=== PATIENT | female | born 1945 | race Caucasian/White ===

== ENCOUNTER → 2020-02-25 06:35 | Outpatient (CLI) | payer MEDICARE, SELFPAY ==
[2020-02-25 07:02] LABS: Absolute Lymphocyte Count 1.52 X10^3/uL (0.83-4.51); Absolute Neutrophil Count 7.6 X10^3/uL (2.0-7.7); Basophil# 0.05 X10^3/uL; Basophil% 0.5 % (0-1); Eosinophil# 0.08 X10^3/uL; Eosinophils% 0.8 % (0-5); Hematocrit 37.6 % (37-47); Hemoglobin 12.4 g/dL (12.0-15.0); Lymphocyte # 1.52 X10^3/ul (4.0); Lymphocyte % 14.4 % (19-41); Mean Corpuscular Hgb 29.6 pg (27.0-32.0); Mean Corpuscular Volume 89.7 fL (81-99); Mean Platelet Vol. 9.6 fl (6.2-12.0); Monocyte# 1.25 X10^3/uL; Monocyte% 11.8 % (0-10); NRBC Flagged by Analyzer 0 % (0-5); Neutrophil # 7.61 X10^3/uL (2.7-7.7); Neutrophil % 71.9 % (47-70); Platelet Count 304 K/mm3 (150-450); RBC Distribution Width CV 13.1 % (11.6-14.6); RBC Distribution Width SD 42.8 fl (35.1-43.9); Red Blood Count 4.19 M/mm3 (4.2-5.4); White Blood Count 10.6 K/mm3 (4.4-11.0)
[2020-02-25 07:26] LABS: ALB/GLOB Ratio 0.9 RATIO (0.9-2.4); AST(SGOT) 30 U/L (15-37); Alanine Aminotransfer ALT/SGPT 30 U/L (13-56); Albumin, Serum 3.7 g/dL (3.2-5.0); Alkaline Phosphatase 62 U/L (45-117); Anion Gap 6 (5-15); BUN 12 mg/dL (7-18); BUN/Creat Ratio 15.9 RATIO (10-20); Calcium,Total 8.7 mg/dL (8.5-10.1); Chloride 100 mmol/L (98-107); Cholesterol 146 mg/dL (200); Creatinine, Serum 0.76 mg/dL (0.55-1.02); EST Glomerular Filtration Rate 80 mL/min (>60); Est Glom Filt Rate - Afr Amer 96 mL/min (>60); Globulin 3.9 g/dL (2.2-4.2); Glucose 92 mg/dL (74-106); High Density Lipoprotein 73 mg/dL; Potassium 4.3 mmol/L (3.5-5.1); Protein, Total 7.6 g/dL (6.4-8.2); Sodium Level 133 mmol/L (136-145); T4 Free Direct 0.91 ng/dL (0.76-1.46); Thyroid Stim Hormone (TSH) 6.16 uIU/mL (0.358-3.74); Triglycerides 101 mg/dL; Very Low Density Lipoprotein 20 mg/dL (5-40)
== END ==
PROVIDERS: PCP Family Medicine; Referring Provider Family Medicine; Visit Provider Family Medicine
DX: E87.1 Hypo-osmolality and hyponatremia (principal); I25.810 Atherosclerosis of coronary artery bypass graft(s) without angina pectoris; I10 Essential (primary) hypertension; E78.00 Pure hypercholesterolemia, unspecified
CPT/HCPCS: 36415; 80053; 80061; 84439; 84443; 85025

== ENCOUNTER 2020-05-30 15:02 | Observation (INO) | payer MEDICARE, SELFPAY ==
[2020-05-30 15:05] VITALS: BP 142/72; PULSE 78; RESP 18; TEMP 35.6; O2SAT 100; BMI 19.1
--- NOTE | 2020-05-30 15:21 | CT_ITS ---
STUDY: CT ABDOMEN AND PELVIS WITH CONTRAST REASON FOR EXAM: Female, 75 years old. N/V/D, ABD PAIN, CABG, OTILIA, APPY, SOFIA, PESSARY RADIATION DOSAGE (If Supplied By Facility): CTDIvol = ( 5.75 ) mGy, DLP = ( 255.72 ) mGycm TECHNIQUE: Transaxial images were obtained from the dome of the diaphragm to the symphysis pubis with oral contrast. Oral and amp; IV Gastrografin and amp; 100mL Isovue-300 was administered. Sagittal and coronal images were reconstructed. Individualized dose optimization techniques were used for this CT. COMPARISON: None. FINDINGS: The visualized lung bases are unremarkable. The visualized portions of the heart are within normal limits. Normal liver. There are surgical clips in the gallbladder fossa consistent with a prior cholecystectomy. Normal spleen. Normal pancreas. Normal bilateral adrenal glands. No acute abnormalities of the kidneys. Multiple bilateral simple renal cysts measuring as much as 5.2 cm. No stones. No hydronephrosis. Stomach is distended with contrast. Normal appearance of the small bowel. No small bowel obstruction. No dilated loops. Normal appearance of the right colon. However contrast has not progressed beyond the hepatic flexure. Transverse colon and descending colon and rectosigmoid are therefore suboptimally evaluated. There is probable prominent bowel wall thickening involving the ascending colon and rectosigmoid consistent with nonspecific colitis. Normal abdominal aorta. Normal inferior vena cava. Normal retroperitoneum. Normal urinary bladder. There is absence of the uterus consistent with a prior hysterectomy. Pessary is seen in the vagina. Normal abdominal wall. Normal osseous structures. CT/Abdomen/Pelvis WITH Contrast IMPRESSION: Findings most consistent with severe nonspecific colitis of the descending colon and rectosigmoid. Consider colonoscopy. Electronically Signed: Jose Danielson MD at 17:27 EST , Service support ,
--- NOTE | 2020-05-30 15:23 | ED.VISSUMM ---
- ER Visit Summary Date of Service: 05/30/20 Chief Complaint: [Vomiting and diarrhea as well as abdominal pain] History of Present Illness: The patient is a 75 F [presents to the emergency department with symptoms that started yesterday. Patient states that she had frequent watery stools yesterday that were bloody and she also vomited about 10 times. She described diffuse abdominal discomfort that was crampy. This morning patient states that she was having some watery stools again and was incontinent of stool. She is not had any further vomiting today. She denies any fever. She denies cough. She denies any sick contacts or exposures to newly with COVID-19. Patient denies recent antibiotic usage. Patient was seen in urgent care earlier today and had lab work ordered as well as a Covid test that was sent out. Patient was then called and told that she had an elevated white blood cell count and abnormal electrolytes and to be evaluated in the emergency department. Currently she rates her pain is a 2 out of 10 and diffuse. No history of inflammatory bowel disease. Patient does have history of hypertension as well as high cholesterol. She has had a cardiac stent placed in the past and she had a bilateral mastectomy.] Physical Examination: [HEENT-PERRLA, EOMI. Cranial nerves II through XII grossly intact. TMs clear. Mucous membranes moist. No adenopathy. Cardiovascular-regular rate and rhythm without murmur or ectopy Lungs-clear to auscultation, chest wall stable without crepitus or subcu emphysema Abdomen-normoactive bowel sounds, soft. Patient has some mild diffuse tenderness on exam. There is no rebound, rigidity, or cranial signs. Extremities-intact ?4, normal range of motion, normal pulses, atraumatic] Test Results: [CBC with differential showed a white count of 27.6, hemoglobin 12.5, hematocrit 37, placed 324. Chemistries showed a sodium of 126, potassium 4.5, chloride 93, CO2 28, glucose 119, BUN 31 and creatinine 1.53.] CT scan of the abdomen pelvis read by radiology as diffuse colitis of the left side of the colon. Emergency Department Course and Treatment: [IV line established on arrival. Patient was given normal saline. Patient started on Cipro and Flagyl IV.] Treatment Plan: [Admit for fluids and IV antibiotics] Disposition: [Admit] Impression: [Colitis Acute kidney injury] This note was generated with [employer] dictation software. It may contain incorrect words, spelling, and punctuation that were not noted in review of the chart prior to signing ED Disposition - Plan for ED Patient: Referrals: Adela Harley MD [Primary Care Provider] -
[2020-05-30] MEDS: 0.9% Normal Saline 1,000 ML 1000 ML IV (15:30)
[2020-05-30 15:52] LABS: Absolute Lymphocyte Count 1.32 X10^3/uL (0.83-4.51); Absolute Neutrophil Count 23.7 X10^3/uL (2.0-7.7); Basophil# 0.06 X10^3/uL; Basophil% 0.2 % (0-1); Eosinophil# 0.01 X10^3/uL; Hematocrit 37.1 % (37-47); Hemoglobin 12.5 g/dL (12.0-15.0); Lymphocyte # 1.32 X10^3/ul (4.0); Lymphocyte % 4.8 % (19-41); Mean Corp Hgb Conc 33.7 g/dL (32-36); Mean Corpuscular Hgb 28.9 pg (27.0-32.0); Mean Corpuscular Volume 85.7 fL (81-99); Mean Platelet Vol. 9.8 fl (6.2-12.0); Monocyte# 2.27 X10^3/uL; Monocyte% 8.2 % (0-10); NRBC Flagged by Analyzer 0 % (0-5); Neutrophil # 23.65 X10^3/uL (2.7-7.7); Neutrophil % 85.7 % (47-70); POSITIVE DIFFERENTIAL YES; Platelet Count 324 K/mm3 (150-450); RBC Distribution Width CV 13.1 % (11.6-14.6); RBC Distribution Width SD 40.5 fl (35.1-43.9); Red Blood Count 4.33 M/mm3 (4.2-5.4); White Blood Count 27.6 K/mm3 (4.4-11.0)
[2020-05-30 16:03] LABS: AST(SGOT) 36 U/L (15-37); Alanine Aminotransfer ALT/SGPT 27 U/L (13-56); Alkaline Phosphatase 69 U/L (45-117); Anion Gap 5 (5-15); BUN 31 mg/dL (7-18); BUN/Creat Ratio 20.3 RATIO (10-20); Calcium,Total 9.2 mg/dL (8.5-10.1); Chloride 93 mmol/L (98-107); Creatinine, Serum 1.53 mg/dL (0.55-1.02); EST Glomerular Filtration Rate 35 mL/min (>60); Est Glom Filt Rate - Afr Amer 43 mL/min (>60); Estimated Creatinine Clearance 22.28 ml/min; Globulin 4.2 g/dL (2.2-4.2); Glucose 119 mg/dL (74-106); Potassium 4.5 mmol/L (3.5-5.1); Protein, Total 8.2 g/dL (6.4-8.2); Sodium Level 126 mmol/L (136-145)
[2020-05-30 16:19] LABS: Lactic Acid 1.6 mmol/L (0.4-1.9)
[2020-05-30 16:30] LABS: Differential Indicated SCAN CRITERIA MET
[2020-05-30 16:31] LABS: Platelet Estimate ADEQUATE (ADEQ)
[2020-05-30 17:04] LABS: Mucous, Urine 0 SEEN /hpf (<or=2+); Red Blood Cells-Urine 0 SEEN /hpf (0-5); White Blood Cells 0 SEEN /hpf (0-5)
[2020-05-30 17:09] VITALS: BP 144/89; PULSE 80; RESP 16; O2SAT 98
[2020-05-30 17:16] LABS: Color, Urine Yellow (Yellow); Glucose, Dipstick Normal (Normal); Ketone-Dipstick Negative (Negative); Leukocyte Esterase-Dipstick Negative /ul (Negative); Nitrite-Dipstick Negative (Negative); Occult Blood-Urine Negative /ul (Negative); Protein-Dipstick Negative (Negative); Urine Bilirubin Dipstick Negative (Negative); Urine Clarity Clear (Clear); Urine Urobilinogen Normal (Normal)
[2020-05-30 17:33] LABS: Bacteria 1+ /hpf (None Seen); Squamous Epithelial Cells - UA 0-5 SEEN /hpf (5-10)
[2020-05-30] MEDS: Ciprofloxacin 400 MG/200 ML BAG 200 MG IV (17:48)
[2020-05-30 18:01] VITALS: BP 147/87; PULSE 88; RESP 16; TEMP 36.2; O2SAT 98
[2020-05-30 18:12] VITALS: BMI 19.3
[2020-05-30 18:31] VITALS: BP 136/76; PULSE 80; RESP 16; TEMP 37; O2SAT 100
[2020-05-30] MEDS: metroNIDAZOLE 500 MG/100 ML BAG 100 MG IV (18:43)
[2020-05-30] MEDS: 0.9% Normal Saline 1,000 ML 100 ML IV (18:45)
--- NOTE | 2020-05-30 18:48 | HP.PCM_ITS ---
History of Present Illness Date of Admission: 05/30/20 Chief Complaint: Nausea, vomiting, diarrhea The patient is a 75 year old F with a PMH as below who presents to the hospital with 24 to 48 hours of nausea, vomiting, diarrhea. She lives alone and has not had any sick contacts. She denies any fevers, respiratory complaints. She does have chills. She is not hypoxic. Family was concerned that she could have Covid so she went through an outpatient test center and she is awaiting results however CT scan in the ER demonstrated a thickened ascending colon consistent with colitis. In the ER her white count is 27 and her creatinine is double her baseline at 1.53. She was given Flagyl and Cipro in the ER which can be continued. She has some abdominal pain mostly on the left side. She did try to take Pepto-Bismol and Imodium which does not seem to have helped. Past Medical History Allergies lactose Adverse Reaction (Verified 05/30/20 15:03) Upset Stomach Penicillins Adverse Reaction (Verified 05/30/20 15:03) Hives Home Medications: Ambulatory Orders Medication Instructions Recorded Amlodipine [Norvasc] 2.5 mg PO DAILY 05/30/20 Aspirin [Aspirin, Baby] 81 mg PO DAILY@0800 05/30/20 Cholecalciferol (Vitamin D3) 50 mcg PO DAILY 05/30/20 [Vitamin D3] Estradiol 0.5 mg PO DAILY 05/30/20 Estradiol 1 ea VAGINAL WE 05/30/20 L.acidoph,Paracasei, B.lactis 1 ea PO DAILY 05/30/20 [Probiotic] Levothyroxine [Synthroid] 25 mcg PO DAILY 05/30/20 Lisinopril [Zestril] 15 mg PO DAILY 05/30/20 Nitroglycerin [Nitrostat] 0.4 mg SL Q5M PRN 05/30/20 Rosuvastatin Calcium 20 mg PO QHS 05/30/20 Surgical History: cholecystectomy, coronary bypass surgery, hysterectomy Smoking Status: Never smoker Tobacco Use: Non-smoker Alcohol: None Drugs: None - *Family History Maternal History Items: Unknown Paternal History Items: Heart Disease Review of Systems Constitutional: Reports: Chills. Denies: Fever, Weight Change HEENT: Denies: Head Aches, Sinus Congestion, Sinus Drainage Cardiovascular: Denies: Chest Pain, Palpitations Respiratory: Denies: Cough, Shortness of breath at rest, Sputum production Gastrointestinal: Reports: Abdominal Pain, Diarrhea, Nausea, Vomiting Genitourinary: Denies: Dysuria Musculoskeletal: Denies: Joint Pain, Joint Tenderness Skin: Denies: Rash, Wounds Neurological: Denies: Numbness, Tingling, Focal weakness Psychiatric: Denies: Anxiety, Depression Hematologic/ Lymphatic: Denies: Easy Bruising, Easy Bleeding VTE Information - Inpt Only VTE Present on Admission: No - Physical Exam Vitals/I&O's: Vital Signs Temp Pulse Resp BP Pulse Ox 98.6 F 80 16 136/76 H 100 05/30/20 18:31 05/30/20 18:31 05/30/20 18:31 05/30/20 18:31 05/30/20 18:31 Oxygen Delivery Method Room Air Weight: 95 lb 11.2 oz Body Mass Index (BMI) 19.3 Intake and Output for Last 24 Hours 05/28/20 05/29/20 05/30/20 23:59 23:59 23:59 Intake Total 1000 / 1000 Balance 1000 / 1000 General: Alert, Oriented x3, Cooperative, No apparent distress HEENT: Atraumatic, PERRLA, EOMI, Normocephalic Oral: Dry Mucosa Neck: Supple, No JVD Lungs: Clear to auscultation, Normal air movement, No rhonchi, No wheeze, No rales Cardiovascular: Regular rate, Regular Rhythm, Normal S1, Normal S2, No murmurs Abdomen: Soft, Non-Distended, No Hepato-splenomegaly, Tender - Mildly to the left lower quadrant Extremities: No edema, Capillary Refill Less than 3 Seconds Skin: No rashes, No breakdown Neurological: Neuro grossly intact, Sensory exam intact to light touch and pain Psych/Mental Status: Normal Affect, Appropriate Laboratory Results 05/30/20 15:30: WBC 27.6 H, RBC 4.33, Hgb 12.5, Hct 37.1, MCV 85.7, MCH 28.9, MCHC 33.7, RDW Std Deviation 40.5, RDW Coeff of Ni[place] 13.1, Plt Count 324, MPV 9.8, Immature Gran % (Auto) 1.100 H, Neut % (Auto) 85.7 H, Lymph % (Auto) 4.8 L, [place] % (Auto) 8.2, Eos % (Auto) 0.0, Baso % (Auto) 0.2, Absolute Neuts (auto) 23.7 H, Absolute Lymphs (auto) 1.32, Nucleated RBC % 0, Differential Comment COMMENT, Diff Path Review May foll, Platelet Estimate ADEQUATE 05/30/20 15:30: Sodium 126 L, Potassium 4.5, Chloride 93 L, Carbon Dioxide 28.0, Anion Gap 5, BUN 31 H, Creatinine 1.53 H, Estim Creat Clear Calc 22.28, Est GFR (MDRD) Af Amer 43 L, Est GFR (MDRD) Non-Af 35 L, BUN/Creatinine Ratio 20.3 H, Glucose 119 H, Calcium 9.2, Total Bilirubin 1.00, AST 36, ALT 27, Alkaline Phosphatase 69, Total Protein 8.2, Albumin 4.0, Globulin 4.2, Albumin/Globulin Ratio 1.0 05/30/20 15:30: Lactic Acid 1.6 05/30/20 17:00: Urine Color Yellow, Urine Clarity Clear, Urine pH 6.0, Ur Specific [place] 1.010, Urine Protein Negative, Urine Glucose (UA) Normal, Urine Ketones Negative, Urine Occult Blood Negative, Urine Nitrite Negative, Urine Bilirubin Negative, Urine Urobilinogen Normal, Ur Leukocyte Esterase Negative, Urine RBC 0 SEEN, Urine WBC 0 SEEN, Ur Squamous Epith Cells 0-5 SEEN, Urine Bacteria 1+, Urine Mucus 0 SEEN Current Medications Acetaminophen (Acetaminophen 325 Mg Tablet) 650 mg PO Q6H PRN PRN PRN Reason: Pain Score 1-10/Temp > 100.7 F Amlodipine Besylate (Amlodipine 2.5 Mg Tablet) 2.5 mg PO DAILY [facility] Aspirin (Aspirin 81 Mg Tab.Chew) 81 mg PO DAILY@0800 [facility] Heparin Sodium (Porcine) (Heparin Injection (Vial) 5,000 Unit/Ml Vial) 5,000 unit SC Q8 [facility] Sodium Chloride () 1,000 mls @ 100 mls/hr IV .Q10H [facility] Last Admin: 05/30/20 18:45 Dose: 100 mls/hr Documented by: Ciprofloxacin (Cipro) 400 mg in 200 mls @ 200 mls/hr IV Q24 [facility] Metronidazole (Flagyl) 500 mg in 100 mls @ 100 mls/hr IV Q8 [facility] Levothyroxine Sodium (Levothyroxine 25 Mcg Tablet) 25 mcg PO DAILY [facility] Lisinopril (Lisinopril 10 Mg Tablet) 15 mg PO DAILY [facility] Melatonin (Melatonin 3 Mg Tablet) 3 mg PO QHS PRN PRN PRN Reason: INSOMNIA Non-Formulary Medication (Cholecalciferol (Vitamin D3) [Vitamin D3]) 50 mcg PO DAILY [facility] Non-Formulary Medication (Rosuvastatin Calcium) 20 mg PO QHS [facility] Ondansetron HCl (Ondansetron 4 Mg/2 Ml Vial) 4 mg IV Q8H PRN PRN PRN Reason: NAUSEA/VOMITING Sodium Chloride (0.9% Saline Lock 10 Ml Syringe) 10 - 40 ml IV UD PRN PRN Reason: SALINE FLUSH Assessment/Plan 1. Acute colitis -Likely infectious based on the white count, and the acute onset presentation -C. difficile and enteric panels are pending -Continue with Cipro and Flagyl -Continue with IV fluids -N.p.o. for now 2. CAD status post CABG and stent/HTN/HLD -Blood pressure is currently stable -Continue with Norvasc, aspirin, lisinopril, Crestor 3. Hypothyroidism -Stable -Continue Synthroid DVT: Heparin Inpatient E&M: 12259 Init Hosp L2
[2020-05-30] MEDS: Heparin Injection (Vial) 5,000 UNIT/ML VIAL 5000 UNIT SC (21:12)
[2020-05-30] MEDS: Atorvastatin Calcium 40 MG Tablet PO (21:12)
[2020-05-30] MEDS: amLODIPine 2.5 MG Tablet PO (21:25)
[2020-05-30 21:29] VITALS: BP 134/64; PULSE 77; RESP 18; TEMP 36.9; O2SAT 98
[2020-05-31 02:24] VITALS: BP 146/56; PULSE 80; RESP 18; TEMP 37.2; O2SAT 98
[2020-05-31] MEDS: metroNIDAZOLE 500 MG/100 ML BAG 100 MG IV ×3 (05:41→21:47)
[2020-05-31] MEDS: Levothyroxine 25 MCG TABLET PO (05:41)
[2020-05-31] MEDS: Heparin Injection (Vial) 5,000 UNIT/ML VIAL 5000 UNIT SC ×3 (05:41→21:50)
[2020-05-31] MEDS: 0.9% Normal Saline 1,000 ML 100 ML IV ×2 (05:41→19:12)
--- NOTE | 2020-05-31 06:57 | PCM.PN.HOSP ---
Reason for Visit: Follow-up on acute colitis Subjective: Patient was seen and examined. She has had 4 bowel movements today. Complains of mild abdominal discomfort. Denies any fever or chills. Bowel movements have less blood than previous. Objective: Physical exam: General: Alert, Oriented x3, Cooperative, No apparent distress HEENT: Atraumatic, PERRLA, EOMI, Normocephalic Oral: Dry Mucosa Neck: Supple, No JVD Lungs: Clear to auscultation, Normal air movement, No rhonchi, No wheeze, No rales Cardiovascular: Regular rate, Regular Rhythm, Normal S1, Normal S2, No murmurs Abdomen: Soft, Non-Distended, No Hepato-splenomegaly, Tender - Mildly to the left lower quadrant Extremities: No edema, Capillary Refill Less than 3 Seconds Skin: No rashes, No breakdown Neurological: Neuro grossly intact, Sensory exam intact to light touch and pain Psych/Mental Status: Normal Affect, Appropriate Vitals/I&O's: Vital Signs Temp Pulse Resp BP Pulse Ox 98.9 F 80 18 146/56 H 98 05/31/20 02:24 05/31/20 02:24 05/31/20 02:24 05/31/20 02:24 05/31/20 02:24 Oxygen Delivery Method Room Air Weight: 43.409 kg Body Mass Index (BMI) 19.3 Intake and Output for Last 24 Hours 05/29/20 05/30/20 05/31/20 23:59 23:59 23:59 Intake Total 1300 / 1300 1100 / 1100 Output Total 200 / 200 Balance 1300 / 1300 900 / 900 Microbiology Past 72 Hours 05/31/20 02:15 Stool C. difficile DNA Amplification - Final Laboratory Results 05/30/20 15:30: WBC 27.6 H, RBC 4.33, Hgb 12.5, Hct 37.1, MCV 85.7, MCH 28.9, MCHC 33.7, RDW Std Deviation 40.5, RDW Coeff of Niya 13.1, Plt Count 324, MPV 9.8, Immature Gran % (Auto) 1.100 H, Neut % (Auto) 85.7 H, Lymph % (Auto) 4.8 L, [place] % (Auto) 8.2, Eos % (Auto) 0.0, Baso % (Auto) 0.2, Absolute Neuts (auto) 23.7 H, Absolute Lymphs (auto) 1.32, Nucleated RBC % 0, Differential Comment COMMENT, Diff Path Review May foll, Platelet Estimate ADEQUATE 05/30/20 15:30: Sodium 126 L, Potassium 4.5, Chloride 93 L, Carbon Dioxide 28.0, Anion Gap 5, BUN 31 H, Creatinine 1.53 H, Estim Creat Clear Calc 22.28, Est GFR (MDRD) Af Amer 43 L, Est GFR (MDRD) Non-Af 35 L, BUN/Creatinine Ratio 20.3 H, Glucose 119 H, Calcium 9.2, Total Bilirubin 1.00, AST 36, ALT 27, Alkaline Phosphatase 69, Total Protein 8.2, Albumin 4.0, Globulin 4.2, Albumin/Globulin Ratio 1.0 05/30/20 15:30: Lactic Acid 1.6 05/30/20 17:00: Urine Color Yellow, Urine Clarity Clear, Urine pH 6.0, Ur Specific [place] 1.010, Urine Protein Negative, Urine Glucose (UA) Normal, Urine Ketones Negative, Urine Occult Blood Negative, Urine Nitrite Negative, Urine Bilirubin Negative, Urine Urobilinogen Normal, Ur Leukocyte Esterase Negative, Urine RBC 0 SEEN, Urine WBC 0 SEEN, Ur Squamous Epith Cells 0-5 SEEN, Urine Bacteria 1+, Urine Mucus 0 SEEN 05/31/20 06:10: WBC Pending, RBC Pending, Hgb Pending, Hct Pending, MCV Pending, MCH Pending, MCHC Pending, RDW Std Deviation Pending, RDW Coeff of Niya Pending, Plt Count Pending, Neut % (Auto) Pending, Absolute Neuts (auto) Pending 05/31/20 06:10: Sodium Pending, Potassium Pending, Chloride Pending, Carbon Dioxide Pending, Anion Gap Pending, BUN Pending, Creatinine Pending, Est GFR (MDRD) Af Amer Pending, Est GFR (MDRD) Non-Af Pending, BUN/Creatinine Ratio Pending, Glucose Pending, Calcium Pending Current Medications Acetaminophen (Acetaminophen 325 Mg Tablet) 650 mg PO Q6H PRN PRN PRN Reason: Pain Score 1-10/Temp > 100.7 F Amlodipine Besylate (Amlodipine 2.5 Mg Tablet) 2.5 mg PO DAILY@2200 [facility] Aspirin (Aspirin 81 Mg Tab.Chew) 81 mg PO DAILY@0800 [facility] Atorvastatin Calcium (Atorvastatin Calcium 40 Mg Tablet) 40 mg PO QHS [facility] Last Admin: 05/30/20 21:12 Dose: 40 mg Documented by: Cholecalciferol (Cholecalciferol (Vit D3) 1,000 Unit (25mcg)) 2,000 unit PO DAILY [facility] Heparin Sodium (Porcine) (Heparin Injection (Vial) 5,000 Unit/Ml Vial) 5,000 unit SC Q8 [facility] Last Admin: 05/31/20 05:41 Dose: 5,000 unit Documented by: Sodium Chloride () 1,000 mls @ 100 mls/hr IV .Q10H [facility] Last Infusion: 05/31/20 06:41 Dose: 100 mls/hr Documented by: Ciprofloxacin (Cipro) 400 mg in 200 mls @ 200 mls/hr IV Q24 [facility] Metronidazole (Flagyl) 500 mg in 100 mls @ 100 mls/hr IV Q8 [facility] Last Infusion: 05/31/20 06:41 Dose: Infused Documented by: Levothyroxine Sodium (Levothyroxine 25 Mcg Tablet) 25 mcg PO DAILY@0600 [facility] Last Admin: 05/31/20 05:41 Dose: 25 mcg Documented by: Lisinopril (Lisinopril 10 Mg Tablet) 15 mg PO DAILY [facility] Melatonin (Melatonin 3 Mg Tablet) 3 mg PO QHS PRN PRN PRN Reason: INSOMNIA Ondansetron HCl (Ondansetron 4 Mg/2 Ml Vial) 4 mg IV Q8H PRN PRN PRN Reason: NAUSEA/VOMITING Sodium Chloride (0.9% Saline Lock 10 Ml Syringe) 10 - 40 ml IV UD PRN PRN Reason: SALINE FLUSH Medical Necessity - Tobacco Use Smoking Status: Never smoker Tobacco Use: Non-smoker Assessment/Plan 1. Acute colitis, unclear etiology Enteric panel and C. difficile negative Patient clinically improving We will resume patient on diet, continue with IV Cipro and Flagyl, IV fluids 2. CAD status post CABG and stent, continue on aspirin, statin, lisinopril 3. Hypertension, controlled, continue on Norvasc and lisinopril 4. Hypothyroidism, stable, continue on home Synthroid 5. DVT prophylaxis with heparin subcu Inpatient E&M: [id number] [facility] Hosp L2
[2020-05-31 07:30] LABS: Anion Gap 8 (5-15); BUN 20 mg/dL (7-18); BUN/Creat Ratio 25.9 RATIO (10-20); Calcium,Total 8.6 mg/dL (8.5-10.1); Chloride 107 mmol/L (98-107); Creatinine, Serum 0.77 mg/dL (0.55-1.02); EST Glomerular Filtration Rate 78 mL/min (>60); Est Glom Filt Rate - Afr Amer 94 mL/min (>60); Estimated Creatinine Clearance 34.34 ml/min; Glucose 70 mg/dL (74-106); Potassium 4.5 mmol/L (3.5-5.1); Sodium Level 136 mmol/L (136-145)
[2020-05-31 08:41] LABS: Absolute Lymphocyte Count 1.42 X10^3/uL (0.83-4.51); Absolute Neutrophil Count 17.6 X10^3/uL (2.0-7.7); Basophil# 0.06 X10^3/uL; Basophil% 0.3 % (0-1); Hematocrit 34.9 % (37-47); Hemoglobin 11.1 g/dL (12.0-15.0); Lymphocyte # 1.42 X10^3/ul (4.0); Lymphocyte % 6.8 % (19-41); Mean Corp Hgb Conc 31.8 g/dL (32-36); Mean Corpuscular Hgb 28.2 pg (27.0-32.0); Mean Corpuscular Volume 88.6 fL (81-99); Mean Platelet Vol. 10.3 fl (6.2-12.0); Monocyte# 1.71 X10^3/uL; Monocyte% 8.2 % (0-10); NRBC Flagged by Analyzer 0 % (0-5); Neutrophil # 17.56 X10^3/uL (2.7-7.7); POSITIVE DIFFERENTIAL YES; Platelet Count 305 K/mm3 (150-450); RBC Distribution Width CV 13.2 % (11.6-14.6); Red Blood Count 3.94 M/mm3 (4.2-5.4); White Blood Count 20.9 K/mm3 (4.4-11.0)
[2020-05-31 08:44] VITALS: BP 129/64; PULSE 77; RESP 16; TEMP 37; O2SAT 97
[2020-05-31] MEDS: Lisinopril 10 MG Tablet 15 MG PO (08:48)
[2020-05-31] MEDS: Ciprofloxacin 400 MG/200 ML BAG 200 MG IV (09:00)
[2020-05-31 09:05] LABS: Differential Indicated SCAN CRITERIA MET
[2020-05-31 09:30] LABS: Hypochromasia RARE; Platelet Estimate ADEQUATE (ADEQ)
[2020-05-31] MEDS: Aspirin 81 MG TAB.CHEW PO (10:47)
--- NOTE | 2020-05-31 11:40 | CASEMGMT ---
RN LISA Face to Face with patient for initial transition planning/care coordination assessment. RN CM introduced self and role at [facility]. Patient lying in bed, alert and oriented. Patient willing to participate in assessment and is able to answer all questions appropriately. Care providers, pharmacy, and demographics verified. Patient wishes to discharge home, denies need for home health at this time. Patient states she has no further needs or concerns at this time. CM to follow for discharge planning needs that may arise. PCP: [facility] Specialists: none Preferred Pharmacy: [facility] Insurance: [employer] [facility] Prescription Benefit:yes Living Will/HPOA: yes, Camelia Jeffries daughter LNOK: daughter, sister Living Arrangements: Patient lives alone in a 1 story home with no steps to enter the home. Patient states she is independent at home. Transportation: self/daughter DME/HHC: Patient states she has grab bars at home. Denies previous HHC. Disposition Plan: Patient to discharge home with family support and follow-up plans in place. Rita VILLA, RN, CM
[2020-05-31 13:48] VITALS: BP 132/59; PULSE 69; RESP 18; TEMP 36.9; O2SAT 98
[2020-05-31 19:50] VITALS: BP 128/66; PULSE 70; RESP 16; TEMP 37.3; O2SAT 97
[2020-05-31] MEDS: Acetaminophen 325 MG Tablet 650 MG PO (20:30)
[2020-05-31 21:00] VITALS: PULSE 70
[2020-05-31] MEDS: amLODIPine 2.5 MG Tablet PO (21:50)
[2020-05-31] MEDS: Atorvastatin Calcium 40 MG Tablet PO (21:50)
[2020-05-31] MEDS: MELATONIN 3 MG TABLET PO (21:54)
[2020-06-01 03:35] VITALS: BP 137/64; PULSE 67; RESP 16; TEMP 36.9; O2SAT 94
[2020-06-01] MEDS: Levothyroxine 25 MCG TABLET PO (06:09)
[2020-06-01] MEDS: metroNIDAZOLE 500 MG/100 ML BAG 100 MG IV (06:09)
[2020-06-01] MEDS: Heparin Injection (Vial) 5,000 UNIT/ML VIAL 5000 UNIT SC (06:10)
[2020-06-01 08:04] VITALS: BP 122/60; PULSE 67; RESP 16; TEMP 36.7; O2SAT 95
[2020-06-01] MEDS: Aspirin 81 MG TAB.CHEW PO (08:06)
[2020-06-01] MEDS: Lisinopril 10 MG Tablet 15 MG PO (08:06)
[2020-06-01] MEDS: Menthol/Lanolin/Calamine/Znox 113 GM Tube 1 APPLIC TOPICAL (08:07)
[2020-06-01] MEDS: 0.9% Normal Saline 1,000 ML 100 ML IV (08:08)
[2020-06-01] MEDS: Ciprofloxacin 400 MG/200 ML BAG 200 MG IV (10:27)
--- NOTE | 2020-06-01 10:44 | DCINST_ITS ---
- Discharge Diagnoses Reason(s) for Visit for Discharge Instructions: Acute on chronic diarrhea You will use the following diet at home:: Regular Your food should be the consistency of: Regular Your liquids should be the consistency of: Regular/Thin Discharge Activity: Return to Normal Activity Additional Instructions: Continue to keep yourself hydrated. Maintain strict hand hygiene. Continue on your probiotics. Follow-up with your primary care doctor within a week. Complete your antibiotics. You would need to be referred to a scraper operator for further evaluation of your chronic diarrhea Allergies/Adverse Reactions: Allergies lactose Adverse Reaction (Verified 05/30/20 15:03) Upset Stomach Penicillins Adverse Reaction (Verified 05/30/20 15:03) Hives Medications to take at Discharge Amlodipine [Norvasc] 2.5 mg PO DAILY 05/30/20 Aspirin [Aspirin, Baby] 81 mg PO DAILY@0800 05/30/20 Cholecalciferol (Vitamin D3) [Vitamin D3] 50 mcg PO DAILY 05/30/20 Estradiol 0.5 mg PO DAILY 05/30/20 Estradiol 1 ea VAGINAL WE 05/30/20 L.acidoph,Paracasei, B.lactis [Probiotic] 1 ea PO DAILY 05/30/20 Levothyroxine [Synthroid] 25 mcg PO DAILY 05/30/20 Lisinopril [Zestril] 15 mg PO DAILY 05/30/20 Nitroglycerin [Nitrostat] 0.4 mg SL Q5M PRN 05/30/20 Rosuvastatin Calcium 20 mg PO QHS 05/30/20 Acetaminophen [Tylenol Tablet] 650 mg PO Q6H PRN PRN tablet 06/01/20 Ciprofloxacin [Cipro] 500 mg PO BID 5 Days #10 tab 06/01/20 Metronidazole [Flagyl] 500 mg PO TID 5 Days #15 tab 06/01/20 The following prescriptions were given: Ciprofloxacin [Cipro] 500 mg PO BID 5 Days #10 tab Transmission Status: Pending to [facility] Metronidazole [Flagyl] 500 mg PO TID 5 Days #15 tab Transmission Status: Pending to [facility] Primary Care Physician: Adela Harley MD [Primary Care Provider] - Please follow up with your Primary Care Physician in: within 1-2 weeks Test Results: Test results from this visit will be discussed in further detail at your follow- up appointment, if applicable. Proposed Discharge Date: 06/01/20
--- NOTE | 2020-06-01 11:12 | PCM.DC.SUM ---
Discharge Date and Diagnosis Date of Admission: 05/30/20 Date of Discharge: 06/01/20 - Primary Discharge Diagnosis Acute Problems: Acute gastroenteritis, present on admission Acute colitis Hypokalemia Acute kidney injury, prerenal secondary to dehydration from gastroenteritis - Secondary Discharge Diagnosis Chronic Problems: Chronic Problems Hypertension (Chronic) Hospital Course and Treatment Imaging Results: Clinical Impression(s) from Imaging Studies Abdomen/Pelvis CT 05/30/20 15:21 IMPRESSION: Findings most consistent with severe nonspecific colitis of the descending colon and rectosigmoid. Consider colonoscopy. Electronically Signed: Jose Danielson MD at 17:27 EST , Service support , Operations: None Procedures: None Summary of Care Provided: The patient is a 75 year old F with past medical history of CAD status post CABG and stent, hypertension, hypothyroidism who comes in with complaints of abdominal pain, nausea, vomiting, diarrhea. Patient denied any sick contact. Denied any fever. She admitted to chills. Patient admits to chronic diarrhea but this is worse.CT of the abdomen and pelvis showed thickening ascending colon consistent with colitis. She was managed on the [facility] floor, kept n.p.o. initially, managed on IV fluids, IV antibiotics?Cipro and Flagyl. Her acute kidney injury improved. She was allowed to eat. Did not have any worsening symptoms. Her stool for enteric panel and cdiff were negative. Patient had 3 bowel movements on the day of discharge. She was given Imodium. She was given antibiotics to complete a 1 week course. She will follow-up with her primary care doctor for referral to see a program services assistant for further work-up of chronic diarrhea Subjective: On the day of discharge, patient was seen and examined. Denied any new complaints. Objective: Physical exam: General: Alert, Oriented x3, Cooperative, No apparent distress HEENT: Atraumatic, PERRLA, EOMI, Normocephalic Oral: Dry Mucosa Neck: Supple, No JVD Lungs: Clear to auscultation, Normal air movement, No rhonchi, No wheeze, No rales Cardiovascular: Regular rate, Regular Rhythm, Normal S1, Normal S2, No murmurs Abdomen: Soft, Non-Distended, No Hepato-splenomegaly, Tender - Mildly to the left lower quadrant Extremities: No edema, Capillary Refill Less than 3 Seconds Skin: No rashes, No breakdown Neurological: Neuro grossly intact, Sensory exam intact to light touch and pain Psych/Mental Status: Normal Affect, Appropriate - Physical Exam Vitals/I&O's: Vital Signs Temp Pulse Resp BP Pulse Ox 98.0 F 67 16 122/60 H 95 06/01/20 08:04 06/01/20 08:04 06/01/20 08:04 06/01/20 08:04 06/01/20 08:04 Oxygen Delivery Method Room Air Weight: 43.409 kg Body Mass Index (BMI) 19.3 Intake and Output for Last 24 Hours 05/30/20 05/31/20 06/01/20 23:59 23:59 23:59 Intake Total 1300 / 1300 2980.00 / 2980.00 1695 / 1695 Output Total 200 / 200 Balance 1300 / 1300 2780.00 / 2780.00 1695 / 1695 Microbiology Past 72 Hours 05/31/20 02:15 Stool Enteric Bacteriology - Final 05/31/20 02:15 Stool C. difficile DNA Amplification - Final Current Medications Acetaminophen (Acetaminophen 325 Mg Tablet) 650 mg PO Q6H PRN PRN PRN Reason: Pain Score 1-10/Temp > 100.7 F Last Admin: 05/31/20 20:30 Dose: 650 mg Documented by: Amlodipine Besylate (Amlodipine 2.5 Mg Tablet) 2.5 mg PO DAILY@2200 [facility] Last Admin: 05/31/20 21:50 Dose: 2.5 mg Documented by: Aspirin (Aspirin 81 Mg Tab.Chew) 81 mg PO DAILY@0800 [facility] Last Admin: 06/01/20 08:06 Dose: 81 mg Documented by: Atorvastatin Calcium (Atorvastatin Calcium 40 Mg Tablet) 40 mg PO QHS [facility] Last Admin: 05/31/20 21:50 Dose: 40 mg Documented by: Calamine/Phenol (Menthol/Lanolin/Calamine/Znox 113 Gm Tube) 1 applic TOPICAL BID [facility]; Protocol Last Admin: 06/01/20 08:07 Dose: 1 applicatio Documented by: Cholecalciferol (Cholecalciferol (Vit D3) 1,000 Unit (25mcg)) 2,000 unit PO DAILY [facility] Last Admin: 06/01/20 08:06 Dose: 2,000 unit Documented by: Heparin Sodium (Porcine) (Heparin Injection (Vial) 5,000 Unit/Ml Vial) 5,000 unit SC Q8 [facility] Last Admin: 06/01/20 06:10 Dose: 5,000 unit Documented by: Ciprofloxacin (Cipro) 400 mg in 200 mls @ 200 mls/hr IV Q24 [facility] Last Admin: 06/01/20 10:27 Dose: 200 mls/hr Documented by: Metronidazole (Flagyl) 500 mg in 100 mls @ 100 mls/hr IV Q8 [facility] Last Infusion: 06/01/20 07:44 Dose: Infused Documented by: Levothyroxine Sodium (Levothyroxine 25 Mcg Tablet) 25 mcg PO DAILY@0600 [facility] Last Admin: 06/01/20 06:09 Dose: 25 mcg Documented by: Lisinopril (Lisinopril 10 Mg Tablet) 15 mg PO DAILY [facility] Last Admin: 06/01/20 08:06 Dose: 15 mg Documented by: Melatonin (Melatonin 3 Mg Tablet) 3 mg PO QHS PRN PRN PRN Reason: INSOMNIA Last Admin: 05/31/20 21:54 Dose: 3 mg Documented by: Ondansetron HCl (Ondansetron 4 Mg/2 Ml Vial) 4 mg IV Q8H PRN PRN PRN Reason: NAUSEA/VOMITING Sodium Chloride (0.9% Saline Lock 10 Ml Syringe) 10 - 40 ml IV UD PRN PRN Reason: SALINE FLUSH Discharge Diet: No Restrictions Discharge Activity: Return to Normal Activity Home Medications: Medications to take at Discharge Amlodipine [Norvasc] 2.5 mg PO DAILY 05/30/20 Aspirin [Aspirin, Baby] 81 mg PO DAILY@0800 05/30/20 Cholecalciferol (Vitamin D3) [Vitamin D3] 50 mcg PO DAILY 05/30/20 Estradiol 0.5 mg PO DAILY 05/30/20 Estradiol 1 ea VAGINAL WE 05/30/20 L.acidoph,Paracasei, B.lactis [Probiotic] 1 ea PO DAILY 05/30/20 Levothyroxine [Synthroid] 25 mcg PO DAILY 05/30/20 Lisinopril [Zestril] 15 mg PO DAILY 05/30/20 Nitroglycerin [Nitrostat] 0.4 mg SL Q5M PRN 05/30/20 Rosuvastatin Calcium 20 mg PO QHS 05/30/20 Acetaminophen [Tylenol Tablet] 650 mg PO Q6H PRN PRN tab 06/01/20 Ciprofloxacin [Cipro] 500 mg PO BID 5 Days #10 tab 06/01/20 Metronidazole [Flagyl] 500 mg PO TID 5 Days #15 tab 06/01/20 Following Prescriptions Were Given to Patient: Ciprofloxacin [Cipro] 500 mg PO BID 5 Days #10 tab Transmission Status: Received by CHRISTINA H[address] Metronidazole [Flagyl] 500 mg PO TID 5 Days #15 tab Transmission Status: Received by CHRISTINA H[address]LE[address] Primary Care Physician: Adela Harley MD [Primary Care Provider] - Please follow up with your Primary Care Physician in: within 1-2 weeks Disposition: Home Minutes spent on discharge:: 40 Patient Condition:: Stable Medical Necessity - Tobacco Use Smoking Status: Never smoker Tobacco Use: Non-smoker Meaningful Use Info Meaningful Use Diagnoses (Choose all that apply): None applicable Inpatient E&M: 66182 [facility]
[2020-06-01] MEDS: Loperamide 2 MG Capsule 4 MG PO (11:19)
[2020-06-02 12:56] LABS: Pathologist Review Reviewed
[2020-06-02 13:02] LABS: Pathologist Review Reviewed
== END 2020-06-01 12:20 | disposition home or self-care (01) | DRG 392 ==
LOC: ED 15:42 → MS3 17:45
PROVIDERS: Admitting Provider Family Medicine; Emergency Provider Emergency Medicine; PCP Family Medicine; Visit Provider Internal Medicine
DX: K52.9 Noninfective gastroenteritis and colitis, unspecified (principal); N17.9 Acute kidney failure, unspecified; E86.0 Dehydration; I10 Essential (primary) hypertension; E78.5 Hyperlipidemia, unspecified; E03.9 Hypothyroidism, unspecified; E87.6 Hypokalemia; I25.10 Atherosclerotic heart disease of native coronary artery without angina pectoris; Z79.890 Hormone replacement therapy; Z90.13 Acquired absence of bilateral breasts and nipples; Z90.710 Acquired absence of both cervix and uterus; Z95.1 Presence of aortocoronary bypass graft; Z79.899 Other long term (current) drug therapy; Z79.82 Long term (current) use of aspirin
CPT/HCPCS: 36415; 74177; 80048; 80053; 81001; 83605; 85025; 87493; 87506; 96361; 96365; 96366; 96367; 96372; 99218; 99282; J7030; J7050; Q9967; A4216; G0378; J0744

== ENCOUNTER → 2020-06-25 11:37 | Outpatient (CLI) | payer MEDICARE, SELFPAY ==
[2020-05-30 18:12] VITALS: BMI 19.3
[2020-06-25 14:11] LABS: CRP 7.14 mg/L (0.0-3.0); T4 Total, Thyroxin 9.1 ug/dL (4.8-13.9); Thyroid Stim Hormone (TSH) 2.83 uIU/mL (0.358-3.74)
[2020-06-26 20:07] LABS: Endomysial Antibody IgA Negative (Negative)
[2020-06-26 21:44] LABS: Immunoglobulin A 226 mg/dL (64-422); t-Transglutaminase IgA <2 U/mL (0-3)
== END ==
PROVIDERS: PCP Family Medicine; Referring Provider Internal Medicine Gastroenterology; Visit Provider Internal Medicine Gastroenterology
DX: R19.7 Diarrhea, unspecified (principal)
CPT/HCPCS: 36415; 82784; 83516; 84436; 84443; 86140; 86255

== ENCOUNTER → 2020-08-18 07:42 | Outpatient (CLI) | payer MEDICARE, SELFPAY ==
[2020-07-17 14:40] VITALS: BMI 18.9
[2020-08-18 08:53] LABS: Absolute Lymphocyte Count 1.62 X10^3/uL (0.83-4.51); Absolute Neutrophil Count 6.9 X10^3/uL (2.0-7.7); Basophil# 0.08 X10^3/uL; Basophil% 0.8 % (0-1); Eosinophil# 0.13 X10^3/uL; Eosinophils% 1.3 % (0-5); Hemoglobin 11.8 g/dL (12.0-15.0); Lymphocyte # 1.62 X10^3/ul (4.0); Lymphocyte % 16.5 % (19-41); Mean Corp Hgb Conc 31.9 g/dL (32-36); Mean Corpuscular Hgb 28.5 pg (27.0-32.0); Mean Corpuscular Volume 89.4 fL (81-99); Monocyte# 1.12 X10^3/uL; Monocyte% 11.4 % (0-10); NRBC Flagged by Analyzer 0 % (0-5); Neutrophil # 6.86 X10^3/uL (2.7-7.7); Neutrophil % 69.7 % (47-70); Platelet Count 318 K/mm3 (150-450); RBC Distribution Width CV 13.1 % (11.6-14.6); RBC Distribution Width SD 42.9 fl (35.1-43.9); Red Blood Count 4.14 M/mm3 (4.2-5.4); White Blood Count 9.8 K/mm3 (4.4-11.0)
[2020-08-18 09:32] LABS: AST(SGOT) 37 U/L (15-37); Alanine Aminotransfer ALT/SGPT 37 U/L (13-56); Alkaline Phosphatase 54 U/L (45-117); Anion Gap 6 (5-15); BUN 12 mg/dL (7-18); Calcium,Total 9.1 mg/dL (8.5-10.1); Chloride 102 mmol/L (98-107); Cholesterol 146 mg/dL (200); Creatinine, Serum 0.75 mg/dL (0.55-1.02); EST Glomerular Filtration Rate 80 mL/min (>60); Est Glom Filt Rate - Afr Amer 97 mL/min (>60); Free T3 2.3 pg/mL (2.18-3.98); Globulin 3.9 g/dL (2.2-4.2); Glucose 85 mg/dL (74-106); High Density Lipoprotein 65 mg/dL; Potassium 3.9 mmol/L (3.5-5.1); Protein, Total 7.9 g/dL (6.4-8.2); Sodium Level 136 mmol/L (136-145); T4 Free Direct 0.95 ng/dL (0.76-1.46); Thyroid Stim Hormone (TSH) 5.02 uIU/mL (0.358-3.74); Triglycerides 125 mg/dL; Very Low Density Lipoprotein 25 mg/dL (5-40)
== END ==
PROVIDERS: PCP Family Medicine; Referring Provider Family Medicine; Visit Provider Family Medicine
DX: I25.10 Atherosclerotic heart disease of native coronary artery without angina pectoris (principal); E03.9 Hypothyroidism, unspecified
CPT/HCPCS: 36415; 80053; 80061; 84439; 84443; 84481; 85025

== ENCOUNTER → 2020-10-29 09:13 | Outpatient (CLI) | payer MEDICARE, SELFPAY ==
[2020-07-17 14:40] VITALS: BMI 18.9
[2020-10-29 10:28] LABS: Absolute Lymphocyte Count 1.16 X10^3/uL (0.83-4.51); Basophil# 0.05 X10^3/uL; Basophil% 0.7 % (0-1); Eosinophil# 0.04 X10^3/uL; Eosinophils% 0.6 % (0-5); Hematocrit 37.2 % (37-47); Hemoglobin 11.9 g/dL (12.0-15.0); Lymphocyte # 1.16 X10^3/ul (0.83-4.51); Lymphocyte % 16.5 % (19-41); Mean Corpuscular Hgb 28.4 pg (27.0-32.0); Mean Corpuscular Volume 88.8 fL (81-99); Monocyte% 11.3 % (0-10); NRBC Flagged by Analyzer 0 % (0-5); Neutrophil # 4.97 X10^3/uL (2.7-7.7); Neutrophil % 70.5 % (47-70); Platelet Count 282 K/mm3 (150-450); RBC Distribution Width CV 12.9 % (11.6-14.6); RBC Distribution Width SD 41.7 fl (35.1-43.9); Red Blood Count 4.19 M/mm3 (4.2-5.4); White Blood Count 7.1 K/mm3 (4.4-11.0)
[2020-10-29 11:05] LABS: Vitamin B12 431 pg/mL (211-911)
[2020-10-29 11:15] LABS: Ferritin 99 ng/mL (8-252); Free T3 2.4 pg/mL (2.18-3.98); Iron 57 ug/dL (50-170); Iron Binding Capacity,Total 344 ug/dL (250-450); PERCENT IRON SATURATION 16.6 % (15.0-55.0); T4 Free Direct 0.96 ng/dL (0.76-1.46); Thyroid Stim Hormone (TSH) 2.63 uIU/mL (0.358-3.74)
== END ==
PROVIDERS: PCP Family Medicine; Referring Provider Family Medicine; Visit Provider Family Medicine
DX: E03.9 Hypothyroidism, unspecified (principal); D64.9 Anemia, unspecified
CPT/HCPCS: 36415; 82607; 82728; 82746; 83540; 83550; 84439; 84443; 84481; 85025

== ENCOUNTER → 2021-01-09 06:52 | Outpatient (CLI) | payer MEDICARE, SELFPAY ==
[2020-12-24 12:19] VITALS: BMI 19.1
--- NOTE | 2021-01-09 06:54 | ECHOD_ITS ---
Version 2 Reason For Study: s/p CABG Procedure This was a 2D Doppler, Color Flow transthoracic echocardiogram. Exam performed in department. Left Ventricle Normal LV size. Left ventricular systolic function is normal. The estimated ejection fraction is 55 %. No regional wall motion abnormalities noted. Right Ventricle Normal RV size. Normal systolic function. Atria Normal left atrium. Normal right atrium. Mitral Valve Normal mitral valve. Tricuspid Valve Normal tricuspid valve. Mild (1+) tricuspid valve insufficiency. Pulmonary artery systolic pressure is 28 mmHg. Aortic Valve Trisinus/trileaflet aortic valve. Mild (1+) aortic valve insufficiency. Pulmonic Valve Normal pulmonic valve. Great Vessels Normal aortic root. The pulmonary artery is normal size. Normal inferior vena cava. Pericardium/Pleural No pericardial effusion. MMode/2D Measurements & Calculations LVIDd: 3.6 cm IVSd: 0.84 cm Ao root diam: 2.8 cm LVIDs: 2.4 cm LVPWd: 0.83 cm RVDd: 2.6 cm FS: 33.7 % LAV(MOD-bp): 21.0 ml LA A4 area: 7.9 cm2 LA dimension(2D): 2.9 cm LAV(MOD-bp) Indexed: 15.4 ml/m2 LAV(MOD-sp2): 32.3 ml LAV(MOD-sp4): 12.8 ml RA A4 area: 8.7 cm2 Doppler Measurements & Calculations MV E max josep: 89.5 cm/sec Lat Peak E' Josep: 9.7 cm/sec Med Peak E' Josep: 5.7 cm/sec MV A max josep: 82.3 cm/sec E/E' lat: 9.2 E/E' med: 15.8 MV E/A: 1.1 Ao V2 max: 148.0 cm/sec LV V1 max: 89.5 cm/sec PA V2 max: 72.5 cm/sec Ao max P.8 mmHg LV V1 max P.2 mmHg Ao V2 mean: 104.5 cm/sec Ao mean P.7 mmHg Ao V2 VTI: 38.8 cm TR max josep: 246.5 cm/sec TR max P.3 mmHg ECHO/Echo Complete Interpretation Summary Normal LV size. Left ventricular systolic function is normal. The estimated ejection fraction is 55 %. Mild (1+) tricuspid valve insufficiency. Pulmonary artery systolic pressure is 28 mmHg. The global longitudinal strain is normal. The global longitudinal strain = -17. 8 % (normal). Ordering Physician: Josesito Valenzuela Referring Physician: Adela Harley Performed By: Mila Overton, EDGARD, RVT
--- NOTE | 2021-01-09 17:50 | STRESSREP_ITS ---
Stress Test Report Exercise myocardial perfusion stress test. 75-year-old with a history of coronary artery disease status post left internal mammary artery to the left anterior descending artery. Stress protocol: Resting EKG demonstrates sinus bradycardia with a rate of 56 bpm normal intervals are noted resting blood pressure is 128/68 mmHg. The patient exe rcised according to the regular Buzz protocol for total duration of 6 minutes. Patient completed stage II of the Buzz protocol. The maximum heart rate attained was 125 bpm which was 85% of maximum predicted heart rate the maximum workload was 7 metabolic equivalents. At rest there were no ST or T wave changes noted to suggest ischemia and at peak exercise upsloping ST changes were noted with did not meet the criteria for ischemia. There was mild chest pressure noted as well as shortness of breath. The peak blood pressure was 160/90 mmHg. Myocardial perfusion protocol. 10.0 mCi of technetium 99m sestamibi was injected at rest. The patient exercised according to regular Buzz protocol. At peak exercise 31.5 mCi of technetium 99m sestamibi was injected stress images were obtained stress and rest images were reconstructed and compared in the short axis vertical long and horizontal long axis. Gated images were also obtained. Perfusion SPECT analysis: Review of the stress images demonstrate a normal cardiac silhouette size. There was reduction of perfusion noted in the mid anterior wall with normal perfusion noted in the septum lateral wall and inferior wall. The resting images demonstrate improved perfusion in the anterior wall suggesting mid anterior ischemia. No previous infarct is noted. Gated SPECT analysis: The gated ejection fraction is noted to be 77%. Conclusion: Exercise myocardial perfusion stress test with mid anterior ischemia noted. Mild chest pressure noted with exercise suggestive of ischemia. Preserved ejection fraction.
== END ==
PROVIDERS: PCP Family Medicine; Referring Provider Internal Medicine Cardiovascular Disease; Visit Provider Internal Medicine Cardiovascular Disease
DX: I25.10 Atherosclerotic heart disease of native coronary artery without angina pectoris (principal); Z95.1 Presence of aortocoronary bypass graft
CPT/HCPCS: 78452; 93017; 93306; A9500; A4216

== ENCOUNTER 2021-01-26 08:45 | Day surgery (SDC) | payer MEDICARE, SELFPAY ==
[2020-12-24 12:19] VITALS: BMI 19.1
--- NOTE | 2021-01-15 08:35 | RAD_ITS ---
INDICATION: CAD EXAMINATION/TECHNIQUE: X-RAY - XR Chest 2 Views COMPARISON: None. FINDINGS: The lungs are clear. The cardiomediastinal silhouette is unremarkable. Vascular clips in mediastinum. No pleural effusion or pneumothorax. No acute osseous abnormalities. RAD/Chest PA and Lateral IMPRESSION: No acute radiographic abnormalities. Electronically Signed: Dax Zamora MD at 22:53 EDT Tel , Service support ,
[2021-01-15 10:04] LABS: Absolute Lymphocyte Count 1.41 X10^3/uL (0.83-4.51); Absolute Neutrophil Count 6.6 X10^3/uL (2.0-7.7); Basophil# 0.05 X10^3/uL; Basophil% 0.6 % (0-1); Eosinophil# 0.03 X10^3/uL; Eosinophils% 0.3 % (0-5); Hematocrit 37.7 % (37-47); Hemoglobin 12.2 g/dL (12.0-15.0); Lymphocyte # 1.41 X10^3/ul (0.83-4.51); Lymphocyte % 15.6 % (19-41); Mean Corp Hgb Conc 32.4 g/dL (32-36); Mean Corpuscular Hgb 28.4 pg (27.0-32.0); Mean Corpuscular Volume 87.9 fL (81-99); Mean Platelet Vol. 9.7 fl (6.2-12.0); Monocyte# 0.91 X10^3/uL; Monocyte% 10.1 % (0-10); NRBC Flagged by Analyzer 0 % (0-5); Neutrophil # 6.61 X10^3/uL (2.7-7.7); Platelet Count 291 K/mm3 (150-450); RBC Distribution Width CV 13.3 % (11.6-14.6); RBC Distribution Width SD 43.1 fl (35.1-43.9); Red Blood Count 4.29 M/mm3 (4.2-5.4); White Blood Count 9.1 K/mm3 (4.4-11.0)
[2021-01-15 10:49] LABS: Anion Gap 9 (5-15); BUN 10 mg/dL (7-18); BUN/Creat Ratio 13.5 RATIO (10-20); Calcium,Total 9.3 mg/dL (8.5-10.1); Chloride 100 mmol/L (98-107); Creatinine, Serum 0.74 mg/dL (0.55-1.02); EST Glomerular Filtration Rate 82 mL/min (>60); Est Glom Filt Rate - Afr Amer 99 mL/min (>60); Glucose 87 mg/dL (74-106); Potassium 4.2 mmol/L (3.5-5.1); Sodium Level 135 mmol/L (136-145)
[2021-01-23 08:56] VITALS: BMI 19.3
--- NOTE | 2021-01-26 10:39 | CL.D_ITS ---
Patient Name: BEN ARROYO Study Date: 01/26/2021 Performing: Josesito Valenzuela MD Ht: 59.05 inches 150 cm : 1945 Wt: 97 lbs 44 kg Age: 75 Gender: female BSA: 1.36 PROCEDURE(S) PERFORMED [id number]/COR/LV/CABG CLINICAL PROFILE AND INDICATIONS Indications: Suspected CAD Heart Failure: None Stress/Imaging Date: 01/09/21ress Test with SPECT MPI: Positive Intermediate Risk CAD Presentations: Stable angina. CONCLUSIONS Significant coronary artery disease involving a calcified dominant right coronary artery, moderate di sease in the circumflex artery and a patent AUGUSTINE to the LAD. RECOMMENDATIONS Will recommend FFR to the left circumflex artery. If it is unremarkable would then will suggest rota blation to the calcified right coronary artery. To be performed in a different facility. DESCRIPTION OF PROCEDURE The patient arrived to the procedure lab. The risks and benefits of the procedure as well as a full d escription of our services here and current unavailability of surgical backup were fully explained to the patient and/or their significant other prior to the catheterization. The Timeout was completed, verifying the correct patient and procedure. The patient's procedural site was prepped and draped in the usual fashion. Local anesthetic was given subcutaneously to right groin region with Lidocaine 2%- NNAGAMIKE. Using a modified Seldinger technique, arterial access was obtained via the right femoral artery, a 5Fr sheath was inserted.-NNAGAMIKE Left Coronary Artery selective angiography was perform ed in multiple views using a 5 Fr. JL4 catheter. Right Coronary Artery selective angiography was then performed in multiple views using a 5 Fr. 3DRC (Jose) catheter. Left Ventriculography was perfor med in BRANDT projection using a 5 Fr. Pigtail catheter. LV to AO pullback pressures were then recorded. CORONARY ANGIOGRAPHY DOMINANCE: Right Dominant LEFT HEART ASSESSMENT Left Ventricular Ejection Fraction: by LV Gram 60 % Normal LV wall motion Normal Left Ventricular systolic function LEFT MAIN: Mild calcification LEFT ANTERIOR DESCENDING ARTERY: PROX LAD: Previously placed stent is occluded CIRCUMFLEX ARTERY: OM 1: Proximal - 60% hazy stenosis % Stenosis RIGHT CORONARY ARTERY: Large dominant vessel significantly calcified with a long 80% stenosis in the proximal to mid region and a 70% stenosis in the distal vessel. GRAFTS: AUGUSTINE graft to the Mid LAD is patent COMPLICATIONS PROCEDURE MEDICATIONS Versed 1 mg IV Versed 1 mg IV Oxygen: 2 L/min via nasal cannula Heparin 3000 unit(s) IV 01/26/2021 10:32:16 SUMMARY OF HEMODYNAMIC DATA Time AIR REST ECG 09:16:13 AO 172/63 (105) SA 09:57:16 AO 174/74 (115) 10:06:04 LV 138/0, 9 10:15:18 LV 136/0, 10 10:15:25 LV 134/3, 12 10:16:07 LVp 135/1, 12 10:16:16 AOp 139/60 (92) 10:16:21 10:32:04 AIR REST AO 186/81 (124) 10:32:27 Signed By Josesito Valenzuela MD On 01/26/2021 10:38:57 AM Josesito Valenzuela MD
--- NOTE | 2021-01-26 12:14 | CL.I_ITS ---
Patient Name: BEN ARROYO Study Date: 01/26/2021 Performing: Dexter Mckenna MD Ht: 59.05 inches 150 cm : 1945 Wt: 97 lbs 44 kg Age: 75 Gender: female BSA: 1.36 PROCEDURE(S) PERFORMED [id number], CORONARY OR GRAFT, INITIAL VESSEL CLINICAL PROFILE AND CO-MORBIDITIES Indications: Suspected CAD Heart Failure: None Stress/Imaging Date: 01/09/21 Stress Test with SPECT MPI: Positive Intermediate Risk CAD Presentations: Stable angina. CONCLUSIONS FFR in the OM is 0.89 which is consistent with stenosis that can be treated medically RECOMMENDATIONS PCI of RCA with rotablation DESCRIPTION OF PROCEDURE The patient arrived to the procedure lab. The risks and benefits of the procedure as well as a full d escription of our services here and current unavailability of surgical backup were fully explained to the patient and/or their significant other prior to the catheterization. The Timeout was completed, verifying the correct patient and procedure. The patient's procedural site was prepped and draped in the usual fashion. Local anesthetic was given subcutaneously to right groin region with Lidocaine 2%- NNAGAMIKE Using a modified Seldinger technique,arterial access was obtained via the right femoral ar justin, a 5Fr sheath was inserted.-CAMILA Left Coronary Artery selective angiography was performed in multiple views using a 5 Fr. JL4 catheter. Right Coronary Artery selective angiography was then pe rformed in multiple views using a 5 Fr. 3DRC (Jose) catheter. Left Ventriculography was performed in BRANDT projection using a 5 Fr. Pigtail catheter. LV to AO pullback pressures were then recorded.The images were reviewed and options discussed. A decision was then made to proceed with an Intervention, IVUS or other adjunct procedure. Arterial sheath was exchanged for a 6 Fr Sheath. JL 4.0 Guide catheter was inserted and engaged i nto the LCA. The FFR/iFR wire was inserted. Adenosine was then given per protocol. Pressures and FFR/ iFR were then recorded. FFR Ratio Baseline: 1.0 FFR Ratio post Adenosine: 0.89 The FFR/iFR wire was t hen removed. The arterial sheath was pulled and a Perclose closure device was deployed for hemostas is INTERVENTION INFORMATION LESION SITE: 1st OM (Proximal) Lesion Complexity: Non-High/Non-C, chronic total occlusion: No, chronic total occlusion: No, lesion a t bifurcation: Yes, thrombus present: No, lesion length: 6 mm, culprit lesion: No Pre Stenosis: 60 % Pre intervention ALEX flow: 3 PROCEDURE: FFR Post Stenosis: 60 % Post intervention ALEX flow: 3 Lesion Devices: IGT Devices ( Formerly [employer]) Coronary FFR Wire Medtronic 6 Fr JL4.0 100cm Guide Catheter COMPLICATIONS No Complications PROCEDURE MEDICATIONS Versed 1 mg IV Versed 1 mg IV Oxygen: 2 L/min via nasal cannula Adenosine drip for FFR 18.1 ml IV @ 01/26/2021 10:40:57 Heparin 3000 unit(s) IV 01/26/2021 10:32:16 SUMMARY OF HEMODYNAMIC DATA Time AIR REST ECG 09:16:13 AO 172/63 (105) SA 09:57:16 AO 174/74 (115) 10:06:04 LV 138/0, 9 10:15:18 LV 136/0, 10 10:15:25 LV 134/3, 12 10:16:07 LVp 135/1, 12 10:16:16 AOp 139/60 (92) 10:16:21 RM AIR REST 10:32:04 AIR REST AO 186/81 (124) 10:32:27 Signed By Dexter Mckenna MD On 01/26/2021 12:14:18 Dexter Mckenna MD
== END 2021-01-26 14:20 | disposition home or self-care (01) ==
LOC: CLSP 08:46
PROVIDERS: PCP Family Medicine; Referring Provider Internal Medicine Cardiovascular Disease; Visit Provider Internal Medicine Cardiovascular Disease
DX: I25.118 Atherosclerotic heart disease of native coronary artery with other forms of angina pectoris (principal); I10 Essential (primary) hypertension; E78.5 Hyperlipidemia, unspecified; E03.9 Hypothyroidism, unspecified; M19.90 Unspecified osteoarthritis, unspecified site; K58.9 Irritable bowel syndrome, unspecified; K21.9 Gastro-esophageal reflux disease without esophagitis; F41.9 Anxiety disorder, unspecified; Z79.82 Long term (current) use of aspirin; Z79.890 Hormone replacement therapy; Z79.899 Other long term (current) drug therapy; Z85.3 Personal history of malignant neoplasm of breast; Z95.5 Presence of coronary angioplasty implant and graft; Z95.1 Presence of aortocoronary bypass graft; Z90.13 Acquired absence of bilateral breasts and nipples
CPT/HCPCS: 36415; 80048; 85025; 93459; 93571; 99152; 99153; J0153; J7040; C1760; C1769; C1887; Q9967

== ENCOUNTER 2021-02-01 12:07 | Emergency (ER) | payer MEDICARE, SELFPAY ==
[2021-01-23 08:56] VITALS: BMI 19.3
[2021-02-01] VITALS (8 sets, daily range): BP systolic 124–167; BP diastolic 66–98; PULSE 53–86; RESP 12–18; TEMP 36.7; O2SAT 95–100; BMI 20.9
--- NOTE | 2021-02-01 12:27 | EKG12_ITS ---
Test Reason : CP REPEAT Blood Pressure : / mmHG Vent. Rate : 064 BPM Atrial Rate : 064 BPM P-R Int : 140 ms QRS Dur : 064 ms QT Int : 410 ms P-R-T Axes : 052 006 072 degrees QTc Int : 422 ms Normal sinus rhythm Anteroseptal VT, age undetermined, cannot be excluded Confirmed by ESTELLA VERA, KEYSHAWN ([id number]), associate entertainment editor REILLY HIGGINS ([id number]) on 02/05/2021 1:23:36 PM Referred By: MAUREEN Confirmed By:KEYSHAWN SORIA MD
--- NOTE | 2021-02-01 12:27 | RAD_ITS ---
EXAM: XR CHEST, 1 VIEW : 1945 CLINICAL INDICATION: chest pain TECHNIQUE: Frontal view of the chest. This report was created using [id number] report generation technology. COMPARISON: 2020 FINDINGS: LUNGS AND PLEURAL SPACES: Unremarkable. No consolidation or edema. No pneumothorax. No effusion. HEART: Unremarkable. Cardiac silhouette not enlarged. MEDIASTINUM: Central airways and mediastinal contour are unremarkable. BONES/JOINTS: Unremarkable. SOFT TISSUES: Unremarkable. RAD/Chest 1 View (Portable) IMPRESSION: No radiographic evidence of acute cardiopulmonary disease. at 1338 Reported and signed by: Wesly Freitas MD Electronically Signed: Wesly Freitas MD at 13:37 EDT Tel , Service support ,
[2021-02-01] MEDS: Ondansetron 4 MG/2 ML Vial IV (12:31)
[2021-02-01] MEDS: Morphine 4 MG/ML Syringe 2 MG IV (12:31)
--- NOTE | 2021-02-01 12:57 | EKG12_ITS ---
Test Reason : CP Blood Pressure : / mmHG Vent. Rate : 079 BPM Atrial Rate : 079 BPM P-R Int : 138 ms QRS Dur : 066 ms QT Int : 372 ms P-R-T Axes : 052 -09 076 degrees QTc Int : 426 ms Normal sinus rhythm Anteroseptal MA, age undetermined, cannot be excluded Confirmed by ESTELLA VERA, KEYSHAWN ([id number]), communications editor REILLY HIGGINS ([id number]) on 02/05/2021 1:24:11 PM Referred By: XENA Confirmed By:KEYSHAWN SORIA MD
[2021-02-01] MEDS: Nitroglycerin SL (ED/IMG/CATH) 0.4 MG TABLET SL (13:01)
[2021-02-01 13:04] LABS: Absolute Lymphocyte Count 2.26 X10^3/uL (0.83-4.51); Absolute Neutrophil Count 6.1 X10^3/uL (2.0-7.7); Basophil# 0.07 X10^3/uL; Basophil% 0.7 % (0-1); Eosinophil# 0.04 X10^3/uL; Eosinophils% 0.4 % (0-5); Hematocrit 35.2 % (37-47); Hemoglobin 11.4 g/dL (12.0-15.0); Lymphocyte # 2.26 X10^3/ul (0.83-4.51); Lymphocyte % 23.4 % (19-41); Mean Corp Hgb Conc 32.4 g/dL (32-36); Mean Corpuscular Hgb 28.6 pg (27.0-32.0); Mean Corpuscular Volume 88.2 fL (81-99); Mean Platelet Vol. 9.9 fl (6.2-12.0); Monocyte# 1.14 X10^3/uL; Monocyte% 11.8 % (0-10); NRBC Flagged by Analyzer 0 % (0-5); Neutrophil % 63.3 % (47-70); Platelet Count 336 K/mm3 (150-450); RBC Distribution Width CV 13.1 % (11.6-14.6); RBC Distribution Width SD 42.5 fl (35.1-43.9); Red Blood Count 3.99 M/mm3 (4.2-5.4); White Blood Count 9.7 K/mm3 (4.4-11.0)
[2021-02-01 13:21] LABS: Anion Gap 6 (5-15); BUN 12 mg/dL (7-18); BUN/Creat Ratio 16.7 RATIO (10-20); Calcium,Total 8.9 mg/dL (8.5-10.1); Chloride 98 mmol/L (98-107); Creatinine, Serum 0.72 mg/dL (0.55-1.02); EST Glomerular Filtration Rate 84 mL/min (>60); Est Glom Filt Rate - Afr Amer 102 mL/min (>60); Glucose 90 mg/dL (74-106); Potassium 5.5 mmol/L (3.5-5.1); Sodium Level 126 mmol/L (136-145); Troponin-I HS 6.5 pg/mL (3.0-53.7)
[2021-02-01] MEDS: 0.9% Normal Saline 1,000 ML 150 ML IV (14:28)
--- NOTE | 2021-02-01 15:20 | EDS_ITS ---
HPI History of Present Illness Chief Complaint: Chest Pain Informant: patient Onset/Context/Timing Onset: Today Timing: Continuous Quality: Positive for Heaviness and Pressure Location: Substernal Current Severity: Mild Maximum Severity: Moderate Associated Symptoms: Positive for Dyspnea Narrative Narrative: Patient presents with chest pressure that started while sitting at rest. She states it moved up to her neck and felt like tightening around her neck. She feels short of breath. She took aspirin and 2 nitro at home. After squad arrived and she got in the ambulance she stated she started to feel better. She still reports shortness of breath on arrival here. Patient had a cardiac cath performed on that revealed 60% hazy stenosis of the proximal OM 1. She also has a long 80% stenosis in the proximal to mid region of the right coronary artery and a 70% stenosis in the distal vessel. Patient is scheduled to go to [facility] this coming week for FFR and possible rotablation. [facility] Medical History Anemia Anxiety Arthritis Atherosclerosis of coronary artery of [place] heart without angina pectoris Breast cancer Essential hypertension GERD (gastroesophageal reflux disease) Hiatal hernia History of hepatitis A Hyperlipidemia Hypothyroidism IBS (irritable bowel syndrome) Osteoarthritis Osteopenia Home Medications aspirin 81 mg PO DAILY@0800 05/30/20 [History Last Taken 01/26/21] cholecalciferol (vitamin D3) 50 mcg PO DAILY 05/30/20 [History Last Taken 05/30/20] estradiol 1 ea VAGINAL WE 05/30/20 [History Last Taken 05/28/20] levothyroxine 25 mcg PO DAILY 05/30/20 [History Last Taken 01/26/21] nitroglycerin 0.4 mg SUBLINGUAL Q5M PRN 05/30/20 [History Last Taken Unknown] rosuvastatin 20 mg PO QHS 05/30/20 [History Last Taken 05/29/20] cranberry 400 mg capsule 800 mg PO DAILY cap 12/22/20 [History Last Taken Unknown] estradiol 0.5 mg tablet 0.5 mg PO QHS tab 12/22/20 [History Last Taken Unknown] flaxseed oil 1,000 mg capsule 1,000 mg PO BID 12/22/20 [History Last Taken Unknown] Bacillus coagulans 10 billion cell capsule,delayed release 10 cell PO DAILY cap 12/24/20 [History Last Taken Unknown] amlodipine 2.5 mg tablet 2.5 mg PO QHS 01/14/21 [History Last Taken Unknown] lisinopril 10 mg tablet 15 mg PO DAILY #90 tab 01/14/21 [Rx Last Taken 01/26/21] Allergy/AdvReac Type Severity Reaction Status Date / Time lactose AdvReac Upset Verified 02/01/21 12:14 Stomach Penicillins AdvReac Hives Verified 02/01/21 12:14 Family History Sister Breast cancer Grandmother Breast cancer Father CVA (cerebral vascular accident) Myocardial infarction Mother Parkinson's disease Brother Seizures Surgical History H/O coronary artery bypass surgery (06/16/99) History of bilateral breast implants History of bilateral mastectomy History of bunionectomy History of cataract surgery History of cholecystectomy History of coronary artery stent placement History of hammer toe correction History of hysterectomy History of left heart catheterization (01/26/21) History of right knee surgery History of shoulder surgery Social History Smoking Status: Never smoker alcohol intake: never substance use type: does not use ROS ROS ED Constitutional Constitutional ED: Denies chills or fever(s) Eyes Eyes: Denies change in vision ENT ENT ED: Reports other Details: Throat tightness ; Denies sore throat Cardiovascular Cardiovascular: Reports chest pain Respiratory/Chest Respiratory/Chest: Reports dyspnea; Denies cough Gastrointestinal Gastrointestinal: Denies abdominal pain, diarrhea, nausea or vomiting Genitourinary Genitourinary ED: Denies dysuria Musculoskeletal Musculoskeletal: Denies back pain Integumentary Denies rash Neurologic Neurologic: Denies headache(s) or weakness Psychiatric Psychiatric: Denies anxiety or depression Endocrine Endocrinology: Denies polydipsia or polyuria Allergic/Immunologic Allergic/Immunologic ED: Denies urticaria EXAM Physical Exam Const Vital Signs: 02/01/21 12:08 02/01/21 12:32 02/01/21 13:01 Temperature 98.1 F Temperature Source Oral Pulse Rate 86 67 Respiratory Rate 18 Respiratory Effort Normal Non-Labored Blood Pressure 166/92 H 167/67 H Blood Pressure Mean 116 Pulse Ox 95 Oxygen Delivery Method Room Air Room Air Oxygen Flow Rate (L/min) 02/01/21 13:40 02/01/21 15:00 02/01/21 16:37 Temperature Temperature Source Pulse Rate 53 L 65 61 Respiratory Rate 12 17 12 Respiratory Effort Blood Pressure 124/98 H 162/66 H 156/72 H Blood Pressure Mean 106 98 100 Pulse Ox 100 100 98 Oxygen Delivery Method Nasal Cannula Nasal Cannula Room Air Oxygen Flow Rate (L/min) 2 2 02/01/21 17:28 02/01/21 18:49 02/01/21 19:29 Temperature Temperature Source Pulse Rate 60 62 69 Respiratory Rate 12 16 Respiratory Effort Blood Pressure 162/72 H 160/70 H 164/80 H Blood Pressure Mean 102 100 108 Pulse Ox 98 Oxygen Delivery Method Room Air Oxygen Flow Rate (L/min) Positive well nourished and well developed General Appearance ED: well developed HEENT Reports normocephalic and head/scalp atraumatic Eyes PERRL and EOMs intact bilaterally Neck supple Chest Wall inspection of chest normal and palpation of chest normal Resp normal respiratory effort and clear to auscultation bilaterally Cardio regular rate and regular rhythm GI normal to inspection, nondistended, normoactive bowel sounds and soft to palpation Palpation: soft Extremity normal to inspection Neuro oriented x3 and no sensory deficits noted Sensorium / Orientation: alert Motor Exam: strength 5/5 throughout Psych mental status grossly normal Skin no rashes or lesions noted Heart Score History: Moderately Suspicious ECG: Normal Age: >/= 65 years Risk Factors: >/= 3 Risk Factors or History of CAD Troponin: </= Normal Limit Score: 5 MDM MDM MDM Narrative Medical decision making narrative: Patient had been given aspirin and nitro prior to arrival. She was given a small dose of morphine here. EKG and labs along with chest x-ray are ordered. Lab Data Attestation: I reviewed the patient's lab results. Labs: Laboratory Results - last 24 hr 02/01/21 02/01/21 02/01/21 12:10 12:10 18:48 WBC 9.7 RBC 3.99 L Hgb 11.4 L Hct 35.2 L MCV 88.2 MCH 28.6 MCHC 32.4 RDW Std Deviation 42.5 RDW Coeff of Ni[place] 13.1 Plt Count 336 MPV 9.9 Immature Gran % (Auto) 0.400 Neut % (Auto) 63.3 Lymph % (Auto) 23.4 [place] % (Auto) 11.8 H Eos % (Auto) 0.4 Baso % (Auto) 0.7 Absolute Neuts (auto) 6.1 Absolute Lymphs (auto) 2.26 Nucleated RBC % 0 Sodium 126 L Potassium 5.5 H Chloride 98 Carbon Dioxide 22.0 Anion Gap 6 BUN 12 Creatinine 0.72 Estim Creat Clear Calc 37.10 Est GFR (MDRD) Af Amer 102 Est GFR (MDRD) Non-Af 84 BUN/Creatinine Ratio 16.7 Glucose 90 Calcium 8.9 Troponin I High Sens 6.5 12.3 Radiography Chest X-Ray - ED: 1 View, Read by ED Physician and Chronic Changes Diagnostic Testing: Radiology Impression Chest X-Ray 02/01/21 12:27 IMPRESSION: No radiographic evidence of acute cardiopulmonary disease. at 1338 Reported and signed by: Wesly Freitas MD Electronically Signed: Wesly Freitas MD at 13:37 EDT Tel , Service support , EKG Initial EKG: Attestation: I personally reviewed and interpreted this EKG as follows: Interpretation: Sinus Rhythm (Sinus at 79 with no acute ischemia.) Follow-up EKG: Attestation: I personally reviewed and interpreted this EKG as follows: Interpretation: Sinus Rhythm (Sinus at 64 with no acute ischemia.) Treatment and Re-Evaluation Comments:: Patient reported increased epigastric pain after receiving 2 mg of morphine. Dose of nitro was given and repeat EKG was obtained. This was unremarkable. Labs at this time are normal with no elevation in troponin. Chest x-ray reveals chronic changes only. I did speak Dr. Hassan who did agree with transfer to [facility] as she is scheduled to have procedure this week for her heart. We called [facility] but they have no beds available. Patient was discussed with transfer center at [facility] and accepted to their facility. Addendum: At 17:37 I was advised by nursing staff that the patient was going to sign out AMA. Was back to the patient's room. At this time she is advising that she does not want to wait in this emergency room or any strange hospital. She wants to sleep at home. I advised her that if she is at home and has a coronary event she becomes unresponsive no one will find her until the next morning. If she is here we can treat her. She voices understanding and agreement. She is willing to sign out AGAINST MEDICAL ADVICE. I made very clear to her that she has very significant cardiac disease and is now having chest pain. I did recommend transfer for definitive care. She understands that by leaving she could have cardiac arrest and . Daughter is present in the room for the discussion. Addendum: When nursing staff took AMA paperwork in for the patient to sign, she now states that she does not want to of a heart attack and refuses to sign the AMA form. She now states that she does want to be transferred to [facility] for further treatment. Staff did call back to [facility] to have her placed back on the list for a bed. Discharge Plan Triage Chief Complaint: Chest Pain ED Provider: Rina Krueger Dx/Rx/DC Orders Clinical Impression: Chest pain Instructions: Unstable Angina Prescriptions: No Action cranberry 400 mg capsule 800 mg PO DAILY RF: 0 estradiol 0.5 mg tablet 0.5 mg PO QHS RF: 0 flaxseed oil 1,000 mg capsule 1,000 mg PO BID RF: 0 Probiotic (B. coagulans) 10 billion cell capsule,delayed release(DR/EC) 10 cell PO DAILY RF: 0 levothyroxine 25 MCG tablet 25 mcg PO DAILY RF: 0 nitroglycerin 0.4 MG tablet, sublingual 0.4 mg sublingual Q5M PRN (Reason: chest pain) RF: 0 aspirin 81 MG tablet,chewable 81 mg PO DAILY@0800 RF: 0 estradiol 42.5 GM cream 1 ea VAGINAL WE RF: 0 rosuvastatin 20 MG tablet 20 mg PO QHS RF: 0 cholecalciferol (vitamin D3) 50 MCG capsule 50 mcg PO DAILY RF: 0 amlodipine 2.5 mg tablet 2.5 mg PO QHS RF: 0 lisinopril 10 mg tablet 15 mg PO DAILY Qty: 90 RF: 3 Primary Care Provider: Adela Harley Referrals: Adela Harley MD [Primary Care Provider] - Disposition Disposition: Acute Care Hospital Discharge Location: [facility] Discharge Date/Time: 02/01/21 19:30
[2021-02-01 19:16] LABS: Troponin-I HS 12.3 pg/mL (3.0-53.7)
== END 2021-02-01 19:30 | disposition short-term general hospital (02) ==
PROVIDERS: Emergency Provider Emergency Medicine; PCP Family Medicine
DX: R07.9 Chest pain, unspecified (principal); R06.00 Dyspnea, unspecified; I25.10 Atherosclerotic heart disease of native coronary artery without angina pectoris; I10 Essential (primary) hypertension; E03.9 Hypothyroidism, unspecified; E78.5 Hyperlipidemia, unspecified; K58.9 Irritable bowel syndrome, unspecified; M19.90 Unspecified osteoarthritis, unspecified site; M85.80 Other specified disorders of bone density and structure, unspecified site; K21.9 Gastro-esophageal reflux disease without esophagitis; F41.9 Anxiety disorder, unspecified; Z79.82 Long term (current) use of aspirin; Z79.890 Hormone replacement therapy; Z79.899 Other long term (current) drug therapy; Z85.3 Personal history of malignant neoplasm of breast; Z90.13 Acquired absence of bilateral breasts and nipples; Z95.5 Presence of coronary angioplasty implant and graft
CPT/HCPCS: 36415; 71045; 80048; 84484; 85025; 93005; 96361; 96374; 96375; 99285; J7030; A4216; J2405

== ENCOUNTER → 2021-03-05 09:23 | Outpatient (CLI) | payer MEDICARE, SELFPAY ==
--- NOTE | 2021-03-05 09:31 | PCM.CR.ITP ---
Diagnosis - General Information Admitting Diagnosis: PCI w/coronary stenting Secondary Diagnosis: I25.10, Z95.1, I10, E78.5, C50.917 Personal Learning Style:: Audio/Visual Barriers to Learning: Vision Impairment Stage of change r/t lifestyle modifications:: Action Gave educational material for:: Treating Heart Disease, Emotions & Heart Disease, Stress Management & Relaxation, Sleep Disorders & Heart Disease, How The Heart Works, What it means to have Heart Disease, How Coronary Artery Disease is Diagnosed, Heart Procedures, What Heart Medications Do, Risk Factors & Modifications, Living an Active Life, Nutrition - Education/Goals Individual Counseling: Initial Assessment: Abnormal Cholesterol Levels, High Blood Pressure Cardiac Rehabilitation Goals: 1. Maintain the individual as the primary focus of care. 2. To improve the patient's quality of life. 3. Identification of cardiac risk factors and provide cardiac risk factor management. 4. Enhance the psychosocial status of the patient. 5. Reconditioning enough to allow the patient to resume customary activities. 6. Control symptoms of cardiac disease Personal Goals: Initial Assessment: Improve energy level, Participate in home exercise program, Get back to work, or to resume activities faster, Improve muscle strength and endurance, Improve diet and eating habits (eat healthier), Control risk factors (learn risk factor modification) Scale for measuring improvement of personal goals: Enter appropriate number in Comments. 2 = Unchanged. 3 = Slightly Better. 4 = Moderate Improvement. 5 = Met my Goal - Diagnosis & Disease Process Outcomes/Goals: Pt IDs own risk factors & lifestyle modifications by Session 10, Verbalizes symptoms of angina & response by session 3., Pt independently manages Plan/Interventions: Assist Pt to ID & engage in lifestyle modification to reduce CVD risk, Instruct on individual risk factors, Review symptoms of angina & emergency actions, Review secondary diagnosis & identify educational needs. - Safety Referral to Physical Therapy: No Referral to [facility] Case Management: No Fall Risk Assessed:: Yes Assistive Devices:: None Exercise - Initial Assessment - Visit Date of Eval: 03/05/21 Session #:: 0 - Pre-cardiac rehab evaluation - Physician Prescribed Exercise Modalities: Treadmill, Rower, Airdyne, NuStep Frequency: 3x/week for 12 weeks [36 sessions] Intensity: 60-80% of age predicted maximum heart rate reserve Current METSs:: 3.0 Target Heart Rate:: 95-122 Resting Blood Pressure: 118/68 EKG Type: Sinus bradycardia - Outcomes & Goals Goals:: Verbalizes understanding of THR, RPE & goal METS by session 6, Documents in home exercise log/reports 30 min aerobic 5 day/wk by DC, Demonstrates accurate pulse taking by DC - Intervention & Plan Exercise Program Goals: Instruct on personal THR & RPE, Instruct on MET level & personal MET goal, Show patient to take own pulse /validate performance until accurate, Instruct on home exercise - Physical Activity Home Exercise Physical Activity - Home Exercise: Safe Exercise, Warm-up, Self-monitoring, Cool-Down, Home Exercise > 30 min Daily, Sitting Time <3 hours/daily - Outcomes & Goals Outcomes/Goals: Demonstrates correct Warm-up/exercise Cool-Down (S3) if = 2.5 METs, Verbalizes symptoms of exercise intolerance by Session 3 (S3), Demonstrate safe equipment use (S3) & follows exercise prescrition (6) - Intervention & Plan Plan/Intervention: Instruct warm-up & cool-down if exercising at > 2 METs, Instruct on symptoms of exercise intolerance & actions to take, Instruct & monitor on saf, Assess intial functional capacity & safety risk Nutrition - Initial Assessment - Program Goals Nutrition Program Goals: LDL <100 optimal. 100 - 129 Near optimal. 130 - 159 Borderline High. 160 - 189 High. Total Cholesterol <200 desirable. 200 - 239 Borderline High. >/= 240 High. HDL < 40 Low >/=60 High. Triglycerides <150 desirable. <199 optimal. VlDL 5 - 40. HgbA1C <7%. BMI <25 Patient has diagnosis of Hyperlipidemia (ICD E78)?: Yes - Visit Date of Assessment:: 03/05/21 Session #:: 0 - Cholesterol/Lipids Triglycerides (mg/dL): 125 - 08/18/2020 Total Cholesterol (mg/dL): 146 LDL Cholesterol (mg/dL): 56 HDL Cholesterol (mg/dL): 65 Determine presence & major risk factors that modify LDL goal: Hypertension or hypertensive medication, Family history of premature CHD in Male < 55 years: female <65 yearsFa, Age men > 45 years; women >/= 55 years Outcomes/Goals: Pt IDs own risk factors & lifestyle modifications by Session 10, Verbalizes symptoms of angina & response by session 3., Pt independently manages Intervention/Plan: Instruct on personal lipid levels & lipid goals/NCEP guidelines, Instruct on cholesterol Referral to dietitian:: Yes - Medical Nutrition Therapy - Diabetes (Other Core Measures) Diabetes Type: Not Applicable - Weight Mgt (Other Care) Not Applicable: No Height: 5 ft Weight:: 95 lb - Suspected risk for malnutrition BMI: 18.5 Diagnosis Overweight/Obesity BMI> 30% ICD-10 E66: No Diagnosis High BMI/Morbid Obesity BMI> 35% ICD-10 Z68: No Outcomes/Goals: Pt sets, maintains & shows weight loss goal & trend during rehab Intervention/Plan: Instruct on ideal BMI & set weight loss goal w/patient - Healthy Eating Habits Will attend diet classes:: Yes Outcomes/Goals:: Consume diet rich in vegs,fruits,whole grain/high fiber,fish,lean meat, Limit sat/trans fats,cholesterol & added salts & sugars Intervention/Plan:: Assess current eating habits - Education Gave educational materials for:: Healthy eating Nutrition - 30-Day Assessment Nutrition - 60-Day Assessment Nutrition - 90-Day Assessment Nutrition - Final Assessment Medical - Initial Assessment - Visit Date of Eval: 03/05/21 Session #:: 0 - Pre-cardiac rehab evaluation - Medication Compliance Preventative Medication(s):: Aspirin, Ticagrelor/P2Y12 inhibitor, Statin/lipid H/O mental health issues: depression, anxiety, or addiction?: No Doesn?t believe in the benefits of treatment?: No Believes medications are unnecessary or harmful?: No Has a concern about medication side effects?: No Expresses concern over the cost of medications?: No Outcomes/Goals: Verbalizes medications,desired effect & common side effects @ DC, Pt self-reports following medication regimen, Keeps card in wallet w/medications listed by DC Interventions/plans: Instruct on medication effects & side effects, Review medication list w/patient every two weeks, Instruct importance of taking meds as ordered & assist problem solving - Tobacco Use Tobacco Use: Non-smoker - Hypertension Hypertension Diagnosis:: Hypertension ICD-10 I10 Resting Blood Pressure:: 118/68 [place] [employer] Hypertension Guidelines: [place] [employer] Hypertension Guidelines. Normal BP Less than 120/80. Elevated BP 120/80. Hypertension Stage 1: BP 130-139/80-89. Hypertesnion Stage 2: BP 140 or higher/90 or higher. Hypertension Crisis: BP higher than 180/120 Outcomes/Goals: Able to verbalize/achieve optimal blood pressure <130/80, Incorporates diet changes & exercise for blood pressure control by DC Interventions/plan: Instruct on optimal blood pressure, hypertension & medications, Instruct on effects of sodium, alcohol, stress, exercise &hypertension - Tobacco Cessation Referral Smoking Cessation Referral:: No Individual Education/Counseling:: No Education Schedule Given:: Yes Medical- 30-Day Assessment Medical- 60-Day Assessment Medical- 90-Day Assessment Medical - Final Assessment Psychosocial - Initial Assess - VIsit Date of Eval: 03/05/21 Session #:: 0 - Pre-cardiac rehab evaluation Not Applicable: Yes History of previous Mental disease:: No - Psychosocial Test Tool Used:: [employer] [place] QOL Cardiac, PHQ-9 Questionnaire phq-9 Severity: Severity. 1-4 Minimal Depression. 5-9 Mild Depression. 10-14 Moderate Depression. 15-19 Moderately Sever Depression. 20-27 Severe Depression. Rule: - Referral to Behavioral Health PS - Interventions: Yes Attend Stress Management Classes, No Referral to Behavioral Health if PHQ-9 score >9:, No [facility], No Referral to Physician if PHQ-9 if score is 5-9: - Outcomes/Goals: See list Psychosocial Outcomes/Goals:: ID's personal stressors & 2 strategies to manage stress by discharge - Intervention/Plan: See List Interventions/Plan:: Assess stressors,coping strategies & signs of derpression on admission, Instruct/assist pt to develop coping & personal stress Mgt strategies, Instruct patient to recognize signs & symptoms of depression, Instruct patient to recog Psychosocial - 30-Day Assess Psychosocial - 60-Day Assess Psychosocial - 90-Day Assess Psychosocial - Final Assessmen Patient Health Questionnaire Initial Assessment 1. Little interest or pleasure in doing things: Not at all 2. Feeling down, depressed, or hopeless: Several days 3. Trouble falling or staying asleep, or sleeping too much: Several days 4. Feeling tired or having little energy: Several days 5. Poor appetite or overeating: Several days 6. Feeling bad about yourself -- or that you are a failure or have let yourself or your family down: Not at all 7. Trouble concentrating on things, such as reading the newspaper or watching television: Not at all 8. Moving or speaking so slowly that other people could have noticed. Or the opposite - being so fidgety or restless that you have been moving around a lot more than usual: Several days Total Score: 5 RAJANI-Q SV Test - Statements CAD is a disease of the arteries in the heart: False Examples of risk factors for heart disease: True Angina is chest pain or discomfort: True The benefits of resistance training include: True Eating more meat and dairy products: False Anti-platelet medications such as aspirin are important: True The only effective way to manage stress: False An exercise warm-up slowly increases heart rate: True Prepared, processed foods usually have high sodium: True Depression is common after a heart attack: True The statin medications lower cholesterol: True To control blood pressure, lower the amount of sodium: True If someone gets chest discomfort during walking: False Transfats are partially hydrogenated vegetable oils: True Sleep apnea that is not treated increases the risk: I Don't Know To control cholesterol, one should become a vegetarian: False Someone knows if he/she is exercising at the right level: True Diabetes cannot be prevented with exercise & health eating: False Stress is a large risk for heart attack: True A diet that can help lower blood pressure is rich in: True - Total Score Total Correct Responses: 19 Self-Efficacy Initial Assessment We would like to know how confident you are in doing certain activities. Please select your confidence level for:: Select your confidence level for the following using the scale 1-10 where 1 is not at all confident and 10 is totally confident. Your score is the average of all 6 responses. Fatigue: How confident are you that you can keep the fatigue caused by your disease from interfering with the things you want to do? Select Number: 5 Physical Discomfort or Pain: How confident are you that you can keep the physical discomfort or pain of your disease from interfering with the things you want to do? Select Number: 5 Emotional Distress: How confident are you that you can keep the emotional distress caused by your disease from interfering with the things you want to do? Select Number: 5 Other Symptoms or Health Problems: How confident are you that you can keep other symptoms or health problems from interfering with the things you want to do? Select Number: 5 Different Tasks and Activities: How confident are you that you can do the different tasks and activities needed to manage your health condition so as to reduce your need to see a doctor? Select Number: 6 Medication: How confident are you that you can do things other than just taking medication to reduce how much your illness affects your everyday life? Select Number: 6 Total Score:: 5 Nutrition Survey - Nutrition Survey Initial Have you lost >10 lbs over the past 2 months without trying?: No Are you following a special diet at home for diabetes, low fat, or low salt?: No Are you interested in meeting with a dietitian for help understanding your diet?: Yes Do you eat less than 3 meals a day?: No Do you eat fatty meats (daigle, sausage, ribs, etc), fried foods, desserts, large amounts of salad dressings, margarine, butter, or cheese most days?: No Do you have food allergies? [Enter types in comment field]: Yes Do you eat in restaurants more than 3 times a week?: No Do you season food with salt, seasoning salt, or garlic salt?: No Do you used canned, boxed, frozen meals, or soups, seasoning packets?: No Total Score:: 2
--- NOTE | 2021-03-05 09:32 | PCM.CR.HP2 ---
CR - History & Physical - General Arrival date:: 03/05/21 Arrival time:: 09:30 Date of Referral:: 02/04/21 Date of CR Evaluation:: 03/05/21 Referring Physician: Dr.. Josesito Valenzuela [facility] Primary Diagnosis: PCI w/coronary stenting - History of Present Cardiac Event Onset Date: Enter Onset Date of cardiac illnesses in Comment field below Coronary Artery Bypass Graft:: Yes - 1998 PTCA or coronary stenting:: Yes - ; wo stetns in addition to rotoblation procedure at [facility] Type of Symptoms:: Previous history of coronary artery disease, unstable angina.Since her previous minimally invasive CABG procedure she has alwasy been alert to the possibility of having future issues. This occurance noticed an increase in fatigue and beginnning symptoms of unstable angina during walking her dog after walking about 2 miles. Interventions with present event:: Stress test, and heart cath, was sent to [facility] for rotoblation procedure. Were there any complications?: None; - Sleep Disorder Evaluation Hx of Sleep Apnea: No Do you snore loudly (louder than talking or can be heard through closed doors)?: No Do you often feel tired/ fatigued/ sleepy during daytime?: No Has anyone observed you stop breathing during sleep?: No History of Hypertension (for STOP score): Yes STOP Results: Negative - Medications Home Medications: Ambulatory Orders Medication Instructions Recorded aspirin 81 mg PO DAILY@0800 05/30/20 cholecalciferol (vitamin D3) 50 mcg PO DAILY 05/30/20 estradiol 1 ea VAGINAL WE 05/30/20 levothyroxine 25 mcg PO DAILY 05/30/20 rosuvastatin 20 mg PO QHS 05/30/20 cranberry 400 mg capsule 800 mg PO DAILY cap 12/22/20 estradiol 0.5 mg tablet 0.5 mg PO QHS tab 12/22/20 flaxseed oil 1,000 mg capsule 1,000 mg PO BID 12/22/20 Bacillus coagulans 10 billion cell 10 cell PO DAILY cap 12/24/20 capsule,delayed release lisinopril 10 mg tablet 15 mg PO DAILY #1 tab 02/05/21 nitroglycerin 0.4 mg sublingual 0.4 mg SUBLINGUAL Q5M PRN #25 tab 02/12/21 tablet ticagrelor 90 mg tablet 90 mg PO BID #60 tab 02/12/21 - Allergies Allergies/Adverse Reactions: Allergies lactose Adverse Reaction (Verified 02/12/21 09:59) Upset Stomach metoprolol Adverse Reaction (Verified 02/12/21 09:59) dizziness Penicillins Adverse Reaction (Verified 02/12/21 09:59) Hives Advanced Directives - Advanced Directives Power of Academic Vice President: Yes Living Will: Yes Advance Directives Information Provided: No Advance Directives on File: No DNR Order?:: No - MOLST See MOLST form: No Past Medical History - Covid-19 Screening Fever: No Unexplained muscle aches: No Current respiratory symptoms: No Upper respiratory infections symptoms: No Gastro-intestinal symptoms: Yes - History of GERD Agn-Wsfr-Rmglec symptoms: No Has tested positive for COVID-19 in last 30 days: No Date of testin09/02/20 - Had Moderna vaccine fully vaccinated. Had contact w/person w/symptoms or Covid-19 (+) last 14 days: No 65 years or older:: Yes Lives in Assisted Living facility:: No Has a chronic lung disease or moderate to severe asthma:: No Has a serious heart condition:: Yes Immunocompromised:: Yes Severely obese (Body Mass Index of 40 or higher):: No Diabetic:: No Has chronic kidney disease undergoing dialysis:: No Has liver disease:: No - Past Medical Illness Medical History: Past Medical History (Last Reviewed 02/12/21 @ 10:43 by Aicha Mims MODEL AND PATTERN SUPERVISOR, MODEL AND PATTERN SUPERVISOR-C) Anemia D64.9 Anxiety F41.9 Arthritis M19.90 Atherosclerosis of coronary artery of [place] without angina pectoris I25.10 Breast cancer C50.919 Essential hypertension I10 GERD (gastroesophageal reflux disease) K21.9 Hiatal hernia K44.9 History of hepatitis A Z86.19 Hyperlipidemia E78.5 Hypothyroidism E03.9 IBS (irritable bowel syndrome) K58.9 Osteoarthritis M19.90 Osteopenia M85.80 Unstable angina I20.0 - Past Surgical History Surgical History: Past Surgical History (Last Reviewed 02/12/21 @ 10:43 by Aicha Mims MODEL AND PATTERN SUPERVISOR, MODEL AND PATTERN SUPERVISOR-C) H/O coronary artery bypass surgery Onset Date: 06/16/99 Z95.1 CABG x 1 AUGUSTINE-LAD 06/16/99 History of bilateral breast implants Z98.82 History of bilateral mastectomy Z90.13 History of bunionectomy Z98.890 History of cataract surgery Z98.49 History of cholecystectomy Z90.49 History of coronary artery stent placement Onset Date: 02/03/21 Z95.5 [id number] 1998; IYI-Okzkcawqc-acgrqv and mid RCA w/ CARLENE-distal, mid and proximal RCA; FFR LEFT CIRCUMFLEX: Moderate OM disease with FFR = 0.89 02/03/2021 History of hammer toe correction Z98.890, Z87.39 History of hysterectomy Z90.710 History of left heart catheterization Onset Date: 01/26/21 Z98.890 05/13/99, 06/29/99, 2009, 01/26/21 History of right knee surgery Z98.890 History of shoulder surgery Z98.890 Surgical History: cholecystectomy, coronary bypass surgery, hysterectomy - Family History Summary Family History: Family History (Last Reviewed 02/12/21 @ 10:43 by Aicha Mims MODEL AND PATTERN SUPERVISOR, MODEL AND PATTERN SUPERVISOR-C) Sister Breast cancer Grandmother Breast cancer Father CVA (cerebral vascular accident) Myocardial infarction Mother Parkinson's disease Brother Seizures Social History - Smoking History Smoking Status: Never smoker - Alcohol Use Alcohol Usage: No - Substance Abuse Hx Substance Use: No - Occupation Occupation (List type of work in comments):: Retired - Hobbies, Recreation, Social Activities Hobbies: Sewing - belong to a sewing group, , Other - [employer]ondoism, social in [facility], Recreational Activities: I am able to engage in most, but not all activities Social Environment - Status Marital Status: - Current Living Arrangements Living Environment:: Alone - Children How many children do you have?: 2 - daughters Do any of your children live nearby?: Yes - [place] / [place] - Safety Do you feel safe in your surroundings?: Yes - Assistance Do you need any assistance at home?: no Review of Systems - Review of Systems Hints: Right click = Denies ([place]ash). Left click = Reports ([place]) Review of Present Symptoms: Reports: Shortness of Breath with Exertion, Fatigue - Still lacking the energy and stamina, don't have the chest symptoms but a little disappointed things haven't improved since having the stents., Appetite - Normal - still picking at things, diet is limited due to the GERD, IBS history., Appetite - Special Diet - littele fiber, fresh fruits etc to due to the IBS, Sleep - Normal - insomnia, takes something before bedtime (Tylenol M or melatonin) but also havea hard time in shutting down after lay down in bed.. Denies: Shortness of Breath at Rest, Angina - noticed a big difference as soon as the procedure was done. Didn't have that previous gripping chest pain, Dizziness/Lightheadedness, Heart Arrhythmia/Irregularities - Pain Is Patient Pain Free?: Yes Pain Location: none Pain Level: 0/10 Risk Factor Assessment - Chief Complaint Chief Complaint: Patient is a very pleasant 75-yr female who presents to cardiac rehab today under the referral of Dr. Valenzuela of [facility]. The patient has a history of coronary artery disease, status post coronary artery bypass surgery in 1998. SHe previously has done cardiac rehab before following her CABG at [place], [place]. - Vital Signs Temperature: 97.3 F Respiratory Rate: 16 Pulse Ox: 98 - room air Blood Pressure: 118/68 - Pulse Pulse Rate: 61 Pulse Rhythm: Regular - Hypertension Blood Pressure Sitting - Left Arm: 118/68 - Blood Cholesterol/Lipids Total Cholesterol (mg/dL) Goal = less than 200 mg/dL: 146 HDL Cholesterol (mg/dL) Goal = less than 40 mg/dL: 65 LDL Cholesterol (mg/dL) Goal = less than 70 mg/dL: 56 Triglycerides (mg/dL) Goal = less than 150 mg/dL: 125 - Obesity Height: 5 ft Weight:: 95 lb - suspected risk of malnutrition Weight in Pounds: 95.0 lbs Weight Source: Standing Scale Body Mass Index (BMI): 18.5 - Risk Stratification Risk Guidelines: Lowest Risk: Risk Factor for Smoking, Risk Factor for Dyslipidemia, Risk Factor for Diabetes, Risk Factor for Obesity, Risk Factor for Hypertension, Risk Factor for Depression - Family History Family History: Family History (Last Reviewed 02/12/21 @ 10:43 by Aicha Mims NP, MODEL AND PATTERN SUPERVISOR-C) Sister Breast cancer Grandmother Breast cancer Father CVA (cerebral vascular accident) Myocardial infarction Mother Parkinson's disease Brother Seizures Motivation - Motivation to Participate On a scale of 1 to 10, how prepared are you to commit to attending program?: 8 - my mind is 10 but my body may not meet my expectations. What do you see as barriers to successfully being able to complete the program?: lack of the energy and loss of stamina, a little disppointed now What do you see as the benefits of succesfully completing the program? In other words, what do you hope to get out of participating in the program?: not to be a burden, get my energy back, walking up to 30 minutes min. Are there issues you are dealing with that will interfere with completing the program?: none Do you have a spouse or signficant other, family or friends who will help support you to complete the program?: Yes, two daughters and a sister
[2021-03-05 10:23] VITALS: BP 118/68; PULSE 61; RESP 16; TEMP 36.3; O2SAT 98; BMI 18.5
[2021-03-05 11:09] VITALS: BP 118/68; BMI 18.5
== END ==
PROVIDERS: PCP Family Medicine; Referring Provider Internal Medicine Cardiovascular Disease; Visit Provider Internal Medicine Cardiovascular Disease
DX: K21.9 Gastro-esophageal reflux disease without esophagitis (principal); E78.5 Hyperlipidemia, unspecified; I10 Essential (primary) hypertension; Z68.1 Body mass index [BMI] 19.9 or less, adult

== ENCOUNTER → 2021-03-17 08:03 | Outpatient (CLI) | payer MEDICARE, SELFPAY ==
[2021-03-05 11:09] VITALS: BMI 18.5
[2021-03-17 10:05] LABS: Absolute Lymphocyte Count 0.98 X10^3/uL (0.83-4.51); Absolute Neutrophil Count 6.3 X10^3/uL (2.0-7.7); Basophil# 0.07 X10^3/uL; Basophil% 0.8 % (0-1); Eosinophil# 0.02 X10^3/uL; Eosinophils% 0.2 % (0-5); Hematocrit 37.1 % (37-47); Hemoglobin 12.1 g/dL (12.0-15.0); Lymphocyte # 0.98 X10^3/ul (0.83-4.51); Lymphocyte % 11.5 % (19-41); Mean Corp Hgb Conc 32.6 g/dL (32-36); Mean Corpuscular Hgb 28.8 pg (27.0-32.0); Mean Corpuscular Volume 88.3 fL (81-99); Mean Platelet Vol. 9.8 fl (6.2-12.0); Monocyte# 1.05 X10^3/uL; Monocyte% 12.4 % (0-10); NRBC Flagged by Analyzer 0 % (0-5); Neutrophil # 6.34 X10^3/uL (2.7-7.7); Neutrophil % 74.7 % (47-70); Platelet Count 308 K/mm3 (150-450); RBC Distribution Width SD 42.2 fl (35.1-43.9); White Blood Count 8.5 K/mm3 (4.4-11.0)
[2021-03-17 10:29] LABS: Anion Gap 7 (5-15); BUN 13 mg/dL (7-18); BUN/Creat Ratio 17.2 RATIO (10-20); Calcium,Total 9.1 mg/dL (8.5-10.1); Chloride 96 mmol/L (98-107); Cholesterol 127 mg/dL (200); Creatinine, Serum 0.76 mg/dL (0.55-1.02); EST Glomerular Filtration Rate 79 mL/min (>60); Est Glom Filt Rate - Afr Amer 96 mL/min (>60); Glucose 90 mg/dL (74-106); High Density Lipoprotein 67 mg/dL; Potassium 4.2 mmol/L (3.5-5.1); Sodium Level 130 mmol/L (136-145); Triglycerides 126 mg/dL; Very Low Density Lipoprotein 25 mg/dL (5-40)
== END ==
PROVIDERS: PCP Family Medicine; Referring Provider Family Medicine; Visit Provider Family Medicine
DX: I25.10 Atherosclerotic heart disease of native coronary artery without angina pectoris (principal); D64.9 Anemia, unspecified; E87.1 Hypo-osmolality and hyponatremia
CPT/HCPCS: 36415; 80048; 80061; 85025

== ENCOUNTER 2021-03-30 09:30 | Outpatient (RCR) | payer MEDICARE, SELFPAY ==
[2021-03-05 11:09] VITALS: BMI 18.5
== END 2021-04-02 23:59 ==
LOC: CR 09:30
PROVIDERS: PCP Family Medicine; Referring Provider Internal Medicine Cardiovascular Disease; Visit Provider Internal Medicine Cardiovascular Disease
DX: I25.10 Atherosclerotic heart disease of native coronary artery without angina pectoris (principal); I10 Essential (primary) hypertension; E78.5 Hyperlipidemia, unspecified; C50.919 Malignant neoplasm of unspecified site of unspecified female breast; Z95.1 Presence of aortocoronary bypass graft; Z95.5 Presence of coronary angioplasty implant and graft
CPT/HCPCS: 93798

== ENCOUNTER 2021-04-20 09:30 | Outpatient (RCR) | payer MEDICARE, SELFPAY ==
[2021-03-05 11:09] VITALS: BMI 18.5
== END 2021-05-03 23:59 ==
LOC: CR 09:30
PROVIDERS: PCP Family Medicine; Referring Provider Internal Medicine Cardiovascular Disease; Visit Provider Internal Medicine Cardiovascular Disease
DX: I25.10 Atherosclerotic heart disease of native coronary artery without angina pectoris (principal); I10 Essential (primary) hypertension; E78.5 Hyperlipidemia, unspecified; C50.919 Malignant neoplasm of unspecified site of unspecified female breast; Z95.1 Presence of aortocoronary bypass graft; Z95.5 Presence of coronary angioplasty implant and graft
CPT/HCPCS: 93798

== ENCOUNTER 2021-08-19 07:00 | Outpatient (CLI) | payer MEDICARE, SELFPAY ==
[2021-03-05 11:09] VITALS: BMI 18.5
[2021-08-19 07:28] LABS: Absolute Lymphocyte Count 1.02 X10^3/uL (0.83-4.51); Basophil# 0.06 X10^3/uL; Basophil% 0.8 % (0-1); Eosinophil# 0.13 X10^3/uL; Eosinophils% 1.8 % (0-5); Hematocrit 37.6 % (37-47); Hemoglobin 12.7 g/dL (12.0-15.0); Lymphocyte # 1.02 X10^3/ul (0.83-4.51); Lymphocyte % 14.1 % (19-41); Mean Corp Hgb Conc 33.8 g/dL (32-36); Mean Corpuscular Hgb 28.8 pg (27.0-32.0); Mean Corpuscular Volume 85.3 fL (81-99); Mean Platelet Vol. 9.2 fl (6.2-12.0); Monocyte# 0.99 X10^3/uL; Monocyte% 13.7 % (0-10); NRBC Flagged by Analyzer 0 % (0-5); Neutrophil % 69.2 % (47-70); Platelet Count 272 K/mm3 (150-450); RBC Distribution Width CV 13.2 % (11.6-14.6); RBC Distribution Width SD 41.1 fl (35.1-43.9); Red Blood Count 4.41 M/mm3 (4.2-5.4); White Blood Count 7.2 K/mm3 (4.4-11.0)
[2021-08-19 08:05] LABS: AST(SGOT) 27 U/L (15-37); Alanine Aminotransfer ALT/SGPT 25 U/L (13-56); Albumin, Serum 3.9 g/dL (3.2-5.0); Alkaline Phosphatase 59 U/L (45-117); Anion Gap 8 (5-15); BUN 14 mg/dL (7-18); Calcium,Total 8.9 mg/dL (8.5-10.1); Chloride 95 mmol/L (98-107); Cholesterol 139 mg/dL (200); Creatinine, Serum 0.74 mg/dL (0.55-1.02); EST Glomerular Filtration Rate 82 mL/min (>60); Est Glom Filt Rate - Afr Amer 99 mL/min (>60); Globulin 3.9 g/dL (2.2-4.2); Glucose 90 mg/dL (74-106); High Density Lipoprotein 74 mg/dL; Potassium 4.2 mmol/L (3.5-5.1); Protein, Total 7.8 g/dL (6.4-8.2); Sodium Level 129 mmol/L (136-145); Thyroid Stim Hormone (TSH) 4.59 uIU/mL (0.358-3.74); Triglycerides 88 mg/dL; Very Low Density Lipoprotein 18 mg/dL (5-40)
== END 2021-08-19 23:59 | disposition home or self-care (01) ==
LOC: LAB 07:03
PROVIDERS: PCP Family Medicine; Referring Provider Family Medicine; Visit Provider Family Medicine
DX: I25.10 Atherosclerotic heart disease of native coronary artery without angina pectoris (principal); E03.9 Hypothyroidism, unspecified; D64.9 Anemia, unspecified; E87.1 Hypo-osmolality and hyponatremia
CPT/HCPCS: 36415; 80053; 80061; 84443; 85025

== ENCOUNTER 2021-09-11 06:32 | Emergency (ER) | payer MEDICARE, SELFPAY ==
[2021-03-05 11:09] VITALS: BMI 18.5
[2021-09-11 06:33] VITALS: BP 172/70; PULSE 72; RESP 18; TEMP 36.1; O2SAT 98; BMI 18.9
--- NOTE | 2021-09-11 06:53 | RAD_ITS ---
STUDY: X-RAY - RIGHT HAND REASON FOR EXAM: Injury of the right hand from cat bite. TECHNIQUE: 3 view(s) of the hand. COMPARISON: None. FINDINGS: Normal radiocarpal articulation. Normal distal radioulnar joint. Normal visualized carpal bones. Normal carpal articulations Normal carpometacarpal articulation of the thumb. Normal second through fifth carpometacarpal joints. Normal metacarpi. Normal metacarpophalangeal joint of the thumb. Normal interphalangeal joint of the thumb. Normal proximal and distal phalanges of the thumb. There is joint space narrowing of the second and third metacarpophalangeal joints. There is a subchondral cyst of the head of the fifth proximal phalanx at the fifth proximal interphalangeal joint. Normal phalanges of the second through fifth fingers. There is soft tissue swelling at the dorsal aspect of the hand. RAD/Hand Min 3 Views IMPRESSION: Soft tissue swelling. 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 Subchondral cyst in the head of the fifth proximal phalanx. Electronically Signed: Jakob Cano MD at 7:44 EST ,
--- NOTE | 2021-09-11 07:14 | EDS_ITS ---
HPI History of Present Illness Chief Complaint: Wound Informant: patient Narrative Narrative: Luxvi-ebdf-hfxqbefk female presents for wound check to the right hand. She was bit by her cat yesterday morning. She takes aspirin and Plavix for history of coronary disease with stenting. Tetanus was more than 5 years ago. She went to urgent care yesterday was evaluated, she states she was treated with 2 doses of doxycycline and 3 doses of Flagyl. She took her last dose of doxy yesterday and her last dose of Flagyl this morning. She has an allergy to penicillin. her cats immunizations are up-to-date. She states throughout the day there has been bleeding through the bandage. There is redness to her wrist. She denies fevers. [facility] Medical History Anemia Anxiety Arthritis Atherosclerosis of coronary artery of [place] without angina pectoris Breast cancer Essential hypertension GERD (gastroesophageal reflux disease) Hiatal hernia History of hepatitis A Hyperlipidemia Hypothyroidism IBS (irritable bowel syndrome) Osteoarthritis Osteopenia Unstable angina Home Medications aspirin 81 mg PO DAILY@0800 05/30/20 [History Last Taken 01/26/21] cholecalciferol (vitamin D3) 50 mcg PO DAILY 05/30/20 [History Last Taken 05/30/20] estradiol 1 ea VAGINAL WE 05/30/20 [History Last Taken 05/28/20] levothyroxine 25 mcg PO DAILY 05/30/20 [History Last Taken 01/26/21] rosuvastatin 20 mg PO QHS 05/30/20 [History Last Taken 05/29/20] cranberry 400 mg capsule 800 mg PO DAILY cap 12/22/20 [History Last Taken Unknown] estradiol 0.5 mg tablet 0.5 mg PO QHS tab 12/22/20 [History Last Taken Unknown] flaxseed oil 1,000 mg capsule 1,000 mg PO BID 12/22/20 [History Last Taken Unk nown] Bacillus coagulans 10 billion cell capsule,delayed release 10 cell PO DAILY cap 12/24/20 [History Last Taken Unknown] nitroglycerin 0.4 mg sublingual tablet 0.4 mg SUBLINGUAL Q5M PRN #25 tab [Rx Last Taken Unknown] clopidogrel 75 mg tablet 75 mg PO DAILY tab 06/19/21 [History Last Taken Unknown] lisinopril 10 mg tablet 15 mg PO DAILY #135 tab 06/19/21 [Rx Last Taken Unknown] doxycycline monohydrate 100 mg PO BID #14 cap 09/11/21 [Rx Last Taken Unknown] Allergy/AdvReac Type Severity Reaction Status Date / Time lactose AdvReac Upset Verified 09/11/21 06:33 Stomach metoprolol AdvReac dizziness Verified 09/11/21 06:33 Penicillins AdvReac Hives Verified 09/11/21 06:33 Family History Sister Breast cancer Grandmother Breast cancer Father CVA (cerebral vascular accident) Myocardial infarction Mother Parkinson's disease Brother Seizures Surgical History H/O coronary artery bypass surgery (06/16/99) History of bilateral breast implants History of bilateral mastectomy History of bunionectomy History of cataract surgery History of cholecystectomy History of coronary artery stent placement (02/03/21) History of hammer toe correction History of hysterectomy History of left heart catheterization (01/26/21) History of right knee surgery History of shoulder surgery Social History Smoking Status: Never smoker alcohol intake: never substance use type: does not use ROS ROS ED Constitutional Constitutional ED: Denies chills, fever(s) or sweats Eyes Eyes: Denies change in vision ENT ENT ED: Denies dysphagia or sore throat Cardiovascular Cardiovascular: Denies chest pain, leg edema, palpitations or racing heartbeat Respiratory/Chest Respiratory/Chest: Denies cough, dyspnea or dyspnea on exertion Gastrointestinal Gastrointestinal: Denies abdominal pain, diarrhea, nausea or vomiting Genitourinary Genitourinary ED: Denies dysuria, hematuria or urinary frequency Musculoskeletal Musculoskeletal: Denies back pain, extremity pain or neck pain Integumentary Reports rash and other Details: Right hand puncture wound with bleeding ; Denies wounds Neurologic Neurologic: Denies headache(s), paresthesias or weakness EXAM Physical Exam Const Vital Signs: 09/11/21 06:33 Temperature 97.0 F L Temperature Source Temporal Pulse Rate 72 Respiratory Rate 18 Blood Pressure 172/70 H Blood Pressure Mean 104 Pulse Ox 98 Oxygen Delivery Method Room Air Positive well nourished and well developed General Appearance ED: well developed and NAD HEENT Reports moist mucous membranes normocephalic and atraumatic Eyes PERRL, EOMs intact bilaterally and conjunctivae normal General Eye ED: Yes normal appearance of both eyes Neck no lymphadenopathy and supple General: Negative for tenderness Chest Wall Chest: Negative for tenderness Resp normal respiratory effort and normal air movement Effort and Inspection: symmetric chest movement; Negative for respiratory distress Cardio regular rate, regular rhythm and no murmurs Peripheral Pulses: pulses 2+ throughout GI normal to inspection, nondistended, normoactive bowel sounds and non-tender Palpation: Negative for guarding or rebound tenderness present Back/Spine no CVA tenderness and no thoracic nor lumbar tenderness Extremity normal to inspection General Extremety ED: Negative for edema or tenderness General Extremity: Negative for edema Neuro oriented x3 and no sensory deficits noted Sensorium / Orientation: awake and alert Skin Skin Narrative: Right upper extremity: Dorsal hand notes superficial puncture lacerations at the base of the third metacarpal, mild small ooze of bright red blood from the wound. No exudates. There is erythema to the dorsal distal third of the forearm. No induration. No streaking up the arm. MDM MDM MDM Narrative Medical decision making narrative: X-ray right hand 3 views reviewed by myself shows no radiopaque foreign bodies mild soft tissue swelling from the dressing region. No soft tissue gas. Patient continued on her doxycycline for additional 6 days with only 1 day treatment yesterday. The erythema was outlined. Pressure dressing was placed by nursing. Discussed not removing it for 24 hours. Discussed tetanus recommendation with the patient however she states she has significant arm aching from this, therefore she declines this. She understands the risk for tetanus infection. Discussed with patient not trying to glue or seal the wound which will put her at high risk for infections. Return precautions discussed. All questions were answered. Radiography Diagnostic Testing: Clinical Impression(s) from Imaging Studies Hand X-Ray 09/11/21 06:53 IMPRESSION: Soft tissue swelling. 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 Subchondral cyst in the head of the fifth proximal phalanx. Electronically Signed: Jakob Cano MD at 7:44 EST Reading Location ID and State: [facility] / [place] Tel , Service support , Discharge Plan Triage Chief Complaint: Wound ED Provider: Johny Guzman Dx/Rx/DC Orders Clinical Impression: Cat bite of right hand, Cellulitis of hand, right, Puncture wound Instructions: Animal Bites and Scratches, ED Cat Bite Prescriptions: New doxycycline monohydrate 100 MG capsule 100 mg PO BID Qty: 14 RF: 0 No Action cranberry 400 mg capsule 800 mg PO DAILY RF: 0 estradiol 0.5 mg tablet 0.5 mg PO QHS RF: 0 flaxseed oil 1,000 mg capsule 1,000 mg PO BID RF: 0 Probiotic (B. coagulans) 10 billion cell capsule,delayed release(DR/EC) 10 cell PO DAILY RF: 0 clopidogrel [Plavix] 75 mg tablet 75 mg PO DAILY RF: 0 lisinopril 10 mg tablet 15 mg PO DAILY Qty: 135 RF: 3 nitroglycerin 0.4 mg tablet, sublingual 0.4 mg sublingual Q5M PRN (Reason: chest pain) Qty: 25 RF: 1 levothyroxine 25 MCG tablet 25 mcg PO DAILY RF: 0 aspirin 81 MG tablet,chewable 81 mg PO DAILY@0800 RF: 0 estradiol 42.5 GM cream 1 ea VAGINAL WE RF: 0 rosuvastatin 20 MG tablet 20 mg PO QHS RF: 0 cholecalciferol (vitamin D3) 50 MCG capsule 50 mcg PO DAILY RF: 0 Primary Care Provider: Adela Harley Referrals: Adela Harley MD [Primary Care Provider] - 3-5 Days Activity Restrictions/Additional Instructions: X-ray negative. He declined the tetanus vaccination. Keep pressure dressing on for 24 hours then daily dressing changes. Take antibiotic as prescribed. Follow-up with your doctor. Return if any worsening symptoms. Disposition Disposition: Home, Self Care Discharge Date/Time: 09/11/21 08:09
[2021-09-11] MEDS: Doxycycline 100 MG CAPSULE PO (07:49)
== END 2021-09-11 08:09 | disposition home or self-care (01) ==
PROVIDERS: Emergency Provider Emergency Medicine; PCP Family Medicine; Visit Provider Emergency Medicine
DX: S61.431A Puncture wound without foreign body of right hand, initial encounter (principal); L03.113 Cellulitis of right upper limb; W55.01XA Bitten by cat, initial encounter; I25.10 Atherosclerotic heart disease of native coronary artery without angina pectoris; I10 Essential (primary) hypertension; E78.5 Hyperlipidemia, unspecified; E03.9 Hypothyroidism, unspecified; K58.9 Irritable bowel syndrome, unspecified; K21.9 Gastro-esophageal reflux disease without esophagitis; Z79.82 Long term (current) use of aspirin; Z79.02 Long term (current) use of antithrombotics/antiplatelets; Z79.890 Hormone replacement therapy; Z79.899 Other long term (current) drug therapy; Z85.3 Personal history of malignant neoplasm of breast; Z95.5 Presence of coronary angioplasty implant and graft
CPT/HCPCS: 73130; 99281; 99283

== ENCOUNTER → 2022-01-29 | Outpatient (CLI) | payer MEDICARE, SELFPAY ==
[2021-03-05 11:09] VITALS: BMI 18.5
--- NOTE | 2022-01-29 07:13 | MRI_ITS ---
STUDY: MRI LEFT KNEE REASON FOR EXAM: Left knee pain, left knee injury 6 weeks ago. TECHNIQUE: Standardized fat and water weighted pulse sequences were obtained in all 3 orthogonal planes. COMPARISON: Radiographs 01/06/2022. FINDINGS: There is a horizontal tear of the inferior articular surface of the posterior horn of the medial meniscus (proton-density sagittal images 11-16; proton-density coronal images 13, 14). There is mild arthrosis of the medial femorotibial compartment with mild partial-thickness chondral loss of the medial femoral condyle (T2 sagittal image 7). Normal medial femoral condyle and tibial plateau. Normal medial collateral ligamentous complex (MCL). Normal distal semimembranosus, gracilis and semitendinosus tendons. Normal lateral meniscus. There is arthrosis of the lateral femorotibial compartment with chondral thinning of the posterior aspect of the lateral tibial plateau (T2 sagittal image 16). Normal lateral femoral condyle and tibial plateau. Normal proximal tibiofibular articulation. Normal lateral collateral (fibular) ligament. Normal popliteus tendon. Normal biceps femoris tendon. Normal anterior cruciate ligament (ACL). Normal posterior cruciate ligament (PCL). Normal congruent patellofemoral articulation. Normal hyaline cartilage of the patellofemoral compartment. Normal medial and lateral patellar retinaculum. Normal visualized quadriceps tendon. Normal patellar tendon. Normal Hoffa''s fat pad. There is a minimal volume of fluid in the knee joint. There is a popliteal cyst measuring approximately 6.7 cm in length (T2 sagittal images 3-9). The otherwise visualized osseous structures are unremarkable. MRI/Lower Ext Joint Only (Routine) IMPRESSION: Medial meniscal tear. Arthrosis of the lateral femorotibial compartment and mild arthrosis of the medial femorotibial compartment. Popliteal cyst. Electronically Signed: Jakob Cano MD at 9:03 EDT ,
== END | disposition home or self-care (01) ==
PROVIDERS: PCP Family Medicine
DX: M23.92 Unspecified internal derangement of left knee (principal)
CPT/HCPCS: 73721

== ENCOUNTER → 2022-02-18 | Outpatient (CLI) | payer MEDICARE, SELFPAY ==
[2021-03-05 11:09] VITALS: BMI 18.5
[2022-02-18 07:26] LABS: Absolute Lymphocyte Count 1.08 X10^3/uL (0.83-4.51); Absolute Neutrophil Count 6.4 X10^3/uL (2.0-7.7); Basophil# 0.04 X10^3/uL; Basophil% 0.5 % (0-1); Eosinophil# 0.03 X10^3/uL; Eosinophils% 0.4 % (0-5); Hematocrit 36.1 % (37-47); Hemoglobin 12.3 g/dL (12.0-15.0); Lymphocyte # 1.08 X10^3/ul (0.83-4.51); Lymphocyte % 12.7 % (19-41); Mean Corp Hgb Conc 34.1 g/dL (32-36); Mean Corpuscular Hgb 29.7 pg (27.0-32.0); Mean Corpuscular Volume 87.2 fL (81-99); Mean Platelet Vol. 8.8 fl (6.2-12.0); Monocyte# 0.97 X10^3/uL; Monocyte% 11.4 % (0-10); NRBC Flagged by Analyzer 0 % (0-5); Neutrophil # 6.35 X10^3/uL (2.7-7.7); Neutrophil % 74.6 % (47-70); Platelet Count 257 K/mm3 (150-450); RBC Distribution Width CV 13.6 % (11.6-14.6); RBC Distribution Width SD 43.3 fl (35.1-43.9); Red Blood Count 4.14 M/mm3 (4.2-5.4); White Blood Count 8.5 K/mm3 (4.4-11.0)
[2022-02-18 08:05] LABS: AST(SGOT) 27 U/L (15-37); Alanine Aminotransfer ALT/SGPT 25 U/L (13-56); Albumin, Serum 3.7 g/dL (3.2-5.0); Alkaline Phosphatase 49 U/L (45-117); Anion Gap 5 (5-15); BUN 12 mg/dL (7-18); BUN/Creat Ratio 16.6 RATIO (10-20); Chloride 95 mmol/L (98-107); Cholesterol 157 mg/dL (200); Creatinine, Serum 0.72 mg/dL (0.55-1.02); EST Glomerular Filtration Rate 83 mL/min (>60); Est Glom Filt Rate - Afr Amer 101 mL/min (>60); Globulin 3.8 g/dL (2.2-4.2); Glucose 92 mg/dL (74-106); High Density Lipoprotein 80 mg/dL; Potassium 4.3 mmol/L (3.5-5.1); Protein, Total 7.5 g/dL (6.4-8.2); Sodium Level 129 mmol/L (136-145); Triglycerides 76 mg/dL
[2022-02-18 08:06] LABS: Thyroid Stim Hormone (TSH) 5.48 uIU/mL (0.358-3.74); Very Low Density Lipoprotein 15 mg/dL (5-40)
== END | disposition home or self-care (01) ==
LOC: LAB 07:04
PROVIDERS: PCP Family Medicine; Visit Provider Family Medicine
DX: I25.10 Atherosclerotic heart disease of native coronary artery without angina pectoris (principal); E87.1 Hypo-osmolality and hyponatremia; D64.9 Anemia, unspecified; E03.9 Hypothyroidism, unspecified
CPT/HCPCS: 36415; 80053; 80061; 84443; 85025

== ENCOUNTER → 2022-05-19 | Outpatient (CLI) | payer MEDICARE, SELFPAY ==
[2021-03-05 11:09] VITALS: BMI 18.5
[2022-05-19 07:53] LABS: AST(SGOT) 26 U/L (15-37); Alanine Aminotransfer ALT/SGPT 19 U/L (13-56); Alkaline Phosphatase 64 U/L (45-117); Bilirubin, Direct 0.26 mg/dL (0.00-0.30); Cholesterol 180 mg/dL (200); Globulin 4.1 g/dL (2.2-4.2); High Density Lipoprotein 92 mg/dL; Protein, Total 8.1 g/dL (6.4-8.2); T4 Free Direct 1.27 ng/dL (0.76-1.46); Thyroid Stim Hormone (TSH) 3.15 uIU/mL (0.358-3.74); Triglycerides 91 mg/dL; Very Low Density Lipoprotein 18 mg/dL (5-40)
== END | disposition home or self-care (01) ==
LOC: LAB 06:51
PROVIDERS: PCP Family Medicine; Referring Provider Nurse Practitioner Gerontology; Visit Provider Nurse Practitioner Gerontology
DX: E03.9 Hypothyroidism, unspecified (principal)
CPT/HCPCS: 36415; 80061; 80076; 84439; 84443

== ENCOUNTER → 2022-08-02 | Outpatient (CLI) | payer BC, SELFPAY ==
[2021-03-05 11:09] VITALS: BMI 18.5
[2022-08-02 07:41] LABS: Absolute Lymphocyte Count 1.22 X10^3/uL (0.83-4.51); Absolute Neutrophil Count 5.8 X10^3/uL (2.0-7.7); Basophil# 0.05 X10^3/uL; Basophil% 0.6 % (0-1); Eosinophil# 0.05 X10^3/uL; Eosinophils% 0.6 % (0-5); Hematocrit 38.7 % (37-47); Hemoglobin 12.5 g/dL (12.0-15.0); Lymphocyte # 1.22 X10^3/ul (0.83-4.51); Lymphocyte % 14.7 % (19-41); Mean Corp Hgb Conc 32.3 g/dL (32-36); Mean Corpuscular Hgb 28.2 pg (27.0-32.0); Mean Corpuscular Volume 87.4 fL (81-99); Mean Platelet Vol. 9.7 fl (6.2-12.0); Monocyte# 1.17 X10^3/uL; Monocyte% 14.1 % (0-10); NRBC Flagged by Analyzer 0 % (0-5); Neutrophil # 5.78 X10^3/uL (2.7-7.7); Neutrophil % 69.5 % (47-70); Platelet Count 291 K/mm3 (150-450); RBC Distribution Width CV 12.7 % (11.6-14.6); RBC Distribution Width SD 40.7 fl (35.1-43.9); Red Blood Count 4.43 M/mm3 (4.2-5.4); White Blood Count 8.3 K/mm3 (4.4-11.0)
[2022-08-02 08:15] LABS: Thyroid Stim Hormone (TSH) 2.55 uIU/mL (0.358-3.74)
== END | disposition home or self-care (01) ==
PROVIDERS: PCP Family Medicine; Referring Provider Family Medicine; Visit Provider Family Medicine
DX: I25.10 Atherosclerotic heart disease of native coronary artery without angina pectoris (principal); E03.9 Hypothyroidism, unspecified; D64.9 Anemia, unspecified
CPT/HCPCS: 36415; 84443; 85025

== ENCOUNTER → 2022-08-24 | Outpatient (CLI) | payer MEDICARE, SELFPAY ==
[2021-03-05 11:09] VITALS: BMI 18.5
--- NOTE | 2022-08-24 11:00 | BD_ITS ---
STUDY: DUAL ENERGY X-RAY ABSORPTIOMETRY / DXA REASON FOR EXAM: Female, 77 years old. M85.89 TECHNIQUE: Bone Mineral Density (BMD) measurements of lumbar spine and bilateral hips were obtained. COMPARISON: None. FINDINGS: Lumbar Spine (L1-L4): g/cm2 (0.785) / T-score (-2.4) / Z-score (0.0) Findings are suggestive of osteopenia with a high fracture risk. Left Femur Total: g/cm2 (0.649) / T-score (-2.4) / Z-score (-0.6) Left Femoral Neck: g/cm2 (0.602) / T-score (-2.2) / Z-score (-0.1) Right Femur Total: g/cm2 (0.610) / T-score (-2.7) / Z-score (-0.9) Right Femoral Neck: g/cm2 (0.542) / T-score (-2.8) / Z-score (-0.7) BD/Dexa Bone Density Study IMPRESSION: The patient is considered osteoporotic as outlined below according to World Nato Organization (WHO) criteria with a high fracture risk. Reference Information: The T-score is the number of standard deviations above or below the standard which is normal for young adults at their peak bone mineral density. The World Health Organization (WHO) interprets the T-scores as follows: Above -1 Normal bone density Between -1 and -2.5 Osteopenia Equal to / or below -2.5 Osteoporosis As a practical clinical guideline, osteopenia may be graded as follows: Mild -1 through -1.5 Moderate -1.6 through -2.0 Severe -2.1 through -2.4 The Z-score is the number of standard deviations above or below age-matched controls. A Z-score of less than -1.5 would be considered abnormal. References: 1. NIH Osteoporosis and Related Bone Diseases www osteo.org 2. International Society for Clinical Densitometry www iscd.org 3. National Osteoporosis Foundation www nof.org Electronically Signed: Monroe Nicole MD at 11:30 EST ,
== END | disposition home or self-care (01) ==
PROVIDERS: PCP Family Medicine; Referring Provider Family Medicine; Visit Provider Family Medicine
DX: M85.89 Other specified disorders of bone density and structure, multiple sites (principal)
CPT/HCPCS: 77080

== ENCOUNTER → 2022-11-17 | Outpatient (CLI) | payer MEDICARE, SELFPAY ==
[2021-03-05 11:09] VITALS: BMI 18.5
[2022-11-17 07:55] LABS: AST(SGOT) 27 U/L (15-37); Alanine Aminotransfer ALT/SGPT 22 U/L (13-56); Albumin, Serum 3.9 g/dL (3.2-5.0); Alkaline Phosphatase 62 U/L (45-117); Bilirubin, Direct 0.16 mg/dL (0.00-0.30); Cholesterol 174 mg/dL (200); Globulin 4.2 g/dL (2.2-4.2); High Density Lipoprotein 77 mg/dL; Protein, Total 8.1 g/dL (6.4-8.2); Triglycerides 120 mg/dL; Very Low Density Lipoprotein 24 mg/dL (5-40)
== END | disposition home or self-care (01) ==
LOC: LAB 06:47
PROVIDERS: PCP Family Medicine; Visit Provider Nurse Practitioner Gerontology
DX: E78.00 Pure hypercholesterolemia, unspecified (principal)
CPT/HCPCS: 36415; 80061; 80076

== ENCOUNTER 2023-01-23 18:01 | Emergency (ER) | payer MEDICARE, SELFPAY ==
[2021-03-05 11:09] VITALS: BMI 18.5
[2023-01-23 18:03] VITALS: BP 210/90; PULSE 82; RESP 18; TEMP 36; O2SAT 100; BMI 19.5
[2023-01-23 18:12] VITALS: BP 177/93; PULSE 76; RESP 16; O2SAT 100
--- NOTE | 2023-01-23 18:15 | EKG12_ITS ---
Test Reason : WEAKNESS Blood Pressure : / mmHG Vent. Rate : 072 BPM Atrial Rate : 072 BPM P-R Int : 154 ms QRS Dur : 066 ms QT Int : 384 ms P-R-T Axes : 063 -18 074 degrees QTc Int : 420 ms Normal sinus rhythm Septal infarct , age undetermined Abnormal ECG Confirmed by ARI VERA, KWADWO ([id number]), marketing editor REILLY HIGGINS ([id number]) on 01/26/2023 9:06:36 AM Referred By: YOUNG Confirmed By:KWADWO CHAPMAN MD
--- NOTE | 2023-01-23 18:17 | EX.ED.DYSGE1 ---
HPI <NENA Flores - Last Filed: 01/23/23 20:25> History of Present Illness Chief Complaint: Hypertension Narrative Narrative: Patient presenting today for elevated blood pressure that started this evening. She reports that for the past few days that she has felt weak and it was worse today. She was on her way to [place] but had to turn around and go home due to feeling this way. When she got home she took her blood pressure and reports that it was low. She then took it later in the day and reports that it was very high, prompting her to come in. She does have a history of hypertension and takes lisinopril. She reports that her blood pressure is generally in the 120s systolic. PMH includes hypertension, history of CABG, and stent placement. She denies any fever, chills, abdominal pain, vomiting, urinary symptoms, cough, shortness of breath, and chest pain. She reports intermittent nausea over the past few days. PFSH <NENA Flores - Last Filed: 01/23/23 20:25> [facility] Medical History Anemia Anxiety Arthritis Atherosclerosis of coronary artery of [place] heart without angina pectoris Breast cancer Essential hypertension GERD (gastroesophageal reflux disease) Hiatal hernia History of hepatitis A Hyperlipidemia Hypothyroidism IBS (irritable bowel syndrome) Osteoarthritis Osteopenia Unstable angina Home Medications aspirin 81 mg chewable tablet 81 mg PO DAILY@0800 heart 05/30/20 [History Last Taken 01/26/21] cholecalciferol (vitamin D3) 50 mcg (2,000 unit) capsule 50 mcg PO DAILY supplement 05/30/20 [History Last Taken 05/30/20] estradiol 0.01% (0.1 mg/gram) vaginal cream 1 ea vaginal WE supplement 05/30/20 [History Last Taken 05/28/20] cranberry 400 mg capsule 800 mg PO DAILY 12/22/20 [History Last Taken Unknown] estradiol 0.5 mg tablet 0.5 mg PO QHS 12/22/20 [History Last Taken Unknown] flaxseed oil 1,000 mg capsule 1,000 mg PO BID 12/22/20 [History Last Taken Unknown] lisinopril 10 mg tablet See Rx Instructions .Route .COMPLEX #135 tabs 08/02/22 [Rx Last Taken Unknown] nitroglycerin 0.4 mg sublingual tablet 0.4 mg sublingual Q5M PRN chest pain #25 tabs 08/02/22 [Rx Last Taken Unknown] simvastatin 10 mg tablet 10 mg PO DAILY #90 tabs 08/02/22 [Rx Last Taken Unknown] alendronate 70 mg tablet 70 mg PO QWEEK 10/04/22 [History Last Taken Unknown] clopidogrel 75 mg tablet (Plavix) 75 mg PO .3xweek 10/04/22 [History Last Taken Unknown] levothyroxine 25 mcg tablet 50 mcg PO DAILY thyroid 10/04/22 [History Last Taken Unknown] Allergy/AdvReac Type Severity Reaction Status Date / Time lactose AdvReac Upset Verified 01/23/23 18:03 Stomach metoprolol AdvReac dizziness Verified 01/23/23 18:03 Penicillins AdvReac Hives Verified 01/23/23 18:03 Family History Sister Breast cancer Grandmother Breast cancer Father CVA (cerebral vascular accident) Myocardial infarction Mother Parkinson's disease Brother Seizures CVA (cerebral vascular accident) Surgical History H/O coronary artery bypass surgery (06/16/99) History of bilateral breast implants History of bilateral mastectomy History of bunionectomy History of cataract surgery History of cholecystectomy History of coronary artery stent placement (02/03/21) History of hammer toe correction History of hysterectomy History of left heart catheterization (01/26/21) History of right knee surgery History of shoulder surgery Social History Smoking Status: Never smoker alcohol intake: never substance use type: does not use what type of physical activity do you participate in: walking frequency: 5-6 times per week ROS <NENA Flores - Last Filed: 01/23/23 20:25> ROS ED Constitutional Constitutional ED: Denies chills or fever(s) Eyes Eyes: Denies blurry vision or change in vision Cardiovascular Cardiovascular: Denies chest pain or palpitations Respiratory/Chest Respiratory/Chest: Denies cough or dyspnea Gastrointestinal Gastrointestinal: Denies abdominal pain, nausea or vomiting Genitourinary Genitourinary ED: Denies dysuria, hematuria or urinary urgency Musculoskeletal Musculoskeletal: Denies arthralgias or myalgias Integumentary Denies rash Neurologic Neurologic: Reports weakness; Denies dizziness or headache(s) EXAM <NENA Flores - Last Filed: 01/23/23 20:25> Physical Exam Const Vital Signs: 01/23/23 18:03 01/23/23 18:12 01/23/23 18:14 Temperature 96.8 F L Temperature Source Temporal Pulse Rate 82 76 Respiratory Rate 18 16 Respiratory Pattern Normal Blood Pressure 210/90 H 177/93 H Blood Pressure Mean 130 121 Pulse Ox 100 100 Oxygen Delivery Method Room Air Room Air 01/23/23 19:01 01/23/23 19:11 Temperature Temperature Source Pulse Rate 65 63 Respiratory Rate 14 Respiratory Pattern Blood Pressure 163/70 H 163/70 H Blood Pressure Mean 101 101 Pulse Ox 100 Oxygen Delivery Method Room Air Positive well nourished, well developed and no apparent distress General Appearance ED: well developed HEENT Reports normocephalic and head/scalp atraumatic Mouth ED: Yes moist mucous membranes normal Eyes PERRL and EOMs intact bilaterally Neck full ROM and supple Chest Wall inspection of chest normal Resp normal respiratory effort and clear to auscultation bilaterally Cardio regular rate and regular rhythm GI soft to palpation, non-tender, non-distended and no masses Back/Spine normal ROM and normal to inspection Extremity normal to inspection and full ROM Neuro oriented x3, CN's II-XII intact bilaterally, moves all extremities, no focal motor deficits and no sensory deficits noted Sensorium / Orientation: awake and alert Psych mental status grossly normal and thought process normal Skin no rashes or lesions noted and no wounds <Dr. Scot Lyle MD - Last Filed: 01/23/23 19:15> Physical Exam Const Vital Signs: 01/23/23 18:03 01/23/23 18:12 01/23/23 18:14 Temperature 96.8 F L Temperature Source Temporal Pulse Rate 82 76 Respiratory Rate 18 16 Respiratory Pattern Normal Blood Pressure 210/90 H 177/93 H Blood Pressure Mean 130 121 Pulse Ox 100 100 Oxygen Delivery Method Room Air Room Air 01/23/23 19:01 01/23/23 19:11 Temperature Temperature Source Pulse Rate 65 63 Respiratory Rate 14 Respiratory Pattern Blood Pressure 163/70 H 163/70 H Blood Pressure Mean 101 101 Pulse Ox 100 Oxygen Delivery Method Room Air [facility] <NENA Flores - Last Filed: 01/23/23 20:25> [facility] Narrative Medical decision making narrative: Patient presenting today due to elevated blood pressure as she has had since this evening. She reports that earlier today her blood pressure was low and felt that it kept fluctuating from low to high. She is also been feeling weak over the past few days. She has not had any urinary symptoms to indicate a UTI, no cough to indicate pneumonia. Lungs are clear and examination is WNL. Labs will be obtained to rule out leukocytosis, anemia, electrolyte abnormality, PATTIE. EKG will be obtained to rule out arrhythmia and STEMI.?Patient's blood pressure was 210/90, it has gone down to 163/70. Patient is hyponatremic here at 125. She reports that she has a history of this and her PCP has encouraged her to eat more salt but she does not like eating food with salt so she eats very little of it. She will be given 1 L of IV fluids and will be reevaluated. On reexamination she reports that she feels well and would like to go home. I did speak with her PCP, Dr. Harley who states that she will see her on Tuesday for repeat blood work. She will be discharged home in stable condition and is comfortable with plan. She has been given return instructions. I have personally performed a face to face assessment of the patient and have reviewed the ALFREDO Note. I performed a substantive portion of the visit including all aspects of the following. My rapp findings include: History is 77-year-old female complaint is not feeling well today. Elevated and low blood pressure. Denies vomiting or diarrhea. Denies fever or chills. Denies dysuria. No chest pain, shortness of breath or abdominal pain. States she just does not feel well. Exam is [well-appearing 77-year-old female. Vital signs are stable. Initial blood pressure 210/90 that is improving without medication. Pulse ox 100% on room air no signs hypoxia. She is in no distress. HEENT exam unremarkable. Moist mucous members. Neck nontender no JVD. No lymphadenopathy. Lungs clear to auscultation bilaterally. Heart regular rhythm rate about 80 no murmur. Chest were nontender. Abdomen soft nontender. No peritoneal signs. Moving all 4 extremities. Nontender no edema. Neurologically she is awake alert with no focal motor deficits.] Medical Decision Making [77-year-old female not feeling well. Currently vital signs are stable. Clinically looks well. Benign exam. Screening labs and EKG will be obtained.] Other additions or changes: [None] Lab Data Labs: Laboratory Results - last 24 hr 01/23/23 18:20 WBC 9.2 RBC 4.17 L Hgb 12.2 Hct 35.7 L MCV 85.6 MCH 29.3 MCHC 34.2 RDW Std Deviation 39.5 RDW Coeff of Niya 12.6 Plt Count 285 MPV 9.2 Immature Gran % (Auto) 0.400 Neut % (Auto) 65.6 Lymph % (Auto) 18.1 L [place] % (Auto) 14.5 H Eos % (Auto) 1.0 Baso % (Auto) 0.4 Absolute Neuts (auto) 6.0 Absolute Lymphs (auto) 1.67 Nucleated RBC % 0 Sodium 125 L Potassium 3.9 Chloride 91 L Carbon Dioxide 26.0 Anion Gap 8 BUN 13 Creatinine 0.69 Estim Creat Clear Calc 33.69 Est GFR (MDRD) Af Amer 106 Est GFR (MDRD) Non-Af 88 BUN/Creatinine Ratio 18.8 Glucose 107 H Calcium 9.0 EKG Initial EKG: Comments: 72 bpm, normal sinus rhythm, no ST elevation, reviewed and interpreted by attending ED physician <Dr. Scot Lyle MD - Last Filed: 01/23/23 19:15> [facility] MDM Narrative Medical decision making narrative: Patient presenting today due to elevated blood pressure as she has had since this evening. She reports that earlier today her blood pressure was low and felt that it kept fluctuating from low to high. She is also been feeling weak over the past few days. She has not had any urinary symptoms to indicate a UTI, no cough to indicate pneumonia. Lungs are clear and examination is WNL. Labs will be obtained to rule out leukocytosis, anemia, electrolyte abnormality, PATTIE. EKG will be obtained to rule out arrhythmia and STEMI.?Patient's blood pressure was 210/90, it has gone down to 177/93. I have personally performed a face to face assessment of the patient and have reviewed the ALFREDO Note. I performed a substantive portion of the visit including all aspects of the following. My rapp findings include: History is 77-year-old female complaint is not feeling well today. Elevated and low blood pressure. Denies vomiting or diarrhea. Denies fever or chills. Denies dysuria. No chest pain, shortness of breath or abdominal pain. States she just does not feel well. Exam is [well-appearing 77-year-old female. Vital signs are stable. Initial blood pressure 210/90 that is improving without medication. Pulse ox 100% on room air no signs hypoxia. She is in no distress. HEENT exam unremarkable. Moist mucous members. Neck nontender no JVD. No lymphadenopathy. Lungs clear to auscultation bilaterally. Heart regular rhythm rate about 80 no murmur. Chest were nontender. Abdomen soft nontender. No peritoneal signs. Moving all 4 extremities. Nontender no edema. Neurologically she is awake alert with no focal motor deficits.] Medical Decision Making [77-year-old female not feeling well. Currently vital signs are stable. Clinically looks well. Benign exam. Screening labs and EKG will be obtained.] Other additions or changes: [None] Lab Data Attestation: I reviewed the patient's lab results. Lab results narrative: CBC shows a white count of 9. H&H 12.2 and 35. Platelets 285. Electrolytes show a sodium 125. Gap of 8. Normal BUN and creatinine. Glucose of 107. Labs: Laboratory Results - last 24 hr 01/23/23 18:20 WBC 9.2 RBC 4.17 L Hgb 12.2 Hct 35.7 L MCV 85.6 MCH 29.3 MCHC 34.2 RDW Std Deviation 39.5 RDW Coeff of Niya 12.6 Plt Count 285 MPV 9.2 Immature Gran % (Auto) 0.400 Neut % (Auto) 65.6 Lymph % (Auto) 18.1 L [place] % (Auto) 14.5 H Eos % (Auto) 1.0 Baso % (Auto) 0.4 Absolute Neuts (auto) 6.0 Absolute Lymphs (auto) 1.67 Nucleated RBC % 0 Sodium 125 L Potassium 3.9 Chloride 91 L Carbon Dioxide 26.0 Anion Gap 8 BUN 13 Creatinine 0.69 Estim Creat Clear Calc 33.69 Est GFR (MDRD) Af Amer 106 Est GFR (MDRD) Non-Af 88 BUN/Creatinine Ratio 18.8 Glucose 107 H Calcium 9.0 Discharge Plan Triage Chief Complaint: Hypertension ED Midlevel Provider: Katelin Chin ED Provider: Scot Lyle Dx/Rx/DC Orders Clinical Impression: Acute hyponatremia, Hypertension Instructions: ED Hyponatremia Prescriptions: No Action cranberry 400 mg capsule 800 mg PO DAILY Rx Instructions: administer with a meal estradiol 0.5 mg tablet 0.5 mg PO QHS Patient Comments: take 1 tablet by mouth once daily flaxseed oil 1,000 mg capsule 1,000 mg PO BID Rx Instructions: administer with meals alendronate 70 mg tablet 70 mg PO QWEEK clopidogrel [Plavix] 75 mg tablet 75 mg PO .3xweek aspirin 81 MG tablet,chewable 81 mg PO DAILY@0800 estradiol 42.5 GM cream 1 ea VAGINAL WE Patient Comments: INSERT 0.1 APPLICATIONS VAGINALLY ONCE A WEEK cholecalciferol (vitamin D3) 50 MCG capsule 50 mcg PO DAILY levothyroxine 25 mcg tablet 50 mcg PO DAILY lisinopril 10 mg tablet See Rx Instructions .ROUTE .COMPLEX Qty: 135 3RF Dose Instruction: take 1 AND 1/2 tablets by mouth once daily Rx Instructions: take 1 AND 1/2 tablets by mouth once daily simvastatin 10 mg tablet 10 mg PO DAILY Qty: 90 3RF nitroglycerin 0.4 mg tablet, sublingual 0.4 mg sublingual Q5M PRN (Reason: chest pain) Qty: 25 1RF Primary Care Provider: Adela Harley Referrals: Adela Harley MD [Primary Care Provider] - 3-5 Days (Follow-up with your doctor to have your sodium level rechecked because if it is going lower and not improving you may need to be admitted to the hospital.) Activity Restrictions/Additional Instructions: Please follow-up with your PCP for repeat blood work. Return for any worsening of your symptoms. Disposition Disposition: Home, Self Care
[2023-01-23 18:25] LABS: Absolute Lymphocyte Count 1.67 X10^3/uL (0.83-4.51); Basophil# 0.04 X10^3/uL; Basophil% 0.4 % (0-1); Eosinophil# 0.09 X10^3/uL; Hematocrit 35.7 % (37-47); Hemoglobin 12.2 g/dL (12.0-15.0); Lymphocyte # 1.67 X10^3/ul (0.83-4.51); Lymphocyte % 18.1 % (19-41); Mean Corp Hgb Conc 34.2 g/dL (32-36); Mean Corpuscular Hgb 29.3 pg (27.0-32.0); Mean Corpuscular Volume 85.6 fL (81-99); Mean Platelet Vol. 9.2 fl (6.2-12.0); Monocyte# 1.34 X10^3/uL; Monocyte% 14.5 % (0-10); NRBC Flagged by Analyzer 0 % (0-5); Neutrophil # 6.04 X10^3/uL (2.7-7.7); Neutrophil % 65.6 % (47-70); Platelet Count 285 K/mm3 (150-450); RBC Distribution Width CV 12.6 % (11.6-14.6); RBC Distribution Width SD 39.5 fl (35.1-43.9); Red Blood Count 4.17 M/mm3 (4.2-5.4); White Blood Count 9.2 K/mm3 (4.4-11.0)
[2023-01-23 18:39] LABS: Anion Gap 8 (5-15); BUN 13 mg/dL (7-18); BUN/Creat Ratio 18.8 RATIO (10-20); Chloride 91 mmol/L (98-107); Creatinine, Serum 0.69 mg/dL (0.55-1.02); EST Glomerular Filtration Rate 88 mL/min (>60); Est Glom Filt Rate - Afr Amer 106 mL/min (>60); Estimated Creatinine Clearance 33.69 ml/min; Glucose 107 mg/dL (74-106); Potassium 3.9 mmol/L (3.5-5.1); Sodium Level 125 mmol/L (136-145)
[2023-01-23] MEDS: 0.9% Normal Saline 1,000 ML 999 ML IV (18:58)
[2023-01-23 19:01] VITALS: BP 163/70; PULSE 65
[2023-01-23 19:11] VITALS: BP 163/70; PULSE 63; RESP 14; O2SAT 100
== END 2023-01-23 20:34 | disposition home or self-care (01) ==
PROVIDERS: Physician Assistant; Emergency Provider Emergency Medicine; PCP Family Medicine; Visit Provider Emergency Medicine
DX: E87.1 Hypo-osmolality and hyponatremia (principal); I10 Essential (primary) hypertension; I25.10 Atherosclerotic heart disease of native coronary artery without angina pectoris; E03.9 Hypothyroidism, unspecified; Z79.82 Long term (current) use of aspirin; Z79.02 Long term (current) use of antithrombotics/antiplatelets; Z79.890 Hormone replacement therapy; Z79.899 Other long term (current) drug therapy; Z95.1 Presence of aortocoronary bypass graft; Z95.5 Presence of coronary angioplasty implant and graft
CPT/HCPCS: 80048; 85025; 93005; 96360; 99282; J7030; A4216

== ENCOUNTER → 2023-01-25 | Outpatient (CLI) | payer MEDICARE, SELFPAY ==
[2021-03-05 11:09] VITALS: BMI 18.5
[2023-01-25 19:09] LABS: Anion Gap 7 (5-15); BUN 13 mg/dL (7-18); Calcium,Total 8.7 mg/dL (8.5-10.1); Chloride 101 mmol/L (98-107); Creatinine, Serum 0.76 mg/dL (0.55-1.02); EST Glomerular Filtration Rate 78 mL/min (>60); Est Glom Filt Rate - Afr Amer 95 mL/min (>60); Glucose 128 mg/dL (74-106); Sodium Level 133 mmol/L (136-145)
== END | disposition home or self-care (01) ==
LOC: BFHLAB 15:20
PROVIDERS: PCP Family Medicine; Referring Provider Family Medicine; Visit Provider Family Medicine
DX: E87.1 Hypo-osmolality and hyponatremia (principal)
CPT/HCPCS: 36415; 80048

== ENCOUNTER → 2023-02-21 | Outpatient (CLI) | payer MEDICARE, SELFPAY ==
[2021-03-05 11:09] VITALS: BMI 18.5
[2023-02-21 07:58] LABS: Anion Gap 2 (5-15); BUN 14 mg/dL (7-18); Chloride 102 mmol/L (98-107); Creatinine, Serum 0.78 mg/dL (0.55-1.02); EST Glomerular Filtration Rate 77 mL/min (>60); Est Glom Filt Rate - Afr Amer 93 mL/min (>60); Glucose 89 mg/dL (74-106); Sodium Level 133 mmol/L (136-145); Thyroid Stim Hormone (TSH) 2.79 uIU/mL (0.358-3.74)
[2023-02-21 09:00] LABS: Vitamin D,25 Hydroxy 60.2 ng/mL
== END | disposition home or self-care (01) ==
LOC: LAB 06:44
PROVIDERS: PCP Family Medicine; Referring Provider Family Medicine; Visit Provider Family Medicine
DX: M81.0 Age-related osteoporosis without current pathological fracture (principal); E87.1 Hypo-osmolality and hyponatremia; E03.9 Hypothyroidism, unspecified; E55.9 Vitamin D deficiency, unspecified
CPT/HCPCS: 36415; 80048; 82306; 84443

== ENCOUNTER → 2023-08-22 | Outpatient (CLI) | payer MEDICARE, SELFPAY ==
[2021-03-05 11:09] VITALS: BMI 18.5
--- OUTSIDE RECORDS SUMMARY | 2023-08-22 06:47 | XMS RPT_ITS | CCD ---
Author Name Unknown Address [address] [place] [address] Organization [facility] Care Team Providers Care Asbestos Removal Supervisor Name Role Phone Diana Thomason Unavailable [phone] Thmoason, Diana Unavailable Unavailable Thomason, Diana Unavailable Unavailable Thomason, Diana Unavailable Unavailable Thomason, Diana Unavailable Unavailable Thomason, Diana Unavailable Unavailable Thomason, Diana Unavailable Unavailable Diana Thomason Primary Care Provider Unavaila ble Diana Thomason Primary Care Provider Diana Thomason Primary Care Provider [phone] Diana Thomason MD Primary Care Provider Adela Harley MD Primary Care Provider Allergies Allergy Classification Reported Allergen(s) Allergy Type Date of Onset Reaction(s) Facility Penicillins (antibiotic) (1 source) Penicillins Drug Allergy 6 [facility] (2 sources) Penicillins Propensity to adverse reactions to drug 6 [facility] (20 sources) casein (cow milk) allergenic extract Drug Allergy Abdominal Discomfort [facility] (20 sources) Penicillins Propensity to adverse reactions to drug [facility] (20 sources) *Seasonal Propensity to adverse reactions to substance Runny Nose [facility] (2 sources) Lactose Drug Allergy 1 Diarrhea [facility] (2 sources) Penicillins Drug Intolerance [address] [facility] Work Phone: Medications Current Medications Medication Drug Class(es) Dates Sig (Normalized) Sig (Original) amLODIPine 2.5 mg oral tablet (20 sources) Dihydropyridine Calcium Channel Stacy Start: 06-15-2019 End: 03-03-2020 take 1 tablet by mouth once daily amLODIPine 2.5 MG tablet Indications: Essential hypertension Take 1 tablet by mouth daily. 90 tablet 1 03/03/2020 Active Completed/Discontinued Medications Medication Drug Class(es) Dates Sig (Normalized) Sig (Original) aspirin 81 mg delayed release oral tablet (20 sources) Nonsteroidal Anti-inflammatory Drug aspirin, enteric coated (ASPIRIN, ENTERIC COATED) 81 mg EC tablet Take 81 mg by mouth. 0 Active Problems Active Problems Problem Classification Problem Date Documented Date Episodic/Chronic Abdominal hernia (1 source) Hiatal hernia; Translations: [Hiatal hernia] Episodic Abdominal pain (20 sources) Right upper quadrant pain; Translations: [Epigastric pain] Onset: 01-24-2019 Resolved: 03-13-2019 03-22-2017 Episodic Cardiac dysrhythmias (20 sources) Drug-induced bradycardia; Translations: [Bradycardia, drug induced] Onset: 06-21-2017 06-21-2017 Chronic Complication of device; implant or graft (20 sources) Arteriosclerosis of coronary artery bypass graft; Translations: [Atherosclerosis of coronary artery bypass graft without angina pectoris] 03-22-2017 Chronic Coronary atherosclerosis and other heart disease (20 sources) Coronary arteriosclerosis; Translations: [Coronary atherosclerosis] Onset: 10-20-2016 Resolved: 03-29-2017 10-20-2016 Chronic Disorders of lipid metabolism (20 sources) Hyperlipidemia; Translations: [Pure hypercholesterolemia] Onset: 10-20-2016 Resolved: 03-29-2017 10-20-2016 Chronic Esophageal disorders (1 source) Gastro-esophageal reflux disease without esophagitis; Translations: [Gastroesophageal reflux disease without esophagitis] Chronic Essential hypertension (20 sources) Hypertensive disorder; Translations: [Essential hypertension] Onset: 10-20-2016 10-20-2016 Chronic Fluid and electrolyte disorders (2 sources) Hyponatremia; Translations: [Hyponatremia] Episodic Menopausal disorders (20 sources) Atrophic vaginitis; Translations: [Postmenopausal atrophic vaginitis] 03-22-2017 Chronic Nonspecific chest pain (1 source) Chest pain; Translations: [Chest pain, unspecified type] Episodic Osteoarthritis (20 sources) Osteoarthritis; Translations: [Unspecified osteoarthritis, unspecified site] 03-22-2017 Chronic Other bone disease and musculoskeletal deformities (20 sources) Disorder of bone; Translations: [Disorder of bone, unspecified] 03-22-2017 Episodic Other circulatory disease (20 sources) Raynaud's disease; Translations: [Raynaud's syndrome without gangrene] Onset: 10-20-2016 10-20-2016 Chronic Other liver diseases (20 sources) Inflammatory disease of liver; Translations: [Hepatitis] 03-22-2017 Chronic Other non-traumatic joint disorders (20 sources) Joint pain; Translations: [Pain in unspecified joint] 03-22-2017 Episodic Other nutritional; endocrine; and metabolic disorders (20 sources) Body mass index less than 20; Translations: [Body mass index (BMI) 19 or less, adult] 03-22-2017 Episodic Other upper respiratory infections (1 source) Upper respiratory infection; Translations: [Acute upper respiratory infection, unspecified] Episodic Prolapse of female genital organs (20 sources) Cystocele; Translations: [Female bladder prolapse] 03-22-2017 Chronic Residual codes; unclassified (20 sources) Postmenopausal state; Translations: [Post-menopausal] 03-22-2017 Episodic Spondylosis; intervertebral disc disorders; other back problems (20 sources) Sciatica; Translations: [Sciatica, right side] 03-22-2017 Episodic Thyroid disorders (20 sources) Hypothyroidism; Translations: [Acquired hypothyroidism] 03-22-2017 Chronic Unclassified (3 sources) Drug therapy finding; Translations: [Hormone replacement therapy (postmenopausal)] 03-22-2017 Past or Other Problems Problem Classification Problem Date Documented Da te Episodic/Chronic Complication of device; implant or graft (14 sources) Coronary stent occluded; Translations: [Coronary stent occlusion, sequela] Onset: 01-08-2019 01-08-2019 Episodic Coronary atherosclerosis and other heart disease (14 sources) History of coronary artery bypass grafting; Translations: [S/P CABG x 1] Onset: 01-08-2019 01-08-2019 Episodic Residual codes; unclassified (14 sources) Family history of ischemic heart disease and other diseases of the circulatory system; Translations: [Family history of coronary artery disease] Onset: 01-08-2019 Resolved: 03-13-2019 01-08-2019 Episodic Unclassified (16 sources) Patient encounter status; Translations: [Pre-operative cardiovascular examination] Onset: 01-08-2019 Resolved: 03-13-2019 01-08-2019 Results Test Name Value Interpretation Reference Range Facil ity Vital Signs Date Time Vital Sign Value Performing Clinician Facility 09-21-2022 10:40-0400 Body temperature 101.41 [degF] Holly Sony NEUROLOGY HOSPITALIST[facility] [employer] [employer] Work Phone: [facility] 09-21-2022 10:40-0400 Body weight 43.91 kg Hollyelida Schroederk NEUROLOGY HOSPITALIST[employer] Work Phone: [facility] 09-21-2022 10:40-0400 Diastolic blood pressure 72 mm[Hg] Holly Sony NEUROLOGY HOSPITALIST[employer] Work Phone: [facility] 09-21-2022 10:40-0400 Heart rate 81 /min Holly Sony NEUROLOGY HOSPITALIST[employer] Work Phone: [facility] 09-21-2022 10:40-0400 Respiratory rate 18 /min Holly Sony NEUROLOGY HOSPITALIST[employer] Work Phone: [facility] 09-21-2022 10:40-0400 SaO2% (BldA) [Mass fraction] 98 % Holly Schroederk NEUROLOGY HOSPITALIST[employer] Work Phone: [facility] 09-21-2022 10:40-0400 Systolic blood pressure 128 mm[Hg] Holly Sony NEUROLOGY HOSPITALIST[employer] Work Phone: [facility] 03-03-2020 09:23-0400 BMI (Body Mass Index) 18.79 kg/m2 [facility] 03-03-2020 09:23-0400 Body weight 43.27 kg [facility] 03-03-2020 09:23-0400 BP Diastolic 74 mm[Hg] [facility] 03-03-2020 09:23-0400 BP Systolic 136 mm[Hg] [facility] 03-03-2020 09:23-0400 Height 151.8 cm [facility] 03-03-2020 09:23-0400 Pulse (Heart Rate) 59 /min [facility] 03-03-2020 09:23-0400 Pulse Oximetry 100 % [facility] 09-03-2019 09:28-0500 BMI (Body Mass Index) 19.06 kg/m2 [facility] 09-03-2019 [id number] Body weight 43.[address] [facility] 09-03-2019 09:28-0500 BP Diastolic 71 mm[Hg] [facility] 09-03-2019 09:28-0500 BP Systolic 128 mm[Hg] [facility] 09-03-2019 [id number] Height 151.[address] [facility] 09-03-2019 [id number] Pulse (Heart Rate) 62 /min [facility] 03-13-2019 09:15-0400 BMI (Body Mass Index) 18.5 kg/m2 [facility] 03-13-2019 09:15-0400 Body weight 43.[address] [facility] 03-13-2019 09:15-0400 BP Diastolic 70 mm[Hg] [facility] 03-13-2019 09:15-0400 BP Systolic 119 mm[Hg] [facility] 03-13-2019 09:15-0400 Pulse (Heart Rate) 54 /min [facility] 03-13-2019 09:15-0400 Respiratory Rate 16 /min [facility] 02-06-2019 11:21-0400 BP Diastolic 63 mm[Hg] [facility] 02-06-2019 11:21-0400 BP Systolic 127 mm[Hg] [facility] 02-06-2019 11:21-0400 Pulse (Heart Rate) 77 /min [facility] 02-06-2019 11:21-0400 Pulse Oximetry 94 % [facility] 02-06-2019 11:21-0400 Respiratory Rate 16 /min [facility] 02-06-2019 10:37-0400 Body Temperature 97.2 [degF] [facility] 02-06-2019 07:33-0400 BMI (Body Mass Index) 17.86 kg/m2 [facility] 02-06-2019 07:33-0400 Body weight 42.19 kg [facility] 02-06-2019 07:33-0400 Height 153.7 cm Dagoberto Gilbert [facility] 01-30-2019 09:36-0400 BMI (Body Mass Index) 17.66 kg/m2 [facility] 01-30-2019 09:36-0400 Body Temperature 97.81 [degF] [facility] 01-30-2019 09:36-0400 Body weight 43.09 kg Bucky [facility] 01-30-2019 09:36-0400 BP Diastolic 65 mm[Hg] [facility] 01-30-2019 09:36-0400 BP Systolic 137 mm[Hg] [facility] 01-30-2019 09:36-0400 Height 156.2 cm [facility] 01-30-2019 09:36-0400 Pulse (Heart Rate) 61 /min [facility] Encounters Encounter Date Encounter Type Care Provider Facility Start: 09-22-2022 Telephone encounter Blaine kaur APRN.[facility] Work Phone: [facility] Care Procedures Date Procedure Procedure Detail Performing Clinician Start: 08-27-2019 Lipid 1996 panel - Serum or Plasma Taylor Thomason Start: 03-06-2019 Lipid 1996 panel - Serum or Plasma Taylor Katelin Start: 12-22-2018 Esophagogastroduodenoscopy transoral diagnostic Diana Thomason Work Phone: Start: 10-26-2018 Electrocardiogram Historical Provider Start: 09-21-2018 Bone density scan Diana Thomason Work Phone: Start: 09-04-2018 Lipid 1996 panel - Serum or Plasma Taylor sa Katelin Start: 03-07-2018 End: 03-07-2018 Blood count complete auto&auto difrntl wbc Diana Thomason Work Phone: Start: 03-07-2018 End: 03-07-2018 Comprehensive metabolic 2000 panel - Serum or Plasma Diana Thomason Work Phone: Start: 03-07-2018 End: 03-07-2018 Lipid panel Diana Thomason Work Phone: Start: 03-20-2015 Colonoscopy Diana Thomason Plan of Treatment Date Care Activity Detail Author Start: 02-03-2026 LIPID SCREEN LIPID SCREEN [facility] Start: 03-20-2025 Colonoscopy COLONOSCOPY [facility] Start: 08-27-2024 Fasting lipid profile LIPID SCREENIN Tena [facility] Start: 03-06-2024 Fasting lipid profile LIPID SCREENIN [facility]ena [facility] Start: 02-05-2024 DIABETES SCREEN DIABETES SCREEN [facility] Start: 09-05-2023 Fasting lipid profile LIPID SCREENIN [facility] Start: 09-21-2022 End: 10-05-2022 SARS-CoV-2 (COVID-19) RNA [Presence] in Respiratory specimen by CANDIS with probe detection [facility] Work Phone: Immunizations Immunization Date Immunization Notes Care Provider Jazmin freeman 03-30-2017 pneumococcal [facility]ac charide [facility], [facility] pneumococcal conjuga te vaccine, [address] [facility] 03-04-2016 pneumococcal conjuga te vaccine, 13 valent [facility] 04-04-2013 zoster vaccine, live [place] Thomason [facility] 04-04-2013 zoster vaccine, unsp ecified formulation Diana Thomason [facility] Payers Date Payer Category Payer Unknown [employer] [facility] S AND BLUE SHIELD [employer] HMO [id number] 2022-Present [phone] [address] [place] [address] O [id number] 2017 Medicare MEDICARE ANTHEM HMO OR PPO MEDICARE ANTHEM HMO OR PPO xxxxxxxxxxxx 2017-Present xxxxxxxxxxxx [id number] 2017 Medicare MEDICARE ANTHEM HMO OR PPO MEDICARE ANTHEM HMO OR PPO xxxxxxxxxx 2017-Present xxxxxxxxxx [id number] 2015 Medicare [id number] [facility] [id number] Social History Date Type Detail Facility Start: 10-26-2016 End: 09-21-2022 Tobacco smoking status NHIS Never smoker [facility] Start: 1945 Sex Assigned At Not on file [facility] Start: 02-07-2019 End: 03-13-2019 Alcohol intake No [facility] Start: 10-26-2016 End: 09-03-2019 Alcohol intake Current non-drinker of alcohol (finding) [facility] Start: 03-03-2020 End: 09-21-2022 Tobacco use and exposure Never used [employer] Exposure to SARS-CoV -2 (event) Not sure [facility] Clinical Notes 02-02-2021 to 09-22-2022 Telephone Encounter - Antoinette Leiva LPN - 09/22/2022 8:16 AM EDTTelephone Encounter - Diana Villanueva - 09/22/2022 8:00 AM EDTPatient Salud Cardoza APRN.[facility] - 09/21/2022 10:52 AM EDT Note Date & Type Note Facility 09-22-2022 Miscellaneous Notes Patient returned call and went over results, notes from express care provider with understanding. Patient plans to call PCP to notify that she is COVID positive. Left message for patient to return call. Diana Villanueva You tested positive for COVID-19. Follow the CDC guidelines for isolation: 1. Everyone, regardless of vaccination status, should stay home for 5 days. 2. If you have no symptoms or your symptoms are resolving after 5 days, you can leave your house. 3. Continue to wear a mask around others for 5 additional days. If you have a fever, continue to stay home until your fever resolves, even if it is longer than 5 days. Please monitor your symptoms, and for any worrisome symptoms, call your primary care provider or schedule a visit with [facility]. A test is not recommended to return to work/school when meeting the above criteria. Blaine Leon APRN.[facility] documented in this encounter [facility] 09-21-2022 Instructions Holly Cardoza APRN.CNP - 09/21/2022 10:57 AM EDT covid and influenza test ordered You will be notified in 12-24 hours, results available on [employer] Home isolation until results are back Rest, increase water intake Motrin or Tylenol as needed for fever or pain. Salt water gargles, chloraseptic spray or lozenges as needed for sore throat. Warm beverages, honey. Nasal saline spray as needed Cool mist humidifier at night Tylenol (generic acetaminophen) 500 mg-2 tabs every 8 hrs. as needed for fever and aches Ibuprofen 600 mg (3-200mg tablets) every 6 hours -Mucinex (generic is fine) Guaifenesin 1200 mg twice daily to help with cough and to thin out mucus Flonase or Nasonex 2 sprays in each nostril once a day Tessalon Perles 1-2 every 8 hours, do not combine this with robitussin or delsym * Seek medical care immediately, call 911, go to ER if you have chest pain, difficulty breathing, shortness of breath, inability to swallow. documented in this encounter [facility] 09-21-2022 History of Presen t illness Narrative Subjective The history is provided by the patient. No [employer] was used. HPI Smita Goff is a 77 year old female who presents today for CC of cough, congestion and sore that, headache and body aches. She is feeling tired. This is day 5. She has not done a rapid - home test She has used tylenol cold and flu with out relief. She denies any known exposure to covid or other viral illnesses. BP 128/72 Pulse 81 Temp (!) 38.6 C (101.4 F) (Tympanic) Resp 18 Wt 43.9 kg (96 lb 12.8 oz) SpO2 98% BMI 19.55 kg/m Social History Tobacco Use Smoking status: Never Smokeless tobacco: Never PAST MEDICAL HISTORY Diagnosis Date Anemia Anxiety state Arthritis Breast cancer (HCC) CAD (coronary artery disease) GERD (gastroesophageal reflux disease) History of hepatitis A HTN (hypertension) Hypothyroidism IBS (irritable bowel syndrome) Mixed hyperlipidemia Osteopenia I have confirmed and edited as necessary, the [facility] Review of Systems Constitutional: Positive for malaise/fatigue. Negative for chills and fever. HENT: Positive for congestion, sinus pain and sore throat. Negative for ear pain. Respiratory: Positive for cough. Negative for sputum production, shortness of breath and wheezing. Cardiovascular: Negative for chest pain. Gastrointestinal: Negative for abdominal pain, diarrhea, nausea and vomiting. Musculoskeletal: Positive for myalgias. Neurological: Positive for headaches. Objective Physical Exam Vitals and nursing note reviewed. HENT: Head: Normocephalic and atraumatic. Right Ear: Tympanic membrane, ear canal and external ear normal. Left Ear: Tympanic membrane, ear canal and external ear normal. Nose: Mucosal edema, congestion and rhinorrhea present. Right Sinus: No maxillary sinus tenderness or frontal sinus tenderness. Left Sinus: No maxillary sinus tenderness or frontal sinus tenderness. Mouth/Throat: Pharynx: Uvula midline. No oropharyngeal exudate or posterior oropharyngeal erythema. Cardiovascular: Rate and Rhythm: Normal rate and regular rhythm. Heart sounds: Normal heart sounds. Pulmonary: Effort: Pulmonary effort is normal. Breath sounds: Normal breath sounds. Lymphadenopathy: Head: Right side of head: No submental, submandibular or tonsillar adenopathy. Left side of head: No submental, submandibular or tonsillar adenopathy. Cervical: No cervical adenopathy. Skin: General: Skin is warm and dry. Neurological: Mental Status: She is alert. Psychiatric: Mood and Affect: Affect normal. ASSESSMENT/PLAN: 1. URI with cough and congestion - ICD9: 465.9, ICD10: J06.9 - Discussed viral etiology and rationale for treatment. - Symptomatic treatment with prn analgesia - Supportive care with fluids and rest - Advise that if she desires covid antiviral, would need to have rapid test today, and start treatment today, if tests and positive to call back would start on molnupiravir due to drug interactions. Home isolation Testing ordered Comfort measures discussed - see patient instructions. When to seek higher level of care Notified in 12-24 hours with results, available on 2018 CORONAVIRUS Diagnosis and treatment plan were discussed and questions were answered to the patient's satisfaction. Pt acknowledged understanding of concepts and follow up plan. Specific signs and symptoms that would indicate the need for higher level of care were discussed in detail warranting prompt ER evaluation. Holly Cardoza APRN.[facility] documented in this encounter [facility] 09-10-2021 Note HNO ID: [id number] Author: Zackary Ross MD Service: ? Author Type: Physician Type: Progress Notes Filed: 09/10/2021 10:23 AM Note Text: Patient presents with: Animal Bite: cat bite R hand x this AM HPI: Bitten by her 16yo cat trying to brush her this morning. She has cuts and bleeding on her right hand. She has washed the hand with soap and water and alcohol. The wounds continue to seep blood through her bandages. She is on aspirin and plavix. The cat is indoor only it's entire life with regular vet appointments and shots. MEDICATIONS: clopidogrel (PLAVIX) 75 mg tablet TAKE 4 TABLETS BY MOUTH A SINGLE DOSE FOR A LOADING DOSE ON 10... (REFER TO PRESCRIPTION NOTES). lisinopril (PRINIVIL) 10 mg tablet Take 10 mg by mouth once daily. Take 1.5 tablets daily Estradiol (ESTRACE) 0.5 mg tablet Take 0.5 mg by mouth once daily. biotin 100 mg/gram powd Take by mouth. cholecalciferol, vitamin D3, (CHOLECALCIFEROL, VITD3,, BULK,) 100,000 unit/gram powd Take 50 mcg by mouth. aspirin, enteric coated (ASPIRIN, ENTERIC COATED) 81 mg EC tablet Take 81 mg by mouth. Flaxseed Oil oil 1,000 mg twice daily. levothyroxine (SYNTHROID) 25 mcg tablet Take 25 mcg by mouth once daily. nitroglycerin sublingual (NITROQUICK) 0.4 mg SL tablet Dissolve 0.4 mg under the tongue every 5 minutes as needed. rosuvastatin (CRESTOR) 20 mg tablet Take 20 mg by mouth once daily. ALLERGIES: ALLERGIES Allergen Reactions - Lactose Diarrhea - Penicillins Hives VITALS: BP 132/90 Pulse 68 Temp 36 ?C (96.8 ?F) Resp 18 Wt 44 kg (97 lb) SpO2 100% BMI 19.59 kg/m? PE: Pleasant, in no acute distress. Hand: Right. Saturated large bandages removed. 4mm linear and 5mm V-shaped lacerations on the mid dorsal right hand. Slowly oozing blood. Full ROM without pain. ASSESSMENT/PLAN: 1. Cat bite of hand, right, initial encounter - ICD9: 882.0, E906.3, ICD10: S61.451A, W55.01XA Wound appears to be a pinch and tear of the skin without deep puncture. Wound dressed with bacitracin on an adhesive bandage and mild compression achieved by COBAN wrap. Antibiotic prophylaxis: Has hives with aspirin. - DOXYCYCLINE MONOHYDRATE 100 MG CAPSULE - METRONIDAZOLE 500 MG TABLET Low tetanus risk. She does not like the side effects of site pain from the vaccine and declines. Follow up with signs of infection such as increasing redness, pain, swelling, purulent drainage, or fever/malaise. Zackary Ross MD [facility] 07-11-2021 Note HNO ID: [id number] Author: Sania Beck APRN.[facility] Service: ? Author Type: Nurse Practitioner Type: Progress Notes Filed: 07/11/2021 1:34 PM Note Text: CC: Patient presents with: Sore Throat: FATIGUE HPI: Smita Goff is a 76 year old female who presents to the office with complaint of respiratory symptoms, head congestion, cough, nonproductive, sore throat and sinus symptoms for the past day. Symptoms are worsening Associated symptoms includes nasal congestion and fatigue body aches. Denies , nausea, vomiting and diarrhea. Treatments tried include nothing so far. with no relief of symptoms. Sick contacts: unknown. History of asthma, frequent episodes of bronchitis, chronic bronchitis, bronchiectasis or COPD: No Smoker: No Seasonal/environmental allergies: No The ROS is otherwise negative. The patient's pmh, medications, allergies, and past visits are reviewed. PHYSICAL EXAM: BP 112/70 Pulse 61 Temp 36.2 ?C (97.2 ?F) (Tympanic) Resp 16 Wt 44.6 kg (98 lb 6.4 oz) SpO2 98% BMI 19.87 kg/m? General appearance: alert, cooperative, pleasant, in no acute distress Head: Normocephalic Eyes: EOM's intact, conjunctiva pink and moist, no icterus, sclera white, non-injected Oropharynx:moist without lesions, No erythema, exudates or tonsillar hypertrophy. Heart: Negative. RRR without obvious murmur, gallop, or rubs. No ectopy. Lungs: clear to auscultation, without rales or wheeze, good air exchange PAST MEDICAL HISTORY Diagnosis Date - Anemia - Anxiety state - Arthritis - Breast cancer (HCC) - CAD (coronary artery disease) - GERD (gastroesophageal reflux disease) - History of hepatitis A - HTN (hypertension) - Hypothyroidism - IBS (irritable bowel syndrome) - Mixed hyperlipidemia - Osteopenia PAST SURGICAL HISTORY Procedure Laterality Date - BUNIONECTOMY, LAPIDUS-TYPE - HEART CATHETERIZATION with stent - HEART SURGERY HX cabg - MASTECTOMY HX Bilateral with implants - ORTHOPEDIC SURGERY HX shoulder, knee and toes - TOTAL ABDOM HYSTERECTOMY ALLERGIES Lactose and Penicillins MEDICATIONS lisinopril (PRINIVIL) 10 mg tablet Take 10 mg by mouth once daily. Take 1.5 tablets daily Estradiol (ESTRACE) 0.5 mg tablet Take 0.5 mg by mouth once daily. biotin 100 mg/gram powd Take by mouth. cholecalciferol, vitamin D3, (CHOLECALCIFEROL, VITD3,, BULK,) 100,000 unit/gram powd Take 50 mcg by mouth. aspirin, enteric coated (ASPIRIN, ENTERIC COATED) 81 mg EC tablet Take 81 mg by mouth. Flaxseed Oil oil 1,000 mg twice daily. levothyroxine (SYNTHROID) 25 mcg tablet Take 25 mcg by mouth once daily. nitroglycerin sublingual (NITROQUICK) 0.4 mg SL tablet Dissolve 0.4 mg under the tongue every 5 minutes as needed. rosuvastatin (CRESTOR) 20 mg tablet Take 20 mg by mouth once daily. clopidogrel (PLAVIX) 75 mg tablet TAKE 4 TABLETS BY MOUTH A SINGLE DOSE FOR A LOADING DOSE ON 10... (REFER TO PRESCRIPTION NOTES). ticagrelor (BRILINTA) 90 mg tablet Take 1 tablet by mouth twice daily. metoprolol succinate ER (TOPROL XL) 25 mg 24 hr tablet Take 0.5 tablets by mouth once daily. FAMILY HISTORY Family history unknown: Yes Social History Tobacco Use - Smoking status: Never Smoker - Smokeless tobacco: Never Used Substance Use Topics - Alcohol use: Not on file - Drug use: Not on file ASSESSMENT/PLAN: 1. Suspected COVID-19 virus infection - ICD9: V01.79, ICD10: Z20.822 - COVID WITH FLUA+B, ROUTINE Potential red flag symptoms discussed with the patient. Reviewed appropriate action plan to take if red flag symptoms occur. Patient agreeable to treatment plan. Sania Beck APRN.[facility] 02-04-2021 Note HNO ID: [id number] Author: Florin Meyer MD Service: Cardiovascular Medicine Author Type: Resident Type: Progress Notes Filed: 02/04/2021 9:24 AM Note Text: Attestation signed by Yessica Greene MD at 02/06/2021 1:38 PM Attending Note I evaluated the patient and personally participated in the rapp components. I agree with the resident's findings and plan as documented and have discussed the case and management of the patient's care with the resident. Seen and reviewed by me on 02/04/21 Signature: Yessica Greene MD Date: 02/06/2021 Time: 1:37 PM [facility] PROGRESS NOTE Service Date: 02/04/2021 Service Time: 6:58 AM HISTORY OF PRESENT ILLNESS: Ms. Goff is a 75 year old female with a history of coronary artery disease status post one-vessel bypass surgery approximately 22 years ago, breast cancer status post remote double mastectomy, hypertension, hyperlipidemia, hypothyroidism and irritable bowel syndrome who presented to the hospital with complaints of chest pain. ? Patient reports that after her one-vessel bypass surgery 22 years ago, she had symptoms of stable angina only if she overexerted herself. However, in the last 1 to 2 years, she has started noticing worsening symptoms of exertional chest pain and dyspnea. She moved to a new house in [place] approximately a year ago as she was no longer able to take care of her prior yard due to recurrent episodes of exertional chest pressure. Since moving to [place], patient has recently established care with Dr. Valenzuela and underwent cardiac stress test for further evaluation in early January which was reportedly abnormal. As a result, she recently had cardiac catheterization performed on January 26 revealing 60% stenosis in the proximal OM1 with 80% stenosis in the mid RCA and 70% distal RCA stenosis. She was scheduled to have further evaluation with an FFR and rotablation at [facility] this upcoming . ? However, patient reports that yesterday while laying on the couch, she developed severe substernal chest pressure starting in her lower chest and radiating upwards into her neck, jaw and back. She did experience associated nausea, diaphoresis and shortness of breath. She went back to [place] where she was given aspirin, morphine and 4 sublingual nitroglycerin with resolution of her symptoms. She was subsequently transferred to [facility] for further evaluation. ? Patient otherwise denies any complaints of orthopnea, paroxysmal nocturnal dyspnea, lower extremity edema, presyncope, syncope, or palpitations. Interval History: No acute events overnight. Telemetry: Currently in sinus rhythm. Had episodes of bradycardia. Inpatient Medications: Current Facility-Administered Medications Medication Dose Route Frequency - rosuvastatin 20 mg tab(s) (CRESTOR) 20 mg ORAL DAILY - docusate sodium 100 mg cap(s) (COLACE) 100 mg ORAL BID - aspirin, enteric coated 81 mg tab(s) 81 mg ORAL DAILY - levothyroxine 25 mcg tab(s) (SYNTHROID) 25 mcg ORAL DAILY - Estradiol 0.5 mg tab(s) (ESTRACE) 0.5 mg ORAL DAILY - heparin 5,000 Units injection 5,000 Units SUBCUTANEOUS q 12 H - NaCl 0.9% iv flush bag 20 mL INTRAVENOUS PRN - sodium chloride 0.9 % (flush) 3-5 mL (BD POSIFLUSH) 3-5 mL INTRAVENOUS q 12 H - ondansetron 4 mg tab(s) (ZOFRAN) 4 mg ORAL q 6 H PRN Or - ondansetron (PF) 4 mg injection (ZOFRAN) 4 mg INTRAVENOUS q 6 H PRN - acetaminophen 650 mg tab(s) (TYLENOL) 650 mg ORAL q 6 H PRN - metoprolol succinate ER 12.5 mg tab(s) (TOPROL XL) 12.5 mg ORAL DAILY - melatonin 3 mg tab(s) 3 mg ORAL AT BEDTIME - ticagrelor 90 mg tab(s) (BRILINTA) 90 mg ORAL BID Facility-Administered Medications Ordered in Other Encounters Medication Dose Route Frequency - ticagrelor 90 mg tab(s) (BRILINTA) 90 mg ORAL BID Home Medications: Estradiol (ESTRACE) 0.5 mg tablet, Take 0.5 mg by mouth once daily. biotin 100 mg/gram powd, Take by mouth. cholecalciferol, vitamin D3, (CHOLECALCIFEROL, VITD3,, BULK,) 100,000 unit/gram powd, Take 50 mcg by mouth. amLODIPine (NORVASC) 2.5 mg tablet, Take 2.5 mg by mouth. aspirin, enteric coated (ASPIRIN, ENTERIC COATED) 81 mg EC tablet, Take 81 mg by mouth. docusate sodium (COLACE) 100 mg capsule, Take 100 mg by mouth. Flaxseed Oil oil, 1,000 mg twice daily. levothyroxine (SYNTHROID) 25 mcg tablet, Take 25 mcg by mouth once daily. nitroglycerin sublingual (NITROQUICK) 0.4 mg SL tablet, Dissolve 0.4 mg under the tongue every 5 minutes as needed. rosuvastatin (CRESTOR) 20 mg tablet, Take 20 mg by mouth once daily. Physical Exam: 02/04/21 0300 02/04/21 0400 02/04/21 0500 02/04/21 0600 BP: 126/63 129/56 129/64 129/61 Pulse: (!) 57 (!) 59 (!) 55 (!) 54 Resp: Temp: 36.8 ?C (98.2 ?F) TempSrc: (more content not included)... [facility] 02-03-2021 Note HNO ID: [id number] Author: Yessica Greene MD Service: Interventional Cardiology Author Type: Physician Type: Procedures Filed: 02/03/2021 10:50 AM Note Text: LEFT HEART CATHETERIZATION And PTCA PROCEDURE NOTE Surgery/Procedure Date: 02/03/2021 Referring Physician: Clinical History: This is a 75 year old female with exertional angina for complex PTCA and shockwave of the RCA Consent: Informed consent was obtained after the risks, benefits, and alternatives to and of this procedure were discussed in detail with the patient. Procedure in Detail: The patient was brought to the cardiac catheterization laboratory, prepped and draped in the usual sterile fashion. Anxiolysis was achieved with intravenous and intravenous benadryl. Local anesthesia was achieved over the wrist with 1% lidocaine. A pre-flushed 6-Mauritian sheath was inserted into the Right radial artery via the Seldinger technique without complications. Retrograde percutaneous diagnostic coronary angiography and left ventriculography were performed using a Ruben left 4 catheter, a 3-D RC catheter, and an angled pigtail catheter. There were no complications of the procedure. Findings: Outside Cardiac Angiography review : LEFT MAIN: Normal LEFT CIRCUMFLEX: Moderate OM disease with FFR = 0.89 LEFT ANTERIOR DESCENDING: Diffuse disease With patent AUGUSTINE RIGHT CORONARY ARTERY: Heavy calcified Proximal and mid lesion Patent AUGUSTINE to LAD PTCA note : RCA Shockwave . 80 pulses delivered to the distal and mid segment of the RCA Successful PTCA with CARLENE to the distal , mid and proximal RCA Good result obtained At this point, the procedure was terminated. All diagnostic wires and catheters were removed. Recommendations: 1. Daily aspirin indefinitely 2. Daily brilinta for at least the next 12 months, but preferably for the intermodal customer service since multiple drug eluting stents were deployed today. 3. Statin use 4. Secondary cardiac prevention measures. SIGNATURE: Yessica Greene MD PATIENT NAME: Smita Goff DATE: February 03, 2021 TIME: 10:35 AM [facility] 02-02-2021 Note HNO ID: [id number] Author: Candido Sauceda MD Service: Hospital Medicine Author Type: Physician Type: Progress Notes Filed: 02/02/2021 2:39 PM Note Text: DEPARTMENT OF HOSPITAL MEDICINE PROGRESS NOTE SERVICE DATE: 02/02/2021 SERVICE TIME: 2:36 PM Hospital Medicine/Primary Attending: Candido sauceda MD NIGHT AND WEEKEND COVERAGE: DYER COVERAGE: After 7pm, please call cross cover pager #[phone] Subjective INTERVAL HPI: Pt was admitted with chest pain last night. Currently she is chest pain free. Cardiology has evaluated patient and plan is for [facility] today. MEDICATIONS: Reviewed Objective PHYSICAL EXAM: BP 143/67 Pulse 70 Temp (Src) 98.2 (Oral) Resp 15 Ht 4' 11 (1.50m) Wt 95 lb (43.1kg) SpO2 98% BMI 19.18 kg/(m2). O2 Therapy: Room Air Physical Exam Performed GENERAL: Alert, no distress, cooperative SKIN: Skin color, texture, turgor normal. No rashes or lesions. CARDIAC: Normal S1 and S2; no rubs, murmurs, or gallops NEURO: Gait normal. Reflexes normal and symmetric. Sensation grossly intact, Cranial nerves II-XII intact Lines, Drains, and Airways Line Peripheral 02/01/21 Admission to Hospital Short Right Forearm 22 Gauge 1 day DATA: Diagnostic tests reviewed for today's visit: Most recent labs and imaging results. Assessment/Plan #Unbstable angina- she has known history of CAD s/p single vessel CABG, now admitted with worsening chest pain. Cariology has been consulted, appreciate recs. Plan is for [facility] today. She has not tolerated BB before due to low blood pressure. Her BP is stable now. She agrees to starting low dose BB. Continue Statin /ASA Medication and Non-Pharmacologic VTE Prophylaxis/Anticoagulants Anticoagulant AND Antiplatelet Medications (From admission, onward) Start Dose Route Frequency Last Action Ordered Stop 02/01/212129 aspirin, enteric coated 81 mg tab(s) 81 mg ORAL DAILY Given, 02/02 90602/01/212125 -- 02/01/212129 heparin 5,000 Units injection (Medical Risk Categories) 5,000 Units SUBCUTANEOUS EVERY 12 HOURS Given, 08/02 0902/01/212125 -- 02/01/212129 activity - mobilize patient (nh,oh) VTE Prophylaxis: VTE prophylaxis appropriate Disposition: Home Plan of care discussed with: Patient SIGNATURE: Candido sauceda MD PATIENT NAME: Smita Goff DATE: February 02, 2021 TIME: 2:36 PM etx [id number] [facility] documented as of this encounter (statuses as of 09/21/2022) [facility]08-02-2021 History of Past illness Narrative* Problem Noted Date Resolved Date Unstable angina 02/02/2021 02/04/2021 Chest pain 02/01/2021 02/04/2021 documented as of this encounter (statuses as of 09/22/2022) [facility]08-02-2021 NoteHNO ID: [id number] Author: Marnie Basurto RN Service: Care Management Author Type: Registered Nurse Type: Care Mgt Progress Note Filed: 02/02/2021 9:27 AM Note Text: CARE MANAGEMENT PROGRESS NOTE SERVICE DATE: 02/02/2021 SERVICE TIME: 9:26 AM LOS: 0 days This patient has been screened for Care Management Transitional Planning Services. At this time, it does not appear this patient will require transition planning services. Should this change, and the patient require transition planning services during this admission, please call [phone]. 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 [address] Status Reason Specialty Diagnoses / Procedures Referre d By Contact Referred To Contact Closed Diagnoses Post-menopausal Procedures BONE DENSITY AXIAL (HIP, PELVIS, SPINE) Diana Thomason MD [address] [facility] [address] [place] [id number] Status Reason Specialty Diagnoses / Procedures Referred By Contact Referred To Contact Open General Surgery Diagnoses Epigastric pain Gastroesophageal reflux disease without esophagitis Diana Thomason MD [address] [place] [id number] Mario Calabrese, [address] [facility] [place] [address] [place] [address] Status Reason Specialty Diagnoses / Procedures Re ferred By Contact Referred To Contact New Request Diagnoses Pre-operative cardiovascular examination Procedures ECG Denis Bass, DO [address] [facility] [address] [place] [id number] History of Present Illness * Diana Thomason MD - 09/12/2018 9:30 AM EDT Chief Complaint Patient presents with Results Menopause Thyroid Problem Hypercholesterol Atherosclerosis HPI: Regarding Hypertension: Smita is a 73 y.o. female who comes in today to follow up on HTN. Her HTN is chronic and controlled. Since her last visit, she reports that she has been checking her blood pressures. Her blood pressures have typically been normal. She has not noted any side effects. Shortness of Breath: No Chest Pain: No Palpitations: No Edema: No Other CV risk factors include: age > 55 (female), hypertension and known CAD Her hypertension severity is moderate due to the above factors, comorbities and degree of intervention necessary. Regarding Hypothyroidism: She presents to review her labs for her hypothyroidism. These reveal that her medication dose does not need to be adjusted at this time. Her TSH is in the normal range and her Free T4 is also normal. Lab Results Component Value Date TSH 5.535 (H) 09/04/2018 She denies any symptoms associated with hyperthyroidism. No tachycardia, diarrhea, heat intolerance, tremor, etc. She denies any symptoms associated with hypothyroidism: constipation, dry skin, hair loss. She states she has been taking her medication as prescribed on an empty stomach in the morning without missing doses. Regarding Hyperlipidemia: Smita comes in today to follow up on chronic hyperlipidemia. This condition has been under good control. Pt reports that she has been compliant with her medications. Pt denies side effects from medication including myalgias, weakness or joint pain. Alleviating factors include: simvastatin Exacerbating factors include:none Other significant medical conditions include: see problem list Lab Results Component Value Date CHOLESTEROL 167 09/04/2018 TRIG 83 09/04/2018 HDL 68 (H) 09/04/2018 LDLCALC 82 09/04/2018 Lab Results Component Value Date ALT 19 09/04/2018 AST 30 09/04/2018 GGT 9 06/19/1999 ALKPHOS 51 09/04/2018 BILITOTAL 0.6 09/04/2018 BILIDIRECT 0.1 09/04/2018 Her hyperlipidemia severity is moderate due to the above factors. [place]: on estradiol pill and cream, working well for her, she has a pessary for which she has to use the cream. ROS: Nurse Note: Review of Systems Constitutional: Negative for fatigue, fever and unexpected weight change. HENT: Negative for congestion and ear pain. Eyes: Negative for pain and visual disturbance. Respiratory: Negative for cough and shortness of breath. Cardiovascular: Negative for chest pain and palpitations. Gastrointestinal: Negative for abdominal pain, constipation, diarrhea and nausea. Genitourinary: Negative for difficulty urinating and dysuria. Musculoskeletal: Negative for arthralgias and myalgias. Skin: Negative for rash and wound. Neurological: Negative for dizziness and headaches. All other systems reviewed and are negative. Nursing Assessment: Physical Exam Past medical/family/social history: reviewed and updated, see documented in patient's chart. Physical Exam: Blood pressure 135/72, pulse 52, weight 44.8 kg (98 lb 12.8 oz). Body mass index is 19.14 kg/m . Physical Exam Constitutional: She is oriented to person, place, and time. Very thin HENT: Head: Normocephalic and atraumatic. Eyes: Pupils are equal, round, and reactive to light. Neck: Normal range of motion. Neck supple. Cardiovascular: Normal rate, regular rhythm and normal heart sounds. Pulmonary/Chest: Effort normal and breath sounds normal. Abdominal: Soft. Neurological: She is alert and oriented to person, place, and time. Skin: Skin is warm and dry. Psychiatric: Mood and affect normal. Assessment/Plan: 1. Essential hypertension Chronic stable, continue same therapy - lisinopril 10 MG Tab tablet; Take 1.5 tablets by mouth daily. Dispense: 90 tablet; Refill: 1 - COMPREHENSIVE METABOLIC PANEL; Future - CBC, EDIF, PLATELET; Future - LIPID PANEL W CALCULATED LDL; Future 2. Atherosclerosis of coronary artery bypass graft of [place] heart without angina pectoris Chronic stable, continue same therapy - lisinopril 10 MG Tab tablet; Take 1.5 tablets by mouth daily. Dispense: 90 tablet; Refill: 1 - nitroGLYCERIN 0.4 MG tablet SL; Place 1 tablet under tongue every 5 minutes as needed for Chest pain. max = 3 doses. If CP persists after 1st dose, call 911 Dispense: 25 tablet; Refill: 0 - simvastatin 40 MG Tab; Take 1 tablet by mouth daily. Dispense: 90 tablet; Refill: 1 - COMPREHENSIVE METABOLIC PANEL; Future - CBC, EDIF, PLATELET; Future - LIPID PANEL W CALCULATED LDL; Future 3. Acquired hypothyroidism Chronic stable, continue same therapy - levothyroxine 25 MCG Tab tablet; Take 1 tablet by mouth daily. Dispense: 90 tablet; Refill: 1 - TSH; Future - T4 FREE; Future 4. Pure hypercholesterolemia Chronic stable, continue same therapy - simvastatin 40 MG Tab; Take 1 tablet by mouth daily. Dispense: 90 tablet; Refill: 1 - COMPREHENSIVE METABOLIC PANEL; Future - LIPID PANEL W CALCULATED LDL; Future 5. Postmenopausal atrophic vaginitis Chronic stable, continue same therapy - estradiol 0.1 MG/GM cream; Insert 0.1 applications vaginally once a week. Dispense: 1 Tube; Refill: 0 - estradiol 0.5 MG Tab; Take 1 tablet by mouth daily. Dispense: 90 tablet; Refill: 1 6. Post-menopausal update - BONE DENSITY AXIAL (HIP, PELVIS, SPINE); Future Orders and follow up as documented in patient record; Patient was advised to call with any questions or concerns. If symptoms worsen patient was advised to follow up in our office or the Emergency Dept. Benefits, Risks, Contraindications, and Complications of recommended treatments were explained the patient understands and agrees to proceed with plan. Diana Thomason MD 09/12/2018 * Taylor Villanueva LPN - 09/12/2018 9:30 AM EDT Nurse Note: Review of Systems Constitutional: Negative for fatigue, fever and unexpected weight change. HENT: Negative for congestion and ear pain. Eyes: Negative for pain and visual disturbance. Respiratory: Negative for cough and shortness of breath. Cardiovascular: Negative for chest pain and palpitations. Gastrointestinal: Negative for abdominal pain, constipation, diarrhea and nausea. Genitourinary: Negative for difficulty urinating and dysuria. Musculoskeletal: Negative for arthralgias and myalgias. Skin: Negative for rash and wound. Neurological: Negative for dizziness and headaches. All other systems reviewed and are negative. Nursing Assessment: Physical Exam documented in this encounter* Leah Rodgers APRN-[facility] - 10/26/2018 9:00 AM EDT Chief Complaint Patient presents with Abdominal Pain Started last tuesday feels like she has flu HPI: Flu symptoms with abdominal pain: started two weeks ago on Tuesday, suddenly started hurting in herchest, stomach, arms, legs and neck, since then has felt pretty weak, also had fevers and chills, denies cough and congestion, still feels worn down and naseated, after she eats she gets RUQ pain that is crampy in nature, this pain comes and goes throughout the day, has no appetite, has lost two pounds since her last visit one month ago, does have epigastric pain, chest pressure, frequently burping, indigestion, has been taking some tums for symptom relief and it does help, did have an ultrasound of the RUQ and HIDA scan in 2016 which came back normal. She chronically uses Ibuprofen for arthritis, 400mg 2-3 times a day for years. Regarding Hypertension: Smita is a 73 y.o. female who comes in today to follow up on HTN. Her HTN is chronic and uncontrolled. Since her last visit, she reports that she has been checking her blood pressures. Her blood pressures have typically been abnormal at home (160s/70s-80s) which she has been worried about. She has noted some side effects. Shortness of Breath: Yes Chest Pain: Yes Palpitations: No Edema: No Other CV risk factors include: age > 55 (female) and hypertension, s/p CABG Her hypertension severity is moderate due to the above factors, comorbities and degree of intervention necessary. ROS: Constitutional: Positive for fatigue and fever. Negative for unexpected weight change. HENT: Negative for congestion and ear pain. Eyes: Negative for pain and visual disturbance. Respiratory: Negative for cough and shortness of breath. Cardiovascular: Negative for chest pain and palpitations. Gastrointestinal: Positive for abdominal pain and constipation. Negative for diarrhea and nausea. Genitourinary: Negative for difficulty urinating and dysuria. Musculoskeletal: Positive for arthralgias, myalgias and neck pain. Skin: Negative for rash and wound. Neurological: Negative for dizziness and headaches. All other systems reviewed and are negative. Past medical/family/social history: reviewed and updated, see documented in patient's chart. Physical Exam: Blood pressure 136/74, pulse 60, temperature 98.1 F (36.7 C), height 1.53 m (5' 0.24 ), weight 43.5kg (96 lb). Body mass index is 18.6 kg/m . Physical Exam Constitutional: She is oriented to person, place, and time and well-developed, well-nourished, and in no distress. HENT: Head: Normocephalic and atraumatic. Eyes: Pupils are equal, round, and reactive to light. Conjunctivae and EOM are normal. Neck: Normal range of motion. Neck supple. Cardiovascular: Normal rate, regular rhythm and normal heart sounds. No murmur heard. Pulmonary/Chest: Effort normal and breath sounds normal. Abdominal: Bowel sounds are hypoactive. There is tenderness in the epigastric area. Neurological: She is alert and oriented to person, place, and time. Skin: Skin is warm and dry. Psychiatric: Mood and affect normal. Assessment/Plan: 1. Chest pain, unspecified type EKG shows previous ID, no acute episode. - MS ELECTROCARDIOGRAM, COMPLETE 2. Epigastric pain Suspect gastritis, start omeprazole trial for one month, instructed to avoid NSAIDs, coffee, chocolate, and other stomach irritants, will consider GI referral if still symptomatic at follow up. - omeprazole [address] capsule; Take 1 capsule by mouth daily. Dispense: 30 capsule; Refill: 1 3. Essential hypertension Start low dose amlodipine. - amLODIPine 2.5 MG Tab tablet; Take 1 tablet by mouth daily. Dispense: 30 tablet; Refill: 1 40 minutes was spent face to face with patient. Greater than 50% was spent counseling on care management as documented. Patient questions were answered to her satisfaction. Orders and follow up as documented in patient record; We reviewed diet, exercise and weight control; We reviewed medications and possible side effects. All questions were answered; Patient was advised to call with any questions or concerns. If symptoms worsen patient was advised to follow up in our office or the Emergency Dept. Benefits, Risks, Contraindications, and Complications of recommended treatments were explained the patient understands and agrees to proceed with plan. ZACHARY Merrill 10/26/2018 * Philippe Valadez - 10/26/2018 9:00 AM EDT Nurse Note: Review of Systems Constitutional: Positive for fatigue and fever. Negative for unexpected weight change. HENT: Negative for congestion and ear pain. Eyes: Negative for pain and visual disturbance. Respiratory: Negative for cough and shortness of breath. Cardiovascular: Negative for chest pain and palpitations. Gastrointestinal: Positive for abdominal pain and constipation. Negative for diarrhea and nausea. Genitourinary: Negative for difficulty urinating and dysuria. Musculoskeletal: Positive for arthralgias, myalgias and neck pain. Skin: Negative for rash and wound. Neurological: Negative for dizziness and headaches. All other systems reviewed and are negative. Nursing Assessment: Physical Exam documented in this encounter* Diana Thomason MD - 11/23/2018 8:15 AM EDT Chief Complaint Patient presents with GI Problem gastritis HPI: GERD: being on medicine has helped a lot with her symptoms, she has modified her diet, stopped NSAIDS, no tea, she cut caffeine and high acid foods, bland diet. She is still refluxing and getting symptoms in the back of her throat. HTN: chronic and stable, doing better with addition of amlodipine, no more chest pain and feeling better. ROS: Nurse Note: Review of Systems Constitutional: Positive for fatigue. Negative for fever and unexpected weight change. HENT: Negative for congestion and ear pain. Eyes: Negative for pain and visual disturbance. Respiratory: Negative for cough and shortness of breath. Cardiovascular: Negative for chest pain and palpitations. Gastrointestinal: Positive for abdominal pain and constipation. Negative for diarrhea and nausea. Genitourinary: Negative for difficulty urinating and dysuria. Musculoskeletal: Positive for myalgias. Negative for arthralgias. Skin: Negative for rash and wound. Neurological: Positive for headaches. Negative for dizziness. All other systems reviewed and are negative. Nursing Assessment: Physical Exam Past medical/family/social history: reviewed and updated, see documented in patient's chart. Physical Exam: Blood pressure 120/67, pulse 64, height 1.537 m (5' 0.5 ), weight 43.5 kg (96 lb). Body mass index is 18.44 kg/m . Physical Exam Constitutional: She is oriented to person, place, and time. Very thin HENT: Head: Normocephalic and atraumatic. Eyes: Pupils are equal, round, and reactive to light. Neck: Normal range of motion. Neck supple. Cardiovascular: Normal rate, regular rhythm and normal heart sounds. Pulmonary/Chest: Effort normal and breath sounds normal. Abdominal: Soft. Neurological: She is alert and oriented to person, place, and time. Skin: Skin is warm and dry. Psychiatric: Mood and affect normal. Assessment/Plan: 1. Epigastric pain Refer for further evaluation - AMB REFERRAL TO GENERAL SURGERY 2. Right upper quadrant pain As above - omeprazole (PRILOSEC) [address] capsule; Take 1 capsule by mouth 2 times daily. Dispense: 60 capsule; Refill: 1 - sucralfate 1 g Tab; Take 1 tablet by mouth every 6 hours. Dispense: 60 tablet; Refill: 3 3. Gastroesophageal reflux disease without esophagitis As above - AMB REFERRAL TO GENERAL SURGERY 4. Essential hypertension Chronic stable, continue same therapy - amLODIPine 2.5 MG Tab tablet; Take 1 tablet by mouth daily. Dispense: 90 tablet; Refill: 1 5. Postmenopausal atrophic vaginitis Chronic stable, continue same therapy - estradiol 0.1 MG/GM cream; Insert 0.1 applications vaginally once a week. Dispense: 1 Tube; Refill: 3 Orders and follow up as documented in patient record; Patient was advised to call with any questions or concerns. If symptoms worsen patient was advised to follow up in our office or the Emergency Dept. Benefits, Risks, Contraindications, and Complications of recommended treatments were explained the patient understands and agrees to proceed with plan. Diana Thomason MD 11/23/2018 * Philippe Valadez - 11/23/2018 8:15 AM EDT Nurse Note: Review of Systems Constitutional: Positive for fatigue. Negative for fever and unexpected weight change. HENT: Negative for congestion and ear pain. Eyes: Negative for pain and visual disturbance. Respiratory: Negative for cough and shortness of breath. Cardiovascular: Negative for chest pain and palpitations. Gastrointestinal: Positive for abdominal pain and constipation. Negative for diarrhea and nausea. Genitourinary: Negative for difficulty urinating and dysuria. Musculoskeletal: Positive for myalgias. Negative for arthralgias. Skin: Negative for rash and wound. Neurological: Positive for headaches. Negative for dizziness. All other systems reviewed and are negative. Nursing Assessment: Physical Exam documented in this encounter* Denis Bass DO - 01/08/2019 9:30 AM EDT Chief Complaint Preop cardiovascular exam Pertinent cardiac diagnoses Status post AUGUSTINE LAD 1998, moderate RCA disease 2009 Negative SPECT Cardiolite 2017 History of Raynaud's disease Hypertension Family history CAD HPI Smita Goff is a 73 y.o. female seen by [facility] cardiology today for preop cardiovascular exam. In 1998 she underwent left internal mammary grafting to the left anterior descending after coronarystent restenosis. Her last angiographic assessment was in 2009 that demonstrated a patent bypass graft conduit with moderate disease in the right coronary artery. Fractional flow reserve assessment at that time was unrevealing. Last stress test 2017 Stress ECG Conclusion: Normal exercise stress ECG with no ECG changes consistent with ischemia. HR Response to stress: normal BP response to stress: hypertensive The patient experienced chest pain. The test was terminated due to fatigue. An adequate level of stress was achieved. 19 sec recovery ecg normal Exercise Protocol: notes Total Exercise Time The patient exercised for a total of 04:00 min using the Standard Buzz exercise protocol, achieving stage 2 and a max METs of 5.8. Resting ECG NSR, pt rated CP at 8/10 at peak exercise. CP decreased to 3/[address] Galdamez updated regarding CP. Baseline ECG: Normal sinus rhythm. baseline artifact Stress ECG : ST response to stress; unchanged from baseline ECG. Hemodynamics REST STRESS RECOVERY SBP 150 mmHg 211 mmHg 168 mmHg DBP 98 mmHg 103 mmHg 90 mmHg HR 73 bpm 131 bpm 61 bpm %MPHR 86 % Imaging Protocol: This was a gated SPECT myocardial perfusion imaging study. A one day stress-rest imaging protocol was followed using Tc-99m tetrofosmin ([employer]) injected intravenously. For the rest portion of the study, 21.7 mCi of the radiopharmaceutical was administered at 10/26/2016 09:50:21. Rest imaging was performed at 10:50:00. For the stress portion of the study, 7.5 mCi was administered at 10/26/2016 08:26:25. Stress imaging was performed at 09:30:00. Perfusion Interpretation: There was a small, fixed defect in the mid anterior, apical anterior segment(s). The extent of this perfusion defect was moderate. Wall Motion Interpretation: The patient's calculated post stress LVEF was 69%. Gated imaging under post-stress conditions demonstrated mild hypokinesis of the basal inferior, mid inferior, apical septal segment(s). Nuclear Doctor Interpreted Study and Electronically signed at 10/26/2016 14:24:47 by: Silvia Galdamez M.D. Active physically, walks 1 1/2 miles a day with her dog, does yard work etc. Occasionally note somechest discomfort such as carrying objects and climbing stairs. She has nitroglycerin but hasn't taken. Metoprolol discontinued due to low blood pressure although recently placed on amlodipine for labile pressures. No signs or symptoms of congestive heart failure. Patient Active Problem List Diagnosis Atherosclerosis of coronary artery bypass graft without angina pectoris Body mass index (BMI) 19 or less, adult Disorder of bone, unspecified Essential hypertension Female bladder prolapse Hormone replacement therapy (postmenopausal) Hypothyroidism, unspecified Pain in unspecified joint Postmenopausal atrophic vaginitis Pure hypercholesterolemia Raynaud's disease Right upper quadrant pain Sciatica, right side Unspecified osteoarthritis, unspecified site Hepatitis Bradycardia, drug induced Pre-operative cardiovascular examination Chronic stable angina Family history of coronary artery disease S/P CABG x 1 Coronary stent occlusion Past Medical History: Diagnosis Date Atherosclerosis of coronary artery bypass graft without angina pectoris Body mass index (BMI) 19 or less, adult Disorder of bone, unspecified Essential (primary) hypertension Female bladder prolapse H/O bone density study 04/21/2015 Osteopenia H/O colonoscopy 03/20/2015 Dr. Goodson- Normal Hormone replacement therapy (postmenopausal) Hyperlipidemia NEC/NOS Hypothyroidism, unspecified Pain in unspecified joint Postmenopausal atrophic vaginitis Pure hypercholesterolemia Raynaud's syndrome Right upper quadrant pain Sciatica, right side Unspecified osteoarthritis, unspecified site Past Surgical History: Procedure Laterality Date EGD DIAGNOSTIC N/A 12/22/2018 Laterality: N/A; Surgeon: Dagoberto Gilbert DO; Location: [facility] ENDOSCOPY BUNIONECTOMY 08/2008 [facility] toe HEART SURGERY 1998 Bypass anterior descending SHOULDER SURGERY Left 1994 MASTECTOMY 1989 Double Mastectomy. 1 1/2 lb tumor (L) breast. Took both due to family hx KNEE SURGERY Right 1985 HYSTERECTOMY 1983 Partial REMOVAL CATARACT (PEM) TONSILLECTOMY As child (Not in a hospital admission) Scheduled medications Continuous Infusions PRN Medications Allergies Allergen Reactions Penicillins Hives Sensitivity Milk Protein Abdominal Discomfort Seasonal [*Seasonal] Runny Nose Social History Socioeconomic History Marital status: Spouse name: Not on file Number of children: Not on file Years of education: Not on file Highest education level: Not on file Occupational History Not on file Social Needs Financial resource strain: Not on file Food insecurity: Worry: Not on file Inability: Not on file Transportation needs: Medical: Not on file Non-medical: Not on file Tobacco Use Smoking status: Never Smoker Smokeless tobacco: Never Used Substance and Sexual Activity Alcohol use: No Drug use: No Sexual activity: Yes Lifestyle Physical activity: Days per week: Not on file Minutes per session: Not on file Stress: Not on file Relationships Social connections: Talks on phone: Not on file Gets together: Not on file Attends restorationist service: Not on file Active member of club or organization: Not on file Attends meetings of clubs or organizations: Not on file Relationship status: Not on file Intimate partner violence: Fear of current or ex partner: Not on file Emotionally abused: Not on file Physically abused: Not on file Forced sexual activity: Not on file Other Topics Concern Not on file Social History Narrative Not on file Review of System 10 systems reviewed, pertinent positives listed above Blood pressure 142/68, pulse 59, resp. rate 16, height 1.537 m (5' 0.5 ), weight 44.7 kg (98 lb 9.6oz), SpO2 99 %. Body mass index is 18.94 kg/m . Physical Exam General appearance - alert, well developed, well nourished,73 y.o.female with appropriate affect HEENT PERRLA, EOMI, no xanthelasma or icterus Neck - , No JVD or bruits. Carotid upstrokes brisk. No adenopathy or thyromegaly. Lungs - clear to auscultation, no wheezes, rales or rhonchi Heart - regular rate and regular rhythm, normal S1 and S2 , no significant murmurs, click rub or lift , Abdomen - soft, nontender, no organomegaly Extremities -no edema, clubbing or cyanosis. Neurologic cranial nerves II through XII intact Skin - normal coloration and turgor, no laxity Psych- appropriate mood, Musculoskeletal - no joint deformity, tendon xanthoma Lab Results: Lab Results Component Value Date SODIUM 129 (L) 06/19/1999 SODIUM 131 (L) 06/17/1999 SODIUM 133 06/16/1999 POTASSIUM 4.4 06/19/1999 POTASSIUM 3.9 06/18/1999 POTASSIUM 4.1 06/17/1999 MAGNESIUM 1.9 06/17/1999 MAGNESIUM 2.5 06/16/1999 MAGNESIUM 1.3 (L) 06/16/1999 CALCIUM 7.4 (L) 06/17/1999 CALCIUM 7.7 (L) 06/16/1999 CALCIUM 7.2 (L) 06/16/1999 CHLORIDE 96 06/19/1999 CHLORIDE 101 06/17/1999 CHLORIDE 105 06/16/1999 TP 7.0 09/04/2018 BUN 14 06/19/1999 BUN 11 06/18/1999 BUN 9 06/17/1999 CREATSERUM 0.70 06/19/1999 CREATSERUM 0.80 06/18/1999 CREATSERUM 0.70 06/17/1999 ALBUMIN 4.1 09/04/2018 BILITOTAL 0.6 09/04/2018 BILITOTAL 1.0 06/19/1999 BILITOTAL 0.9 06/08/1999 AST 30 09/04/2018 AST 24 06/19/1999 AST 29 06/17/1999 ALKPHOS 51 09/04/2018 ALKPHOS 43 06/19/1999 ALKPHOS 53 06/08/1999 CO2 23 06/19/1999 CO2 24 06/17/1999 CO2 25.4 06/16/1999 ALT 19 09/04/2018 ALT 12 06/19/1999 ALT 18 06/08/1999 GLUCOSE 78 06/19/1999 GLUCOSE 103 06/17/1999 GLUCOSE 122 (H) 06/16/1999 TROP 0.10 05/11/1999 Lab Results Component Value Date CHOLESTEROL 167 09/04/2018 CHOLESTEROL 169 06/08/1999 TRIG 83 09/04/2018 TRIG 202 06/08/1999 HDL 68 (H) 09/04/2018 HDL 57 06/08/1999 LDLCALC 82 09/04/2018 LDLCALC 72 06/08/1999 BLDL 17 09/04/2018 TCHHDLMANENT 2.46 09/04/2018 Lab Results Component Value Date PT 15.3 (H) 06/16/1999 PT 12.2 06/08/1999 INR 1.2 06/16/1999 INR 0.9 06/08/1999 PTT >180 (HH) 06/16/1999 PTT 27 06/08/1999 WBC 13.3 (H) 06/19/1999 WBC 11.5 (H) 06/17/1999 RBC 3.18 (L) 06/19/1999 RBC 3.75 (L) 06/17/1999 HGB 9.4 (L) 06/19/1999 HGB 11.3 (L) 06/17/1999 HCT 28.0 (L) 06/19/1999 HCT 33.3 (L) 06/17/1999 MCV 88.1 06/19/1999 MCV 88.9 06/17/1999 MEANCELHGCON 33.7 06/19/1999 MEANCELHGCON 33.8 06/17/1999 RBCDISTRIBU 12.7 06/19/1999 RBCDISTRIBU 13.1 06/17/1999 PLATELET 288 06/19/1999 PLATELET 210 06/17/1999 MPV 7.9 06/19/1999 MPV 8.0 06/17/1999 EOSINOPHILS 0.6 06/19/1999 EOSINOPHILS 0.2 06/16/1999 BASOPHILS 0.1 06/19/1999 BASOPHILS 0.2 06/16/1999 TSH 5.535 (H) 09/04/2018 TSH 2.940 05/11/1999 Assessment & Plan Chronic stable angina, no contraindications to surgery such as acute coronary syndrome, congestive heart failure, aortic stenosis or significant arrhythmias. Baseline ECG demonstrates sinus rhythm possible left atrial enlargement and otherwise unremarkable. Although ideally on beta stacy she seems to be doing well on this medical regimen and no changes recommended Denis Bass DO 01/08/2019 9:53 AM documented in this encounter* Jael Barker RN - 01/30/2019 9:30 AM EDT PAT- ADDITIONAL QUESTIONS VISION (glasses, contacts, or other impairments) Wears glasses HEARING AIDS OR ANY TROUBLE HEARING no DIFFICULTY SWALLOWING no DENTAL APPLIANCES OR PROBLEMS (dentures, partials, loose teeth, missing teeth, broken teeth, caps or crowns) no BETA STACY USE no STEROIDS IN THE PAST 2 YEARS no HISTORY OF BLOOD TRANSFUSION/REACTION no CULTURAL OR RELIGOUS BELIEFS THAT WILL AFFECT CARE no MEDICAL CLEARANCE, CARDIOLOGY CLEARANCE Has seen Dr Bass CONCERNS FOR PERSONAL SAFETY no ADVANCE DIRECTIVES Living Will and Health Care POA HISTORY OF BLOOD CLOTS no IF PATIENT HAS NOT BEEN DIAGNOSED WITH SLEEP APNEA PLEASE COMPLETE STOP-BANG STOP Do you SNORE loudly (louder than talking or loud enough to be heard through closed doors)? no Has anyone OBSERVED you stop breathing during your sleep? no Do you often feel TIRED, fatigued, or sleepy during daytime? no Do you have or are you being treated for high blood PRESSURE? yes BMI more than 35kg/m2? no AGE over 50 years old? yes NECK circumference > 16 inches (40 cm)? no GENDER: Male? no TOTAL SCORE 2 PT ACCEPTED REFERRAL Low risk High risk of EZ: Yes 5-8 Intermediate risk of EZ: Yes 3-4 Low risk of EZ: Yes 0-2 * See DEPARTMENT OF SURGERY AND ANESTHESIA REFERRAL FOR SLEEP STUDY AND/OR PULMONARY CONSULT paper form signed by patient in chart. Verified procedure and surgery date with patient. Reviewed pt history and medications with patient.Pt was given instructions for upcoming surgery and give opportunity to ask questions. Pt verbalizedunderstanding of instructions. Testing done per PAT guidelines. documented in this encounter* Diana García - 03/13/2019 9:30 AM EDT Nurse Note: Review of Systems Constitutional: Negative for appetite change, chills and fever. HENT: Negative for congestion, ear pain and sinus pain. Eyes: Negative for pain, redness and itching. Respiratory: Negative for cough, shortness of breath and wheezing. Cardiovascular: Negative for chest pain, palpitations and leg swelling. Gastrointestinal: Positive for abdominal pain, constipation and nausea. Negative for abdominal distention, diarrhea and vomiting. Endocrine: Negative for polyphagia and polyuria. Genitourinary: Negative for difficulty urinating, dysuria and frequency. Musculoskeletal: Positive for arthralgias. Negative for back pain and myalgias. Skin: Negative for rash and wound. Allergic/Immunologic: Negative. Neurological: Positive for headaches. Negative for dizziness and light-headedness. Psychiatric/Behavioral: Negative for sleep disturbance. The patient is not nervous/anxious. All other systems reviewed and are negative. Nursing Assessment: Physical Exam * Diana García - 03/13/2019 9:30 AM EDT Pt here today for 6 mo f/u and lab review. She c/o having abdominal pain; worsens after eating. Hadher gallbladder removed in Feb and states she feels some better but still having pain. * Diana Thomason MD - 03/13/2019 9:30 AM EDT Chief Complaint Patient presents with Lab Review Hypertension Hypothyroidism Hyperlipidemia Abdominal Pain HPI: Regarding Hypertension: Smita is a 74 y.o. female who comes in today to follow up on HTN. Her HTN is chronic and controlled. Since her last visit, she reports that she has been checking her blood pressures. Her blood pressures have typically been normal. She has not noted any side effects. Shortness of Breath: No Chest Pain: No Palpitations: No Edema: No Other CV risk factors include: age > 55 (female), hypertension and known CAD Her hypertension severity is moderate due to the above factors, comorbities and degree of intervention necessary. Regarding Hypothyroidism: She presents to review her labs for her hypothyroidism. These reveal that her medication dose does not need to be adjusted at this time. Her TSH is in the normal range and her Free T4 is also normal. Lab Results Component Value Date TSH 5.153 03/06/2019 She denies any symptoms associated with hyperthyroidism. No tachycardia, diarrhea, heat intolerance, tremor, etc. She denies any symptoms associated with hypothyroidism: constipation, dry skin, hair loss. She states she has been taking her medication as prescribed on an empty stomach in the morning without missing doses. Regarding Hyperlipidemia: Smita comes in today to follow up on chronic hyperlipidemia. This condition has been under good control. Pt reports that she has been compliant with her medications. Pt denies side effects from medication including myalgias, weakness or joint pain. Alleviating factors include: simvastatin Exacerbating factors include:none Other significant medical conditions include: see problem list Lab Results Component Value Date CHOLESTEROL 163 03/06/2019 TRIG 75 03/06/2019 HDL 66 (H) 03/06/2019 LDLCALC 82 03/06/2019 Lab Results Component Value Date ALT 15 03/06/2019 AST 23 03/06/2019 GGT 9 06/19/1999 ALKPHOS 57 03/06/2019 BILITOTAL 0.6 03/06/2019 BILIDIRECT 0.1 09/04/2018 Her hyperlipidemia severity is moderate due to the above factors. [place]: on estradiol pill and cream, working well for her, she has a pessary for which she has to use the cream. Hyponatremia: sodium level 129, chronic and ongoing, drinks a lot of water, Hiatal hernia: continues to have bloating and GI discomfort, can't tolerate PPIs due to sores in her mouth. ROS: Pt here today for 6 mo f/u and lab review. She c/o having abdominal pain; worsens after eating. Hadher gallbladder removed in Feb and states she feels some better but still having pain. Nurse Note: Review of Systems Constitutional: Negative for appetite change, chills and fever. HENT: Negative for congestion, ear pain and sinus pain. Eyes: Negative for pain, redness and itching. Respiratory: Negative for cough, shortness of breath and wheezing. Cardiovascular: Negative for chest pain, palpitations and leg swelling. Gastrointestinal: Positive for abdominal pain, constipation and nausea. Negative for abdominal distention, diarrhea and vomiting. Endocrine: Negative for polyphagia and polyuria. Genitourinary: Negative for difficulty urinating, dysuria and frequency. Musculoskeletal: Positive for arthralgias. Negative for back pain and myalgias. Skin: Negative for rash and wound. Allergic/Immunologic: Negative. Neurological: Positive for headaches. Negative for dizziness and light-headedness. Psychiatric/Behavioral: Negative for sleep disturbance. The patient is not nervous/anxious. All other systems reviewed and are negative. Nursing Assessment: Physical Exam Past medical/family/social history: reviewed and updated, see documented in patient's chart. Physical Exam: Blood pressure 119/70, pulse 54, resp. rate 16, weight 43.7 kg (96 lb 4.8 oz). Body mass index is 18.5 kg/m . Physical Exam Constitutional: She is oriented to person, place, and time. Very thin HENT: Head: Normocephalic and atraumatic. Eyes: Pupils are equal, round, and reactive to light. Neck: Normal range of motion. Neck supple. Cardiovascular: Normal rate, regular rhythm and normal heart sounds. Pulmonary/Chest: Effort normal and breath sounds normal. Abdominal: Soft. Neurological: She is alert and oriented to person, place, and time. Skin: Skin is warm and dry. Psychiatric: Mood and affect normal. Assessment/Plan: 1. Essential hypertension Chronic stable, continue same therapy - lisinopril 10 MG Tab tablet; Take 1.5 tablets by mouth daily. Dispense: 90 tablet; Refill: 0 2. Atherosclerosis of coronary artery bypass graft of [place] heart without angina pectoris Change med to rosuvastatin - rosuvastatin 20 MG Tab tablet; Take 1 tablet by mouth daily. Dispense: 90 tablet; Refill: 1 3. Acquired hypothyroidism Chronic stable, continue same therapy - levothyroxine 25 MCG Tab tablet; Take 1 tablet by mouth daily. Dispense: 90 tablet; Refill: 1 4. Pure hypercholesterolemia Change med - LIPID PANEL W CALCULATED LDL; Future - rosuvastatin 20 MG Tab tablet; Take 1 tablet by mouth daily. Dispense: 90 tablet; Refill: 1 - COMPREHENSIVE METABOLIC PANEL; Future 5. Hormone replacement therapy (postmenopausal) Chronic stable, continue same therapy 6. Hyponatremia Reduce water intake, liberalize salt intake - COMPREHENSIVE METABOLIC PANEL; Future 7. Postmenopausal atrophic vaginitis Chronic stable, continue same therapy - estradiol 0.1 MG/GM cream; Insert 0.1 applications vaginally once a week. Dispense: 1 Tube; Refill: 3 8. Hiatal hernia Start Zantac - ranitidine (ZANTAC) 150 MG Tab tablet; Take 1 tablet by mouth 2 times daily. Dispense: 60 tablet;Refill: 1 Orders and follow up as documented in patient record; Patient was advised to call with any questions or concerns. If symptoms worsen patient was advised to follow up in our office or the Emergency Dept. Benefits, Risks, Contraindications, and Complications of recommended treatments were explained the patient understands and agrees to proceed with plan. Diana Thomason MD 03/13/2019 documented in this encounter* Diana Thomason MD - 09/03/2019 9:30 AM EST Chief Complaint Patient presents with Results Hypertension Thyroid Problem Hyperlipidemia Menopause HPI: Regarding Hypertension: Smita is a 74 y.o. female who comes in today to follow up on HTN. Her HTN is chronic and controlled. Since her last visit, she reports that she has been checking her blood pressures. Her blood pressures have typically been normal. She has not noted any side effects. Shortness of Breath: No Chest Pain: No Palpitations: No Edema: No Other CV risk factors include: age > 55 (female), hypertension and known CAD Her hypertension severity is moderate due to the above factors, comorbities and degree of intervention necessary. Regarding Hypothyroidism: She presents to review her labs for her hypothyroidism. These reveal that her medication dose does not need to be adjusted at this time. Her TSH is in the normal range and her Free T4 is also normal. Lab Results Component Value Date TSH 5.153 03/06/2019 She denies any symptoms associated with hyperthyroidism. No tachycardia, diarrhea, heat intolerance, tremor, etc. She denies any symptoms associated with hypothyroidism: constipation, dry skin, hair loss. She states she has been taking her medication as prescribed on an empty stomach in the morning without missing doses. Regarding Hyperlipidemia: Smita comes in today to follow up on chronic hyperlipidemia. This condition has been under good control. Pt reports that she has been compliant with her medications. Pt denies side effects from medication including myalgias, weakness or joint pain. Alleviating factors include: rosuvastatin Exacerbating factors include:none Other significant medical conditions include: see problem list Lab Results Component Value Date CHOLESTEROL 133 08/27/2019 TRIG 74 08/27/2019 HDL 59 08/27/2019 LDLCALC 59 08/27/2019 Lab Results Component Value Date ALT 17 08/27/2019 AST 28 08/27/2019 GGT 9 06/19/1999 ALKPHOS 46 08/27/2019 BILITOTAL 0.5 08/27/2019 BILIDIRECT 0.1 09/04/2018 Her hyperlipidemia severity is moderate due to the above factors. [place]: on estradiol pill and cream, working well for her, she has a pessary for which she has to use the cream. Hyponatremia: sodium level 132, chronic and ongoing, drinks a lot of water, Hiatal hernia: continues to have bloating and GI discomfort, can't tolerate PPIs due to sores in her mouth. She is taking probiotic and that is helping her. ROS: Nurse Note: Review of Systems Constitutional: Negative for fatigue and fever. HENT: Negative for congestion, ear pain and sore throat. Eyes: Negative for pain and redness. Respiratory: Negative for cough and shortness of breath. Cardiovascular: Negative for chest pain and palpitations. Gastrointestinal: Negative for abdominal pain, constipation, diarrhea and nausea. Genitourinary: Negative for difficulty urinating and dysuria. Musculoskeletal: Negative for arthralgias and myalgias. Skin: Negative for rash and wound. Neurological: Negative for dizziness and headaches. All other systems reviewed and are negative. Past medical/family/social history: reviewed and updated, see documented in patient's chart. Physical Exam: Blood pressure 128/71, pulse 62, height 1.518 m (4' 11.75 ), weight 43.9 kg (96 lb 12.8 oz). Body mass index is 19.06 kg/m . Physical Exam Constitutional: She is oriented to person, place, and time. Very thin HENT: Head: Normocephalic and atraumatic. Eyes: Pupils are equal, round, and reactive to light. Neck: Normal range of motion. Neck supple. Cardiovascular: Normal rate, regular rhythm and normal heart sounds. Pulmonary/Chest: Effort normal and breath sounds normal. Abdominal: Soft. Neurological: She is alert and oriented to person, place, and time. Skin: Skin is warm and dry. Psychiatric: Mood and affect normal. Assessment/Plan: 1. Atherosclerosis of coronary artery bypass graft of [place] heart without angina pectoris Chronic stable, continue same therapy - rosuvastatin 20 MG tablet; Take 1 tablet by mouth daily. Dispense: 90 tablet; Refill: 1 - COMPREHENSIVE METABOLIC PANEL; Future - LIPID PANEL W CALCULATED LDL; Future - CBC, EDIF, PLATELET; Future 2. Pure hypercholesterolemia Chronic stable, continue same therapy - rosuvastatin 20 MG tablet; Take 1 tablet by mouth daily. Dispense: 90 tablet; Refill: 1 - COMPREHENSIVE METABOLIC PANEL; Future - LIPID PANEL W CALCULATED LDL; Future 3. Acquired hypothyroidism Chronic stable, continue same therapy - levothyroxine 25 MCG tablet; Take 1 tablet by mouth daily. Dispense: 90 tablet; Refill: 1 - TSH; Future - T4 FREE; Future 4. Postmenopausal atrophic vaginitis Chronic stable, continue same therapy - estradiol 0.5 MG tablet; Take 1 tablet by mouth daily. Dispense: 90 tablet; Refill: 1 5. Essential hypertension Chronic stable, continue same therapy - amLODIPine 2.5 MG tablet; Take 1 tablet by mouth daily. Dispense: 90 tablet; Refill: 1 - lisinopril 10 MG tablet; Take 1.5 tablets by mouth daily. Dispense: 135 tablet; Refill: 1 - COMPREHENSIVE METABOLIC PANEL; Future - LIPID PANEL W CALCULATED LDL; Future - CBC, EDIF, PLATELET; Future 6. Hyponatremia Chronic stable, continue same therapy - COMPREHENSIVE METABOLIC PANEL; Future Orders and follow up as documented in patient record; Patient was advised to call with any questions or concerns. If symptoms worsen patient was advised to follow up in our office or the Emergency Dept. Benefits, Risks, Contraindications, and Complications of recommended treatments were explained the patient understands and agrees to proceed with plan. Diana Thomason MD 09/03/2019 * Neris Hollins - 09/03/2019 9:30 AM EST Nurse Note: Review of Systems Constitutional: Negative for fatigue and fever. HENT: Negative for congestion, ear pain and sore throat. Eyes: Negative for pain and redness. Respiratory: Negative for cough and shortness of breath. Cardiovascular: Negative for chest pain and palpitations. Gastrointestinal: Negative for abdominal pain, constipation, diarrhea and nausea. Genitourinary: Negative for difficulty urinating and dysuria. Musculoskeletal: Negative for arthralgias and myalgias. Skin: Negative for rash and wound. Neurological: Negative for dizziness and headaches. All other systems reviewed and are negative. documented in this encounter* Diana Thomason MD - 03/03/2020 9:30 AM EDT Chief Complaint Patient presents with Results Hypertension Hyperlipidemia Coronary Atherosclerosis Thyroid Problem HPI: Regarding Hypertension: Smita is a 74 y.o. female who comes in today to follow up on HTN. Her HTN is chronic and controlled. Since her last visit, she reports that she has been checking her blood pressures. Her blood pressures have typically been normal. She has not noted any side effects. Shortness of Breath: No Chest Pain: No Palpitations: No Edema: No Other CV risk factors include: age > 55 (female), hypertension and known CAD Her hypertension severity is moderate due to the above factors, comorbities and degree of intervention necessary. Regarding Hypothyroidism: She presents to review her labs for her hypothyroidism. These reveal that her medication dose does not need to be adjusted at this time. Her TSH is in the normal range and her Free T4 is also normal. See labs: 02/25/2020 She denies any symptoms associated with hyperthyroidism. No tachycardia, diarrhea, heat intolerance, tremor, etc. She denies any symptoms associated with hypothyroidism: constipation, dry skin, hair loss. She states she has been taking her medication as prescribed on an empty stomach in the morning without missing doses. Regarding Hyperlipidemia: Smita comes in today to follow up on chronic hyperlipidemia. This condition has been under good control. Pt reports that she has been compliant with her medications. Pt denies side effects from medication including myalgias, weakness or joint pain. Alleviating factors include: rosuvastatin Exacerbating factors include:none Other significant medical conditions include: see problem list See labs: 02/25/2020 Her hyperlipidemia severity is moderate due to the above factors. [place]: on estradiol pill and cream, working well for her, she has a pessary for which she has to use the cream. Hyponatremia: sodium level 133, chronic and ongoing, drinks a lot of water, Hiatal hernia: continues to have bloating and GI discomfort, can't tolerate PPIs due to sores in her mouth. She is taking probiotic and that is helping her. ROS: Nurse Note: Review of Systems Constitutional: Negative for fatigue and fever. HENT: Negative for congestion, ear pain and sore throat. Eyes: Negative for pain and redness. Respiratory: Negative for cough and shortness of breath. Cardiovascular: Negative for chest pain and palpitations. Gastrointestinal: Negative for abdominal pain, constipation, diarrhea, nausea and vomiting. Genitourinary: Negative for difficulty urinating and dysuria. Musculoskeletal: Negative for arthralgias and myalgias. Skin: Negative for rash and wound. Neurological: Negative for dizziness and headaches. All other systems reviewed and are negative. Past medical/family/social history: reviewed and updated, see documented in patient's chart. Physical Exam: BP 136/74 Pulse 59 Ht 1.518 m (4' 11.75 ) Wt 43.3 kg (95 lb 6.4 oz) BMI 18.79 kg/m Smoking Status Never Smoker Body mass index is 18.79 kg/m . Physical Exam Constitutional: She is oriented to person, place, and time. Very thin HENT: Head: Normocephalic and atraumatic. Eyes: Pupils are equal, round, and reactive to light. Neck: Normal range of motion. Neck supple. Cardiovascular: Normal rate, regular rhythm and normal heart sounds. Pulmonary/Chest: Effort normal and breath sounds normal. Abdominal: Soft. Neurological: She is alert and oriented to person, place, and time. Skin: Skin is warm and dry. Psychiatric: Mood and affect normal. Assessment/Plan: 1. Essential hypertension Chronic stable, continue same therapy - amLODIPine 2.5 MG tablet; Take 1 tablet by mouth daily. Dispense: 90 tablet; Refill: 1 - lisinopril 10 MG tablet; Take 1.5 tablets by mouth daily. Dispense: 135 tablet; Refill: 1 2. Atherosclerosis of coronary artery bypass graft of [place] heart without angina pectoris Chronic stable, continue same therapy - nitroGLYCERIN 0.4 MG tablet SL; Place 1 tablet under tongue every 5 minutes as needed for Chest pain. max = 3 doses. If CP persists after 1st dose, call 911 Dispense: 25 tablet; Refill: 0 - rosuvastatin 20 MG tablet; Take 1 tablet by mouth daily. Dispense: 90 tablet; Refill: 1 3. Postmenopausal atrophic vaginitis Has not tolerated weaning off of medication in the past, continue same - estradiol 0.1 MG/GM cream; Insert 0.1 applications vaginally once a week. Dispense: 1 Tube; Refill: 3 - estradiol 0.5 MG tablet; Take 1 tablet by mouth daily. Dispense: 90 tablet; Refill: 1 4. Acquired hypothyroidism Mildly abnormal TSH, will recheck, reviewed appropriate dosing to optimize absorption - levothyroxine 25 MCG tablet; Take 1 tablet by mouth daily. Dispense: 90 tablet; Refill: 1 - T4 FREE - TSH 5. Pure hypercholesterolemia Chronic stable, continue same therapy - rosuvastatin 20 MG tablet; Take 1 tablet by mouth daily. Dispense: 90 tablet; Refill: 1 - HEPATIC FUNCTION PANEL - LIPID PANEL W CALCULATED LDL Orders and follow up as documented in patient record; Patient was advised to call with any questions or concerns. If symptoms worsen patient was advised to follow up in our office or the Emergency Dept. Benefits, Risks, Contraindications, and Complications of recommended treatments were explained the patient understands and agrees to proceed with plan. Diana Thomason MD 03/03/2020 * Eliseo Lucia - 03/03/2020 9:30 AM EDT Nurse Note: Review of Systems Constitutional: Negative for fatigue and fever. HENT: Negative for congestion, ear pain and sore throat. Eyes: Negative for pain and redness. Respiratory: Negative for cough and shortness of breath. Cardiovascular: Negative for chest pain and palpitations. Gastrointestinal: Negative for abdominal pain, constipation, diarrhea, nausea and vomiting. Genitourinary: Negative for difficulty urinating and dysuria. Musculoskeletal: Negative for arthralgias and myalgias. Skin: Negative for rash and wound. Neurological: Negative for dizziness and headaches. All other systems reviewed and are negative. documented in this encounter* Jael Barker RN - 01/30/2019 9:30 AM EDT PAT- ADDITIONAL QUESTIONS VISION (glasses, contacts, or other impairments) Wears glasses HEARING AIDS OR ANY TROUBLE HEARING no DIFFICULTY SWALLOWING no DENTAL APPLIANCES OR PROBLEMS (dentures, partials, loose teeth, missing teeth, broken teeth, caps or crowns) no BETA STACY USE no STEROIDS IN THE PAST 2 YEARS no HISTORY OF BLOOD TRANSFUSION/REACTION no CULTURAL OR RELIGOUS BELIEFS THAT WILL AFFECT CARE no MEDICAL CLEARANCE, CARDIOLOGY CLEARANCE Has seen Dr Bass CONCERNS FOR PERSONAL SAFETY no ADVANCE DIRECTIVES Living Will and Health Care POA HISTORY OF BLOOD CLOTS no IF PATIENT HAS NOT BEEN DIAGNOSED WITH SLEEP APNEA PLEASE COMPLETE STOP-BANG STOP Do you SNORE loudly (louder than talking or loud enough to be heard through closed doors)? no Has anyone OBSERVED you stop breathing during your sleep? no Do you often feel TIRED, fatigued, or sleepy during daytime? no Do you have or are you being treated for high blood PRESSURE? yes BMI more than 35kg/m2? no AGE over 50 years old? yes NECK circumference > 16 inches (40 cm)? no GENDER: Male? no TOTAL SCORE 2 PT ACCEPTED REFERRAL Low risk High risk of EZ: Yes 5-8 Intermediate risk of EZ: Yes 3-4 Low risk of EZ: Yes 0-2 * See DEPARTMENT OF SURGERY AND ANESTHESIA REFERRAL FOR SLEEP STUDY AND/OR PULMONARY CONSULT paper form signed by patient in chart. Verified procedure and surgery date with patient. Reviewed pt history and medications with patient.Pt was given instructions for upcoming surgery and give opportunity to ask questions. Pt verbalizedunderstanding of instructions. Testing done per PAT guidelines. documented in this encounter Assessments Diagnosis Essential hypertension- Primary Unspecified essential hypertension Atherosclerosis of coronary artery bypass graft of [place] heart without angina pectoris Acquired hypothyroidism Unspecified hypothyroidism Pure hypercholesterolemia Postmenopausal atrophic vaginitis Post-menopausal Asymptomatic postmenopausal status (age-related) (natural) Diagnosis Post-menopausal Asymptomatic postmenopausal status (age-related) (natural) Diagnosis Chest pain, unspecified type- Primary Epigastric pain Abdominal pain, epigastric Essential hypertension Unspecified essential hypertension Diagnosis Right upper quadrant pain- Primary Abdominal pain, right upper quadrant Diagnosis Epigastric pain- Primary Abdominal pain, epigastric Right upper quadrant pain Abdominal pain, right upper quadrant Gastroesophageal reflux disease without esophagitis Esophageal reflux Essential hypertension Unspecified essential hypertension Postmenopausal atrophic vaginitis Diagnosis Pre-operative cardiovascular examination- Primary Chronic stable angina Essential hypertension Unspecified essential hypertension Family history of coronary artery disease Family history of ischemic heart disease S/P CABG x 1 Postsurgical aortocoronary bypass status Coronary stent occlusion, sequela Diagnosis Preop testing- Primary Preoperative examination, unspecified Abdominal pain, right upper quadrant Essential hypertension Unspecified essential hypertension Diagnosis Essential hypertension- Primary Unspecified essential hypertension Atherosclerosis of coronary artery bypass graft of [place] heart without angina pectoris Acquired hypothyroidism Unspecified hypothyroidism Pure hypercholesterolemia Hormone replacement therapy (postmenopausal) Need for prophylactic hormone replacement therapy (postmenopausal) Hyponatremia Hyposmolality and/or hyponatremia Postmenopausal atrophic vaginitis Hiatal hernia Diaphragmatic hernia without mention of obstruction or gangrene Diagnosis Atherosclerosis of coronary artery bypass graft of [place] heart without angina pectoris Pure hypercholesterolemia Acquired hypothyroidism Unspecified hypothyroidism Postmenopausal atrophic vaginitis Essential hypertension Unspecified essential hypertension Hyponatremia Hyposmolality and/or hyponatremia Diagnosis Essential hypertension Unspecified essential hypertension Atherosclerosis of coronary artery bypass graft of [place] heart without angina pectoris Postmenopausal atrophic vaginitis Acquired hypothyroidism Unspecified hypothyroidism Pure hypercholesterolemia Diagnosis Abdominal pain, right upper quadrant Right upper quadrant abdominal pain Abdominal pain, right upper quadrant Diagnosis Essential hypertension- Primary Unspecified essential hypertension Diagnosis Postmenopausal atrophic vaginitis Instructions * Patient Instructions* Leah Rodgers, JASON-ORE MINER BLASTING - 10/26/2018 9:00 AM EDT Please start your new medicines and follow up in one month. Get plenty of rest, increase fluids, and avoid stomach irritants such as coffee, alcohol, acidic foods, chocolate, and NSAIDs such as Ibuprofen for at least a month. Understanding Gastritis Gastritis is a painful inflammation of the stomach lining. It has a number of causes. Gastritis andits symptoms can be relieved with treatment. Work with your healthcare provider to find ways to treat your symptoms. The Stomach To digest the food you eat, your stomach makes strong acids and enzymes. A healthy stomach has built-in defenses that protect its lining from damage by these acids and enzymes. When you have gastritis Acids may damage the stomach lining when the built-in defenses of the stomach don t function as they should. The stomach lining can then become inflamed. When this happens, it is called gastritis. Causes of gastritis Gastritis has many causes. They may include: Aspirin and anti-inflammatory medicines Tobacco use Alcohol use Helicobacter pylori (H. pylori) bacteria Trauma from injuries, stuart, or major surgery Critical illness or autoimmune disorders Common symptoms With gastritis, you may notice one or more of the following: A burning feeling in your upper belly Pain that happens after eating certain foods Gas or a bloated feeling in your stomach Frequent belching Nausea with or without vomiting Loss of appetite Feeling full quickly Fatigue Date Last Reviewed: 01/02/201619997883-2590 [employer]. [address] [place] [address]. All rights reserved. This information is not intended as a substitute for professional medical care. Always follow yourhealthcare professional's instructions. documented in this encounter* Patient Instructions* Rina Leon RN - 01/30/2019 9:30 AM EDT Thank you for choosing [facility]. Your surgery date is TuesdayFebruary 06 Please call [phone] For your convenience, please call (between 9AM and 2PM) one business day (Tuesday through Tuesday, excluding holidays) before your surgery to verify your arrival time. *Example: if your surgery is on Tuesday, please call on Tuesday. If a holiday falls on Tuesday and your surgery is , please call on Tuesday to verify your arrival time. If you do not call you will receive a call with your arrival time after 2pm. *Surgery times have a tendency to change due to emergencies or cancellations. You will be notified if your arrival time changes. At [facility]'s Surgery Department, we strive to make your surgery experience as accommodating and relaxed as possible. Occasionally, however, the surgery scheduled prior to yours may take longer than anticipated. As a result, your procedure may be delayed. We will do your best to keep you informed of delays. Feel free to ask your nurse or aide for updates. Patient Surgery Information If you have any questions concerning your surgery/procedure, please call the P.A.T. Coordinator, Tuesday through Tuesday, 8:00 am to 4:30 pm at [phone]. For surgical questions during evenings or weekends, please call [phone] and ask the ways operator to page the Nursing Furniture Duster. Discontinue any blood thinners such as Aspirin, Plavix, Coumadin, Eliquis as instructed by your physician. Stop any NSAIDs (Ibuprofen, Motrin, Aleve, Advil, etc.), fish oil, and other supplements 7 days before your surgery or as instructed by your physician. Tylenol or acetaminophen is ok to take within this time frame. Please refer to your medication list and follow any special instructions noted for those medicines. Check your blood sugar the morning of surgery (if you normally check your blood sugar). THINGS TO BRING WITH YOU THE MORNING OF SURGERY, if Applicable Crutches CPAP. Please bring machine, tubing and mask. Rescue Inhaler Careful attention to the following instructions will help ensure your comfort and reduce the possibility of complications. Instructions in preparation for the day of your surgery/procedure: 1. Do not eat or drink anything after midnight (this includes gum, mints, lozenges, and sips of water) before your surgery/procedure. Doing so may cause nausea or vomiting during the procedure, whichmay cause serious or fatal complications. 2. You may brush your teeth before coming to the hospital. Try not to swallow any water when brushing your teeth. 3. Bathe or shower the evening before or the day of your surgery/procedure UNLESS otherwise instructed by your physician. 4. Avoid using make-up (cosmetics), aerosol sprays, perfumes, skin creams or lotions. Any make-up, nail norwegian and lipstick will need to be removed before surgery. Hospital staff needs to see your natural coloring to assess and monitor any changes. Do not shave body hair 48-hours prior to your procedure. Men may shave facial hair as usual. 5. Wear clothing that is comfortable and easy to put on after surgery. 6. Bring a responsible adult with you. YOU ARE NOT PERMITTED TO DRIVE HOME FOLLOWING YOUR SURGERY/PROCEDURE. 7. Leave all valuables and large amounts of money at home. Do not wear any jewelry including fingerrings, navel rings, earrings, toe rings, tongue rings or any type of body piercing jewelry. For your safety, you must remove all jewelry items prior to your procedure. 8. Dentures, hearing aids, contact lenses and glasses cannot be worn during your procedure. If you use any of these items, please bring their cases with you for proper storage. [facility] will not be responsible for lost articles. 9. You will consult with anesthesia personnel the day of surgery. Anesthesia personnel will ask youimportant questions and explain the type of anesthesia you will be receiving, how it is administered, and the risks. You will have an opportunity to have all of your questions answered. 10. Two visitors may stay with you before and after surgery. For patient confidentiality and comfort, please limit your visitors to two (2) adults. We welcome and encourage parents of pediatric patients to remain here throughout the procedure. No small children will be permitted in the pre-operative or recovery area. 11. If you develop a cold, persistent cough, sore throat, fever or any other illness within two days of surgery, please notify your physician or tell the nurse as soon as you arrive at the hospital. If you experience any other health changes between your most recent visit to your surgeon and the day of the surgery, notify your physician. If you suspect you are , please notify your physician. Anesthesia and medications may be harmful to the developing fetus. 12. No alcohol 48-hours or illicit [id number] prior to your surgery. 13. Do not smoke after midnight the night before your procedure. If you are a smoker, our Surgery Department requests you quit or cut down at least 24 to 48 hours prior to your surgery/procedure. Youwill not be permitted to smoke at the hospital. You need to be aware that if you have risk factors for Obstructive Sleep Apnea, or have a sleep apnea diagnosis, and do not use your CPAP, you can be held as long as 4 hours after your procedure to ensure that your respiratory function is back to baseline. 14. Any legal documents should not be signed until 24 hours after sedation. 15. You will receive discharge instructions before leaving the hospital and copies of the information will be placed in a folder for you to take home. It is important for you, and anyone assisting with your care, to understand these instructions. 16. We will call you after your procedure to see how you are doing. Please call your doctor with any questions or concerns. DIRECTIONS: Park in the front main lot facing [address]. Enter through the front entrance and sign [facility]. Thank you for allowing us the privilege to care for you! Preventing Surgical Site Infections One risk of having surgery is an infection at the surgical site. The surgical site is any cut the surgeon makes in the skin to do the operation. Surgical site infections can range from minor to severe or even fatal. This sheet tells you more about surgical site infections, what hospitals are doing to prevent them, and how they are treated if they do occur. It also tells you what you can do to prevent these infections. What causes surgical site infections? Germs are everywhere. They re on your skin, in the air, and on things you touch. Many germs are good. Some are harmful. Surgical site infections occur when harmful germs enter your body through the incision in your skin. Some infections are caused by germs that are in the air or on objects. But most are caused by germs found on and in your own body. Who is at risk for surgical site infections? Anyone can have a surgical site infection. Your risk is greater if you: Are an older adult Have a weak immune system or other health conditions or illnesses such as diabetes Take certain medicines such as steroids Are a smoker Have certain types of operations, such as abdominal surgery Have poor nutrition Are very overweight If the operation lasts longer than 2 hours What are the symptoms of a surgical site infection? The infection usually starts with increased skin redness, pain, and swelling around the incision. Later you may notice a cloudy or greenish-yellow discharge from the incision and it may develop a foul odor. The incision may separate or open up. You are also likely to have a fever and may feel very ill. Symptoms can appear any time from hours to weeks after surgery. Implants such as an artificial kneeor hip can become infected at any time after the operation. How are surgical site infections treated? Surgical site infections are treated with antibiotics. The type of medicine you get will depend on the germ thought to be causing the infection. Most serious wound infections need local wound care, and in some cases, further surgery. An infected skin wound may be reopened and cleaned. Sometimes, deep wounds need to be packed with gauze that is changed often until the wound starts to heal from the inside out. Your healthcare provider will figure out the best care needed to treat your surgical site infection. If an infection occurs where an implant is placed, the implant may be removed. If you have an infection deeper in your body, you may need another operation to treat it. What hospitals do to prevent surgical site infections Many hospitals take these steps to help prevent surgical site infections: Handwashing. Before the operation, your surgeon and all operating room staff scrub their hands and arms with an antiseptic soap. Clean skin. The site where your incision is made is carefully cleaned with an antiseptic solution. Sterile clothing and drapes. Members of your surgical team wear medical uniforms (scrub suits), long-sleeved surgical gowns, masks, caps, shoe covers, and sterile gloves. Your body is fully covered with a large sterile sheet (sterile drape) except for the spot where the incision is made. Clean air. Operating rooms have special air filters and positive pressure airflow to prevent unfiltered air from entering the room. Careful use of antibiotics. Antibiotics are given no more than 60 minutes before the incision is made and stopped within 24 hours after surgery. This helps kill germs but avoids problems that can occur when antibiotics are taken longer. Controlled blood sugar levels. Your blood sugar level may rise because of the stress of the surgery. Your blood sugar level is watched closely to make sure it stays within a normal range. High blood sugar delays wound healing and increases the chances for infection. Controlled body temperature. A revta-ntci-lcjjqt temperature during or after surgery prevents oxygen from reaching the wound and makes it harder for your body to fight infection. Hospitals may warm IV fluids, increase the temperature in the operating room, and provide warm-air blankets. Proper hair removal. Any hair that must be removed is clipped right before the incision, not shavedwith a razor. This prevents tiny nicks and cuts through which germs can enter. Wound care. After surgery, a closed wound is covered with a sterile dressing for a day or two. Openwounds are packed with sterile gauze and covered with a sterile dressing. What you can do to prevent surgical site infections Ask questions. Learn what your hospital is doing to prevent infection. If your doctor tells you to, shower or bathe with plain soap the night before and the day of your operation. Follow the instructions you are given. You may be asked to use a special cleanser that youdon t rinse off. If you smoke, stop for the longest duration possible before and after the operation. Ask your doctor about ways to quit. Take antibiotics only when your healthcare provider tells you to. Using antibiotics when they re not needed can create germs that are harder to kill. Also, finish all your antibiotics, even if you feel better. Be sure healthcare workers clean their hands with plain soap and water or with an alcohol-based hand lining cleaner before and after caring for you. Don t be afraid to remind them. After surgery, eat healthy foods. Care for your incision as directed by your doctor or nurse. When to seek medical care Call your healthcare provider if you have any of the following: Increased soreness, pain, or tenderness at the surgical site A red streak, increased redness, or puffiness near the incision Yellowish, cloudy, or bad-smelling discharge from the incision Stitches that dissolve before the wound heals Fever of 100.4 F (38 C) or higher, or as directed by your healthcare provider A tired feeling that doesn t go away [id number] [employer]. [address] [place] [address]. All rights reserved. This information is not intended as a substitute for professional medical care. Always follow yourhealthcare professional's instructions. Please record date and time of your medications on this sheet and bring this with you on the day ofsurgery. Yellow - take the day of surgery [place] - hold according to the doctor's instructions or pre-admission testing instructions Current Outpatient Medications Medication Instructions amLODIPine 2.5 MG Tab tablet Take 1 tablet by mouth daily at night CONTINUE LAST DOSE: DATE TIME aspirin 81 MG Tab take 81 mg by mouth daily. You stated that you were instructed to stop this med 01/30/19 Cholecalciferol (VITAMIN D3 PO) Take 50 mcg by mouth. STOP 7 DAYS BEFORE YOUR SURGERY LAST DOSE: DATE TIME CRANBERRY CONCENTRATE PO Take 2 capsules by mouth daily. STOP 7 DAYS BEFORE YOUR SURGERY LAST DOSE: DATE TIME estradiol 0.1 MG/GM cream Insert 0.1 applications vaginally once a week. CONTINUE LAST DOSE: DATE TIME estradiol 0.5 MG Tab Take 1 tablet by mouth daily. CONTINUE but DO NOT take the morning of surgery LAST DOSE: DATE TIME Flaxseed Oil Oil 1,000 mg 2 times daily. STOP 7 DAYS BEFORE YOUR SURGERY LAST DOSE: DATE TIME levothyroxine 25 MCG Tab tablet Take 1 tablet by mouth daily. CONTINUE AND TAKE THE MORNING OF SURGERY WITH SIP OF WATER LAST DOSE: DATE TIME LISINOPRIL 10 MG Tab tablet TAKE 1 AND 1/2 TABLETS BY MOUTH DAILY CONTINUE but DO NOT take the morning of surgery LAST DOSE: DATE TIME nitroGLYCERIN 0.[address] 1 tablet under tongue every 5 minutes as needed for Chest pain. max = 3 doses. If CP persists after 1st dose, call 911 CONTINUE LAST DOSE: DATE TIME simvastatin 40 MG Tab Take 1 tablet by mouth daily at night CONTINUE LAST DOSE: DATE TIME Ibuprofen (ADVIL PO) take by mouth. STOP 7 DAYS BEFORE YOUR SURGERY LAST DOSE: DATE TIME documented in this encounter* Patient Instructions* Rina Leon RN - 01/30/2019 9:30 AM EDT Thank you for choosing [facility]. Your surgery date is TuesdayFebruary 06 Please call [phone] For your convenience, please call (between 9AM and 2PM) one business day (Tuesday through Tuesday, excluding holidays) before your surgery to verify your arrival time. *Example: if your surgery is on Tuesday, please call on Tuesday. If a holiday falls on Tuesday and your surgery is , please call on Tuesday to verify your arrival time. If you do not call you will receive a call with your arrival time after 2pm. *Surgery times have a tendency to change due to emergencies or cancellations. You will be notified if your arrival time changes. At [facility]'s Surgery Department, we strive to make your surgery experience as accommodating and relaxed as possible. Occasionally, however, the surgery scheduled prior to yours may take longer than anticipated. As a result, your procedure may be delayed. We will do your best to keep you informed of delays. Feel free to ask your nurse or aide for updates. Patient Surgery Information If you have any questions concerning your surgery/procedure, please call the P.A.T. Coordinator, Tuesday through Tuesday, 8:00 am to 4:30 pm at [phone]. For surgical questions during evenings or weekends, please call [phone] and ask the ways operator to page the Nursing Furniture [employer]uster. Discontinue any blood thinners such as Aspirin, Plavix, Coumadin, Eliquis as instructed by your physician. Stop any NSAIDs (Ibuprofen, Motrin, Aleve, Advil, etc.), fish oil, and other supplements 7 days before your surgery or as instructed by your physician. Tylenol or acetaminophen is ok to take within this time frame. Please refer to your medication list and follow any special instructions noted for those medicines. Check your blood sugar the morning of surgery (if you normally check your blood sugar). THINGS TO BRING WITH YOU THE MORNING OF SURGERY, if Applicable Crutches CPAP. Please bring machine, tubing and mask. Rescue Inhaler Careful attention to the following instructions will help ensure your comfort and reduce the possibility of complications. Instructions in preparation for the day of your surgery/procedure: 1. Do not eat or drink anything after midnight (this includes gum, mints, lozenges, and sips of water) before your surgery/procedure. Doing so may cause nausea or vomiting during the procedure, whichmay cause serious or fatal complications. 2. You may brush your teeth before coming to the hospital. Try not to swallow any water when brushing your teeth. 3. Bathe or shower the evening before or the day of your surgery/procedure UNLESS otherwise instructed by your physician. 4. Avoid using make-up (cosmetics), aerosol sprays, perfumes, skin creams or lotions. Any make-up, nail norwegian and lipstick will need to be removed before surgery. Hospital staff needs to see your natural coloring to assess and monitor any changes. Do not shave body hair 48-hours prior to your procedure. Men may shave facial hair as usual. 5. Wear clothing that is comfortable and easy to put on after surgery. 6. Bring a responsible adult with you. YOU ARE NOT PERMITTED TO DRIVE HOME FOLLOWING YOUR SURGERY/PROCEDURE. 7. Leave all valuables and large amounts of money at home. Do not wear any jewelry including fingerrings, navel rings, earrings, toe rings, tongue rings or any type of body piercing jewelry. For your safety, you must remove all jewelry items prior to your procedure. 8. Dentures, hearing aids, contact lenses and glasses cannot be worn during your procedure. If you use any of these items, please bring their cases with you for proper storage. [facility] will not be responsible for lost articles. 9. You will consult with anesthesia personnel the day of surgery. Anesthesia personnel will ask youimportant questions and explain the type of anesthesia you will be receiving, how it is administered, and the risks. You will have an opportunity to have all of your questions answered. 10. Two visitors may stay with you before and after surgery. For patient confidentiality and comfort, please limit your visitors to two (2) adults. We welcome and encourage parents of pediatric patients to remain here throughout the procedure. No small children will be permitted in the pre-operative or recovery area. 11. If you develop a cold, persistent cough, sore throat, fever or any other illness within two days of surgery, please notify your physician or tell the nurse as soon as you arrive at the hospital. If you experience any other health changes between your most recent visit to your surgeon and the day of the surgery, notify your physician. If you suspect you are , please notify your physician. Anesthesia and medications may be harmful to the developing fetus. 12. No alcohol 48-hours or illicit [id number] prior to your surgery. 13. Do not smoke after midnight the night before your procedure. If you are a smoker, our Surgery Department requests you quit or cut down at least 24 to 48 hours prior to your surgery/procedure. Youwill not be permitted to smoke at the hospital. You need to be aware that if you have risk factors for Obstructive Sleep Apnea, or have a sleep apnea diagnosis, and do not use your CPAP, you can be held as long as 4 hours after your procedure to ensure that your respiratory function is back to baseline. 14. Any legal documents should not be signed until 24 hours after sedation. 15. You will receive discharge instructions before leaving the hospital and copies of the information will be placed in a folder for you to take home. It is important for you, and anyone assisting with your care, to understand these instructions. 16. We will call you after your procedure to see how you are doing. Please call your doctor with any questions or concerns. DIRECTIONS: Park in the [facility] facing [address]. Enter through the front entrance and sign [facility] at [facility] Thank you for allowing us the privilege to care for you! Preventing Surgical Site Infections One risk of having surgery is an infection at the surgical site. The surgical site is any cut the surgeon makes in the skin to do the operation. Surgical site infections can range from minor to severe or even fatal. This sheet tells you more about surgical site infections, what hospitals are doing to prevent them, and how they are treated if they do occur. It also tells you what you can do to prevent these infections. What causes surgical site infections? Germs are everywhere. They re on your skin, in the air, and on things you touch. Many germs are good. Some are harmful. Surgical site infections occur when harmful germs enter your body through the incision in your skin. Some infections are caused by germs that are in the air or on objects. But most are caused by germs found on and in your own body. Who is at risk for surgical site infections? Anyone can have a surgical site infection. Your risk is greater if you: Are an older adult Have a weak immune system or other health conditions or illnesses such as diabetes Take certain medicines such as steroids Are a smoker Have certain types of operations, such as abdominal surgery Have poor nutrition Are very overweight If the operation lasts longer than 2 hours What are the symptoms of a surgical site infection? The infection usually starts with increased skin redness, pain, and swelling around the incision. Later you may notice a cloudy or greenish-yellow discharge from the incision and it may develop a foul odor. The incision may separate or open up. You are also likely to have a fever and may feel very ill. Symptoms can appear any time from hours to weeks after surgery. Implants such as an artificial kneeor hip can become infected at any time after the operation. How are surgical site infections treated? Surgical site infections are treated with antibiotics. The type of medicine you get will depend on the germ thought to be causing the infection. Most serious wound infections need local wound care, and in some cases, further surgery. An infected skin wound may be reopened and cleaned. Sometimes, deep wounds need to be packed with gauze that is changed often until the wound starts to heal from the inside out. Your healthcare provider will figure out the best care needed to treat your surgical site infection. If an infection occurs where an implant is placed, the implant may be removed. If you have an infection deeper in your body, you may need another operation to treat it. What hospitals do to prevent surgical site infections Many hospitals take these steps to help prevent surgical site infections: Handwashing. Before the operation, your surgeon and all operating room staff scrub their hands and arms with an antiseptic soap. Clean skin. The site where your incision is made is carefully cleaned with an antiseptic solution. Sterile clothing and drapes. Members of your surgical team wear medical uniforms (scrub suits), long-sleeved surgical gowns, masks, caps, shoe covers, and sterile gloves. Your body is fully covered with a large sterile sheet (sterile drape) except for the spot where the incision is made. Clean air. Operating rooms have special air filters and positive pressure airflow to prevent unfiltered air from entering the room. Careful use of antibiotics. Antibiotics are given no more than 60 minutes before the incision is made and stopped within 24 hours after surgery. This helps kill germs but avoids problems that can occur when antibiotics are taken longer. Controlled blood sugar levels. Your blood sugar level may rise because of the stress of the surgery. Your blood sugar level is watched closely to make sure it stays within a normal range. High blood sugar delays wound healing and increases the chances for infection. Controlled body temperature. A ptlmp-yiaf-rbxdbt temperature during or after surgery prevents oxygen from reaching the wound and makes it harder for your body to fight infection. Hospitals may warm IV fluids, increase the temperature in the operating room, and provide warm-air blankets. Proper hair removal. Any hair that must be removed is clipped right before the incision, not shavedwith a razor. This prevents tiny nicks and cuts through which germs can enter. Wound care. After surgery, a closed wound is covered with a sterile dressing for a day or two. Openwounds are packed with sterile gauze and covered with a sterile dressing. What you can do to prevent surgical site infections Ask questions. Learn what your hospital is doing to prevent infection. If your doctor tells you to, shower or bathe with plain soap the night before and the day of your operation. Follow the instructions you are given. You may be asked to use a special cleanser that youdon t rinse off. If you smoke, stop for the longest duration possible before and after the operation. Ask your doctor about ways to quit. Take antibiotics only when your healthcare provider tells you to. Using antibiotics when they re not needed can create germs that are harder to kill. Also, finish all your antibiotics, even if you feel better. Be sure healthcare workers clean their hands with plain soap and water or with an alcohol-based hand lining cleaner before and after caring for you. Don t be afraid to remind them. After surgery, eat healthy foods. Care for your incision as directed by your doctor or nurse. When to seek medical care Call your healthcare provider if you have any of the following: Increased soreness, pain, or tenderness at the surgical site A red streak, increased redness, or puffiness near the incision Yellowish, cloudy, or bad-smelling discharge from the incision Stitches that dissolve before the wound heals Fever of 100.4 F (38 C) or higher, or as directed by your healthcare provider A tired feeling that doesn t go away [id number] [employer]. [address] [place] [address]. All rights reserved. This information is not intended as a substitute for professional medical care. Always follow yourhealthcare professional's instructions. Please record date and time of your medications on this sheet and bring this with you on the day ofsurgery. Yellow - take the day of surgery [place] - hold according to the doctor's instructions or pre-admission testing instructions Current Outpatient Medications Medication Instructions amLODIPine 2.5 MG Tab tablet Take 1 tablet by mouth daily at night CONTINUE LAST DOSE: DATE TIME aspirin 81 MG Tab take 81 mg by mouth daily. You stated that you were instructed to stop this med 01/30/19 Cholecalciferol (VITAMIN D3 PO) Take 50 mcg by mouth. STOP 7 DAYS BEFORE YOUR SURGERY LAST DOSE: DATE TIME CRANBERRY CONCENTRATE PO Take 2 capsules by mouth daily. STOP 7 DAYS BEFORE YOUR SURGERY LAST DOSE: DATE TIME estradiol 0.1 MG/GM cream Insert 0.1 applications vaginally once a week. CONTINUE LAST DOSE: DATE TIME estradiol 0.5 MG Tab Take 1 tablet by mouth daily. CONTINUE but DO NOT take the morning of surgery LAST DOSE: DATE TIME Flaxseed Oil Oil 1,000 mg 2 times daily. STOP 7 DAYS BEFORE YOUR SURGERY LAST DOSE: DATE TIME levothyroxine 25 MCG Tab tablet Take 1 tablet by mouth daily. CONTINUE AND TAKE THE MORNING OF SURGERY WITH SIP OF WATER LAST DOSE: DATE TIME LISINOPRIL 10 MG Tab tablet TAKE 1 AND 1/2 TABLETS BY MOUTH DAILY CONTINUE but DO NOT take the morning of surgery LAST DOSE: DATE TIME nitroGLYCERIN 0.[address] 1 tablet under tongue every 5 minutes as needed for Chest pain. max = 3 doses. If CP persists after 1st dose, call 911 CONTINUE LAST DOSE: DATE TIME simvastatin 40 MG Tab Take 1 tablet by mouth daily at night CONTINUE LAST DOSE: DATE TIME Ibuprofen (ADVIL PO) take by mouth. STOP 7 DAYS BEFORE YOUR SURGERY LAST DOSE: DATE TIME documented in this encounter Discharge Instructions * Instructions* Dagoberto Gilbert, DO - 02/06/2019 Discharge Instructions for Laparoscopic Cholecystectomy You have had a procedure known as a laparoscopic cholecystectomy. A laparoscopic cholecystectomy ozzy procedure to remove your gallbladder. People who have this procedure usually recover more quicklyand have less pain than with open gallbladder surgery (called open cholecystectomy). Many surgeons recommend a low-fat diet, avoiding fried food in particular, for the first month after surgery. You can live a full and healthy life without your gallbladder. This includes eating the foods and doing the things you enjoyed before your gallbladder problems started. Home care Recommendations for home care include the following: Ask someone to drive you to your appointments for the next [address] until you are no longer taking pain medicine and are able to step on the brake pedal without hesitation. Wash the skin around your incision daily with mild soap and water. It is ok to shower 2 days after surgery. Please remove the outer dressing after 2 days as well Eat your regular diet. It is aparicio to stay away from rich, greasy, or spicy food for a few days. Remember, it takes at least 1 week for you to get most of your strength and energy back. Make an office visit to talk to your healthcare provider if the following symptoms don t go away within a week after your surgery: Fatigue Pain around the incision Diarrhea or constipation Loss of appetite When to call your healthcare provider Call your healthcare provider immediately if you have any of the following: Yellowing of your eyes or skin (jaundice) Chills Fever of 100.4 F (38.0 C) or higher, or as directed by your healthcare provider Redness, swelling, increasing pain, pus, or a foul smell at the incision site Dark or rust-colored urine Stool that is shaheen-colored or light in color instead of brown Increasing belly pain Rectal bleeding Leg swelling or shortness of breath Date Last Reviewed: 01/02/201619997743-2798 [employer]. [address] [place] [address]. All rights reserved. This information is not intended as a substitute for professional medical care. Always follow yourhealthcare professional's instructions. documented in this encounter Health Concerns Infection Onset Date Last Indicated Resolved Time COVID-19 Rule-Out 09/21/2022 09/21/2022 Infection Onset Date Last Indicated Resolved Time COVID-19 Rule-Out 09/21/2022 09/21/2022 09/22/2022 12:09 AM EDT COVID-19 Confirmed 09/21/2022 09/21/2022 Additional Source Comments INFORMATION SOURCE (unrecogn ized section and content) DATE CREATED AUTHOR AUTHOR'S ORGANIZ ATION 03/03/2020 [facility] DATE CREATED AUTHOR AUTHOR'S ORGANIZ ATION 04/23/2021 [facility] DATE CREATED AUTHOR AUTHOR'S ORGANIZ ATION 09/21/2021 [facility] Reason for Visit (unrecogniz ed section and content) Reason Comments Results Menopause Thyroid Problem Hypercholesterol Atherosclerosis Status Reason Specialty Diagnoses / Procedures Referre d By Contact Referred To Contact Closed Diagnoses Post-menopausal Procedures BONE DENSITY AXIAL (HIP, PELVIS, SPINE) Diana Thomason MD [address] [place] [id number] Reason Comments Abdominal Pain Started last tuesday feels like she has flu Reason Comments Medication Problem Reason Comments GI Problem gastritis Status Reason Specialty Diagnoses / Procedures Re ferred By Contact Referred To Contact Diagnoses Gastroesophageal reflux disease, esophagitis presence not specified Right upper quadrant pain Gastroesophageal reflux disease, esophagitis presence not specified [K21.9] Right upper quadrant pain [R10.11] Procedures MS ESOPHAGOGASTRODUODENOSCOPY TRANSORAL DIAGNOSTIC EGD DIAGNOSTIC Reason Comments New Patient Pre-op Exam Status Reason Specialty Diagnoses / Procedures Referred By Contact Referred To Contact Closed Cardiovascular Medicine Diagnoses Preop cardiovascular exam Dagoberto Gilbert, [address] [place] [address] Denis Bass, [address] [place] [address] Reason Comments Preoperative Assessment 02/06/19 Reason Comments Lab Review Hypertension Hypothyroidism Hyperlipidemia Abdominal Pain Reason Comments Diarrhea diarrhea Reason Comments Results Hypertension Thyroid Problem Hyperlipidemia Menopause Reason Comments Results Hypertension Hyperlipidemia Coronary Atherosclerosis Thyroid Problem Status Reason Specialty Diagnoses / Procedures Referre d By Contact Referred To Contact Diagnoses Abdominal pain, right upper quadrant [R10.11] Dagoberto Gilbert, [address] [place] [address] Reason Comments Error Reason Comments Sore Throat ST, bodyaches, FERNANDO, d amanda, cough and weakness x 5 days Reason Comments Results Care Teams (unrecognized sec tion and content) Asbestos Removal Supervisor Relationship Specialty Start Date End Date Adela Harley MD [address] [facility] [address] [place], [place] [phone] PCP - General Family Medicine 02/02/21 Asbestos Removal Supervisor Relationship Specialty Start Date End Date Adela Harley MD [address] [place], [place] [id number] PCP - General Family Medicine 02/02/21 Source Comments (unrecognize d section and content) In the event this informatio n is protected by the Federal Confidentiality of Alcohol and Drug Abuse Patient Records regulations: The Federal rules restrict any use of the information to criminally investigate or prosecute any alcohol or drug abuse patient.[facility] the event this information is protected by the Federal Confidentiality of Alcohol and Drug Abuse Patient Records regulations: The Federal rules restrict any use of the information to criminally investigate or prosecute any alcohol or drug abuse patient.[facility] FOR RECORDS PERTAINING TO PATIENTS WHO ARE OR HAVE BEEN ENROLLED IN A CHEMICAL DEPENDENCY/SUBSTANCEABUSE PROGRAM, SOME INFORMATION MAY BE OMITTED. This clinical summary was aggregated from multiple sources. Caution should be exercised in using it in the provision of clinical care. This summary normalizes information from multiple sources, and as a consequence, information in this document may materially change the coding, format and clinical context of patient data. In addition, data may be omitted in some cases. CLINICAL DECISIONS SHOULD BE BASED ON THE PRIMARY CLINICAL RECORDS. [facility]. provides no warranty or guarantee of the accuracy or completeness of information in this document.
[2023-08-22 07:24] LABS: Absolute Lymphocyte Count 1.44 X10^3/uL (0.83-4.51); Absolute Neutrophil Count 7.1 X10^3/uL (2.0-7.7); Basophil# 0.05 X10^3/uL; Basophil% 0.5 % (0-1); Eosinophil# 0.05 X10^3/uL; Eosinophils% 0.5 % (0-5); Hematocrit 38.1 % (37-47); Hemoglobin 12.5 g/dL (12.0-15.0); Lymphocyte # 1.44 X10^3/ul (0.83-4.51); Lymphocyte % 14.9 % (19-41); Mean Corp Hgb Conc 32.8 g/dL (32-36); Mean Corpuscular Hgb 28.9 pg (27.0-32.0); Mean Corpuscular Volume 88.2 fL (81-99); Mean Platelet Vol. 9.7 fl (6.2-12.0); Monocyte# 1.03 X10^3/uL; Monocyte% 10.7 % (0-10); NRBC Flagged by Analyzer 0 % (0-5); Neutrophil # 7.06 X10^3/uL (2.7-7.7); Neutrophil % 73.1 % (47-70); Platelet Count 323 K/mm3 (150-450); RBC Distribution Width CV 13.4 % (11.6-14.6); RBC Distribution Width SD 43.8 fl (35.1-43.9); Red Blood Count 4.32 M/mm3 (4.2-5.4); White Blood Count 9.7 K/mm3 (4.4-11.0)
[2023-08-22 08:07] LABS: ALB/GLOB Ratio 0.9 RATIO (0.9-2.4); AST(SGOT) 21 U/L (15-37); Alanine Aminotransfer ALT/SGPT 16 U/L (13-56); Albumin, Serum 3.8 g/dL (3.2-5.0); Alkaline Phosphatase 62 U/L (45-117); Anion Gap 5 (5-15); BUN 13 mg/dL (7-18); BUN/Creat Ratio 17.4 RATIO (10-20); Bilirubin, Direct 0.19 mg/dL (0.00-0.30); Calcium,Total 9.4 mg/dL (8.5-10.1); Chloride 101 mmol/L (98-107); Cholesterol 173 mg/dL (200); Creatinine, Serum 0.75 mg/dL (0.55-1.02); EST Glomerular Filtration Rate 80 mL/min (>60); Est Glom Filt Rate - Afr Amer 97 mL/min (>60); Globulin 4.1 g/dL (2.2-4.2); Glucose 93 mg/dL (74-106); High Density Lipoprotein 77 mg/dL; Potassium 4.2 mmol/L (3.5-5.1); Protein, Total 7.9 g/dL (6.4-8.2); Sodium Level 133 mmol/L (136-145); Thyroid Stim Hormone (TSH) 2.41 uIU/mL (0.358-3.74); Triglycerides 144 mg/dL; Very Low Density Lipoprotein 29 mg/dL (5-40)
[2023-08-22 08:21] LABS: Vitamin D,25 Hydroxy 58.4 ng/mL
== END | disposition home or self-care (01) ==
LOC: LAB 06:40
PROVIDERS: Nurse Practitioner Gerontology; PCP Family Medicine; Referring Provider Family Medicine; Visit Provider Family Medicine
DX: M81.0 Age-related osteoporosis without current pathological fracture (principal); E87.1 Hypo-osmolality and hyponatremia; D64.9 Anemia, unspecified; E03.9 Hypothyroidism, unspecified; I25.10 Atherosclerotic heart disease of native coronary artery without angina pectoris
CPT/HCPCS: 36415; 80053; 80061; 82248; 82306; 84443; 85025

== ENCOUNTER 2023-09-07 08:09 | Emergency (ER) | payer MEDICARE, SELFPAY ==
[2021-03-05 11:09] VITALS: BMI 18.5
[2023-09-07 08:10] VITALS: BP 204/123; PULSE 74; RESP 16; TEMP 36.4; O2SAT 100; BMI 18.8
--- NOTE | 2023-09-07 08:21 | CT_ITS ---
HISTORY: facial trauma TECHNIQUE: Helically acquired images of the facial bones were obtained without contrast. A radiation dose optimization technique was used for this scan. 294 images. COMPARISON: None. FINDINGS: OSSEOUS STRUCTURES: No acute fracture or dislocation identified. SOFT TISSUES: Soft tissue swelling over the mandible. PARANASAL SINUSES: Small osteoma in the ethmoid air cells. No significant air fluid levels. VISUALIZED MASTOID AIR CELLS: Clear. ORBITAL CONTENTS: Bilateral lens resections. Both globes, extraocular muscles and retrobulbar fat appear unremarkable. CT/Sinus/Facial Bone IMPRESSION: No acute fracture identified. Electronically Signed: Kathia Ray MD at 9:31 EST ,
--- NOTE | 2023-09-07 08:21 | CT_ITS ---
HISTORY: neck trauma. TECHNIQUE: Helically acquired images were obtained of the cervical spine without contrast. 2D reformatted images were reviewed. A radiation dose optimization technique was used for this scan. 391 images. COMPARISON: None. FINDINGS: VERTEBRAE: Vertebral body heights maintained. Posterior elements intact. ALIGNMENT: No significant anterior or posterior subluxation. Preservation of the cervical lordosis. INTERVERTEBRAL DISCS: Degenerative endplate changes with intervertebral disc space narrowing and posterior disc bulge osteophyte complexes of C5-6, C6-7, and C7-T1. Uncovertebral and facet arthropathy also noted. No critical central canal stenosis. SOFT TISSUES: No prevertebral soft tissue swelling. CT/Spine Cervical without Contras IMPRESSION: No evidence for acute fracture or dislocation in the cervical spine. Multilevel degenerative change. Electronically Signed: Kathia Ray MD at 9:05 EST ,
--- NOTE | 2023-09-07 08:21 | CT_ITS ---
HISTORY: head trauma. TECHNIQUE: Multiple axial images were obtained of the head without intravenous contrast. A radiation dose optimization technique was used for this scan. 244 images. COMPARISON: None. FINDINGS: BRAIN PARENCHYMA: Multiple foci and zones of low attenuation in the bilateral cerebral white matter compatible with chronic small vessel ischemic gliosis. No acute intra-axial hemorrhage identified. CSF SPACES: Generalized volume loss. No midline shift or other significant mass effect. No acute extra-axial hemorrhage seen. OTHER: Intact calvarium. No significant air fluid levels in the paranasal sinuses or mastoid air cells. Bilateral lens resections. CT/Brain/Head without Contrast IMPRESSION: No acute intracranial process identified. Chronic involutional and white matter changes. Electronically Signed: Kathia Ray MD at 9:03 EST ,
--- NOTE | 2023-09-07 08:23 | ED.VIS.FALL ---
HPI HPI - Fall History of Present Illness Chief Complaint: Fall Narrative Narrative: 78-year-old female presenting after mechanical fall today. Patient was out walking her dog and the dog pulled her and she tripped falling over on her right forearm, left knee. She states she hit her face on the ground. No LOC. Patient on aspirin but no other anticoagulation. Patient has mild headache and facial pain. She states she has a superficial skin tear on the right forearm which she is already cleaned and dressed. She complains of left patellar pain and bruising. She has a superficial abrasion overlying this. She has been ambulatory since then. Patient states she is concerned for a broken nose and for a brain bleed . Patient feels well her dentition are intact. She complains of right-sided facial swelling over her right upper lip. Patient also has pain over her right supraorbital ridge and right cheekbone. She notes that there is bruising in each place. [facility] Medical History Anemia Anxiety Arthritis Atherosclerosis of coronary artery of [place] heart without angina pectoris Breast cancer Essential hypertension GERD (gastroesophageal reflux disease) Hiatal hernia History of hepatitis A Hyperlipidemia Hypothyroidism IBS (irritable bowel syndrome) Osteoarthritis Osteopenia Unstable angina Home Medications aspirin 81 mg chewable tablet 81 mg PO DAILY@0800 heart 05/30/20 [History Last Taken 01/26/21] estradiol 0.01% (0.1 mg/gram) vaginal cream 1 ea vaginal WE supplement 05/30/20 [History Last Taken 05/28/20] cranberry 400 mg capsule 800 mg PO DAILY 12/22/20 [History Last Taken Unknown] estradiol 0.5 mg tablet 0.5 mg PO QHS 12/22/20 [History Last Taken Unknown] flaxseed oil 1,000 mg capsule 1,000 mg PO BID 12/22/20 [History Last Taken Unknown] nitroglycerin 0.4 mg sublingual tablet 0.4 mg sublingual Q5M PRN chest pain #25 tabs 08/02/22 [Rx Last Taken Unknown] levothyroxine 25 mcg tablet 50 mcg PO DAILY thyroid 10/04/22 [History Last Taken Unknown] simvastatin 10 mg tablet 10 mg PO DAILY #90 tabs 02/23/23 [Rx Last Taken Unknown] lisinopril 10 mg tablet See Rx Instructions .Route .COMPLEX #135 tabs 09/14/23 [Rx Last Taken Unknown] cholecalciferol (vitamin D3) 50 mcg (2,000 unit) capsule 50 mcg PO BID supplement 04/07/23 [History Last Taken Unknown] Allergy/AdvReac Type Severity Reaction Status Date / Time lactose AdvReac Upset Verified 09/07/23 08:12 Stomach metoprolol AdvReac dizziness Verified 09/07/23 08:12 Penicillins AdvReac Hives Verified 09/07/23 08:12 Family History Sister Breast cancer Grandmother Breast cancer Father CVA (cerebral vascular accident) Myocardial infarction Mother Parkinson's disease Brother Seizures CVA (cerebral vascular accident) Surgical History H/O coronary artery bypass surgery (06/16/99) History of bilateral breast implants History of bilateral mastectomy History of bunionectomy History of cataract surgery History of cholecystectomy History of coronary artery stent placement (02/03/21) History of hammer toe correction History of hysterectomy History of left heart catheterization (01/26/21) History of right knee surgery History of shoulder surgery Social History Smoking Status: Never smoker alcohol intake: never substance use type: does not use what type of physical activity do you participate in: walking frequency: 5-6 times per week ROS ROS ED Constitutional Constitutional ED: Denies chills or fever(s) Eyes Eyes: Denies change in vision or diplopia ENT ENT ED: Denies rhinorrhea or sore throat Cardiovascular Cardiovascular: Denies chest pain or palpitations Respiratory/Chest Respiratory/Chest: Denies cough or dyspnea Gastrointestinal Gastrointestinal: Denies abdominal pain, nausea or vomiting Genitourinary Genitourinary ED: Denies dysuria or hematuria Musculoskeletal Musculoskeletal: Reports other Details: Left knee pain, right forearm pain ; Denies arthralgias Integumentary Reports other Details: Bruising and swelling over the right supraorbital ridge, right cheekbone, right upper lip. Superficial skin tear right forearm. Contusion left knee. Neurologic Neurologic: Reports headache(s) Psychiatric Psychiatric: Denies anxiety or depression EXAM Physical Exam Const Vital Signs: 09/07/23 08:10 09/07/23 09:27 09/07/23 10:16 Temperature 97.5 F L 97.9 F Temperature Source Temporal Pulse Rate 74 72 Respiratory Rate 16 16 Respiratory Effort Normal Blood Pressure 204/123 H 188/82 H Blood Pressure Mean 150 117 Pulse Ox 100 99 Oxygen Delivery Method Room Air Positive well nourished General Appearance ED: NAD HEENT Reports normocephalic and TM's clear HEENT Narrative: Bruising and swelling of the right supraorbital ridge in the right zygoma. No obvious deformities. Nasal bone midline without deformity or bruising. No nasal septal hematoma. No epistaxis. Extraocular motion intact without entrapment. Dentition appear to be intact. There is a large swelling to the right upper lip with some internal superficial lacerations. No active bleeding. Tympanic Membrane ED: Yes TM's clear Eyes PERRL and EOMs intact bilaterally Neck full ROM Neck Narrative: No midline spinal tenderness, deformity, step-off. Chest Wall inspection of chest normal Resp normal respiratory effort and clear to auscultation bilaterally Cardio regular rate and regular rhythm Neuro oriented x3, CN's II-XII intact bilaterally, moves all extremities, no focal motor deficits and no sensory deficits noted Motor Exam: strength 5/5 throughout Psych mental status grossly normal Skin Skin Narrative: Right forearm: 3 cm skin tear over right forearm dorsally. No active bleeding. Left knee: Superficial contusion over left patella. MDM MDM MDM Narrative Medical decision making narrative: Patient presenting with facial trauma and injury to the right forearm and left knee. Her right forearm is minimally tender. She does not believe she broke a bone. She has a superficial skin tear which has been cleaned and dressed already. I did take this down and this will need to be redressed and cleaned. Neither I nor the patient that she needs an x-ray of the right forearm. tetanus will be updated today as she is states that she has not had it in over 10 years. She has pain over the left patella but full range of motion. Will obtain x-ray imaging of this. CT brain, cervical spine, facial bones will be obtained as the patient had a fall falling on her right face and has a lot of external signs of injury. No focal neurologic deficits or lateralizing signs or symptoms. She is alert and awake. A large amount of facial swelling to the right supraorbital ridge, right zygoma, right upper lip. Airways intact. Dentition appear to be intact. Superficial internal lip lacerations. Impression: 1. Mechanical fall 2. Blunt facial trauma 3. 3 cm right forearm laceration/skin tear 4. Left knee contusion Radiography Diagnostic Testing: Clinical Impression(s) from Imaging Studies Brain CT 09/07/23 08:21 IMPRESSION: No acute intracranial process identified. Chronic involutional and white matter changes. Electronically Signed: Kathia Ray MD at 9:03 EST , Cervical Spine CT 09/07/23 08:21 IMPRESSION: No evidence for acute fracture or dislocation in the cervical spine. Multilevel degenerative change. Electronically Signed: Kathia Ray MD at 9:05 EST , Facial/Sinus 09/07/23 08:21 IMPRESSION: No acute fracture identified. Electronically Signed: Kathia Ray MD at 9:31 EST , Knee X-Ray 09/07/23 08:50 IMPRESSION: No acute fracture or dislocation identified in the left knee. Electronically Signed: Kathia Ray MD at 9:06 EST , Discharge Plan Triage Chief Complaint: Fall ED Provider: Nick Swenson Dx/Rx/DC Orders Instructions: ED Contusion, Lower Extremity, ED Facial Contusion, ED Mechanical Fall, ED Head Injury (Adult), ED Skin Tear (Skin Avulsion) Prescriptions: No Action cranberry 400 mg capsule 800 mg PO DAILY Rx Instructions: administer with a meal estradiol 0.5 mg tablet 0.5 mg PO QHS Patient Comments: take 1 tablet by mouth once daily flaxseed oil 1,000 mg capsule 1,000 mg PO BID Rx Instructions: administer with meals aspirin 81 MG tablet,chewable 81 mg PO DAILY@0800 estradiol 42.5 GM cream 1 ea VAGINAL WE Patient Comments: INSERT 0.1 APPLICATIONS VAGINALLY ONCE A WEEK levothyroxine 25 mcg tablet 50 mcg PO DAILY cholecalciferol (vitamin D3) 50 mcg (2,000 unit) capsule 50 mcg PO BID nitroglycerin 0.4 mg tablet, sublingual 0.4 mg sublingual Q5M PRN (Reason: chest pain) Qty: 25 1RF simvastatin 10 mg tablet 10 mg PO DAILY Qty: 90 3RF lisinopril 10 mg tablet See Rx Instructions .ROUTE .COMPLEX Qty: 135 3RF Dose Instruction: take 1 AND 1/2 tablets by mouth once daily Rx Instructions: take 1 AND 1/2 tablets by mouth once daily Primary Care Provider: Adela Harley Referrals: Adela Harley MD [Primary Care Provider] - Disposition Disposition: Home, Self Care Discharge Date/Time: 09/07/23 10:23
--- NOTE | 2023-09-07 08:50 | RAD_ITS ---
HISTORY: pain. TECHNIQUE: XR Knee Complete 4 Views or More. COMPARISON: 01/06/2022. FINDINGS: BONES : No acute fracture identified. Small degenerative osteophytes noted. JOINTS: No dislocation. Joint spaces maintained. RAD/Knee 4 or More Views IMPRESSION: No acute fracture or dislocation identified in the left knee. Electronically Signed: Kathia Ray MD at 9:06 EST ,
[2023-09-07] MEDS: Diphth,Pertuss(Acell),Tet Vac 0.5 ML Vial IM (08:59)
[2023-09-07] MEDS: Acetaminophen 500 MG Tablet 1000 MG PO (09:01)
[2023-09-07 10:16] VITALS: BP 188/82; PULSE 72; RESP 16; TEMP 36.6; O2SAT 99
== END 2023-09-07 10:23 | disposition home or self-care (01) ==
PROVIDERS: Emergency Provider Student in an Organized Health Care Education/Training Program; PCP Family Medicine; Visit Provider Student in an Organized Health Care Education/Training Program
DX: S00.83XA Contusion of other part of head, initial encounter (principal); S00.531A Contusion of lip, initial encounter; S51.811A Laceration without foreign body of right forearm, initial encounter; S80.02XA Contusion of left knee, initial encounter; W18.09XA Striking against other object with subsequent fall, initial encounter; Y93.K1 Activity, walking an animal; S09.93XA Unspecified injury of face, initial encounter; I25.10 Atherosclerotic heart disease of native coronary artery without angina pectoris; I10 Essential (primary) hypertension; E78.5 Hyperlipidemia, unspecified; E03.9 Hypothyroidism, unspecified; Z23 Encounter for immunization; Z79.82 Long term (current) use of aspirin; Z79.890 Hormone replacement therapy; Z79.899 Other long term (current) drug therapy; Z95.1 Presence of aortocoronary bypass graft; Z95.5 Presence of coronary angioplasty implant and graft
CPT/HCPCS: 70450; 70486; 72125; 73564; 90715; 99282

== ENCOUNTER → 2024-02-27 | Outpatient (CLI) | payer MEDICARE, SELFPAY ==
[2021-03-05 11:09] VITALS: BMI 18.5
[2024-02-27 07:11] LABS: Absolute Lymphocyte Count 1.35 X10^3/uL (0.83-4.51); Absolute Neutrophil Count 6.6 X10^3/uL (2.0-7.7); Basophil# 0.06 X10^3/uL; Basophil% 0.6 % (0-1); Eosinophil# 0.09 X10^3/uL; Hematocrit 35.4 % (37-47); Hemoglobin 11.5 g/dL (12.0-15.0); Lymphocyte # 1.35 X10^3/ul (0.83-4.51); Lymphocyte % 14.5 % (19-41); Mean Corp Hgb Conc 32.5 g/dL (32-36); Mean Corpuscular Hgb 28.3 pg (27.0-32.0); Mean Platelet Vol. 9.6 fl (6.2-12.0); Monocyte# 1.16 X10^3/uL; Monocyte% 12.5 % (0-10); NRBC Flagged by Analyzer 0 % (0-5); Neutrophil # 6.59 X10^3/uL (2.7-7.7); Neutrophil % 71.1 % (47-70); Platelet Count 306 K/mm3 (150-450); RBC Distribution Width CV 13.1 % (11.6-14.6); RBC Distribution Width SD 41.2 fl (35.1-43.9); Red Blood Count 4.07 M/mm3 (4.2-5.4); White Blood Count 9.3 K/mm3 (4.4-11.0)
[2024-02-27 08:12] LABS: ALB/GLOB Ratio 0.9 RATIO (0.9-2.4); AST(SGOT) 23 U/L (15-37); Alanine Aminotransfer ALT/SGPT 18 U/L (13-56); Albumin, Serum 3.6 g/dL (3.2-5.0); Alkaline Phosphatase 56 U/L (45-117); Anion Gap 6 (5-15); BUN 12 mg/dL (7-18); BUN/Creat Ratio 17.9 RATIO (10-20); Bilirubin, Direct 0.24 mg/dL (0.00-0.30); Calcium,Total 8.6 mg/dL (8.5-10.1); Chloride 99 mmol/L (98-107); Cholesterol 156 mg/dL (200); Creatinine, Serum 0.67 mg/dL (0.55-1.02); EST Glomerular Filtration Rate 91 mL/min (>60); Est Glom Filt Rate - Afr Amer 110 mL/min (>60); Globulin 3.9 g/dL (2.2-4.2); Glucose 91 mg/dL (74-106); High Density Lipoprotein 69 mg/dL; Protein, Total 7.5 g/dL (6.4-8.2); Sodium Level 133 mmol/L (136-145); Triglycerides 120 mg/dL; Very Low Density Lipoprotein 24 mg/dL (5-40)
== END | disposition home or self-care (01) ==
LOC: LAB 06:33
PROVIDERS: PCP Family Medicine; Referring Provider Nurse Practitioner Gerontology; Visit Provider Nurse Practitioner Gerontology
DX: M81.0 Age-related osteoporosis without current pathological fracture (principal); E87.1 Hypo-osmolality and hyponatremia; D64.9 Anemia, unspecified; E03.9 Hypothyroidism, unspecified; I25.10 Atherosclerotic heart disease of native coronary artery without angina pectoris
CPT/HCPCS: 36415; 80053; 80061; 82248; 84443; 85025

== ENCOUNTER → 2024-08-27 | Outpatient (CLI) | payer MEDICARE, SELFPAY ==
[2021-03-05 11:09] VITALS: BMI 18.5
[2024-08-27 06:48] LABS: Absolute Lymphocyte Count 1.53 X10^3/uL (0.83-4.51); Absolute Neutrophil Count 6.9 X10^3/uL (2.0-7.7); Basophil# 0.05 X10^3/uL; Basophil% 0.5 % (0-1); Eosinophil# 0.08 X10^3/uL; Eosinophils% 0.8 % (0-5); Hematocrit 36.7 % (37-47); Hemoglobin 11.9 g/dL (12.0-15.0); Lymphocyte # 1.53 X10^3/ul (0.83-4.51); Lymphocyte % 15.7 % (19-41); Mean Corp Hgb Conc 32.4 g/dL (32-36); Mean Corpuscular Hgb 28.7 pg (27.0-32.0); Mean Corpuscular Volume 88.4 fL (81-99); Mean Platelet Vol. 9.5 fl (6.2-12.0); Monocyte% 12.3 % (0-10); NRBC Flagged by Analyzer 0 % (0-5); Neutrophil # 6.85 X10^3/uL (2.7-7.7); Neutrophil % 70.3 % (47-70); Platelet Count 331 K/mm3 (150-450); RBC Distribution Width CV 13.2 % (11.6-14.6); RBC Distribution Width SD 42.9 fl (35.1-43.9); Red Blood Count 4.15 M/mm3 (4.2-5.4); White Blood Count 9.8 K/mm3 (4.4-11.0)
[2024-08-27 07:34] LABS: ALB/GLOB Ratio 0.8 RATIO (0.9-2.4); AST(SGOT) 24 U/L (15-37); Alanine Aminotransfer ALT/SGPT 15 U/L (13-56); Albumin, Serum 3.6 g/dL (3.2-5.0); Alkaline Phosphatase 54 U/L (45-117); Anion Gap 9 (5-15); BUN 12 mg/dL (7-18); BUN/Creat Ratio 17.3 RATIO (10-20); Bilirubin, Direct 0.19 mg/dL (0.00-0.30); Calcium,Total 9.2 mg/dL (8.5-10.1); Chloride 99 mmol/L (98-107); Cholesterol 156 mg/dL (200); EST Glomerular Filtration Rate 87 mL/min (>60); Est Glom Filt Rate - Afr Amer 105 mL/min (>60); Globulin 4.4 g/dL (2.2-4.2); Glucose 89 mg/dL (74-106); High Density Lipoprotein 75 mg/dL; Potassium 3.9 mmol/L (3.5-5.1); Sodium Level 133 mmol/L (136-145); Triglycerides 127 mg/dL; Very Low Density Lipoprotein 25 mg/dL (5-40)
== END | disposition home or self-care (01) ==
PROVIDERS: Nurse Practitioner Gerontology; PCP Family Medicine; Referring Provider Family Medicine; Visit Provider Family Medicine
DX: M81.0 Age-related osteoporosis without current pathological fracture (principal); E87.1 Hypo-osmolality and hyponatremia; D64.9 Anemia, unspecified; E03.9 Hypothyroidism, unspecified; I25.10 Atherosclerotic heart disease of native coronary artery without angina pectoris
CPT/HCPCS: 80053; 80061; 82248; 84443; 85025

== ENCOUNTER 2024-12-11 18:33 | Observation (INO) | payer MEDICARE, SELFPAY ==
[2021-03-05 11:09] VITALS: BMI 18.5
[2024-12-11] VITALS (7 sets, daily range): BP systolic 140–198; BP diastolic 73–97; PULSE 60–78; RESP 11–18; TEMP 36.8; O2SAT 98–100; BMI 19.1
--- NOTE | 2024-12-11 18:36 | EKG12_ITS ---
Test Reason : Blood Pressure : */* mmHG Vent. Rate : 71 BPM Atrial Rate : 71 BPM P-R Int : 142 ms QRS Dur : 66 ms QT Int : 380 ms P-R-T Axes : 55 -25 66 degrees QTcB Int : 412 ms Sinus rhythm with Premature supraventricular complexes Minimal voltage criteria for LVH, may be normal variant ( R in aVL ) Septal infarct , age undetermined Abnormal ECG Confirmed by Khanh Hernandez ([id number]), telegraph editor REILLY HIGGINS ([id number]) on 12/13/2024 6:07:11 AM Referred By: Confirmed By: Khanh Hernandez
--- NOTE | 2024-12-11 19:09 | ED.VIS.CHEST ---
HPI History of Present Illness Chief Complaint: Chest Pain Informant: patient Onset/Context/Timing Onset: Today Activity at onset: gradual Timing: Continuous Quality: Positive for Pressure Location: Substernal Worsened By: Nothing Relieved By: NTG and NSAIDS (Aspirin) Associated Symptoms: Positive for Nausea, Diaphoresis, Fever, Lightheadedness and Palpitations; Negative for Vomiting, Dyspnea, Cough or Acid Reflux Narrative Narrative: Patient presents with chest pain that began today. Patient states it came on gradually. Patient states it has been constant. Patient describes it as a pressure. Patient states it is over the substernal area. Patient states she took aspirin and nitroglycerin which helped somewhat. Patient admits to some nausea but denies any vomiting. Patient admits to some diaphoresis and some shortness of breath. Patient admits to a subjective fever but denies any chills. Patient denies any cough. Patient admits to some lightheadedness and palpitations. Patient states she checked her blood pressure at home and it was over 200/100. Patient denies any vomiting. CVD Risk Factors: Positive for Hypertension, Hypercholesterolemia and Family History 1' </=55; Negative for Diabetes or Smoking PE Risk Factors: Positive for Cancer; Negative for Recent Travel/Surgery, Recent Immobilization, Prior DVT or PE or OCP + Smoking + >/=35 PFSH PFSH Medical History Unstable angina Breast cancer Osteopenia Hiatal hernia Osteoarthritis IBS (irritable bowel syndrome) History of hepatitis A Anemia Atherosclerosis of coronary artery of [place] heart without angina pectoris Essential hypertension GERD (gastroesophageal reflux disease) Anxiety Arthritis Hyperlipidemia Hypothyroidism Home Medications ?Medication ?Instructions ?Recorded ?Last Taken ?Type aspirin 81 mg chewable tablet 81 mg PO DAILY@0800 heart 05/30/20 01/26/21 History estradiol 0.01% (0.1 mg/gram) 1 ea vaginal WE supplement 05/30/20 05/28/20 History vaginal cream estradiol 0.5 mg tablet 0.5 mg PO QHS 12/22/20 Unknown History nitroglycerin 0.4 mg sublingual 0.4 mg sublingual Q5M PRN chest 08/02/22 Unknown Rx tablet pain #25 tabs flaxseed oil 1,000 mg capsule 1,000 mg PO DAILY 11/01/23 Unknown History simvastatin 10 mg tablet 10 mg PO DAILY #90 tabs 02/03/24 Unknown Rx lisinopril 10 mg tablet See Rx Instructions .Route 03/12/24 Unknown Rx .COMPLEX #135 tabs cholecalciferol (vitamin D3) 50 50 mcg PO QDAY supplement 05/08/24 Unknown History mcg (2,000 unit) capsule cranberry fruit 400 mg capsule 400 mg PO DAILY 05/08/24 Unknown History levothyroxine 50 mcg tablet 50 mcg PO DAILY 12/11/24 Unknown History Allergy/AdvReac Type Severity Reaction Status Date / Time lactose AdvReac Upset Verified 12/11/24 18:34 Stomach metoprolol AdvReac dizziness Verified 12/11/24 18:34 Penicillins AdvReac Hives Verified 12/11/24 18:34 Family History (Reviewed 05/08/24 @ 09:05 by Aicha Mims [employer]CH[employer] ADMINISTRATOR, [employer]CHANGE ADMINISTRATOR-C) Sister Breast cancer Grandmother Breast cancer Father CVA (cerebral vascular accident) Myocardial infarction Mother Parkinson's disease Brother Seizures CVA (cerebral vascular accident) Surgical History History of coronary artery stent placement (02/03/21) H/O coronary artery bypass surgery (06/16/99) History of left heart catheterization (01/26/21) History of bilateral breast implants History of shoulder surgery History of hammer toe correction History of bunionectomy History of cholecystectomy History of cataract surgery History of bilateral mastectomy History of right knee surgery History of hysterectomy Social History Smoking Status: Never smoker alcohol intake: never substance use type: does not use what type of physical activity do you participate in: walking frequency: 5-6 times per week ROS ROS ED Constitutional Constitutional ED: Reports fever(s) and subjective; Denies chills Eyes Eyes: Denies blurry vision or change in vision ENT ENT ED: Denies rhinorrhea or sore throat Cardiovascular Cardiovascular: Reports chest pain and palpitations Respiratory/Chest Respiratory/Chest: Reports dyspnea; Denies cough Gastrointestinal Gastrointestinal: Reports nausea; Denies vomiting Genitourinary Genitourinary ED: Denies dysuria or hematuria Musculoskeletal Musculoskeletal: Reports back pain; Denies neck pain Integumentary Denies abscess or rash Neurologic Neurologic: Denies headache(s) or weakness Allergic/Immunologic Allergic/Immunologic ED: Denies mouth swelling or urticaria EXAM Physical Exam Const Vital Signs: 12/11/24 18:34 12/11/24 19:28 12/11/24 19:29 Temperature 98.3 F Temperature Source Oral Pulse Rate 70 Respiratory Rate 18 Respiratory Effort Normal Non-Labored Blood Pressure 198/90 H Blood Pressure Mean 126 Pulse Ox 100 Oxygen Delivery Method Room Air Room Air 12/11/24 19:31 12/11/24 20:00 12/11/24 20:53 Temperature Temperature Source Pulse Rate 65 72 67 Respiratory Rate 12 11 L Respiratory Effort Blood Pressure 168/76 H 174/82 H 181/74 H Blood Pressure Mean 106 112 109 Pulse Ox 100 100 100 Oxygen Delivery Method Room Air Room Air 12/11/24 21:08 12/11/24 21:50 12/11/24 22:05 Temperature Temperature Source Pulse Rate 60 78 61 Respiratory Rate 16 18 Respiratory Effort Blood Pressure 187/74 H 140/97 H 144/73 H Blood Pressure Mean 111 96 Pulse Ox 99 98 Oxygen Delivery Method Room Air Room Air 12/12/24 00:00 12/12/24 01:00 12/12/24 01:06 Temperature 98.5 F Temperature Source Pulse Rate 61 60 59 L Respiratory Rate 15 15 15 Respiratory Effort Blood Pressure 160/75 H 156/73 H 156/73 H Blood Pressure Mean 103 100 100 Pulse Ox 99 99 99 Oxygen Delivery Method Room Air Room Air Positive well nourished and well developed General Appearance ED: well developed and NAD HEENT Reports moist mucous membranes normocephalic and atraumatic Neck supple and no JVD Resp normal respiratory effort and clear to auscultation bilaterally Cardio regular rate and regular rhythm GI soft to palpation, non-tender and non-distended Extremity normal to inspection General Extremety ED: Negative for edema or tenderness General Extremity: Negative for edema Neuro oriented x3, CN's II-XII intact bilaterally, no sensory deficits noted and gait normal Sensorium / Orientation: awake and alert Motor Exam: strength 5/5 throughout Psych mental status grossly normal Heart Score History: Slightly/Non-Suspicious ECG: Normal Age: >/= 65 years Risk Factors: >/= 3 Risk Factors or History of CAD Troponin: >1 - <3 Normal Limit Score: 5 MDM MDM MDM Narrative Medical decision making narrative: Differential diagnosis includes cardiac dysrhythmia, cardiac ischemia, pneumonia, bronchitis, electrolyte abnormality, hypertensive urgency, gastroesophageal reflux disease, musculoskeletal pain, and anxiety. EKG will be obtained to assess for cardiac dysrhythmia and cardiac ischemia. Chest x-ray will be obtained to assess for pneumonia and bronchitis. CBC will be obtained to assess for leukocytosis and anemia. Basic metabolic profile will be obtained to assess for electrolyte abnormality and renal function. High-sensitivity troponin will be obtained to assess for cardiac ischemia. 2-hour repeat high-sensitivity troponin will be obtained to assess for ongoing cardiac ischemia. History & Record Review Additional record(s) reviewed:: Prior labs Lab Data Attestation: I reviewed the patient's lab results. Lab results narrative: CBC was reviewed. There is a mild anemia with a hemoglobin of 11.8 and hematocrit 35.0. This is consistent with previous results. Basic metabolic profile was reviewed. Sodium is slightly low at 128 and chloride was slightly low at 92. These are unchanged from previous results. Initial high-sensitivity troponin was reviewed and was slightly elevated at 18. 2-hour repeat high-sensitivity troponin was reviewed and was 23. 4-hour repeat high-sensitivity troponin was slightly increased at 25. Labs: Laboratory Results - last 24 hr 12/11/24 12/11/24 12/11/24 19:00 20:58 22:46 WBC 10.0 RBC 4.12 L Hgb 11.8 L Hct 35.0 L MCV 85.0 MCH 28.6 MCHC 33.7 RDW Std Deviation 39.3 RDW Coeff of [place] 12.7 Plt Count 282 MPV 10.2 Immature Gran % (Auto) 0.500 Neut % (Auto) 72.9 H Lymph % (Auto) 15.3 L [place] % (Auto) 10.2 H Eos % (Auto) 0.5 Baso % (Auto) 0.6 Absolute Neuts (auto) 7.3 Absolute Lymphs (auto) 1.53 Nucleated RBC % 0 Sodium 128 L Potassium 4.1 Chloride 92 L Carbon Dioxide 24.6 Anion Gap 12 BUN 18 Creatinine 0.74 Estim Creat Clear Calc 41.28 L Est GFR (MDRD) Non-Af 84 BUN/Creatinine Ratio 24.0 H Glucose 154 H Calcium 9.5 Troponin T High Sens 18 H Troponin T Hi Sens 2 Hr 23 H Troponin T Hi Sens 4Hr 25 H Radiography Chest X-Ray - ED: 1 View, Read by ED Physician, Read by Radiologist and No Acute Disease Diagnostic Testing: Clinical Impression(s) from Imaging Studies Chest X-Ray 12/11/24 19:15 IMPRESSION: No acute cardiopulmonary abnormalities. Reading Location: [place] [address] Portable 1 view chest x-ray was obtained. On my independent interpretation, lung sun are clear. There is normal cardiac silhouette. Bony thorax is normal. There is no acute process noted. Radiologist also interpreted the x-ray and agrees. EKG Initial EKG: Attestation: I personally reviewed and interpreted this EKG as follows: Interpretation: Sinus Rhythm (71) and No Acute Injury Pattern Comments: EKG was obtained. On my independent interpretation, it showed a normal sinus rhythm with a rate of 71. WI interval, QRS interval, and QTc intervals were all normal. There is left axis deviation at -25. There is left ventricular hypertrophy noted. There are no acute ST or T wave changes. Prior EKG tracings: available for review Prior: Unchanged (01/23/2023) Management Discussion w/another healthcare provider: Hospitalist Treatment and Re-Evaluation :: Patient was given aspirin and sublingual nitroglycerin. Patient's blood pressure improved to 140/97. Patient has a HEART score of 5. Because of the increasing troponins, I recommended admission to the hospital. Patient has not had cardiac catheterization or stress test done for several years. Patient is agreeable with this. Case was discussed with the hospitalist. She will admit the patient to her service. Patient understood and was agreeable with the plan. All questions were answered. Discharge Plan Dx/Rx/DC Orders Clinical Impression: Chest pain, Essential hypertension, H/O coronary artery bypass surgery Disposition Disposition: Acute Care [facility]
--- NOTE | 2024-12-11 19:15 | RAD_ITS ---
PROCEDURE: CHEST 1 VIEW (PORTABLE) 12/11/2024 REASON FOR EXAM: CHEST PAIN TECHNIQUE: Frontal view of the chest. COMPARISON: 02/01/2021. FINDINGS: The heart is normal in size. The mediastinum is normal in contour. Surgical clips overlie the heart. The lungs are clear. No acute osseous abnormalities. Right upper quadrant surgical clips. RAD/Chest 1 View (Portable) IMPRESSION: No acute cardiopulmonary abnormalities. Reading Location: [place] [id number]
[2024-12-11 19:43] LABS: Absolute Lymphocyte Count 1.53 X10^3/uL (0.83-4.51); Absolute Neutrophil Count 7.3 X10^3/uL (2.0-7.7); Basophil# 0.06 X10^3/uL; Basophil% 0.6 % (0-1); Eosinophil# 0.05 X10^3/uL; Eosinophils% 0.5 % (0-5); Hemoglobin 11.8 g/dL (12.0-15.0); Lymphocyte # 1.53 X10^3/ul (0.83-4.51); Lymphocyte % 15.3 % (19-41); Mean Corp Hgb Conc 33.7 g/dL (32-36); Mean Corpuscular Hgb 28.6 pg (27.0-32.0); Mean Platelet Vol. 10.2 fl (6.2-12.0); Monocyte# 1.02 X10^3/uL; Monocyte% 10.2 % (0-10); NRBC Flagged by Analyzer 0 % (0-5); Neutrophil # 7.26 X10^3/uL (2.7-7.7); Neutrophil % 72.9 % (47-70); Platelet Count 282 K/mm3 (150-450); RBC Distribution Width CV 12.7 % (11.6-14.6); RBC Distribution Width SD 39.3 fl (35.1-43.9); Red Blood Count 4.12 M/mm3 (4.2-5.4)
[2024-12-11 19:58] LABS: Anion Gap 12 (5-15); BUN 18 mg/dL (4-19); Calcium,Total 9.5 mg/dL (7.6-11.0); Carbon Dioxide 24.6 mmol/L (21.0-32.0); Chloride 92 mmol/L (98-108); Creatinine, Serum 0.74 mg/dL (0.70-1.20); EST Glomerular Filtration Rate 84 (>60); Estimated Creatinine Clearance 41.28 ml/min (50-250); Glucose 154 mg/dL (70-99); Potassium 4.1 mmol/L (3.3-5.1); Sodium Level 128 mmol/L (133-145); Troponin T High Sensitivity 18 ng/L (<=14)
[2024-12-11] MEDS: Nitroglycerin SL (ED/IMG/CATH) 0.4 MG TABLET SL (21:08)
[2024-12-11 21:51] LABS: Troponin T High Sens 2 HR 23 ng/L (<=14)
[2024-12-11 23:21] LABS: Troponin T High Sens 4 HR 25 ng/L (<=14)
[2024-12-12] VITALS (20 sets, daily range): BP systolic 103–192; BP diastolic 57–84; PULSE 56–71; RESP 11–19; TEMP 36.3–36.9; O2SAT 95–100; BMI 18.4
--- NOTE | 2024-12-12 01:29 | PCM.HP.STD ---
HPI - General General Date of Admission: 12/12/24 Date of Service: 12/12/24 Chief Complaint: Chest pain HPI Narrative BEN ARROYO, is a 79 F who presented to the emergency department [facility] on 12/11/2024 with chief complaint of chest pain. Patient has a strong history of coronary disease with previous bypass and stents. Current heart score is 7. She states she has been getting intermittent chest pain most notably with exertion. She has had increased fatigue and weakness over the last 4 months or so with gradually progressive anginal type symptoms. She states over the last day she has felt fairly poorly and symptoms are consistent but more severe than her previous experience anginal equivalents. As noted, chest pain is predominantly exertional and does seem to micheal some with rest but does not sound like it is completely resolved. She also has associated shortness of breath, nausea, and diaphoresis. She states the pain is pressure-like and substernal. She did get relief with nitroglycerin at home and in the emergency department. Vital signs on presentation showed a temperature of 98.3, heart rate 70, respiratory rate 18, blood pressure was 198/90 and pulse ox was 100% on room air. CBC was overtly unremarkable. Chemistry panel showed hyponatremia at 128. She does have chronic hyponatremia and this is within the realm of her baseline. Your creatinine within normal limits. Glucose was 154 nonfasting. Initial troponin was 18 with a delta of 23 and a 4-hour troponin of 25. EKG is not suggestive of acute ischemia. Chest x-ray is unremarkable. Patient story is strongly suggestive of unstable angina. At the time of my evaluation she was still having some mild substernal chest discomfort so we will place her on a nitro drip and a heparin drip and consult cardiology for anticipated cardiac catheterization. [facility] Medical History Unstable angina Breast cancer Osteopenia Hiatal hernia Osteoarthritis IBS (irritable bowel syndrome) History of hepatitis A Anemia Atherosclerosis of coronary artery of [place] heart without angina pectoris Essential hypertension GERD (gastroesophageal reflux disease) Anxiety Arthritis Hyperlipidemia Hypothyroidism Home Medications ?Medication ?Instructions ?Recorded ?Last Taken ?Type aspirin 81 mg chewable tablet 81 mg PO DAILY@0800 heart 05/30/20 01/26/21 History estradiol 0.01% (0.1 mg/gram) 1 ea vaginal WE supplement 05/30/20 05/28/20 History vaginal cream estradiol 0.5 mg tablet 0.5 mg PO QHS 12/22/20 Unknown History nitroglycerin 0.4 mg sublingual 0.4 mg sublingual Q5M PRN chest 08/02/22 Unknown Rx tablet pain #25 tabs flaxseed oil 1,000 mg capsule 1,000 mg PO DAILY 11/01/23 Unknown History simvastatin 10 mg tablet 10 mg PO DAILY #90 tabs 02/03/24 Unknown Rx lisinopril 10 mg tablet See Rx Instructions .Route 03/12/24 Unknown Rx .COMPLEX #135 tabs cholecalciferol (vitamin D3) 50 50 mcg PO QDAY supplement 05/08/24 Unknown History mcg (2,000 unit) capsule cranberry fruit 400 mg capsule 400 mg PO DAILY 05/08/24 Unknown History levothyroxine 50 mcg tablet 50 mcg PO DAILY 12/11/24 Unknown History Allergy/AdvReac Type Severity Reaction Status Date / Time lactose AdvReac Upset Verified 12/11/24 18:34 Stomach metoprolol AdvReac dizziness Verified 12/11/24 18:34 Penicillins AdvReac Hives Verified 12/11/24 18:34 Family History Sister Breast cancer Grandmother Breast cancer Father CVA (cerebral vascular accident) Myocardial infarction Mother Parkinson's disease Brother Seizures CVA (cerebral vascular accident) Surgical History History of coronary artery stent placement (02/03/21) H/O coronary artery bypass surgery (06/16/99) History of left heart catheterization (01/26/21) History of bilateral breast implants History of shoulder surgery History of hammer toe correction History of bunionectomy History of cholecystectomy History of cataract surgery History of bilateral mastectomy History of right knee surgery History of hysterectomy Social History Smoking Status: Never smoker alcohol intake: never substance use type: does not use what type of physical activity do you participate in: walking frequency: 5-6 times per week ROS Constitutional Constitutional: Reports fatigue, malaise and weakness; Denies anorexia, change in weight, chills, fever(s), night sweats or other Eyes Eyes: Denies blurry vision, change in eye color, change in vision, discharge from eye(s), double vision, erythema, eye pain, loss of vision or other ENT HEENT: Denies abnormal hearing, dysphagia, ear pain, epistaxis, headache(s), hearing loss, nasal congestion, nasal discharge, post nasal drip, sinus pressure, sore throat or other Cardiovascular Cardiovascular: Reports chest pain and other Details: Presyncope and diaphoresis ; Denies claudication, dyspnea on exertion, edema, lightheadedness, orthopnea, palpitations, paroxysmal nocturnal dyspnea, rapid heart rate or syncope Respiratory/Chest Respiratory/Chest: Reports dyspnea; Denies cough, excessive phlegm production, hemoptysis, productive cough, shortness of breath at rest, shortness of breath with exertion, wheezing or other Gastrointestinal Gastrointestinal: Reports nausea; Denies abdominal pain, coffee ground emesis, constipation, diarrhea, dyspepsia, hematemesis, hematochezia, loose stools, melena, vomiting or other Genitourinary Genitourinary: Denies burning urination, difficulty urinating, dysuria, hematuria, nocturia, urinary frequency, urinary hesitancy, urinary incontinence, urinary urgency or other Musculoskeletal Musculoskeletal: Denies arthralgias, back pain, joint pain, joint stiffness, joint swelling, myalgias, neck pain or other Neurologic Neurologic: Denies abnormal gait, abnormal speech, confusion, disequilibrium, dizziness, focal weakness, headache(s), numbness, paresthesias, seizure-like activity, seizures, syncope, tingling, tremor(s) or other Psychiatric Psychiatric: Denies anxiety, depression, homicidal ideation, suicidal ideation or other Endocrine Endocrinology: Denies change in body appearance, cold intolerance, excessive sweating, heat intolerance, polydipsia, polyuria or other Hematologic/Lymphatic Hematologic/Lymphatic: Denies anemia, easy bleeding, easy bruising, lymphadenopathy or other Allergic/Immunologic Allergic/Immunologic: Denies rhinitis, hives, eczemia, asthma or other Vital Signs Vital Signs Vital Signs: 12/11/24 18:34 12/11/24 19:28 12/11/24 19:29 Temperature 98.3 F Temperature Source Oral Pulse Rate 70 Respiratory Rate 18 Respiratory Effort Normal Non-Labored Blood Pressure 198/90 H Blood Pressure Mean 126 Pulse Ox 100 Oxygen Delivery Method Room Air Room Air 12/11/24 19:31 12/11/24 20:00 12/11/24 20:53 Temperature Temperature Source Pulse Rate 65 72 67 Respiratory Rate 12 11 L Respiratory Effort Blood Pressure 168/76 H 174/82 H 181/74 H Blood Pressure Mean 106 112 109 Pulse Ox 100 100 100 Oxygen Delivery Method Room Air Room Air 12/11/24 21:08 12/11/24 21:50 12/11/24 22:05 Temperature Temperature Source Pulse Rate 60 78 61 Respiratory Rate 16 18 Respiratory Effort Blood Pressure 187/74 H 140/97 H 144/73 H Blood Pressure Mean 111 96 Pulse Ox 99 98 Oxygen Delivery Method Room Air Room Air 12/12/24 00:00 12/12/24 01:00 12/12/24 01:06 Temperature 98.5 F Temperature Source Pulse Rate 61 60 59 L Respiratory Rate 15 15 15 Respiratory Effort Blood Pressure 160/75 H 156/73 H 156/73 H Blood Pressure Mean 103 100 100 Pulse Ox 99 99 99 Oxygen Delivery Method Room Air Room Air Weight Weight: 44.4 kg Body Mass Index (BMI) 19.1 Physical Exam Const alert, oriented x3, no apparent distress and well nourished; Negative for average body habitus or healthy appearing Constitutional Narrative: Thin, elderly, white female, sitting up in bed, currently appears comfortable, does not look toxic, seems mildly anxious General Appearance: cooperative HEENT normocephalic, head/scalp atraumatic, hearing grossly normal bilaterally and moist oral mucous membranes HEENT Narrative: Mallampati 2, no thrush Eyes conjunctivae normal Neck supple and no carotid bruits Neck Narrative: Trachea midline Resp normal respiratory effort, no retractions, no use of accessory muscles and clear to auscultation bilaterally Auscultation: Negative for rales, rhonchi or wheezes Cardio regular rate, regular rhythm, S1 normal heart sound, S2 normal heart sound, no murmurs, no rub and no clicks; Negative for no gallops Cardio Narrative: Patient with an S3 gallop GI normal to inspection, nondistended, normoactive bowel sounds, soft to palpation and non-tender GI Narrative: Scaphoid abdomen Extremity no clubbing, cyanosis or edema Extremity Narrative: Right pedal pulse at dorsalis pedis is 2+, left 1+, radial bilaterally 2+ Neuro oriented x3 and moves all extremities Speech: speech normal Psych affect normal Mood & Affect: anxious Results Lab / Micro Data 12/12/24 02:55 12/11/24 19:00 Labs: Laboratory Results - last 24 hr 12/11/24 19:00: WBC 10.0, RBC 4.12 L, Hgb 11.8 L, Hct 35.0 L, MCV 85.0, MCH 28.6, MCHC 33.7, RDW Std Deviation 39.3, RDW Coeff of Niya 12.7, Plt Count 282, MPV 10.2, Immature Gran % (Auto) 0.500, Neut % (Auto) 72.9 H, Lymph % (Auto) 15.3 L, [place] % (Auto) 10.2 H, Eos % (Auto) 0.5, Baso % (Auto) 0.6, Absolute Neuts (auto) 7.3, Absolute Lymphs (auto) 1.53, Nucleated RBC % 0, Sodium 128 L, Potassium 4.1, Chloride 92 L, Carbon Dioxide 24.6, Anion Gap 12, BUN 18, Creatinine 0.74, Estim Creat Clear Calc 41.28 L, Est GFR (MDRD) Non-Af 84, BUN/Creatinine Ratio 24.0 H, Glucose 154 H, Calcium 9.5, Troponin T High Sens 18 H 12/11/24 20:58: Troponin T Hi Sens 2 Hr 23 H 12/11/24 22:46: Troponin T Hi Sens 4Hr 25 H Imaging Radiology Impression Chest X-Ray 12/11/24 19:15 IMPRESSION: No acute cardiopulmonary abnormalities. Reading Location: [place] [id number] Assessment & Plan Assessment/Plan (1) Chest pain: (2) Elevated troponin: (3) Uncontrolled hypertension: PLAN: Plan Unstable angina - Patient with escalating anginal equivalent type symptoms including substernal chest pain with nausea, diaphoresis, and exertional dyspnea - Heart score 7 with patient having previous bypass in 1998 and stent placement with the last being 4 years ago -CABG x 1 AUGUSTINE-LAD 06/16/99 -[id number] 1998; [id number] and mid RCA w/ CARLENE-distal, mid and proximal RCA; FFR LEFT CIRCUMFLEX: Moderate OM disease with FFR = 0.89 02/03/2021 -Preserved ejection fraction of 55% on her most recent echocardiogram from January 2021 - Cycle cardiac enzymes - Nitro drip as patient was still having symptoms at rest the emergency department - Heparin drip -Monitor on telemetry - Continue aspirin - Continue home lisinopril - Continue home statin - Check lipid panel - Consult cardiology--> will call Dr. Hernandez in a.m. to discuss as patient likely needs to go to the [facility] after midnight for anticipated cardiac catheterization Elevated troponin - Suspect related to the above - Cardiology consult pending Uncontrolled hypertension - Blood pressure was markedly elevated on presentation however I suspect this may be related to stiff myocardium related to anginal symptoms - Nitro drip and home medications - As needed hydralazine for systolic pressure greater than 160 Hyperlipidemia - continue on statin - Check lipid panel History of breast cancer - Remote Hypothyroidism - Continue home levothyroxine Suspected malnutrition - Dietitian consult Anxiety - Patient takes no medication at baseline however she does appear anxious on admission DVT prophylaxis - Patient on heparin drip CODE STATUS -DNR CCA okay for short-term intubation after discussion with regards to CODE STATUS and what CPR entails in conjunction with survival rate and functional outcomes Charges/Coding Visit Charges Inpatient E&M: 12905 Init Hosp L2
--- OUTSIDE RECORDS SUMMARY | 2024-12-12 01:44 | XMS RPT_ITS | CCD ---
Author Organization [facility] Care Team Providers Care [employer] Animal Caretaker Name Role Phone Diana Thomason Unavailable [phone] Thomason, Diana Unavailable Unavailable Thomason, Diana Unavailable Unavailable Thomason, Diana Unavailable Unavailable Thomason, Diana Unavailable Unavailable Thomason, Diana Unavailable Unavailable Thomason, Diana Unavailable Unavailable Thomason, Diana M Primary Care Provider Unavaila ble Diana Thomason Primary Care Provider Diana Thomason Primary Care Provider Diana Thomason MD Primary Care Provider Dr. Adela Harley Primary Care Provider Dr. Adela Harley Referring Provider NENA Jenkins Attending Provider Dr. Chuy Espinal Attending Provider [phone] Josesito Valenzuela Attending Provider Dr. Adela Harley Primary Care Provider [phone] Dr. Adela Harley Referring Provider Dr. Chuy Espinal Attending Provider Dr. Josesito Valenzuela Attending Provider Adela Harley MD Primary Care Provider Dr. Adela Harley Primary Care Provider Dr. Adela Harley Referring Provider Prasanna SANTO, LOW Holcomb Attending Provider NENA Escobar Attending Provider Dr. Josesito Valenzuela Attending Provider NENA Kenny Attending Provider Dr. Adela Harley Primary Care Provider [phone] Dr. Adela Harley Referring Provider [phone] Adela Harley MD Primary Care Provider YESSICA GREENE Attending Unavailable ADELA HARLEY Primary Care Unavailable Adela Harley Primary Care Unavailable Aicha Mena NP Referring Unavailable Prasanna SANTO, Aicha Attending Unavailable Adela Harley Primary Care Unavailable Adela Harley Referring Unavailable Adela Harley Attending Unavailable Aicha Mena NP Consulting Unavailable Adela Harley Referring Unavailable Adela Harley Primary Care Unavailable Prasanna SANTO, Aicha Attending Unavailable Adela Harley Referring Unavailable Adela Harley Primary Care Unavailable Prasanna SANTO, Aihca Attending Unavailable Allergies Allergy Classification Reported Allergen(s) Allergy Type Date of Onset Reaction(s) Facility Penicillins (antibiotic) (1 source) Penicillins Drug Allergy 6 [facility] (13 sources) Penicillins; Translations: [PENICILLINS] Propensity to adverse reactions to drug 6 [facility] (20 sources) casein (cow milk) allergenic extract Drug Allergy Abdominal Discomfort [facility] (20 sources) Penicillins Propensity to adverse reactions to drug [facility] (20 sources) *Seasonal Propensity to adverse reactions to substance Runny Nose [facility] (14 sources) Lactose; Translations: [LACTOSE] Drug Allergy 1 Diarrhea [facility] (10 sources) Metoprolol Drug Allergy 2 dizziness [facility] (3 sources) Penicillins Drug Intolerance [address] [facility] Work Phone: (1 source) Lactose Drug Allergy 4 [facility] (1 source) Metoprolol Drug Allergy 4 [facility] (1 source) Penicillins Drug allergy (disorder) 4 [facility] Medications Current Medications Medication Drug Class(es) Dates Sig (Normalized) Sig (Original) aspirin 81 mg chewable tablet (20 sources) Nonsteroidal Anti-inflammatory Drug Start: 05-30-2020 take 81 mg by mouth once daily Aspirin Active 81 MG PO DAILY@0800 May 30, 2020 12:00am aspirin, enteric coated (ASPIRIN, ENTERIC COATED) 81 mg EC tablet Take 81 mg by mouth. Active take 1 tablet by mouth once nickolas y aspirin 81 MG Tab take 81 mg by mouth daily. 0 Active Comment on above: Take 81 mg by mouth. Biotin (1 source) BIOTIN PO Take b y mouth 2 times daily. 0 Active biotin 100 mg/gram powd (3 sources) biotin 100 mg/gr am powd Take by mouth. Active biotin 100 mg/gr am powd Take by mouth. 0 Active Comment on above: Take by mouth. 30 ml bupivacaine hydrochloride 2.5 mg/ml / EPINEPHrine 0.005 mg/ml injection (1 source) alpha-Adrenergic Agonist, beta-Adrenergic Agonist, Catecholamine, Amide Local Anesthetic Start: 02-06-2019 bupivacaine-epinephri ne (MARCAINE;SENSORCAINE W/EPI) 0.25% -[id number] injection calcium chloride 0.0014 meq/ml / potassium chloride 0.004 meq/ml / sodium chloride 0.103 meq/ml / sodium lactate 0.028 meq/ml injectable solution (2 sources) Start: 02-06-2019 lactated ringers IV solution Start: 12-22-2018 lactated ringe rs IV solution cholecalciferol 0.05 mg oral capsule (20 sources) Vitamin D Start: 04-07-2023 take 50 ug by mouth twice daily Cholecalciferol (Vitamin D3) Active 50 MCG PO TWICE A DAY April 07, 2023 8:52am Start: 05-30-2020 End: 04-07-2023 take 50 ug by mouth once daily Cholecalciferol (Vitamin D3) Discontinued 50 MCG PO DAILY May 30, 2020 12:00am April 07, 2023 8:53am take 1 tablet by chen th once daily cholecalciferol, vitamin D3, 400 unit Tab Take 400 Units by mouth daily. 0 Active Cholecalciferol (VITAMIN D3 PO) Take 50 mcg by mouth. 0 Active Cholecalciferol (VITAMIN D3 PO) take by mouth. 0 Active cholecalciferol, vitamin D3, (CHOLECALCIFEROL, VITD3,, BULK,) 100,000 unit/gram powd (3 sources) cholecalciferol, vitamin D3, (CHOLECALCIFEROL, VITD3,, BULK,) 100,000 unit/gram powd Take 50 mcg by mouth. Active cholecalciferol, vitamin D3, (CHOLECALCIFEROL, VITD3,, BULK,) 100,000 unit/gram powd Take 50 mcg by mouth. 0 Active Comment on above: Take 50 mcg by mouth . CRANBERRY CONCENTRATE PO (20 sources) take 2 capsules by mouth once daily CRANBERRY CONCENTRATE PO Take 2 capsules by mouth daily. 0 Active take 4 capsules by mouth once da enoch CRANBERRY CONCENTRATE PO take 4 capsules by mouth daily. 0 Active cranberry preparation 400 mg oral capsule (14 sources) Non-Standardized Food Allergenic Extract, Non-Standardized Plant Allergenic Extract Start: 12-22-2020 take 2 capsules by mouth once daily Cranberry 400 mg cap Take 800 mg by mouth once daily. 12/22/2020 Active Start: 12-22-2020 take 800 mg by mouth once nickolas y Cranberry Active 800 MG PO DAILY December 21, 2020 11:00pm administer with a meal Start: 12-22-2020 take 800 mg by mouth once nickolas y Cranberry Active 800 MG PO DAILY December 22, 2020 12:00am administer with a meal take 1 capsule by mo uth once daily cranberry 400 mg cap Indications: 4 capsules daily Take by mouth daily Reasons4 capsules daily. 0 Active take 1 capsule by mo uth once daily cranberry 400 mg cap Indications: 4 capsules daily Take by mouth daily Reasons4 capsules daily. 0 Active take 1 capsule by mo uth once daily cranberry 400 mg cap Indications: 4 capsules daily Take by mouth daily Reasons4 capsules daily. Active estradiol 0.5 mg oral tablet (20 sources) Estrogen Start: 12-22-2020 take 0.5 mg by mouth at bedtime Estradiol Active 0.5 MG PO AT BEDTIME December 21, 2020 11:00pm Start: 05-30-2020 Estradiol Acti ve 1 EACH VAGINAL WE May 30, 2020 12:00am Start: 05-30-2020 End: 12-22-2020 take 0.5 mg by mouth once daily Estradiol Discontinued 0.5 MG PO DAILY May 30, 2020 12:00am December 22, 2020 2:45pm Start: 09-12-2018 End: 03-03-2020 estradiol 0.1 MG/GM cream Indications: Postmenopausal atrophic vaginitis Insert 0.1 applications vaginally once a week. 1 Tube 3 11/23/2018 Active Start: 01-13-2018 End: 09-12-2018 ESTRADIOL 0.1 MG/GM cream Indications: Postmenopausal atrophic vaginitis insert 1/2 gram vaginally at bedtime if needed 42.5 g 2 01/13/2018 09/12/2018 Discontinued Start: 03-17-2016 End: 03-03-2020 take 1 tablet by mouth once daily estradiol (ESTRACE) 0.5 MG tablet Take 0.5 mg by mouth daily . 0 03/17/2016 Active estradiol (ESTRA CE) 0.01 % (0.1 mg/gram) vaginal cream Insert 2 g into the vagina daily. 0 Active Comment on above: Take 0.5 mg by mouth once daily. Flaxseed Oil (1 source) Non-Standardized Food Allergenic Extract, Non-Standardized Plant Allergenic Extract flaxseed oil Oil by Miscellaneous route. Active Flaxseed Oil Oil (20 sources) Flaxseed Oil Oil 1,000 mg 2 times daily. 0 Active Flaxseed Oil Oil flaxseed oil Oil (2 sources) flaxseed oil Oil by Miscellaneous route. 0 Active Flaxseed Oil oil (3 sources) Flaxseed Oil oil 1,000 mg twice daily. Active Flaxseed Oil oil 1,000 mg twice daily. 0 Active Comment on above: 1,000 mg twice daily . ibuprofen 200 mg oral tablet (20 sources) Nonsteroidal Anti-inflammatory Drug take 1 tablet by mouth every six hours as needed ibuprofen (ADVIL,MOTRIN) 200 MG tablet Take 200 mg by mouth every 6 (six) hours as needed for pain. 0 Active End: 05-04-2019 Ibuprofen (ADVIL PO) take by mouth. 0 05/04/2019 Discontinued Ibuprofen (ADVIL PO) take by mouth. 0 Active linseed oil 1000 mg oral capsule (10 sources) Start: 12-22-2020 take 1000 mg by mouth twice daily at mealtime Flaxseed Oil Active 1000 MG PO TWICE A DAY December 21, 2020 11:00pm administer with meals nitroglycerin 0.4 mg sublingual tablet (20 sources) Nitrate Vasodilator Start: 04-20-2016 End: 08-02-2022 nitroglycerin sublingual (NITROQUICK) 0.4 mg SL tablet Dissolve 0.4 mg under the tongue every 5 minutes as needed. 04/20/2016 Active Start: 04-20-2016 nitroGLYCERIN (NITROSTAT) 0.[address] 1 tablet under the tongue if needed every 5 minutes for rochelle... (REFER TO PRESCRIPTION NOTES). 0 04/20/2016 Active Comment on above: Dissolve 0.4 mg unde r the tongue every 5 minutes as needed. pantoprazole 40 mg delayed release oral tablet (14 sources) Proton Pump Inhibitor Start: 9 End: 9 take 1 tablet by mouth once daily PANTOPRAZOLE [address] tablet DR take 1 tablet by mouth once daily 30 tablet 1 01/09/2019 Active Probiotic Product (PROBIOTIC DAILY PO) (1 source) Probiotic Produc t (PROBIOTIC DAILY PO) Take by mouth 2 times daily. 0 Active raNITIdine 150 mg oral tablet (2 sources) Histamine-2 Receptor Antagonist Start: 9 take 1 tablet by mouth twice daily ranitidine (ZANTAC) 150 MG Tab tablet Indications: Hiatal hernia Take 1 tablet by mouth 2 times daily. 60 tablet 1 03/13/2019 Active simvastatin 10 mg oral tablet (20 sources) HMG-CoA Reductase Inhibitor Start: 4 take 1 tablet by mouth once simvastatin (ZOCOR) 10 mg tablet Take 1 tablet by mouth every afternoon. 04/27/2024 Active Start: 02-19-2022 End: 02-23-2023 take 10 mg by mouth once daily Simvastatin Discontinue d 10 MG PO DAILY August 02, 2022 2:26pm February 23, 2023 4:56pm Start: 03-17-2016 End: 03-13-2019 take 1 tablet by mouth once daily simvastatin (ZOCOR) 40 MG tablet Take 40 mg by mouth daily . 0 03/17/2016 Active sodium chloride 0.154 meq/ml irrigation solution (1 source) Start: 02-06-2019 sodium chlorid e 0.9 % irrigation sucralfate 1000 mg oral tablet (17 sources) Aluminum Complex Start: 10-27-2018 End: 03-13-2019 take 1 tablet by mouth every six hours sucralfate 1 g Tab Indications: Right upper quadrant pain Take 1 tablet by mouth every 6 hours. 60 tablet 3 11/23/2018 Active levothyroxine sodium 0.025 mg oral tablet (20 sources) l-Thyroxine Start: 10-04-2022 take 50 ug by mouth once daily Levothyroxine Active 50 MCG PO DAILY October 04, 2022 8:56am Start: 04-12-2020 take 2 tablets by mo uth once daily levothyroxine (SYNTHROID) 25 mcg tablet Take 50 mcg by mouth once daily. 04/12/2020 Active Start: 04-12-2020 End: 10-04-2022 take 25 ug by mouth once daily Levothyroxine Discontin ued 25 MCG PO DAILY May 30, 2020 12:00am October 04, 2022 8:56am Start: 04-27-2016 End: 03-03-2020 take 1 tablet by mouth once daily levothyroxine (SYNTHROID, LEVOTHROID) 25 MCG tablet Take 25 mcg by mouth once daily . 0 04/27/2016 Active Comment on above: Take 25 mcg by mouth once daily. Completed/Discontinued Medications Medication Drug Class(es) Dates Sig (Normalized) Sig (Original) acetaminophen 325 mg oral tablet (10 sources) Start: 06-01-2020 End: 12-22-2020 take 650 mg by mouth every six hours as needed Acetaminophen Discontinued 650 MG PO EVERY 6 HOURS NEEDED June 01, 2020 12:00am December 22, 2020 2:47pm alendronic acid 70 mg oral tablet (5 sources) Bisphosphonate Start: 10-04-2022 End: 04-07-2023 take 70 mg by mouth every week Alendronate Discontinued 70 MG PO EVERY WEEK October 03, 2022 11:00pm April 07, 2023 8:52am amLODIPine 2.5 mg oral tablet (20 sources) Dihydropyridine Calcium Channel Ajit Start: 01-14-2021 End: 02-04-2021 take 2.5 mg by mouth at bedtime Amlodipine Discontinued 2.5 MG PO AT BEDTIME January 13, 2021 11:00pm February 04, 2021 3:58pm Start: 12-24-2020 End: 01-14-2021 take 5 mg by mouth once daily Amlodipine Discontinued 5 MG PO DAILY 90 December 24, 2020 12:45pm January 14, 2021 12:49pm Start: 05-30-2020 End: 12-24-2020 take 2.5 mg by mouth once daily Amlodipine Discontinue d 2.5 MG PO DAILY May 30, 2020 12:00am December 24, 2020 12:46pm Start: 06-15-2019 End: 03-03-2020 take 1 tablet by mouth once daily amLODIPine 2.5 MG tablet Indications: Essential hypertension Take 1 tablet by mouth daily. 90 tablet 1 03/03/2020 Active Start: 10-26-2018 End: 11-23-2018 take 1 tablet by mouth once daily amLODIPine 2.5 MG Tab tablet Indications: Essential hypertension Take 1 tablet by mouth daily. 90 tablet 1 11/23/2018 Active Bacillus Coagulans (Probiotic (B. Coagulans)) 10 billion cell capsule,delayed release(DR/EC) (10 sources) Start: 12-24-2020 End: 01-23-2023 take 10 capsules by mouth once daily Bacillus Coagulans (Probiotic (B. Coagulans)) 10 billion cell capsule,delayed release(DR/EC) Discontinued 10 CELL PO DAILY December 23, 2020 11:00pm January 23, 2023 5:19pm Start: 12-24-2020 End: 01-23-2023 take 10 capsules by mouth once daily Bacillus Coagulans (Probiotic (B. Coagulans)) 10 billion cell capsule,delayed release(DR/EC) Discontinued 10 CELL PO DAILY December 24, 2020 12:00am January 23, 2023 6:19pm Start: 12-24-2020 take 10 capsules by mouth once daily Bacillus Coagulans (Probiotic (B. Coagulans)) 10 billion cell capsule,delayed release(DR/EC) Active 10 CELL PO DAILY December 23, 2020 11:00pm Start: 12-24-2020 take 10 capsules by mouth once daily Bacillus Coagulans (Probiotic (B. Coagulans)) 10 billion cell capsule,delayed release(DR/EC) Active 10 CELL PO DAILY December 24, 2020 12:00am benzonatate 100 mg oral capsule (3 sources) Non-narcotic Antitussive Start: 09-21-2022 End: 06-25-2024 take 2 capsules by mouth every eight hours as needed benzonatate (TESSALON PERLE) 100 mg capsule Take 2 capsules by mouth three times daily as needed. 30 capsule 09/21/2022 06/25/2024 Discontinued (Course of therapy completed) Comment on above: Take 2 capsules by m out three times daily as needed. ciprofloxacin 500 mg oral tablet (10 sources) Quinolone Antimicrobial Start: 06-01-2020 End: 06-06-2020 take 500 mg by mouth twice daily Ciprofloxacin Hcl Discontinued 500 MG PO TWICE A DAY 10 June 01, 2020 12:00am June 06, 2020 12:03am clopidogrel 75 mg oral tablet (20 sources) [id number] Platelet Inhibitor Start: 04-21-2021 End: 06-25-2024 clopidogrel (PLAVIX) 75 mg tablet TAKE 4 TABLETS BY MOUTH A SINGLE DOSE FOR A LOADING DOSE ON 10... (REFER TO PRESCRIPTION NOTES). 04/21/2021 06/25/2024 Discontinued (Course of therapy completed) Start: 04-20-2021 End: 04-07-2023 take 1 tablet by mouth once daily Clopidogrel (Plavix) 75 mg tablet Discontinued 75 MG PO DAILY August 02, 2022 2:26pm October 04, 2022 9:43am Comment on above: TAKE 4 TABLETS BY [facility] A SINGLE DOSE FOR A LOADING DOSE ON 10... (REFER TO PRESCRIPTION NOTES). diphenhydrAMINE hydrochloride 25 mg oral capsule (10 sources) Histamine-1 Receptor Antagonist Start: End: take 25 mg by mouth at bedtime Diphenhydramine Hcl Discontinued 25 MG PO AT BEDTIME May 30, 2020 12:00am June 01, 2020 10:40am docusate sodium 100 mg oral capsule (17 sources) Start: End: take 100 mg by mouth three times daily Docusate Sodium Discontinued 100 MG PO THREE TIMES A DAY December 21, 2020 11:00pm December 24, 2020 12:07pm take 1 capsule by mouth twice da enoch docusate sodium (COLACE) 100 MG capsule Take 100 mg by mouth 2 (two) times a day. 0 Active take 1 capsule by mo ut three times daily as needed docusate (STOOL SOFTENER) 100 MG Cap capsule Take 100 mg by mouth 3 times daily as needed. 0 Active doxycycline monohydrate 100 mg oral capsule (10 sources) Tetracycline-class Drug Start: 09-11-2021 End: 01-06-2022 take 100 mg by mouth twice daily Doxycycline Monohydrate Discontinued 100 MG PO TWICE A DAY September 11, 2021 12:00am January 06, 2022 10:14am ferrous sulfate 325 mg oral tablet (10 sources) Start: 12-22-2020 End: 12-24-2020 take 325 mg by mouth once daily Ferrous Sulfate Discontinued 325 MG PO DAILY December 21, 2020 11:00pm December 24, 2020 12:06pm L.Acidoph, Paracasei,B. Lactis (10 sources) Start: 05-30-2020 End: 12-22-2020 L.Acidoph, Paracasei,B. Lactis Discontinued 1 EACH PO DAILY May 30, 2020 12:00am December 22, 2020 2:46pm Start: 05-30-2020 End: 12-22-2020 L.Acidoph, Paracasei,B. Lact is Discontinued 1 EACH PO DAILY May 30, 2020 1:00am December 22, 2020 3:46pm lisinopril 10 mg oral tablet (20 sources) Angiotensin Converting Enzyme Inhibitor Start: 06-19-2021 End: 03-17-2023 Lisinopril Discontinued 0 .ROUTE .COMPLEX 135 August 02, 2022 2:26pm March 17, 2023 2:26pm take 1 AND 1/2 tablets by mouth once daily Start: 06-19-2021 End: 06-19-2021 take 15 mg by mouth once daily Lisinopril Discontinued 10 MG PO DAILY June 19, 2021 12:59pm June 19, 2021 1:09pm 15 mg daily Start: 03-30-2021 End: 06-19-2021 take 10 mg by mouth once daily Lisinopril Discontinued 10 MG PO DAILY March 30, 2021 9:57am June 19, 2021 1:00pm Start: 01-14-2021 End: 03-30-2021 take 15 mg by mouth once daily Lisinopril Discontinued 15 MG PO DAILY February 04, 2021 11:00pm March 30, 2021 9:58am Start: 12-24-2020 End: 01-14-2021 take 10 mg by mouth once daily Lisinopril Discontinued 10 MG PO DAILY December 24, 2020 12:44pm January 14, 2021 12:50pm Start: 05-30-2020 End: 12-24-2020 take 15 mg by mouth once daily Lisinopril Discontinued 15 MG PO DAILY May 30, 2020 12:00am December 24, 2020 12:46pm Start: 09-03-2019 End: 03-03-2020 take 1.5 tablets by mouth once daily lisinopril 10 MG tablet Indications: Essential hypertension Take 1.5 tablets by mouth daily. 135 tablet 1 03/03/2020 Active Start: 05-15-2019 End: 09-03-2019 LISINOPRIL 10 MG Tab tablet TAKE 1 AND 1/2 TABLETS BY MOUTH DAILY 135 tablet 1 05/15/2019 09/03/2019 Discontinued (Reorder) Start: 03-13-2019 take 1.5 tablets by mouth once daily lisinopril 10 MG Tab tablet Indications: Essential hypertension Take 1.5 tablets by mouth daily. 90 tablet 0 03/13/2019 Active Start: 09-12-2018 End: 01-12-2019 take 1.5 tablets by mouth once daily lisinopril 10 MG Tab tablet Indications: Atherosclerosis of coronary artery bypass graft of [place] heart without angina pectoris , Essential hypertension Take 1.5 tablets by mouth daily. 90 tablet 1 09/12/2018 01/12/2019 Discontinued (Reorder) Start: 03-14-2018 End: 09-05-2018 take 1.5 tablets by mouth once daily lisinopril 10 MG Tab tablet Indications: Atherosclerosis of coronary artery bypass graft of [place] heart without angina pectoris , Essential hypertension Take 1.5 tablets by mouth daily. 135 tablet 1 03/14/2018 09/05/2018 Discontinued Start: 05-03-2016 End: 03-13-2019 LISINOPRIL 10 MG Tab tablet Indications: Essential hypertension TAKE 1 AND 1/2 TABLETS BY MOUTH DAILY 90 tablet 0 01/12/2019 03/13/2019 Discontinued (Reorder) Comment on above: Take 10 mg by mouth once daily. Take 1.5 tablets daily metoprolol tartrate 25 mg oral tablet (13 sources) beta-Adrenergic Ajit Start: 02-04-2021 End: 02-05-2021 take 25 mg by mouth twice daily Metoprolol Tartrate Discontinued 25 MG PO TWICE A DAY February 03, 2021 11:00pm February 05, 2021 12:58pm Start: 02-16-2016 take 1 tablet by chen th once daily metoprolol tartrate (LOPRESSOR) 25 MG tablet Take 25 mg by mouth daily . 0 02/16/2016 Active metroNIDAZOLE 500 mg oral tablet (10 sources) Nitroimidazole Antimicrobial Start: 06-01-2020 End: 06-06-2020 take 500 mg by mouth three times daily Metronidazole Discontinued 500 MG PO THREE TIMES A DAY 15 11June 01, 2020 12:00am June 06, 2020 12:03am omeprazole 20 mg delayed release oral capsule (19 sources) Proton Pump Inhibitor Start: 11-23-2018 End: 03-13-2019 take 1 capsule by mouth twice daily omeprazole (PRILOSEC) [address] capsule Indications: Right upper quadrant pain Take 1 capsule by mouth 2 times daily. 60 capsule 1 11/23/2018 03/13/2019 Discontinued Start: 10-27-2018 End: 11-23-2018 take 1 capsule by mouth once daily omeprazole (PRILOSEC) [address] capsule Indications: Right upper quadrant pain Take 1 capsule by mouth daily. 30 capsule 1 10/27/2018 11/23/2018 Discontinued Start: 10-26-2018 End: 10-27-2018 take 1 capsule by mouth once daily omeprazole [address] capsule Indications: Epigastric pain Take 1 capsule by mouth daily. 30 capsule 1 10/26/2018 10/27/2018 Discontinued rosuvastatin calcium 20 mg oral tablet (19 sources) HMG-CoA Reductase Inhibitor Start: 05-09-2020 End: 06-25-2024 take 1 tablet by mouth once daily rosuvastatin (CRESTOR) 20 mg tablet Take 20 mg by mouth once daily. 05/09/2020 06/25/2024 Discontinued (Course of therapy completed) Start: 03-13-2019 End: 03-03-2020 take 1 tablet by mouth once daily rosuvastatin 20 MG tablet Indications: Atherosclerosis of coronary artery bypass graft of [place] heart without angina pectoris , Pure hypercholesterolemia Take 1 tablet by mouth daily. 90 tablet 1 03/03/2020 Active Comment on above: Take 20 mg by mouth once daily. ticagrelor 90 mg oral tablet (20 sources) Start: 02-04-2021 End: 04-20-2021 take 1 tablet by mouth twice daily Ticagrelor (Brilinta) 90 mg tablet Discontinued 90 MG PO TWICE A DAY 60 March 30, 2021 10:16am April 20, 2021 3:44pm Problems Active Problems Problem Classification Problem Date Documented Date Episodic/Chronic Abdominal hernia (1 source) Hiatal hernia; Translations: [Hiatal hernia] Episodic Abdominal pain (20 sources) Right upper quadrant pain; Translations: [Epigastric pain] Onset: 01-24-2019 Resolved: 03-13-2019 03-22-2017 Episodic Cancer of breast (10 sources) Malignant tumor of breast ; Translations: [Malignant neoplasm of unspecified site of unspecified female breast] 12-23-2020 Chronic Cardiac dysrhythmias (20 sources) Drug-induced bradycardia; Translations: [Bradycardia, drug induced] Onset: 06-21-2017 06-21-2017 Chronic Complication of device; implant or graft (20 sources) Arteriosclerosis of coronary artery bypass graft; Translations: [Atherosclerosis of coronary artery bypass graft without angina pectoris] 03-22-2017 Chronic Coronary atherosclerosis and other heart disease (20 sources) History of coronary artery bypass grafting; Translations: [Presence of aortocoronary bypass graft] Onset: 06-16-1999 01-08-2019 Episodic Disorders of lipid metabolism (20 sources) Hyperlipidemia; Translations: [Pure hypercholesterolemia] Onset: 10-20-2016 Resolved: 03-29-2017 10-20-2016 Chronic Esophageal disorders (1 source) Gastro-esophageal reflux disease without esophagitis; Translations: [Gastroesophageal reflux disease without esophagitis] Chronic Essential hypertension (20 sources) Hypertensive disorder; Translations: [Essential hypertension] Onset: 10-20-2016 10-20-2016 Chronic Fluid and electrolyte disorders (7 sources) Hyponatremia; Translations: [Acute hyponatremia] 01-23-2023 Episodic Joint disorders and dislocations; trauma-related (2 sources) Unspecified internal derangement of left knee; Translations: [Unspecified internal derangement of knee] Chronic Menopausal disorders (20 sources) Atrophic vaginitis; Translations: [Postmenopausal atrophic vaginitis] 03-22-2017 Chronic Noninfectious gastroenteritis (10 sources) Acute gastroenteritis; Translations: [Noninfective gastroenteritis and colitis, unspecified] 12-22-2020 Episodic Open wounds of extremities (10 sources) Cat bite - wound; Translations: [Open bite of right hand, initial encounter] 09-19-2021 Episodic Osteoarthritis (20 sources) Osteoarthritis; Translations: [Osteoarthritis of left knee joint] 03-22-2017 Chronic Osteoporosis (1 source) Age-related osteoporosis without current pathological fracture; Translations: [Age-related osteoporosis without current pathological fracture] Onset: 09-05-2024 Chronic Other bone disease and musculoskeletal deformities (20 sources) Disorder of bone; Translations: [Disorder of bone, unspecified] 03-22-2017 Episodic Other circulatory disease (20 sources) Raynaud's disease; Translations: [Raynaud's syndrome without gangrene] Onset: 10-20-2016 10-20-2016 Chronic Other injuries and conditions due to external causes (10 sources) Puncture wound - injury; Translations: [Other injury of unspecified body region, initial encounter] 09-19-2021 Episodic Other liver diseases (20 sources) Inflammatory disease of liver; Translations: [Hepatitis] 03-22-2017 Chronic Other non-traumatic joint disorders (20 sources) Joint pain; Translations: [Pain in unspecified joint] 03-22-2017 Episodic Other non-traumatic joint disorders (4 sources) Pain in left knee; Translations: [Pain in joint, lower leg] Episodic Other non-traumatic joint disorders (5 sources) Ankle pain; Translations: [Pain in left ankle and joints of left foot] 10-20-2022 Episodic Other non-traumatic joint disorders (2 sources) Pain in left ankle and joints of left foot; Translations: [Pain in joint, ankle and foot] 10-20-2022 Episodic Other nutritional; endocrine; and metabolic disorders (20 sources) Body mass index less than 20; Translations: [Body mass index (BMI) 19 or less, adult] 03-22-2017 Episodic Other screening for suspected conditions (not mental disorders or infectious disease) (10 sources) Thallium stress test abnormal; Translations: [Abnormal result of other cardiovascular function study] 01-26-2021 Episodic Other upper respiratory infections (1 source) Upper respiratory infection; Translations: [Acute upper respiratory infection, unspecified] Episodic Prolapse of female genital organs (20 sources) Cystocele; Translations: [Female bladder prolapse] 03-22-2017 Chronic Residual codes; unclassified (20 sources) Postmenopausal state; Translations: [Post-menopausal] 03-22-2017 Episodic Skin and subcutaneous tissue infections (10 sources) Cellulitis of hand; Translations: [Cellulitis of right upper limb] 09-19-2021 Episodic Spondylosis; intervertebral disc disorders; other back problems (20 sources) Sciatica; Translations: [Sciatica, right side] 03-22-2017 Episodic Sprains and strains (7 sources) Sprain of ankle; Translations: [Sprain of unspecified ligament of left ankle, initial encounter] 10-21-2022 Episodic Thyroid disorders (20 sources) Hypothyroidism; Translations: [Acquired hypothyroidism] 03-22-2017 Chronic Unclassified (3 sources) Drug therapy finding; Translations: [Hormone replacement therapy (postmenopausal)] 03-22-2017 Varicose veins of lower extremity (8 sources) Varicose veins of lower limb co-occurrent with edema; Translations: [Varicose veins of left lower extremity with other complications] 11-11-2022 Episodic Past or Other Problems Problem Classification Problem Date Documented Da te Episodic/Chronic Complication of device; implant or graft (14 sources) Coronary stent occluded; Translations: [Coronary stent occlusion, sequela] Onset: 01-08-2019 01-08-2019 Episodic Coronary atherosclerosis and other heart disease (20 sources) Coronary arteriosclerosis; Translations: [Coronary atherosclerosis] Onset: 10-20-2016 Resolved: 02-04-2021 10-20-2016 Chronic Nonspecific chest pain (12 sources) Chest pain; Translations: [Chest pain, unspecified] Onset: 02-01-2021 Resolved: 02-04-2021 02-04-2021 Episodic Residual codes; unclassified (14 sources) Family history of ischemic heart disease and other diseases of the circulatory system; Translations: [Family history of coronary artery disease] Onset: 01-08-2019 Resolved: 03-13-2019 01-08-2019 Episodic Residual codes; unclassified (10 sources) History of cardiac catheterization; Translations: [Other specified postprocedural states] Onset: 01-26-2021 01-26-2021 Episodic Unclassified (16 sources) Patient encounter status; Translations: [Pre-operative cardiovascular examination] Onset: 01-08-2019 Resolved: 03-13-2019 01-08-2019 Results Test Name Value Interpretation Reference Range Facility Bilirubin, Directon 08-27-19 25 Bilirubin.direct [Mass/Vol] 0.19 mg/dL Normal 0.00-0.30 [facility] Comment on above: Order Comment: LIBBY JOVEL ORDERED LIVER, LIPID MIEDEL ORDERED TSH,CMP,CBCD Performed By: #### L 500.4050, L500.4100, L100.0100, L501.9520, L501.4700 #### [facility] [address] [place], [address] CBC W/Diff, Automatedon 08-05 Absolute Lymph 1.53 X10 3/uL Normal 0.83-4.51 [facility] Comment on above: Order Comment: LIBBY JOVEL ORDERED LIVER, LIPID MIEDEL ORDERED TSH,CMP,CBCD Performed By: #### L 500.4050, L500.4100, L100.0100, L501.9520, L501.4700 #### [facility] [address] [facility] [place], [address] Absolute Neut 6.9 X10 3/uL Normal 2.0-7.7 [facility] Comment on above: Order Comment: LIBBY JOVEL ORDERED LIVER, LIPID MIEDEL ORDERED TSH,CMP,CBCD Performed By: #### L 500.4050, L500.4100, L100.0100, L501.9520, L501.4700 #### [facility] [address] [facility], [address] Basophils/100 WBC (Bld) 0.5 % Normal 0-1 [facility] Comment on above: Order Comment: LIBBY JOVEL ORDERED LIVER, LIPID MIEDEL ORDERED TSH,CMP,CBCD Performed By: #### L 500.4050, L500.4100, L100.0100, L501.9520, L501.4700 #### [facility] [address] [place], [address] Eosinophils/100 WBC (Bld) 0.8 % Normal 0-5 [facility] Comment on above: Order Comment: LIBBY JOVEL ORDERED LIVER, LIPID MIEDEL ORDERED TSH,CMP,CBCD Performed By: #### L 500.4050, L500.4100, L100.0100, L501.9520, L501.4700 #### [facility] [address] [place], [address] Erythrocyte distribution width (RBC) [Ratio] 13.2 % Normal 11.6-14.6 [facility] Comment on above: Order Comment: LIBBY TS ORDERED LIVER, LIPID MIEDEL ORDERED TSH,CMP,CBCD Performed By: #### L 500.4050, L500.4100, L100.0100, L501.9520, L501.4700 #### [facility] [address] [place], [address] Hematocrit (Bld) [Volume fraction] 36.7 % Low 37-47 [facility] Comment on above: Order Comment: LIBBY TS ORDERED LIVER, LIPID MIEDEL ORDERED TSH,CMP,CBCD Performed By: #### L 500.4050, L500.4100, L100.0100, L501.9520, L501.4700 #### [facility] [address] [facility] [place], [address] Hemoglobin (Bld) [Mass/Vol] 11.9 g/dL Low 12.0-15.0 [facility] Comment on above: Order Comment: LIBBY TS ORDERED LIVER, LIPID MIEDEL ORDERED TSH,CMP,CBCD Performed By: #### L 500.4050, L500.4100, L100.0100, L501.9520, L501.4700 #### [facility] [address] [facility] [place], [address] IG% 0.400 Normal 0.0-0.9 [facility] Comment on above: Order Comment: LIBBY TS ORDERED LIVER, LIPID MIEDEL ORDERED TSH,CMP,CBCD Result Comment: IG% - Immature Granulocytes (promyelocytes, myelocytes and metamyelocytes) > 1% indicates that a LEFT SHIFT is Present. Performed By: #### L 500.4050, L500.4100, L100.0100, L501.9520, L501.4700 #### [facility] [address] [place], [address] Lymphocytes/100 WBC (Bld) 15.7 % Low 19-41 [facility] Comment on above: Order Comment: LIBBY JOVEL ORDERED LIVER, LIPID MIEDEL ORDERED TSH,CMP,CBCD Performed By: #### L 500.4050, L500.4100, L100.0100, L501.9520, L501.4700 #### [facility] [address] [place], [address] MCH (RBC) [Entitic mass] 28.7 pg Normal 27.0-32.0 [facility] Comment on above: Order Comment: LIBBY JOVEL ORDERED LIVER, LIPID MIEDEL ORDERED TSH,CMP,CBCD Performed By: #### L 500.4050, L500.4100, L100.0100, L501.9520, L501.4700 #### [facility] [address] [place], [address] MCHC (RBC) [Mass/Vol] 32.4 g/dL Normal 32-36 [facility] Comment on above: Order Comment: LIBBY JOVEL ORDERED LIVER, LIPID MIEDEL ORDERED TSH,CMP,CBCD Performed By: #### L 500.4050, L500.4100, L100.0100, L501.9520, L501.4700 #### [facility] [address] [place], [address] MCV (RBC) [Entitic vol] 88.4 fL Normal 81-99 [facility] Comment on above: Order Comment: LIBBY TS ORDERED LIVER, LIPID MIEDEL ORDERED TSH,CMP,CBCD Performed By: #### L 500.4050, L500.4100, L100.0100, L501.9520, L501.4700 #### [facility] [address] [place], [address] Monocytes/100 WBC (Bld) 12.3 % High 0-10 [facility] Comment on above: Order Comment: LIBBY JOVEL ORDERED LIVER, LIPID MIEDEL ORDERED TSH,CMP,CBCD Performed By: #### L 500.4050, L500.4100, L100.0100, L501.9520, L501.4700 #### [facility] [address] [place], [address] Neutrophils/100 WBC (Bld) 70.3 % High 47-70 [facility] Comment on above: Order Comment: LIBBY JOVEL ORDERED LIVER, LIPID MIEDEL ORDERED TSH,CMP,CBCD Performed By: #### L 500.4050, L500.4100, L100.0100, L501.9520, L501.4700 #### [facility] [address] [place], [address] Nucleated RBC (Bld) [#/Vol] 0 10*3/uL Normal 0-5 [facility] Comment on above: Order Comment: LIBBY JOVEL ORDERED LIVER, LIPID MIEDEL ORDERED TSH,CMP,CBCD Performed By: #### L 500.4050, L500.4100, L100.0100, L501.9520, L501.4700 #### [facility] [address] [place], [address] Platelet mean volume (Bld) [Entitic vol] 9.5 fL Normal 6.2-12.0 [facility] Comment on above: Order Comment: LIBBY JOVEL ORDERED LIVER, LIPID MIEDEL ORDERED TSH,CMP,CBCD Performed By: #### L 500.4050, L500.4100, L100.0100, L501.9520, L501.4700 #### [facility] [address] [place], [address] Platelets (Bld) [#/Vol] 331 10*3/uL Normal 150-450 [facility] Comment on above: Order Comment: LIBBY JOVEL ORDERED LIVER, LIPID MIEDEL ORDERED TSH,CMP,CBCD Performed By: #### L 500.4050, L500.4100, L100.0100, L501.9520, L501.4700 #### [facility] [address] [place], [address] RBC (Bld) [#/Vol] 4.15 10*6/uL Low 4.2-5.4 [facility] Comment on above: Order Comment: LIBBY JOVEL ORDERED LIVER, LIPID MIEDEL ORDERED TSH,CMP,CBCD Performed By: #### L 500.4050, L500.4100, L100.0100, L501.9520, L501.4700 #### [facility] [address] [place], [address] RDW SD 42.9 fl Normal 35.1-43.9 [facility] Comment on above: Order Comment: LIBBY JOVEL ORDERED LIVER, LIPID MIEDEL ORDERED TSH,CMP,CBCD Performed By: #### L 500.4050, L500.4100, L100.0100, L501.9520, L501.4700 #### [facility] [address] [place], [address] WBC (Bld) [#/Vol] 9.8 10*3/uL Normal 4.4-11.0 [facility] Comment on above: Order Comment: LIBBY MED ORDERED LIVER, LIPID MIEDEL ORDERED TSH,CMP,CBCD Performed By: #### L 500.4050, L500.4100, L100.0100, L501.9520, L501.4700 #### [facility] [address] [place], [address] Comprehensive Metabolic Prof ilon 08-27-2024 Albumin [Mass/Vol] 3.6 g/dL Normal 3.2-5.0 [facility] Comment on above: Order Comment: LIBBY JOVEL ORDERED LIVER, LIPID MIEDEL ORDERED TSH,CMP,CBCD Performed By: #### L 500.4050, L500.4100, L100.0100, L501.9520, L501.4700 #### [facility] [address] [place], [address] Albumin/Globulin [Mass ratio] 0.8 {ratio} Low 0.9-2.4 [facility] Comment on above: Order Comment: LIBBY JOVEL ORDERED LIVER, LIPID MIEDEL ORDERED TSH,CMP,CBCD Performed By: #### L 500.4050, L500.4100, L100.0100, L501.9520, L501.4700 #### [facility] [address] [place], [address] ALK P 54 U/L Normal 45-117 [facility] Comment on above: Order Comment: LIBBY JOVEL ORDERED LIVER, LIPID MIEDEL ORDERED TSH,CMP,CBCD Performed By: #### L 500.4050, L500.4100, L100.0100, L501.9520, L501.4700 #### [facility] [address] [place], [address] ALT [Catalytic activity/Vol] 15 U/L Normal 13-56 [facility] Comment on above: Order Comment: LIBBY JOVEL ORDERED LIVER, LIPID MIEDEL ORDERED TSH,CMP,CBCD Performed By: #### L 500.4050, L500.4100, L100.0100, L501.9520, L501.4700 #### [facility] [address] [place], [address] AST [Catalytic activity/Vol] 24 U/L Normal 15-37 [facility] Comment on above: Order Comment: LIBBY JOVEL ORDERED LIVER, LIPID MIEDEL ORDERED TSH,CMP,CBCD Performed By: #### L 500.4050, L500.4100, L100.0100, L501.9520, L501.4700 #### [facility] [address] [place], [address] Bilirubin [Mass/Vol] 0.80 mg/dL Normal 0.20-1.00 [facility] Comment on above: Order Comment: LIBBY JOVEL ORDERED LIVER, LIPID MIEDEL ORDERED TSH,CMP,CBCD Result Comment: For patients on eltrombopag therapy, use of Dimension [place] TBIL is not recommended. Performed By: #### L 500.4050, L500.4100, L100.0100, L501.9520, L501.4700 #### [facility] [address] [place], [address] BUN/CRE 17.3 RATIO Normal 10-20 [facility] Comment on above: Order Comment: LIBBY JOVEL ORDERED LIVER, LIPID MIEDEL ORDERED TSH,CMP,CBCD Performed By: #### L 500.4050, L500.4100, L100.0100, L501.9520, L501.4700 #### [facility] [address] [place], [address] CA,Total 9.2 mg/dL Normal 8.5-10.1 [facility] Comment on above: Order Comment: LIBBY JOVEL ORDERED LIVER, LIPID MIEDEL ORDERED TSH,CMP,CBCD Performed By: #### L 500.4050, L500.4100, L100.0100, L501.9520, L501.4700 #### [facility] [address] [place], [address] Chloride [Moles/Vol] 99 mmol/L Normal 98-107 [facility] Comment on above: Order Comment: LIBBY JOVEL ORDERED LIVER, LIPID MIEDEL ORDERED TSH,CMP,CBCD Performed By: #### L 500.4050, L500.4100, L100.0100, L501.9520, L501.4700 #### [facility] [address] [place], [address] CO2 [Moles/Vol] 26.0 mmol/L Normal 21.0-32.0 [facility] Comment on above: Order Comment: LIBBY JOVEL ORDERED LIVER, LIPID MIEDEL ORDERED TSH,CMP,CBCD Performed By: #### L 500.4050, L500.4100, L100.0100, L501.9520, L501.4700 #### [facility] [address] [place], [address] Creatinine [Mass/Vol] 0.70 mg/dL Normal 0.55-1.02 [facility] Comment on above: Order Comment: LIBBY JOVEL ORDERED LIVER, LIPID MIEDEL ORDERED TSH,CMP,CBCD Result Comment: The validity of the calculated GFR GFRAA in patients over 70 years has not been determined. Clinical correlation is essential. Performed By: #### L 500.4050, L500.4100, L100.0100, L501.9520, L501.4700 #### [facility] [address] [place], [address] EST GFR - AA 105 mL/min Normal >60 [facility] Comment on above: Order Comment: LIBBY JOVEL ORDERED LIVER, LIPID MIEDEL ORDERED TSH,CMP,CBCD Result Comment: Afri can [place] GFR Calc Performed By: #### L 500.4050, L500.4100, L100.0100, L501.9520, L501.4700 #### [facility] [address] [place], [address] GAP 9 Normal 5-15 [facility] Comment on above: Order Comment: LIBBY JOVEL ORDERED LIVER, LIPID MIEDEL ORDERED TSH,CMP,CBCD Performed By: #### L 500.4050, L500.4100, L100.0100, L501.9520, L501.4700 #### [facility] [address] [place], [address] GFR/1.73 sq M.predicted among non-blacks MDRD (S/P/Bld) [Vol rate/Area] 87 mL/min/{1.73_m2} Normal >60 [facility] Comment on above: Order Comment: LIBBY JOVEL ORDERED LIVER, LIPID MIEDEL ORDERED TSH,CMP,CBCD Result Comment: Non- GFR Calc Performed By: #### L 500.4050, L500.4100, L100.0100, L501.9520, L501.4700 #### [facility] [address] [place], [address] Globulin (S) [Mass/Vol] 4.4 g/dL High 2.2-4.2 [facility] Comment on above: Order Comment: LIBBY MED ORDERED LIVER, LIPID MIEDEL ORDERED TSH,CMP,CBCD Performed By: #### L 500.4050, L500.4100, L100.0100, L501.9520, L501.4700 #### [facility] [address] [place], [address] Glucose [Mass/Vol] 89 mg/dL Normal 74-106 [facility] Comment on above: Order Comment: LIBBY JOVEL ORDERED LIVER, LIPID MIEDEL ORDERED TSH,CMP,CBCD Performed By: #### L 500.4050, L500.4100, L100.0100, L501.9520, L501.4700 #### [facility] [address] [place], [address] Potassium [Moles/Vol] 3.9 mmol/L Normal 3.5-5.1 [facility] Comment on above: Order Comment: LIBBY MED ORDERED LIVER, LIPID MIEDEL ORDERED TSH,CMP,CBCD Performed By: #### L 500.4050, L500.4100, L100.0100, L501.9520, L501.4700 #### [facility] [address] [place], [address] Sodium [Moles/Vol] 133 mmol/L Low 136-145 [facility] Comment on above: Order Comment: LIBBY MED ORDERED LIVER, LIPID MIEDEL ORDERED TSH,CMP,CBCD Performed By: #### L 500.4050, L500.4100, L100.0100, L501.9520, L501.4700 #### [facility] [address] [place], [address] T PROT 8.0 g/dL Normal 6.4-8.2 [facility] Comment on above: Order Comment: LIBBY JOVEL ORDERED LIVER, LIPID MIEDEL ORDERED TSH,CMP,CBCD Performed By: #### L 500.4050, L500.4100, L100.0100, L501.9520, L501.4700 #### [facility] [address] [place], [address] Urea nitrogen [Mass/Vol] 12 mg/dL Normal 7-18 [facility] Comment on above: Order Comment: LIBBY JOVEL ORDERED LIVER, LIPID MIEDEL ORDERED TSH,CMP,CBCD Performed By: #### L 500.4050, L500.4100, L100.0100, L501.9520, L501.4700 #### [facility] [address] [place], [address] Lipid Profileon 08-27-2024 Cholesterol [Mass/Vol] 156 mg/dL Normal 200 [facility] Comment on above: Order Comment: LIBBY JOVEL ORDERED LIVER, LIPID MIEDEL ORDERED TSH,CMP,CBCD Result Comment: <200 mg/dL Desirable 200-240 mg/dL Borderline >240 mg/dL High Risk Performed By: #### L 500.4050, L500.4100, L100.0100, L501.9520, L501.4700 #### [facility] [address] [place], [address] Cholesterol in HDL [Mass/Vol] 75 mg/dL Normal [facility] Comment on above: Order Comment: LIBBY JOVEL ORDERED LIVER, LIPID MIEDEL ORDERED TSH,CMP,CBCD Result Comment: The drugs N-Acetylcysteine and Metamizole may falsely depress this assay. Reference Range HDL <40 mg/dL Low HDL Cholesterol HDL >or= 60 mg/dL High HDL Cholesterol Performed By: #### L 500.4050, L500.4100, L100.0100, L501.9520, L501.4700 #### [facility] [address] [place], [address] Cholesterol in LDL [Mass/Vol] 56 mg/dL Normal 0-130 [facility] Comment on above: Order Comment: LIBBY JOVEL ORDERED LIVER, LIPID MIEDEL ORDERED TSH,CMP,CBCD Performed By: #### L 500.4050, L500.4100, L100.0100, L501.9520, L501.4700 #### [facility] [address] [place], [address] Cholesterol in VLDL [Mass/Vol] 25 mg/dL Normal 5-40 [facility] Comment on above: Order Comment: LIBBY JOVEL ORDERED LIVER, LIPID MIEDEL ORDERED TSH,CMP,CBCD Performed By: #### L 500.4050, L500.4100, L100.0100, L501.9520, L501.4700 #### [facility] [address] [facility] [place], [address] Triglyceride [Mass/Vol] 127 mg/dL Normal [facility] Comment on above: Order Comment: LIBBY JOVEL ORDERED LIVER, LIPID MIEDEL ORDERED TSH,CMP,CBCD Result Comment: The drugs N-Acetylcysteine and Metamizole may falsely depress this assay. Serum Triglycerides Reference Interval Normal <150 mg/dL Borderline high 150 - 199 mg/dL High 200 - 499 mg/dL Very High > or = 500 mg/dL Performed By: #### L 500.4050, L500.4100, L100.0100, L501.9520, L501.4700 #### [facility] [address] [place], [address] Thyroid Stim Hormone (TSH)on 08-27-2024 TSH 3.550 uIU/mL Normal 0.358-3.740 [facility] Comment on above: Order Comment: LIBBY JOVEL ORDERED LIVER, LIPID MIEDEL ORDERED TSH,CMP,CBCD Performed By: #### L 500.4050, L500.4100, L100.0100, L501.9520, L501.4700 #### [facility] [place], [address] OV 06-25-2024 CNOV Office Visit (CAWSTR ) BEN ARROYO ([id number]) 1945 F T Date Time Provider Department 06/25/24 2:20 PM YESSICA GREENE CAWS During your visit today, we recorded the following information about you: Pulse Blood pressure Weight 62/minute 170/84 43.8 kg Yessica Greene MD 06/25/2024 3:16 PM Signed Yessica Greene MD Interventional Cardiology [address] [place] [phone] Chief Complaint No chief complaint on file. HISTORY OF PRESENT ILLNESS: Ms. Arroyo is a 79 year old female seen in my office for assessment management of her cardiac condition prior history of severe coronary artery disease with history of bypass surgery many years ago consisted of a AUGUSTINE to the LAD in 1998 in 2020 she had recurrent symptoms cardiac catheterization showed patent AUGUSTINE to the LAD with severe disease in the RCA and moderate disease in the circumflex she underwent complex angioplasty with 2 drug-eluting stent in the distal mid and proximal right coronary artery with excellent result her circumflex shows moderate disease with negative FFR treated medically Comes in for follow-up doing well from the cardiac point of view denies any chest pain she is short of breath with extremely strenuous activities but she carry on her usual activity with no limitations basis Cardiac Risk Factors age (male over 45, female over 55), hyperlipidemia, hypertension, family history of CAD PAST MEDICAL HISTORY Diagnosis Date Anemia Anxiety state Arthritis Breast cancer (HCC) CAD (coronary artery disease) GERD (gastroesophageal reflux disease) History of hepatitis A HTN (hypertension) Hypothyroidism IBS (irritable bowel syndrome) Mixed hyperlipidemia Osteopenia PAST SURGICAL HISTORY Procedure Laterality Date BUNIONECTOMY, LAPIDUS-TYPE HEART CATHETERIZATION with stent HEART SURGERY HX cabg MASTECTOMY HX Bilateral with implants ORTHOPEDIC SURGERY HX shoulder, knee and toes TOTAL ABDOM HYSTERECTOMY FAMILY HISTORY Family history unknown: Yes Social History Tobacco Use Smoking status: Never Smokeless tobacco: Never ALLERGIES Allergen Reactions Lactose Diarrhea Penicillins Hives Medications: Current Outpatient Medications Medication Sig Dispense Refill Cranberry 400 mg cap Take 800 mg by mouth once daily. simvastatin (ZOCOR) 10 mg tablet Take 1 tablet by mouth every afternoon. lisinopril (ZESTRIL) 10 mg tablet Take 15 mg by mouth once daily. Take 1.5 tablets daily Estradiol (ESTRACE) 0.5 mg tablet Take 0.5 mg by mouth once daily. cholecalciferol, vitamin D3, (CHOLECALCIFEROL, VITD3,, BULK,) 100,000 unit/gram powd Take 50 mcg by mouth. aspirin, enteric coated (ASPIRIN, ENTERIC COATED) 81 mg EC tablet Take 81 mg by mouth. Flaxseed Oil oil 1,000 mg twice daily. levothyroxine (SYNTHROID) 25 mcg tablet Take 50 mcg by mouth once daily. nitroglycerin sublingual (NITROQUICK) 0.4 mg SL tablet Dissolve 0.4 mg under the tongue every 5 minutes as needed. biotin 100 mg/gram powd Take by mouth. (Patient not taking: Reported on 06/25/2024) No current facility-administered medications for this visit. Review of Systems Constitutional: Negative for chills, diaphoresis, fever, malaise/fatigue and weight loss. HENT: Negative for congestion, ear discharge, ear pain, hearing loss, nosebleeds, sinus pain, sore throat and tinnitus. Eyes: Negative for blurred vision, double vision, photophobia, pain, discharge and redness. Respiratory: Positive for shortness of breath. Negative for cough, hemoptysis, sputum production, wheezing and stridor. Cardiovascular: Negative for chest pain, palpitations, orthopnea, claudication, leg swelling and PND. Gastrointestinal: Negative for abdominal pain, blood in stool, constipation, diarrhea, heartburn, melena, nausea and vomiting. Genitourinary: Negative for dysuria, flank pain, frequency, hematuria and urgency. Musculoskeletal: Negative for back pain, falls, joint pain, myalgias and neck pain. Skin: Negative for itching and rash. Neurological: Negative for dizziness, tingling, tremors, sensory change, speech change, focal weakness, seizures, loss of consciousness, weakness and headaches. Endo/Heme/Allergies: Negative for environmental allergies and polydipsia. Does not bruise/bleed easily. Psychiatric/Behaviora l: Negative for depression, hallucinations, memory loss, substance abuse and suicidal ideas. The patient is not nervous/anxious and does not have insomnia. Physical Examination: Vitals:BP 170/84 Pulse 62 Wt 96 lb 9.6 oz (43.8kg) SpO2 99% BP w/Orthostatic Vitals Date and Time Orthostatic BP Orthostatic Pulse BP Pulse BP Position BP Site BP Cuff Size 06/25/24 1415 -- -- 170/84 62 -- -- -- Last 2 Encounter Wt Readings: Date: Wt: 06/25/2024 43.8 kg (96 lb 9.6 oz) 09/21/2022 43.9 (more content not included)... Normal [facility] Cardiology Visit Reporton Cardiology Visit Report [facility] [address] [place] [address] OFFICE VISIT Date of Service: 05/08/24 MR#: [id number] Acct: [id number] Name: BEN ARROYO Olaf Rep #: [id number] : 1945 Provider: LOW reyes Age/Sex: 79/F Location[place] [facility] [place] Status: Signed HPI HPI History of Present Illness Details: Pleasant 79-year-old lady who presents to the office today for an out-patient cardiovascular follow up. She has a history of coronary artery disease status post bypass surgery with a minimally invasive AUGUSTINE to the LAD in 1998. She has also had previous stent placement to the left anterior descending artery. She also has a history of hypertension, anemia, hyperlipidemia, breast carcinoma status post bilateral mastectomy. She had undergone a cardiac catheterization which demonstrated a large dominant calcified long right coronary artery lesion with 80% stenosis in the proximal to mid region and 70% stenosis in the distal vessel. She was referred for and underwent shockwave lithotripsy to the right coronary artery and had a drug-eluting stent placed. FFR of the circumflex artery was 0.89 and was left untouched. She has done well since then. From a cardiac standpoint, the patient is doing well. She denies any palpitations, chest pain, pressure or heaviness. She does acknowledge occasional SOB with carrying heavy objects, climbing hills etc. This is nothing new or worsening. She denies Orthopnea, and PND. She does not have bleeding issues; no blood in urine, stool or nosebleeds. She does acknowledge occasional fatigue-she attributes this to decreased sleep due to her cat. She denies any decrease in energy level, myalgias, or claudication. She does not have edema, or sudden weight gain. She denies dizziness, lightheadedness, syncopal or near syncopal episodes, and headaches. Intake Vital Signs 11/01/23 11:33 05/08/24 08:51 Height 5 ft 5 ft Weight: 95 lb BMI 18.5 BP 131/77 H Blood Pressure Location Lt brachial Position Sitting Respiration 16 Pulse 62 Pulse Source NIBP Intake Visit Reasons: 6 M FU Caseworker Protective Services Required: No Accompanied by: Self Is patient in pain?: No Allergies lactose Adverse Reaction (Verified 05/08/24 09:08) Upset Stomach metoprolol Adverse Reaction (Verified 05/08/24 09:08) dizziness Penicillins Adverse Reaction (Verified 05/08/24 09:08) Hives Medications ???Medication ???Instructions ???Recorded ???Confirmed ???Type aspirin 81 mg chewable tablet 81 mg PO DAILY@0800 heart 05/30/20 05/08/24 History estradiol 0.01% (0.1 mg/gram) 1 ea vaginal WE supplement 05/30/20 05/08/24 History vaginal cream estradiol 0.5 mg tablet 0.5 mg PO QHS 12/22/20 05/08/24 History nitroglycerin 0.4 mg sublingual 0.4 mg sublingual Q5M PRN chest 08/02/22 05/08/24 Rx tablet pain #25 tabs levothyroxine 25 mcg tablet 50 mcg PO DAILY thyroid 10/04/22 05/08/24 History flaxseed oil 1,000 mg capsule 1,000 mg PO DAILY 11/01/23 05/08/24 History simvastatin 10 mg tablet 10 mg PO DAILY #90 tabs 02/03/24 05/08/24 Rx lisinopril 10 mg tablet See Rx Instructions .Route 03/12/24 05/08/24 Rx .COMPLEX #135 tabs cholecalciferol (vitamin D3) 50 50 mcg PO QDAY supplement 05/08/24 05/08/24 History mcg (2,000 unit) capsule cranberry 400 mg capsule 400 mg PO DAILY 05/08/24 05/08/24 History Have you fallen in the past year?: Yes (September 06, dog pulled during walk; no major injury) [facility] Medical History Unstable angina Breast cancer Osteopenia Hiatal hernia Osteoarthritis IBS (irritable bowel syndrome) History of hepatitis A Anemia Atherosclerosis of coronary artery of [place] heart without angina pectoris Essential hypertension GERD (gastroesophageal reflux disease) Anxiety Arthritis Hyperlipidemia Hypothyroidism Surgical History History of coronary artery stent placement (02/03/21) H/O coronary artery bypass surgery (06/16/99) History of left heart catheterization (01/26/21) History of bilateral breast implants History of shoulder surgery History of hammer toe correction History of bunionectomy History of cholecystectomy History of cataract surgery History of bilateral mastectomy History of right knee surgery History of hysterectomy Family History Sister Breast cancer Grandmother Breast cancer Father CVA (cerebral vascular accident) Myocardial infarction Mother Parkinson's disease Brother Seizures CVA (cerebral vascular accident) Social History Smoking Status: Never smoker alcohol intake: never substance use type: does not use what type of (more content not included)... Normal [facility] Bilirubin, Directon 02-27-20 Bilirubin.direct [Mass/Vol] 0.24 mg/dL Normal 0.00-0.30 [facility] Comment on above: Order Comment: LIBBY JOVEL ORDERED LIVER, LIPID MIEDEL ORDERED TSH,CMP,CBCD Performed By: #### L 500.4050, L500.4100, L100.0100, L501.9520, L501.4700 #### [facility] [address] [place], [address] CBC W/Diff, Automatedon 08-2 -2023 Absolute Lymph 1.35 X10 3/uL Normal 0.83-4.51 [facility] Comment on above: Order Comment: LIVER LIPID-MENA OTHER TESTS-MIEDEL PER [employer]-LIVER COULDN'T BE ORDERED-TESTS OVERLAP-ORDERED DBIL Performed By: #### L 501.9520, L500.4050, L501.4700, L500.4100, L100.0100 #### [facility] [address] [place], [address] Absolute Neut 6.6 X10 3/uL Normal 2.0-7.7 [facility] Comment on above: Order Comment: LIVER LIPID-MENA OTHER TESTS-[facility]EDEL [facility]IVER COULDN'T BE ORDERED-TESTS OVERLAP-ORDERED DBIL Performed By: #### L 501.9520, L500.4050, L501.4700, L500.4100, L100.0100 #### [facility] [address] [place], [address] Basophils/100 WBC (Bld) 0.6 % Normal 0-1 [facility] Comment on above: Order Comment: LIVER LIPID-MENA OTHER TESTS-MIEDEL PER [employer]-LIVER COULDN'T BE ORDERED-TESTS OVERLAP-ORDERED DBIL Performed By: #### L 501.9520, L500.4050, L501.4700, L500.4100, L100.0100 #### [facility] [address] [place], [address] Eosinophils/100 WBC (Bld) 1.0 % Normal 0-5 [facility] Comment on above: Order Comment: LIVER LIPID-MENA OTHER TESTS-MIEDEL PER [employer]-LIVER COULDN'T BE ORDERED-TESTS OVERLAP-ORDERED DBIL Performed By: #### L 501.9520, L500.4050, L501.4700, L500.4100, L100.0100 #### [facility] [address] [place], [address] Erythrocyte distribution width (RBC) [Ratio] 13.1 % Normal 11.6-14.6 [facility] Comment on above: Order Comment: LIVER LIPID-MENA OTHER TESTS-MIEDEL [facility]-LIVER COULDN'T BE ORDERED-TESTS OVERLAP-ORDERED DBIL Performed By: #### L 501.9520, L500.4050, L501.4700, L500.4100, L100.0100 #### [facility] [address] [place], [address] Hematocrit (Bld) [Volume fraction] 35.4 % Low 37-47 [facility] Comment on above: Order Comment: LIVER LIPID-MENA OTHER TESTS-MIEDEL [facility] COULD[facility]'T BE ORDERED-TESTS OVERLAP-ORDERED DBIL Performed By: #### L 501.9520, L500.4050, L501.4700, L500.4100, L100.0100 #### [facility] [address] [place], [address] Hemoglobin (Bld) [Mass/Vol] 11.5 g/dL Low 12.0-15.0 [facility] Comment on above: Order Comment: LIVER LIPID-MENA OTHER TESTS-MIEDEL [facility]-TESTS OVERLAP-ORDERED DBIL Performed By: #### L 501.9520, L500.4050, L501.4700, L500.4100, L100.0100 #### [facility] [address] [place], [address] IG% 0.300 Normal 0.0-0.9 [facility] Comment on above: Order Comment: LIVER LIPID-MENA OTHER TESTS-MIEDEL PER [facility]-LIVER COULDN'T BE ORDERED-TESTS OVERLAP-ORDERED DBIL Result Comment: IG% - Immature Granulocytes (promyelocytes, myelocytes and metamyelocytes) > 1% indicates that a LEFT SHIFT is Present. Performed By: #### L 501.9520, L500.4050, L501.4700, L500.4100, L100.0100 #### [facility] [address] [place], [address] Lymphocytes/100 WBC (Bld) 14.5 % Low 19-41 [facility] Comment on above: Order Comment: LIVER LIPID-MENA OTHER TESTS-MIEDEL PER [facility]-LIVER COULDN'T BE ORDERED-TESTS OVERLAP-ORDERED DBIL Performed By: #### L 501.9520, L500.4050, L501.4700, L500.4100, L100.0100 #### [facility] [address] [place], [address] MCH (RBC) [Entitic mass] 28.3 pg Normal 27.0-32.0 [facility] Comment on above: Order Comment: LIVER LIPID-MENA OTHER TESTS-MIEDEL PER [facility]-LIVER COULDN'T BE ORDERED-TESTS OVERLAP-ORDERED DBIL Performed By: #### L 501.9520, L500.4050, L501.4700, L500.4100, L100.0100 #### [facility] [address] [place], [address] MCHC (RBC) [Mass/Vol] 32.5 g/dL Normal 32-36 [facility] Comment on above: Order Comment: LIVER LIPID-MENA OTHER TESTS-MIEDEL PER [facility]-LIVER COULDN'T BE ORDERED-TESTS OVERLAP-ORDERED DBIL Performed By: #### L 501.9520, L500.4050, L501.4700, L500.4100, L100.0100 #### [facility] [address] [place], [address] MCV (RBC) [Entitic vol] 87.0 fL Normal 81-99 [facility] Comment on above: Order Comment: LIVER LIPID-MENA OTHER TESTS-MIEDEL PER [facility]-LIVER COULDN'T BE ORDERED-TESTS OVERLAP-ORDERED DBIL Performed By: #### L 501.9520, L500.4050, L501.4700, L500.4100, L100.0100 #### [facility] [address] [place], [address] Monocytes/100 WBC (Bld) 12.5 % High 0-10 [facility] Comment on above: Order Comment: LIVER LIPID-MENA OTHER TESTS-MIEDEL PER [employer]-LIVER COULDN'T BE ORDERED-TESTS OVERLAP-ORDERED DBIL Performed By: #### L 501.9520, L500.4050, L501.4700, L500.4100, L100.0100 #### [facility] [address] [place], [address] Neutrophils/100 WBC (Bld) 71.1 % High 47-70 [facility] Comment on above: Order Comment: LIVER LIPID-MENA OTHER TESTS-MIEDEL PER [employer]-LIVER COULDN'T BE ORDERED-TESTS OVERLAP-ORDERED DBIL Performed By: #### L 501.9520, L500.4050, L501.4700, L500.4100, L100.0100 #### [facility] [address] [place], [address] Nucleated RBC (Bld) [#/Vol] 0 10*3/uL Normal 0-5 [facility] Comment on above: Order Comment: LIVER LIPID-MENA OTHER TESTS-MIEDEL PER [employer]-LIVER COULDN'T BE ORDERED-TESTS OVERLAP-ORDERED DBIL Performed By: #### L 501.9520, L500.4050, L501.4700, L500.4100, L100.0100 #### [facility] [address] [place], [address] Platelet mean volume (Bld) [Entitic vol] 9.6 fL Normal 6.2-12.0 [facility] Comment on above: Order Comment: LIVER LIPID-MENA OTHER TESTS-MIEDEL PER [facility]-LIVER COULDN'T BE ORDERED-TESTS OVERLAP-ORDERED DBIL Performed By: #### L 501.9520, L500.4050, L501.4700, L500.4100, L100.0100 #### [facility] [address] [place], [address] Platelets (Bld) [#/Vol] 306 10*3/uL Normal 150-450 [facility] Comment on above: Order Comment: LIVER LIPID-MENA OTHER TESTS-MIEDEL PER [facility]-LIVER COULDN'T BE ORDERED-TESTS OVERLAP-ORDERED DBIL Performed By: #### L 501.9520, L500.4050, L501.4700, L500.4100, L100.0100 #### [facility] [address] [place], [address] RBC (Bld) [#/Vol] 4.07 10*6/uL Low 4.2-5.4 [facility] Comment on above: Order Comment: LIVER LIPID-MENA OTHER TESTS-MIEDEL [facility]-LIVER COULDN'T BE ORDERED-TESTS OVERLAP-ORDERED DBIL Performed By: #### L 501.9520, L500.4050, L501.4700, L500.4100, L100.0100 #### [facility] [address] [place], [address] RDW SD 41.2 fl Normal 35.1-43.9 [facility] Comment on above: Order Comment: LIVER LIPID-MENA OTHER TESTS-MIEDEL PER [facility]-LIVER COULDN'T BE ORDERED-TESTS OVERLAP-ORDERED DBIL Performed By: #### L 501.9520, L500.4050, L501.4700, L500.4100, L100.0100 #### [facility] [address] [place], [address] WBC (Bld) [#/Vol] 9.3 10*3/uL Normal 4.4-11.0 [facility] Comment on above: Order Comment: LIVER LIPID-MENA OTHER TESTS-MIEDEL PER [facility]-LIVER COULDN'T BE ORDERED-TESTS OVERLAP-ORDERED DBIL Performed By: #### L 501.9520, L500.4050, L501.4700, L500.4100, L100.0100 #### [facility] [address] [place], [address] Comprehensive Metabolic Prof ilon 02-27-2024 Albumin [Mass/Vol] 3.6 g/dL Normal 3.2-5.0 [facility] Comment on above: Order Comment: LIVER LIPID-MENA OTHER TESTS-MIEDEL PER [facility]-LIVER COULDN'T BE ORDERED-TESTS OVERLAP-ORDERED DBIL Performed By: #### L 501.9520, L500.4050, L501.4700, L500.4100, L100.0100 #### [facility] [address] [place], [address] Albumin/Globulin [Mass ratio] 0.9 {ratio} Normal 0.9-2.4 [facility] Comment on above: Order Comment: LIVER LIPID-MENA OTHER TESTS-MIEDEL PER [facility]-LIVER COULDN'T BE ORDERED-TESTS OVERLAP-ORDERED DBIL Performed By: #### L 501.9520, L500.4050, L501.4700, L500.4100, L100.0100 #### [facility] [address] [place], [address] ALK P 56 U/L Normal 45-117 [facility] Comment on above: Order Comment: LIVER LIPID-MENA OTHER TESTS-MIEDEL PER [facility]-LIVER COULDN'T BE ORDERED-TESTS OVERLAP-ORDERED DBIL Performed By: #### L 501.9520, L500.4050, L501.4700, L500.4100, L100.0100 #### [facility] [address] [place], [address] ALT [Catalytic activity/Vol] 18 U/L Normal 13-56 [facility] Comment on above: Order Comment: LIVER LIPID-MENA OTHER TESTS-MIEDEL PER [facility]-LIVER COULDN'T BE ORDERED-TESTS OVERLAP-ORDERED DBIL Performed By: #### L 501.9520, L500.4050, L501.4700, L500.4100, L100.0100 #### [facility] [address] [place], [address] AST [Catalytic activity/Vol] 23 U/L Normal 15-37 [facility] Comment on above: Order Comment: LIVER LIPID-MENA OTHER TESTS-MIEDEL PER [facility]-LIVER COULDN'T BE ORDERED-TESTS OVERLAP-ORDERED DBIL Performed By: #### L 501.9520, L500.4050, L501.4700, L500.4100, L100.0100 #### [facility] [address] [place], [address] Bilirubin [Mass/Vol] 0.90 mg/dL Normal 0.20-1.00 [facility] Comment on above: Order Comment: LIVER LIPID-MENA OTHER TESTS-MIEDEL PER [facility]-LIVER COULDN'T BE ORDERED-TESTS OVERLAP-ORDERED DBIL Result Comment: For patients on eltrombopag therapy, use of Dimension [place] TBIL is not recommended. Performed By: #### L 501.9520, L500.4050, L501.4700, L500.4100, L100.0100 #### [facility] [address] [place], [address] BUN/CRE 17.9 RATIO Normal 10-20 [facility] Comment on above: Order Comment: LIVER LIPID-MENA OTHER TESTS-MIEDEL PER [facility]-LIVER COULDN'T BE ORDERED-TESTS OVERLAP-ORDERED DBIL Performed By: #### L 501.9520, L500.4050, L501.4700, L500.4100, L100.0100 #### [facility] [address] [place], [address] CA,Total 8.6 mg/dL Normal 8.5-10.1 [facility] Comment on above: Order Comment: LIVER LIPID-MEAN OTHER TESTS-MIEDEL PER [facility]-LIVER COULDN'T BE ORDERED-TESTS OVERLAP-ORDERED DBIL Performed By: #### L 501.9520, L500.4050, L501.4700, L500.4100, L100.0100 #### [facility] [address] [place], [address] Chloride [Moles/Vol] 99 mmol/L Normal 98-107 [facility] Comment on above: Order Comment: LIVER LIPID-MENA OTHER TESTS-MIEDEL PER [employer]-LIVER COULDN'T BE ORDERED-TESTS OVERLAP-ORDERED DBIL Performed By: #### L 501.9520, L500.4050, L501.4700, L500.4100, L100.0100 #### [facility] [address] [place], [address] CO2 [Moles/Vol] 28.0 mmol/L Normal 21.0-32.0 [facility] Comment on above: Order Comment: LIVER LIPID-MENA OTHER TESTS-MIEDEL PER [employer]-LIVER COULDN'T BE ORDERED-TESTS OVERLAP-ORDERED DBIL Performed By: #### L 501.9520, L500.4050, L501.4700, L500.4100, L100.0100 #### [facility] [address] [place], [address] Creatinine [Mass/Vol] 0.67 mg/dL Normal 0.55-1.02 [facility] Comment on above: Order Comment: LIVER LIPID-MENA OTHER TESTS-MIEDEL PER [employer]-LIVER COULDN'T BE ORDERED-TESTS OVERLAP-ORDERED DBIL Result Comment: The validity of the calculated GFR GFRAA in patients over 70 years has not been determined. Clinical correlation is essential. Performed By: #### L 501.9520, L500.4050, L501.4700, L500.4100, L100.0100 #### [facility] [address] [place], [address] EST GFR - AA 110 mL/min Normal >60 [facility] Comment on above: Order Comment: LIVER LIPID-MENA OTHER TESTS-MIEDEL PER [facility]-LIVER COULDN'T BE ORDERED-TESTS OVERLAP-ORDERED DBIL Result Comment: Afri can [place] GFR Calc Performed By: #### L 501.9520, L500.4050, L501.4700, L500.4100, L100.0100 #### [facility] [address] [place], [address] GAP 6 Normal 5-15 [facility] Comment on above: Order Comment: LIVER LIPID-MENA OTHER TESTS-MIEDEL PER [facility]-LIVER COULDN'T BE ORDERED-TESTS OVERLAP-ORDERED DBIL Performed By: #### L 501.9520, L500.4050, L501.4700, L500.4100, L100.0100 #### [facility] [address] [place], [address] GFR/1.73 sq M.predicted among non-blacks MDRD (S/P/Bld) [Vol rate/Area] 91 mL/min/{1.73_m2} Normal >60 [facility] Comment on above: Order Comment: LIVER LIPID-MENA OTHER TESTS-MIEDEL PER [employer]-LIVER COULDN'T BE ORDERED-TESTS OVERLAP-ORDERED DBIL Result Comment: Non- GFR Calc Performed By: #### L 501.9520, L500.4050, L501.4700, L500.4100, L100.0100 #### [facility] [address] [place], [address] Globulin (S) [Mass/Vol] 3.9 g/dL Normal 2.2-4.2 [facility] Comment on above: Order Comment: LIVER LIPID-MENA OTHER TESTS-MIEDEL PER [employer]-LIVER COULDN'T BE ORDERED-TESTS OVERLAP-ORDERED DBIL Performed By: #### L 501.9520, L500.4050, L501.4700, L500.4100, L100.0100 #### [facility] [address] [place], [address] Glucose [Mass/Vol] 91 mg/dL Normal 74-106 [facility] Comment on above: Order Comment: LIVER LIPID-MENA OTHER TESTS-MIEDEL PER [employer]-LIVER COULDN'T BE ORDERED-TESTS OVERLAP-ORDERED DBIL Performed By: #### L 501.9520, L500.4050, L501.4700, L500.4100, L100.0100 #### [facility] [address] [place], [address] Potassium [Moles/Vol] 4.0 mmol/L Normal 3.5-5.1 [facility] Comment on above: Order Comment: LIVER LIPID-MENA OTHER TESTS-MIEDEL PER [employer]-LIVER COULDN'T BE ORDERED-TESTS OVERLAP-ORDERED DBIL Performed By: #### L 501.9520, L500.4050, L501.4700, L500.4100, L100.0100 #### [facility] [address] [place], [address] Sodium [Moles/Vol] 133 mmol/L Low 136-145 [facility] Comment on above: Order Comment: LIVER LIPID-MENA OTHER TESTS-MIEDEL PER [employer]-LIVER COULDN'T BE ORDERED-TESTS OVERLAP-ORDERED DBIL Performed By: #### L 501.9520, L500.4050, L501.4700, L500.4100, L100.0100 #### [facility] [address] [place], [address] T PROT 7.5 g/dL Normal 6.4-8.2 [facility] Comment on above: Order Comment: LIVER LIPID-MENA OTHER TESTS-MIEDEL PER [employer]-LIVER COULDN'T BE ORDERED-TESTS OVERLAP-ORDERED DBIL Performed By: #### L 501.9520, L500.4050, L501.4700, L500.4100, L100.0100 #### [facility] [address] [place], [address] Urea nitrogen [Mass/Vol] 12 mg/dL Normal 7-18 [facility] Comment on above: Order Comment: LIVER LIPID-MENA OTHER TESTS-MIEDEL PER [facility]-LIVER COULDN'T BE ORDERED-TESTS OVERLAP-ORDERED DBIL Performed By: #### L 501.9520, L500.4050, L501.4700, L500.4100, L100.0100 #### [facility] [address] [place], [address] Lipid Profileon 02-27-2024 Cholesterol [Mass/Vol] 156 mg/dL Normal 200 [facility] Comment on above: Order Comment: LIVER LIPID-MENA OTHER TESTS-MIEDEL PER [facility]-LIVER COULDN'T BE ORDERED-TESTS OVERLAP-ORDERED DBIL Result Comment: <200 mg/dL Desirable 200-240 mg/dL Borderline >240 mg/dL High Risk Performed By: #### L 501.9520, L500.4050, L501.4700, L500.4100, L100.0100 #### [facility] [address] [place], [address] Cholesterol in HDL [Mass/Vol] 69 mg/dL Normal [facility] Comment on above: Order Comment: LIVER LIPID-MENA OTHER TESTS-MIEDEL PER [facility]-LIVER COULDN'T BE ORDERED-TESTS OVERLAP-ORDERED DBIL Result Comment: The drugs N-Acetylcysteine and Metamizole may falsely depress this assay. Reference Range HDL <40 mg/dL Low HDL Cholesterol HDL >or= 60 mg/dL High HDL Cholesterol Performed By: #### L 501.9520, L500.4050, L501.4700, L500.4100, L100.0100 #### [facility] [address] [place], [address] Cholesterol in LDL [Mass/Vol] 63 mg/dL Normal 0-130 [facility] Comment on above: Order Comment: LIVER LIPID-MENA OTHER TESTS-MIEDEL PER MEDITECH-LIVER COULDN'T BE ORDERED-TESTS OVERLAP-ORDERED DBIL Performed By: #### L 501.9520, L500.4050, L501.4700, L500.4100, L100.0100 #### [facility] [address] [place], [address] Cholesterol in VLDL [Mass/Vol] 24 mg/dL Normal 5-40 [facility] Comment on above: Order Comment: LIVER LIPID-MENA OTHER TESTS-MIEDEL PER RunMyProcessTECH-LIVER COULDN'T BE ORDERED-TESTS OVERLAP-ORDERED DBIL Performed By: #### L [id number], L500.4050, L501.4700, L500.4100, L100.0100 #### [facility] [address] [place], [address] Triglyceride [Mass/Vol] 120 mg/dL Normal [facility] Comment on above: Order Comment: LIVER LIPID-MENA OTHER TESTS-MIEDEL PER ClinicalBox-LIVER COULDN'T BE ORDERED-TESTS OVERLAP-ORDERED DBIL Result Comment: The drugs N-Acetylcysteine and Metamizole may falsely depress this assay. Serum Triglycerides Reference Interval Normal <150 mg/dL Borderline high 150 - 199 mg/dL High 200 - 499 mg/dL Very High > or = 500 mg/dL Performed By: #### L [id number], L500.4050, L501.4700, L500.4100, L100.0100 #### [facility] [address] [place], [address] Thyroid Stim Hormone (TSH)on 02-27-2024 TSH 2.210 uIU/mL Normal 0.358-3.740 [facility] Comment on above: Order Comment: LIBBY JOVEL ORDERED LIVER, LIPID MIEDEL ORDERED TSH,CMP,CBCD Performed By: #### L 500.4050, L500.4100, L100.0100, L501.9520, L501.4700 #### [facility] [address] [place], [address] Cardiology Visit Reporton Cardiology Visit Report [facility] [address] [place] [address] OFFICE VISIT Date of Service: 11/01/23 MR#: [id number] Acct: [id number] Name: BEN ARROYO Rep #: [id number] : 1945 Provider: LOW reyes Age/Sex: 78/F Location: [facility] Status: Signed HPI HPI History of Present Illness Details: Pleasant 78-year-old lady who presents to the office today for an out-patient cardiovascular follow up. She has a history of coronary artery disease status post bypass surgery with a minimally invasive AUGUSTINE to the LAD in 1998. She has also had previous stent placement to the left anterior descending artery. She also has a history of hypertension, anemia, hyperlipidemia, breast carcinoma status post bilateral mastectomy. She had undergone a cardiac catheterization which demonstrated a large dominant calcified long right coronary artery lesion with 80% stenosis in the proximal to mid region and 70% stenosis in the distal vessel. She was referred for and underwent shockwave lithotripsy to the right coronary artery and had a drug-eluting stent placed. FFR of the circumflex artery was 0.89 and was left untouched. She has done well since then. From a cardiac standpoint, the patient is doing well. She denies any palpitations, chest pain, pressure or heaviness. She denies SOB, Orthopnea, and PND. She does not have bleeding issues; no blood in urine, stool or nosebleeds. She does acknowledge a decrease in energy level. She states she does not sleep well at night. She denies myalgias, or claudication. She does not have edema, or sudden weight gain. She denies dizziness, lightheadedness, syncopal or near syncopal episodes, and headaches. Intake Vital Signs 10/04/22 09:52 04/07/23 09:50 09/07/23 08:10 11/01/23 11:29 11/01/23 11:33 Height 5 ft 4 ft 11 in 5 ft 5 ft 5 ft Weight: 96 lb BMI 18.7 BP 121/69 H Blood Pressure Location Lt brachial Position Sitting Respiration 18 Pulse 55 L Pulse Source Monitor Pulse Oximetry (%) 100 Intake Visit Reasons: 1 Y FU (MOVED FROM [facility]) Caseworker Protective Services Required: No Is patient in pain?: No Allergies lactose Adverse Reaction (Verified 11/01/23 11:33) Upset Stomach metoprolol Adverse Reaction (Verified 11/01/23 11:33) dizziness Penicillins Adverse Reaction (Verified 11/01/23 11:33) Hives Medications aspirin 81 mg chewable tablet 81 mg PO DAILY@0800 heart 05/30/20 [History Confirmed 11/01/23] estradiol 0.01% (0.1 mg/gram) vaginal cream 1 ea vaginal WE supplement 05/30/20 [History Confirmed 11/01/23] cranberry 400 mg capsule 800 mg PO DAILY 12/22/20 [History Confirmed 11/01/23] estradiol 0.5 mg tablet 0.5 mg PO QHS 12/22/20 [History Confirmed 11/01/23] nitroglycerin 0.4 mg sublingual tablet 0.4 mg sublingual Q5M PRN chest pain #25 tabs 08/02/22 [Rx Confirmed 11/01/23] levothyroxine 25 mcg tablet 50 mcg PO DAILY thyroid 10/04/22 [History Confirmed 11/01/23] simvastatin 10 mg tablet 10 mg PO DAILY #90 tabs 02/23/23 [Rx Confirmed 11/01/23] lisinopril 10 mg tablet See Rx Instructions .Route .COMPLEX #135 tabs 03/17/23 [Rx Confirmed 11/01/23] cholecalciferol (vitamin D3) 50 mcg (2,000 unit) capsule 50 mcg PO BID supplement 04/07/23 [History Confirmed 11/01/23] flaxseed oil 1,000 mg capsule 1,000 mg PO DAILY 11/01/23 [History Confirmed 11/01/23] [facility] Medical History Anemia Anxiety Arthritis Atherosclerosis of coronary artery of [place] heart without angina pectoris Breast cancer Essential hypertension GERD (gastroesophageal reflux disease) Hiatal hernia History of hepatitis A Hyperlipidemia Hypothyroidism IBS (irritable bowel syndrome) Osteoarthritis Osteopenia Unstable angina Surgical History H/O coronary artery bypass surgery (06/16/99) History of bilateral breast implants History of bilateral mastectomy History of bunionectomy History of cataract surgery History of cholecystectomy History of coronary artery stent placement (02/03/21) History of hammer toe correction History of hysterectomy History of left heart catheterization (01/26/21) History of right knee surgery History of shoulder surgery Family History (Reviewed 11/01/23 @ 11:33 by Aicha Mena TAPE FOLDING MACHINE OPERATOR, TAPE FOLDING MACHINE OPERATOR-C) Sister Breast cancer Grandmother Breast cancer Father CVA (cerebral vascular accident) Myocardial infarction Mother Parkinson's disease Brother Seizures CVA (cerebral vascular accident) Social History (Reviewed 11/01/23 @ 11:33 by Aicha Mena TAPE FOLDING MACHINE OPERATOR, TAPE FOLDING MACHINE OPERATOR-C) Smoking Status: Never smoker alcohol intake: never substance use type: does not use what type of physical activity do you participate in: walking frequency: 5-6 times per week ROS Const Const: Positive for f (more content not included)... Normal [facility] Absolute lymphocyte countOrd ered By: Aicha Mena on 08-22-2023 Lymphocytes Auto (Unsp spec) [#/Vol] 1.44 10*3/uL 0.83-4.51 [facility] Automated lymphocyte count a s percentage of total leukocytesOrdered By: Aicha Mena on 08-22-2023 Lymphocytes/100 WBC Auto (Unsp spec) 14.9 % 19-41 [facility] Basophil percentageOrdered B y: Aicha Mena on 08-22-2023 Basophils/100 WBC (Bld) 0.5 % 0-1 [facility] Eosinophils/100 WBC (Bld) 0.5 % 0-5 [facility] Hemoglobin (Bld) [Mass/Vol] 12.5 g/dL 12.0-15.0 [facility] Monocytes/100 WBC (Bld) 10.7 % 0-10 [facility] Neutrophils (Bld) [#/Vol] 7.1 10*3/uL 2.0-7.7 [facility] Neutrophils/100 WBC (Bld) 73.1 % 47-70 [facility] WBC (Bld) [#/Vol] 9.7 10*3/uL 4.4-11.0 [facility] Bilirubin [Mass/Vol] 0.80 mg/dL 0.20-1.00 [facility] Comment on above: For patients on eltr ombopag therapy, use of Dimension [place] TBIL is not recommended. Chloride [Moles/Vol] 101 mmol/L 98-107 [facility] Cholesterol [Mass/Vol] 173 mg/dL <200 [facility] Comment on above: <200 mg/dL Desirable 200-240 mg/dL Borderline >240 mg/dL High Risk Glucose [Mass/Vol] 93 mg/dL 74-106 [facility] Potassium [Moles/Vol] 4.2 mmol/L 3.5-5.1 [facility] Protein [Mass/Vol] 7.9 g/dL 6.4-8.2 [facility] Sodium [Moles/Vol] 133 mmol/L 136-145 [facility] Triglyceride [Mass/Vol] 144 mg/dL <199 [facility] Comment on above: The drugs N-Acetylcy steine and Metamizole may falsely depress this assay.Serum Triglycerides Reference Interval Normal <150 mg/dL Borderline high 150 - 199 mg/dL High 200 - 499 mg/dL Very High > or = 500 mg/dL Determination of erythrocyte mean corpuscular volume (MCV)Ordered By: Aicha Mena on 08-22-2023 MCV (RBC) [Entitic vol] 88.2 fL 81-99 [facility] Direct bilirubinOrdered By: Aicha Mena on 08-22-2023 Bilirubin.direct [Mass/Vol] 0.19 mg/dL 0.00-0.30 [facility] Erythrocyte distribution wid th ratioOrdered By: Aicha Mena on 08-22-2023 Erythrocyte distribution width (RBC) [Ratio] 13.4 % 11.6-14.6 [facility] Erythrocyte distribution wid th standard deviationOrdered By: Aicha Mena on 08-22-2023 Erythrocyte distribution width (RBC) [Entitic vol] 43.8 fL 35.1-43.9 [facility] Hematocrit Auto (Bld) [Volum e fraction]Ordered By: Aicha Mena on 08-22-2023 Hematocrit (Bld) [Volume fraction] 38.1 % 37-47 [facility] Immature granulocytes/100 WB C Auto (Bld)Ordered By: Aicha Mena on 08-22-2023 Immature granulocytes/100 WBC (Bld) 0.300 % 0.0-0.9 [facility] Comment on above: IG% - Immature Granu locytes (promyelocytes, myelocytes and metamyelocytes) > 1% indicates that a LEFT SHIFT is Present. Laboratory - Chemistry and C hemistry - challengeOrdered By: Aicha Mena on 08-22-2023 Albumin/Globulin [Mass ratio] 0.9 {ratio} 0.9-2.4 [facility] ALP [Catalytic activity/Vol] 62 U/L 45-117 [facility] ALT [Catalytic activity/Vol] 16 U/L 13-56 [facility] Cholesterol in HDL [Mass/Vol] 77 mg/dL >40 [facility] Comment on above: The drugs N-Acetylcy steine and Metamizole may falsely depress this assay. Reference Range HDL <40 mg/dL Low HDL Cholesterol HDL >or= 60 mg/dL High HDL Cholesterol Cholesterol in LDL [Mass/Vol] 67 mg/dL 0-130 [facility] CO2 [Moles/Vol] 27.0 mmol/L 21.0-32.0 [facility] Globulin (S) [Mass/Vol] 4.1 g/dL 2.2-4.2 [facility] Urea nitrogen/Creatinine [Mass ratio] 17.4 mg/mg 10-20 [facility] Laboratory - Hematology and Cell countsOrdered By: Aicha Mena on 08-22-2023 MCH (RBC) [Entitic mass] 28.9 pg 27.0-32.0 [facility] MCHC (RBC) [Mass/Vol] 32.8 g/dL 32-36 [facility] Nucleated RBC/100 WBC (Bld) [Ratio] 0 % 0-5 [facility] Platelet mean volume (Bld) [Entitic vol] 9.7 fL 6.2-12.0 [facility] Platelets (Bld) [#/Vol] 323 10*3/uL 150-450 [facility] No Panel InformationOrdered By: Aicha Mena on 08-22-2023 Vitamin D 25-Hydroxy 58.4 ng/mL [facility] Comment on above: Vitamin D 25(OH) Sta tus Range Deficiency <20 ng/mL (50nmol/L) Insufficiency 20 - 30 ng/mL (50 - 75 nmol/L) Sufficiency 30 - 100 ng/mL (75 - 250 nmol/L) Toxicity >100 ng/mL (>250 nmol/L) Estimated GFR (MDRD) Amer 97 mL/min >60 [facility] Comment on above: GFR Calc Estimated GFR (MDRD) Non-Af Amer 80 mL/min >60 [facility] Comment on above: Non- GFR Calc VLDL Cholesterol 29 mg/dL 5-40 [facility] RBC Auto (Bld) [#/Vol]Ordere d By: Aicha Mena on 08-22-2023 RBC (Bld) [#/Vol] 4.32 10*6/uL 4.2-5.4 [facility] Serum or plasma calcium lorie urement (mass/volume)Ordered By: Aicha Mena on 08-22-2023 Calcium [Mass/Vol] 9.4 mg/dL 8.5-10.1 [facility] Serum or plasma creatinine m easurement (mass/volume)Ordered By: Aicha Mena on 08-22-2023 Creatinine [Mass/Vol] 0.75 mg/dL 0.55-1.02 [facility] Comment on above: The validity of the calculated GFR & GFRAA in patients over 70 years has not been determined. Clinical correlation is essential. Serum or plasma thyroid stim ulating hormone (TSH) measurement (units/volume)Ordered By: Aicha Mena on 08-22-2023 TSH Qn 2.41 uIU/mL 0.358-3.74 [facility] Serum or plasma urea nitroge n measurement (mass/volume)Ordered By: Aicha Mena on 08-22-2023 Urea nitrogen [Mass/Vol] 13 mg/dL 7-18 [facility] Thin prep Papanicolaou smear with manual screeningOrdered By: Aicha Mena on 08-22-2023 Thin prep Papanicolaou smear with manual screening 3.8 g/dL 3.2-5.0 [facility] Thin prep Papanicolaou smear with manual screening 21 U/L 15-37 [facility] Thin prep Papanicolaou smear with manual screening 5 5-15 [facility] Basophil percentageOrdered B y: Adela Harley on 02-21-2023 Chloride [Moles/Vol] 102 mmol/L 98-107 [facility] Glucose [Mass/Vol] 89 mg/dL 74-106 [facility] Potassium [Moles/Vol] 4.0 mmol/L 3.5-5.1 [facility] Sodium [Moles/Vol] 133 mmol/L 136-145 [facility] Laboratory - Chemistry and C hemistry - challengeOrdered By: Adela Harley on 02-21-2023 CO2 [Moles/Vol] 29.0 mmol/L 21.0-32.0 [facility] Urea nitrogen/Creatinine [Mass ratio] 18.0 mg/mg 10-20 [facility] No Panel InformationOrdered By: Adela Harley on 02-21-2023 Estimated GFR (MDRD) Amer 93 mL/min >60 [facility] Comment on above: GFR Calc Estimated GFR (MDRD) Non-Af Amer 77 mL/min >60 [facility] Comment on above: Non- GFR Calc Thyroid Stimulating Hormone (TSH) 2.79 uIU/mL 0.358-3.74 [facility] Vitamin D 25-Hydroxy 60.2 ng/mL [facility] Comment on above: Vitamin D 25(OH) Sta tus Range Deficiency <20 ng/mL (50nmol/L) Insufficiency 20 - 30 ng/mL (50 - 75 nmol/L) Sufficiency 30 - 100 ng/mL (75 - 250 nmol/L) Toxicity >100 ng/mL (>250 nmol/L) Serum or plasma calcium lorie urement (mass/volume)Ordered By: Adela Harley on 02-21-2023 Calcium [Mass/Vol] 9.0 mg/dL 8.5-10.1 [facility] Serum or plasma creatinine m easurement (mass/volume)Ordered By: Adela Harley on 02-21-2023 Creatinine [Mass/Vol] 0.78 mg/dL 0.55-1.02 [facility] Comment on above: The validity of the calculated GFR & GFRAA in patients over 70 years has not been determined. Clinical correlation is essential. Serum or plasma urea nitroge n measurement (mass/volume)Ordered By: Adela Harley on 02-21-2023 Urea nitrogen [Mass/Vol] 14 mg/dL 7-18 [facility] Thin prep Papanicolaou smear with manual screeningOrdered By: Adela Harley on 02-21-2023 Thin prep Papanicolaou smear with manual screening 2 5-15 [facility] Basophil percentageOrdered B y: Adela Harley on 01-25-2023 Chloride [Moles/Vol] 101 mmol/L 98-107 [facility] Glucose [Mass/Vol] 128 mg/dL 74-106 [facility] Comment on above: Fasting Glucose resu lt greater than or equal to 126 mg/dL suggests DIABETES MELLITUS per A.D.A. criteria. Potassium [Moles/Vol] 4.0 mmol/L 3.5-5.1 [facility] Sodium [Moles/Vol] 133 mmol/L 136-145 [facility] Laboratory - Chemistry and C hemistry - challengeOrdered By: Adela Harley on 01-25-2023 CO2 [Moles/Vol] 25.0 mmol/L 21.0-32.0 [facility] Urea nitrogen/Creatinine [Mass ratio] 17.0 mg/mg 10-20 [facility] No Panel InformationOrdered By: Adela Harley on 01-25-2023 Estimated GFR (MDRD) Amer 95 mL/min >60 [facility] Comment on above: GFR Calc Estimated GFR (MDRD) Non-Af Amer 78 mL/min >60 [facility] Comment on above: Non- GFR Calc Serum or plasma calcium lorie urement (mass/volume)Ordered By: Adela Harley on 01-25-2023 Calcium [Mass/Vol] 8.7 mg/dL 8.5-10.1 [facility] Serum or plasma creatinine m easurement (mass/volume)Ordered By: Adela Harley on 01-25-2023 Creatinine [Mass/Vol] 0.76 mg/dL 0.55-1.02 [facility] Comment on above: The validity of the calculated GFR & GFRAA in patients over 70 years has not been determined. Clinical correlation is essential. Serum or plasma urea nitroge n measurement (mass/volume)Ordered By: Adela Harley on 01-25-2023 Urea nitrogen [Mass/Vol] 13 mg/dL 7-18 [facility] Thin prep Papanicolaou smear with manual screeningOrdered By: Adela Harley on 01-25-2023 Thin prep Papanicolaou smear with manual screening 7 5-15 [facility] Absolute lymphocyte countOrd ered By: Katelin Chin on 01-23-2023 Lymphocytes Auto (Unsp spec) [#/Vol] 1.67 10*3/uL 0.83-4.51 [facility] Basophil percentageOrdered B y: Katelin Chin on 01-23-2023 Basophils/100 WBC (Bld) 0.4 % 0-1 [facility] Chloride [Moles/Vol] 91 mmol/L 98-107 [facility] Eosinophils/100 WBC (Bld) 1.0 % 0-5 [facility] Glucose [Mass/Vol] 107 mg/dL 74-106 [facility] Comment on above: Fasting Glucose resu lt from 100 to 125 mg/dL suggests IMPAIRED HOMEOSTASIS per A.D.A. criteria. Neutrophils (Bld) [#/Vol] 6.0 10*3/uL 2.0-7.7 [facility] Neutrophils/100 WBC (Bld) 65.6 % 47-70 [facility] Potassium [Moles/Vol] 3.9 mmol/L 3.5-5.1 [facility] Sodium [Moles/Vol] 125 mmol/L 136-145 [facility] WBC (Bld) [#/Vol] 9.2 10*3/uL 4.4-11.0 [facility] Blood erythrocytes count (nu mber/volume)Ordered By: Katelin Chin on 01-23-2023 RBC (Bld) [#/Vol] 4.17 10*6/uL 4.2-5.4 [facility] Blood hemoglobin measurement (mass/volume)Ordered By: Katelin Chin on 01-23-2023 Hemoglobin (Bld) [Mass/Vol] 12.2 g/dL 12.0-15.0 [facility] Blood lymphocytes/100 leukoc ytesOrdered By: Katelin Chin on 01-23-2023 Lymphocytes/100 WBC (Bld) 18.1 % 19-41 [facility] Blood monocytes/100 leukocyt esOrdered By: Katelin Chin on 01-23-2023 Monocytes/100 WBC (Bld) 14.5 % 0-10 [facility] Blood platelet mean volumeOr dered By: Katelin Chin on 01-23-2023 Platelet mean volume (Bld) [Entitic vol] 9.2 fL 6.2-12.0 [facility] Determination of erythrocyte mean corpuscular volume (MCV)Ordered By: Katelin Chin on 01-23-2023 MCV (RBC) [Entitic vol] 85.6 fL 81-99 [facility] Hematocrit Auto (Bld) [Volum e fraction]Ordered By: Katelin Chin on 01-23-2023 Hematocrit (Bld) [Volume fraction] 35.7 % 37-47 [facility] Laboratory - Chemistry and C hemistry - challengeOrdered By: Katelin Chin on 01-23-2023 CO2 [Moles/Vol] 26.0 mmol/L 21.0-32.0 [facility] Urea nitrogen/Creatinine [Mass ratio] 18.8 mg/mg 10-20 [facility] - Hematology and Cell countsOrdered By: Katelin Chin on 01-23-2023 Erythrocyte distribution width (RBC) [Entitic vol] 39.5 fL 35.1-43.9 [facility] Erythrocyte distribution width (RBC) [Ratio] 12.6 % 11.6-14.6 [facility] Immature granulocytes/100 WBC (Bld) 0.400 % 0.0-0.9 [facility] Comment on above: IG% - Immature Granu locytes (promyelocytes, myelocytes and metamyelocytes) > 1% indicates that a LEFT SHIFT is Present. MCH (RBC) [Entitic mass] 29.3 pg 27.0-32.0 [facility] Nucleated RBC/100 WBC (Bld) [Ratio] 0 % 0-5 [facility] MCHC Auto (RBC) [Mass/Vol]Or dered By: Katelin Chin on 01-23-2023 MCHC (RBC) [Mass/Vol] 34.2 g/dL 32-36 [facility] No Panel InformationOrdered By: Katelin Chin on 01-23-2023 Estimated Creatinine Clearance Calc 33.69 ml/min [facility] Estimated GFR (MDRD) Amer 106 mL/min >60 [facility] Comment on above: GFR Calc Estimated GFR (MDRD) Non-Af Amer 88 mL/min >60 [facility] Comment on above: Non- GFR Calc Platelets bldOrdered By: [place] aubrey Giuseppe on 01-23-2023 Platelets (Bld) [#/Vol] 285 10*3/uL 150-450 [facility] Serum or plasma calcium lorie urement (mass/volume)Ordered By: Katelin Chin on 01-23-2023 Calcium [Mass/Vol] 9.0 mg/dL 8.5-10.1 [facility] Serum or plasma creatinine m easurement (mass/volume)Ordered By: Katelin Chin on 01-23-2023 Creatinine [Mass/Vol] 0.69 mg/dL 0.55-1.02 [facility] Comment on above: The validity of the calculated GFR & GFRAA in patients over 70 years has not been determined. Clinical correlation is essential. Serum or plasma urea nitroge n measurement (mass/volume)Ordered By: Katelin Chin on 01-23-2023 Urea nitrogen [Mass/Vol] 13 mg/dL 7-18 [facility] Thin prep Papanicolaou smear with manual screeningOrdered By: Katelin Chin on 01-23-2023 Thin prep Papanicolaou smear with manual screening 8 5-15 [facility] Basophil percentageOrdered B y: Aicha Mena on 11-17-2022 Bilirubin [Mass/Vol] 0.70 mg/dL 0.20-1.00 [facility] Comment on above: For patients on eltr ombopag therapy, use of Dimension [place] TBIL is not recommended. Cholesterol [Mass/Vol] 174 mg/dL <200 [facility] Comment on above: <200 mg/dL Desirable 200-240 mg/dL Borderline >240 mg/dL High Risk Protein [Mass/Vol] 8.1 g/dL 6.4-8.2 [facility] Triglyceride [Mass/Vol] 120 mg/dL <199 [facility] Comment on above: The drugs N-Acetylcy steine and Metamizole may falsely depress this assay.Serum Triglycerides Reference Interval Normal <150 mg/dL Borderline high 150 - 199 mg/dL High 200 - 499 mg/dL Very High > or = 500 mg/dL Direct bilirubinOrdered By: Aicha Mena on 11-17-2022 Bilirubin.direct [Mass/Vol] 0.16 mg/dL 0.00-0.30 [facility] Laboratory - Chemistry and C hemistry - challengeOrdered By: Aciha Mena on 11-17-2022 ALP [Catalytic activity/Vol] 62 U/L 45-117 [facility] ALT [Catalytic activity/Vol] 22 U/L 13-56 [facility] Globulin (S) [Mass/Vol] 4.2 g/dL 2.2-4.2 [facility] Serum or plasma albumin lorie urement (mass/volume)Ordered By: Aicha Mena on 11-17-2022 Albumin [Mass/Vol] 3.9 g/dL 3.2-5.0 [facility] Serum or plasma cholesterol in HDL measurement (mass/volume)Ordered By: Aicha Mena on 11-17-2022 Cholesterol in HDL [Mass/Vol] 77 mg/dL >40 [facility] Comment on above: The drugs N-Acetylcy steine and Metamizole may falsely depress this assay. Reference Range HDL <40 mg/dL Low HDL Cholesterol HDL >or= 60 mg/dL High HDL Cholesterol Serum or plasma cholesterol in VLDL measurement (mass/volume)Ordered By: Aicha Mena on 11-17-2022 Cholesterol in VLDL [Mass/Vol] 24 mg/dL 5-40 [facility] Serum or plasma low density lipoprotein (LDL) cholesterol measurement (mass/volume)Ordered By: Aicha Mena on 11-17-2022 Cholesterol in LDL [Mass/Vol] 73 mg/dL 0-130 [facility] Thin prep Papanicolaou smear with manual screeningOrdered By: Aicha Mena on 11-17-2022 Thin prep Papanicolaou smear with manual screening 27 U/L 15-37 [facility] Absolute lymphocyte countOrd ered By: Dr. Harley on 08-02-2022 Lymphocytes Auto (Unsp spec) [#/Vol] 1.22 10*3/uL 0.83-4.51 [facility] Basophil percentageOrdered B y: Dr. Harley on 08-02-2022 Basophils/100 WBC (Bld) 0.6 % 0-1 [facility] Eosinophils/100 WBC (Bld) 0.6 % 0-5 [facility] Neutrophils (Bld) [#/Vol] 5.8 10*3/uL 2.0-7.7 [facility] Neutrophils/100 WBC (Bld) 69.5 % 47-70 [facility] WBC (Bld) [#/Vol] 8.3 10*3/uL 4.4-11.0 [facility] Blood erythrocytes count (nu mber/volume)Ordered By: Dr. Harley on 08-02-2022 RBC (Bld) [#/Vol] 4.43 10*6/uL 4.2-5.4 [facility] Blood hemoglobin measurement (mass/volume)Ordered By: Dr. Harley on 08-02-2022 Hemoglobin (Bld) [Mass/Vol] 12.5 g/dL 12.0-15.0 [facility] Blood lymphocytes/100 leukoc ytesOrdered By: Dr. Harley on 08-02-2022 Lymphocytes/100 WBC (Bld) 14.7 % 19-41 [facility] Blood monocytes/100 leukocyt esOrdered By: Dr. Harley on 08-02-2022 Monocytes/100 WBC (Bld) 14.1 % 0-10 [facility] Blood platelet mean volumeOr dered By: Dr. Harley on 08-02-2022 Platelet mean volume (Bld) [Entitic vol] 9.7 fL 6.2-12.0 [facility] Determination of erythrocyte mean corpuscular volume (MCV)Ordered By: Dr. Harley on 08-02-2022 MCV (RBC) [Entitic vol] 87.4 fL 81-99 [facility] Hematocrit Auto (Bld) [Volum e fraction]Ordered By: Dr. Harley on 08-02-2022 Hematocrit (Bld) [Volume fraction] 38.7 % 37-47 [facility] Laboratory - Hematology and Cell countsOrdered By: Dr. Harley on 08-02-2022 Erythrocyte distribution width (RBC) [Entitic vol] 40.7 fL 35.1-43.9 [facility] Erythrocyte distribution width (RBC) [Ratio] 12.7 % 11.6-14.6 [facility] Immature granulocytes/100 WBC (Bld) 0.500 % 0.0-0.9 [facility] Comment on above: IG% - Immature Granu locytes (promyelocytes, myelocytes and metamyelocytes) > 1% indicates that a LEFT SHIFT is Present. MCH (RBC) [Entitic mass] 28.2 pg 27.0-32.0 [facility] Nucleated RBC/100 WBC (Bld) [Ratio] 0 % 0-5 [facility] MCHC Auto (RBC) [Mass/Vol]Or dered By: Dr. Harley on 08-02-2022 MCHC (RBC) [Mass/Vol] 32.3 g/dL 32-36 [facility] No Panel InformationOrdered By: Dr. Harley on 08-02-2022 Thyroid Stimulating Hormone (TSH) 2.55 uIU/mL 0.358-3.74 [facility] Platelets bldOrdered By: Dr. Harley on 08-02-2022 Platelets (Bld) [#/Vol] 291 10*3/uL 150-450 [facility] Basophil percentageOrdered B y: Aicha Mena on 05-19-2022 Bilirubin [Mass/Vol] 1.00 mg/dL 0.20-1.00 [facility] Comment on above: For patients on eltr ombopag therapy, use of Dimension [place] TBIL is not recommended. Cholesterol [Mass/Vol] 180 mg/dL <200 [facility] Comment on above: <200 mg/dL Desirable 200-240 mg/dL Borderline >240 mg/dL High Risk Protein [Mass/Vol] 8.1 g/dL 6.4-8.2 [facility] Triglyceride [Mass/Vol] 91 mg/dL <199 [facility] Comment on above: The drugs N-Acetylcy steine and Metamizole may falsely depress this assay.Serum Triglycerides Reference Interval Normal <150 mg/dL Borderline high 150 - 199 mg/dL High 200 - 499 mg/dL Very High > or = 500 mg/dL Direct bilirubinOrdered By: Aicha Mena on 05-19-2022 Bilirubin.direct [Mass/Vol] 0.26 mg/dL 0.00-0.30 [facility] Laboratory - Chemistry and C hemistry - challengeOrdered By: Aicha Mena on 05-19-2022 ALP [Catalytic activity/Vol] 64 U/L 45-117 [facility] ALT [Catalytic activity/Vol] 19 U/L 13-56 [facility] Free T4 [Mass/Vol] 1.27 ng/dL 0.76-1.46 [facility] Globulin (S) [Mass/Vol] 4.1 g/dL 2.2-4.2 [facility] No Panel InformationOrdered By: Aicha Mena on 05-19-2022 Thyroid Stimulating Hormone (TSH) 3.15 uIU/mL 0.358-3.74 [facility] Serum or plasma albumin lorie urement (mass/volume)Ordered By: Aicha Mena on 05-19-2022 Albumin [Mass/Vol] 4.0 g/dL 3.2-5.0 [facility] Serum or plasma cholesterol in HDL measurement (mass/volume)Ordered By: Aicha Mena on 05-19-2022 Cholesterol in HDL [Mass/Vol] 92 mg/dL >40 [facility] Comment on above: The drugs N-Acetylcy steine and Metamizole may falsely depress this assay. Reference Range HDL <40 mg/dL Low HDL Cholesterol HDL >or= 60 mg/dL High HDL Cholesterol Serum or plasma cholesterol in VLDL measurement (mass/volume)Ordered By: Aicha Mena on 05-19-2022 Cholesterol in VLDL [Mass/Vol] 18 mg/dL 5-40 [facility] Serum or plasma low density lipoprotein (LDL) cholesterol measurement (mass/volume)Ordered By: Aicha Mena on 05-19-2022 Cholesterol in LDL [Mass/Vol] 70 mg/dL 0-130 [facility] Thin prep Papanicolaou smear with manual screeningOrdered By: Aicha Mena on 05-19-2022 Thin prep Papanicolaou smear with manual screening 26 U/L 15-37 [facility] Absolute lymphocyte counton 02-18-2022 Lymphocytes Auto (Unsp spec) [#/Vol] 1.08 10*3/uL 0.83-4.51 [facility] Work Phone: Basophil percentageon 2021 Basophils/100 WBC (Bld) 0.5 % 0-1 [facility] Work Phone: Bilirubin [Mass/Vol] 0.90 mg/dL 0.20-1.00 [facility] Work Phone: Comment on above: For patients on eltr ombopag therapy, use of Dimension [place] TBIL is not recommended. Chloride [Moles/Vol] 95 mmol/L 98-107 [facility] Work Phone: Cholesterol [Mass/Vol] 157 mg/dL <200 [facility] Work Phone: Comment on above: <200 mg/dL Desirable 200-240 mg/dL Borderline >240 mg/dL High Risk Eosinophils/100 WBC (Bld) 0.4 % 0-5 [facility] Work Phone: Glucose [Mass/Vol] 92 mg/dL 74-106 [facility] Work Phone: [phone] Neutrophils (Bld) [#/Vol] 6.4 10*3/uL 2.0-7.7 [facility] Work Phone: Neutrophils/100 WBC (Bld) 74.6 % 47-70 [facility] Work Phone: Potassium [Moles/Vol] 4.3 mmol/L 3.5-5.1 [facility] Work Phone: [phone] Protein [Mass/Vol] 7.5 g/dL 6.4-8.2 [facility] Work Phone: Sodium [Moles/Vol] 129 mmol/L 136-145 [facility] Work Phone: [phone] Triglyceride [Mass/Vol] 76 mg/dL <199 [facility] Work Phone: Comment on above: The drugs N-Acetylcy steine and Metamizole may falsely depress this assay.Serum Triglycerides Reference Interval Normal <150 mg/dL Borderline high 150 - 199 mg/dL High 200 - 499 mg/dL Very High > or = 500 mg/dL WBC (Bld) [#/Vol] 8.5 10*3/uL 4.4-11.0 [facility] Work Phone: [phone] Blood erythrocytes count (nu mber/volume)on 02-18-2022 RBC (Bld) [#/Vol] 4.14 10*6/uL 4.2-5.4 [facility] Work Phone: Blood hemoglobin measurement (mass/volume)on 02-18-2022 Hemoglobin (Bld) [Mass/Vol] 12.3 g/dL 12.0-15.0 [facility] Work Phone: Blood lymphocytes/100 leukoc yteson 02-18-2022 Lymphocytes/100 WBC (Bld) 12.7 % 19-41 [facility] Work Phone: Blood monocytes/100 leukocyt eson 02-18-2022 Monocytes/100 WBC (Bld) 11.4 % 0-10 [facility] Work Phone: Blood platelet mean volumeon 02-18-2022 Platelet mean volume (Bld) [Entitic vol] 8.8 fL 6.2-12.0 [facility] Work Phone: Determination of erythrocyte mean corpuscular volume (MCV)on 02-18-2022 MCV (RBC) [Entitic vol] 87.2 fL 81-99 [facility] Work Phone: Hematocrit Auto (Bld) [Volum e fraction]on 02-18-2022 Hematocrit (Bld) [Volume fraction] 36.1 % 37-47 [facility] Work Phone: Laboratory - Chemistry and C hemistry - challengeon 02-18-2022 ALP [Catalytic activity/Vol] 49 U/L 45-117 [facility] Work Phone: ALT [Catalytic activity/Vol] 25 U/L 13-56 [facility] Work Phone: CO2 [Moles/Vol] 29.0 mmol/L 21.0-32.0 [facility] Work Phone: Globulin (S) [Mass/Vol] 3.8 g/dL 2.2-4.2 [facility] Work Phone: Urea nitrogen/Creatinine [Mass ratio] 16.6 mg/mg 10-20 [facility] Work Phone: Laboratory - Hematology and Cell countson 02-18-2022 Erythrocyte distribution width (RBC) [Entitic vol] 43.3 fL 35.1-43.9 [facility] Work Phone: Erythrocyte distribution width (RBC) [Ratio] 13.6 % 11.6-14.6 [facility] Work Phone: Immature granulocytes/100 WBC (Bld) 0.400 % 0.0-0.9 [facility] Work Phone: Comment on above: IG% - Immature Granu locytes (promyelocytes, myelocytes and metamyelocytes) > 1% indicates that a LEFT SHIFT is Present. MCH (RBC) [Entitic mass] 29.7 pg 27.0-32.0 [facility] Work Phone: Nucleated RBC/100 WBC (Bld) [Ratio] 0 % 0-5 [facility] Work Phone: MCHC Auto (RBC) [Mass/Vol]on 02-18-2022 MCHC (RBC) [Mass/Vol] 34.1 g/dL 32-36 [facility] Work Phone: No Panel Informationon 02-18 Estimated GFR (MDRD) Amer 101 mL/min >60 [facility] Work Phone: Comment on above: GFR Calc Estimated GFR (MDRD) Non-Af Amer 83 mL/min >60 [facility] Work Phone: Comment on above: Non- GFR Calc Thyroid Stimulating Hormone (TSH) 5.48 uIU/mL 0.358-3.74 [facility] Work Phone: Platelets bldon 02-18-2022 Platelets (Bld) [#/Vol] 257 10*3/uL 150-450 [facility] Work Phone: Serum or plasma albumin lorie urement (mass/volume)on 02-18-2022 Albumin [Mass/Vol] 3.7 g/dL 3.2-5.0 [facility] Work Phone: Serum or plasma albumin/glob ulin mass ratioon 02-18-2022 Albumin/Globulin [Mass ratio] 1.0 {ratio} 0.9-2.4 [facility] Work Phone: Serum or plasma calcium lorie urement (mass/volume)on 02-18-2022 Calcium [Mass/Vol] 9.0 mg/dL 8.5-10.1 [facility] Work Phone: Serum or plasma cholesterol in HDL measurement (mass/volume)on 02-18-2022 Cholesterol in HDL [Mass/Vol] 80 mg/dL >40 [facility] Work Phone: Comment on above: The drugs N-Acetylcy steine and Metamizole may falsely depress this assay. Reference Range HDL <40 mg/dL Low HDL Cholesterol HDL >or= 60 mg/dL High HDL Cholesterol Serum or plasma cholesterol in VLDL measurement (mass/volume)on 02-18-2022 Cholesterol in VLDL [Mass/Vol] 15 mg/dL 5-40 [facility] Work Phone: Serum or plasma creatinine m easurement (mass/volume)on 02-18-2022 Creatinine [Mass/Vol] 0.72 mg/dL 0.55-1.02 [facility] Work Phone: Comment on above: The validity of the calculated GFR & GFRAA in patients over 70 years has not been determined. Clinical correlation is essential. Serum or plasma low density lipoprotein (LDL) cholesterol measurement (mass/volume)on 02-18-2022 Cholesterol in LDL [Mass/Vol] 62 mg/dL 0-130 [facility] Work Phone: Serum or plasma urea nitroge n measurement (mass/volume)on 02-18-2022 Urea nitrogen [Mass/Vol] 12 mg/dL 7-18 [facility] Work Phone: Thin prep Papanicolaou smear with manual screeningon 02-18-2022 Thin prep Papanicolaou smear with manual screening 27 U/L 15-37 [facility] Work Phone: Thin prep Papanicolaou smear with manual screening 5 5-15 [facility] Work Phone: Cirilo 04-22-2021 CNPN Telephone (AKGABEB) BEN ARROYO ([id number]) 1945 F Date Time Provider Department 04/22/21 [facility] During your visit today, we recorded the following information about you: Allergies As of Date: 04/22/2021 Noted Allergy Reaction LACTOSE 02/01/2021 6 - Diarrhea PENICILLINS 05/30/2020 4 - Hives Date Reviewed: 02/03/2021 Reviewed by: Asia Shipley RN - Fully Assessed Reason for Visit: Cardiac Rehab [3553] Cmt: Referral Letter sent Prescriptions as of 04/22/2021 - ticagrelor (BRILINTA) 90 mg tablet Take 1 tablet by mouth twice daily. - metoprolol succinate ER (TOPROL XL) 25 mg 24 hr tablet Take 0.5 tablets by mouth once daily. - Estradiol (ESTRACE) 0.5 mg tablet Take 0.5 mg by mouth once daily. - biotin 100 mg/gram powd Take by mouth. - cholecalciferol, vitamin D3, (CHOLECALCIFEROL, VITD3,, BULK,) 100,000 unit/gram powd Take 50 mcg by mouth. - aspirin, enteric coated (ASPIRIN, ENTERIC COATED) 81 mg EC tablet Take 81 mg by mouth. - Flaxseed Oil oil 1,000 mg twice daily. - levothyroxine (SYNTHROID) 25 mcg tablet Take 25 mcg by mouth once daily. - nitroglycerin sublingual (NITROQUICK) 0.4 mg SL tablet Dissolve 0.4 mg under the tongue every 5 minutes as needed. - rosuvastatin (CRESTOR) 20 mg tablet Take 20 mg by mouth once daily. Problem List As Of Date 04/22/2021 Noted Resolved Chest pain [R07.9] 02/01/2021 02/04/2021 Unstable angina (HCC) [I20.0] 02/02/2021 02/04/2021 Encounter Status:Closed by [facility] on 04/22/21 [facility] Basic metabolic 2000 panelon 02-04-2021 Anion gap [Moles/Vol] 12 mmol/L Normal 9-18 [facility] Comment on above: Order Comment: Speci men Type: BLOOD SPECIMEN Performed By: #### 2 4321-2 #### [facility] CLIA [id number] [address] [place] [address] Calcium [Mass/Vol] 9.2 mg/dL Normal 8.5-10.2 [facility] Comment on above: Order Comment: Speci men Type: BLOOD SPECIMEN Performed By: #### 2 4321-2 #### [facility] CLIA [id number] [address] [place] [address] Chloride [Moles/Vol] 98 mmol/L Normal 97-105 [facility] Comment on above: Order Comment: Speci men Type: BLOOD SPECIMEN Performed By: #### 2 4321-2 #### [facility] CLIA [id number] [address] [place] [address] CO2 [Moles/Vol] 22 mmol/L Normal 22-30 [facility] Comment on above: Order Comment: Speci men Type: BLOOD SPECIMEN Performed By: #### 2 4321-2 #### [facility] CLIA [id number] [address] [place] [address] Creatinine [Mass/Vol] 0.71 mg/dL Normal 0.58-0.96 [facility] Comment on above: Order Comment: Speci men Type: BLOOD SPECIMEN Performed By: #### 2 4321-2 #### [facility] CLIA [id number] [address] [place] [address] GFR/1.73 sq M.predicted MDRD (S/P/Bld) [Vol rate/Area] mL/min/{1.73_m2} [facility] Comment on above: Order Comment: Speci men Type: BLOOD SPECIMEN Result Comment: >60 eGFR (Estimated GFR) Units of measure: mL/min/1.73 meters squared eGFR is derived from the reexpressed MDRD Study equation using the following parameters: serum creatinine, age, gender and race. The creatinine assay has been calibrated to be traceable to IDMS. An eGFR <60 mL/min/1.73m2 for >3 months is consistent with chronic kidney disease. Refer to KDOQI guidelines for clinical interpretation. In patients with unstable renal function, e.g. those with acute kidney injury, the eGFR may not accurately reflect actual GFR. Performed By: #### 2 4321-2 #### [facility] CLIA [id number] [address] [place] [address] Glucose [Mass/Vol] 86 mg/dL Normal 74-99 [facility] Comment on above: Order Comment: Speci men Type: BLOOD SPECIMEN Result Comment: The [place] [employer] (ADA) provides guidance for cutoff values for fasting glucose and random glucose. The ADA defines fasting as no caloric intake for at least 8 hours. Fasting plasma glucose results between 100 to 125 mg/dL indicate increased risk for diabetes (prediabetes). Fasting plasma glucose results greater than or equal to 126 mg/dL meet the criteria for diagnosis of diabetes. In the absence of unequivocal hyperglycemia, results should be confirmed by repeat testing. In a patient with classic symptoms of hyperglycemia or hyperglycemic crisis, random plasma glucose results greater than or equal to 200 mg/dL meet the criteria for diagnosis of diabetes. Reference: Standards of Medical Care in Diabetes 2016, [place] [employer]. Diabetes Care. 2016.39(Suppl 1). Performed By: #### 2 4321-2 #### [facility] CLIA [id number] [address] [place] [address] Potassium [Moles/Vol] 4.1 mmol/L Normal 3.7-5.1 [facility] Comment on above: Order Comment: Speci men Type: BLOOD SPECIMEN Performed By: #### 2 4321-2 #### [facility] CLIA [id number] [address] [place] [address] Sodium [Moles/Vol] 132 mmol/L Low 136-144 [facility] Comment on above: Order Comment: Speci men Type: BLOOD SPECIMEN Performed By: #### 2 4321-2 #### [facility] CLIA [id number] [address] [place] [address] Urea nitrogen [Mass/Vol] 15 mg/dL Normal 7-21 [facility] Comment on above: Order Comment: Speci men Type: BLOOD SPECIMEN Performed By: #### 2 4321-2 #### [facility] CLIA [id number] [address] [place] [id number] CASE MANAGEMon 02-04-2021 [facility]NAG[facility] HNO ID: [id number] Author: Milena Fowler RN Service: ? Author Type: Registered Nurse Type: Care Mgt Progress Note Filed: 02/04/2021 11:38 AM Note Text: CARE MANAGEMENT PROGRESS NOTE SERVICE DATE: 02/04/2021 SERVICE TIME: 11:38 AM LOS: 2 days This patient has been screened for Care Management Transitional Planning Services. At this time, it does not appear this patient will require transition planning services. Should this change, and the patient require transition planning services during this admission, please call [phone]. Milena Fowler RN February 04, 2021 11:38 AM SIGNATURE: Milena Fowler RN PATIENT NAME: Ben Arroyo DATE: February 04, 2021 TIME: 11:38 AM PAGER/CONTACT #: [phone] Normal [facility] CBC panel Auto (Bld)on 02-04 Erythrocyte distribution width (RBC) [Ratio] 13.1 % Normal 11.5-15.0 [facility] Comment on above: Order Comment: Speci men Type: BLOOD SPECIMEN Performed By: #### 5 8410-2 #### [facility] CLIA [id number] [address] [place] [id number] Hematocrit (Bld) [Volume fraction] 34.1 % Low 36.0-46.0 [facility] Comment on above: Order Comment: Speci men Type: BLOOD SPECIMEN Performed By: #### 5 8410-2 #### [facility] CLIA [id number] [address] [place] [id number] Hemoglobin (Bld) [Mass/Vol] 11.6 g/dL Normal 11.5-15.5 [facility] Comment on above: Order Comment: Speci men Type: BLOOD SPECIMEN Performed By: #### 5 8410-2 #### [facility] CLIA [id number] [address] [place] [address] MCH (RBC) [Entitic mass] 29.3 pg Normal 26.0-34.0 [facility] Comment on above: Order Comment: Speci men Type: BLOOD SPECIMEN Performed By: #### 5 8410-2 #### [facility] CLIA [id number] [address] [place] [address] MCHC (RBC) [Mass/Vol] 34.0 g/dL Normal 30.5-36.0 [facility] Comment on above: Order Comment: Speci men Type: BLOOD SPECIMEN Performed By: #### 5 8410-2 #### [facility] CLIA [id number] [address] [place] [address] MCV (RBC) [Entitic vol] 86.1 fL Normal 80.0-100.0 [facility] Comment on above: Order Comment: Speci men Type: BLOOD SPECIMEN Performed By: #### 5 8410-2 #### [facility] CLIA [id number] [address] [place] [address] Nucleated RBC (Bld) [#/Vol] 10*3/uL Normal <0.01 [facility] Comment on above: Order Comment: Speci men Type: BLOOD SPECIMEN Performed By: #### 5 8410-2 #### [facility] CLIA [id number] [address] [place] [address] Platelet mean volume (Bld) [Entitic vol] 9.4 fL Normal 9.0-12.7 [facility] Comment on above: Order Comment: Speci men Type: BLOOD SPECIMEN Performed By: #### 5 8410-2 #### [facility] CLIA [id number] [address] [place] [address] Platelets (Bld) [#/Vol] 282 10*3/uL Normal 150-400 [facility] Comment on above: Order Comment: Speci men Type: BLOOD SPECIMEN Performed By: #### 5 8410-2 #### [facility] CLIA [id number] [address] [place] [address] RBC (Bld) [#/Vol] 3.96 10*6/uL Normal 3.90-5.20 [facility] Comment on above: Order Comment: Speci men Type: BLOOD SPECIMEN Performed By: #### 5 8410-2 #### [facility] CLIA [id number] [address] [place] [address] WBC (Bld) [#/Vol] 11.58 10*3/uL High 3.70-11.00 [facility] Comment on above: Order Comment: Speci men Type: BLOOD SPECIMEN Performed By: #### 5 8410-2 #### [facility] CLIA [id number] [address] [place] [address] CNDSon 02-04-2021 [facility] HNO ID: [id number] Author: Florin Meyer MD Service: Cardiovascular Medicine Author Type: Resident Type: Discharge Summary Filed: 02/04/2021 11:46 AM Note Text: Attestation signed by Yessica Greene MD at 02/06/2021 1:37 PM Attending Note I evaluated the patient and personally participated in the rapp components. I agree with the resident's findings and plan as documented and have discussed the case and management of the patient's care with the resident. Seen and reviewed by me on 02/04/21 Signature: Yessica Greene MD Date: 02/06/2021 Time: 1:37 PM [facility] DISCHARGE SUMMARY Patient: Ben Arroyo : 1945 Date of Admission: 02/01/2021 Date of Discharge: 02/04/2021 Attending at Discharge: Dr. Greene [facility] Disposition to: Home Condition at Discharge: Stable Principal Diagnosis: Coronary Artery Disease Secondary Diagnoses: Problem List Noted Noted By Resolved Resolved By Unstable angina (HCC) 02/02/2021 Candido Sauceda MD 02/04/2021 Florin Meyer MD Chest pain 02/01/2021 Marta Phillips DO 02/04/2021 Maribeth Guardado MD Medications: Please see Medication Reconciliation Form from date of discharge. Stopped Medications: Medications Discontinued During This Encounter Medication Reason - amLODIPine (NORVASC) 2.5 mg tablet - cholecalciferol (VITAMIN D3) 400 unit tab - Cranberry 400 mg cap - ibuprofen (MOTRIN) 200 mg tablet - levothyroxine (SYNTHROID) 25 mcg tablet - metoprolol tartrate, short acting, (LOPRESSOR) 25 mg tablet - PW-7-ECB-DHA-Fish Oil-Flax-E [phone] qf-uc-bv-unit cap - simvastatin (ZOCOR) 40 mg tablet - estradiol (ESTRACE) 0.01 % (0.1 mg/gram) vaginal cream - amLODIPine 2.5 mg tab(s) (NORVASC) - heparin 1,000 Units in D5W 250 mL Auto DC with change in level of care. - heparin 3,000 Units in NaCl 0.9% 500 mL irrigation Auto DC with change in level of care. - NaCl 0.9% iv infusion - aspirin 81 mg chewable tab(s) Duplicate Entry - sodium chloride 0.9 % (flush) 2-10 mL (BD POSIFLUSH) - perflutren lipid microspheres 1.1 mg/mL 1.3 mL injection (DEFINITY) - amLODIPine (NORVASC) 2.5 mg tablet - docusate sodium (COLACE) 100 mg capsule Brief HPI: Ms. Arroyo is a 75-year-old female with a history of coronary artery disease status post one-vessel bypass surgery approximately 22 years ago who presented with chest pain. Hospital Course: You have a history of coronary artery disease and had a one-vessel bypass surgery approximately 22 years ago. You also underwent a cardiac stress test which was reportedly not normal. ?As a result, you then had a cardiac catheterization (imaging procedure of your heart) performed on January 26 that revealed 60% blockage in one artery and 80% blockage in another. Following this, you developed severe chest pressure with associated nausea, diaphoresis and shortness of breath. You went back to [facility]?where you were given aspirin, morphine and nitroglycerin with resolution of your symptoms. ?You subsequently transferred to [facility] for further evaluation. ? During hospitalization, you underwent a left heart catheterization (imaging procedure of your heart). You had a successful PTCA (procedure that opens up blocked arteries) with CARLENE (a stent) into your arteries with good result obtained. Following this procedure you were stabilized and your symptoms improved drastically. You were deemed appropriate for discharge the next day. You are discharged with the following medications: Metoprolol, asprin, Brillanta, and Crestor. You are to follow-up with your Broadcast Program Director, Dr. Greene in 2 weeks. Consults: None Procedures: Left heart catheterization and PTCA procedure Tests Pending at time of Discharge: None Discharge Instructions: Diet: Low-salt and low-cholesterol Activity restrictions: Cannot return back to work until 3 weeks from now. No heavy lifting of no more than 10 to 15 pounds. Follow-up: With primary care provider, Adela Harley MD, within 1 to 2 weeks. Follow-up with your head concierge, Dr. Georgette Greene in 2 weeks. Medications on Discharge: Current Discharge Medication List START taking these medications ticagrelor (BRILINTA) 90 mg Take 90 mg by mouth twice daily. Qty: 60 tablet Refills: 0 metoprolol succinate ER (TOPROL XL) 12.5 mg Take 12.5 mg by mouth once daily. Qty: 15 tablet Refills: 0 CONTINUE these medications which have NOT CHANGED Estradiol (ESTRACE) 0.5 mg Take 0.5 mg by mouth once daily. biotin 100 mg/gram powd Take by mouth. Cholecalciferol (VitD3) (Bulk) 50 mcg Take 50 mcg by mouth. aspirin, enteric coated (ASPIRIN, ENTERIC COATED) 81 mg Take 81 mg by mouth. Flaxseed Oil 1,000 mg 1, (more content not included)... [facility] PT EDon 02-04-2021 PT ED HNO ID: [id number] Author: Maggie Mckeon RD Service: Nutrition Therapy Author Type: Registered Dietitian Type: Patient Education Filed: 02/04/2021 12:30 PM Note Text: NUTRITION THERAPY PATIENT EDUCATION SERVICE DATE: 02/04/2021 SERVICE TIME: 1210 TOPIC: Diet: Heart Healthy LEARNING ASSESSMENT Individuals Assessed: Patient Preferred Learning Method: : Individual Instruction, Verbal Instruction and Written Instruction Barriers to Learning: : None Evident LEARNING RESPONSE Instruction Provided to: Patient Patient / Family Response: Verbalizes Understanding Method of Instruction: Teach Back Pt able to successfully stated what a heart healthy diet is (has been following for 22 years). Individual instruction Written instruction - handouts Verbal instruction Material(s) Provided to Patient: NCM: Cardiac TLC Nutrition Therapy Follow-Up Plan: Contact information given. Referral (Recommendation): Nutrition - Outpatient Pt able to stated what a heart healthy diet is, mentions she's been following for 22 years (since previous stent and CABG); praised her for her efforts. Pt frustrated with GI challenges given IBS, lactose intolerant + cardiac restrictions, gave her OP RD card to support her weight gain desires and possible expand food preferences as able/tolerated. MNT Billing: Initial Assess/15 min 1 unit SIGNATURE: Maggie Mckeon RD PATIENT NAME: Ben Arroyo DATE: February 04, 2021 TIME: 12:26 PM PAGER: [phone] [facility] ALLIED HEALTHon 02-03-2021 ALLIED HEALTH HNO ID: [id number] Author: Marleny Bray, Vice President Sales And Marketing Service: Cardiac Rehab Author Type: Vice President Sales And Marketing Type: Allied Health Filed: 02/03/2021 12:11 PM Note Text: CARDIAC REHABILITATION PATIENT EDUCATION PROGRESS NOTE Name: Ben Arroyo Date of Service: 02/03/2021 Time of Service: 1133 ASSESSMENT: Risk Factors Identified: Hyperlipidemia Hypertension RECOMMENDATIONS: Patient interested in Phase II Outpatient Cardiac Rehab: No DIAGNOSIS: Percutaneous Cardiac Intervention: CARLENE PCI Teaching Points: -Personal Modifiable Risk Factor Identification -Activity/Physical Exercise Recommendations -Outpatient Cardiac Rehabilitation READINESS TO LEARN: Cognitive Ability: Alert and Oriented Motivation to Learn: Interested Family Support: Unable to assess - Family not present Instruction Provided To: Patient and friend/other Patient Learns Best By: Written Instruction - Hand-outs and Verbal Instruction Factors Affecting Learning: None Physical Limitations Affecting Learning: None LEARNING RESPONSE: Method Of Instruction: Written instruction - handouts Verbal instruction Patient/Family Response: Verbalizes understanding of: Cardiac Rehab Follow-up Plan: No further educational needs identified at this time. Instructional Aids Used: Cardiac Rehabilitation Brochure Signature: Marleny Bray Vice President Sales And Marketing Pager: [phone] Date: February 03, 2021 Time: 12:09 PM Normal [facility] LIPID PANEL BASICon 02-04-20 21 Cholesterol [Mass/Vol] 119 mg/dL Normal <200 [facility] Comment on above: Order Comment: Speci men Type: BLOOD SPECIMEN Result Comment: <200 mg/dL, Desirable 200-239 mg/dL, Borderline high >239 mg/dL, High Performed By: #### L IPB ####[facility] [id number] [place] [address] Cholesterol in HDL [Mass/Vol] 67 mg/dL Normal >39 [facility] Comment on above: [facility]: [facility]: B[facility]OD [facility]CIMEN Result Comment: 40-5 9 mg/dL, Acceptable >59 mg/dL, High: Negative risk factor for coronary heart disease <40 mg/dL, Low: Positive risk factor for coronary heart disease Performed By: #### L IPB ####[facility] [id number] [place] [address] Cholesterol in LDL [Mass/Vol] 35 mg/dL Normal <100 [facility] Comment on above: Order Comment: [facility] Type: BLOOD SPECIMEN Result Comment: <100 mg/dL, Optimal 100-129 mg/dL, Near optimal/above optimal 130-159 mg/dL, Borderline high 160-189 mg/dL, High >189 mg/dL, Very high Secondary prevention optimal LDL Cholesterol levels are recommended to be < 70 mg/dL Performed By: #### L IPB ####[facility] [id number] [place] [address] Cholesterol in LDL/Cholesterol in HDL [Mass ratio] 0.52 {ratio} Normal <2.54 [facility] Comment on above: Order Comment: Speci men Type: BLOOD SPECIMEN Result Comment: Refe kathie: 1. National Cholesterol Education Program ATP III Guideline At-A-Glance Quick Desk Reference: National Heart, Lung, and Blood [place]. National Institutes of Health. 2001: NIH Publication No. 01-3305. 2. An International Atherosclerosis Society position paper: global recommendations for the management of dyslipidemia: executive summary, Atherosclerosis. 2014: 232(2):410-413. Performed By: #### L IPB ####[facility] [id number] [place] [address] Cholesterol in VLDL [Mass/Vol] 17 mg/dL Normal <30 [facility] Comment on above: Order Comment: Speci men Type: BLOOD SPECIMEN Performed By: #### L IPB ####[facility] [id number] [place] [address] Cholesterol non HDL [Mass/Vol] 52 mg/dL Normal <130 [facility] Comment on above: Order Comment: Speci men Type: BLOOD SPECIMEN Result Comment: <130 mg/dL, Optimal 130-159 mg/dL, Near optimal/above optimal 160-189 mg/dL, Borderline high 190-219 mg/dL, High >219 mg/dL, Very high Secondary prevention optimal non HDL Cholesterol levels are recommended to be <100 mg/dL Performed By: #### L IPB ####[facility] [id number] [place] [address] Cholesterol.total/Chol esterol in HDL [Mass ratio] 1.78 {ratio} Normal <5.10 [facility] Comment on above: Order Comment: Speci men Type: BLOOD SPECIMEN Performed By: #### L IPB ####[facility] [id number] [place] [address] FASTING TIME 10 hours Normal [facility] Comment on above: Order Comment: Speci men Type: BLOOD SPECIMEN Performed By: #### L IPB ####[facility] [id number] [place] [address] Triglyceride [Mass/Vol] 85 mg/dL Normal <150 [facility] Comment on above: Order Comment: Speci men Type: BLOOD SPECIMEN Result Comment: <150 mg/dL, Normal 150-199 mg/dL, Borderline high 200-499 mg/dL, High >499 mg/dL, Very high Performed By: #### L IPB ####[facility]IA [id number] [place] [address] 2019 CORONAVIRUSon 1 SARS-CoV-2 (COVID-19) RNA CANDIS+probe Ql (Unsp spec) COVID 19 SOURCE TAPE FOLDING MACHINE OPERATOR: UPPER RESPIRATORY TRACT SWAB COVID 19 RESULT TAPE FOLDING MACHINE OPERATOR: Negative for COVID19 (SARS CoV2) by RT-PCR or equivalent method. This test was developed and its performance characteristics determined by [facility] [place]. This test has been authorized by FDA under an Emergency Use Authorization (EUA). This test has been validated in accordance with the FDA's Guidance Document Policy for Diagnostics Testing in Laboratories Certified to Perform High Complexity Testing under CLIA prior to Emergency use Authorization for Coronavirus Disease 2019 during the Public Health Emergency issued on September 01, 2019. Test performed by [facility], [facility] [place], [address] [address]. Normal [facility] Comment on above: Performed By: #### C OVID ####[facility] LABCLIA [id number] [place] [address] Basic metabolic 2000 panelon 02-02-2021 Anion gap [Moles/Vol] 9 mmol/L Normal 9-18 [facility] Comment on above: Order Comment: Speci men Type: BLOOD SPECIMEN Performed By: #### 2 4321-2 #### [facility] CLIA [id number] [address] [place] [address] Calcium [Mass/Vol] 9.2 mg/dL Normal 8.5-10.2 [facility] Comment on above: Order Comment: Speci men Type: BLOOD SPECIMEN Performed By: #### 2 4321-2 #### [facility] CLIA [id number] [address] [place] [address] Chloride [Moles/Vol] 101 mmol/L Normal 97-105 [facility] Comment on above: Order Comment: Speci men Type: BLOOD SPECIMEN Performed By: #### 2 4321-2 #### [facility] CLIA [id number] [address] [place] [address] CO2 [Moles/Vol] 24 mmol/L Normal 22-30 [facility] Comment on above: Order Comment: Speci men Type: BLOOD SPECIMEN Performed By: #### 2 4321-2 #### [facility] CLIA [id number] [address] [place] [address] Creatinine [Mass/Vol] 0.70 mg/dL Normal 0.58-0.96 [facility] Comment on above: Order Comment: Speci men Type: BLOOD SPECIMEN Performed By: #### 2 4321-2 #### [facility] CLIA [id number] [address] [place] [address] GFR/1.73 sq M.predicted MDRD (S/P/Bld) [Vol rate/Area] mL/min/{1.73_m2} Normal [facility] Comment on above: Order Comment: Speci men Type: BLOOD SPECIMEN Result Comment: >60 eGFR (Estimated GFR) Units of measure: mL/min/1.73 meters squared eGFR is derived from the reexpressed MDRD Study equation using the following parameters: serum creatinine, age, gender and race. The creatinine assay has been calibrated to be traceable to IDMS. An eGFR <60 mL/min/1.73m2 for >3 months is consistent with chronic kidney disease. Refer to KDOQI guidelines for clinical interpretation. In patients with unstable renal function, e.g. those with acute kidney injury, the eGFR may not accurately reflect actual GFR. Performed By: #### 2 4321-2 #### [facility] CLIA [id number] [address] [place] [address] Glucose [Mass/Vol] 94 mg/dL Normal 74-99 [facility] Comment on above: Order Comment: Speci men Type: BLOOD SPECIMEN Result Comment: The [place] Diabetes Association (ADA) provides guidance for cutoff values for fasting glucose and random glucose. The ADA defines fasting as no caloric intake for at least 8 hours. Fasting plasma glucose results between 100 to 125 mg/dL indicate increased risk for diabetes (prediabetes). Fasting plasma glucose results greater than or equal to 126 mg/dL meet the criteria for diagnosis of diabetes. In the absence of unequivocal hyperglycemia, results should be confirmed by repeat testing. In a patient with classic symptoms of hyperglycemia or hyperglycemic crisis, random plasma glucose results greater than or equal to 200 mg/dL meet the criteria for diagnosis of diabetes. Reference: Standards of Medical Care in Diabetes 2016, [place] [employer] Association. Diabetes Care. 2016.39(Suppl 1). Performed By: #### 2 4321-2 #### [facility] CLIA [id number] [address] [place] [address] Potassium [Moles/Vol] 4.5 mmol/L Normal 3.7-5.1 [facility] Comment on above: Order Comment: Speci men Type: BLOOD SPECIMEN Performed By: #### 2 4321-2 #### [facility] CLIA [id number] [address] [place] [address] Sodium [Moles/Vol] 134 mmol/L Low 136-144 [facility] Comment on above: Order Comment: Speci men Type: BLOOD SPECIMEN Performed By: #### 2 4321-2 #### [facility] CLIA [id number] [address] [place] [address] Urea nitrogen [Mass/Vol] 9 mg/dL Normal 7-21 [facility] Comment on above: Order Comment: Speci men Type: BLOOD SPECIMEN Performed By: #### 2 4321-2 #### [facility] CLIA [id number] [address] [place] [address] CBC panel Auto (Bld)on 02-02 Erythrocyte distribution width (RBC) [Ratio] 13.1 % Normal 11.5-15.0 [facility] Comment on above: Order Comment: Speci men Type: BLOOD SPECIMEN Performed By: #### 5 8410-2 #### [facility] CLIA [id number] [address] [place] [address] Hematocrit (Bld) [Volume fraction] 35.0 % Low 36.0-46.0 [facility] Comment on above: Order Comment: Speci men Type: BLOOD SPECIMEN Performed By: #### 5 8410-2 #### [facility] CLIA [id number] [address] [place] [address] Hemoglobin (Bld) [Mass/Vol] 11.8 g/dL Normal 11.5-15.5 [facility] Comment on above: Order Comment: Speci men Type: BLOOD SPECIMEN Performed By: #### 5 8410-2 #### [facility] CLIA [id number] [address] [place] [address] MCH (RBC) [Entitic mass] 29.4 pg Normal 26.0-34.0 [facility] Comment on above: Order Comment: Speci men Type: BLOOD SPECIMEN Performed By: #### 5 8410-2 #### [facility] CLIA [id number] [address] [place] [address] MCHC (RBC) [Mass/Vol] 33.7 g/dL Normal 30.5-36.0 [facility] Comment on above: Order Comment: Speci men Type: BLOOD SPECIMEN Performed By: #### 5 8410-2 #### [facility] CLIA [id number] [address] [place] [address] MCV (RBC) [Entitic vol] 87.1 fL Normal 80.0-100.0 [facility] Comment on above: Order Comment: Speci men Type: BLOOD SPECIMEN Performed By: #### 5 8410-2 #### [facility] CLIA [id number] [address] [place] [address] Nucleated RBC (Bld) [#/Vol] 10*3/uL Normal <0.01 [facility] Comment on above: Order Comment: Speci men Type: BLOOD SPECIMEN Performed By: #### 5 8410-2 #### [facility] CLIA [id number] [address] [place] [address] Platelet mean volume (Bld) [Entitic vol] 9.5 fL Normal 9.0-12.7 [facility] Comment on above: Order Comment: Speci men Type: BLOOD SPECIMEN Performed By: #### 5 8410-2 #### [facility] CLIA [id number] [address] [place] [address] Platelets (Bld) [#/Vol] 267 10*3/uL Normal 150-400 [facility] Comment on above: Order Comment: Speci men Type: BLOOD SPECIMEN Performed By: #### 5 8410-2 #### [facility] CLIA [id number] [address] [place] [address] RBC (Bld) [#/Vol] 4.02 10*6/uL Normal 3.90-5.20 [facility] Comment on above: Order Comment: Speci men Type: BLOOD SPECIMEN Performed By: #### 5 8410-2 #### [facility] CLIA [id number] [address] [place] [address] WBC (Bld) [#/Vol] 7.79 10*3/uL Normal 3.70-11.00 [facility] Comment on above: Order Comment: Speci men Type: BLOOD SPECIMEN Performed By: #### 5 8410-2 #### [facility] CLIA [id number] [address] [place] [address] CONSULTon 02-02-2021 CONSULT HNO ID: [id number] Author: Jase Somers MD Service: Cardiovascular Medicine Author Type: Physician Type: Consults Filed: 02/02/2021 12:11 PM Note Text: CONSULT: CARDIOLOGY SERVICE SERVICE DATE: 02/02/2021 CONSULTING PHYSICIAN: Jase Somers PCP: Adela Harley MD ATTENDING: Candido Sauceda MD REASON FOR CONSULT: Chest pain Subjective CHIEF COMPLAINT: Chest pain [R07.9] HISTORY OF PRESENT ILLNESS: Ms. Arroyo is a 75 year old female with a history of coronary artery disease status post one-vessel bypass surgery approximately 22 years ago, breast cancer status post remote double mastectomy, hypertension, hyperlipidemia, hypothyroidism and irritable bowel syndrome who presented to the hospital with complaints of chest pain. Patient reports that after her one-vessel bypass surgery 22 years ago, she had symptoms of stable angina only if she overexerted herself. However, in the last 1 to 2 years, she has started noticing worsening symptoms of exertional chest pain and dyspnea. She moved to a new house in [place] approximately a year ago as she was no longer able to take care of her prior yard due to recurrent episodes of exertional chest pressure. Since moving to [place], patient has recently established care with Dr. [...] evaluation with an FFR and rotablation at [facility] this upcoming . However, patient reports that yesterday while laying on the couch, she developed severe substernal chest pressure starting in her lower chest and radiating upwards into her neck, jaw and back. She did experience associated nausea, diaphoresis and shortness of breath. She went back to [place] where she was given aspirin, morphine and 4 sublingual nitroglycerin with resolution of her symptoms. She was subsequently transferred to [facility] for further evaluation. Patient otherwise denies any complaints of orthopnea, paroxysmal nocturnal dyspnea, lower extremity edema, presyncope, syncope, or palpitations. PAST MEDICAL HISTORY Diagnosis Date - Anemia [...] knee and toes - TOTAL ABDOM HYSTERECTOMY Social history: Patient denies any history of tobacco, alcohol or illicit substance use. Family history: Patient's father with 5 vessel bypass surgery at the age of 83. Patient's daughter with PCI at the age of 46 Prior to Admission Medications Prescriptions Last Dose Informant Patient Reported? Taking? Estradiol (ESTRACE) 0.5 mg tablet Yes Yes Sig: Take 0.5 mg by mouth once daily. Flaxseed Oil oil Yes Yes Si,000 mg twice daily. amLODIPine (NORVASC) 2.5 mg tablet Yes Yes Sig: Take 2.5 mg by mouth. aspirin, enteric coated (ASPIRIN, ENTERIC COATED) 81 mg EC tablet Yes Yes Sig: Take 81 mg by mouth. biotin 100 mg/gram powd Yes Yes Sig: Take by mouth. cholecalciferol, vitamin D3, (CHOLECALCIFEROL, VITD3,, BULK,) 100,000 unit/gram powd Yes Yes Sig: Take 50 mcg by mouth. docusate sodium (COLACE) 100 mg capsule Yes Yes Sig: Take 100 mg by mouth. levothyroxine (SYNTHROID) 25 mcg tablet Yes Yes Sig: Take 25 mcg by mouth once daily. nitroglycerin sublingual (NITROQUICK) 0.4 mg SL tablet Yes Yes Sig: Dissolve 0.4 mg under the tongue every 5 minutes as needed. rosuvastatin (CRESTOR) 20 mg tablet Yes Yes Sig: Take 20 mg by mouth once daily. Facility-Administered Medications: None Current Facility-Administered Medications Medication Dose Route Frequency [...] - metoprolol succinate ER 12.5 mg tab(s) (TOPR (more content not included)... Normal [facility] HIGH SENSITIVITY TROPONIN To n 02-02-2021 HIGH SENSITIVITY KAMALA 12 ng/L High <12 [facility] Comment on above: Order Comment: Speci men Type: BLOOD SPECIMEN Result Comment: When assessing risk for acute coronary syndromes: In patients undergoing blood draw greater than or equal to 2 hours from symptom onset, with history of very low to moderate risk and non-ischemic ECG, an initial hs-Troponin T less than 12 ng/L AND a 1 hour delta hs-Troponin T less than 3 ng/L should be considered very low risk for 30 day MACE. Performed By: #### H STNT #### [facility] CLIA [id number] [address] [place] [address] HIGH SENSITIVITY KAMALA 9 ng/L Normal <12 [facility] Comment on above: Order Comment: Speci men Type: BLOOD SPECIMEN Result Comment: When assessing risk for acute coronary syndromes: In patients undergoing blood draw greater than or equal to 2 hours from symptom onset, with history of very low to moderate risk and non-ischemic ECG, an initial hs-Troponin T less than 12 ng/L AND a 1 hour delta hs-Troponin T less than 3 ng/L should be considered very low risk for 30 day MACE. Performed By: #### H STNT #### [facility] CLIA [id number] [address] [place] [address] HIGH SENSITIVITY KAMALA 10 ng/L Normal <12 [facility] Comment on above: Order Comment: Speci men Type: BLOOD SPECIMEN Result Comment: When assessing risk for acute coronary syndromes: In patients undergoing blood draw greater than or equal to 2 hours from symptom onset, with history of very low to moderate risk and non-ischemic ECG, an initial hs-Troponin T less than 12 ng/L AND a 1 hour delta hs-Troponin T less than 3 ng/L should be considered very low risk for 30 day MACE. Performed By: #### H STNT #### [facility] CLIA [id number] [address] [place] [address] HISTORY PHYSICALon HISTORY PHYSICAL HNO ID: [id number] Author: Marta Phillips DO Service: Hospital Medicine Author Type: Physician Type: HANDP Filed: 02/01/2021 9:20 PM Note Text: DEPARTMENT OF HOSPITAL MEDICINE HISTORY AND PHYSICAL EXAM SERVICE DATE: 02/01/2021 SERVICE TIME: 9:16 PM Primary Care Physician: No primary care provider on file. NIGHT AND WEEKEND COVERAGE: From 7am - 7pm, please call Sound After 7pm, please call cross cover pager #[phone] Subjective CHIEF COMPLAINT: Chest pain HPI: This is a 75 year old female who presents with chest pain. History is limited as she was not sent with any paperwork from [place] from the emergency room visit. She was only sent with vital signs and lab work. She recently had a heart catheterization that apparently showed OM1 at 60% occlusion and RCA at 80%. She was apparently scheduled for an FFR and rotablation at [facility]. She presented at [facility] with complaints of chest pain. She relates that her chest pain was in the midsternal area rating up into her neck and jaw down both of her arms. [place] attempted to transfer her to [facility] but there were no beds available. She currently is not having any chest pain or shortness of breath that is new at this time. She tells me she does have some chronic shortness of breath that has gotten worse since her stress test. PAST MEDICAL HISTORY Diagnosis Date - Anemia [...] knee and toes - TOTAL ABDOM HYSTERECTOMY FAMILY HISTORY Family history unknown: Yes Social History Tobacco Use - Smoking status: Never Smoker - Smokeless tobacco: Never Used Substance Use Topics - Alcohol use: Not on file - Drug use: Not on file HOME MEDICATIONS: Prior to Admission Medications Prescriptions Last Dose Informant Patient Reported? Taking? Cranberry 400 mg cap Yes No Sig: Take 400 mg by mouth once daily. Flaxseed Oil oil Yes Yes Si,000 mg twice daily. LI-1-RFQ-DHA-Fish Oil-Flax-E [phone] nl-kk-ch-unit cap Yes No Si,000 mg. amLODIPine (NORVASC) 2.5 mg tablet Yes Yes Sig: Take 2.5 mg by mouth. amLODIPine (NORVASC) 2.5 mg tablet Yes No Sig: Take 2.5 mg by mouth once daily. aspirin, enteric coated (ASPIRIN, ENTERIC COATED) 81 mg EC tablet Yes Yes Sig: Take 81 mg by mouth. biotin 100 mg/gram powd Yes Yes Sig: Take by mouth. cholecalciferol (VITAMIN D3) 400 unit tab Yes No Sig: Take 400 Units by mouth. cholecalciferol, vitamin D3, (CHOLECALCIFEROL, VITD3,, BULK,) 100,000 unit/gram powd Yes Yes Sig: Take 50 mcg by mouth. docusate sodium (COLACE) 100 mg capsule Yes Yes Sig: Take 100 mg by mouth. estradiol (ESTRACE) 0.01 % (0.1 mg/gram) vaginal cream Yes Yes Sig: Use 0.1 application vaginally. ibuprofen (MOTRIN) 200 mg tablet Yes No Sig: Take 200 mg by mouth every 6 hours as needed. levothyroxine (SYNTHROID) 25 mcg tablet Yes No Sig: Take 25 mcg by mouth. levothyroxine (SYNTHROID) 25 mcg tablet Yes Yes Sig: Take 25 mcg by mouth once daily. metoprolol tartrate, short acting, (LOPRESSOR) 25 mg tablet Yes No Sig: Take 25 mg by mouth. nitroglycerin sublingual (NITROQUICK) 0.4 mg SL tablet Yes Yes Sig: Dissolve 0.4 mg under the tongue every 5 minutes as needed. rosuvastatin (CRESTOR) 20 mg tablet Yes Yes Sig: Take 20 mg by mouth once daily. simvastatin (ZOCOR) 40 mg tablet Yes No Sig: Take 40 mg by mouth. Facility-Administered Medications: None ALLERGIES Allergen Reactions - Lactose Diarrhea - Penicillins Hives REVIEW OF SYSTEM: All ROS are negative except those noted in HPI Objective PHYSICAL EXAM: BP 160/82 Pulse 66 Temp (Src) 98.2 (Oral) Resp 20 SpO2 99% O2 Therapy: Room Air GENERAL: Alert, no distress, cooperative, NAD SKIN: Warm, dry intact, no open lesions, no rashes HEAD/SINUSES: Normocephalic, atraumatic, oral mucosa moist EYES: PERRLA, EOMI NECK: No jugulovenous distention, Supple, no adenopathy LUNGS: Lungs clear to auscultation, no wheezes, ronchi, or rales CARDIAC: RRR, Normal S1 and S2; no rubs, murmurs, or gallops ABDOMEN: Abdomen soft, non-tender, BS normal, No masses or organomegaly EXTREMITIES: Extremities normal, no deformities, edema, clubbing or skin discoloration. NEURO: Sensation grossly intact, Cranial nerves II-XII intact, moves all 4 extremities, speech was clear and coherent - no chronic romano DATA: Diagnostic tests reviewed for today's visit: Most recent labs and imaging results. CBC: No results for input(s): WBC, RB (more content not included)... Normal [facility] CMP FASTINGon 08-27-2019 A:G RATIO 1.4 RATIO Normal 1.3-2.2 [facility] Comment on above: Performed By: #### L IP2, CMPF #### Testing performed at [address] [address] Albumin [Mass/Vol] 4.1 G/dl Normal 3.5-5.0 [facility] Comment on above: Performed By: #### L IP2, CMPF #### Testing performed at [address] [address] ALP [Catalytic activity/Vol] 46 U/L Normal 38-126 [facility] Comment on above: Performed By: #### L IP2, CMPF #### Testing performed at [address] [address] ALT [Catalytic activity/Vol] 17 U/L Normal 14-54 [facility] Comment on above: Performed By: #### L IP2, CMPF #### Testing performed at [address] [address] AST [Catalytic activity/Vol] 28 U/L Normal 15-41 [facility] Comment on above: Performed By: #### L IP2, CMPF #### Testing performed at [address] [address] Bilirubin [Mass/Vol] 0.5 mg/dL Normal 0.2-1.2 [facility] Comment on above: Performed By: #### L IP2, CMPF #### Testing performed at [address] [address] Creatinine [Mass/Vol] 0.67 mg/dL Normal 0.52-1.04 [facility] Comment on above: Performed By: #### L IP2, CMPF #### Testing performed at [address] [address] EST. GFR, >60 Normal [facility] Comment on above: Performed By: #### L IP2, CMPF #### Testing performed at [address] [address] EST. GFR,Non >60 Normal [facility] Comment on above: Performed By: #### L IP2, CMPF #### Testing performed at [address] [address] GFR/1.73 sq M predicted among non-blacks MDRD (S/P/Bld) [Vol rate/Area] Average GFR for 70+ years old = 75. Normal [facility] Comment on above: Result Comment: [employer] [place] Kidney disease, GFR = <60. Kidney failure, GFR = <15. The GFR estimate is not adjusted for extreme body surface area or acute process, nor has it been validated for women or ethnic groups other than and . Performed By: #### L IP2, CMPF #### Testing performed at [address] [address] Protein [Mass/Vol] 7.1 g/dL Normal 6.3-8.2 [facility] Comment on above: Performed By: #### L IP2, CMPF #### Testing performed at [address] [address] Urea nitrogen [Mass/Vol] 14 mg/dL Normal 7-20 [facility] Comment on above: Performed By: #### L IP2, CMPF #### Testing performed at [address] [address] Calcium [Mass/Vol] 9.1 mg/dL Normal 8.4-10.2 [facility] Comment on above: Performed By: #### L IP2, CMPF #### Testing performed at [address] [address] Chloride [Moles/Vol] 97 mmol/L Low 98-107 [facility] Comment on above: Performed By: #### L IP2, CMPF #### Testing performed at [address] [address] CO2 [Moles/Vol] 27 mmol/L Normal 22-[address] [facility] Comment on above: Performed By: #### L IP2, CMPF #### Testing performed at [address] [address] Glucose [Mass/Vol] 86 mg/dL Normal 70-100 [facility] Comment on above: Result Comment: NORMAL <100 mg/dL PREDIABETES 101-126 mg/dL DIABETES 126 mg/dL or higher Performed By: #### L IP2, CMPF #### Testing performed at [address] [address] Potassium [Moles/Vol] 4.3 mmol/L Normal 3.5-5.1 [facility] Comment on above: Performed By: #### L IP2, CMPF #### Testing performed at [address] [address] Sodium [Moles/Vol] 132 mmol/L Low 136-145 [facility] Comment on above: Performed By: #### L IP2, CMPF #### Testing performed at [address] [address] LIPID PROFILEon 08-27-2019 Cholesterol [Mass/Vol] 133 mg/dL Normal 100-199 [facility] Comment on above: Performed By: #### L IP2, CMPF #### Testing performed at [address] [address] Cholesterol in HDL [Mass/Vol] 59 mg/dL Normal 40-60 [facility] Comment on above: Performed By: #### L IP2, CMPF #### Testing performed at [address] [address] Cholesterol in LDL [Mass/Vol] 59 mg/dL Normal 0-100 [facility] Comment on above: Performed By: #### L IP2, CMPF #### Testing performed at [address] [address] Cholesterol in VLDL [Mass/Vol] 15 mg/dL Normal 5.0-25.0 [facility] Comment on above: Performed By: #### L IP2, CMPF #### Testing performed at [address] [address] Cholesterol.total/Chol esterol in HDL [Mass ratio] 2.25 {ratio} Normal [facility] Comment on above: Result Comment: RISK TOTAL/HDL RATIO MEN WOMEN 1/2 AVERAGE 3.43 3.27 AVERAGE 4.97 4.44 2X AVERAGE 9.55 7.05 3X AVERAGE 23.99 11.04 Performed By: #### L IP2, CMPF #### Testing performed at [address] [address] Triglyceride [Mass/Vol] 74 mg/dL Normal <150 [facility] Comment on above: Performed By: #### L IP2, CMPF #### Testing performed at [address] [address] CBCon 03-06-2019 ABSOLUTE BAS 0.0 10*3/uL Normal 0.0-0.2 [facility] Comment on above: Performed By: #### T SH2, T42, LIP2, ACBC, CMPF #### Testing performed at [address] [address] ABSOLUTE EOS 0.10 10*3/uL Normal 0.0-0.7 [facility] Comment on above: Performed By: #### T SH2, T42, LIP2, ACBC, CMPF #### Testing performed at [address] [address] ABSOLUTE NEUTROPHIL COUNT 6.4 10*3/uL Normal 1.4-6.5 [facility] Comment on above: Performed By: #### T SH2, T42, LIP2, ACBC, CMPF #### Testing performed at [address] [address] Basophils/100 WBC (Bld) 0.5 % Normal 0.0-2.0 [facility] Comment on above: Performed By: #### T SH2, T42, LIP2, ACBC, CMPF #### Testing performed at [address] [address] DTYPE AUTO DIFF Normal [facility] Comment on above: Performed By: #### T SH2, T42, LIP2, ACBC, CMPF #### Testing performed at [address] [address] Eosinophils/100 WBC (Bld) 0.8 % Normal 0.0-11.0 [facility] Comment on above: Performed By: #### T SH2, T42, LIP2, ACBC, CMPF #### Testing performed at [address] [address] Lymphocytes (Bld) [#/Vol] 1.20 10*3/uL Normal 1.2-3.4 [facility] Comment on above: Performed By: #### T SH2, T42, LIP2, ACBC, CMPF #### Testing performed at [address] [address] Lymphocytes/100 WBC (Bld) 14.0 % Low 20.0-55.0 [facility] Comment on above: Performed By: #### T SH2, T42, LIP2, ACBC, CMPF #### Testing performed at [address] [address] Monocytes (Bld) [#/Vol] 1.0 10*3/uL High 0.0-0.7 [facility] Comment on above: Performed By: #### T SH2, T42, LIP2, ACBC, CMPF #### Testing performed at [address] [address] Monocytes/100 WBC (Bld) 11.4 % High 0.0-10.0 [facility] Comment on above: Performed By: #### T SH2, T42, LIP2, ACBC, CMPF #### Testing performed at [address] [address] Neutrophils/100 WBC (Bld) 73.3 % Normal 37.0-75.0 [facility] Comment on above: Performed By: #### T SH2, T42, LIP2, ACBC, CMPF #### Testing performed at [address] [address] Erythrocyte distribution width (RBC) [Ratio] 14.1 % Normal 11.5-14.5 [facility] Comment on above: Performed By: #### T SH2, T42, LIP2, ACBC, CMPF #### Testing performed at [address] [address] Hematocrit (Bld) [Volume fraction] 35.4 % Low 36.0-48.0 [facility] Comment on above: Performed By: #### T SH2, T42, LIP2, ACBC, CMPF #### Testing performed at [address] [address] Hemoglobin (Bld) [Mass/Vol] 11.9 g/dL Low 12.0-16.0 [facility] Comment on above: Performed By: #### T SH2, T42, LIP2, ACBC, CMPF #### Testing performed at [address] [address] MCH (RBC) [Entitic mass] 29.0 pg Normal 26.0-35.0 [facility] Comment on above: Performed By: #### T SH2, T42, LIP2, ACBC, CMPF #### Testing performed at [address] [address] MCHC (RBC) [Mass/Vol] 33.7 g/dL Normal 27.0-37.0 [facility] Comment on above: Performed By: #### T SH2, T42, LIP2, ACBC, CMPF #### Testing performed at [address] [address] MCV (RBC) [Entitic vol] 86.1 fL Normal 80.0-100.0 [facility] Comment on above: Performed By: #### T SH2, T42, LIP2, ACBC, CMPF #### Testing performed at [address] [address] Platelet mean volume (Bld) [Entitic vol] 7.8 fL Normal 7.4-11.0 [facility] Comment on above: Performed By: #### T SH2, T42, LIP2, ACBC, CMPF #### Testing performed at [address] [address] Platelets (Bld) [#/Vol] 291 10*3/uL Normal 130.0-400.0 [facility] Comment on above: Performed By: #### T SH2, T42, LIP2, ACBC, CMPF #### Testing performed at [address] [address] RBC (Bld) [#/Vol] 4.12 10*6/uL Normal 4.0-5.4 [facility] Comment on above: Performed By: #### T SH2, T42, LIP2, ACBC, CMPF #### Testing performed at [address] [address] WBC (Bld) [#/Vol] 8.7 10*3/uL Normal 3.6-11.0 [facility] Comment on above: Performed By: #### T SH2, T42, LIP2, ACBC, CMPF #### Testing performed at [address] [address] CMP FASTINGon 03-06-2019 A:G RATIO 1.2 RATIO Low 1.3-2.2 [facility] Comment on above: Performed By: #### T SH2, T42, LIP2, ACBC, CMPF #### Testing performed at [address] [address] Albumin [Mass/Vol] 4.4 G/dl Normal 3.5-5.0 [facility] Comment on above: Performed By: #### T SH2, T42, LIP2, ACBC, CMPF #### Testing performed at [address] [address] ALP [Catalytic activity/Vol] 57 U/L Normal 38-126 [facility] Comment on above: Performed By: #### T SH2, T42, LIP2, ACBC, CMPF #### Testing performed at [address] [address] ALT [Catalytic activity/Vol] 15 U/L Normal 14-54 [facility] Comment on above: Performed By: #### T SH2, T42, LIP2, ACBC, CMPF #### Testing performed at [address] [address] AST [Catalytic activity/Vol] 23 U/L Normal 15-41 [facility] Comment on above: Performed By: #### T SH2, T42, LIP2, ACBC, CMPF #### Testing performed at [address] [address] Bilirubin [Mass/Vol] 0.6 mg/dL Normal 0.2-1.2 [facility] Comment on above: Performed By: #### T SH2, T42, LIP2, ACBC, CMPF #### Testing performed at [place] [address] Creatinine [Mass/Vol] 0.63 mg/dL Normal 0.52-1.04 [facility] Comment on above: Performed By: #### T SH2, T42, LIP2, ACBC, CMPF #### [place] [address] EST. GFR, >60 Normal [facility] Comment on above: Performed By: #### T SH2, T42, LIP2, ACBC, CMPF #### [place] [address] EST. GFR,Non >60 Normal [facility] Comment on above: Performed By: #### T SH2, T42, LIP2, ACBC, CMPF #### [place] [address] GFR/1.73 sq M predicted among non-blacks MDRD (S/P/Bld) [Vol rate/Area] Average GFR for 70+ years old = 75. Normal [facility] Comment on above: Result Comment: [employer] [place] Kidney disease, GFR = <60. Kidney failure, GFR = <15. The GFR estimate is not adjusted for extreme body surface area or acute process, nor has it been validated for women or ethnic groups other than and . Performed By: #### T SH2, T42, LIP2, ACBC, CMPF #### Testing performed at [address] [address] Protein [Mass/Vol] 8.1 g/dL Normal 6.3-8.2 [facility] Comment on above: Performed By: #### T SH2, T42, LIP2, ACBC, CMPF #### Testing performed at [address] [place] [address] Urea nitrogen [Mass/Vol] 16 mg/dL Normal 7-20 [facility] Comment on above: Performed By: #### T SH2, T42, LIP2, ACBC, CMPF #### Testing performed at [address] [address] Calcium [Mass/Vol] 9.7 mg/dL Normal 8.4-10.2 [facility] Comment on above: Performed By: #### T SH2, T42, LIP2, ACBC, CMPF #### Testing performed at [address] [address] Chloride [Moles/Vol] 94 mmol/L Low 98-107 [facility] Comment on above: Performed By: #### T SH2, T42, LIP2, ACBC, CMPF #### Testing performed at [address] [address] CO2 [Moles/Vol] 22 mmol/L Normal 22-[address] [facility] Comment on above: Performed By: #### T SH2, T42, LIP2, ACBC, CMPF #### Testing performed at [address] [address] Glucose [Mass/Vol] 85 mg/dL Normal 70-100 [facility] Comment on above: Result Comment: NORMAL <100 mg/dL PREDIABETES 101-126 mg/dL DIABETES 126 mg/dL or higher Performed By: #### T SH2, T42, LIP2, ACBC, CMPF #### Testing performed at [address] [address] Potassium [Moles/Vol] 4.4 mmol/L Normal 3.5-5.1 [facility] Comment on above: Performed By: #### T SH2, T42, LIP2, ACBC, CMPF #### Testing performed at [address] [address] Sodium [Moles/Vol] 129 mmol/L Low 136-145 [facility] Comment on above: Performed By: #### T SH2, T42, LIP2, ACBC, CMPF #### Testing performed at [address] [address] FREE T4on 09-03-2019 Free T4 [Mass/Vol] 0.73 ng/dL Normal 0.61-1.12 [facility] Comment on above: Performed By: #### T SH2, T42, LIP2, ACBC, CMPF #### Testing performed at [address] [address] LIPID PROFILEon 03-06-2019 Cholesterol [Mass/Vol] 163 mg/dL Normal 100-199 [facility] Comment on above: Performed By: #### T SH2, T42, LIP2, ACBC, CMPF #### Testing performed at [address] [address] Cholesterol in HDL [Mass/Vol] 66 mg/dL High 40-60 [facility] Comment on above: Performed By: #### T SH2, T42, LIP2, ACBC, CMPF #### Testing performed at [address] [address] Cholesterol in LDL [Mass/Vol] 82 mg/dL Normal 0-100 [facility] Comment on above: Performed By: #### T SH2, T42, LIP2, ACBC, CMPF #### Testing performed at [address] [address] Cholesterol in VLDL [Mass/Vol] 15 mg/dL Normal 5.0-25.0 [facility] Comment on above: Performed By: #### T SH2, T42, LIP2, ACBC, CMPF #### Testing performed at [address] [address] Cholesterol.total/Chol esterol in HDL [Mass ratio] 2.47 {ratio} Normal [facility] Comment on above: Result Comment: RISK TOTAL/HDL RATIO MEN WOMEN 1/2 AVERAGE 3.43 3.27 AVERAGE 4.97 4.44 2X AVERAGE 9.55 7.05 3X AVERAGE 23.99 11.04 Performed By: #### T SH2, T42, LIP2, ACBC, CMPF #### Testing performed at [address] [address] Triglyceride [Mass/Vol] 75 mg/dL Normal <150 [facility] Comment on above: Performed By: #### T SH2, T42, LIP2, ACBC, CMPF #### Testing performed at [address] [address] TSHon 03-06-2019 TSH Qn 5.153 uIU/ML Normal 0.45-5.33 [facility] Comment on above: Performed By: #### T SH2, T42, LIP2, ACBC, CMPF #### Testing performed at [address] [address] UPPER ENDOSCOPYon 12-22-2018 [facility] Patient Name: Ben Arroyo Procedure Date: 12/22/2018 9:23 AM Date of : 1945 Admit Type: Outpatient Age: 73 Room: Procedure Room #1 Gender: Female Note Status: Finalized Attending MD: Dagoberto Gilbert DO Instrument Name: [id number] Procedure: Upper GI endoscopy Indications: Heartburn Providers: Dagoberto Gilbert DO Referring MD: Diana Thomason MD Complications: No immediate complications. Procedure: After obtaining informed consent, the endoscope was passed under direct vision. Throughout the procedure, the patient's blood pressure, pulse, and oxygen saturations were monitored continuously. CO2 was used. The Endoscope was introduced through the mouth, and advanced to the second part of duodenum. The upper GI endoscopy was accomplished without difficulty. The patient tolerated the procedure well. Findings: Localized minimal inflammation characterized by erosions and erythema was found on the greater curvature of the stomach. A small hiatal hernia was present. Impression: - Gastritis. - Small hiatal hernia. - No specimens collected. Recommendation: - I do not see any obvious reflux esophagitis, or ulcerations of the stomach. Very small HH although doubtful to cause her RUQ pain and food intolerance. She has a cardiac history and symptoms reproducible with a HIDA scan. Will discuss with cardiology - obtain cardiac clearance and if the patient is agreeable proceed with a lap cholecystectomy Procedure Code(s): --- Professional --- 75601, Esophagogastroduodeno scopy, flexible, transoral; diagnostic, including collection of specimen(s) by brushing or washing, when performed (separate procedure) Diagnosis Code(s): --- Professional --- K29.70, Gastritis, unspecified, without bleeding K44.9, Diaphragmatic hernia without obstruction or gangrene R12, Heartburn CPT copyright 2018 [employer]. All rights reserved. The codes documented in this report are preliminary and upon small engine trainer review may be revised to meet current compliance requirements. Dagoberto Gilbert DO Dagoberto Schuler [place] 12/22/2018 9:53:44 AM This report has been signed electronically. Number of Addenda: 0 Note Initiated On: 12/22/2018 9:23 AM [employer] BONE DENSITY AXIAL (HIP, PEL VIS, SPINE)on 09-21-2018 IMPRESSION: Findings compatible with severe osteopenia with moderate to high increased fracture risk. [employer] EXAM: BONE DENSITY AXIAL (HIP, PELVIS, SPINE) CLINICAL DATA: postmenopausal COMPARISON: 04/21/2015. FINDINGS: Bone density study was performed. T score values for lumbar spine and both femoral necks were obtained. Value for the lumbar spine is -2.1, that for the left femoral neck is -2.0. Findings are compatible with severe osteopenia with moderate to high increased fracture risk. No evidence of osteoporosis. [employer] User, Interfaces - 09/21/2018 11:17 AM EDT EXAM: BONE DENSITY AXIAL (HIP, PELVIS, SPINE) CLINICAL DATA: postmenopausal COMPARISON: 04/21/2015. FINDINGS: Bone density study was performed. T score values for lumbar spine and both femoral necks were obtained. Value for the lumbar spine is -2.1, that for the left femoral neck is -2.0. Findings are compatible with severe osteopenia with moderate to high increased fracture risk. No evidence of osteoporosis. IMPRESSION IMPRESSION: Findings compatible with severe osteopenia with moderate to high increased fracture risk. [facility] CBC and Differentialon 03-07 Basophils Auto #/vol (Bld) 0.0 10*3/uL Invalid Interpretation Code [facility] Basophils/100 WBC Auto (Bld) 0.5 % Invalid Interpretation Code [facility] Eosinophils Auto #/vol (Bld) 0.1 10*3/uL Invalid Interpretation Code [facility] Eosinophils/100 WBC Auto (Bld) 1.0 % Invalid Interpretation Code [facility] Erythrocyte distribution width Auto Ratio (RBC) 13.1 % Invalid Interpretation Code 10 - 14.4 % [facility] Hematocrit Auto Volume Fraction (Bld) 36.3 % Invalid Interpretation Code 34.4 - 44.8 % [facility] Hemoglobin mass conc (Bld) 12.4 g/dL Invalid Interpretation Code 11.6 - 15.4 g/dL [facility] Interpretation and review of laboratory results Abnormal Invalid Interpretation Code [facility] Lymphocytes Auto #/vol (Bld) 1.6 10*3/uL Invalid Interpretation Code [facility] Lymphocytes/100 WBC Auto (Bld) 16.2 % Invalid Interpretation Code [facility] MCH Auto Entitic mass (RBC) 29.5 pg Invalid Interpretation Code 27.9 - 33.9 pg [facility] MCHC Auto mass conc (RBC) 34.1 g/dL Invalid Interpretation Code 33.1 - 35.1 g/dL [facility] MCV Auto Entitic volume (RBC) 86.6 fL Invalid Interpretation Code [facility] Monocytes Auto #/vol (Bld) 1.3 10*3/uL High [facility] Monocytes/100 WBC Auto (Bld) 13.3 % Invalid Interpretation Code [facility] Neutrophils Auto #/vol (Bld) 6.7 10*3/uL Invalid Interpretation Code [facility] Platelet mean volume Auto Entitic volume (Bld) 8.9 fL Invalid Interpretation Code [facility] Platelets Auto #/vol (Bld) 298 10*3/uL Invalid Interpretation Code [facility] RBC Auto #/vol (Bld) 4.19 10*6/uL Invalid Interpretation Code [facility] Segmented Neut 69.0 % Invalid Interpretation Code [facility] WBC Auto #/vol (Bld) 9.7 10*3/uL Invalid Interpretation Code [facility] CBC with Diffon 03-07-2018 Basophils Auto #/vol (Bld) 0.0 K/mcL Normal 0-0.[address] [facility] Comment on above: Performed By: #### C BCDIF, CMET, LIPID ####Unless otherwise noted, all testing performed by [address], [place] [id number]: [id number] Director: Delano Chacon M.D. Basophils/100 WBC Auto (Bld) 0.5 % Normal [facility] Comment on above: Performed By: #### C BCDIF, CMET, LIPID ####Unless otherwise noted, all testing performed by [address] [id number]: [id number] Director: Delano Chacon M.D. Eosinophils Auto #/vol (Bld) 0.1 K/mcL Normal 0-0.[address] [facility] Comment on above: Performed By: #### C BCDIF, CMET, LIPID ####Unless otherwise noted, all testing performed by [place] [id number]: [id number] Director: Delano Chacon M.D. Eosinophils/100 WBC Auto (Bld) 1.0 % Normal [facility] Comment on above: Performed By: #### C BCDIF, CMET, LIPID ####Unless otherwise noted, all testing performed by [place] [id number]: [id number] Director: Delano Chacon M.D. Erythrocyte distribution width Auto Ratio (RBC) 13.1 % Normal 10.0-14.[address] [facility] Comment on above: Performed By: #### C BCDIF, CMET, LIPID ####Unless otherwise noted, all testing performed by [address]CLIA: [id number] Director: Delano Chacon M.D. Hematocrit Auto Volume Fraction (Bld) 36.3 % Normal 34.4-44.[address] [facility] Comment on above: Performed By: #### C BCDIF, CMET, LIPID ####Unless otherwise noted, all testing performed by [address] [phone]: [id number] Director: Delano Chacon M.D. Hemoglobin mass conc (Bld) 12.4 g/dL Normal 11.6-15.[address] [facility] Comment on above: Performed By: #### C BCDIF, CMET, LIPID ####Unless otherwise noted, all testing performed by [address] [phone]: [id number] Director: Delano Chacon M.D. Lymphocytes Auto #/vol (Bld) 1.6 K/mcL Normal 1.0-3.[address] [facility] Comment on above: Performed By: #### C BCDIF, CMET, LIPID ####Unless otherwise noted, all testing performed by [address] [phone]: [id number] Director: Delano Chacon M.D. Lymphocytes/100 WBC Auto (Bld) 16.2 % Normal [facility] Comment on above: Performed By: #### C BCDIF, CMET, LIPID ####Unless otherwise noted, all testing performed by [address] [phone]: [id number] Director: Delano Chacon M.D. MCH Auto Entitic mass (RBC) 29.5 pg Normal 27.9-33.[address] [facility] Comment on above: Performed By: #### C BCDIF, CMET, LIPID ####Unless otherwise noted, all testing performed by [address], [place] [phone]: [id number] Director: Delano Chacon M.D. MCHC Auto mass conc (RBC) 34.1 g/dL Normal 33.1-35.[address] [facility] Comment on above: Performed By: #### C BCDIF, CMET, LIPID ####Unless otherwise noted, all testing performed by [address] [phone]: [id number] Director: Delano Chacon M.D. MCV Auto Entitic volume (RBC) 86.6 fL Normal 82.6-98.[address] [facility] Comment on above: Performed By: #### C BCDIF, CMET, LIPID ####Unless otherwise noted, all testing performed by [place] [phone]: [id number] Director: Delano Chacon M.D. Monocytes Auto #/vol (Bld) 1.3 K/mcL High 0.1-0.[address] [facility] Comment on above: Performed By: #### C BCDIF, CMET, LIPID ####Unless otherwise noted, all testing performed by [address] [phone]: [id number] Director: Delano Chacon M.D. Monocytes/100 WBC Auto (Bld) 13.3 % Normal [facility] Comment on above: Performed By: #### C BCDIF, CMET, LIPID ####Unless otherwise noted, all testing performed by [address] [phone]: [id number] Director: Delano Chacon M.D. Neutrophils Auto #/vol (Bld) 6.7 K/mcL Normal 1.2-6.[address] [facility] Comment on above: Performed By: #### C BCDIF, CMET, LIPID ####Unless otherwise noted, all testing performed by [address] [phone]: [id number] Director: Delano Chacon M.D. Platelet mean volume Auto Entitic volume (Bld) 8.9 fL Normal 7.0-10.[address] [facility] Comment on above: Performed By: #### C BCDIF, CMET, LIPID ####Unless otherwise noted, all testing performed by [address] [phone]: [id number] Director: Delano Chacon M.D. Platelets Auto #/vol (Bld) 298 K/mcL Normal 162-[address] [facility] Comment on above: Performed By: #### C BCDIF, CMET, LIPID ####Unless otherwise noted, all testing performed by [address] [phone]: [id number] Director: Delano Chacon M.D. RBC Auto #/vol (Bld) 4.19 M/mcL Normal 3.7-5.0 [facility] Comment on above: Performed By: #### C BCDIF, CMET, LIPID ####Unless otherwise noted, all testing performed by [address] [phone]: [id number] Director: Delano Chacon M.D. Segmented Neut % 69.0 % Normal [facility] Comment on above: Performed By: #### C BCDIF, CMET, LIPID ####Unless otherwise noted, all testing performed by [address] [phone]: [id number] Director: Delano Chacon M.D. WBC Auto #/vol (Bld) 9.7 K/mcL Normal 3.4-10.6 [facility] Comment on above: Performed By: #### C BCDIF, CMET, LIPID ####Unless otherwise noted, all testing performed by [address] [phone]: [id number] Director: Delano Chacon M.D. [facility] 03-07-2018 Albumin mass conc 3.9 g/dL Invalid Interpretation Code 3.2 - 5.2 g/dL [facility] ALP enzyme act/vol 62 U/L Invalid Interpretation Code 40 - 150 U/L [facility] ALT enzyme act/vol 30 U/L Invalid Interpretation Code 14 - 65 U/L [facility] Comment on above: This test result windy ht be falsely depressed or falsely elevated on samples drawn from patients taking Sulfasalazine and Sulfapyridine. Venipuncture should occur prior to taking either of these drugs. AST enzyme act/vol 38 U/L Invalid Interpretation Code 0 - 45 U/L [facility] Comment on above: This test result windy ht be falsely depressed or falsely elevated on samples drawn from patients taking Sulfasalazine and Sulfapyridine. Venipuncture should occur prior to taking either of these drugs. Bilirubin mass conc 0.6 mg/dL Invalid Interpretation Code 0.3 - 1.2 mg/dL [facility] Calcium mass conc 8.9 mg/dL Invalid Interpretation Code 8.4 - 10.2 mg/dL [facility] Chloride molar conc 93 mmol/L Low 98 - 108 mmol/L [facility] CO2 molar conc 21 mmol/L Invalid Interpretation Code 21 - 32 mmol/L [facility] Creatinine mass conc 0.78 mg/dL Invalid Interpretation Code 0.6 - 1.2 mg/dL [facility] GFR/1.73 sq M predicted among blacks MDRD vol rate/area (S/P/Bld) mL/min/{1.73_m2} Invalid Interpretation Code ml/min/1.73s q.m [facility] Comment on above: GFR Calc GFR/1.73 sq M predicted among non-blacks MDRD vol rate/area (S/P/Bld) mL/min/{1.73_m2} Invalid Interpretation Code ml/min/1.73s q.m [facility] Comment on above: Non- GFR Calc eGFR is an estimated Glomerular Filtration Rate based on the value of the patient's serum creatinine. In outpatients, eGFR should be used as a helpful tool in screening for CKD. In inpatients or patients with acute renal failure, eGFR represents the GFR at the moment of the draw and should be used with caution. Glucose mass conc 84 mg/dL Invalid Interpretation Code 70 - 99 mg/dL [facility] Comment on above: This test result windy ht be falsely depressed or falsely elevated on samples drawn from patients taking Sulfasalazine and Sulfapyridine. Venipuncture should occur prior to taking either of these drugs. Potassium molar conc 4.9 mmol/L Invalid Interpretation Code 3.5 - 5.1 mmol/L [facility] Protein mass conc 7.9 g/dL Invalid Interpretation Code 6 - 8 g/dL [facility] Sodium molar conc 126 mmol/L Low 135 - 145 mmol/L [facility] Urea nitrogen mass conc 17 mg/dL Invalid Interpretation Code 8 - 25 mg/dL [facility] Albumin mass conc 3.9 g/dL Normal 3.2-5.2 [facility] Comment on above: Performed By: #### C BCDIF, CMET, LIPID ####Unless otherwise noted, all testing performed by [facility] [place], [place] [phone]: [id number] Director: Delano Chacon M.D. ALP enzyme act/vol 62 U/L Normal 40-150 [facility] Comment on above: Performed By: #### C BCDIF, CMET, LIPID ####Unless otherwise noted, all testing performed by [address] [phone]: [id number] Director: Delano Chacon M.D. ALT enzyme act/vol 30 U/L Normal 14-65 [facility] Comment on above: Result Comment: This test result might be falsely depressed or falsely elevated onsamples drawn from patients taking Sulfasalazine and Sulfapyridine.Venipuncture should occur prior to taking either of these drugs. Performed By: #### C BCDIF, CMET, LIPID ####Unless otherwise noted, all testing performed by [address] [phone]: [id number] Director: Delano Chacon M.D. AST enzyme act/vol 38 U/L Normal 0-45 [facility] Comment on above: Result Comment: This test result might be falsely depressed or falsely elevated onsamples drawn from patients taking Sulfasalazine and Sulfapyridine.Venipuncture should occur prior to taking either of these drugs. Performed By: #### C BCDIF, CMET, LIPID ####Unless otherwise noted, all testing performed by [address] [phone]: [id number] Director: Delano Chacon M.D. Bilirubin mass conc 0.6 mg/dL Normal 0.3-1.2 [facility] Comment on above: Performed By: #### C BCDIF, CMET, LIPID ####Unless otherwise noted, all testing performed by [address] [phone]: [id number] Director: Delano Chacon M.D. Calcium mass conc 8.9 mg/dL Normal 8.4-10.2 [facility] Comment on above: Performed By: #### C BCDIF, CMET, LIPID ####Unless otherwise noted, all testing performed by [address] [phone]: [id number] Director: Delano Chacon M.D. Chloride molar conc 93 mmol/L Low 98-108 [facility] Comment on above: Performed By: #### C BCDIF, CMET, LIPID ####Unless otherwise noted, all testing performed by [address] [phone]: [id number] Director: Delano Chacon M.D. CO2 molar conc 21 mmol/L Normal 21-[address] [facility] Comment on above: Performed By: #### C BCDIF, CMET, LIPID ####Unless otherwise noted, all testing performed by [address] [phone]: [id number] Director: Delano Chacon M.D. Creatinine mass conc 0.78 mg/dL Normal 0.60-1.20 [facility] Comment on above: Performed By: #### C BCDIF, CMET, LIPID ####Unless otherwise noted, all testing performed by [address] [phone]: [id number] Director: Delano Chacon M.D. GFR/1.73 sq M predicted among blacks MDRD vol rate/area (S/P/Bld) mL/min/{1.73_m2} Normal [facility] Comment on above: Result Comment: Afri can Slovak GFR Calc Performed By: #### C BCDIF, CMET, LIPID ####Unless otherwise noted, all testing performed by [address] [phone]: [id number] Director: Delano Chacon M.D. GFR/1.73 sq M predicted among non-blacks MDRD vol rate/area (S/P/Bld) mL/min/{1.73_m2} Normal [facility] Comment on above: Result Comment: Non- GFR CalceGFR is an estimated Glomerular Filtration Rate based on the valueof the patient's serum creatinine. In outpatients, eGFR should be usedas a helpful tool in screening for CKD. In inpatients or patients withacute renal failure, eGFR represents the GFR at the moment of the drawand should be used with caution. Performed By: #### C BCDIF, CMET, LIPID ####Unless otherwise noted, all testing performed by [address] [phone]: [id number] Director: Delano Chacon M.D. Glucose mass conc 84 mg/dL Normal 70-99 [facility] Comment on above: Result Comment: This test result might be falsely depressed or falsely elevated onsamples drawn from patients taking Sulfasalazine and Sulfapyridine.Venipuncture should occur prior to taking either of these drugs. Performed By: #### C BCDIF, CMET, LIPID ####Unless otherwise noted, all testing performed by [address] [phone]: [id number] Director: Delano Chacon M.D. Potassium molar conc 4.9 mmol/L Normal 3.5-5.1 [facility] Comment on above: Performed By: #### C BCDIF, CMET, LIPID ####Unless otherwise noted, all testing performed by [address] [phone]: [id number] Director: Delano Chacon M.D. Protein mass conc 7.9 g/dL Normal 6.0-8.0 [facility] Comment on above: Performed By: #### C BCDIF, CMET, LIPID ####Unless otherwise noted, all testing performed by [address] [phone]: [id number] Director: Delaon Chacon M.D. Sodium molar conc 126 mmol/L Low 135-145 [facility] Comment on above: Performed By: #### C BCDIF, CMET, LIPID ####Unless otherwise noted, all testing performed by [address] [phone]: [id number] Director: Delano Chacon M.D. Urea nitrogen mass conc 17 mg/dL Normal 8-[address] [facility] Comment on above: Performed By: #### C BCDIF, CMET, LIPID ####Unless otherwise noted, all testing performed by [address] [phone]: [id number] Director: Delano Chacon M.D. Lipid Panelon 03-07-2018 Cholesterol in HDL mass conc 73 mg/dL High 40 - 59 mg/dL [facility] Cholesterol in LDL mass conc 65 mg/dL Invalid Interpretation Code 10 - 150 mg/dL [facility] Cholesterol in VLDL mass conc 19 mg/dL Invalid Interpretation Code 5 - 40 mg/dL [facility] Cholesterol mass conc 157 mg/dL Invalid Interpretation Code 100 - 199 mg/dL [facility] Cholesterol.total/Chol esterol in HDL mass ratio 2.2 {ratio} Low [facility] Comment on above: Female Coronary Hear t Disease Risk Factor (CHDRF): Average risk= 4.4 1/2 Average risk= 3.3 2 times Average risk= 7.1 Triglyceride mass conc 95 mg/dL Invalid Interpretation Code 25 - 120 mg/dL [facility] Cholesterol in HDL mass conc 73 mg/dL High 40-[address] [facility] Comment on above: Performed By: #### C BCDIF, CMET, LIPID ####Unless otherwise noted, all testing performed by [address] [phone]: [id number] Director: Delano Chacon M.D. Cholesterol in LDL mass conc 65 mg/dL Normal 10-[address] [facility] Comment on above: Performed By: #### C BCDIF, CMET, LIPID ####Unless otherwise noted, all testing performed by [address] [phone]: [id number] Director: Delano Chacon M.D. Cholesterol in VLDL mass conc 19 mg/dL Normal 5-[address] [facility] Comment on above: Performed By: #### C BCDIF, CMET, LIPID ####Unless otherwise noted, all testing performed by [address] [phone]: [id number] Director: Delano Cahcon M.D. Cholesterol mass conc 157 mg/dL Normal 100-199 [facility] Comment on above: Performed By: #### C BCDIF, CMET, LIPID ####Unless otherwise noted, all testing performed by [address], [place] [phone]: [id number] Director: Delano Chacon M.D. Cholesterol.total/Chol esterol in HDL mass ratio 2.2 {ratio} Low 3.2-5.[address] [facility] Comment on above: Result Comment: Fema le Coronary Heart Disease Risk Factor (CHDRF):Average risk= 4.41/2 Average risk= 3.32 times Average risk= 7.1 Performed By: #### C BCDIF, CMET, LIPID ####Unless otherwise noted, all testing performed by [address] [phone]: [id number] Director: Delano Chacon M.D. Triglyceride mass conc 95 mg/dL Normal 25-120 [facility] Comment on above: Performed By: #### C BCDIF, CMET, LIPID ####Unless otherwise noted, all testing performed by [address] [phone]: [id number] Director: Delano Chacon M.D. Otheron 03-07-2018 Interpretation and review of laboratory results Abnormal Invalid Interpretation Code [facility] ALT (SGPT)on 09-13-2017 ALT enzyme act/vol 27 U/L Normal 14-65 [facility] Comment on above: Result Comment: This test result might be falsely depressed or falsely elevated onsamples drawn from patients taking Sulfasalazine and Sulfapyridine.Venipuncture should occur prior to taking either of these drugs. Performed By: #### A LT, AST, FT4, TSH, LIPID ####Unless otherwise noted, all testing performed by [address] [phone]: [id number] Director: Delano Chacon M.D. AST (SGOT)on 09-13-2017 AST enzyme act/vol 28 U/L Normal 0-45 [facility] Comment on above: Result Comment: This test result might be falsely depressed or falsely elevated onsamples drawn from patients taking Sulfasalazine and Sulfapyridine.Venipuncture should occur prior to taking either of these drugs. Performed By: #### A LT, AST, FT4, TSH, LIPID ####Unless otherwise noted, all testing performed by [address] [phone]: [id number] Director: Delano Chacon M.D. Lipid Panelon 09-13-2017 Cholesterol in HDL mass conc 73 mg/dL High 40-[address] [facility] Comment on above: Performed By: #### A LT, AST, FT4, TSH, LIPID ####Unless otherwise noted, all testing performed by [address] [phone]: [id number] Director: Delano Chacon M.D. Cholesterol in LDL mass conc 58 mg/dL Normal 10-[address] [facility] Comment on above: Performed By: #### A LT, AST, FT4, TSH, LIPID ####Unless otherwise noted, all testing performed by [address] [phone]: [id number] Director: Delano Chacon M.D. Cholesterol in VLDL mass conc 13 mg/dL Normal 5-[address] [facility] Comment on above: Performed By: #### A LT, AST, FT4, TSH, LIPID ####Unless otherwise noted, all testing performed by [address] [phone]: [id number] Director: Delano Chacon M.D. Cholesterol mass conc 144 mg/dL Normal 100-199 [facility] Comment on above: Performed By: #### A LT, AST, FT4, TSH, LIPID ####Unless otherwise noted, all testing performed by [address] [phone]: [id number] Director: Delano Chacon M.D. Cholesterol.total/Chol esterol in HDL mass ratio 2.0 {ratio} Low 3.2-5.[address] [facility] Comment on above: Result Comment: Danae le Coronary Heart Disease Risk Factor (CHDRF):Average risk= 4.41/2 Average risk= 3.32 times Average risk= 7.1 Performed By: #### A LT, AST, FT4, TSH, LIPID ####Unless otherwise noted, all testing performed by [address] [phone]: [id number] Director: Delano Chacon M.D. Triglyceride mass conc 64 mg/dL Normal 25-120 [facility] Comment on above: Performed By: #### A LT, AST, FT4, TSH, LIPID ####Unless otherwise noted, all testing performed by [address] [phone]: [id number] Director: Delano Chacon M.D. T4, Freeon 09-13-2017 T4 free mass conc 1.0 ng/dL Normal 0.7-1.7 [facility] Comment on above: Result Comment: Samp les from patients routinely receiving high dose biotin therapy(100-300 mg/day) may show falsely decreased results. Please correlateclinically. Performed By: #### A LT, AST, FT4, TSH, LIPID ####Unless otherwise noted, all testing performed by [address] [phone]: [id number] Director: Delano Chacon M.D. TSHon 09-13-2017 Thyrotropin Qn 5.67 uIU/mL High 0.320-5.000 [facility] Comment on above: Result Comment: Samp les from patients routinely receiving high dose biotin therapy(100-300 mg/day) may show falsely decreased results. Please correlateclinically. Performed By: #### A LT, AST, FT4, TSH, LIPID ####Unless otherwise noted, all testing performed by [address] [phone]: [id number] Director: Delano Chacon M.D. CBC with Diffon 03-21-2017 Basophils Auto #/vol (Bld) 0.0 K/mcL Normal 0-0.[address] [facility] Comment on above: Performed By: #### C BCDIF, CMET, LIPID ####Unless otherwise noted, all testing performed by [address] [phone]: [id number] Director: Delano Chacon M.D. Basophils/100 WBC Auto (Bld) 0.6 % Normal [facility] Comment on above: Performed By: #### C BCDIF, CMET, LIPID ####Unless otherwise noted, all testing performed by [address] [phone]: [id number] Director: Delano Chacon M.D. Eosinophils Auto #/vol (Bld) 0.0 K/mcL Normal 0-0.[address] [facility] Comment on above: Performed By: #### C BCDIF, CMET, LIPID ####Unless otherwise noted, all testing performed by [address] [phone]: [id number] Director: Delano Chacon M.D. Eosinophils/100 WBC Auto (Bld) 0.6 % Normal [facility] Comment on above: Performed By: #### C BCDIF, CMET, LIPID ####Unless otherwise noted, all testing performed by [address] [phone]: [id number] Director: Delano Chacon M.D. Erythrocyte distribution width Auto Ratio (RBC) 13.6 % Normal 10.0-14.[address] [facility] Comment on above: Performed By: #### C BCDIF, CMET, LIPID ####Unless otherwise noted, all testing performed by [address] [phone]: [id number] Director: Delano Chacon M.D. Hematocrit Auto Volume Fraction (Bld) 37.4 % Normal 34.4-44.[address] [facility] Comment on above: Performed By: #### C BCDIF, CMET, LIPID ####Unless otherwise noted, all testing performed by [address] [phone]: [id number] Director: Delano Chacon M.D. Hemoglobin mass conc (Bld) 12.5 g/dL Normal 11.6-15.[address] [facility] Comment on above: Performed By: #### C BCDIF, CMET, LIPID ####Unless otherwise noted, all testing performed by [address], [place] [phone]: [id number] Director: Delano Chacon M.D. Lymphocytes Auto #/vol (Bld) 1.3 K/mcL Normal 1.0-3.[address] [facility] Comment on above: Performed By: #### C BCDIF, CMET, LIPID ####Unless otherwise noted, all testing performed by [address] [phone]: [id number] Director: Delano Chacon M.D. Lymphocytes/100 WBC Auto (Bld) 16.5 % Normal [facility] Comment on above: Performed By: #### C BCDIF, CMET, LIPID ####Unless otherwise noted, all testing performed by [address] [phone]: [id number] Director: Delano Chacon M.D. MCH Auto Entitic mass (RBC) 29.7 pg Normal 27.9-33.[address] [facility] Comment on above: Performed By: #### C BCDIF, CMET, LIPID ####Unless otherwise noted, all testing performed by [address] [phone]: [id number] Director: Delano Chacon M.D. MCHC Auto mass conc (RBC) 33.3 g/dL Normal 33.1-35.[address] [facility] Comment on above: Performed By: #### C BCDIF, CMET, LIPID ####Unless otherwise noted, all testing performed by [address] [phone]: [id number] Director: Delano Chacon M.D. MCV Auto Entitic volume (RBC) 89.0 fL Normal 82.6-98.[address] [facility] Comment on above: Performed By: #### C BCDIF, CMET, LIPID ####Unless otherwise noted, all testing performed by [place] [phone]: [id number] Director: Delano Chacon M.D. Monocytes Auto #/vol (Bld) 0.9 K/mcL High 0.1-0.[address] [facility] Comment on above: Performed By: #### C BCDIF, CMET, LIPID ####Unless otherwise noted, all testing performed by [address]8509CLIA: [id number] Director: Delano Chacon M.D. Monocytes/100 WBC Auto (Bld) 11.7 % Normal [facility] Comment on above: Performed By: #### C BCDIF, CMET, LIPID ####Unless otherwise noted, all testing performed by [address]8509CLIA: [id number] Director: Delano Chacon M.D. Neutrophils Auto #/vol (Bld) 5.7 K/mcL Normal 1.2-6.[address] [facility] Comment on above: Performed By: #### C BCDIF, CMET, LIPID ####Unless otherwise noted, all testing performed by [address]8509CLIA: [id number] Director: Delano Chacon M.D. Platelet mean volume Auto Entitic volume (Bld) 8.9 fL Normal 7.0-10.[address] [facility] Comment on above: Performed By: #### C BCDIF, CMET, LIPID ####Unless otherwise noted, all testing performed by [address] [phone]: [id number] Director: Delano Chacon M.D. Platelets Auto #/vol (Bld) 234 K/mcL Normal 162-[address] [facility] Comment on above: Performed By: #### C BCDIF, CMET, LIPID ####Unless otherwise noted, all testing performed by [address] [phone]: [id number] Director: Delano Chacon M.D. RBC Auto #/vol (Bld) 4.20 M/mcL Normal 3.7-5.0 [facility] Comment on above: Performed By: #### C BCDIF, CMET, LIPID ####Unless otherwise noted, all testing performed by [address] [id number]: [id number] Director: Delano Chacon M.D. Segmented Neut % 70.6 % Normal [facility] Comment on above: Performed By: #### C BCDIF, CMET, LIPID ####Unless otherwise noted, all testing performed by [address] [id number]: [id number] Director: Delano Chacon M.D. WBC Auto #/vol (Bld) 8.1 K/mcL Normal 3.4-10.6 [facility] Comment on above: Performed By: #### C BCDIF, CMET, LIPID ####Unless otherwise noted, all testing performed by [address] [id number]: [id number] Director: Delano Chacon M.D. [facility] Metabolic Pane [facility] 03-21-2017 Albumin mass conc 3.6 g/dL Normal 3.2-5.2 [facility] Comment on above: Performed By: #### C BCDIF, CMET, LIPID ####Unless otherwise noted, all testing performed by [address] [id number]: [id number] Director: Delano Chacon M.D. ALP enzyme act/vol 63 U/L Normal 40-150 [facility] Comment on above: Performed By: #### C BCDIF, CMET, LIPID ####Unless otherwise noted, all testing performed by [address] [phone]: [id number] Director: Delano Chacon M.D. ALT enzyme act/vol 30 U/L Normal 14-65 [facility] Comment on above: Result Comment: This test result might be falsely depressed or falsely elevated onsamples drawn from patients taking Sulfasalazine and Sulfapyridine.Venipuncture should occur prior to taking either of these drugs. Performed By: #### C BCDIF, CMET, LIPID ####Unless otherwise noted, all testing performed by [address] [phone]: [id number] Director: Delano Chacon M.D. AST enzyme act/vol 32 U/L Normal 0-45 [facility] Comment on above: Result Comment: This test result might be falsely depressed or falsely elevated onsamples drawn from patients taking Sulfasalazine and Sulfapyridine.Venipuncture should occur prior to taking either of these drugs. Performed By: #### C BCDIF, CMET, LIPID ####Unless otherwise noted, all testing performed by [address] [phone]: [id number] Director: Delano Chacon M.D. Bilirubin mass conc 0.6 mg/dL Normal 0.3-1.2 [facility] Comment on above: Performed By: #### C BCDIF, CMET, LIPID ####Unless otherwise noted, all testing performed by [address] [phone]: [id number] Director: Delano Chacon M.D. Calcium mass conc 8.6 mg/dL Normal 8.4-10.2 [facility] Comment on above: Performed By: #### C BCDIF, CMET, LIPID ####Unless otherwise noted, all testing performed by [address] [id number]: [id number] Director: Delano Chacon M.D. Chloride molar conc 95 mmol/L Low 98-108 [facility] Comment on above: Performed By: #### C BCDIF, CMET, LIPID ####Unless otherwise noted, all testing performed by [address] [phone]: [id number] Director: Delano Chacon M.D. CO2 molar conc 25 mmol/L Normal 21-[address] [facility] Comment on above: Performed By: #### C BCDIF, CMET, LIPID ####Unless otherwise noted, all testing performed by [address], [place] [phone]: [id number] Director: Delano Chacon M.D. Creatinine mass conc 0.86 mg/dL Normal 0.60-1.20 [facility] Comment on above: Performed By: #### C BCDIF, CMET, LIPID ####Unless otherwise noted, all testing performed by [address], [place] [phone]: [id number] Director: Delano Chacon M.D. GFR/1.73 sq M predicted among blacks MDRD vol rate/area (S/P/Bld) mL/min/{1.73_m2} Normal [facility] Comment on above: Result Comment: Afri can Slovak GFR Calc Performed By: #### C BCDIF, CMET, LIPID ####Unless otherwise noted, all testing performed by [address], [place] [phone]: [id number] Director: Delano Chacon M.D. GFR/1.73 sq M predicted among non-blacks MDRD vol rate/area (S/P/Bld) mL/min/{1.73_m2} Normal [facility] Comment on above: Result Comment: Non- GFR CalceGFR is an estimated Glomerular Filtration Rate based on the valueof the patient's serum creatinine. In outpatients, eGFR should be usedas a helpful tool in screening for CKD. In inpatients or patients withacute renal failure, eGFR represents the GFR at the moment of the drawand should be used with caution. Performed By: #### C BCDIF, CMET, LIPID ####Unless otherwise noted, all testing performed by [address], [place] [phone]: [id number] Director: Delano Chacon M.D. Glucose mass conc 85 mg/dL Normal 70-99 [facility] Comment on above: Result Comment: This test result might be falsely depressed or falsely elevated onsamples drawn from patients taking Sulfasalazine and Sulfapyridine.Venipuncture should occur prior to taking either of these drugs. Performed By: #### C BCDIF, CMET, LIPID ####Unless otherwise noted, all testing performed by [address] [id number]: [id number] Director: Delano Chacon M.D. Potassium molar conc 4.4 mmol/L Normal 3.5-5.1 [facility] Comment on above: Performed By: #### C BCDIF, CMET, LIPID ####Unless otherwise noted, all testing performed by [address] [phone]: [id number] Director: Delano Chacon M.D. Protein mass conc 7.4 g/dL Normal 6.0-8.0 [facility] Comment on above: Performed By: #### C BCDIF, CMET, LIPID ####Unless otherwise noted, all testing performed by [address] [phone]: [id number] Director: Delano Chacon M.D. Sodium molar conc 130 mmol/L Low 135-145 [facility] Comment on above: Performed By: #### C BCDIF, CMET, LIPID ####Unless otherwise noted, all testing performed by [address] [phone]: [id number] Director: Delano Chacon M.D. Urea nitrogen mass conc 16 mg/dL Normal 8-[address] [facility] Comment on above: Performed By: #### C BCDIF, CMET, LIPID ####Unless otherwise noted, all testing performed by [place] [phone]: [id number] Director: Delano Chacon M.D. Lipid Panelon 03-21-2017 Cholesterol in HDL mass conc 72 mg/dL High 40-[address] [facility] Comment on above: Performed By: #### C BCDIF, CMET, LIPID ####Unless otherwise noted, all testing performed by [address]8509CLIA: [id number] Director: Delano Chacon M.D. Cholesterol in LDL mass conc 43 mg/dL Normal 10-[address] [facility] Comment on above: Performed By: #### C BCDIF, CMET, LIPID ####Unless otherwise noted, all testing performed by [place] [id number]: [id number] Director: Delano Chacon M.D. Cholesterol in VLDL mass conc 17 mg/dL Normal 5-[address] [facility] Comment on above: Performed By: #### C BCDIF, CMET, LIPID ####Unless otherwise noted, all testing performed by [place] [id number]: [id number] Director: Delano Chacon M.D. Cholesterol mass conc 131 mg/dL Normal 100-199 [facility] Comment on above: Performed By: #### C BCDIF, CMET, LIPID ####Unless otherwise noted, all testing performed by [address] [phone]: [id number] Director: Delano Chacon M.D. Cholesterol.total/Chol esterol in HDL mass ratio 1.8 {ratio} Low 3.2-5.[address] [facility] Comment on above: Result Comment: Fema le Coronary Heart Disease Risk Factor (CHDRF):Average risk= 4.41/2 Average risk= 3.32 times Average risk= 7.1 Performed By: #### C BCDIF, CMET, LIPID ####Unless otherwise noted, all testing performed by [address] [phone]: [id number] Director: Delano Chacon M.D. Triglyceride mass conc 84 mg/dL Normal 25-120 [facility] Comment on above: Performed By: #### C BCDIF, CMET, LIPID ####Unless otherwise noted, all testing performed by [address] [phone]: [id number] Director: Delano Chacon M.D. Vital Signs Date Time Vital Sign Value Performing Clinician Facility 06-25-2024 14:15-0500 Body mass index (BMI) [Ratio] 19.51 kg/m2 Yessica Greene MD Work Phone: [facility] 06-25-2024 14:15-0500 Body weight 43.82 kg Yessica Greene MD Work Phone: [facility] 06-25-2024 14:15-0500 Diastolic blood pressure 84 mm[Hg] Yessica Greene MD Work Phone: [facility] 06-25-2024 14:15-0500 Heart rate 62 /min Yessica Greene MD Work Phone: [facility] 06-25-2024 14:15-0500 SaO2% (BldA) [Mass fraction] 99 % Yessica Greene MD Work Phone: [facility] 06-25-2024 14:15-0500 Systolic blood pressure 170 mm[Hg] Yessica Greene MD Work Phone: [facility] 09-07-2023 10:16-0500 Body temperature 97.9 [degF] [facility] 09-07-2023 10:16-0500 Diastolic blood pressure 82 mm[Hg] [facility] 09-07-2023 10:16-0500 Heart rate 72 /min [facility] 09-07-2023 10:16-0500 Respiratory rate 16 /min [facility] 09-07-2023 10:16-0500 SaO2% (BldA) [Mass fraction] 99 % [facility] 09-07-2023 10:16-0500 Systolic blood pressure 188 mm[Hg] [facility] 09-07-2023 08:10-0500 Body height 152.4 cm [facility] 09-07-2023 08:10-0500 Body mass index (BMI) [Ratio] 18.8 kg/m2 [facility] 09-07-2023 08:10-0500 Body weight 43.74 kg [facility] 01-23-2023 19:11-0400 Diastolic blood pressure 70 mm[Hg] Dr. Adela Harley Work Phone: [facility] 01-23-2023 19:11-0400 Heart rate 63 /min Dr. Adela Harley Work Phone: [facility] 01-23-2023 19:11-0400 Respiratory rate 14 /min Dr. Adela Harley Work Phone: [facility] 01-23-2023 19:11-0400 SaO2% (BldA) [Mass fraction] 100 % Dr. Adela Harley Work Phone: [facility] 01-23-2023 19:11-0400 Systolic blood pressure 163 mm[Hg] Dr. Adela Harley Work Phone: [facility] 01-23-2023 18:03-0400 Body height 149.[address] Adela Harley Work Phone: [facility] 01-23-2023 18:03-0400 Body mass index (BMI) [Ratio] 19.5 kg/m2 Dr. Adela Harley Work Phone: [facility] 01-23-2023 18:03-0400 Body temperature 96.8 [degF] Dr. Adela Harley Work Phone: [facility] 01-23-2023 18:03-0400 Body weight 43.[address] Adela Harley Work Phone: [facility] 11-17-2022 11:10-0400 Body weight 44.[address] Adela Harley Work Phone: [facility] 11-17-2022 11:10-0400 Diastolic blood pressure 69 mm[Hg] Dr. Adela Harley Work Phone: [facility] 11-17-2022 11:10-0400 Heart rate 58 /min Dr. Adela Harley Work Phone: [facility] 11-17-2022 11:10-0400 Respiratory rate 16 /min Dr. Adela Harley Work Phone: [facility] 11-17-2022 11:10-0400 SaO2% (BldA) [Mass fraction] 100 % Dr. Adela Harley Work Phone: [facility] 11-17-2022 11:10-0400 Systolic blood pressure 152 mm[Hg] Dr. Adela Harley Work Phone: [facility] 10-04-2022 09:52-0400 Body mass index (BMI) [Ratio] 18.5 kg/m2 Dr. Adela Harley Work Phone: [facility] 10-04-2022 09:52-0400 Body weight 43.[address] Adela Harley Work Phone: [facility] 10-04-2022 09:52-0400 Diastolic blood pressure 74 mm[Hg] Dr. Adela Harley Work Phone: [facility] 10-04-2022 09:52-0400 Heart rate 59 /min Dr. Adela Harley Work Phone: [facility] 10-04-2022 09:52-0400 Respiratory rate 18 /min Dr. Adela Harley Work Phone: [facility] 10-04-2022 09:52-0400 SaO2% (BldA) [Mass fraction] 99 % Dr. Adela Harley Work Phone: [facility] 10-04-2022 09:52-0400 Systolic blood pressure 125 mm[Hg] Dr. Adela Harley Work Phone: [facility] 09-21-2022 10:40-0400 Body temperature 101.41 [degF] Holly Sony [employer] Work Phone: [facility] 09-21-2022 10:40-0400 Body weight 43.91 kg Holly Sony [employer] Work Phone: [facility] 09-21-2022 10:40-0400 Diastolic blood pressure 72 mm[Hg] Holly Sony [employer] Work Phone: [facility] 09-21-2022 10:40-0400 Heart rate 81 /min Holly Sony [employer] Work Phone: [facility] 09-21-2022 10:40-0400 Respiratory rate 18 /min Holly Sony [employer] Work Phone: [facility] 09-21-2022 10:40-0400 SaO2% (BldA) [Mass fraction] 98 % Holly Schroederk [employer]LOAD [employer] Work Phone: [facility] 09-21-2022 10:40-0400 Systolic blood pressure 128 mm[Hg] Holly Cardoza APRN.[employer] Work Phone: [facility] 02-03-2022 11:00-0400 Body height 152.[address] Adela Harley Work Phone: [facility] Work Phone: 02-03-2022 11:00-0400 Body mass index (BMI) [Ratio] 18.3 kg/m2 Dr. Adela Harley Work Phone: [facility] Work Phone: 02-03-2022 11:00-0400 Body weight 42.[address] Adela Harley Work Phone: [facility] Work Phone: 02-03-2022 11:00-0400 Diastolic blood pressure 71 mm[Hg] Dr. Adela Harley Work Phone: [facility] Work Phone: 02-03-2022 11:00-0400 Heart rate 68 /min Dr. Adela Harley Work Phone: [facility] Work Phone: 02-03-2022 11:00-0400 Respiratory rate 16 /min Dr. Adela Harley Work Phone: [facility] Work Phone: 02-03-2022 11:00-0400 SaO2% (BldA) [Mass fraction] 100 % Dr. Adela Harley Work Phone: [facility] Work Phone: 02-03-2022 11:00-0400 Systolic blood pressure 129 mm[Hg] Dr. Adela Harley Work Phone: [facility] Work Phone: 01-06-2022 11:11-0400 Body mass index (BMI) [Ratio] 18.8 kg/m2 Dr. Adela Harley Work Phone: [facility] Work Phone: 01-06-2022 11:11-0400 Body weight 43.[address] Adela Harley Work Phone: [facility] Work Phone: 03-03-2020 09:23-0400 BMI (Body Mass Index) 18.79 kg/m2 [facility] 03-03-2020 09:23-0400 Body weight 43.27 kg [facility] 03-03-2020 09:23-0400 BP Diastolic 74 mm[Hg] [facility] 03-03-2020 09:23-0400 BP Systolic 136 mm[Hg] [facility] 03-03-2020 09:23-0400 Height 151.8 cm [facility] 03-03-2020 09:23-0400 Pulse (Heart Rate) 59 /min [facility] 03-03-2020 09:23-0400 Pulse Oximetry 100 % [facility] 09-03-2019 09:28-0500 BMI (Body Mass Index) 19.06 kg/m2 [facility] 09-03-2019 09:28-0500 Body weight 43.[address] [facility] 09-03-2019 09:28-0500 BP Diastolic 71 mm[Hg] [facility] 09-03-2019 09:28-0500 BP Systolic 128 mm[Hg] [facility] 09-03-2019 09:28-0500 Height 151.[address] [facility] 09-03-2019 09:28-0500 Pulse (Heart Rate) 62 /min [facility] 03-13-2019 09:15-0400 BMI (Body Mass Index) 18.5 kg/m2 [facility] 03-13-2019 09:15-0400 Body weight 43.68 kg [facility] 03-13-2019 09:15-0400 BP Diastolic 70 mm[Hg] [facility] 03-13-2019 09:15-0400 BP Systolic 119 mm[Hg] [facility] 03-13-2019 09:15-0400 Pulse (Heart Rate) 54 /min [facility] 03-13-2019 09:15-0400 Respiratory Rate 16 /min [facility] 02-06-2019 11:21-0400 BP Diastolic 63 mm[Hg] [facility] 02-06-2019 11:21-0400 BP Systolic 127 mm[Hg] [facility] 02-06-2019 11:21-0400 Pulse (Heart Rate) 77 /min [facility] 02-06-2019 11:21-0400 Pulse Oximetry 94 % [facility] 02-06-2019 11:21-0400 Respiratory Rate 16 /min [facility] 02-06-2019 10:37-0400 Body Temperature 97.2 [degF] [facility] 02-06-2019 07:33-0400 BMI (Body Mass Index) 17.86 kg/m2 [facility] 02-06-2019 07:33-0400 Body weight 42.19 kg [facility] 02-06-2019 07:33-0400 Height 153.7 cm [facility] 01-30-2019 09:36-0400 BMI (Body Mass Index) 17.66 kg/m2 [facility] [employer] [facility] 01-30-2019 09:36-0400 Body Temperature 97.81 [degF] [facility] [employer] [facility] 01-30-2019 09:36-0400 Body weight 43.09 kg [facility] [employer] [facility] 01-30-2019 09:36-0400 BP Diastolic 65 mm[Hg] [facility] [employer] [facility] 01-30-2019 09:36-0400 BP Systolic 137 mm[Hg] [facility] [employer] 01-30-2019 09:36-0400 Height 156.2 cm [facility] [employer] 01-30-2019 09:36-0400 Pulse (Heart Rate) 61 /min [facility] [employer] [facility] Comment on above: regular 01-30-2019 09:36-0400 Pulse Oximetry 100 % [facility] [employer] 01-30-2019 09:36-0400 Respiratory Rate 16 /min [facility] [employer] Comment on above: unlabored and clear 01-08-2019 09:26-0400 BMI (Body Mass Index) 18.94 kg/m2 [facility] [employer] 01-08-2019 09:26-0400 [facility]-08-2019 09:26-0400 BP Diastolic 68 mm[Hg] [facility] 01-08-2019 09:26-0400 BP Systolic 142 mm[Hg] [facility] 01-08-2019 09:26-0400 Height 153.7 cm [facility] 01-08-2019 09:26-0400 Pulse (Heart Rate) 59 /min [facility] 01-08-2019 09:26-0400 Pulse Oximetry 99 % [facility] 01-08-2019 09:26-0400 Respiratory Rate 16 /min [facility] 12-22-2018 10:22-0400 BP Diastolic 83 mm[Hg] [facility] [employer] 12-22-2018 10:22-0400 BP Systolic 150 mm[Hg] [facility] [employer] 12-22-2018 10:22-0400 Pulse (Heart Rate) 60 /min [facility] [employer] 12-22-2018 10:22-0400 Pulse Oximetry 99 % [facility] [employer] 12-22-2018 10:22-0400 Respiratory Rate 16 /min [facility] [employer] 12-22-2018 10:12-0400 Body Temperature 98.49 [degF] [facility] [employer] 12-22-2018 08:45-0400 BMI (Body Mass Index) 18.14 kg/m2 [facility] 12-22-2018 08:45-0400 Height 154.9 cm [facility] 12-22-2018 08:45-0400 Weight 43.55 kg [facility] 11-23-2018 08:07-0400 BMI (Body Mass Index) 18.44 kg/m2 [facility] 11-23-2018 08:07-0400 BP Diastolic 67 mm[Hg] [facility] 11-23-2018 08:07-0400 BP Systolic 120 mm[Hg] [facility] 11-23-2018 08:07-0400 Height 153.[address] [facility] 11-23-2018 08:07-0400 Pulse (Heart Rate) 64 /min [facility] 11-23-2018 08:07-0400 Weight 43.[address] [facility] 10-26-2018 09:33-0400 BP Diastolic 74 mm[Hg] [facility] 10-26-2018 09:33-0400 BP Systolic 136 mm[Hg] [facility] 10-26-2018 09:02-0400 BMI (Body Mass Index) 18.6 kg/m2 [facility] 10-26-2018 09:02-0400 Body Temperature 98.1 [degF] Leah [facility] 10-26-2018 09:02-0400 Height 153 cm [facility] 10-26-2018 09:02-0400 Pulse (Heart Rate) 60 /min [facility] 10-26-2018 09:02-0400 Weight 43.55 kg Leah [facility] 09-12-2018 09:43-0400 BMI (Body Mass Index) 19.14 kg/m2 [facility] 09-12-2018 09:43-0400 BP Diastolic 72 mm[Hg] [facility] 09-12-2018 09:43-0400 BP Systolic 135 mm[Hg] [facility] 09-12-2018 09:43-0400 Pulse (Heart Rate) 52 /min [facility] 09-12-2018 09:43-0400 Weight 44.[address] [facility] Encounters Encounter Date Encounter Type Care Provider Facility Start: 08-27-2024 End: 08-27-2024 ambulatory Adela Harley Facility:[facility] Start: 06-25-2024 End: 06-25-2024 ambulatory YESSICA GREENE Facility:[facility] Start: 06-25-2024 End: 06-25-2024 Patient encounter procedure Yessica Greene MD Work Phone: Cardiology Comment on above: Primary hypertension (Primary Dx); Postsurgical percutaneous transluminal coronary angioplasty (PTCA) status; Hx of CABG Start: 05-08-2024 End: 05-08-20[facility] Start: 02-27-2024 End: 02-27-2024 ambulatory [facility] Facility:[facility] Start: 11-01-2023 End: 11-01-2023 [facility] Start: 09-07-2023 End: 09-07-2023 Emergency department patient visit [facility] Work Phone: Start: 08-22-2023 End: 08-22-2023 ambulatory [facility] Work Phone: Start: 08-22-2023 End: 08-22-2023 Patient encounter procedure [facility] Work Phone: Start: 02-21-2023 End: 02-21-[address] Adela Harley Work Phone: [facility] Work Phone: Start: 02-21-2023 End: 02-21-[address] Adela Harley Work Phone: [facility] Work Phone: Start: 01-25-2023 End: 01-25-[address] Adela Harley Work Phone: [facility] Work Phone: Start: 01-25-2023 End: 01-25-[address] Adela Harley Work Phone: [facility], Mirian Prado [facility] Start: 01-23-2023 End: 01-23-2023 Emergency department patient visit Dr. Adela Harley Work Phone: [facility] Work Phone: Start: 11-17-2022 End: 11-17-[address] Adela Harley Work Phone: [facility] Work Phone: Start: 11-17-2022 End: 11-17-[address] [facility] Start: 10-20-2022 End: 10-20-[address] Adela Harley Work Phone: [facility] Work Phone: Start: 10-04-2022 End: 10-04-[address] Adela Harley Work Phone: [facility] Work Phone: Start: 09-22-2022 Telephone encounter Blaine kaur [employer] Work Phone: [facility] Comment on above: Results Start: 09-21-2022 End: 09-21-2022 Patient encounter procedure Holly Cardoza [employer] Work Phone: [facility] Comment on above: URI with cough and c ongestion (Primary Dx) Start: 08-24-2022 End: 08-24-2022 ambulatory [facility] Work Phone: Start: 08-24-2022 End: 08-24-2022 Patient encounter procedure [facility] Start: 08-02-2022 End: 08-02-2022 ambulatory [facility] Work Phone: Start: 08-02-2022 End: 08-02-2022 Patient encounter procedure [facility] Start: 05-19-2022 End: 05-19-[address] Adela Harley Work Phone: [facility] Work Phone: Start: 05-19-2022 End: 05-19-[address] Adela Harley Work Phone: [facility] Start: 02-18-2022 End: 02-18-[address] Adela Harley Work Phone: [facility] Work Phone: Start: 02-18-2022 End: 02-18-[address] Adela Harley Work Phone: [facility] Start: 02-03-2022 End: 02-03-[address] Adela Harley Work Phone: [facility] Start: 02-01-2022 End: 02-01-[address] Adela Harley Work Phone: [facility] Start: 01-29-2022 End: 01-29-[address] Adela Harley Work Phone: [facility] Start: 01-20-2022 End: 01-20-[address] Adela Harley Work Phone: [facility] Start: 01-06-2022 End: 01-06-[address] Adela Harley Work Phone: [facility] Start: 01-19-2021 Release of Information Provide r Not In System [facility] Historical Mapping Start: 01-19-2021 ROSA Legacy Provider Not I n System [facility] Historical Mapping Start: 08-21-2020 End: 08-21-2020 Orders Only Judi Norwood Work Phone: [facility] Start: 03-03-2020 End: 03-03-2020 Office outpatient visit 25 minutes Diana Thomason Work Phone: [facility] Comment on above: Essential hypertensi on; Atherosclerosis of coronary artery bypass graft of [place] heart without angina pectoris; Postmenopausal atrophic vaginitis; Acquired hypothyroidism; Pure hypercholesterolemia Start: 09-03-2019 End: 09-03-2019 Office outpatient visit 25 minutes Daina Thomason Work Phone: [facility] Comment on above: Atherosclerosis of c oronary artery bypass graft of [place] heart without angina pectoris (Primary Dx); Pure hypercholesterolemia; Acquired hypothyroidism; Postmenopausal atrophic vaginitis; Essential hypertension; Hyponatremia Start: 03-15-2019 End: 03-15-2019 Telephone encounter Jolene Bearden [facility] Comment on above: Diarrhea (diarrhea) Start: 03-13-2019 End: 03-13-2019 Office outpatient visit 25 minutes Diana Thomason Work Phone: [facility] Comment on above: Essential hypertensi on (Primary Dx); Atherosclerosis of coronary artery bypass graft of [place] heart without angina pectoris; Acquired hypothyroidism; Pure hypercholesterolemia; Hormone replacement therapy (postmenopausal); Hyponatremia; Postmenopausal atrophic vaginitis; Hiatal hernia Start: 03-06-2019 End: 03-06-2019 Telephone encounter Diana Thomason Work Phone: [facility] Comment on above: Error Postmenopausal atrop hic vaginitis Start: 02-06-2019 End: 02-06-2019 Subsequent hospital visit by physician Dagoberto Gilbert Work Phone: [facility] Periop Comment on above: Abdominal pain, righ t upper quadrant Start: 01-30-2019 End: 01-30-2019 Admission to establishment Dagoberto Gilbert Work Phone: [facility] Pre Admission Comment on above: Preop testing (Prima ry Dx); Abdominal pain, right upper quadrant; Essential hypertension Start: 01-12-2019 End: 01-12-2019 Refill Diana Thomason Work Phone: [facility] Comment on above: Essential hypertensi on (Primary Dx) Start: 01-11-2019 End: 01-11-2019 Refill Diana Thomason Work Phone: [facility] Start: 01-08-2019 End: 01-08-2019 Refill Dagoberto Gilbert Work Phone: [facility] General Surgery Start: 01-08-2019 End: 01-08-2019 Office consultation new/estab patient 30 min Denis Bass Work Phone: [facility] Cardiology Comment on above: Pre-operative cardio vascular examination (Primary Dx); Chronic stable angina; Essential hypertension; Family history of coronary artery disease; S/P CABG x 1; Coronary stent occlusion, sequela Start: 01-05-2019 End: 01-05-2019 Patient encounter procedure Other Other [facility] Start: 12-22-2018 Notes/Results Only Dagoberto lopez Work Phone: NOTES/RESULTS Start: 12-22-2018 End: 12-22-2018 Patient encounter procedure Dagoberto Gilbert Work Phone: [facility] Endoscopy Clinic Comment on above: Gastroesophageal ref lux disease, esophagitis presence not specified Start: 11-23-2018 End: 11-23-2018 Office outpatient visit 25 minutes Diana Thomason Work Phone: [facility] Comment on above: Epigastric pain (Gila zakia Dx); Right upper quadrant pain; Gastroesophageal reflux disease without esophagitis; Essential hypertension; Postmenopausal atrophic vaginitis Start: 10-30-2018 End: 10-30-2018 Patient encounter procedure Historical Provider [facility] Start: 10-27-2018 End: 10-27-2018 Telephone encounter Philippe Valadez [facility] Comment on above: Medication Problem Start: 10-26-2018 End: 10-26-2018 Office outpatient visit 40 minutes Leah Rodgers Work Phone: [facility] Comment on above: Chest pain, unspecif ied type (Primary Dx); Epigastric pain; Essential hypertension Start: 09-21-2018 End: 09-21-2018 Patient encounter procedure Diana Thomason Work Phone: [facility] Bone Density Comment on above: Arrived Start: 09-12-2018 End: 09-12-2018 Office outpatient visit 25 minutes Diana Thomason Work Phone: [facility] Comment on above: Essential hypertensi on (Primary Dx); Atherosclerosis of coronary artery bypass graft of [place] heart without angina pectoris; Acquired hypothyroidism; Pure hypercholesterolemia; Postmenopausal atrophic vaginitis; Post-menopausal Start: 09-05-2018 End: 09-05-2018 Refill Diana Thomason Work Phone: [facility] Start: 03-07-2018 Patient encounter Diana Medrano ility:[place] Start: 03-07-2018 End: 03-07-2018 Patient encounter Diana Thomason Work Phone: [facility] Start: 09-13-2017 Patient encounter Diana Medrano ility:[place] Start: 03-21-2017 Patient encounter Diana Medrano ility:[place] Procedures Date Procedure Procedure Detail Performing Clinician Start: 06-25-2024 History of coronary artery bypass grafting Hx of CABG Yessica Greene MD Work Phone: Start: 09-07-2023 Radiologic examination of knee Start: 09-07-2023 CT cervical spine without contrast Start: 09-07-2023 CT of face Start: 09-07-2023 CT of head without contrast Start: 10-20-[address] Adela Harley Work Phone: Start: 08-24-2022 Dual energy X-ray absorptiometry Start: 01-29-2022 MRI of joint of lower extremity Dr. Jatin Harley Work Phone: Start: 01-06-2022 Radiologic examination of knee Dr. No Harley Work Phone: Start: 02-03-2021 History of placement of stent for coronary artery disease History of coronary artery stent placement Dr. Adela Harley Work Phone: Start: 08-27-2019 Lipid 1996 panel - Serum or Plasma Taylor Thomason Start: 03-06-2019 Lipid 1996 panel - Serum or Plasma Taylor Thomason Start: 12-22-2018 Esophagogastroduodenoscopy transoral diagnostic Diana Thomason Work Phone: Start: 10-26-2018 Electrocardiogram Historical Provider Start: 09-21-2018 Bone density scan Diana Thomason Work Phone: Start: 09-04-2018 Lipid 1996 panel - Serum or Plasma Taylor Thomason Start: 03-07-2018 End: 03-07-2018 Blood count complete auto&auto difrntl wbc Diana Thomason Work Phone: Start: 03-07-2018 End: 03-07-2018 Comprehensive metabolic 2000 panel - Serum or Plasma Diana Thomason Work Phone: Start: 03-07-2018 End: 03-07-2018 Lipid panel Diana Thomason Work Phone: Start: 03-20-2015 Colonoscopy Diana Thomason Start: 06-16-1999 History of coronary artery bypass grafting H/O coronary artery bypass surgery Dr. Adela Harley Work Phone: Plan of Treatment Date Care Activity Detail Author Start: 09-06-2033 Urine microalbumin profile DTaP,Tdap,Td Vaccine (2 - Td or Tdap) [facility] Start: 02-03-2026 LIPID SCREEN LIPID SCREEN [facility] Start: 03-20-2025 Colonoscopy COLONOSCOPY [facility] Start: 01-07-2025 End: 01-07-2025 Patient encounter procedure 01/07/2025 10:20 AM EDT Office Visit Cardiology [address] [place] [address] Yessica Greene MD [address] [facility], [address] [place] [address] 6 MONTH FOLLOW UP Cardiology Comment on above: 6 MONTH FOLLOW UP Start: 08-27-2024 Fasting lipid profile LIPID SCREENING [facility] Start: 03-06-2024 Fasting lipid profile LIPID SCREENING [facility] Start: 02-05-2024 DIABETES SCREEN DIABETES SCREEN [facility] Start: 02-05-2024 Diabetes Screening Diabetes Screening [facility] Start: 09-05-2023 Fasting lipid profile LIPID SCREENING [facility] Start: 07-04-2023 Advance Directive Discussion Advance Directive Discussion [facility] Start: 09-21-2022 End: 10-05-2022 SARS-CoV-2 (COVID-19) RNA [Presence] in Respiratory specimen by CANDIS with probe detection [facility] Work Phone: Comment on above: Expected: 09/21/2022, Expires: Start: 07-04-2022 ADVANCE DIRECTIVE DISCUSSION ADVANCE DIRECTIVE DISCUSSION [facility] Start: 07-04-2022 DEPRESSION ASSESSMENT DEPRESSION ASSESSMENT [facility] Start: 03-04-2021 Influenza vaccination Sequential Influenza Vaccine (#1) [facility] Start: 08-26-2020 End: 08-26-2020 Office Visit 08/26/2020 Office Visit Family Medicine Diana Thomason MD [address] [place] [id number] [phone] [facility] Start: 03-06-2020 TSH Qn TSH [facility] Start: 03-04-2020 Influenza vaccination INFLUENZA VACCINE (#1) [facility] Start: 03-04-2020 Influenza vaccination given Sequential Influenza Vaccine (#1) [facility] Start: 03-03-2020 End: 03-03-2020 Office Visit 03/03/2020 Office Visit Family Medicine Diana Thomason MD [address] [place] [address] [phone] [facility] Start: 02-10-2020 End: 04-10-2020 Comprehensive metabolic 2000 panel COMPREHENSIVE METABOLIC PANEL Lab Routine Atherosclerosis of coronary artery bypass graft of [place] heart without angina pectoris Pure hypercholesterolemia Essential hypertension Hyponatremia Expected: 02/10/2020, Expires: 04/10/2020 [employer] Comment on above: Expected: 02/10/2020, Expires: 0 Start: 01-31-2020 End: 03-31-2020 Complete blood count with white cell differential, automated CBC, EDIF, PLATELET Lab Routine Atherosclerosis of coronary artery bypass graft of [place] heart without angina pectoris Essential hypertension Expected: 01/31/2020 (Approximate), Expires: 03/31/2020 [employer] Comment on above: Expected: 01/31/2020 (Approximate), Expi res: 03/31/2020 Start: 01-31-2020 End: 05-30-2020 LIPID PANEL W CALCULATED LDL LIPID PANEL W CALCULATED LDL Lab Routine Atherosclerosis of coronary artery bypass graft of [place] heart without angina pectoris Pure hypercholesterolemia Essential hypertension Expected: 01/31/2020, Expires: 05/30/2020 [employer] Comment on above: Expected: 01/31/2020, Expires: 0 Start: 01-08-2020 End: 01-08-2020 Office Visit 01/08/2020 Office Visit Cardiovascular Medicine Denis Bass DO [address] [place] [address] [facility] Start: 09-22-2019 Screening for osteoporosis DEXA SCAN DISCUSSION [facility] Start: 09-05-2019 Thyrotropin Qn TSH [facility] Start: 09-03-2019 End: 09-02-2020 Free T4 [Mass/Vol] T4 FREE Lab Routine Acquired hypothyroidism Expected: 09/03/2019, Expires: 09/02/2020 [employer] Comment on above: Expected: 09/03/2019, Expires: 1 Start: 09-03-2019 End: 09-02-2020 TSH Qn TSH Lab Routine Acquired hypothyroidism Expected: 09/03/2019, Expires: 09/02/2020 [facility] Comment on above: Expected: 09/03/2019, Expires: 1 Start: 09-03-2019 End: 09-03-2019 Office Visit 09/03/2019 Office Visit Family Medicine Diana Thomason MD [address] [place] [address] [facility] Start: 08-20-2019 End: 10-19-2019 Comprehensive metabolic 2000 panel COMPREHENSIVE METABOLIC PANEL Lab Routine Pure hypercholesterolemia Hyponatremia Expected: 08/20/2019, Expires: 10/19/2019 [facility] Comment on above: Expected: 08/20/2019, Expires: 0 Start: 08-10-2019 End: 12-08-2019 LIPID PANEL W CALCULATED LDL LIPID PANEL W CALCULATED LDL Lab Routine Pure hypercholesterolemia Expected: 08/10/2019, Expires: 12/08/2019 [facility] Comment on above: Expected: 08/10/2019, Expires: 0 Start: 03-13-2019 End: 03-13-2019 Office Visit [facility] Start: 03-11-2019 End: 06-09-2019 LIPID PANEL W CALCULATED LDL LIPID PANEL W CALCULATED LDL Lab Routine Pure hypercholesterolemia Atherosclerosis of coronary artery bypass graft of [place] heart without angina pectoris Essential hypertension Expected: 03/11/2019, Expires: 06/09/2019 [facility] Comment on above: Expected: 03/11/2019, Expires: 9 Start: 03-04-2019 Influenza vaccination [facility] Start: 02-24-2019 End: 04-10-2019 CBC, EDIF, PLATELET CBC, EDIF, PLATELET Lab Routine Atherosclerosis of coronary artery bypass graft of [place] heart without angina pectoris Essential hypertension Expected: 02/24/2019 (Approximate), Expires: 04/10/2019 [employer] [facility] Comment on above: Expected: 02/24/2019 (Approximate), Expi res: 04/10/2019 Start: 02-24-2019 End: 04-20-2019 Comprehensive metabolic 2000 panel COMPREHENSIVE METABOLIC PANEL Lab Routine Pure hypercholesterolemia Atherosclerosis of coronary artery bypass graft of [place] heart without angina pectoris Essential hypertension Expected: 02/24/2019, Expires: 04/20/2019 [facility] Comment on above: Expected: 02/24/2019, Expires: 9 Start: 02-19-2019 End: 02-19-2019 Office Visit 02/19/2019 Office Visit General Surgery Dagoberto Gilbert, [address] [place] [address] [phone] [facility] Start: 02-06-2019 End: 02-06-2019 Procedure Pass [facility] Per[facility] Comment on above: Abdominal pain, right upper quadrant CHOLECYSTECTOMY LAPA ROSCOPIC1st asst Start: 01-30-2019 End: 02-27-2019 Basic metabolic 2000 panel BASIC METABOLIC PANEL Lab Routine Preop testing Expected: 01/30/2019, Expires: 02/27/2019 [facility] Comment on above: Expected: 01/30/2019, Expires: 9 Start: 01-08-2019 End: 01-08-2019 Office Visit 01/08/2019 Office Visit Cardiovascular Medicine Denis Bass DO [address] [place] [address] [facility] Cardiology Start: 11-23-2018 End: 11-23-2018 Office Visit 11/23/2018 Office Visit Family Medicine Diana Thomason MD [address] [place] [address] [phone] [facility] Start: 10-31-2018 End: 10-31-2018 Office Visit 10/31/2018 Office Visit Family Medicine Diana Thomason MD [address] [place] [address] [phone] [facility] Start: 09-12-2018 End: 09-13-2019 Bone density scan BONE DENSITY AXIAL (HIP, PELVIS, SPINE) Imaging Routine Post-menopausal Expected: 09/12/2018, Expires: 09/13/2019 [facility] Comment on above: Expected: 09/12/2018, Expires: 0 Start: 09-12-2018 End: 09-13-2019 T4 free mass conc T4 FREE Lab Routine Acquired hypothyroidism Expected: 09/12/2018, Expires: 09/13/2019 [facility] Comment on above: Expected: 09/12/2018, Expires: 0 Start: 09-12-2018 End: 09-12-2019 Thyrotropin Qn TSH Lab Routine Acquired hypothyroidism Expected: 09/12/2018, Expires: 09/12/2019 [employer] Comment on above: Expected: 09/12/2018, Expires: 0 Start: 09-12-2018 End: 09-12-2018 Office Visit 09/12/2018 Office Visit Family Medicine Diana Thomason MD [address] [place] [address] [phone] Leah Rodgers APRN-CNP [address] [facility] [place] [address] [phone] [facility] Medicine Start: 03-04-2018 Influenza vaccination [facility] Start: 04-21-2016 Screening for osteoporosis DEXA SCAN DISCUSSION [facility] Start: 03-20-2016 Colonoscopy COLON CANCER SCREENING DISCUSSION [facility] Start: 03-20-2016 Protein mass conc COLON CANCER SCREENING DISCUSSION [facility] Start: 05-30-2013 Shingrix Vaccine (2 of 3) Shingrix Vaccine (2 of 3) [facility] Start: 05-30-2013 Zoster vaccine hzv live for subcutaneous use ZOSTER (SHINGLES) VACCINE (2 of 3) [facility] Start: 2012 BONE DENSITY BONE DENSITY [facility] Start: 2012 Fall risk assessment Falls Risk Assessment [facility] Start: 2012 Pneumococcal vaccination PNEUMOCOCCAL VACCINE AGE 65+ (1 of 2 - PCV13) [facility] Start: 2012 PNEUMOCOCCAL: 65+ (1 - PCV) PNEUMOCOCCAL: 65+ (1 - PCV) [facility] Start: 1997 Administration of herpes zoster vaccine Zoster Vaccines (1 of 2) [facility] Start: 1997 Screening for malignant neoplasm of colon [facility] Start: 1997 SHINGRIX VACCINE (1 of 2) SHINGRIX VACCINE (1 of 2) [facility] Start: 1997 ZOSTER VACCINES (1 of 2) ZOSTER VACCINES (1 of 2) [facility] Start: 1992 COLOGUARD (FIT-DNA) COLOGUARD (FIT-DNA) [facility] Start: 1992 Colonoscopy COLONOSCOPY [facility] Start: 1992 COLORECTAL CANCER SCREENING COLORECTAL CANCER SCREENING [facility] Start: [address] COLONOGRAPHY [facility] Start: 1992 FECAL OCCULT BLOOD FECAL OCCULT BLOOD [facility] Start: 1992 SIGMOIDOSCOPY SIGMOIDOSCOPY [facility] Start: 1987 Protein mass conc MAMMOGRAM SCREENING DISCUSSION [facility] Start: 1987 Screening for malignant neoplasm of breast Mammogram [facility] Start: 1968 Screening for malignant neoplasm of cervix PAP SMEAR DISCUSSION [facility] Start: 1966 Third diphtheria, tetanus and acellular pertussis (DTaP) vaccination TDAP (ADULT) [facility] Start: 1966 Urine microalbumin profile DTAP,TDAP,TD (1 - Tdap) [facility] Start: 1965 Annual PCP Team Chronic Disease Visit Annual PCP Team Chronic Disease Visit [facility] Start: 1965 Anxiety Screening Anxiety Screening [facility] Start: 1965 BP Controlled (<130/80) BP Controlled (<130/80) [facility] Start: 1965 Depression Screening Depression Screening [facility] Start: 1965 Hepatitis C antibody, confirmatory test Hepatitis C Screening [facility] Start: 1965 Hepatitis C screening Hepatitis C Screening [facility] Start: 1965 HEPATITIS C SCREENING HEPATITIS C SCREENING [facility] Start: 1965 Tetanus vaccination TETANUS [facility] Start: 1963 COVID-19 Vaccine (1 of 2) COVID-19 Vaccine (1 of 2) [facility] Start: 1959 Adolescent depression screening assessment Depression Screening (PHQ9) [facility] Start: 1959 COVID-19 Vaccine (1) COVID-19 Vaccine (1) [facility] Start: 1959 Depression screening using PHQ-9 (Patient Health Questionnaire 9) score Depression Screening (PHQ9) [facility] Start: 1953 Pneumococcal Vaccine: Age 65+ (1 of 2 - PPSV23) Pneumococcal Vaccine: Age 65+ (1 of 2 - PPSV23) [facility] Start: 1950 History and physical examination, annual for health maintenance Wellness Visit [facility] Start: 1947 Fall risk assessment Falls Risk Assessment [facility] Start: 1947 Hepatitis C antibody, confirmatory test HEPATITIS C VIRUS SCREENING [facility] Start: 1947 Screening mammography Mammogram [facility] Start: 1947 HEPATITIS C SCREENING HEPATITIS C SCREENING [facility] Start: 1947 Screening colonoscopy COLONOSCOPY [facility] Start: 1947 End: 1947 Screening for osteoporosis DEXA SCAN [facility] Start: 1947 End: 1947 Tetanus vaccination [facility] Ecg routine ecg w/le ast 12 lds w/i&r AL ELECTROCARDIOGRAM, COMPLETE AL - OFFICE PERFORMED Routine Chest pain, unspecified type Ordered: 10/26/2018 [facility] Comment on above: Ordered: 10/26/2018 Free T4 [Mass/Vol] T4 FREE Lab R outine Acquired hypothyroidism Ordered: 03/03/2020 [facility] Comment on above: Ordered: 03/03/2020 HEPATIC FUNCTION PANEL HEPATIC F UNCTION PANEL Lab Routine Pure hypercholesterolemia Ordered: 03/03/2020 [facility] Comment on above: Ordered: 03/03/2020 LIPID PANEL W CALCULATED LDL LIPID PANEL W CALCULATED LDL Lab Routine Pure hypercholesterolemia Ordered: 03/03/2020 [facility] Comment on above: Ordered: 03/03/2020 Patient Education [facility] Work Phone: Patient referral [facility] Work Phone: Standard ECG ECG ECG Routine Pre-operative cardiovascular examination Ordered: 01/08/2019 [facility] Comment on above: Ordered: 01/08/2019 SURGICAL PATHOLOGY REQUEST SURGICAL PATHOLOGY REQUEST Surg Path Routine Abdominal pain, right upper quadrant ONE TIME for 1 Occurrences starting 02/06/2019 [facility] Comment on above: ONE TIME for 1 Occurrences starting 12/2018 TSH Qn TSH Lab Routine Acquired hypothyroidism Ordered: 03/03/2020 [facility] Comment on above: Ordered: 03/03/2020 Immunizations Immunization Date Immunization Notes Care Provider Jazmin freeman 09-07-2023 tetanus toxoid, redu pete diphtheria toxoid, and acellular pertussis vaccine, adsorbed [facility] 03-30-2017 pneumococcal polysaccharide vaccine, [address] [facility] 03-17-2016 pneumococcal conjuga te vaccine, [address] [facility] 03-04-2016 pneumococcal conjuga te vaccine, [address] [facility] 04-04-2013 zoster vaccine, live [facility] 04-04-2013 zoster vaccine, unspecified formulation [facility] Payers Date Payer Category Payer Self-pay [id number] 2023 Medicare [employer] [place] [id number] 2023-Present [phone] [address] [place] [address] HMO [id number] 2023 Medicare [id number] 2022 Unknown ANTHEM BLUE CROS S AND BLUE SHIELD ANTHEM MEDIBLUE HMO [id number] 2022-Present [phone] [address] [place] [address] HMO [id number] 2017 Medicare MEDICARE ANTHEM HMO OR PPO MEDICARE ANTHEM HMO OR PPO xxxxxxxxxxxx 2017-Present xxxxxxxxxxxx [id number] 2017 Medicare MEDICARE ANTHEM HMO OR PPO MEDICARE ANTHEM HMO OR PPO xxxxxxxxxx 2017-Present xxxxxxxxxx [id number] 2015 Medicare [id number] Blue Cross Blue Shield [id number] Unknown [id number] Unknown [id number] Unknown [id number] Unknown [id number] Unknown [id number] Social History Date Type Detail Facility Start: 10-26-2016 End: 09-21-2022 Tobacco smoking status NHIS Never smoker [facility] Start: 1945 Sex Assigned At Not on file [facility] Start: 03-13-2019 End: 06-25-2024 Alcohol intake No [facility] Start: 10-26-2016 End: 09-03-2019 Alcohol intake Current non-drinker of alcohol (finding) [facility] Start: 03-03-2020 End: 09-21-2022 Tobacco use and exposure Never used [facility] Exposure to SARS-CoV -2 (event) Not sure [facility] Start: 02-03-2022 End: 09-07-2023 Tobacco smoking status NHIS Unknown if ever smoked [facility] Start: 05-30-2020 None [facility] Start: 05-30-2020 Non-smoker [facility] Start: 1945 Sex Assigned At Female [facility] Start: 06-25-2024 History of Social function [facility] National Score (1-100), lower number is lower risk 60 [facility] Mental Status Date Assessment Result Facility 01-23-2023 Cognitive function Level Of Cons ciousness Awake;Alert;Appropriate;Follow s Commands [facility] Work Phone: Clinical Notes 06-16-1999 to 06-25-2024 Yessica Greene MD - 06/25/2024 2:30 PM ESTTelephone Encounter - Antoinette Leiva LPN - 09/22/2022 8:16 AM EDTTelephone Encounter - Diana Villanueva - 09/22/2022 8:00 AM EDTPatient Instructions Note Date & Type Note Facility 06-25-2024 Note HNO ID: [id number] Author: YESSICA GREENE MD Service: ? Author Type: Physician Type: Progress Notes Filed: 06/25/2024 15:16 Note Text: Yessica Greene MD Interventional Cardiology [address] [place] [address] [phone] Chief Complaint No chief complaint on file. HISTORY OF PRESENT ILLNESS: Ms. Arroyo is a 79 year old female seen in my office for assessment management of her cardiac condition prior history of severe coronary artery disease with history of bypass surgery many years ago consisted of a AUGUSTINE to the LAD in 1998 in 2020 she had recurrent symptoms cardiac catheterization showed patent AUGUSTINE to the LAD with severe disease in the RCA and moderate disease in the circumflex she underwent complex angioplasty with 2 drug-eluting stent in the distal mid and proximal right coronary artery with excellent result her circumflex shows moderate disease with negative FFR treated medically Comes in for follow-up doing well from the cardiac point of view denies any chest pain she is short of breath with extremely strenuous activities but she carry on her usual activity with no limitations basis Cardiac Risk Factors age (male over 45, female over 55), hyperlipidemia, hypertension, family history of CAD PAST MEDICAL HISTORY Diagnosis Date Anemia Anxiety state Arthritis Breast cancer (HCC) CAD (coronary artery disease) GERD (gastroesophageal reflux disease) History of hepatitis A HTN (hypertension) Hypothyroidism IBS (irritable bowel syndrome) Mixed hyperlipidemia Osteopenia PAST SURGICAL HISTORY Procedure Laterality Date BUNIONECTOMY, LAPIDUS-TYPE HEART CATHETERIZATION with stent HEART SURGERY HX cabg MASTECTOMY HX Bilateral with implants ORTHOPEDIC SURGERY HX shoulder, knee and toes TOTAL ABDOM HYSTERECTOMY FAMILY HISTORY Family history unknown: Yes Social History Tobacco Use Smoking status: Never Smokeless tobacco: Never ALLERGIES Allergen Reactions Lactose Diarrhea Penicillins Hives Medications: Current Outpatient Medications Medication Sig Dispense Refill Cranberry 400 mg cap Take 800 mg by mouth once daily. simvastatin (ZOCOR) 10 mg tablet Take 1 tablet by mouth every afternoon. lisinopril (ZESTRIL) 10 mg tablet Take 15 mg by mouth once daily. Take 1.5 tablets daily Estradiol (ESTRACE) 0.5 mg tablet Take 0.5 mg by mouth once daily. cholecalciferol, vitamin D3, (CHOLECALCIFEROL, VITD3,, BULK,) 100,000 unit/gram powd Take 50 mcg by mouth. aspirin, enteric coated (ASPIRIN, ENTERIC COATED) 81 mg EC tablet Take 81 mg by mouth. Flaxseed Oil oil 1,000 mg twice daily. levothyroxine (SYNTHROID) 25 mcg tablet Take 50 mcg by mouth once daily. nitroglycerin sublingual (NITROQUICK) 0.4 mg SL tablet Dissolve 0.4 mg under the tongue every 5 minutes as needed. biotin 100 mg/gram powd Take by mouth. (Patient not taking: Reported on 06/25/2024) No current facility-administered medications for this visit. Review of Systems Constitutional: Negative for chills, diaphoresis, fever, malaise/fatigue and weight loss. HENT: Negative for congestion, ear discharge, ear pain, hearing loss, nosebleeds, sinus pain, sore throat and tinnitus. Eyes: Negative for blurred vision, double vision, photophobia, pain, discharge and redness. Respiratory: Positive for shortness of breath. Negative for cough, hemoptysis, sputum production, wheezing and stridor. Cardiovascular: Negative for chest pain, palpitations, orthopnea, claudication, leg swelling and PND. Gastrointestinal: Negative for abdominal pain, blood in stool, constipation, diarrhea, heartburn, melena, nausea and vomiting. Genitourinary: Negative for dysuria, flank pain, frequency, hematuria and urgency. Musculoskeletal: Negative for back pain, falls, joint pain, myalgias and neck pain. Skin: Negative for itching and rash. Neurological: Negative for dizziness, tingling, tremors, sensory change, speech change, focal weakness, seizures, loss of consciousness, weakness and headaches. Endo/Heme/Allergies: Negative for environmental allergies and polydipsia. Does not bruise/bleed easily. Psychiatric/Behavioral: Negative for depression, hallucinations, memory loss, substance abuse and suicidal ideas. The patient is not nervous/anxious and does not have insomnia. Physical Examination: Vitals:BP 170/84 Pulse 62 Wt 96 lb 9.6 oz (43.8kg) SpO2 99% BP w/Orthostatic Vitals Date and Time Orthostatic BP Orthostatic Pulse BP Pulse BP Position BP Site BP Cuff Size 06/25/24 1415 -- -- 170/84 62 -- -- -- Last 2 Encounter Wt Readings: Date: Wt: 06/25/2024 43.8 kg (96 lb 9.6 oz) 09/21/2022 43.9 kg (96 lb 12.8 oz) Physical Exam Constitutional: General: She is not in acute distress. Appearance: She is not diaphoretic. HENT: Head: Normocephalic and atraumatic. Right Ear: External ear normal. Left Ear: External ear normal. Nose: Nose normal. Chen (more content not included)... [facility] 06-25-2024 History of Presen t illness Narrative Images from the original note were not included. Yessica Greene MD Interventional Cardiology [address] [place] [address] [phone] Chief Complaint No chief complaint on file. HISTORY OF PRESENT ILLNESS: Ms. Arroyo is a 79 year old female seen in my office for assessment management of her cardiac condition prior history of severe coronary artery disease with history of bypass surgery many years ago consisted of a AUGUSTINE to the LAD in 1998 in 2020 she had recurrent symptoms cardiac catheterization showed patent AUGUSTINE to the LAD with severe disease in the RCA and moderate disease in the circumflex she underwent complex angioplasty with 2 drug-eluting stent in the distal mid and proximal right coronary artery with excellent result her circumflex shows moderate disease with negative FFR treated medically Comes in for follow-up doing well from the cardiac point of view denies any chest pain she is short of breath with extremely strenuous activities but she carry on her usual activity with no limitations basis Cardiac Risk Factors age (male over 45, female over 55), hyperlipidemia, hypertension, family history of CAD PAST MEDICAL HISTORY Diagnosis Date Anemia Anxiety state Arthritis Breast cancer (HCC) CAD (coronary artery disease) GERD (gastroesophageal reflux disease) History of hepatitis A HTN (hypertension) Hypothyroidism IBS (irritable bowel syndrome) Mixed hyperlipidemia Osteopenia PAST SURGICAL HISTORY Procedure Laterality Date BUNIONECTOMY, LAPIDUS-TYPE HEART CATHETERIZATION with stent HEART SURGERY HX cabg MASTECTOMY HX Bilateral with implants ORTHOPEDIC SURGERY HX shoulder, knee and toes TOTAL ABDOM HYSTERECTOMY FAMILY HISTORY Family history unknown: Yes Social History Tobacco Use Smoking status: Never Smokeless tobacco: Never ALLERGIES Allergen Reactions Lactose Diarrhea Penicillins Hives Medications: Current Outpatient Medications Medication Sig Dispense Refill Cranberry 400 mg cap Take 800 mg by mouth once daily. simvastatin (ZOCOR) 10 mg tablet Take 1 tablet by mouth every afternoon. lisinopril (ZESTRIL) 10 mg tablet Take 15 mg by mouth once daily. Take 1.5 tablets daily Estradiol (ESTRACE) 0.5 mg tablet Take 0.5 mg by mouth once daily. cholecalciferol, vitamin D3, (CHOLECALCIFEROL, VITD3,, BULK,) 100,000 unit/gram powd Take 50 mcg by mouth. aspirin, enteric coated (ASPIRIN, ENTERIC COATED) 81 mg EC tablet Take 81 mg by mouth. Flaxseed Oil oil 1,000 mg twice daily. levothyroxine (SYNTHROID) 25 mcg tablet Take 50 mcg by mouth once daily. nitroglycerin sublingual (NITROQUICK) 0.4 mg SL tablet Dissolve 0.4 mg under the tongue every 5 minutes as needed. biotin 100 mg/gram powd Take by mouth. (Patient not taking: Reported on 06/25/2024) No current facility-administered medications for this visit. Review of Systems Constitutional: Negative for chills, diaphoresis, fever, malaise/fatigue and weight loss. HENT: Negative for congestion, ear discharge, ear pain, hearing loss, nosebleeds, sinus pain, sore throat and tinnitus. Eyes: Negative for blurred vision, double vision, photophobia, pain, discharge and redness. Respiratory: Positive for shortness of breath. Negative for cough, hemoptysis, sputum production, wheezing and stridor. Cardiovascular: Negative for chest pain, palpitations, orthopnea, claudication, leg swelling and PND. Gastrointestinal: Negative for abdominal pain, blood in stool, constipation, diarrhea, heartburn, melena, nausea and vomiting. Genitourinary: Negative for dysuria, flank pain, frequency, hematuria and urgency. Musculoskeletal: Negative for back pain, falls, joint pain, myalgias and neck pain. Skin: Negative for itching and rash. Neurological: Negative for dizziness, tingling, tremors, sensory change, speech change, focal weakness, seizures, loss of consciousness, weakness and headaches. Endo/Heme/Allergies: Negative for environmental allergies and polydipsia. Does not bruise/bleed easily. Psychiatric/Behavioral: Negative for depression, hallucinations, memory loss, substance abuse and suicidal ideas. The patient is not nervous/anxious and does not have insomnia. Physical Examination: Vitals:BP 170/84 Pulse 62 Wt 96 lb 9.6 oz (43.8kg) SpO2 99% BP w/Orthostatic Vitals Date and Time Orthostatic BP Orthostatic Pulse BP Pulse BP Position BP Site BP Cuff Size 06/25/24 1415 -- -- 170/84 62 -- -- -- Last 2 Encounter Wt Readings: Date: Wt: 06/25/2024 43.8 kg (96 lb 9.6 oz) 09/21/2022 43.9 kg (96 lb 12.8 oz) Physical Exam Constitutional: General: She is not in acute distress. Appearance: She is not diaphoretic. HENT: Head: Normocephalic and atraumatic. Right Ear: External ear normal. Left Ear: External ear normal. Nose: Nose normal. Mouth/Throat: Pharynx: Oropharynx is clear. Eyes: General: Right eye: No discharge. Left eye: No discharge. Conjunctiva/sclera: Conjunctivae normal. Pupils: Pupils are equal, round, and reactive to light. Cardiovascular: Rate and Rhythm: Normal rate and regular rhythm. Heart sounds: Normal heart sounds, S1 normal and S2 normal. No murmur heard. No friction rub. No gallop. No S3 or S4 sounds. Pulmonary: Effort: Pulmonary effort is normal. No respiratory distress. Breath sounds: Normal breath sounds. No wheezing or rales. Chest: Chest wall: No tenderness. Abdominal: General: Abdomen is flat. Musculoskeletal: General: Normal range of motion. Cervical back: Normal range of motion and neck supple. Skin: General: Skin is warm and dry. Neurological: Mental Status: She is alert and oriented to person, place, and time. Psychiatric: Mood and Affect: Mood normal. Pertinent Labs: CBC: Hemoglobin (g/dL) Date Value 02/04/2021 11.6 05/30/2020 12.7 Hematocrit (%) Date Value 02/04/2021 34.1 05/30/2020 36.6 WBC (k/uL) Date Value 02/04/2021 11.58 05/30/2020 31.70 Platelet Count (k/uL) Date Value 02/04/2021 282 05/30/2020 348 BMP: Glucose (mg/dL) Date Value 02/04/2021 86 05/30/2020 113 Potassium (mmol/L) Date Value 02/04/2021 4.1 05/30/2020 5.0 Sodium (mmol/L) Date Value 02/04/2021 132 05/30/2020 124 Chloride (mmol/L) Date Value 02/04/2021 98 05/30/2020 89 CO2 (mmol/L) Date Value 02/04/2021 22 05/30/2020 25 Creatinine (mg/dL) Date Value 02/04/2021 0.71 05/30/2020 1.38 BUN (mg/dL) Date Value 02/04/2021 15 05/30/2020 31 Anion Gap (mmol/L) Date Value 02/04/2021 12 05/30/2020 10 Calcium (mg/dL) Date Value 05/30/2020 9.3 Calcium, Total (mg/dL) Date Value 02/04/2021 9.2 INR: Lipid Profile: Cholesterol, Total Date Value Ref Range Status 02/03/2021 119 <200 mg/dL Final Comment: <200 mg/dL, Desirable 200-239 mg/dL, Borderline high >239 mg/dL, High HDL Cholesterol Date Value Ref Range Status 02/03/2021 67 >39 mg/dL Final Comment: 40-59 mg/dL, Acceptable >59 mg/dL, High: Negative risk factor for coronary heart disease <40 mg/dL, Low: Positive risk factor for coronary heart disease LDL Cholesterol Date Value Ref Range Status 02/03/2021 35 <100 mg/dL Final Comment: <100 mg/dL, Optimal 100-129 mg/dL, Near optimal/above optimal 130-159 mg/dL, Borderline high 160-189 mg/dL, High >189 mg/dL, Very high Secondary prevention optimal LDL Cholesterol levels are recommended to be < 70 mg/dL Triglyceride Date Value Ref Range Status 02/03/2021 85 <150 mg/dL Final Comment: <150 mg/dL, Normal 150-199 mg/dL, Borderline high 200-499 mg/dL, High >499 mg/dL, Very high Hemoglobin A1C: No results found for: HGBA1C TSH: No results found for: TSHREFL Prior Cardiac Testing none Assessment and Plan: 79 years old female patient status post complex angioplasty of the right coronary artery with patent AUGUSTINE to the LAD ASSESSMENT/PLAN: 1. Primary hypertension - ICD9: 401.9, ICD10: I10 (primary diagnosis) - Controlled - Continue current medications - Recommend home blood pressure monitoring, to bring results to next visit - Encouraged sodium restriction, DASH or Mediterranean diet - Recommend regular aerobic exercise 2. Postsurgical percutaneous transluminal coronary angioplasty (PTCA) status - ICD9: V45.82, ICD10: Z98.61 Stable with no angina continue medical therapy 3. Hx of CABG - ICD9: V45.81, ICD10: Z95.1 Patient AUGUSTINE to the LAD Yessica Greene MD Follow up plannin months Electronically signed by Yessica Greene MD on June 25, 2024, 2:30 PM The above note was partially created using a dictation recognition software. A reasonable attempt has been made to correct any errors. documented in this encounter [facility] 09-22-2022 Miscellaneous Notes Patient returned call and [...] care provider or schedule a visit with [facility]. A test is not recommended to return to work/school when meeting the above criteria. Blaine Leon APRN.RENÉ documented in this encounter [facility] 09-21-2022 Instructions Holly Cardoza APRN.CNP - 09/21/2022 10:57 AM EDT covid and influenza test ordered You will be notified in 12-24 hours, results available on [employer] Home isolation until results are back Rest, [...] inability to swallow. documented in this encounter [facility] 09-21-2022 History of Presen t illness Narrative Subjective The history is provided by the patient. No forensic dna analyst was used. HPI Ben Arroyo is a 77 year old female who [...] have confirmed and edited as necessary, the [facility] Review of Systems Constitutional: Positive [...] in 12-24 hours with results, available on [email or web address] CORONAVIRUS Diagnosis and treatment plan were discussed and questions were answered to the patient's satisfaction. Pt acknowledged understanding of concepts and follow up plan. Specific signs and symptoms that would indicate the need for higher level of care were discussed in detail warranting prompt ER evaluation. Holly Cardoza APRN.RENÉ documented in this encounter [facility] 02-04-2021 Note HNO ID: [id number] Author: Florin Meyer MD Service: Cardiovascular Medicine [...] Greene MD Date: 02/06/2021 Time: 1:37 PM [facility] CVICU PROGRESS NOTE Service Date: 02/04/2021 Service Time: 6:58 AM HISTORY OF PRESENT ILLNESS: Ms. Arroyo is a 75 year old female with [...] She moved to a new house in [place] approximately a year ago as she was no longer able to take care of her prior yard due to recurrent episodes of exertional chest pressure. Since moving to [place], patient has recently established care with Dr. [...] evaluation with an FFR and rotablation at [facility] this upcoming . ? However, patient reports that yesterday while laying on the couch, she developed severe substernal chest pressure starting in her lower chest and radiating upwards into her neck, jaw and back. She did experience associated nausea, diaphoresis and shortness of breath. She went back to [place] where she was given aspirin, morphine and 4 sublingual nitroglycerin with resolution of her symptoms. She was subsequently transferred to [facility] for further evaluation. ? Patient otherwise denies [...] (!) 59 (!) 55 (!) 54 Resp: 11 20 11 12 Temp: 36.8 ?C (98.2 ?F) TempSrc: (more content not included)... [facility] 02-03-2021 Note HNO ID: [id number] Author: Yessica Greene MD Service: Interventional Cardiology [...] the wrist with 1% lidocaine. A pre-flushed 6-Hungarian sheath was inserted into the Right radial [...] next 12 months, but preferably for the marine oil terminal superintendent since multiple drug eluting stents were deployed today. 3. Statin use 4. Secondary cardiac prevention measures. SIGNATURE: Yessica Greene MD PATIENT NAME: Ben Arroyo DATE: February 03, 2021 TIME: 10:35 AM [facility] 02-02-2021 Note HNO ID: [id number] Author: Candido Sauceda MD Service: Hospital Medicine Author Type: Physician Type: Progress Notes Filed: 02/02/2021 2:39 PM Note Text: DEPARTMENT OF HOSPITAL MEDICINE PROGRESS NOTE SERVICE DATE: 02/02/2021 SERVICE TIME: 2:36 PM Hospital Medicine/Primary Attending: Candido sauceda MD NIGHT AND WEEKEND COVERAGE: [place] COVERAGE: After 7pm, please call cross cover pager #[phone] Subjective INTERVAL HPI: Pt was admitted with chest pain last night. Currently she is chest pain free. Cardiology has evaluated patient and plan is for [facility] today. MEDICATIONS: Reviewed Objective PHYSICAL EXAM: BP [...] been consulted, appreciate recs. Plan is for [facility] today. She has not tolerated BB before [...] 5,000 Units SUBCUTANEOUS EVERY 12 HOURS Given, 02/02 90602/01/212125 -- 02/01/212129 activity - mobilize patient (ga,il) VTE Prophylaxis: VTE prophylaxis appropriate Disposition: Home Plan of care discussed with: Patient SIGNATURE: Candido sauceda MD PATIENT NAME: Ben Arroyo DATE: February 02, 2021 TIME: 2:36 PM etx [id number] [facility] 02-02-2021 History of Past i llness Narrative Problem Noted Date Resolved Date Unstable angina 02/02/2021 02/04/2021 Chest pain 02/01/2021 02/04/2021 documented as of this encounter (statuses as of 09/21/2022) [facility] History of Past illness Narrative* Problem Noted Date Resolved Date Unstable angina 02/02/2021 02/04/2021 Chest pain 02/01/2021 02/04/2021 documented as of this encounter (statuses as of 09/22/2022) [facility] NoteHNO ID: [id number] Author: Marnie Basurto RN Service: Care Management [...] planning services during this admission, please call [phone]. Marnie Basurto RN February 02, 2021 9:27 AM SIGNATURE: Marnie Basurto RN PATIENT NAME: Ben Arroyo DATE: February 02, 2021 TIME: 9:26 AM PAGER/CONTACT #: [phone] note* Diagnosis Onset Date Resolution Status H/O coronary artery bypass surgery June 16, 1999 acute History of coronary artery stent placement February 03, 2021 acute Hyperlipidemia acute Essential hypertension [facility] Work Phone: [phone] 795-463512-14-1999 Evaluation note* Diagnosis Onset Date Resolution Status H/O coronary artery bypass surgery June 16, 1999 acute History of coronary artery stent placement February 03, 2021 acute Hyperlipidemia acute Essential hypertension chron ic Left ankle pain acute Left ankle sprain acute Varicose veins of left leg with edema acute [facility] Work Phone: evaluation note* Diagnosis Onset Date Resolution Status Left knee pain noneactive Osteoarthritis of left knee noneactive Osteoarthritis of left knee noneactive Internal derangement of left knee noneactive Left knee pain noneactive H/O coronary artery bypass surgery June 16, 1999 acute History of coronary artery stent placement February 03, 2021 acute Hyperlipidemia acute Essential hypertension chron [facility] Work Phone: evaluation noteNo assessment information available [facility] Work Phone: evaluation note* Diagnosis URI with cough and congestion- Primary [facility] Onset Date Resolution Status Varicose veins of left leg with edema acute [facility] Work Phone: Evaluation note* Diagnosis Primary hypertension- Primary Unspecified essential hypertension Postsurgical percutaneous transluminal coronary angioplasty (PTCA) status Postsurgical percutaneous transluminal coronary angioplasty status Hx of CABG Postsurgical aortocoronary bypass status documented in this encounter [facility] Discharge instructions Additional Instructions Please follow-up with your PCP for repeat blood work. Return for any worsening of your symptoms.[facility] Work Phone: Summary Purpose Family History No Family History Records Found Relationship Condition Age at Onset Recorded Date/T phillip sister Malignant neoplasm of breast Unknown grandmother Malignant neoplasm of breast Unknown father Cerebrovascular accident (CVA) Unknown Myocardial infarction Unknown mother Parkinson's disease Unknown brother Seizure Unknown Cerebrovascular accident (CVA) Unknown Advance Directives No Advanced Directives Records FoundDocuments on File Type Date Recorded Patient Software Database Architect Expl anation Advance Directives/Living Will 01/30/2019 10:24 AM Documents on File Type Date Recorded Patient Software Database Architect Expl anation Advance Directives/Living Will 01/30/2019 10:24 AM Advance Directive Response Recorded Date/ Time Advance Directives Yes January 26 9:11am Living Will Yes September 11, 2021 7:37am Power of Youth Services Specialist Yes September 11 7:37am Advance Directive Response Recorded Date/ Time Advance Directives Yes January 26 8:11am Living Will Yes September 11, 2021 6:37am Power of Youth Services Specialist Yes September 11 6:37am Advance Directive Response Recorded Date/ Time Name of Medical Power of Youth Services Specialist DAUGHTERS January 23, 2023 6:14pm Advance Directives Yes January 26 9:11am Living Will Yes January 23, 2023 6:14pm Power of Youth Services Specialist Yes January 23 6:14pm Advance Directive Response Recorded Date/ Time Advance Directives Yes January 26 8:11am Living Will Yes January 23, 2023 5:14pm Power of Youth Services Specialist Yes January 23 5:14pm Reason for Referral Status Reason Specialty Diagnoses / Procedures Referred By Contact Referred To Contact New Request Diagnoses Post-menopausal Procedures BONE DENSITY AXIAL (HIP, PELVIS, SPINE) Diana Thomason MD [address] [place] [address] Status Reason Specialty Diagnoses / Procedures Referre d By Contact Referred To Contact Closed Diagnoses Post-menopausal Procedures BONE DENSITY AXIAL (HIP, PELVIS, SPINE) Diana Thomason MD [address] [facility] [place] [phone] Status Reason Specialty Diagnoses / Procedures Referred By Contact Referred To Contact Open General Surgery Diagnoses Epigastric pain Gastroesophageal reflux disease without esophagitis Diana Thomason MD [address] [place] [phone] Mario Calabrese, DO [address] [facility] [place] [address] [place] [address] Status Reason Specialty Diagnoses / Procedures Re ferred By Contact Referred To Contact New Request Diagnoses Pre-operative cardiovascular examination Procedures ECG Denis Bass, DO [address] [facility] [place] [phone] History of Present Illness * Diana Thomason MD - 09/12/2018 9:30 AM EDT Chief Complaint Patient presents with Results Menopause Thyroid Problem Hypercholesterol Atherosclerosis HPI: Regarding Hypertension: Ben is a 73 y.o. female who comes [...] the morning without missing doses. Regarding Hyperlipidemia: Ben comes in today to follow up on [...] Atherosclerosis of coronary artery bypass graft of [place] heart without angina pectoris Chronic stable, continue [...] Exam documented in this encounter* Leah Rodgers APRN-WOOD DIE MAKER - 10/26/2018 9:00 AM EDT Chief Complaint [...] times a day for years. Regarding Hypertension: Ben is a 73 y.o. female who comes [...] F (36.7 C), height 1.53 m (5' 0.24), weight 43.5kg (96 lb). Body mass index [...] Chest pain, unspecified type EKG shows previous MN, no acute episode. - [place] ELECTROCARDIOGRAM, COMPLETE 2. Epigastric pain Suspect gastritis, [...] 120/67, pulse 64, height 1.537 m (5' 0.5), weight 43.5 kg (96 lb). Body mass [...] Raynaud's disease Hypertension Family history CAD HPI Ben Arroyo is a 73 y.o. female seen by [...] imaging protocol was followed using Tc-99m tetrofosmin (Spazzles) injected intravenously. For the rest portion of [...] and Electronically signed at 10/26/2016 14:24:47 by: Zakia Galdamez M.D. Active physically, walks 1 1/2 [...] Laterality: N/A; Surgeon: Dagoberto Gilbert DO; Location: [facility] ENDOSCOPY BUNIONECTOMY 08/2008 [place] HEART SURGERY 1998 Bypass anterior descending [...] file Gets together: Not on file Attends orthodox service: Not on file Active member of [...] resp. rate 16, height 1.537 m (5' 0.5), weight 44.7 kg (98 lb 9.6oz), SpO2 [...] and otherwise unremarkable. Although ideally on beta ajit she seems to be doing well on [...] broken teeth, caps or crowns) no BETA AJIT USE no STEROIDS IN THE PAST 2 [...] Hypothyroidism Hyperlipidemia Abdominal Pain HPI: Regarding Hypertension: Ben is a 74 y.o. female who comes [...] the morning without missing doses. Regarding Hyperlipidemia: Ben comes in today to follow up on [...] Atherosclerosis of coronary artery bypass graft of [place] heart without angina pectoris Change med to [...] Thyroid Problem Hyperlipidemia Menopause HPI: Regarding Hypertension: Ben is a 74 y.o. female who comes [...] the morning without missing doses. Regarding Hyperlipidemia: Ben comes in today to follow up on [...] 128/71, pulse 62, height 1.518 m (4' 11.75), weight 43.9 kg (96 lb 12.8 oz). [...] Atherosclerosis of coronary artery bypass graft of [place] heart without angina pectoris Chronic stable, continue [...] Coronary Atherosclerosis Thyroid Problem HPI: Regarding Hypertension: Ben is a 74 y.o. female who comes [...] the morning without missing doses. Regarding Hyperlipidemia: Ben comes in today to follow up on [...] 136/74 Pulse 59 Ht 1.518 m (4' 11.75) Wt 43.3 kg (95 lb 6.4 oz) [...] Atherosclerosis of coronary artery bypass graft of [place] heart without angina pectoris Chronic stable, continue [...] with plan. Diana Thomason MD 03/03/2020 * Lucia Gomes - 03/03/2020 9:30 AM EDT Nurse Note: [...] broken teeth, caps or crowns) no BETA AJIT USE no STEROIDS IN THE PAST 2 [...] Atherosclerosis of coronary artery bypass graft of [place] heart without angina pectoris Acquired hypothyroidism Unspecified [...] Atherosclerosis of coronary artery bypass graft of [place] heart without angina pectoris Acquired hypothyroidism Unspecified hypothyroidism Pure hypercholesterolemia Hormone replacement therapy (postmenopausal) Need for prophylactic hormone replacement therapy (postmenopausal) Hyponatremia Hyposmolality and/or hyponatremia Postmenopausal atrophic vaginitis Hiatal hernia Diaphragmatic hernia without mention of obstruction or gangrene Diagnosis Atherosclerosis of coronary artery bypass graft of [place] heart without angina pectoris Pure hypercholesterolemia Acquired hypothyroidism Unspecified hypothyroidism Postmenopausal atrophic vaginitis Essential hypertension Unspecified essential hypertension Hyponatremia Hyposmolality and/or hyponatremia Diagnosis Essential hypertension Unspecified essential hypertension Atherosclerosis of coronary artery bypass graft of [place] heart without angina pectoris Postmenopausal atrophic vaginitis Acquired hypothyroidism Unspecified hypothyroidism Pure hypercholesterolemia Diagnosis Abdominal pain, right upper quadrant Right upper quadrant abdominal pain Abdominal pain, right upper quadrant Diagnosis Essential hypertension- Primary Unspecified essential hypertension Diagnosis Postmenopausal atrophic vaginitis Instructions * Patient Instructions* Leah Rodgers, JASON-WOOD DIE MAKER - 10/26/2018 9:00 AM EDT Please start [...] Feeling full quickly Fatigue Date Last Reviewed: 01/02/201619999139-4121 [employer]. [address] [place] [address]. All rights reserved. This information is not intended as a substitute for professional medical care. Always follow yourhealthcare professional's instructions. documented in this encounter* Patient Instructions* Rina Leon RN - 01/30/2019 9:30 AM EDT Thank you for choosing [facility] Your surgery date is TuesdayFebruary 06 Please call [phone] For your convenience, please call (between 9AM [...] notified if your arrival time changes. At [facility]'s Surgery Department, we strive to make [...] Tuesday, 8:00 am to 4:30 pm at [phone]. For surgical questions during evenings or weekends, please call [phone] and ask the ribbon hanking machine operator to page the Nursing Lubricating Engineer. Discontinue any blood thinners such as Aspirin, [...] skin creams or lotions. Any make-up, nail australian and lipstick will need to be removed [...] their cases with you for proper storage. [facility] will not be responsible for lost [...] fetus. 12. No alcohol 48-hours or illicit [id number] prior to your surgery. 13. Do not [...] in the front main lot facing [address]. Enter through the front entrance and sign in at the Registration Desk at the [facility]. Thank you for allowing us the privilege [...] chances for infection. Controlled body temperature. A gvyue-yzjl-hyowba temperature during or after surgery prevents oxygen [...] and water or with an alcohol-based hand machinery cleaner before and after caring for you. [...] tired feeling that doesn t go away [id number] [employer]. [address] [place] [address]. All rights reserved. This information is not intended as a substitute for professional medical care. Always follow yourhealthcare professional's instructions. Please record date and time of your medications on this sheet and bring this with you on the day ofsurgery. Yellow - take the day of surgery [place] - hold according to the doctor's instructions [...] 9:30 AM EDT Thank you for choosing [facility] Your surgery date is TuesdayFebruary 06 Please call [phone] For your convenience, please call (between 9AM [...] notified if your arrival time changes. At [facility]'s Surgery Department, we strive to make [...] Tuesday, 8:00 am to 4:30 pm at [phone]. For surgical questions during evenings or weekends, please call [phone] and ask the ribbon hanking machine operator to page the Nursing Lubricating Engineer. Discontinue any blood thinners such as Aspirin, [...] skin creams or lotions. Any make-up, nail australian and lipstick will need to be removed [...] their cases with you for proper storage. [facility] will not be responsible for lost [...] fetus. 12. No alcohol 48-hours or illicit [id number] prior to your surgery. 13. Do not [...] questions or concerns. DIRECTIONS: Park in the [facility] facing [address]. Enter through the front entrance and sign in at the Registration Desk at the [facility]. Thank you for allowing us the privilege [...] chances for infection. Controlled body temperature. A slqsp-qoia-dcyswz temperature during or after surgery prevents oxygen [...] and water or with an alcohol-based hand machinery cleaner before and after caring for you. [...] tired feeling that doesn t go away [id number] [employer] [address] [place] [address]. All rights reserved. This information is not intended as a substitute for professional medical care. Always follow yourhealthcare professional's instructions. Please record date and time of your medications on this sheet and bring this with you on the day ofsurgery. Yellow - take the day of surgery [place] - hold according to the doctor's instructions [...] as a laparoscopic cholecystectomy. A laparoscopic cholecystectomy ozyz procedure to remove your gallbladder. People who [...] or shortness of breath Date Last Reviewed: 01/02/201619998876-3928 [employer] [address] [place] [address]. All rights reserved. This information is not intended as a substitute for professional medical care. Always follow yourhealthcare professional's instructions. documented in this encounter Chief Complaint and Reason for Visit Chief Complaint lt knee LEFT KNEE LT KNEE PAIN LEFT KNEE 6 m fu/ moved from 01-25 Reason for Visit Left knee pain Osteoarthritis of left knee Osteoarthritis of left knee Internal derangement of left knee Left knee pain H/O coronary artery bypass surgery History of coronary artery stent placement Hyperlipidemia Essential hypertension Chief Complaint LT KNEE PAIN LEFT KNEE 6 m fu/ moved from 01-25 INT LABS/ORDER SCANNED IN Reason for Visit H/O coronary artery bypass surgery History of coronary artery stent placement Hyperlipidemia Essential hypertension Chief Complaint INT LABS/ORDER SCANN ED IN Chief Complaint INT LABS/ORDER SCANN ED IN OESTOPENIA Chief Complaint 8 m fu LEFT ANKLE Xray room 3 E ORDER VARICOSE VIENS hypertension Reason for Visit H/O coronary artery bypass surgery History of coronary artery stent placement Hyperlipidemia Essential hypertension Left ankle pain Left ankle sprain Varicose veins of left leg with edema Chief Complaint E ORDER VARICOSE VIENS hypertension Reason for Visit Varicose veins of le ft leg with edema Chief Complaint FALL Health Concerns Infection Onset Date Last Indicated Resolved Time COVID-19 Rule-Out 09/21/2022 09/21/2022 Infection Onset Date Last Indicated Resolved Time COVID-19 Rule-Out 09/21/2022 09/21/2022 09/22/2022 12:09 AM EDT COVID-19 Confirmed 09/21/2022 09/21/2022 Additional Source Comments INFORMATION SOURCE (unrecogn ized section and content) DATE CREATED AUTHOR 2018 [facility] DATE CREATED AUTHOR AUTHOR'S ORGANIZ ATION 03/03/2020 [facility] DATE CREATED AUTHOR AUTHOR'S ORGANIZ ATION 04/23/2021 [facility] DATE CREATED AUTHOR AUTHOR'S ORGANIZ ATION 06/27/2024 [facility] DATE CREATED AUTHOR AUTHOR'S ORGANIZ ATION 09/08/2024 [facility] Reason for Visit (unrecogniz ed section and content) Reason Comments Medication Refill Reason Comments Results Menopause Thyroid Problem Hypercholesterol Atherosclerosis Status Reason Specialty Diagnoses / Procedures Referre d By Contact Referred To Contact Closed Diagnoses Post-menopausal Procedures BONE DENSITY AXIAL (HIP, PELVIS, SPINE) Diana Thomason MD [address] [place] [address] Reason Comments Abdominal Pain Started last tuesday feels like she has flu Reason Comments Medication Problem Reason Comments GI Problem gastritis Status Reason Specialty Diagnoses / Procedures Re ferred By Contact Referred To Contact Diagnoses Gastroesophageal reflux disease, esophagitis presence not specified Right upper quadrant pain Gastroesophageal reflux disease, esophagitis presence not specified [K21.9] Right upper quadrant pain [R10.11] Procedures AL ESOPHAGOGASTRODUODENOSCOPY TRANSORAL DIAGNOSTIC EGD DIAGNOSTIC Reason Comments New Patient Pre-op Exam Status Reason Specialty Diagnoses / Procedures Referred By Contact Referred To Contact Closed Cardiovascular Medicine Diagnoses Preop cardiovascular exam Dagoberto Gilbert DO [address] [place] [address] Denis Bass DO [address] [place] [address] Reason Comments Preoperative Assessment 02/06/19 Reason Comments Lab Review Hypertension Hypothyroidism Hyperlipidemia Abdominal Pain Reason Comments Diarrhea diarrhea Reason Comments Results Hypertension Thyroid Problem Hyperlipidemia Menopause Reason Comments Results Hypertension Hyperlipidemia Coronary Atherosclerosis Thyroid Problem Status Reason Specialty Diagnoses / Procedures Referre d By Contact Referred To Contact Diagnoses Abdominal pain, right upper quadrant [R10.11] Dagoberto Gilbert DO [address] [place] [address] Reason Comments Error Reason Comments Sore Throat ST, bodyaches, FERNANDO, d amanda, cough and weakness x 5 days Reason Comments Results Care Teams (unrecognized sec tion and content) 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 Adela Harley MD Primary Care Provider Active Team Status: Inactive Member Role Status Dates Dr. Adela Harley MD Primary Care Provider Active Aicha Mena TAPE FOLDING MACHINE OPERATOR, TAPE FOLDING MACHINE OPERATOR-C Attending Provider, Referring P sadaf Active Team Status: Inactive Member Role Status Dates Dr. 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 Adela Harley MD Primary Care Provider, Referrin g Provider Active Aicha Mena TAPE FOLDING MACHINE OPERATOR, TAPE FOLDING MACHINE OPERATOR-C Attending Provider Active Team Status: Inactive Member Role Status Dates Dr. Adela Harley MD Primary Care Provider, Referrin g Provider Active Benito BARRETT, [place] Attending Provider Active Team Status: Inactive Member Role Status Dates Dr. Adela Harley MD Primary Care Provider Active Dr. Josesito Valenzuela MD Attending Provider Active Team Status: Inactive Member Role Status Dates Dr. Adela Harley MD Primary Care Provider, Referrin g Provider Active NENA Saravia Attending Provider Active Team Status: Inactive Member Role Status Dates Dr. Adela Harley MD Primary Care Provider Active Aicha Mena TAPE FOLDING MACHINE OPERATOR, TAPE FOLDING MACHINE OPERATOR-C Attending Provider Active Team Status: Inactive Member Role Status Dates Dr. Adela Harley MD Primary Care Provider Active Dr. Scot Lyle MD Emergency Provider Active Team Status: Inactive Member Role Status Dates Dr. Adela Harley MD Primary Care Provider Active Dr. Scot Lyle MD Attending Provider, Emergency Pro vider Active Team Status: Inactive Member Role Status Dates Dr. Adela Harley MD Primary Care Provider Active Dr. Nick Swenson DO Emergency Provider Active [employer] Animal Caretaker Relationship Specialty Start Date End Date Adela Harley MD [address] [facility] [place] [address] PCP - General Family Medicine 02/02/21 Goals (unrecognized section and content) Goals may be documented in a n alternate sectionGoals may be documented in an alternate sectionGoals may be documented in an alternate sectionGoals may be documented in an alternate sectionGoals may be documented in an alternate sectionGoals may be documented in an alternate sectionGoals may be documented in an alternate sectionGoals may be documented in an alternate sectionGoals may be documented in an alternate sectionGoals may be documented in an alternate section Source Comments (unrecognize d section and content) In the event this informatio n is protected by the Federal Confidentiality of Alcohol and Drug Abuse Patient Records regulations: The Federal rules restrict any use of the information to criminally investigate or prosecute any alcohol or drug abuse patient.[facility] Center[facility] the event this information is protected by the Federal Confidentiality of Alcohol and Drug Abuse Patient Records regulations: The Federal rules restrict any use of the information to criminally investigate or prosecute any alcohol or drug abuse patient.[facility] Center[facility] the event this information is protected by the Federal Confidentiality of Alcohol and Drug Abuse Patient Records regulations: The Federal rules restrict any use of the information to criminally investigate or prosecute any alcohol or drug abuse patient.[facility] FOR RECORDS PERTAINING TO PATIENTS WHO ARE [...] BE BASED ON THE PRIMARY CLINICAL RECORDS. [facility] Stop Being Watched [facility]. provides no warranty or guarantee of the accuracy or completeness of information in this document.
--- NOTE | 2024-12-12 02:36 | EKG12_ITS ---
Test Reason : TIMED Blood Pressure : */* mmHG Vent. Rate : 60 BPM Atrial Rate : 60 BPM P-R Int : 150 ms QRS Dur : 70 ms QT Int : 414 ms P-R-T Axes : 56 -31 62 degrees QTcB Int : 414 ms Normal sinus rhythm Left axis deviation Minimal voltage criteria for LVH, may be normal variant ( R in aVL ) Septal infarct , age undetermined Abnormal ECG When compared with ECG of 11-Dec-2024 18:43, MANUAL COMPARISON REQUIRED DATA IS UNCONFIRMED Confirmed by Khanh Hernandez ([id number]), videotape editor LORRAINE WAYNE ([id number]) on 12/12/2024 10:42:06 AM Referred By: Confirmed By: Khanh Hernandez
[2024-12-12 03:12] LABS: Absolute Lymphocyte Count 1.62 X10^3/uL (0.83-4.51); Absolute Neutrophil Count 7.1 X10^3/uL (2.0-7.7); Basophil# 0.06 X10^3/uL; Basophil% 0.6 % (0-1); Eosinophil# 0.03 X10^3/uL; Eosinophils% 0.3 % (0-5); Hematocrit 38.5 % (37-47); Hemoglobin 13.2 g/dL (12.0-15.0); Lymphocyte # 1.62 X10^3/ul (0.83-4.51); Lymphocyte % 16.4 % (19-41); Mean Corp Hgb Conc 34.3 g/dL (32-36); Mean Corpuscular Hgb 28.6 pg (27.0-32.0); Mean Corpuscular Volume 83.3 fL (81-99); Mean Platelet Vol. 9.7 fl (6.2-12.0); Monocyte# 1.01 X10^3/uL; Monocyte% 10.2 % (0-10); NRBC Flagged by Analyzer 0 % (0-5); Platelet Count 302 K/mm3 (150-450); RBC Distribution Width CV 12.6 % (11.6-14.6); RBC Distribution Width SD 38.2 fl (35.1-43.9); Red Blood Count 4.62 M/mm3 (4.2-5.4); White Blood Count 9.9 K/mm3 (4.4-11.0)
[2024-12-12 03:34] LABS: International Normalized Ratio 0.9; Prothrombin Time (Protime)PT. 12.7 SECONDS (11.7-14.9)
[2024-12-12 03:35] LABS: Partial Thromboplast Time 33.7 Seconds (24.1-36.2)
[2024-12-12 03:42] LABS: ALB/GLOB Ratio 1.4 RATIO (0.9-2.4); AST(SGOT) 31 U/L (<=31); Alanine Aminotransfer ALT/SGPT 13 U/L (<=34); Albumin, Serum 4.6 g/dL (3.4-4.8); Alkaline Phosphatase 63 U/L (35-104); Anion Gap 13 (5-15); BUN 13 mg/dL (4-19); BUN/Creat Ratio 19.3 RATIO (10-20); Calcium,Total 9.8 mg/dL (7.6-11.0); Chloride 93 mmol/L (98-108); Creatinine, Serum 0.68 mg/dL (0.70-1.20); EST Glomerular Filtration Rate 90 (>60); Estimated Creatinine Clearance 39.14 ml/min (50-250); Globulin 3.4 g/dL (2.2-4.2); Glucose 99 mg/dL (70-99); Magnesium 1.9 mg/dL (1.5-2.2); Potassium 4.4 mmol/L (3.3-5.1); Sodium Level 130 mmol/L (133-145); Total Bilirubin 0.83 mg/dL (0.00-1.30)
[2024-12-12] MEDS: Nitroglycerin Infusion 250 ML 3 MG CONT INF (03:49)
[2024-12-12] MEDS: HEPARIN/D5w 25,000 UNITS 25,000 UNITS/250 ML IV.SOLN. 5.5 UNITS CONT INF (03:54)
[2024-12-12] MEDS: Acetaminophen 325 MG Tablet 650 MG PO ×2 (03:59→21:59)
[2024-12-12] MEDS: Levothyroxine 50 MCG Tablet PO (04:01)
[2024-12-12] MEDS: Heparin Injection (Vial) 5,000 UNIT/ML VIAL 3000 UNIT IV (04:01)
--- NOTE | 2024-12-12 05:49 | ECHOD_ITS ---
Reason For Study Reason For Study: CHF Procedure This was a 2D Doppler, Color Flow transthoracic echocardiogram. The study was technically difficult. Due to chest/sternum tenderness, bilateral breast implants, difficulty tolerating probe pressure. Exam performed portable in ICU/CCU. Left Ventricle Normal size and thickness. Posterior and inferior hypokinesis. Estimated LVEF 50%. Stage I diastolic dysfunction. Right Ventricle Normal right ventricle. Atria The left and right atria are normal. Aneurysmal atrial septum. Mitral Valve Trivial mitral valve insufficiency. Tricuspid Valve Normal tricuspid valve. Unable to estimate RV systolic pressure due to inadequate jet, pulmonary artery pressure probably normal. Aortic Valve The aortic valve is not well visualized in the short axis view. Moderately calcified aortic valve. Aortic valve sclerosis without stenosis. Mild to moderate aortic valve regurgitation. Pulmonic Valve The pulmonic valve is not well visualized. Great Vessels Normal sized aortic root. Pericardium/Pleural No pericardial effusion. MMode/2D Measurements & Calculations LVIDd: 3.4 cm IVSd: 0.84 cm Ao root diam: 2.8 cm LVIDs: 2.4 cm LVPWd: 0.89 cm RVDd: 2.6 cm FS: 28.0 % LAV(MOD-bp): 32.4 ml LVAd ap4: 20.5 cm2 SV(MOD-sp4): 34.9 ml LAV(MOD-bp) Indexed: 24.5 ml/m2 LVLd ap4: 6.1 cm SI(MOD-sp4): 26.3 ml/m2 LAV(MOD-sp2): 28.3 ml EDV(MOD-sp4): 56.0 ml LAV(MOD-sp4): 28.2 ml EDV(sp4-el): 57.9 ml LVAs ap4: 11.9 cm2 LVLs ap4: 5.6 cm ESV(MOD-sp4): 21.0 ml ESV(sp4-el): 21.5 ml EF(MOD-sp4): 62.4 % EF(sp4-el): 63.0 % SV(sp4-el): 36.5 ml LA A4 area: 11.7 cm2 LA dimension(2D): 3.2 cm RA A4 area: 9.9 cm2 TAPSE: 1.3 cm Time Measurements MV dec time: 0.27 sec Doppler Measurements & Calculations MV E max josep: 78.3 cm/sec Lat Peak E' Josep: 8.0 cm/sec Med Peak E' Josep: 4.5 cm/sec MV A max josep: 99.6 cm/sec E/E' lat: 9.8 E/E' med: 17.3 MV E/A: 0.79 MV V2 max: 108.7 cm/sec MV P1/2t max josep: 80.8 cm/sec Ao V2 max: 150.6 cm/sec MV max P.7 mmHg MV P1/2t: 68.6 msec Ao max P.1 mmHg MV V2 mean: 52.2 cm/sec Ao V2 mean: 95.1 cm/sec MV mean P.4 mmHg MV dec slope: 345.0 cm/sec2 Ao mean P.2 mmHg MV V2 VTI: 23.7 cm MVA(P1/2t): 3.2 cm2 Ao V2 VTI: 28.9 cm AV (velocity ratio): 0.69 AI max josep: 345.8 cm/sec LV V1 max: 82.6 cm/sec PA V2 max: 100.8 cm/sec AI max P.9 mmHg LV V1 max P.7 mmHg PA V2 mean: 70.1 cm/sec LV V1 mean P.9 mmHg AI dec slope: 196.8 cm/sec2 LV V1 mean: 66.9 cm/sec AI P1/2t: 514.7 msec LV V1 VTI: 19.9 cm ECHO/Echo Complete Interpretation Summary The study was technically difficult with suboptimal images. Posterior and inferior hypokinesis. Estimated LVEF 50%. Stage I diastolic dysfu nction. Aneurysmal atrial septum. Moderately calcified aortic valve. Aortic valve sclerosis without stenosis. Mil d to moderate aortic valve regurgitation. Ordering Physician: Mary Anne Tijerina Referring Physician: Adela Harley Performed By: Natalya Bonds, EDGARD, RVT
[2024-12-12] MEDS: Isosorbide Mononitrate 30 MG Tablet PO (08:17)
[2024-12-12] MEDS: Aspirin 81 MG TAB.CHEW PO (08:17)
[2024-12-12] MEDS: Cholecalciferol (VIT D3) 25 MCG TABLET (1,000 UNITS) 50 MCG PO (08:17)
[2024-12-12] MEDS: Lisinopril 5 MG Tablet 15 MG PO (08:18)
[2024-12-12 08:20] LABS: Cholesterol 169 mg/dL (<=200); High Density Lipoprotein 79 mg/dL; Low Density Lipoprotein Calc. 74 mg/dL; Triglycerides 81 mg/dL; Very Low Density Lipoprotein 16 mg/dL (5-40); cholesterol:hdl ratio screen 2.15
--- NOTE | 2024-12-12 08:46 | PCM.CONS.C ---
Assessment & Plan Assessment/Plan (1) Uncontrolled hypertension: PLAN: Patient's blood pressure is markedly elevated when she admitted to the emergency department at 198/90. It is come under better control with IV nitro she is only on lisinopril 10 mg daily in her home environment. Renal function is normal the patient is intolerant to beta-ajit therapy. She said it made her feel terrible. Would recommend avoiding diuretic therapy given her history of hyponatremia. Following the results of the stress test we will determine the best option for medical therapy for hypertension. (2) Chest pain: QUALIFIERS: Chest pain type: unspecified Qualified Code(s): R07.9 - Chest pain, unspecified PLAN: The chest symptoms sound potentially ischemic in nature. The patient has limited treatment options due to her previous interventions and risk of median sternotomy given her history of breast cancer. Would recommend we proceed with pharmacologic nuclear stress test. If the patient has significant ischemic burden then a left heart catheterization would be indicated. If there is a low level of ischemia I recommend a trial at medical therapy with long-acting nitrates and depending on her echo results potentially low-dose Coreg. If she has completely normal LV function or even LVH would trial amlodipine as an option. Would recommend continuing on lisinopril. (3) Atherosclerosis of coronary artery of [place] heart without angina pectoris: QUALIFIERS: Coronary Disease-Associated Artery/Lesion type: [place] artery Qualified Code(s): I25.10 - Atherosclerotic heart disease of [place] coronary artery without angina pectoris PLAN: Patient is status post 3 interventions in the past she had an initial stent to the LAD and then subsequently underwent AUGUSTINE graft to the LAD by minimally invasive thoracotomy. She subsequently underwent complex stenting of the right coronary artery with shockwave balloon therapy due to heavy calcification in 2020. She also had a moderate lesion in the OM branch of the circumflex which had a negative FFR and has been treated medically. Given her minimal enzyme changes troponin 18, 23, 25, would recommend that we proceed with pharmacologic nuclear stress test to define the amount of ischemic myocardium. Pending the outcome of that stress test further recommendations will be forthcoming. (4) Hyperlipidemia: QUALIFIERS: Hyperlipidemia type: pure hypercholesterolemia Qualified Code(s): E78.00 - Pure hypercholesterolemia, unspecified PLAN: Patient's lipids done on this admission total cholesterol was 169 triglycerides 81 LDL 74 HDL 79. The patient is currently on simvastatin 10 mg daily. Given her HDL of 79 the LDL of 74 appears to be acceptable in this 79-year-old. (5) Breast cancer: QUALIFIERS: Breast location: unspecified site of breast Estrogen receptor status: unspecified Patient sex: female Laterality: bilateral Qualified Code(s): C50.911 - Malignant neoplasm of unspecified site of right female breast; C50.912 - Malignant neoplasm of unspecified site of left female breast PLAN: Patient status post remote bilateral mastectomies and bilateral breast implants. It is unknown whether she received radiation therapy. PLAN: Plan 1. Recommend pharmacologic nuclear stress test. 2. Discontinue IV heparin and IV nitroglycerin. 3. Will start Imdur 30 mg daily this morning. 4. Further recommendations pending the results of the pharmacologic nuclear stress test. HPI Consult Data Date of Consult: 12/12/24 HPI Narrative Reason for Consultation: Chest pain with known coronary artery disease HPI Narrative: BEN ARROYO, is a 79 F who presents with several days of chest discomfort that have been progressive the symptoms occur with exertion and resolved with activity. She is also noted increasing fatigue and the symptoms appear to be worse than what she has had in the past with her anginal symptoms. The patient's ECG in the emergency department showed normal sinus rhythm at 71 bpm with PACs she had left axis deviation and a possible old septal DC with no acute ischemic changes. Troponins were essentially negative at 18, 23, and 25. The patient does have a long history of coronary artery disease in 1998 she underwent minimally invasive AUGUSTINE to the LAD due to bilateral breast implants status postmastectomy for breast cancer. It is unknown whether the patient had radiation therapy to her mediastinum. The patient subsequently in 2020 had a catheterization done which showed a patent AUGUSTINE to the LAD and significant disease in the heavily calcified dominant right coronary artery. There was moderate disease in the circumflex. Patient was transferred to [facility] where she went shockwave balloon therapy and overlapping stents to the dominant right coronary artery. An IFR of the circumflex was negative and it was treated medically. Echocardiogram prior to that intervention January 2021 showed an EF of 55% 1+ TR pulmonary artery systolic pressure was 28. Patient also carries a history of hypertension and her blood pressure was severely elevated in the emergency department at 198/90. She also has a history of chronic hyponatremia and sodium runs in the 128 range. She also has a history of hyperlipidemia. The patient was admitted placed on IV nitro and heparin. She has had no recurrence of her chest symptoms. Patient's blood pressures come under better control at 135/69. The patient is not allergic to contrast and her renal function is normal. [facility] Medical History Unstable angina Breast cancer Osteopenia Hiatal hernia Osteoarthritis IBS (irritable bowel syndrome) History of hepatitis A Anemia Atherosclerosis of coronary artery of [place] heart without angina pectoris Essential hypertension GERD (gastroesophageal reflux disease) Anxiety Arthritis Hyperlipidemia Hypothyroidism Home Medications ?Medication ?Instructions ?Recorded ?Last Taken ?Type aspirin 81 mg chewable tablet 81 mg PO DAILY@0800 heart 05/30/20 01/26/21 History estradiol 0.01% (0.1 mg/gram) 1 ea vaginal WE supplement 05/30/20 05/28/20 History vaginal cream estradiol 0.5 mg tablet 0.5 mg PO QHS 12/22/20 Unknown History nitroglycerin 0.4 mg sublingual 0.4 mg sublingual Q5M PRN chest 08/02/22 Unknown Rx tablet pain #25 tabs flaxseed oil 1,000 mg capsule 1,000 mg PO DAILY 11/01/23 Unknown History simvastatin 10 mg tablet 10 mg PO DAILY #90 tabs 02/03/24 Unknown Rx lisinopril 10 mg tablet See Rx Instructions .Route 03/12/24 Unknown Rx .COMPLEX #135 tabs cholecalciferol (vitamin D3) 50 50 mcg PO QDAY supplement 05/08/24 Unknown History mcg (2,000 unit) capsule cranberry fruit 400 mg capsule 400 mg PO DAILY 05/08/24 Unknown History levothyroxine 50 mcg tablet 50 mcg PO DAILY 12/11/24 Unknown History Allergy/AdvReac Type Severity Reaction Status Date / Time lactose AdvReac Upset Verified 12/11/24 18:34 Stomach metoprolol AdvReac dizziness Verified 12/11/24 18:34 Penicillins AdvReac Hives Verified 12/11/24 18:34 Family History Sister Breast cancer Grandmother Breast cancer Father CVA (cerebral vascular accident) Myocardial infarction Mother Parkinson's disease Brother Seizures CVA (cerebral vascular accident) Surgical History History of coronary artery stent placement (02/03/21) H/O coronary artery bypass surgery (06/16/99) History of left heart catheterization (01/26/21) History of bilateral breast implants History of shoulder surgery History of hammer toe correction History of bunionectomy History of cholecystectomy History of cataract surgery History of bilateral mastectomy History of right knee surgery History of hysterectomy Social History Smoking Status: Never smoker alcohol intake: never substance use type: does not use what type of physical activity do you participate in: walking frequency: 5-6 times per week ROS ROS Narrative Patient has a very flat affect. She is resting comfortably in recumbent position in bed in no apparent distress Constitutional Constitutional: Reports as per HPI Eyes Eyes: Reports systems reviewed and no addt'l complaints, except as documented ENT HEENT: Reports systems reviewed and no addt'l complaints, except as documented Cardiovascular Cardiovascular: Reports as per HPI Respiratory/Chest Respiratory/Chest: Reports as per HPI Gastrointestinal Gastrointestinal: Reports systems reviewed and no addt'l complaints, except as documented Genitourinary Genitourinary: Reports systems reviewed and no addt'l complaints, except as documented Musculoskeletal Musculoskeletal: Reports systems reviewed and no addt'l complaints, except as documented Integumentary Integumentary: Reports systems reviewed and no addt'l complaints, except as documented Neurologic Neurologic: Reports systems reviewed and no addt'l complaints, except as documented Psychiatric Psychiatric: Reports systems reviewed and no addt'l complaints, except as documented Endocrine Endocrinology: Reports systems reviewed and no addt'l complaints, except as documented Hematologic/Lymphatic Hematologic/Lymphatic: Reports systems reviewed and no addt'l complaints, except as documented Allergic/Immunologic Allergic/Immunologic: Reports as per HPI Physical Exam Const alert and oriented x3 HEENT normocephalic Eyes EOMs intact bilaterally Neck no JVD and no carotid bruits Chest Chest Narrative: Bilateral breast implants. Resp normal respiratory effort and clear to auscultation bilaterally Cardio Rate: regular rate Rhythm: regular rhythm Heart Sounds: S1 normal and S2 normal; Negative for click, gallop or murmur Peripheral Pulses: radial pulses present bilateral 2+ and posterior tibial pulses present bilateral 2+ GI normal to inspection, nondistended, normoactive bowel sounds Extremity no pedal edema Neuro Neuro Narrative: Alert and oriented x 3 Psych mental status grossly normal Risk Stratification Risk Stratification Applicable: Yes Age >/= 65: Yes >/= 3 CAD Risk Factors (HTN, HLD, DM, family hx of CAD, or current smoker): Yes Aspirin Use in the Past 7 Days: Yes Severe Angina (>/= episodes in 24 hours): No EKG ST Changes >/= 0.5mm: No Positive Cardiac Marker: Yes ALEX Risk Stratification Score: 4 ALEX % Risk: 20% Risk Charges/Coding Visit Charges Inpatient E&M: 66974 Init Hosp L3 Objective Data Vital Signs: Vital Signs Temp Pulse Resp BP Pulse Ox O2 Del Method 97.4 F L 64 14 135/69 H 99 Room Air 12/12/24 02:40 12/12/24 07:35 12/12/24 07:00 12/12/24 07:00 12/12/24 08:16 12/12/24 08:16 Oxygen Delivery Method Room Air Weight: 92 lb 13.034 oz Body Mass Index (BMI) 18.4 Intake & Output: Intake and Output for Last 24 Hours 12/10/24 12/11/24 12/12/24 23:59 23:59 23:59 Intake Total 38.74 / 38.74 Balance 38.74 / 38.74 Lab / Micro Data Attestation: I reviewed the patient's lab results. 12/12/24 02:55 12/12/24 02:55 Labs: Laboratory Results - last 24 hr 12/11/24 19:00: WBC 10.0, RBC 4.12 L, Hgb 11.8 L, Hct 35.0 L, MCV 85.0, MCH 28.6, MCHC 33.7, RDW Std Deviation 39.3, RDW Coeff of Niya 12.7, Plt Count 282, MPV 10.2, Immature Gran % (Auto) 0.500, Neut % (Auto) 72.9 H, Lymph % (Auto) 15.3 L, Band[place] % (Auto) 10.2 H, Eos % (Auto) 0.5, Baso % (Auto) 0.6, Absolute Neuts (auto) 7.3, Absolute Lymphs (auto) 1.53, Nucleated RBC % 0, Sodium 128 L, Potassium 4.1, Chloride 92 L, Carbon Dioxide 24.6, Anion Gap 12, BUN 18, Creatinine 0.74, Estim Creat Clear Calc 41.28 L, Est GFR (MDRD) Non-Af 84, BUN/Creatinine Ratio 24.0 H, Glucose 154 H, Calcium 9.5, Troponin T High Sens 18 H 12/11/24 20:58: Troponin T Hi Sens 2 Hr 23 H 12/11/24 22:46: Troponin T Hi Sens 4Hr 25 H 12/12/24 02:55: WBC 9.9, RBC 4.62, Hgb 13.2, Hct 38.5, MCV 83.3, MCH 28.6, MCHC 34.3, RDW Std Deviation 38.2, RDW Coeff of Niya 12.6, Plt Count 302, MPV 9.7, Immature Gran % (Auto) 0.500, Neut % (Auto) 72.0 H, Lymph % (Auto) 16.4 L, [place] % (Auto) 10.2 H, Eos % (Auto) 0.3, Baso % (Auto) 0.6, Absolute Neuts (auto) 7.1, Absolute Lymphs (auto) 1.62, Nucleated RBC % 0, PT 12.7, INR 0.9, APTT 33.7, Sodium 130 L, Potassium 4.4, Chloride 93 L, Carbon Dioxide 24.0, Anion Gap 13, BUN 13, Creatinine 0.68 L, Estim Creat Clear Calc 39.14 L, Est GFR (MDRD) Non-Af 90, BUN/Creatinine Ratio 19.3, Glucose 99, Calcium 9.8, Phosphorus 3.0, Magnesium 1.9, Total Bilirubin 0.83, AST 31, ALT 13, Alkaline Phosphatase 63, Total Protein 8.0, Albumin 4.6, Globulin 3.4, Albumin/Globulin Ratio 1.4, Triglycerides 81, Cholesterol 169, LDL Cholesterol, Calc 74, VLDL Cholesterol 16, HDL Cholesterol 79, Cholesterol/HDL Ratio 2.15, TSH 3.690 Rhythm Strip Rhythm Strip: Sinus Rhythm Rate: 68 Cardiology Labs/Tests 12/11/24 19:00: WBC 10.0, RBC 4.12 L, Hgb 11.8 L, Hct 35.0 L, MCV 85.0, MCH 28.6, MCHC 33.7, Plt Count 282, MPV 10.2, Immature Gran % (Auto) 0.500, Neut % (Auto) 72.9 H, Lymph % (Auto) 15.3 L, [place] % (Auto) 10.2 H, Eos % (Auto) 0.5, Baso % (Auto) 0.6, Absolute Neuts (auto) 7.3, Nucleated RBC % 0, Sodium 128 L, Potassium 4.1, Chloride 92 L, Carbon Dioxide 24.6, Anion Gap 12, BUN 18, Creatinine 0.74, Est GFR (MDRD) Non-Af 84, BUN/Creatinine Ratio 24.0 H, Glucose 154 H, Calcium 9.5 12/12/24 02:55: WBC 9.9, RBC 4.62, Hgb 13.2, Hct 38.5, MCV 83.3, MCH 28.6, MCHC 34.3, Plt Count 302, MPV 9.7, Immature Gran % (Auto) 0.500, Neut % (Auto) 72.0 H, Lymph % (Auto) 16.4 L, [place] % (Auto) 10.2 H, Eos % (Auto) 0.3, Baso % (Auto) 0.6, Absolute Neuts (auto) 7.1, Nucleated RBC % 0, PT 12.7, INR 0.9, APTT 33.7, Sodium 130 L, Potassium 4.4, Chloride 93 L, Carbon Dioxide 24.0, Anion Gap 13, BUN 13, Creatinine 0.68 L, Est GFR (MDRD) Non-Af 90, BUN/Creatinine Ratio 19.3, Glucose 99, Calcium 9.8, Phosphorus 3.0, Magnesium 1.9, Total Bilirubin 0.83, Triglycerides 81, Cholesterol 169, VLDL Cholesterol 16, HDL Cholesterol 79, Cholesterol/HDL Ratio 2.15 Rhythm: EKG: ECHO: Stress Test: Cardiac Cath: PCI: CT Surgery: Holter monitor: EPS: PPM: CXR: Chest CT Scan: Radiography Diagnostic Testing: Radiology Impression Chest X-Ray 12/11/24 19:15 IMPRESSION: No acute cardiopulmonary abnormalities. Reading Location: [place] [id number]
--- NOTE | 2024-12-12 09:45 | CASEMGMT ---
Tertiary Insurance review for hospitals In-network with [facility] insurance if transfer is recommended is as follows: [facility], [facility], [place], [facility], [facility], [facility], and . Thelma Harrison, Discharge Planning Asst.
--- NOTE | 2024-12-12 12:30 | STRESSREP ---
Stress Test Report Date: 12/12/2024 Procedure: Pharmacologic stress nuclear imaging study Indications: Chest pain Consent: Per the patient Procedure: The patient underwent pharmacologic (Regadenoson 0.4mg ) evaluation with a peak heart rate of 112 beats per minute (78%predicted maximal heart rate) and a peak blood pressure of 132/70 mmHg. The baseline ECG demonstrated sinus rhythm. The peak pharmacologic ECG did not show any ischemic changes however 10 minutes into recovery, patient had downsloping inferior ST depressions with chest pain. There were no cardiac dysrhythmias pretest, during pharmacologic infusion, or recovery. Patient had chest discomfort during pharmacologic infusion and in recovery. The patient was injected with 11.0 millicuries of technetium 99m Cardiolite and subsequently rest SPECT Cardiolite nuclear imaging was obtained in the horizontal long, vertical long, and short axis views. The patient underwent pharmacologic (Regadenoson) evaluation. The patient was injected with 34.7 millicuries of technetium 99m Cardiolite and subsequently stress SPECT Cardiolite nuclear imaging was obtained in the horizontal long, vertical long, and short axis views. A gated Cardiolite study at peak stress was obtained. The examination was stopped secondary to completion of protocol. Rest and stress SPECT Cardiolite nuclear imaging status post realignment, normalization, and attenuation correction demonstrate moderate size reversible perfusion defect of the anterior wall suggestive of moderate ischemia. There is end systolic thickening and brightening. The gated Cardiolite study demonstrates myocardial thickening and inward wall motion. The reported LVEF is 83%. Impression: 1. Pharmacologic (Regadenoson) evaluation 2. Peak pharmacologic ECG with no ischemic changes however patient had inferior ST depressions with chest pain 10 minutes into recovery, suggestive of ischemia. 3. There were no cardiac dysrhythmias pretest, during pharmacologic infusion, or recovery. 5. Moderate size reversible perfusion defect of the anterior wall suggestive of moderate ischemia. 6. The gated Cardiolite study reports an LVEF of 83%. This note was generated with [employer] software. It may contain incorrect words, spelling, and punctuation that were not noted in checking the note before signing.
--- NOTE | 2024-12-12 13:15 | CHAPLAIN ---
Type of Pastoral Visit _x__ Initial Visit ___ Follow-up Visit ___ On-call Visit ___ General Patient Visit ___ Spiritual Assessment ___ Family Conference ___ Bereavement ___ Rapid Response ___ Code Blue ___ Other (describe below) Pastoral Care Referral From _x__ Patient ___ Family ___ Nurse ___ Physician ___ Copy Operator ___ [place] ___ Other (describe below) Sacrament/Intervention _x__ Active listening ___ Anointing ___ Lutheran ___ Bereavement ___ Communion ___ Sophy exploration ___ ___ Life review _x__ Prayer ___ Reconciliation ___ Sacrament of Sick _x__ Supportive presence ___ Wedding ___ Other (describe below) Pastoral Comments patient had a difficult morning with a rapid response; pt is seen in ICU and is resting quietly with a daughter at bedside; pt admits that she probably should have come to the hospital earlier, but I just didn't want to be here; pt is expecting to go through more testing; pt acknowledges some anxiety and yet refers to her sophy in God as what is most helpful; pt agrees that a prayer would be very needed and welcomed; sat at bedside to give comforting words and presence
--- NOTE | 2024-12-12 14:08 | CASEMGMT ---
Met with patient to complete ROSARIO form. ROSARIO form and its content were verbally explained and patient's questions were answered to the best of my ability.? Patient voiced understanding and signed ROSARIO form.? Patient provided a copy of signed ROSARIO form and original placed in patient's chart.? Patient had no further questions. Thelma Harrison, Discharge Planning Asst
--- NOTE | 2024-12-12 18:20 | PCM.HOSP.N ---
Hospitalist Note Patient was seen and examined briefly today, she underwent a resting nuclear stress test today which was positive for reversible ischemia. She will undergo a cardiac catheterization tomorrow. I talked with cardiology today about her care. Patient had a vasovagal episode after she was given some nitroglycerin when she had chest pain shortly after her stress test today, patient was given a half a milligram of atropine IV and IV fluid and recovered from the event.
[2024-12-12] MEDS: Atorvastatin Calcium 10 MG Tablet 5 MG PO (21:48)
[2024-12-12] MEDS: Estradiol 0.5 MG Tablet PO (21:49)
[2024-12-13] VITALS (13 sets, daily range): BP systolic 104–157; BP diastolic 61–117; PULSE 57–83; RESP 11–18; TEMP 36.1–37.1; O2SAT 97–99
[2024-12-13 03:50] LABS: Absolute Lymphocyte Count 1.62 X10^3/uL (0.83-4.51); Absolute Neutrophil Count 8.3 X10^3/uL (2.0-7.7); Basophil# 0.05 X10^3/uL; Basophil% 0.4 % (0-1); Eosinophil# 0.06 X10^3/uL; Eosinophils% 0.5 % (0-5); Hematocrit 32.8 % (37-47); Hemoglobin 11.2 g/dL (12.0-15.0); Lymphocyte # 1.62 X10^3/ul (0.83-4.51); Mean Corp Hgb Conc 34.1 g/dL (32-36); Mean Corpuscular Hgb 28.9 pg (27.0-32.0); Mean Corpuscular Volume 84.5 fL (81-99); Mean Platelet Vol. 9.9 fl (6.2-12.0); Monocyte# 1.46 X10^3/uL; Monocyte% 12.6 % (0-10); NRBC Flagged by Analyzer 0 % (0-5); Neutrophil # 8.33 X10^3/uL (2.7-7.7); Neutrophil % 72.2 % (47-70); Platelet Count 269 K/mm3 (150-450); RBC Distribution Width SD 39.3 fl (35.1-43.9); Red Blood Count 3.88 M/mm3 (4.2-5.4); White Blood Count 11.6 K/mm3 (4.4-11.0)
[2024-12-13 04:10] LABS: Prothrombin Time (Protime)PT. 13.3 SECONDS (11.7-14.9)
[2024-12-13 04:14] LABS: Anion Gap 13 (5-15); BUN 15 mg/dL (4-19); BUN/Creat Ratio 25.1 RATIO (10-20); Calcium,Total 8.9 mg/dL (7.6-11.0); Carbon Dioxide 19.2 mmol/L (21.0-32.0); Chloride 97 mmol/L (98-108); Creatinine, Serum 0.61 mg/dL (0.70-1.20); EST Glomerular Filtration Rate 92 (>60); Estimated Creatinine Clearance 39.14 ml/min (50-250); Glucose 83 mg/dL (70-99); Potassium 3.9 mmol/L (3.3-5.1); Sodium Level 129 mmol/L (133-145)
[2024-12-13] MEDS: Levothyroxine 50 MCG Tablet PO (05:05)
--- NOTE | 2024-12-13 09:08 | PCM.PN.CARD ---
Subjective Subjective Patient's nuclear stress test was consistent with ischemia of the anterior wall. Given her known LAD disease and previous AUGUSTINE the LAD surgical intervention a left heart catheterization was recommended and will be performed this morning. Objective Data Vital Signs: Vital Signs Temp Pulse Resp BP Pulse Ox O2 Del Method O2 Flow Rate 98.3 F 62 14 107/90 H 98 Room Air 2 12/13/24 07:41 12/13/24 07:41 12/13/24 07:41 12/13/24 07:41 12/13/24 07:41 12/13/24 07:41 12/12/24 19:29 Oxygen Flow Rate (L/min) 2 Oxygen Delivery Method Room Air Weight: 92 lb 13.034 oz Body Mass Index (BMI) 18.4 Intake & Output: Intake and Output for Last 24 Hours 12/11/24 12/12/24 12/13/24 23:59 23:59 23:59 Intake Total 398.74 / 398.74 120 / 120 Output Total 560 / 560 Balance 398.74 / 398.74 -440 / -440 Lab / Micro Data 12/13/24 03:39 12/13/24 03:39 Labs: Laboratory Results - last 24 hr 12/13/24 03:39: WBC 11.6 H, RBC 3.88 L, Hgb 11.2 L, Hct 32.8 L, MCV 84.5, MCH 28.9, MCHC 34.1, RDW Std Deviation 39.3, RDW Coeff of Niya 13.0, Plt Count 269, MPV 9.9, Immature Gran % (Auto) 0.300, Neut % (Auto) 72.2 H, Lymph % (Auto) 14.0 L, [place] % (Auto) 12.6 H, Eos % (Auto) 0.5, Baso % (Auto) 0.4, Absolute Neuts (auto) 8.3 H, Absolute Lymphs (auto) 1.62, Nucleated RBC % 0, PT 13.3, INR 1.0, Sodium 129 L, Potassium 3.9, Chloride 97 L, Carbon Dioxide 19.2 L, Anion Gap 13, BUN 15, Creatinine 0.61 L, Estim Creat Clear Calc 39.14 L, Est GFR (MDRD) Non-Af 92, BUN/Creatinine Ratio 25.1 H, Glucose 83, Calcium 8.9 Rhythm Strip Rhythm Strip: Sinus Rhythm Rate: 62 Cardiology Labs/Tests 12/13/24 03:39: WBC 11.6 H, RBC 3.88 L, Hgb 11.2 L, Hct 32.8 L, MCV 84.5, MCH 28.9, MCHC 34.1, Plt Count 269, MPV 9.9, Immature Gran % (Auto) 0.300, Neut % (Auto) 72.2 H, Lymph % (Auto) 14.0 L, [place] % (Auto) 12.6 H, Eos % (Auto) 0.5, Baso % (Auto) 0.4, Absolute Neuts (auto) 8.3 H, Nucleated RBC % 0, PT 13.3, INR 1.0, Sodium 129 L, Potassium 3.9, Chloride 97 L, Carbon Dioxide 19.2 L, Anion Gap 13, BUN 15, Creatinine 0.61 L, Est GFR (MDRD) Non-Af 92, BUN/Creatinine Ratio 25.1 H, Glucose 83, Calcium 8.9 Rhythm: EKG: ECHO: Stress Test: Cardiac Cath: PCI: CT Surgery: Holter monitor: EPS: PPM: CXR: Chest CT Scan: Radiography Diagnostic Testing: Radiology Impression Echocardiogram 12/12/24 05:49 Interpretation Summary The study was technically difficult with suboptimal images. Posterior and inferior hypokinesis. Estimated LVEF 50%. Stage I diastolic dysfunction. Aneurysmal atrial septum. Moderately calcified aortic valve. Aortic valve sclerosis without stenosis. Mild to moderate aortic valve regurgitation. Ordering Physician: Mary Anne Tijerina Referring Physician: Adela Harley Performed By: Natalya Bonds, EDGARD, RVT Physical Exam Narrative Tiny white female. Const alert and oriented x3 HEENT normocephalic Eyes EOMs intact bilaterally Neck no JVD Resp normal respiratory effort and clear to auscultation bilaterally Cardio Rate: regular rate Rhythm: regular rhythm Heart Sounds: S1 normal and S2 normal; Negative for click, gallop or murmur Peripheral Pulses: radial pulses present right 1+ and left 2+ and femoral pulses present right (Bruit auscultated) 1+ and left 2+ Extremity no pedal edema Neuro Neuro Narrative: Alert and oriented x 3 Psych mental status grossly normal Assessment & Plan Assessment/Plan (1) Uncontrolled hypertension: PLAN: Patient's blood pressures come under excellent control since hospitalization on her current medical therapy. (2) Chest pain: QUALIFIERS: Chest pain type: unspecified Qualified Code(s): R07.9 - Chest pain, unspecified PLAN: Patient is chest discomfort has been somewhat atypical her enzymes were fairly positive but her Cardiolite stress test showed anterior ischemia on the nuclear pharmacologic test. The patient does have prominent breast implants but given the patient's chest symptoms, her enzymes, and her past medical history left heart catheterization was recommended and will be performed today. Further recommendations pending the outcome of the catheterization. Addendum patient's catheterization revealed a widely patent AUGUSTINE graft to the LAD. The circumflex lesion appeared identical to the old cath spam and at that time her FFR was negative. She did have a new restenotic disease in the ostium of the right coronary which was treated with shockwave balloon and subsequent in-stent restenosis stenting. The patient tolerated procedure well she should be able to be discharged to home in the next 24 hours. (3) Atherosclerosis of coronary artery of torres martinez heart without angina pectoris: QUALIFIERS: Coronary Disease-Associated Artery/Lesion type: [place] artery Qualified Code(s): I25.10 - Atherosclerotic heart disease of [place] coronary artery without angina pectoris PLAN: Patient is status post 3 interventions in the past she had an initial stent to the LAD and then subsequently underwent AUGUSTINE graft to the LAD by minimally invasive thoracotomy. She subsequently underwent complex stenting of the right coronary artery with shockwave balloon therapy due to heavy calcification in 2020. She also had a moderate lesion in the OM branch of the circumflex which had a negative FFR and has been treated medically. Pharmacologic stress test revealed anterior ischemia changes and a left heart catheterization is pending at this time. PLAN: Plan 1. Patient will be continued on dual antiplatelet therapy uninterrupted for 1 year. She now has multiple stents in this right coronary artery that are overlapping. 2. Patient should be able to be discharged to home in the next 24 hours. 3. 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 4. Given the patient's HDL of 79 which is higher than her LDL of 74 I feel she should be continued on her home dose of simvastatin. Charges/Coding Visit Charges Inpatient E&M: 16840 Subs Hosp L3
[2024-12-13] MEDS: Acetaminophen 325 MG Tablet 650 MG PO ×2 (11:36→17:59)
[2024-12-13] MEDS: 0.9% Normal Saline (1000mL) 1,000 ML 150 ML IV (12:34)
[2024-12-13 12:42] LABS: ACT Activated Clotting Time 285 sec (74-137)
[2024-12-13 12:42] LABS: ACT Activated Clotting Time 291 sec (74-137)
--- NOTE | 2024-12-13 13:15 | NURSING ---
Pt did not want to use the purwick and had to urinate. Okay to walk to bathroom per Ida GERMAN. Pt assisted into bathroom at this time.
--- NOTE | 2024-12-13 13:30 | CRPHASE1_ITS ---
Patient Communication Patient Information Former Patient:: Phase I and Phase II PHII Cardiac Rehab Discussed with Patient:: Yes Guide to Cardiac Rehab Given to Patient:: Yes Cardiac Rehab Facility Choice List Given to Patient:: Yes Communication to Cardiac Rehab Choice Program [facility] PHII:: Communication Given to CR Thermodynamics Engineer:: Sukumar Saldaña Phase II Cardiac Rehab:: Yes Sessions:: 36 sessions - 3 days/wk, 12 weeks Cardiac Rehabilitation Info Program Information Cardiac Rehabilitation Program Information: Cardiac Rehab The cardiac rehab team at [facility] consists of highly skilled exercise physiologists, nurses, respiratory therapists and physicians working together with you. Our purpose is to help you have a full recovery and achieve the goals you set for yourself. Over the years many of our patients have returned to activities they assumed they would never do again! We can help restore your confidence and motivation to make lifestyle changes that can have a significant impact on your health and quality of life! We can help answer questions and concerns you may have about exercise, lifestyle, medications, diet, stress and anxiety which are common following a hospitalization. WE monitor ECG and vital signs during exercise and discuss your progress with you and report to your physician(s). Cardiac Rehab is proven to help reduce readmissions, improve functional capacity and lower recurrence of problems with your heart. Our Cardiac Rehab program is Certified by the [place] [employer] of Cardio-Vascular and Pulmonary Rehabilitation (AACVPR) and Accredited by the [place] [employer] through our [facility]. You can contact us at . We invite you to call us with your questions or to get started in our program. If you have other questions or concerns be sure to ask your physician/provider during your follow-up visit. WE look forward to seeing you!
--- NOTE | 2024-12-13 13:31 | CRPH1.INST_ITS ---
General Education Discussed with Patient CAD and cardiac anatomy and function:: Patient communicates acknowledgment Explanation of diagnoses and procedures:: Patient communicates acknowledgment Sign/Symptoms of CA:: Patient communicates acknowledgment Antiplatelet therapy: Patient communicates acknowledgment Proper use of NTG-SL: Patient communicates acknowledgment Emergency procedures and activation of EMS: Patient communicates acknowledgment Compliance of all prescribed medications: Patient communicates acknowledgment Smoking Risk Factors Patient Nicotine/Smoking Risk Factors Are:: Never smoked Dyslipidemia Risk Factors Patient Dyslipidemia Risk Factors Are:: Total Cholesterol, Triglycerides, HDL and LDL Recommendations Recommendations Include:: Lipid profile not available, Reviewed NCEP/ATP guidelines and Therapeutic Lifestyle Change dietary guidelines Response Code Dyslipidemia Response Code:: Patient communicates acknowledgment Overweight/Obesity Risk Factors Patient Overweight/Obesity Risk Factors Are:: BMI Normal [24-29 & > 65 years old ] Recommendations Recommendations Include:: Weight loss of 5-10%, Reduced calorie diet and Exercise 5-7 times/week Response Code Overweight/Obesity:: Patient communicates acknowledgment Hypertension Recommendations Recommendations Include:: Maintain BP <130/85, DASH dietary guidelines, Decrease/maintain normal body weight and Moderation of ETOH Response Code Hypertension:: Patient communicates acknowledgment Diabetes Risk Factors Patient Diabetes Risk Factors Are:: No documented hx of diabetes Metabolic Syndrome Recommendations Recommendations Include:: Does not meet criteria Sedentary Risk Factors Patient Sedentary Risk Factors Are:: Lack of regular exercise Recommendations Recommendations Include:: Aerobic exercise 5-7 times/week for 20-30 minutes continuously, Benefits of regular exercise, Discussed home walking program and Monitored Outpatient Cardiac Rehab Response Code Sedentary Response Code:: Patient communicates acknowledgment Stress Recommendations Recommendations Include:: Identification of stressors, and assessment of coping skills and Stress management techniques Response Code Stress Response Code:: Patient communicates acknowledgment
[2024-12-13] MEDS: Atropine Sulfate 1 MG/10 ML Syringe 0.5 MG IV (14:32)
[2024-12-13] MEDS: 0.9% Normal Saline 500 ML IV.SOLN. IV (14:35)
[2024-12-13] MEDS: Clopidogrel Bisulfate 300 MG Tablet PO (16:30)
--- NOTE | 2024-12-13 18:11 | NURSING ---
TR band taken off at this time. 2x2 gauze and opsite applied over site. Ida Adame aware.
--- NOTE | 2024-12-13 18:45 | PCM.PN.HOSP ---
Reason for Visit Reason for Visit: Diagnoses Malignant neoplasm of unspecified site of right female breast (12/12/24) Malignant neoplasm of unspecified site of left female breast (12/12/24) Pure hypercholesterolemia, unspecified (12/12/24) Essential (primary) hypertension (12/12/24) Atherosclerotic heart disease of [place] coronary artery without angina pectoris (12/12/24) Chest pain, unspecified (12/12/24) Other specified abnormal findings of blood chemistry (12/12/24) Subjective Subjective Patient was seen and examined today, she underwent a coronary angiogram today with insertion of a CARLENE in the right coronary artery and lithotripsy in the right coronary artery. Objective Data Objective Data Vital Signs: Vital Signs Temp Pulse Resp BP Pulse Ox O2 Del Method O2 Flow Rate 98.7 F 83 16 157/67 H 99 Room Air 2 12/13/24 16:42 12/13/24 16:42 12/13/24 16:42 12/13/24 16:42 12/13/24 16:42 12/13/24 16:42 12/12/24 19:29 Oxygen Flow Rate (L/min) 2 Oxygen Delivery Method Room Air Weight: 42.1 kg Body Mass Index (BMI) 18.4 Intake & Output: Intake and Output for Last 24 Hours 12/11/24 12/12/24 12/13/24 23:59 23:59 23:59 Intake Total 398.74 / 398.74 1240 / 1240 Output Total 560 / 560 Balance 398.74 / 398.74 680 / 680 Lab / Micro Data 12/13/24 03:39 12/13/24 03:39 Labs: Laboratory Results - last 24 hr 12/13/24 03:39: WBC 11.6 H, RBC 3.88 L, Hgb 11.2 L, Hct 32.8 L, MCV 84.5, MCH 28.9, MCHC 34.1, RDW Std Deviation 39.3, RDW Coeff of Niya 13.0, Plt Count 269, MPV 9.9, Immature Gran % (Auto) 0.300, Neut % (Auto) 72.2 H, Lymph % (Auto) 14.0 L, [place] % (Auto) 12.6 H, Eos % (Auto) 0.5, Baso % (Auto) 0.4, Absolute Neuts (auto) 8.3 H, Absolute Lymphs (auto) 1.62, Nucleated RBC % 0, PT 13.3, INR 1.0, Sodium 129 L, Potassium 3.9, Chloride 97 L, Carbon Dioxide 19.2 L, Anion Gap 13, BUN 15, Creatinine 0.61 L, Estim Creat Clear Calc 39.14 L, Est GFR (MDRD) Non-Af 92, BUN/Creatinine Ratio 25.1 H, Glucose 83, Calcium 8.9 12/13/24 08:57: Activated Clotting Time 285 H 12/13/24 09:59: Activated Clotting Time 291 H Rhythm Strip Rhythm Strip: Sinus Rhythm Rate: 62 Physical Exam Const alert, oriented x3 and no apparent distress General Appearance: cooperative, well kempt and well developed Orientation / Consciousness: awake, oriented to person, oriented to place and oriented to time HEENT normocephalic, head/scalp atraumatic and moist oral mucous membranes Eyes PERRL, EOMs intact bilaterally and conjunctivae normal Neck supple, no JVD, thyroid normal and no carotid bruits General: trachea midline Resp normal respiratory effort, no retractions, no use of accessory muscles and clear to auscultation bilaterally Auscultation: Negative for rales, rhonchi or wheezes Cardio regular rate, regular rhythm, S1 normal heart sound, S2 normal heart sound, no murmurs, no rub and no gallops GI normal to inspection, nondistended, normoactive bowel sounds, soft to palpation, non-tender and non-distended Extremity no clubbing, cyanosis or edema Skin no rashes or lesions noted General Skin Exam: no breakdown Neuro oriented x3, CN's II-XII intact bilaterally, no focal motor deficits and no sensory deficits noted Sensorium / Orientation: awake and alert Speech: speech normal Psych affect normal Assessment & Plan Assessment/Plan (1) CAD (coronary artery disease): PLAN: Plan 1. Acute coronary syndrome-again patient underwent insertion of CARLENE with lithotripsy to the right coronary artery today. She is stable at this time #2 essential hypertension-blood pressure will be monitored and medicines will be adjusted as necessary #3 hyperlipidemia-patient is on a statin #4 hypothyroidism-patient is on Synthroid Total clinical time spent by myself addressing the patient's medical issue, reviewing all of her data, and collaborating with patient's care team: 35 minutes Charges/Coding Visit Charges Inpatient E&M: 68118 Subs Hosp L2
[2024-12-13] MEDS: Estradiol 0.5 MG Tablet PO (21:07)
[2024-12-13] MEDS: Carvedilol 3.125 MG TABLET PO (21:07)
[2024-12-13] MEDS: Atorvastatin Calcium 10 MG Tablet 5 MG PO (21:07)
[2024-12-13] MEDS: 0.9% Saline Lock 10 ML Syringe IV (21:08)
[2024-12-14 00:43] VITALS: BP 141/70; PULSE 66; RESP 12; TEMP 36.7; O2SAT 100
[2024-12-14] MEDS: Levothyroxine 50 MCG Tablet PO (05:27)
[2024-12-14 06:54] LABS: Hematocrit 33.4 % (37-47); Hemoglobin 11.5 g/dL (12.0-15.0); Mean Corp Hgb Conc 34.4 g/dL (32-36); Mean Corpuscular Hgb 29.1 pg (27.0-32.0); Mean Corpuscular Volume 84.6 fL (81-99); Mean Platelet Vol. 9.8 fl (6.2-12.0); Platelet Count 269 K/mm3 (150-450); RBC Distribution Width CV 12.9 % (11.6-14.6); Red Blood Count 3.95 M/mm3 (4.2-5.4); White Blood Count 12.4 K/mm3 (4.4-11.0)
[2024-12-14 07:24] LABS: ALB/GLOB Ratio 1.5 RATIO (0.9-2.4); AST(SGOT) 44 U/L (<=31); Alanine Aminotransfer ALT/SGPT 12 U/L (<=34); Alkaline Phosphatase 54 U/L (35-104); Anion Gap 13 (5-15); BUN 9 mg/dL (4-19); BUN/Creat Ratio 16.2 RATIO (10-20); Calcium,Total 8.7 mg/dL (7.6-11.0); Carbon Dioxide 18.5 mmol/L (21.0-32.0); Chloride 99 mmol/L (98-108); Creatinine, Serum 0.55 mg/dL (0.70-1.20); EST Glomerular Filtration Rate 95 (>60); Estimated Creatinine Clearance 39.14 ml/min (50-250); Globulin 2.7 g/dL (2.2-4.2); Glucose 85 mg/dL (70-99); Potassium 3.9 mmol/L (3.3-5.1); Protein, Total 6.6 g/dL (5.9-8.4); Sodium Level 130 mmol/L (133-145); Total Bilirubin 0.85 mg/dL (0.00-1.30)
[2024-12-14 08:46] VITALS: BP 136/66; PULSE 74; RESP 16; TEMP 36.4; O2SAT 97
[2024-12-14] MEDS: Carvedilol 3.125 MG TABLET PO (09:30)
[2024-12-14] MEDS: Lisinopril 20 MG Tablet PO (09:30)
[2024-12-14] MEDS: Aspirin 81 MG TAB.CHEW PO (09:30)
[2024-12-14] MEDS: Clopidogrel Bisulfate 75 MG Tablet PO (09:30)
[2024-12-14] MEDS: Cholecalciferol (VIT D3) 25 MCG TABLET (1,000 UNITS) 50 MCG PO (09:31)
--- NOTE | 2024-12-14 09:32 | CASEMGMT ---
Addendum entered by Constance Ascencio 12/14/24 11:28: Noted pt has an rx for a p2y inhibitor. MAXI GONZALEZ to the pt room at this time. Pt is currently getting ready for DC in the bathroom with the aide. This MAXI GONZALEZ collaborated with the pt's RN who states that the pt has been on clopidogrel before and that the pt is wanting to pick the Rx up at her preferred pharmacy ([facility]). Pt RN states that she will have the pt sign the declination form. No further needs identified. Original Note: MAXI GONZALEZ to pt room at this time to discuss DC planning. Pt states that she wants to go home today with her animals. Pt states that she is indep and lives in a ranch style home, alone. Pt states that she has support through her neighbors and sister who will drive her home @ the time of DC. Pt was provided with a medical alert system hand out d/t the DIRECTOR GEOTHERM[employer] OPERATIONS call. Pt denies further needs including HH or OP Tx. Pt denies further DC needs at this time.
--- NOTE | 2024-12-14 09:43 | DCINST_ITS ---
Discharge Instructions Diet Discharge Diet: No restrictions DC O2, CPAP, BIPAP needs Home O2 Discharge instructions: No Dressing / Incision Discharge Activity: Return to Normal Activity Weight Bearing Status: Full weight bearing Follow Up Care Test Results: Test results from this visit will be discussed in further detail at your follow- up appointment, if applicable. Discharge Plan Admission Admit Date/Time: 12/12/24 01:34 Primary Reason for Your Visit: Unstable angina Attending Provider: Ramón Qiu Primary Care Provider: Adela Harley Consulting Providers: Khanh Hernandez; Mary Anne Tijerina Discharge Orders/Prescriptions Prescriptions: New lisinopril 20 mg Tablet 20 mg PO DAILY Qty: 30 0RF clopidogrel 75 mg Tablet 75 mg PO DAILY Qty: 30 0RF carvedilol 3.125 mg Tablet 3.125 mg PO BID Qty: 60 0RF simvastatin 20 mg tablet 20 mg PO DAILY Qty: 30 0RF Continued estradiol 0.5 mg tablet 0.5 mg PO QHS Patient Comments: take 1 tablet by mouth once daily flaxseed oil 1,000 mg capsule 1,000 mg PO DAILY Rx Instructions: administer with meals cranberry fruit 400 mg capsule 400 mg PO DAILY Rx Instructions: administer with a meal aspirin 81 MG tablet,chewable 81 mg PO DAILY@0800 estradiol 42.5 GM cream 1 ea VAGINAL WE Patient Comments: INSERT 0.1 APPLICATIONS VAGINALLY ONCE A WEEK cholecalciferol (vitamin D3) 50 mcg (2,000 unit) capsule 50 mcg PO QDAY levothyroxine 50 mcg tablet 50 mcg PO DAILY nitroglycerin 0.4 mg tablet, sublingual 0.4 mg sublingual Q5M PRN (Reason: chest pain) Qty: 25 1RF Discontinued lisinopril 10 mg tablet See Rx Instructions .ROUTE .COMPLEX Qty: 135 3RF Dose Instruction: take 1 AND 1/2 tablets by mouth once daily Rx Instructions: take 1 AND 1/2 tablets by mouth once daily simvastatin 10 mg tablet 10 mg PO DAILY Qty: 90 3RF Referrals / Follow Up: Adela Harley MD [Primary Care Provider] - Khanh Hernandez MD [Med Staff - Active Staff] - Within 1 Month Disposition Disposition (needs filled in before D/C Order can be placed): Home, Self Care
--- NOTE | 2024-12-14 09:50 | DS.PCM_ITS ---
Providers Date of Admission: 12/12/24 Date of Discharge: 12/14/24 Primary Care Physician: Dr. Adela Harley MD Consultations 12/12/24 02:36 Consult: Cardiology Routine Consulting Provider: Khanh Hernandez Reason for Consult: unstable angina EMERGENT Consult: No Notified: Yes Date Notified: 12/12/24 Time Notified: 06:00 Method of Notification: Verbal Reason For Visit: UNSTABLE ANGINA Diagnosis Discharge Diagnosis (1) CAD (coronary artery disease): Status: Acute Code(s): I25.10 - Atherosclerotic heart disease of [place] coronary artery without angina pectoris Plan 1. Acute coronary syndrome/unstable angina-again patient underwent insertion of CARLENE with lithotripsy to the right coronary artery today. She is stable at this time #2 essential hypertension-blood pressure will be monitored and medicines will be adjusted as necessary #3 hyperlipidemia-patient is on a statin #4 hypothyroidism-patient is on Synthroid Total clinical time spent by myself addressing the patient's medical issue, reviewing all of her data, and collaborating with patient's care team: 35 minutes Medications at Discharge Home Medications aspirin 81 mg chewable tablet 81 mg PO DAILY@0800 heart 05/30/20 estradiol 0.01% (0.1 mg/gram) vaginal cream 1 ea vaginal WE supplement 05/30/20 estradiol 0.5 mg tablet 0.5 mg PO QHS 12/22/20 nitroglycerin 0.4 mg sublingual tablet 0.4 mg sublingual Q5M PRN chest pain #25 tabs 08/02/22 flaxseed oil 1,000 mg capsule 1,000 mg PO DAILY 11/01/23 cholecalciferol (vitamin D3) 50 mcg (2,000 unit) capsule 50 mcg PO QDAY supplement 05/08/24 cranberry fruit 400 mg capsule 400 mg PO DAILY 05/08/24 levothyroxine 50 mcg tablet 50 mcg PO DAILY 12/11/24 carvedilol 3.125 mg tablet 3.125 mg PO BID #60 tabs 12/14/24 clopidogrel 75 mg tablet 75 mg PO DAILY #30 tabs 12/14/24 lisinopril 20 mg tablet 20 mg PO DAILY #30 tabs 12/14/24 simvastatin 20 mg tablet 20 mg PO DAILY #30 tabs 12/14/24 Hospital Course Procedures Cardiac catheterization (With CARLENE placement in the right coronary artery) Summary of Care Provided Minutes Spent on Discharge: 32 Hospital Course: This 79-year-old white female was seen in the emergency room at [facility] with a chief complaint of chest pain. Patient stated that she was getting intermittent chest pain was notably with exertion over the past several months. Workup in the emergency room included a CBC which was unremarkable, chemistry profile showed a sodium of 128, glucose was 154. Patient's troponins were 18, 23, and at 4 hours 25. EKG showed normal sinus rhythm without ischemic changes and chest x-ray was unremarkable. Patient was felt to have unstable angina, she was placed into ICU as an observation, she had an echocardiogram performed which showed a normal ejection fraction, there is mild to moderate aortic valve regurg. Patient underwent a cardiac catheterization which revealed no occlusive disease in the right coronary artery inside a stent, lithotripsy was performed and another CARLENE was inserted. Patient had no complications from the intervention. On 12/13/2024, patient was seen and examined: On examination she appeared in good health and spirits, she does not appear to be in any distress. Vital signs as documented. Skin warm and dry and without overt rashes. Neck without JVD, thyroid appears normal, trachea is midline, neck is supple. Lungs clear, normal air movement was noted. Heart exam notable for regular rhythm, normal sounds and absence of murmurs, rubs or gallops. Abdomen unremarkable and without evidence of organomegaly, masses, or abdominal aortic enlargement, bowel sounds are present in all 4 quadrants, no abdominal tenderness was noted. Extremities nonedematous, no cyanosis was noted, no clubbing was noted. Neuro: Cranial nerves II through XII are grossly intact, no focal motor deficits were noted, sensation to light touch and pinprick is intact, motor exam 5/5 throughout. Psych: Patient is alert and oriented x3, she does not appear anxious or depressed, she does not appear agitated. Patient was felt to be stable for discharge home on 12/13/2024 Weight / BMI Weight Weight: 42.1 kg Body Mass Index (BMI) 18.4 ABG / Lab / Microbiology Data 12/14/24 06:07 12/14/24 06:07 Laboratory: Laboratory Results - last 24 hr 12/13/24 08:57: Activated Clotting Time 285 H 12/13/24 09:59: Activated Clotting Time 291 H 12/14/24 06:07: WBC 12.4 H, RBC 3.95 L, Hgb 11.5 L, Hct 33.4 L, MCV 84.6, MCH 29.1, MCHC 34.4, RDW Std Deviation 40.0, RDW Coeff of Niya 12.9, Plt Count 269, MPV 9.8, Sodium 130 L, Potassium 3.9, Chloride 99, Carbon Dioxide 18.5 L, Anion Gap 13, BUN 9, Creatinine 0.55 L, Estim Creat Clear Calc 39.14 L, Est GFR (MDRD) Non-Af 95, BUN/Creatinine Ratio 16.2, Glucose 85, Calcium 8.7, Total Bilirubin 0.85, AST 44 H, ALT 12, Alkaline Phosphatase 54, Total Protein 6.6, Albumin 4.0, Globulin 2.7, Albumin/Globulin Ratio 1.5 D/C Instructions Discharge Diet: No restrictions Weight Bearing Status: Full weight bearing DC O2, CPAP, BIPAP Needs Home O2 Discharge instructions: No Meaningful Use Info Meaningful Use Meaningful Use Diagnoses (Choose all that apply): None applicable Ischemic Stroke Statin Dosing Therapy Reference: STATIN DOSE THERAPY REFERENCE: * Patients > 75 years receive moderate or high dose statin therapy. * Patients 75 years or YOUNGER should receive HIGH intensity statin dose unless contraindicated. You will be required to document reason for non-treatment if statin daily dose does not meet guidelines. HIGH DOSE STATIN THERAPY DAILY Atorvastatin > than or = to 40 mg Rosuvastatin > than or = to 20 mg Amlodipine + Atorvastatin > than or = to 2.5/40 mg Ezetimibe + Simvastatin 10/80 mg Simvastatin 80mg Discharge Plan Admission Admit Date/Time: 12/12/24 01:34 Primary Reason for Your Visit: Unstable angina Attending Provider: Ramón Qiu Primary Care Provider: Adela Harley Consulting Providers: Khanh Hernandez; Mary Anne Tijerina Discharge Orders/Prescriptions Prescriptions: New lisinopril 20 mg Tablet 20 mg PO DAILY Qty: 30 0RF clopidogrel 75 mg Tablet 75 mg PO DAILY Qty: 30 0RF carvedilol 3.125 mg Tablet 3.125 mg PO BID Qty: 60 0RF simvastatin 20 mg tablet 20 mg PO DAILY Qty: 30 0RF Continued estradiol 0.5 mg tablet 0.5 mg PO QHS Patient Comments: take 1 tablet by mouth once daily flaxseed oil 1,000 mg capsule 1,000 mg PO DAILY Rx Instructions: administer with meals cranberry fruit 400 mg capsule 400 mg PO DAILY Rx Instructions: administer with a meal aspirin 81 MG tablet,chewable 81 mg PO DAILY@0800 estradiol 42.5 GM cream 1 ea VAGINAL WE Patient Comments: INSERT 0.1 APPLICATIONS VAGINALLY ONCE A WEEK cholecalciferol (vitamin D3) 50 mcg (2,000 unit) capsule 50 mcg PO QDAY levothyroxine 50 mcg tablet 50 mcg PO DAILY nitroglycerin 0.4 mg tablet, sublingual 0.4 mg sublingual Q5M PRN (Reason: chest pain) Qty: 25 1RF Discontinued lisinopril 10 mg tablet See Rx Instructions .ROUTE .COMPLEX Qty: 135 3RF Dose Instruction: take 1 AND 1/2 tablets by mouth once daily Rx Instructions: take 1 AND 1/2 tablets by mouth once daily simvastatin 10 mg tablet 10 mg PO DAILY Qty: 90 3RF Referrals / Follow Up: Adlea Harley MD [Primary Care Provider] - Khanh Hernandez MD [Med Staff - Active Staff] - Within 1 Month Disposition Disposition (needs filled in before D/C Order can be placed): Home, Self Care Charges/Coding Visit Charges Inpatient E&M: 53410 Disch Hosp >30min
--- NOTE | 2024-12-14 11:06 | PCM.PN.CARD ---
Subjective Subjective Has has no new complaints today. She wants to go home Objective Data Vital Signs: Vital Signs Temp Pulse Resp BP Pulse Ox O2 Del Method O2 Flow Rate 97.6 F L 74 16 136/66 H 97 Room Air 2 12/14/24 08:46 12/14/24 08:46 12/14/24 08:46 12/14/24 08:46 12/14/24 08:46 12/14/24 10:00 12/12/24 19:29 Oxygen Flow Rate (L/min) 2 Oxygen Delivery Method Room Air Weight: 92 lb 13.034 oz Body Mass Index (BMI) 18.4 Intake & Output: Intake and Output for Last 24 Hours 12/12/24 12/13/24 12/14/24 23:59 23:59 23:59 Intake Total 398.74 / 398.74 1240 / 1240 Output Total 560 / 560 Balance 398.74 / 398.74 680 / 680 Lab / Micro Data 12/14/24 06:07 12/14/24 06:07 Labs: Laboratory Results - last 24 hr 12/13/24 08:57: Activated Clotting Time 285 H 12/13/24 09:59: Activated Clotting Time 291 H 12/14/24 06:07: WBC 12.4 H, RBC 3.95 L, Hgb 11.5 L, Hct 33.4 L, MCV 84.6, MCH 29.1, MCHC 34.4, RDW Std Deviation 40.0, RDW Coeff of Niya 12.9, Plt Count 269, MPV 9.8, Sodium 130 L, Potassium 3.9, Chloride 99, Carbon Dioxide 18.5 L, Anion Gap 13, BUN 9, Creatinine 0.55 L, Estim Creat Clear Calc 39.14 L, Est GFR (MDRD) Non-Af 95, BUN/Creatinine Ratio 16.2, Glucose 85, Calcium 8.7, Total Bilirubin 0.85, AST 44 H, ALT 12, Alkaline Phosphatase 54, Total Protein 6.6, Albumin 4.0, Globulin 2.7, Albumin/Globulin Ratio 1.5 Rhythm Strip Rhythm Strip: Sinus Rhythm Rate: 62 Cardiology Labs/Tests 12/14/24 06:07: WBC 12.4 H, RBC 3.95 L, Hgb 11.5 L, Hct 33.4 L, MCV 84.6, MCH 29.1, MCHC 34.4, Plt Count 269, MPV 9.8, Sodium 130 L, Potassium 3.9, Chloride 99, Carbon Dioxide 18.5 L, Anion Gap 13, BUN 9, Creatinine 0.55 L, Est GFR (MDRD) Non-Af 95, BUN/Creatinine Ratio 16.2, Glucose 85, Calcium 8.7, Total Bilirubin 0.85 Rhythm: EKG: ECHO: Stress Test: Cardiac Cath: PCI: CT Surgery: Holter monitor: EPS: PPM: CXR: Chest CT Scan: Physical Exam Narrative General?alert oriented HEENT- normal extraocular movements Neck supple no JVD Cardiovascular- normal S1-S2, no murmurs Pulmonary- clear to auscultation bilaterally Abdomen- soft to palpation, normal sounds Extremities- no edema Musculoskeletal- no tenderness no swelling Neurological -alert oriented Psych -normal affect Assessment & Plan Assessment/Plan (1) CAD (coronary artery disease): PLAN: Plan 1. Acute coronary syndrome-again patient underwent insertion of CALRENE with lithotripsy to the right coronary artery today. No chest pain no complaints. Will plan to discharge home today follow-up in the office. Continue aspirin statin Plavix 2 Essential [id number] 3 hyperlipidemia-patient is on a statin 4 hypothyroidism-patient is on Synthroid Plan follow-up in office.
--- NOTE | 2025-02-11 09:45 | CL.I_ITS ---
Patient Name: BEN ARROYO Study Date: 12/13/2024 Performing: Sukumar Saldaña MD Ht: 59.5 inches 151.13 cm : 1945 Wt: 92.81 lbs 42.1 kg Age: 79 Gender: female BSA: 1.34 PROCEDURE(S) PERFORMED [id number]-([id number])LHC/COR IC12-([id number])CARLENE W/WO PTCA, SINGLE CORONARY ARTERY IC11A-([id number])CORONARY INTRAVASCULAR LITHOTRIPSY CLINICAL PROFILE AND CO-MORBIDITIES Indications: New Onset Angina <= 2 months Heart Failure: None Stress/Imaging Stress Test w/SPECT MPI: Yes Result: Positive High Risk Stress Test with SPECT MPI: Positive High Risk Angina Classification Anginal Classification w/in 2 Weeks: CCS IV CAD Presentations: Unstable angina. 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 The risks and benefits of the procedure as well as a full description of our services here and lack of surgical backup were fully explained to the patient and/or their significant other prior to the catheterization. The Timeout was completed, verifying the correct patient and procedure. The patient's procedural site was prepped and draped in the usual fashion. Local anesthetic was given subcutaneously to left radial region with Lidocaine 2%. Using a modified Seldinger technique, arterial access was obtained via the left femoral artery, a 6Fr sheath was inserted.. Left internal mammary artery graft to the LAD selective angiography was performed in multiple views using a 5 Fr. IM catheter. Left Coronary Artery selective angiography was performed in multiple views using a 5 Fr. JL3.5 catheter. Right Coronary Artery selective angiography was then performed in multiple views using a 6 Fr. MPB 2The images were reviewed and options discussed. A decision was then made to proceed with an Intervention, IVUS or other adjunct procedure. JR4 Guide catheter was inserted but unable to engage into the RCA. AL 0.75 Guide catheter was inserted but unable to engage into the RCA. AR2 Guide catheter was inserted but not engaged into the RCA. 3DRC Guide catheter was inserted and engaged into the RCA. Runthrough Guide wire was advanced to the RCA. NC Emerge 2.5 x 12 Balloon catheter was inserted. Runthrough (2) Guide wire was inserted as a bell wire NC Emerge 2.5 x 12 Balloon catheter was reinserted Emerge 2.0 x 15 Balloon catheter was inserted. Emerge 2.0 x 15 Balloon catheter was reinserted Balloon catheter was advanced across lesion in the right coronary, ostial. PTCA balloon inflated at 14 atms for 28 secs. PTCA balloon inflated at 14 atms for 15 secs. NC Emerge 2.5 x 12 Balloon catheter was reinserted Balloon catheter was advanced across lesion in the right coronary, ostial. PTCA balloon inflated at 18 atms for 27 secs. PTCA balloon inflated at 20 atms for 25 secs. Wiliam Conway 3.0 x 12 Drug Eluting stent was inserted. Drug Eluting stent was advanced across the lesion in the right coronary, ostial. NC Emerge 3.25 x 12 Balloon catheter was inserted. Balloon catheter was advanced across lesion in the right coronary, ostial. Angiogram performed post stent deployment. The arterial sheath was pulled and a TR Band was applied for hemostasis CORONARY ANGIOGRAPHY DOMINANCE: Right Dominant LEFT HEART ASSESSMENT LVEDP: 9 mmHg LEFT MAIN: Angiographically normal LEFT ANTERIOR DESCENDING ARTERY: LAD: In-Stent Restenosis 95% Proximal lesion in LAD OM 1: Tubular 65% Proximal lesion in MARG1 OM 2: Tubular 65% Proximal lesion in MARG1 RIGHT CORONARY ARTERY: RCA: In-Stent Restenosis 95% Ostial lesion in RCA, STENT to 95% INTERVENTION INFORMATION LESION SITE: RCA (Ostial) Lesion Complexity: High/C, lesion length: 10 mm, culprit lesion: Yes, In-stent restenosis: Yes Pre Stenosis: 99 % Pre intervention ALEX flow: 3 PROCEDURE: IVL, Drug Eluting Stent with pre and post dilatation Post Stenosis: 0 % Post intervention ALEX flow: 3 Lesion Devices: Terumo .014 180cm Runthrough Extra Floppy straight Cordis 6 Fr 3DRC 100cm Guide Catheter Terumo .014 180cm Runthrough Extra Floppy straight [employer] NC EMERGE MR 2.50x12 BALLOON [employer]ney [employer] EMERGE MR 2.00x15 BALLOON [employer] Shockwave IVL 2.5x12 [employer] 3.0 x 12 WILIAM FRONTIER CARLENE [employer] NC EMERGE MR 3.25x12 BALLOON COMPLICATIONS No Complications PROCEDURE MEDICATIONS Versed 1 mg IV Fentanyl 50 mcg IV Versed 1 mg IV Fentanyl 25 mcg IV Versed 1 mg IV Fentanyl 25 mcg IV Oxygen: 2 L/min via nasal cannula Baby Aspirin (81mg) 1 Tabs PO 12/13/2024 08:55:10 Brilinta 180 mg PO @ 12/13/2024 09:37:09 Heparin given IA 12/13/2024 09:07:53 Heparin 4000 unit(s) IV 12/13/2024 09:37:02 Heparin 2000 unit(s) IV 12/13/2024 10:14:54 Verapamil 2.5mg, Ntg 200mcgs, 2000 units of Heparin given IA 12/13/2024 09:07:53 IV Bolus: .9 NaCl 250 ml total 12/13/2024 09:19:32 SUMMARY OF HEMODYNAMIC DATA Time AIR REST ECG 08:49:28 AO 131/58 (84) SA 09:10:31 LV 157/-5, 9 09:55:35 LV 162/-3, 10 09:55:43 LVp 161/-4, 9 09:55:46 AOp 154/56 (96) 09:55:53 11:08:50 Signed By Sukumar Saldaña MD On 12/13/2024 12:42:25 Sukumar Saldaña MD
== END 2024-12-14 12:17 | disposition home or self-care (01) ==
LOC: ED 12-12 00:51 → ICU 12-12 01:41
PROVIDERS: Internal Medicine Cardiovascular Disease; Admitting Provider Internal Medicine; Emergency Provider Emergency Medicine; PCP Family Medicine; Visit Provider Internal Medicine
DX: I25.110 Atherosclerotic heart disease of native coronary artery with unstable angina pectoris (principal); E78.00 Pure hypercholesterolemia, unspecified; E87.1 Hypo-osmolality and hyponatremia; I10 Essential (primary) hypertension; Z95.1 Presence of aortocoronary bypass graft; R79.89 Other specified abnormal findings of blood chemistry; Z95.5 Presence of coronary angioplasty implant and graft; K21.9 Gastro-esophageal reflux disease without esophagitis; E03.9 Hypothyroidism, unspecified; Z79.899 Other long term (current) drug therapy; Z79.82 Long term (current) use of aspirin; Z79.890 Hormone replacement therapy; T82.855A Stenosis of coronary artery stent, initial encounter; Y71.2 Prosthetic and other implants, materials and accessory cardiovascular devices associated with adverse incidents
CPT/HCPCS: 36415; 71045; 78452; 80048; 80053; 80061; 83735; 84100; 84443; 84484; 85025; 85027; 85347; 85610; 85730; 92928; 92972; 93005; 93017; 93306; 93455; 94668; 94762; 96361; 96365; 96366; 96368; 96375; 96376; 99152; 99153; 99221; 99252; 99284; A9500; C1761; C1887; C1894; Q9967; A4216; C1725; C1769; C1874; C9600; G0378; G0463; J2785

== ENCOUNTER → 2024-12-24 | Outpatient (CLI) | payer MEDICARE, SELFPAY ==
[2021-03-05 11:09] VITALS: BMI 18.5
--- NOTE | 2024-12-24 14:06 | PCM.CR.HP2 ---
CR - History & Physical General Arrival date:: 12/24/24 Arrival time:: 14:07 Date of Referral:: 12/13/24 Date of CR Evaluation:: 12/24/24 Referring Physician: Dr. Saldaña Primary Diagnosis: PCI with stent History of Present Cardiac Event Onset Date PTCA or coronary stenting:: Yes (onset 12/13/24) Vessel: RCA Medications Ambulatory Orders ?Medication ?Instructions ?Recorded aspirin 81 mg chewable tablet 81 mg PO DAILY@0800 heart 05/30/20 estradiol 0.01% (0.1 mg/gram) 1 ea vaginal WE supplement 05/30/20 vaginal cream estradiol 0.5 mg tablet 0.5 mg PO QHS 12/22/20 nitroglycerin 0.4 mg sublingual 0.4 mg sublingual Q5M PRN chest 08/02/22 tablet pain #25 tabs flaxseed oil 1,000 mg capsule 1,000 mg PO DAILY 11/01/23 cholecalciferol (vitamin D3) 50 50 mcg PO QDAY supplement 05/08/24 mcg (2,000 unit) capsule cranberry fruit 400 mg capsule 400 mg PO DAILY 05/08/24 levothyroxine 50 mcg tablet 50 mcg PO DAILY 12/11/24 carvedilol 3.125 mg tablet 3.125 mg PO BID #180 tabs 12/17/24 clopidogrel 75 mg tablet 75 mg PO DAILY #90 tabs 12/17/24 lisinopril 20 mg tablet 20 mg PO DAILY #90 tabs 12/17/24 simvastatin 20 mg tablet 20 mg PO DAILY #90 tabs 12/17/24 Allergies Allergies lactose Adverse Reaction (Verified 12/11/24 18:34) Upset Stomach metoprolol Adverse Reaction (Verified 12/11/24 18:34) dizziness Penicillins Adverse Reaction (Verified 12/11/24 18:34) Hives Sleep Disorder Evaluation Hx of Sleep Apnea: No Do you snore loudly (louder than talking or can be heard through closed doors)?: No Do you often feel tired/ fatigued/ sleepy during daytime?: No Has anyone observed you stop breathing during sleep?: No History of Hypertension (for STOP score): Yes STOP Results: Negative Advanced Directives Advanced Directives Do you have a Healthcare Power of [place] Operator?: Yes Living Will: Yes Advance Directives Information Provided: Yes Advance Directives on File: Yes DNR Order?:: No Past Medical History Covid-19 Screening Physicial Symptoms Other Clinical Concerns Exposure Risk Pertinent Comorbidities 65 years or older:: Yes Has a serious heart condition:: Yes Past Medical Illness Past Medical History (Updated 12/22/24 @ 00:01 by Background Daemon) Uncontrolled hypertension I10 Elevated troponin R79.89 Chest pain R07.9 Unstable angina I20.0 Breast cancer C50.919 Osteopenia M85.80 Hiatal hernia K44.9 Osteoarthritis M19.90 IBS (irritable bowel syndrome) K58.9 History of hepatitis A Z86.19 Anemia D64.9 Atherosclerosis of coronary artery of [place] heart without angina pectoris I25.10 CABG x 1 AUGUSTINE-LAD 06/16/99 [id number] 1998; ADB-Ekwvxiysc-[id number] and mid RCA w/ CARLENE-distal, mid and proximal RCA; FFR LEFT CIRCUMFLEX: Moderate OM disease with FFR = 0.89 02/03/2021 Essential hypertension I10 GERD (gastroesophageal reflux disease) K21.9 Anxiety F41.9 Arthritis M19.90 Hyperlipidemia E78.5 Hypothyroidism E03.9 Past Surgical History Past Surgical History (Updated 12/22/24 @ 00:01 by Background Daemon) History of coronary artery stent placement (12/13/24) Z95.5 [id number] 1998; [id number]-[id number] and mid RCA w/ CARLENE-distal, mid and proximal RCA; FFR LEFT CIRCUMFLEX: Moderate OM disease with FFR = 0.89 02/03/2021; 12/13/2024: CARLENE (in stent restenosis) to Ostial and Proximal RCA using Aj Carpenter 3.0 x12mm . Previously deployed stent to RCA with struts in aorta, engaged the [facility] 3 DRC guide. H/O coronary artery bypass surgery (06/16/99) Z95.1 CABG x 1 AUGUSTINE-LAD 06/16/99 History of left heart catheterization (01/26/21) Z98.890 05/13/99, 06/29/99, 2009, 01/26/21 History of bilateral breast implants Z98.82 History of shoulder surgery Z98.890 History of hammer toe correction Z98.890, Z87.39 History of bunionectomy Z98.890 History of cholecystectomy Z90.49 History of cataract surgery Z98.49 History of bilateral mastectomy Z90.13 History of right knee surgery Z98.890 History of hysterectomy Z90.710 Surgical History: cholecystectomy, coronary bypass surgery and hysterectomy Family History Summary Family History Sister Breast cancer Grandmother Breast cancer Father CVA (cerebral vascular accident) Myocardial infarction Mother Parkinson's disease Brother Seizures CVA (cerebral vascular accident) Social History Smoking History Smoking Status: Never smoker Alcohol Use Alcohol Usage: No Occupation Occupation (List type of work in comments):: Retired Social Environment Status Marital Status: Current Living Arrangements Living Environment:: Alone Children How many children do you have?: 2 Do any of your children live nearby?: Yes Safety Do you feel safe in your surroundings?: Yes Assistance Do you need any assistance at home?: no Review of Systems Review of Systems Hints Review of Present Symptoms: Reports Shortness of Breath with Exertion, Angina, Dizziness/Lightheadedness, Fatigue and Appetite - Special Diet; Denies Shortness of Breath at Rest, PVD, Operative Discomfort, Wound Healing, Heart Arrhythmia/Irregularities, Appetite - Normal, Sleep - Normal or Sexual Changes Pain Is Patient Pain Free?: Yes Risk Factor Assessment Chief Complaint Chief Complaint: PCI with stent Vital Signs Pulse Ox: 99 Blood Pressure: 140/60 Pulse Pulse Rate: 58 Pulse Rhythm: Regular Hypertension How long have you been treated?: 26 years Blood Pressure Sitting - Right Arm: 140/60 Stress Stress: Home/Family Obesity Height: 4 ft 11.5 in Weight:: 95 lb Weight in Pounds: 95.0 lbs Body Mass Index (BMI): 18.8 Nutritional Referral for Obesity: No Physical Inactivity Physical Inactivity: Recreational activity Risk Stratification Risk Guidelines: Lowest Risk: Risk Factor for Obesity, Moderate Risk: Risk Factor for Smoking, Risk Factor for Diabetes, Risk Factor for Sedentary Lifestyle and Risk Factor for Depression and Highest Risk: Risk Factor for Dyslipidemia and Risk Factor for Hypertension For Smoking Smoking Risk Guidelines For Dyslipidemia Dyslipidemia Risk Guidelines For Diabetes Mellitus Diabetes Risk Guidelines For Obesity/Overweight Obesity/Overweight Risk Guidelines For Hypertension Hypertension Risk Guidelines For Sedentary Lifestyle Sedentary Lifestyle Risk Guidelines For Depression Depression Risk Guidelines Family History Family History Sister Breast cancer Grandmother Breast cancer Father CVA (cerebral vascular accident) Myocardial infarction Mother Parkinson's disease Brother Seizures CVA (cerebral vascular accident) Motivation Motivation to Participate On a scale of 1 to 10, how prepared are you to commit to attending program?: 6 What do you see as barriers to successfully being able to complete the program?: nothing What do you see as the benefits of succesfully completing the program? In other words, what do you hope to get out of participating in the program?: more energy Are there issues you are dealing with that will interfere with completing the program?: no Do you have a spouse or signficant other, family or friends who will help support you to complete the program?: yes
--- NOTE | 2024-12-24 14:13 | CR.ITP_ITS ---
Diagnosis General Information Admitting Diagnosis: PCI w/stenting Personal Learning Style:: Audio/Visual Barriers to Learning: No Barriers Stage of change r/t lifestyle modifications:: Contemplation Gave educational material for:: Treating Heart Disease, How The Heart Works, What it means to have Heart Disease, How Coronary Artery Disease is Diagnosed, Heart Procedures, What Heart Medications Do, Risk Factors & Modifications, Living an Active Life, Nutrition, Emotions & Heart Disease, Stress Management & Relaxation and Sleep Disorders & Heart Disease Education/Goals Cardiac Rehabilitation Goals Personal Goals: Initial Assessment: Improve energy level, Participate in home exercise program, Get back to work, or to resume activities faster, Improve knowledge of cardiac disease, Improve muscle strength and endurance, Improve diet and eating habits (eat healthier) and Control risk factors (learn risk factor modification) Scale for measuring improvement of personal goals Diagnosis & Disease Process Outcomes/Goals: Pt IDs own risk factors & lifestyle modifications by Session 10, Verbalizes symptoms of angina & response by session 3., Pt independently manages and Other Additional Outcomes/Goals: Plan/Interventions: Assist Pt to ID & engage in lifestyle modification to reduce CVD risk, Instruct on individual risk factors, Review symptoms of angina & emergency actions, Review secondary diagnosis & identify educational needs. and Other see comment 30 day Reassessments:: Not Met 30 day Reassessments:: Not Met 30 day Reassessments:: Not Met 30 day Reassessments:: Not Met Final Reassessments:: Not Met Safety Referral to Physical Therapy: No Referral to [facility] Case Management: No Fall Risk Assessed:: Yes Assistive Devices:: None Exercise - Initial Assessment Visit Date of Eval: 12/24/24 (initial eval ) Mets: Pre-: >3 METS for 30 minutes by discharge, >5 METS for 30 minutes by discharge, >7 METS for 30 minutes by discharge and Unable to meet goal due to: (see comment below) Physician Prescribed Exercise Modalities: Treadmill, Rower, Schwinn Airdyne AD-7, SciFit Stepper, SciFit Pro- II Ergometer and SciFit Lateral Central Supply Aide Frequency: 3x/week for 12 weeks [36 sessions] Intensity: 60-80% of age predicted maximum heart rate reserve Duration: 30 - 45 minutes Current METSs:: 3 Target Heart Rate:: 86-107 Resting Blood Pressure: 140/60 EKG Type: NSR, nonspecific T wave abnormality Outcomes & Goals Goals:: Verbalizes understanding of THR, RPE & goal METS by session 6, Documents in home exercise log/reports 30 min aerobic 5 day/wk by DC, Demonstrates accurate pulse taking by DC and Other additional outcome/goals: see below Intervention & Plan Exercise Program Goals: Instruct on personal THR & RPE, Instruct on MET level & personal MET goal, Show patient to take own pulse /validate performance until accurate, Instruct on home exercise and Other additional plan/int Physical Activity Home Exercise Physical Activity - Home Exercise: Safe Exercise, Warm-up, Self-monitoring, Cool-Down, Home Exercise > 30 min Daily and Sitting Time <3 hours/daily Outcomes & Goals Outcomes/Goals: Demonstrates correct Warm-up/exercise Cool-Down (S3) if = 2.5 METs, Verbalizes symptoms of exercise intolerance by Session 3 (S3), Demonstrate safe equipment use (S3) & follows exercise prescrition (6) and Other: See below Intervention & Plan Plan/Intervention: Instruct warm-up & cool-down if exercising at > 2 METs, Instruct on symptoms of exercise intolerance & actions to take, Instruct & monitor on saf, Assess intial functional capacity & safety risk and Other See below Nutrition - Initial Assessment Program Goals Nutrition Program Goals Patient has diagnosis of Hyperlipidemia (ICD E78)?: Yes Visit Date of Eval: 12/24/24 (initial eval ) Cholesterol/Lipids (Other Core Measures) Determine presence & major risk factors that modify LDL goal: Cigarette smoking, Hypertension or hypertensive medication, Low HDL cholesterol <40 mg/dL*, Family history of premature CHD in Male < 55 years: female <65 yearsFa and Age men > 45 years; women >/= 55 years Outcomes/Goals: Pt IDs own risk factors & lifestyle modifications by Session 10, Verbalizes symptoms of angina & response by session 3., Pt independently manages and Other Additional Outcomes/Goals: Intervention/Plan: Advocate for lipid panel cholesterol medication if applicable, Instruct on personal lipid levels & lipid goals/NCEP guidelines, Instruct on cholesterol and Other additional plan/int Referral to dietitian:: Yes Diabetes (Other Core Measures) Diabetes Type: Not Applicable Weight Mgt (Other Care) Height: 4 ft 11.5 in Weight:: 95 lb BMI: 18.8 Diagnosis Overweight/Obesity BMI> 30% ICD-10 E66: No Diagnosis High BMI/Morbid Obesity BMI> 35% ICD-10 Z68: No Outcomes/Goals: Pt sets, maintains & shows weight loss goal & trend during rehab and Other additional outcomes/goals Intervention/Plan: Instruct on ideal BMI & set weight loss goal w/patient, Assist pt to ID & incorporate diet changes for weight loss by S9, Refer to Structured Weight Loss program as appropriate, Encourage goal of using 250- 300dcal per session for weight loss and Other additional plan/interventions Healthy Eating Habits Will attend diet classes:: Yes Outcomes/Goals:: Consume diet rich in vegs,fruits,whole grain/high fiber,f eduin,lean meat, Limit sat/trans fats,cholesterol & added salts & sugars and Other additional outcome/goals: Intervention/Plan:: Assess current eating habits and Other Additional plan/interventions Education Gave educational materials for:: Signs & symptoms of hypoglycemia, Signs & symptoms of hyperglycemia, Relate diabetes to coronary artery disease and Healthy eating Core - Initial Assessment Visit Date of Eval: 12/24/24 (initial eval ) Medication Compliance Preventative Medication(s):: Aspirin, ALLEN inhibitor, Clopidogrel/P2Y12 inhibit, Statin/lipid and Beta ajit H/O mental health issues: depression, anxiety, or addiction?: No Doesn?t believe in the benefits of treatment?: No Believes medications are unnecessary or harmful?: No Has a concern about medication side effects?: No Expresses concern over the cost of medications?: No Outcomes/Goals: Verbalizes medications,desired effect & common side effects @ DC, Pt self-reports following medication regimen, Keeps card in wallet w/medications listed by DC and Other additional outcome/goals: Interventions/plans: Instruct on medication effects & side effects, Review medication list w/patient every two weeks, Instruct importance of taking meds as ordered & assist problem solving and Other additional Tobacco Use Tobacco Use: Non-smoker Hypertension Hypertension Diagnosis:: Hypertension ICD-10 I10 Resting Blood Pressure:: 140/60 [place] [employer] Hypertension Guidelines Outcomes/Goals: Able to verbalize/achieve optimal blood pressure <130/80, Incorporates diet changes & exercise for blood pressure control by DC and Other additional outcomes/goals Interventions/plan: Instruct on optimal blood pressure, hypertension & medications, Instruct on effects of sodium, alcohol, stress, exercise &hypertension and Other additional plan/interventions Tobacco Cessation Referral Individual Education/Counseling:: No Education Schedule Given:: Yes Psychosocial - Initial Assess VIsit Date of Eval: 12/24/24 (initial eval ) History of previous Mental disease:: No Self-reported stressors Other/Comments:: Pt does state that recently she has been a little down due to recent illness. Pt does not feel like she needs to talk to anyone at this time. Target Goals Target Goals Psychosocial Test Tool Used:: PHQ-9 Questionnaire phq-9 Severity See PHQ-9 Score: 3 Referral to Behavioral Health PS - Interventions: Yes: Attend Stress Management Classes Outcomes/Goals: See list Psychosocial Outcomes/Goals:: ID's personal stressors & 2 strategies to manage stress by discharge and Other Additional outcome/goals: Intervention/Plan: See List Interventions/Plan:: Assess stressors,coping strategies & signs of derpression on admission, Instruct/assist pt to develop coping & personal stress Mgt strategies, Refer to Behavioral Health if appropriate, Refer to Physician if appropriate, Instruct patient to recognize signs & symptoms of depression, Instruct patient to recog and Other additional plan/intervention Patient Health Questionnaire PHQ-9 Screening Initial Assessment: 1. Little interest or pleasure in doing things: Not at all 2. Feeling down, depressed, or hopeless: Not at all 3. Trouble falling or staying asleep, or sleeping too much: Not at all 4. Feeling tired or having little energy: Several days 5. Poor appetite or overeating: Several days 6. Feeling bad about yourself -- or that you are a failure or have let yourself or your family down: Not at all 7. Trouble concentrating on things, such as reading the newspaper or watching television: Not at all 8. Moving or speaking so slowly that other people could have noticed. Or the opposite - being so fidgety or restless that you have been moving around a lot more than usual: Several days 9. Thoughts that you would be better off , or of hurting yourself in some way: Not at all How difficult have these problems made it for you to do your work, take care of things at home, or get along with other people?: Not difficult at all Total Score: 3 RAJANI-Q SV Test Statements CAD is a disease of the arteries in the heart: False Examples of risk factors for heart disease: I Don't Know Angina is chest pain or discomfort: True The benefits of resistance training include: True Eating more meat and dairy products: False Anti-platelet medications such as aspirin are important: True The only effective way to manage stress: I Don't Know An exercise warm-up slowly increases heart rate: True Prepared, processed foods usually have high sodium: I Don't Know Depression is common after a heart attack: I Don't Know The statin medications lower cholesterol: True To control blood pressure, lower the amount of sodium: I Don't Know If someone gets chest discomfort during walking: I Don't Know Transfats are partially hydrogenated vegetable oils: I Don't Know Sleep apnea that is not treated increases the risk: I Don't Know To control cholesterol, one should become a vegetarian: I Don't Know Someone knows if he/she is exercising at the right level: I Don't Know Diabetes cannot be prevented with exercise & health eating: I Don't Know Stress is a large risk for heart attack: I Don't Know A diet that can help lower blood pressure is rich in: I Don't Know Total Score Total Correct Responses: 7 Self-Efficacy 6-Item Scale Initial Assessment: We would like to know how confident you are in doing certain activities. Please select your confidence level for: Fatigue Select Number: 5 Physical Discomfort or Pain Select Number: 6 Emotional Distress Select Number: 5 Other Symptoms or Health Problems Select Number: 4 Different Tasks and Activities Select Number: 6 Medication Select Number: 5 Total Score:: 5 Nutrition Survey Nutrition Survey Instructions Scoring Instructions Nutrition Survey Initial: Have you lost >10 lbs over the past 2 months without trying?: No Are you following a special diet at home for diabetes, low fat, or low salt?: No Are you interested in meeting with a dietitian for help understanding your diet?: Yes Do you eat less than 3 meals a day?: No Do you eat fatty meats (daigle, sausage, ribs, etc), fried foods, desserts, large amounts of salad dressings, margarine, butter, or cheese most days?: No Do you have food allergies? [Enter types in comment field]: Yes Do you eat in restaurants more than 3 times a week?: No Do you season food with salt, seasoning salt, or garlic salt?: Yes Do you used canned, boxed, frozen meals, or soups, seasoning packets?: Yes Total Score:: 4 Exercise - 30-day Assessment Physician Prescribed Exercise Modalities: Treadmill, Rower, Schwinn Airdyne AD-7, SciFit Stepper, SciFit Pro- II Ergometer and SciFit Lateral Central Supply Aide Exercise - 60-day Assessment Physician Prescribed Exercise Modalities: Treadmill, Rower, Schwinn Airdyne AD-7, SciFit Stepper, SciFit Pro- II Ergometer and SciFit Lateral Central Supply Aide Exercise - 90-day Assessment Physician Prescribed Exercise Modalities: Treadmill, Rower, Schwinn Airdyne AD-7, SciFit Stepper, SciFit Pro- II Ergometer and SciFit Lateral Central Supply Aide Exercise - Final/Discharge Physician Prescribed Exercise Modalities: Treadmill, Rower, Schwinn Airdyne AD-7, SciFit Stepper, SciFit Pro- II Ergometer and SciFit Lateral Central Supply Aide Frequency: 3x/week for 12 weeks [36 sessions] Intensity: 60-80% of age predicted maximum heart rate reserve Current METSs:: 3 Target Heart Rate:: 86-107 Nutrition - 30-Day Assessment Weight Mgt (Other Care) Height: 4 ft 11.5 in Weight:: 95 lb BMI: 18.8 Nutrition - 60-Day Assessment Weight Mgt (Other Care) Height: 4 ft 11.5 in Weight:: 95 lb BMI: 18.8 Core - Final Assessment Hypertension Resting Blood Pressure:: 140/60 [place] [employer] Hypertension Guidelines Core - 60-Day Assessment Hypertension Resting Blood Pressure:: 140/60 [place] [employer] Hypertension Guidelines Psychosocial - 30-Day Assess Target Goals Target Goals Referral to Behavioral Health PS - Interventions: Yes: Attend Stress Management Classes Psychosocial - 60-Day Assess Target Goals Target Goals Referral to Behavioral Health PS - Interventions: Yes: Attend Stress Management Classes Psychosocial - 90-Day Assess Target Goals Target Goals Referral to Behavioral Health PS - Interventions: Yes: Attend Stress Management Classes Psychosocial - Final Assessmen Target Goals Target Goals Psychosocial Test phq-9 Severity See PHQ-9 Score: 3 Referral to Behavioral Health PS - Interventions: Yes: Attend Stress Management Classes Nutrition - 90-Day Assessment Weight Mgt (Other Care) Height: 4 ft 11.5 in Weight:: 95 lb BMI: 18.8 Nutrition - Final Assessment Program Goals Patient has diagnosis of Hyperlipidemia (ICD E78)?: Yes Weight Mgt (Other Care) Height: 4 ft 11.5 in Weight:: 95 lb BMI: 18.8
[2024-12-24 14:28] VITALS: BP 140/60; PULSE 58; O2SAT 99
[2024-12-24 14:56] VITALS: BP 140/60; BMI 18.8
[2024-12-24 15:07] VITALS: BP 140/60
[2024-12-24 15:15] VITALS: BMI 18.8
== END | disposition home or self-care (01) ==
PROVIDERS: PCP Family Medicine; Referring Provider Internal Medicine Cardiovascular Disease; Visit Provider Internal Medicine Cardiovascular Disease
DX: I25.10 Atherosclerotic heart disease of native coronary artery without angina pectoris (principal); C50.911 Malignant neoplasm of unspecified site of right female breast; C50.912 Malignant neoplasm of unspecified site of left female breast; I10 Essential (primary) hypertension; E78.00 Pure hypercholesterolemia, unspecified; R79.89 Other specified abnormal findings of blood chemistry; Z95.1 Presence of aortocoronary bypass graft; Z95.5 Presence of coronary angioplasty implant and graft

== ENCOUNTER 2024-12-31 13:54 | Outpatient (RCR) | payer MEDICARE, SELFPAY ==
[2024-12-24 14:56] VITALS: BMI 18.8
== END 2024-12-31 23:59 ==
LOC: CR 13:54
PROVIDERS: PCP Family Medicine; Referring Provider Internal Medicine Cardiovascular Disease; Visit Provider Internal Medicine Cardiovascular Disease
DX: Z95.5 Presence of coronary angioplasty implant and graft (principal); I25.10 Atherosclerotic heart disease of native coronary artery without angina pectoris; R79.89 Other specified abnormal findings of blood chemistry; Z95.1 Presence of aortocoronary bypass graft; I10 Essential (primary) hypertension; E78.00 Pure hypercholesterolemia, unspecified; C50.911 Malignant neoplasm of unspecified site of right female breast; C50.912 Malignant neoplasm of unspecified site of left female breast
CPT/HCPCS: 93798

== ENCOUNTER 2025-01-30 09:30 | Outpatient (RCR) | payer MEDICARE, SELFPAY ==
[2024-12-24 14:56] VITALS: BMI 18.8
--- NOTE | 2025-01-21 08:06 | PCM.CR.ITP ---
Exercise - Initial Assessment Visit Session #:: 8 Physician Prescribed Exercise Modalities: Treadmill, SciFit Stepper and SciFit Pro-II Ergometer Nutrition - Initial Assessment Weight Mgt (Other Care) Height: 4 ft 11.5 in Weight:: 95 lb 8 oz BMI: 18.9 Psychosocial - Initial Assess Target Goals Target Goals Referral to Behavioral Health PS - Interventions: Yes: Attend Stress Management Classes Patient Health Questionnaire PHQ-9 Screening 30-Day Re-eval Assessment: 1. Little interest or pleasure in doing things: Not at all 2. Feeling down, depressed, or hopeless: Not at all 3. Trouble falling or staying asleep, or sleeping too much: Not at all 4. Feeling tired or having little energy: Several days 5. Poor appetite or overeating: Several days 6. Feeling bad about yourself -- or that you are a failure or have let yourself or your family down: Not at all 7. Trouble concentrating on things, such as reading the newspaper or watching television: Not at all 8. Moving or speaking so slowly that other people could have noticed. Or the opposite - being so fidgety or restless that you have been moving around a lot more than usual: Several days 9. Thoughts that you would be better off , or of hurting yourself in some way: Not at all How difficult have these problems made it for you to do your work, take care of things at home, or get along with other people?: Not difficult at all Total Score: 3 Self-Efficacy 6-Item Scale 30-Day Re-eval Assessment: We would like to know how confident you are in doing certain activities. Please select your confidence level for: Fatigue Select Number: 5 Physical Discomfort or Pain Select Number: 6 Emotional Distress Select Number: 5 Other Symptoms or Health Problems Select Number: 4 Different Tasks and Activities Select Number: 6 Medication Select Number: 5 Total Score:: 5 Nutrition Survey Nutrition Survey Instructions Scoring Instructions Exercise - 30-day Assessment Visit Date of Eval: 01/21/25 Session #:: 8 Physician Prescribed Exercise Modalities: Treadmill, SciFit Stepper and SciFit Pro-II Ergometer Frequency: 3x/week for 12 weeks [36 sessions] Intensity: 60-80% of age predicted maximum heart rate reserve Duration: 30 - 45 minutes Current METSs:: 3.8 Target Heart Rate:: 86-107 Current RPE:: 12-13 Maximum Excercise HR:: 83 Resting Blood Pressure: 136/68 Maximum Exercise Blood Pressure: 144/78 EKG Type: SB to NSR with rare PAC, PVC Outcomes & Goals Goals:: Verbalizes understanding of THR, RPE & goal METS by session 6, Documents in home exercise log/reports 30 min aerobic 5 day/wk by DC, Demonstrates accurate pulse taking by DC and Other additional outcome/goals: see below Intervention & Plan Exercise Program Goals: Instruct on personal THR & RPE, Instruct on MET level & personal MET goal, Show patient to take own pulse /validate performance until accurate, Instruct on home exercise and Other additional plan/int Physical Activity Home Exercise Physical Activity - Home Exercise: Safe Exercise, Warm-up, Self-monitoring, Cool-Down, Home Exercise > 30 min Daily and Sitting Time <3 hours/daily Outcomes & Goals Outcomes/Goals: Demonstrates correct Warm-up/exercise Cool-Down (S3) if = 2.5 METs, Verbalizes symptoms of exercise intolerance by Session 3 (S3), Demonstrate safe equipment use (S3) & follows exercise prescrition (6) and Other: See below Intervention & Plan Plan/Intervention: Instruct warm-up & cool-down if exercising at > 2 METs, Instruct on symptoms of exercise intolerance & actions to take, Instruct & monitor on saf, Assess intial functional capacity & safety risk and Other See below 30-day Reassessments 30 day Reassessments:: Progressing Reassessment Notes & Comments:: RPE explained to pt. Pt demonstrates understanding in her daily sessions. Exercise - 60-day Assessment Physician Prescribed Exercise Modalities: Treadmill, SciFit Stepper and SciFit Pro-II Ergometer Exercise - 90-day Assessment Physician Prescribed Exercise Modalities: Treadmill, SciFit Stepper and SciFit Pro-II Ergometer Exercise - Final/Discharge Physician Prescribed Exercise Modalities: Treadmill, SciFit Stepper and SciFit Pro-II Ergometer Nutrition - 30-Day Assessment Program Goals Nutrition Program Goals Patient has diagnosis of Hyperlipidemia (ICD E78)?: Yes Visit Date of Eval: 01/21/25 Session #:: 8 Cholesterol/Lipids (Other Core Measures) Determine presence & major risk factors that modify LDL goal: Cigarette smoking, Hypertension or hypertensive medication, Low HDL cholesterol <40 mg/dL*, Family history of premature CHD in Male < 55 years: female <65 yearsFa and Age men > 45 years; women >/= 55 years Outcomes/Goals: Pt IDs own risk factors & lifestyle modifications by Session 10, Verbalizes symptoms of angina & response by session 3., Pt independently manages and Other Additional Outcomes/Goals: Intervention/Plan: Advocate for lipid panel cholesterol medication if applicable, Instruct on personal lipid levels & lipid goals/NCEP guidelines, Instruct on cholesterol and Other additional plan/int Referral to dietitian:: Yes Diabetes (Other Core Measures) Diabetes Type: Not Applicable Weight Mgt (Other Care) Height: 4 ft 11.5 in Weight:: 95 lb 8 oz BMI: 18.9 Diagnosis Overweight/Obesity BMI> 30% ICD-10 E66: No Diagnosis High BMI/Morbid Obesity BMI> 35% ICD-10 Z68: No Outcomes/Goals: Pt sets, maintains & shows weight loss goal & trend during rehab and Other additional outcomes/goals Intervention/Plan: Instruct on ideal BMI & set weight loss goal w/patient, Assist pt to ID & incorporate diet changes for weight loss by S9, Refer to Structured Weight Loss program as appropriate, Encourage goal of using 250-300dcal per session for weight loss and Other additional plan/interventions Healthy Eating Habits Will attend diet classes:: Yes Outcomes/Goals:: Consume diet rich in vegs,fruits,whole grain/high fiber,fish,lean meat, Limit sat/trans fats,cholesterol & added salts & sugars and Other additional outcome/goals: Intervention/Plan:: Assess current eating habits and Other Additional plan/interventions 30-day Reassessments:: Progressing Reassessment Notes & Comments:: Pt is scheduled to attend nutrition class. 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 Education Gave educational materials for:: Signs & symptoms of hypoglycemia, Signs & symptoms of hyperglycemia, Relate diabetes to coronary artery disease and Healthy eating Nutrition - 60-Day Assessment Weight Mgt (Other Care) Height: 4 ft 11.5 in Weight:: 95 lb 8 oz BMI: 18.9 Core - 30-Day Assessment Visit Date of Eval: 01/21/25 Session #:: 8 Medication Compliance Preventative Medication(s):: Aspirin, ALLEN inhibitor, Clopidogrel/P2Y12 inhibit, Statin/lipid and Beta ajit H/O mental health issues: depression, anxiety, or addiction?: No Doesn?t believe in the benefits of treatment?: No Believes medications are unnecessary or harmful?: No Has a concern about medication side effects?: No Expresses concern over the cost of medications?: No Outcomes/Goals: Verbalizes medications,desired effect & common side effects @ DC, Pt self-reports following medication regimen, Keeps card in wallet w/medications listed by DC and Other additional outcome/goals: Interventions/plans: Instruct on medication effects & side effects, Review medication list w/patient every two weeks, Instruct importance of taking meds as ordered & assist problem solving and Other additional 30-day Reassessments:: Progressing Reassessment Notes & Comments:: 01/07 rosuvastatin 40 mg QHS Tobacco Use Tobacco Use: Non-smoker Hypertension Hypertension Diagnosis:: Hypertension ICD-10 I10 Resting Blood Pressure:: 136/68 [place] [employer] Hypertension Guidelines Peak Exercise Blood Pressure:: 144/78 Outcomes/Goals: Able to verbalize/achieve optimal blood pressure <130/80, Incorporates diet changes & exercise for blood pressure control by DC and Other additional outcomes/goals Interventions/plan: Instruct on optimal blood pressure, hypertension & medications, Instruct on effects of sodium, alcohol, stress, exercise &hypertension and Other additional plan/interventions 30 day Reassessments:: Progressing Reassessment Notes & Comments:: BP's are within AHA normal limits on some days. Will continue to monitor and send report to physician if necessary. Tobacco Cessation Referral Smoking Cessation Referral:: No Individual Education/Counseling:: No Education Schedule Given:: Yes Psychosocial - 30-Day Assess VIsit Date of Eval: 01/21/25 Session #:: 8 History of previous Mental disease:: No Self-reported stressors Other/Comments:: Recent Illness (Pt does state that she has been a little down due to recent illness. Pt does not feel like she needs to talk to anyone at this time.) Target Goals Target Goals Psychosocial Test Tool Used:: PHQ-9 Questionnaire phq-9 Severity See PHQ-9 Score: 3 Referral to Behavioral Health PS - Interventions: Yes: Attend Stress Management Classes Outcomes/Goals: See list Psychosocial Outcomes/Goals:: ID's personal stressors & 2 strategies to manage stress by discharge and Other Additional outcome/goals: Intervention/Plan: See List Interventions/Plan:: Assess stressors,coping strategies & signs of derpression on admission, Instruct/assist pt to develop coping & personal stress Mgt strategies, Refer to Behavioral Health if appropriate, Refer to Physician if appropriate, Instruct patient to recognize signs & symptoms of depression, Instruct patient to recog and Other additional plan/intervention 30-day Reassessments: 30 day Reassessments:: Progressing Reassessment Notes & Comments:: Pt does state that she has been a little down due to recent illness. Pt does not feel like she needs to talk to anyone at this time. Pt will attend stress management class. Will continue to monitor. Psychosocial - 60-Day Assess Target Goals Target Goals Referral to Behavioral Health PS - Interventions: Yes: Attend Stress Management Classes Outcomes/Goals: See list Psychosocial Outcomes/Goals:: ID's personal stressors & 2 strategies to manage stress by discharge and Other Additional outcome/goals: Psychosocial - 90-Day Assess Target Goals Target Goals Referral to Behavioral Health PS - Interventions: Yes: Attend Stress Management Classes Psychosocial - Final Assessmen Target Goals Target Goals Referral to Behavioral Health PS - Interventions: Yes: Attend Stress Management Classes Nutrition - 90-Day Assessment Weight Mgt (Other Care) Height: 4 ft 11.5 in Weight:: 95 lb 8 oz BMI: 18.9 Nutrition - Final Assessment Weight Mgt (Other Care) Height: 4 ft 11.5 in Weight:: 95 lb 8 oz BMI: 18.9
[2025-01-21 08:17] VITALS: BP 136/68; BMI 18.9
== END 2025-01-31 23:59 ==
LOC: CR 09:30
PROVIDERS: PCP Family Medicine; Referring Provider Internal Medicine Cardiovascular Disease; Visit Provider Internal Medicine Cardiovascular Disease
DX: Z95.5 Presence of coronary angioplasty implant and graft (principal); I25.10 Atherosclerotic heart disease of native coronary artery without angina pectoris; R79.89 Other specified abnormal findings of blood chemistry; Z95.1 Presence of aortocoronary bypass graft; I10 Essential (primary) hypertension; E78.00 Pure hypercholesterolemia, unspecified; C50.911 Malignant neoplasm of unspecified site of right female breast; C50.912 Malignant neoplasm of unspecified site of left female breast
CPT/HCPCS: 93798

== ENCOUNTER → 2025-02-25 | Outpatient (CLI) | payer MEDICARE, SELFPAY ==
[2025-02-19 09:06] VITALS: BMI 19.1
--- OUTSIDE RECORDS SUMMARY | 2025-02-25 06:32 | XMS RPT_ITS | CCD ---
Author Organization [facility] Care Team Providers Care Oil Deliverer Name Role Phone Diana Thomason Unavailable Thomason, Diana Unavailable Unavailable Thomason, Diana Unavailable Unavailable Thomason, Diana Unavailable Unavailable Thomason, Diana Unavailable Unavailable Thomason, Diana Unavailable Unavailable Thomason, Diana Unavailable Unavailable Thomason, Diana M Primary Care Provider Unavaila ble Diana Thomason M Primary Care Provider [phone] Diana Thomason Primary Care Provider Diana Thomason MD Primary Care Provider Dr. Adela Harley Primary Care Provider Dr. Adela Harley Referring Provider NENA Jenkins Attending Provider [phone] Chuy Espinal Attending Provider [phone] Josesito Valenzuela Attending Provider Dr. Adela Harley Primary Care Provider [phone] Dr. Adela Harley Referring Provider Dr. Chuy Espinal Attending Provider Dr. Josesito Valenzuela Attending Provider Adela Harley MD Primary Care Provider Dr. Adela Harley Primary Care Provider Dr. Adela Harley Referring Provider Prasanna SANTO, LOW Holcomb Attending Provider NENA Escobar Attending Provider Dr. Josesito Valenzuela Attending Provider NENA Kenny Attending Provider Dr. Adela Harley Primary Care Provider Dr. Adela Harley Referring Provider Adela Harley MD Primary Care Provider Cricket VERA, Dr. Chapman Primary Care Provider Cricket VERA, Dr. Chapman Attending Provider [phone] Dr. Adela Harley MD Referring Provider [phone] Aicha Presley Other Provider Dr. Sadi De Los Santos DO Emergency Provider Breezy ZIMMERMAN, Dr. North Admit Provider Dr. Mary Anne Tijerina DO Attending Provider Dr. Mary Anne Tijerina DO Other Provider Dr. Khanh Hernandez MD Other Provider Dr. Ramón Qiu DO Attending Provider Dr. Khanh Hernandez MD Attending Provider Dr. Ramón Qiu DO Other Provider Piotr VERA, Dr. Patino Attending Provider Dr. Oni Berry MD Attending Provider Unavaila ble Cricket VERA, Dr. Chapman Primary Care Provider Kay Jane RN Attending Provider Unavail able Piotr VERA, Dr. Patino Referring Provider Dr. Adela Harley MD Referring Provider Dr. Isabell Lowe MD Attending Provider [phone] YESSICA GREENE Referring Unavailable YESSICA GREENE Attending Unavailable ADELA HARLEY Primary Care Unavailable YESSICA GREENE Attending Unavailable [place], ADELA E Primary Care Unavailable [place], [place] Primary Care Unavailable Piotr, Sukumar Attending Unavailable Piotr, Sukumar Referring Unavailable Aicha Mims NP Referring Unavailable Prasanna SANTO, Aicha Attending Unavailable [facility], [place] Primary Care Unavailable [facility] [place] Primary Care Unavailable Kay Jane Attending Unavailable [facility] Primary Care Unavailable [facility], Adela Referring Unavailable Khanh Hernandez Attending Unavailable Need, Adela Referring Unavailable Prasanna SANTO, Aicha Attending Unavailable [place], [place] Primary Care Unavailable Khanh Hernandez Consulting Unavailable Mary Anne Tijerina Admitting Unavailable Mary Anne Tijerina Attending Unavailable [place], [place] Primary Care Unavailable Mary Anne Tijerina Consulting Unavailable Khanh Hernandez Attending Unavailable Ramón Qiu Consulting Unavailable Ramón Qiu Attending Unavailable Oni Berry Attending Unavailable [facility], [place] Primary Care Unavailable Piotr, Sukumar Attending Unavailable [facility], Adela Referring Unavailable [facility], [place] Primary Care Unavailable Airam Mills Attending Unavail able [place], [place] Primary Care Unavailable Piotr, Sukumar Attending Unavailable [facility], Adela Referring Unavailable [facility], Adela Attending Unavailable Prasanna SANTO, Aicha Consulting Unavailable [facility], [place] Primary Care Unavailable [place], Adela Primary Care Unavailable Piotr, Sukumar Attending Unavailable Piotr, Sukumar Referring Unavailable [facility], [place] Primary Care Unavailable Piotr, Sukumar Attending Unavailable Piotr, Sukumar Referring Unavailable [facility], [place] Primary Care Unavailable Piotr, Sukumar Referring Unavailable Piotr, Sukumar Attending Unavailable Khanh Hernandez Consulting Unavailable Mary Anne Tijerina Admitting Unavailable Ramón Qiu Attending Unavailable [place], [place] Primary Care Unavailable Mary Anne Tijerina Consulting Unavailable Allergies Allergy Classification Reported Allergen(s) Allergy Type Date of Onset Reaction(s) Facility Penicillins (antibiotic) (1 source) Penicillins Drug Allergy 6 [facility] (20 sources) Penicillins; Translations: [PENICILLINS] Propensity to adverse reactions to drug 6 Hives [facility] (20 sources) casein (cow milk) allergenic extract Drug Allergy Abdominal Discomfort [facility] (20 sources) Penicillins Propensity to adverse reactions to drug [facility] (20 sources) *Seasonal Propensity to adverse reactions to substance Runny Nose [facility] (20 sources) Lactose; Translations: [LACTOSE] Drug Allergy 1 Diarrhea [facility] (17 sources) Metoprolol Drug Allergy 2 dizziness [facility] (3 sources) Penicillins Drug Intolerance 0 [facility] Work Phone: (1 source) Penicillins Drug Intolerance 0 [facility] (1 source) Lactose Drug Allergy 5 [facility] (1 source) Metoprolol Drug Allergy 5 [facility] (1 source) Penicillins Drug allergy (disorder) 5 [facility] Medications Current Medications Medication Drug Class(es) Dates Sig (Normalized) Sig (Original) aspirin 81 mg chewable tablet (20 sources) Nonsteroidal Anti-inflammatory Drug Start: 05-30-2020 take 1 tablet by mouth once daily Aspirin 81 MG tablet,chewable Active 81 mg PO DAILY@0800 May 30, 2020 1:00am heart aspirin, enteric coated (ASPIRIN, ENTERIC COATED) 81 mg EC tablet Take 81 mg by mouth. Active take 1 tablet by mouth once nickolas y aspirin 81 MG Tab take 81 mg by mouth daily. 0 Active Comment on above: Take 81 mg by mouth. Biotin (1 source) BIOTIN PO Take b y mouth 2 times daily. 0 Active biotin 100 mg/gram powd (4 sources) biotin 100 mg/gr am powd Take by mouth. Active biotin 100 mg/gr am powd Take by mouth. 0 Active Comment on above: Take by mouth. 30 ml bupivacaine hydrochloride 2.5 mg/ml / EPINEPHrine 0.005 mg/ml injection (1 source) alpha-Adrenergic Agonist, beta-Adrenergic Agonist, Catecholamine, Amide Local Anesthetic Start: 02-06-2019 bupivacaine-epinephri ne (MARCAINE;SENSORCAINE W/EPI) 0.25% -[id number] injection calcium chloride 0.0014 meq/ml / potassium chloride 0.004 meq/ml / sodium chloride 0.103 meq/ml / sodium lactate 0.028 meq/ml injectable solution (2 sources) Start: 02-06-2019 lactated ringers IV solution Start: 12-22-2018 lactated ringe rs IV solution cholecalciferol 0.05 mg oral capsule (20 sources) Vitamin D Start: 05-08-2024 take 1 capsule by mouth once daily Cholecalciferol (Vitamin D3) 50 mcg (2,000 unit) capsule Active 50 ug PO daily May 08, 2024 10:07am supplement Start: 04-07-2023 End: 05-08-2024 take 1 capsule by mouth twice daily Cholecalciferol (Vitamin D3) 50 mcg (2,000 unit) capsule Discontinued 50 ug PO TWICE A DAY April 07, 2023 9:52am May 08, 2024 10:08am supplement Start: 05-30-2020 End: 04-07-2023 take 1 capsule by mouth once daily Cholecalciferol (Vitamin D3) 50 MCG capsule Discontinued 50 ug PO DAILY May 30, 2020 1:00am April 07, 2023 9:53am supplement take 1 tablet by chen once daily cholecalciferol, vitamin D3, 400 unit Tab Take 400 Units by mouth daily. 0 Active Cholecalciferol (VITAMIN D3 PO) Take 50 mcg by mouth. 0 Active Cholecalciferol (VITAMIN D3 PO) take by mouth. 0 Active cholecalciferol, vitamin D3, (CHOLECALCIFEROL, VITD3,, BULK,) 100,000 unit/gram powd (4 sources) cholecalciferol, vitamin D3, (CHOLECALCIFEROL, VITD3,, BULK,) [...] 4 capsules by mouth daily. 0 Active Cranberry Fruit (20 sources) Non-Standardized Food Allergenic Extract, Non-Standardized Plant Allergenic Extract Start: 05-08-2024 take 1 capsule by mouth once daily Cranberry Fruit 400 mg capsule Active 400 mg PO DAILY May 08, 2024 9:54am administer with a meal Start: 12-22-2020 take 2 capsules by m out once daily Cranberry 400 mg cap Take 800 mg by mouth once daily. 12/22/2020 Active Start: 12-22-2020 End: 05-08-2024 take 1 capsule by mouth once daily Cranberry Fruit 400 mg capsule Discontinued 800 mg PO DAILY December 22, 2020 12:00am May 08, 2024 9:54am administer with a meal Start: 12-22-2020 take [...] tablet (20 sources) Estrogen Start: 12-22-2020 take 1 tablet by mouth at bedtime Estradiol 0.5 mg tablet Active 0.5 mg PO AT BEDTIME December 22, 2020 12:00am Start: 05-30-2020 Estradiol 42.5 GM cream Active 1 NMA VAGINAL WE May 30, 2020 1:00am supplement Start: 05-30-2020 Estradiol Acti ve 1 EACH VAGINAL WE May 30, 2020 12:00am Start: 05-30-2020 End: 12-22-2020 take 0.5 mg by mouth once daily Estradiol 1 MG tablet Discontinued 0.5 mg PO DAILY May 30, 2020 1:00am December 22, 2020 3:45pm hormone Start: 05-30-2020 End: 12-22-2020 take 0.5 mg [...] Miscellaneous route. 0 Active Flaxseed Oil oil (4 sources) Flaxseed Oil oil 1,000 mg twice [...] Active linseed oil 1000 mg oral capsule (20 sources) Start: 11-01-2023 take 1 capsule by mouth once daily at mealtime Flaxseed Oil 1,000 mg capsule Active 1000 mg PO DAILY November 01, 2023 11:38am administer with meals Start: 12-22-2020 End: 11-01-2023 take 1 capsule by mouth twice daily at mealtime Flaxseed Oil 1,000 mg capsule Discontinued 1000 mg PO TWICE A DAY December 22, 2020 12:00am November 01, 2023 11:39am administer with meals 24 hr metoprolol succinate 25 mg extended release oral tablet (20 sources) beta-Adrenergic Ajit Start: 02-18-2025 take 0.5 tablet by mouth once daily metoprolol succinate ER (TOPROL XL) 25 mg 24 hr tablet Take 0.5 tablets by mouth once daily. 45 tablet 02/18/2025 Active Start: 01-25-2025 take 2 tablets by mo uth once daily Metoprolol Succinate 25 mg tablet extended release 24 hr Active 12.5 mg PO daily 15 January 25, 2025 12:00am Start: 02-04-2021 End: 02-05-2021 take 1 tablet by mouth twice daily Metoprolol Tartrate 25 mg tablet Discontinued 25 mg PO TWICE A DAY February 04, 2021 12:00am February 05, 2021 1:58pm Start: 02-16-2016 take 1 tablet by chen once daily metoprolol tartrate (LOPRESSOR) 25 MG tablet Take 25 mg by mouth daily . 0 02/16/2016 Active nitroglycerin 0.4 mg sublingual tablet (20 sources) Nitrate Vasodilator Start: 04-20-2016 End: 01-09-2025 nitroglycerin sublingual (NITROQUICK) 0.4 mg SL tablet [...] times daily. 60 tablet 1 03/13/2019 Active sodium chloride 0.154 meq/ml irrigation solution (1 source) Start: 9 sodium chloride 0.9 % irrigation sucralfate 1000 mg oral tablet (17 sources) Aluminum Complex Start: 9 End: 9 take 1 tablet by mouth every six hours sucralfate 1 g Tab Indications: Right upper quadrant pain Take 1 tablet by mouth every 6 hours. 60 tablet 3 11/23/2018 Active levothyroxine sodium 0.05 mg oral tablet (20 sources) l-Thyroxine Start: take 1 tablet by mouth once daily Levothyroxine 50 mcg tablet Active 50 ug PO DAILY December 11, 2024 12:00am Start: 10-04-2022 take 50 ug by mouth once daily Levothyroxine Active 50 MCG PO DAILY October 04, 2022 8:56am Start: 04-12-2020 End: 12-11-2024 take 2 tablets by mouth once daily levothyroxine (SYNTHROID) 25 mcg tablet Take 50 mcg by mouth once daily. 04/12/2020 Active Start: 04-12-2020 End: 10-04-2022 take 1 tablet by mouth once daily Levothyroxine 25 MCG tablet Discontinued 25 ug PO DAILY May 30, 2020 1:00am October 04, 2022 9:56am thyroid Start: 04-27-2016 End: 03-03-2020 take 1 tablet by mouth once daily levothyroxine (SYNTHROID, LEVOTHROID) 25 MCG tablet Take 25 mcg by mouth once daily . 0 04/27/2016 Active Comment on above: Take 25 mcg by mouth once daily. Completed/Discontinued Medications Medication Drug Class(es) Dates Sig (Normalized) Sig (Original) acetaminophen 325 mg oral tablet (17 sources) Start: 06-01-2020 End: 12-22-2020 Acetaminophen 325 MG tablet Discontinued 650 mg PO EVERY 6 HOURS NEEDED as needed for Pain Score 1-10/Temp > 100.7 F 0 June 01, 2020 1:00am December 22, 2020 3:47pm Start: 06-01-2020 End: 12-22-2020 take 650 mg by mouth every six hours as needed Acetaminophen Discontinued 650 MG PO EVERY 6 HOURS NEEDED June 01, 2020 12:00am December 22, 2020 2:47pm alendronic acid 70 mg oral tablet (19 sources) Bisphosphonate Start: 11-01-2023 End: 11-01-2023 take 1 tablet by mouth every week Alendronate (Fosamax) 70 mg tablet Discontinued 70 mg PO EVERY WEEK November 01, 2023 12:00am November 01, 2023 11:38am Start: 10-04-2022 End: 04-07-2023 take 1 tablet by mouth every week Alendronate 70 mg tablet Discontinued 70 mg PO EVERY WEEK October 04, 2022 12:00am April 07, 2023 9:52am amLODIPine 2.5 mg oral tablet (20 sources) Dihydropyridine Calcium Channel Ajit Start: 01-14-2021 End: 02-04-2021 take 1 tablet by mouth at bedtime Amlodipine 2.5 mg tablet Discontinued 2.5 mg PO AT BEDTIME January 14, 2021 12:00am February 04, 2021 4:58pm Start: 12-24-2020 End: 01-14-2021 take 1 tablet by mouth once daily Amlodipine 5 mg tablet Discontinued 5 mg PO DAILY 90 3 December 24, 2020 1:45pm January 14, 2021 1:49pm heart Start: 05-30-2020 End: 12-24-2020 take 1 tablet by mouth once daily Amlodipine 2.5 MG tablet Discontinued 2.5 mg PO DAILY May 30, 2020 1:00am December 24, 2020 1:46pm heart Start: 06-15-2019 End: 03-03-2020 take 1 tablet [...] (B. Coagulans)) 10 billion cell capsule,delayed release(DR/EC) (17 sources) Start: 12-24-2020 End: 01-23-2023 take 10 capsules by mouth once daily Bacillus Coagulans (Probiotic (B. Coagulans)) 10 billion cell capsule,delayed release(DR/EC) Discontinued 10 NMA PO DAILY December 24, 2020 12:00am January 23, 2023 6:19pm Start: 12-24-2020 End: 01-23-2023 take 10 capsules [...] on above: Take 2 capsules by m outh three times daily as needed. carvedilol 3.125 mg oral tablet (11 sources) alpha-Adrenergic Ajit, beta-Adrenergic Ajit Start: 12-14-2024 End: 01-25-2025 take 1 tablet by mouth twice daily Carvedilol 3.125 mg tablet Discontinued 3.125 mg PO TWICE A DAY 180 3 December 17, 2024 11:53am January 09, 2025 11:24am ciprofloxacin 500 mg oral tablet (17 sources) Quinolone Antimicrobial Start: 06-01-2020 End: 06-06-2020 take 1 tablet by mouth twice daily Ciprofloxacin Hcl 500 MG tablet Discontinued 500 mg PO TWICE A DAY 10 5 0 June 01, 2020 1:00am June 05, 2020 1:00am June 06, 2020 1:03am clopidogrel 75 mg oral tablet (20 sources) [id number] Platelet Inhibitor Start: 12-14-2024 End: 01-09-2025 take 1 tablet by mouth once daily Clopidogrel 75 mg tablet Discontinued 75 mg PO DAILY 90 3 December 17, 2024 11:53am January 09, 2025 11:24am Start: 04-21-2021 End: 06-25-2024 clopidogrel (PLAVIX) 75 mg t ablet TAKE 4 TABLETS BY MOUTH A SINGLE DOSE FOR A LOADING DOSE ON 10... (REFER TO PRESCRIPTION NOTES). 04/21/2021 06/25/2024 Discontinued (Course of therapy completed) Start: 04-20-2021 End: 04-07-2023 take 1 tablet by mouth once daily Clopidogrel (Plavix) 75 mg tablet Discontinued 75 mg PO DAILY 3 August 02, 2022 3:26pm October 04, 2022 10:43am Comment on above: TAKE 4 TABLETS BY [facility] A SINGLE DOSE FOR A LOADING DOSE ON 10... (REFER TO PRESCRIPTION NOTES). diphenhydrAMINE hydrochloride 25 mg oral capsule (17 sources) Histamine-1 Receptor Antagonist Start: End: take 1 capsule by mouth at bedtime Diphenhydramine Hcl 25 MG capsule Discontinued 25 mg PO AT BEDTIME May 30, 2020 1:00am June 01, 2020 11:40am seasonal allergies docusate sodium 100 mg oral capsule (20 sources) Start: End: take 1 capsule by mouth three times daily as needed Docusate Sodium 100 mg capsule Discontinued 100 mg PO THREE TIMES A DAY as needed December 22, 2020 12:00am December 24, 2020 1:07pm take 1 capsule by mouth twice da enoch docusate sodium (COLACE) 100 MG capsule Take 100 mg by mouth 2 (two) times a day. 0 Active take 1 capsule by mo uth three times daily as needed docusate (STOOL SOFTENER) 100 MG Cap capsule Take 100 mg by mouth 3 times daily as needed. 0 Active doxycycline monohydrate 100 mg oral capsule (17 sources) Tetracycline-class Drug Start: 09-11-2021 End: 01-06-2022 take 1 capsule by mouth twice daily Doxycycline Monohydrate 100 MG capsule Discontinued 100 mg PO TWICE A DAY 14 September 11, 2021 1:00am January 06, 2022 11:14am ferrous sulfate 325 mg oral tablet (17 sources) Start: 12-22-2020 End: 12-24-2020 take 1 tablet by mouth once daily Ferrous Sulfate 325 mg (65 mg iron) tablet Discontinued 325 mg PO DAILY December 22, 2020 12:00am December 24, 2020 1:06pm L.Acidoph, Paracasei,B. Lactis (10 sources) Start: 05-30-2020 End: 12-22-2020 L.Acidoph, Paracasei,B. Lactis Discontinued 1 EACH PO DAILY May 30, 2020 12:00am December 22, 2020 2:46pm Start: 05-30-2020 End: 12-22-2020 L.Acidoph, Paracasei,B. Lact is Discontinued 1 EACH PO DAILY May 30, 2020 1:00am December 22, 2020 3:46pm L.Acidoph,Paracasei,B.Animal is 1 EACH capsule (7 sources) Start: 05-30-2020 End: 12-22-2020 take 1 capsule by mouth once daily L.Acidoph,Paracasei,B.Animalis 1 EACH capsule Discontinued 1 NMA PO DAILY May 30, 2020 1:00am December 22, 2020 3:46pm supplement Start: 05-30-2020 End: 12-22-2020 take 1 capsule by mouth once daily L.Acidoph,Paracasei,B.Animalis 1 EACH ca psule Discontinued 1 NMA PO DAILY May 30, 2020 1:00am December 22, 2020 3:46pm lisinopril 20 mg oral tablet (20 sources) Angiotensin Converting Enzyme Inhibitor Start: 12-14-2024 End: 01-09-2025 take 1 tablet by mouth once daily Lisinopril 20 mg tablet Discontinued 20 mg PO DAILY 90 3 December 17, 2024 11:53am January 09, 2025 11:24am Start: 07-08-2022 End: 12-14-2024 Lisinopril 10 mg tablet Disc ontinued 0 .ROUTE .COMPLEX 135 3 December 13, 2024 8:42am December 14, 2024 9:46am take 1 AND 1/2 tablets by mouth once daily Start: 06-19-2021 End: 03-17-2023 Lisinopril Discontinued 0 .R OUTE .COMPLEX 135 August 02, 2022 2:26pm March 17, 2023 2:26pm take 1 AND 1/2 tablets by mouth once daily Start: 06-19-2021 End: 07-08-2022 Lisinopril 10 mg tablet Disc ontinued 15 mg PO DAILY June 19, 2021 2:09pm June 19, 2021 2:19pm 15 mg daily Start: 03-30-2021 End: 06-19-2021 take 1 tablet by mouth once daily Lisinopril 10 mg tablet Discontinued 10 mg PO DAILY March 30, 2021 10:57am June 19, 2021 2:00pm Start: 01-14-2021 End: 03-30-2021 Lisinopril 10 mg tablet Disc ontinued 15 mg PO DAILY 1 0 February 05, 2021 12:00am March 30, 2021 10:58am Start: 01-14-2021 End: 03-30-2021 take 15 mg by mouth once daily Lisinopril Discontinued 15 MG PO DAILY 1 February 04, 2021 11:00pm March 30, 2021 9:58am Start: 12-24-2020 End: 01-14-2021 take 1 tablet by mouth once daily Lisinopril 10 mg tablet Discontinued 10 mg PO DAILY 90 3 December 24, 2020 1:44pm January 14, 2021 1:50pm bp Start: 05-30-2020 End: 12-24-2020 Lisinopril 10 MG tablet Disc ontinued 15 mg PO DAILY May 30, 2020 1:00am December 24, 2020 1:46pm bp Start: 05-30-2020 End: 12-24-2020 take 15 mg [...] Atherosclerosis of coronary artery bypass graft of [place] heart without angina pectoris , Essential hypertension Take 1.5 tablets by mouth daily. 90 tablet 1 09/12/2018 01/12/2019 Discontinued (Reorder) Start: 03-14-2018 End: 09-05-2018 take 1.5 tablets by mouth once daily lisinopril 10 MG Tab tablet Indications: Atherosclerosis of coronary artery bypass graft of [place] heart without angina pectoris , Essential hypertension Take 1.5 tablets by mouth daily. 135 tablet 1 03/14/2018 09/05/2018 Discontinued Start: 05-03-2016 End: 03-13-2019 LISINOPRIL 10 MG Tab tablet Indications: Essential hypertension TAKE 1 AND 1/2 TABLETS BY MOUTH DAILY 90 tablet 0 01/12/2019 03/13/2019 Discontinued (Reorder) Comment on above: Take 10 mg by mouth once daily. Take 1.5 tablets daily metroNIDAZOLE 500 mg oral tablet (17 sources) Nitroimidazole Antimicrobial Start: 06-01-20 End: 06-06-20 take 1 tablet by mouth three times daily Metronidazole 500 MG tablet Discontinued 500 mg PO THREE TIMES A DAY 15 5 0 June 01, 2020 1:00am June 05, 2020 1:00am June 06, 2020 1:03am omeprazole 20 mg delayed release oral capsule (19 sources) Proton Pump Inhibitor Start: 11-24-19 19 End: 03-13-20 19 take 1 capsule by mouth twice daily [...] Discontinued rosuvastatin calcium 20 mg oral tablet (20 sources) HMG-CoA Reductase Inhibitor Start: 05-09-2020 End: 06-25-2024 take 1 tablet by mouth at bedtime Rosuvastatin 20 MG tablet Discontinued 20 mg PO AT BEDTIME May 30, 2020 1:00am February 19, 2022 12:52pm cholesterol lowering On Hold: Myalgias Start: 03-13-2019 End: 03-03-2020 take 1 tablet by mouth once daily rosuvastatin 20 MG tablet Indications: Atherosclerosis of coronary artery bypass graft of [place] heart without angina pectoris , Pure hypercholesterolemia Take 1 tablet by mouth daily. 90 tablet 1 03/03/2020 Active Comment on above: Take 20 mg by mouth once daily. simvastatin 20 mg oral tablet (20 sources) HMG-CoA Reductase Inhibitor Start: End: take 1 tablet by mouth once daily Simvastatin 20 mg tablet Discontinued 20 mg PO DAILY 90 3 December 17, 2024 11:54am January 09, 2025 11:24am Start: 02-19-2022 End: 12-14-2024 take 1 tablet by mouth once simvastatin (ZOCOR) 10 mg tablet Take 1 tablet by mouth every afternoon. 04/27/2024 Active Start: 03-17-2016 End: 03-13-2019 take 1 tablet by mouth once daily simvastatin (ZOCOR) 40 MG tablet Take 40 mg by mouth daily . 0 03/17/2016 Active ticagrelor 90 mg oral tablet (20 sources) Start: 02-04-2021 End: 04-20-2021 take 1 tablet by mouth twice daily Ticagrelor (Brilinta) 90 mg tablet Discontinued 90 mg PO TWICE A DAY 60 2 March 30, 2021 11:16am April 20, 2021 4:44pm Problems Active Problems Problem Classification Problem Date Documented Date Episodic/Chronic Abdominal hernia (1 source) Hiatal hernia; Translations: [Hiatal hernia] Episodic Abdominal pain (20 sources) Right upper quadrant pain; Translations: [Epigastric pain] Onset: 01-24-2019 Resolved: 03-13-2019 03-22-2017 Episodic Cancer of breast (20 sources) Malignant tumor of breast ; Translations: [Malignant neoplasm of unspecified site of unspecified female breast] Onset: 12-24-2024 12-23-2020 Chronic Cardiac dysrhythmias (20 sources) Drug-induced bradycardia; Translations: [Bradycardia, drug induced] Onset: 06-21-2017 06-21-2017 Chronic Complication of device; implant or graft (20 sources) Arteriosclerosis of coronary artery bypass graft; Translations: [Atherosclerosis of coronary artery bypass graft without angina pectoris] 03-22-2017 Chronic Coronary atherosclerosis and other heart disease (20 sources) Coronary arteriosclerosis; Translations: [Coronary atherosclerosis] Onset: 10-20-2016 Resolved: 02-04-2021 10-20-2016 Chronic Comment on above: CABG x 1 AUGUSTINE-LAD [id number] 1998; HTR-Rmbzzoien-[id number] and mid RCA w/ CARLENE-distal, mid and proximal RCA; FFR LEFT CIRCUMFLEX: Moderate OM disease with FFR = 0.89 02/03/2021 Coronary atherosclerosis and other heart disease (20 sources) History of coronary artery bypass grafting; Translations: [Presence of aortocoronary bypass graft] Onset: 06-16-1999 01-08-2019 Episodic Coronary atherosclerosis and other heart disease (3 sources) Coronary atherosclerosis and other heart disease Disorders of lipid metabolism (20 sources) Hyperlipidemia; Translations: [Pure hypercholesterolemia] Onset: 10-20-2016 Resolved: 03-29-2017 10-20-2016 Chronic Esophageal disorders (1 source) Gastro-esophageal reflux disease without esophagitis; Translations: [Gastroesophageal reflux disease without esophagitis] Chronic Essential hypertension (20 sources) Hypertensive disorder; Translations: [Essential hypertension] Onset: 10-20-2016 10-20-2016 Chronic Fluid and electrolyte disorders (14 sources) Hyponatremia; Translations: [Acute hyponatremia] 01-23-2023 Episodic Joint disorders and dislocations; trauma-related (2 sources) Unspecified internal derangement of left knee; Translations: [Unspecified internal derangement of knee] Chronic Menopausal disorders (20 sources) Atrophic vaginitis; Translations: [Postmenopausal atrophic vaginitis] 03-22-2017 Chronic Noninfectious gastroenteritis (17 sources) Acute gastroenteritis; Translations: [Noninfective gastroenteritis and colitis, unspecified] 12-22-2020 Episodic Nonspecific chest pain (20 sources) Chest pain; Translations: [Chest pain, unspecified] Onset: 02-01-2021 Resolved: 02-04-2021 02-04-2021 Episodic Open wounds of extremities (17 sources) Cat bite - wound; Translations: [Open [...] injuries and conditions due to external causes (17 sources) Puncture wound - injury; Translations: [Other [...] lower leg] Episodic Other non-traumatic joint disorders (12 sources) Ankle pain; Translations: [Pain in left [...] conditions (not mental disorders or infectious disease) (20 sources) Thallium stress test abnormal; Translations: [Abnormal result of other cardiovascular function study] Onset: 12-24-2024 01-26-2021 Episodic Other upper respiratory infections (1 source) Upper respiratory infection; Translations: [Acute upper respiratory infection, unspecified] Episodic Prolapse of female genital organs (20 sources) Cystocele; Translations: [Female bladder prolapse] 03-22-2017 Chronic Residual codes; unclassified (20 sources) Postmenopausal state; Translations: [Post-menopausal] 03-22-2017 Episodic Skin and subcutaneous tissue infections (17 sources) Cellulitis of hand; Translations: [Cellulitis of right upper limb] 09-19-2021 Episodic Spondylosis; intervertebral disc disorders; other back problems (20 sources) Sciatica; Translations: [Sciatica, right side] 03-22-2017 Episodic Sprains and strains (14 sources) Sprain of ankle; Translations: [Sprain of unspecified ligament of left ankle, initial encounter] 10-21-2022 Episodic Thyroid disorders (20 sources) Hypothyroidism; Translations: [Acquired hypothyroidism] 03-22-2017 Chronic Unclassified (3 sources) Drug therapy finding; Translations: [Hormone replacement therapy (postmenopausal)] 03-22-2017 Unclassified (6 sources) Z95.5 - Presence of coronary angioplasty implant and graft,I25.10 - Atherosclerotic heart disease of [place] coronary artery without angina pectoris,R79.89 - Other specified abnormal findings of blood chemistry,Z95.1 - Presence of aortocoronary bypass graft,I10 - Essential (primary) hypertension,E78.00 - Pure hypercholesterolemia, unspecified,C50.911 - Malignant neoplasm of unspecified site of right female breast,C50.912 - Malignant neoplasm of unspecified site of left female breast Unclassified (3 sources) History of coronary artery stent placement Unclassified (3 sources) Elevated troponin level Unclassified (3 sources) History of coronary artery bypass surgery Unclassified (3 sources) Malignant neoplasm of breast Varicose veins of lower extremity (15 sources) Varicose veins of lower limb co-occurrent with edema; Translations: [Varicose veins of left lower extremity with other complications] 11-11-2022 Episodic Past or Other Problems Problem Classification Problem Date Documented Date Episodic/Chronic Complication of device; implant or graft (14 sources) Coronary stent occluded; Translations: [Coronary stent occlusion, sequela] Onset: 01-08-2019 01-08-2019 Episodic Residual codes; unclassified (14 sources) Family history of ischemic heart disease and other diseases of the circulatory system; Translations: [Family history of coronary artery disease] Onset: 01-08-2019 Resolved: 03-13-2019 01-08-2019 Episodic Residual codes; unclassified (17 sources) History of cardiac catheterization; Translations: [Other specified postprocedural states] Onset: 01-26-2021 01-26-2021 Episodic Comment on above: 05/13/99, 06/29/99, 2009, 01/26/21 Unclassified (16 sources) Patient encounter status; Translations: [Pre-operative cardiovascular examination] Onset: 01-08-2019 Resolved: 03-13-2019 01-08-2019 Results Test Name Value Interpretation Reference Range Facility [facility] 02-18-2025 CNOV Office Visit (JOSE ) BEN ARROYO ([id number]) 1945 F [facility] Date Time Provider Department 02/18/25 1:00 PM YESSICA GREENE During your visit today, we recorded the following information about you: Pulse Respiration Blood pressure Weight 63/minute 12/minute 126/60 43.1 kg Height 1.499 m Ml Vizcaino LPN 02/18/2025 3:59 PM Signed Cardiac stent palced on 12/13/2024 at [facility] by , [place] Turner 3.0mmx 12 mm, ref# [id number], Lot # [id number] exp 08/23/2027 Yessica Greene MD 02/18/2025 3:59 PM Signed Yessica Greene MD Interventional Cardiology [address] [place] [address] [phone] Chief Complaint Patient presents with: Follow Up: 6 month follow up, stent placed at [facility] on 12/13/24 by - second opinion, currently seeing [facility] HISTORY OF PRESENT ILLNESS: Mrs. Arroyo is a 79-year-old female with a history of severe CAD, status post-CABG in 1998, and prior PCI with CARLENE placement in the proximal and mid-RCA in 2020, presenting for follow-up. She reports a recent hospitalization on December 13 due to severe chest pain, described as the worst she has experienced. An abnormal stress test was performed, leading to the diagnosis of in-stent restenosis of the ostial-proximal RCA. She underwent successful PCI with placement of an [place] Turner 3x12 mm stent within the previous stent. The procedure was performed via left radial artery access. Following the procedure, she initially experienced chest pain but reports improvement after starting cardiac rehabilitation and a medication change from amlodipine to metoprolol. She denies current chest pain, dyspnea, or leg swelling. She has a family history of premature CAD, with her daughter diagnosed at age 45 and her own diagnosis at age 54. She denies smoking or alcohol use and exercises regularly, attending cardiac rehabilitation and previously participating in activities at [employer] three times a week. Current medications include aspirin, lisinopril 20 mg daily, metoprolol 12.5 mg daily, simvastatin 20 mg daily, and Plavix 75 mg daily. Recent lipid panel results show total cholesterol of 169 mg/dL, triglycerides of 81 mg/dL, and LDL of 74 mg/dL. Cardiac Risk Factors age (male over 45, [...] HYSTERECTOMY FAMILY HISTORY Family history unknown: Yes SOCIAL HISTORY[1] ALLERGIES Allergen Reactions Lactose Diarrhea Penicillins Hives Medications: Current Outpatient Medications Medication Sig Dispense Refill clopidogrel (PLAVIX) 75 mg tablet Take 75 mg by mouth once daily. Cranberry 400 mg cap Take 800 mg by mouth once daily. simvastatin (ZOCOR) 10 mg tablet Take 1 tablet by mouth every afternoon. (Patient taking differently: Take 20 mg by mouth every afternoon.) lisinopril (ZESTRIL) 10 mg tablet Take 15 mg by mouth once daily. Take 1.5 tablets daily (Patient taking differently: Take 20 mg by mouth once daily. Take 1.5 tablets daily) Estradiol (ESTRACE) 0.5 mg tablet Take 0.5 [...] the tongue every 5 minutes as needed. metoprolol succinate ER (TOPROL XL) 25 mg 24 hr tablet Take 0.5 tablets by mouth once daily. 45 tablet biotin 100 mg/gram powd Take by mouth. (Patient not taking: Reported on 02/18/2025) No current facility-administered medications for this visit. Review of Systems Constitutional: Negative for chills, diaphoresis, fever, malaise/fatigue and weight loss. HENT: Negative for congestion, ear discharge, ear pain, hearing loss, nosebleeds, sinus pain, sore throat and tinnitus. Eyes: Negative for blurred vision, double vision, photophobia, pain, discharge and redness. Respiratory: Negative for cough, hemoptysis, sputum production, shortness of breath, wheezing and stridor. Cardiovascular: Negative for chest pain, palpitations, orthopnea, claudication, leg swel (more content not included)... Normal [facility] Cardiac Cath Interventionon 02-11-2025 Cardiac Cath Intervention [facility] Imaging Services [address] [place] [address] Cardiac Cath Intervention MR#: [id number] Acct: [id number] Name: BEN ARROYO Rep #: [id number] : 1945 79 From: Sukumar Saldaña MD PCP: Dr. Adela Harley MD Status:DIS MAUREEN Patient Name: BEN ARROYO Study Date: 12/13/2024 Performing: Sukumar Saldaña MD Ht: 59.5 inches 151.13 cm : 1945 Wt: 92.81 lbs 42.1 kg Age: 79 Gender: female BSA: 1.34 PROCEDURE(S) PERFORMED DC02-(67704)LHC/COR IC12-(66920/C9600)CARLENE W/WO PTCA, SINGLE CORONARY ARTERY IC11A-(27227)CORONARY INTRAVASCULAR LITHOTRIPSY CLINICAL PROFILE AND CO-MORBIDITIES Indications: New Onset Angina <= 2 months Heart Failure: None Stress/Imaging Stress Test w/SPECT MPI: Yes Result: Positive High Risk Stress Test with SPECT MPI: Positive High Risk Angina Classification Anginal Classification w/in 2 Weeks: CCS IV CAD Presentations: Unstable angina. 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 The risks and benefits of the procedure as well as a full description of our services here and lack of surgical backup were fully explained to the patient and/or their significant other prior to the catheterization. The Timeout was completed, verifying the correct patient and procedure. The patient's procedural site was prepped and draped in the usual fashion. Local anesthetic was given subcutaneously to left radial region with Lidocaine 2%. Using a modified Seldinger technique, arterial access was obtained via the left femoral artery, a 6Fr sheath was inserted.. Left internal mammary artery graft to the LAD selective angiography was performed in multiple views using a 5 Fr. IM catheter. Left Coronary Artery selective angiography was performed in multiple views using a 5 Fr. JL3.5 catheter. Right Coronary Artery selective angiography was then performed in multiple views using a 6 Fr. MPB 2The images were reviewed and options discussed. A decision was then made to proceed with an Intervention, IVUS or other adjunct procedure. JR4 Guide catheter was inserted but unable to engage into the RCA. AL 0.75 Guide catheter was inserted but unable to engage into the RCA. AR2 Guide catheter was inserted but not engaged into the RCA. 3DRC Guide catheter was inserted and engaged into the RCA. Runthrough Guide wire was advanced to the RCA. NC Emerge 2.5 x 12 Balloon catheter was inserted. Runthrough (2) Guide wire was inserted as a bell wire NC Emerge 2.5 x 12 Balloon catheter was reinserted Emerge 2.0 x 15 Balloon catheter was inserted. Emerge 2.0 x 15 Balloon catheter was reinserted Balloon catheter was advanced across lesion in the right coronary, ostial. PTCA balloon inflated at 14 atms for 28 secs. PTCA balloon inflated at 14 atms for 15 secs. NC Emerge 2.5 x 12 Balloon catheter was reinserted Balloon catheter was advanced across lesion in the right coronary, ostial. PTCA balloon inflated at 18 atms for 27 secs. PTCA balloon inflated at 20 atms for 25 secs. Aj Turner 3.0 x 12 Drug Eluting stent was inserted. Drug Eluting stent was advanced across the lesion in the right coronary, ostial. NC Emerge 3.25 x 12 Balloon catheter was inserted. Balloon catheter was advanced across lesion in the right coronary, ostial. Angiogram performed post stent deployment. The arterial sheath was pulled and a TR Band was applied for hemostasis CORONARY ANGIOGRAPHY DOMINANCE: Right Dominant LEFT HEART ASSESSMENT LVEDP: 9 mmHg LEFT MAIN: Angiographically normal LEFT ANTERIOR DESCENDING ARTERY: LAD: In-Stent Restenosis 95% Proximal lesion in LAD OM 1: Tubular 65% Proximal lesion in MARG1 OM 2: Tubular 65% Proximal lesion in MARG1 RIGHT CORONARY ARTERY: RCA: In-Stent Restenosis 95% Ostial lesion in RCA, STENT to 95% INTERVENTION INFORMATION LESION SITE: RCA (Ostial) Lesion Complexity: High/C, lesion length: 10 mm, culprit lesion: Yes, In-stent restenosis: Yes Pre Stenosis: 99 % Pre intervention ALEX flow: 3 PROCEDURE: IVL, Drug Eluting Stent with pre and post dilatation Post Stenosis: 0 % Post intervention ALEX flow: 3 Lesion Devices: Terumo .014 180cm Runthrough Extra Floppy straight Cordis 6 Fr 3DRC 100cm Guide Catheter Terumo .014 180cm Runthrough Extra Floppy straight [employer] NC EMERGE MR 2.50x12 BALLOON Rodney Sci EMERGE MR 2.00x15 BALLOON [employer] Shockwave IVL 2.5x12 Medtronic 3.0 x 12 AJ FRONTIER CARLENE [employer]ney [employer] NC EMERGE MR 3.25x12 BALLOON COMPLICATIONS No Complications [place] (more content not included)... Normal [facility] Cardiology Visit Reporton Cardiology Visit Report [facility] [address] [place] [address] OFFICE VISIT Date of Service: 01/09/25 MR#: [id number] Acct: [id number] Name: BEN ARROYO Rep #: [id number] : 1945 Provider: Dr. Khanh metzger MD Age/Sex: 79/F Location: [facility] Status: Signed HPI HPI History of Present Illness Details: Patient is a very pleasant 79-year-old white female who comes in today for monitoring of her cardiovascular disease. The patient was recently hospitalized early December 2024. She came in with some abdominal discomfort radiating up into her chest and up into the neck area which resembled her previous anginal symptoms. The patient had a stress test on December 12, 2024 the patient had significant inferior ST depressions with pharmacologic infusion of Lexiscan there was a moderate size reversible defect in the anterior wall but the patient has breast implants. The patient was taken to the Sample Cutter where restenosis of the stented segment of the ostial right coronary was documented. This was subsequently restented and redilated. The patient recovered and was discharged to home and is now participating in cardiac rehab. Her LV function was 50% by echo done December 12, 2024 there was noted an aneurysmal atrial septum moderately calcified aortic valve consistent with aortic valve sclerosis with no stenosis it was mild to moderate aortic valve regurgitation. There were suboptimal images due to her breast implants. Patient carries a history of hypertension which is well-controlled and she has a history of hyperlipidemia which is adequately controlled on simvastatin 20 mg daily. The patient is appropriately concerned about restenosis of her stents. She actually had remote stenting at [facility] of the LAD this restenosed shortly and she underwent a AUGUSTINE to the LAD and [facility] by minimally invasive thoracotomy. She subsidy underwent complex stenting with shockwave balloon therapy in 2020 and she had moderate disease in OM branch of the circumflex with a negative FFR. Her circumflex lesion was estimated at 65% on her cath December 13, 2024. She had no ischemia in the posterior wall. The patient had presented with severe hypertension that was treated with IV nitro. She was only on lisinopril 10 mg daily in her home environment her blood pressure was 198/90 on presentation. Currently her blood pressure is 128/74 on her current medical therapy of carvedilol and lisinopril. The patient denies any recurrence of her anginal symptoms she is participating in cardiac rehab and wanted to get back into a more vigorous exercise program. The patient does complain of some fatigue and generalized weakness that was present previously when she was on a combination of aspirin and Plavix. I told her we cannot interrupt this for any reason for 6 months and preferably she should stay on it for 1 year which would be December 2025. Intake Vital Signs 12/24/24 14:18 01/09/25 11:01 Height 4 ft 11.5 in 4 ft 11.5 in Weight: 94 lb BMI 18.6 BP 128/74 H Blood Pressure Location Lt brachial Position Sitting Respiration 18 Pulse 51 L Pulse Source Monitor Pulse Oximetry (%) 97 Oxygen Delivery Method room air Intake Visit Reasons: 1 Y FU/ S/P [facility] Unstable Angina Manager Division Required: No Accompanied by: Self Is patient in pain?: No Allergies lactose Adverse Reaction (Verified 01/09/25 11:02) Upset Stomach metoprolol Adverse Reaction (Verified 01/09/25 11:02) dizziness Penicillins Adverse Reaction (Verified 01/09/25 11:02) Hives Medications ???Medication ???Instructions ???Recorded ???Confirmed ???Type aspirin 81 mg chewable tablet 81 mg PO DAILY@0800 heart 05/30/20 01/09/25 History estradiol 0.01% (0.1 mg/gram) 1 ea vaginal WE supplement 0 01/09/25 History vaginal cream estradiol 0.5 mg tablet 0.5 mg PO QHS 12/22/20 01/09/25 Hi story flaxseed oil 1,000 mg capsule 1,000 mg PO DAILY 11/01/23 5 History cholecalciferol (vitamin D3) 50 50 mcg PO QDAY supplement 05/08/24 01/09/25 History mcg (2,000 unit) capsule cranberry fruit 400 mg capsule 400 mg PO DAILY 05/08/24 01/09/25 History levothyroxine 50 mcg tablet 50 mcg PO DAILY 12/11/24 01/09/25 History carvedilol 3.125 mg tablet 3.125 mg PO BID #180 tabs 01/09/25 01/09/25 Rx clopidogrel 75 mg tablet 75 mg PO DAILY #90 tabs 01/09/25 0 01/09/25 Rx lisinopril 20 mg tablet 20 mg PO DAILY #90 tabs 01/09/25 0 01/09/25 Rx nitroglycerin 0.4 mg sublingual 0.4 mg sublingual Q5M PRN chest 01/09/25 Rx tablet pain #25 tabs simvastatin 20 mg tablet 20 mg PO DAILY #90 tabs 01/09/25 0 01/09/25 Rx Ejection fraction %: 50 Have you fallen in the past year?: No PFSH Medical History Uncontro (more content not included)... Normal [facility] CR - History AND Physicalon 12-24-2024 CR - History & Physical [facility] Cardiac Rehab [address] [place] [address] CR - History Physical MR#: [id number] Acct: [id number] Name: BEN ARROYO Rep #: [id number] : 1945 79 From: Adi FERGUSON, RVT PCP: Dr. Adela Harley MD DOS: 12/24/24 CR - History Physical General Arrival date:: 12/24/24 Arrival time:: 14:07 Date of Referral:: 12/13/24 Date of CR Evaluation:: 12/24/24 Referring Physician: Dr. Saldaña Primary Diagnosis: PCI with stent History of Present Cardiac Event Onset Date PTCA or coronary stenting:: Yes (onset 12/13/24) Vessel: RCA Medications Ambulatory Orders ???Medication ???Instructions ???Recorded aspirin 81 mg chewable tablet 81 mg PO DAILY@0800 heart 05/30/20 estradiol 0.01% (0.1 mg/gram) 1 ea vaginal WE supplement 0 vaginal cream estradiol 0.5 mg tablet 0.5 mg PO QHS 12/22/20 nitroglycerin 0.4 mg sublingual 0.4 mg sublingual Q5M PRN chest tablet pain #25 tabs flaxseed oil 1,000 mg capsule 1,000 mg PO DAILY 11/01/23 cholecalciferol (vitamin D3) 50 50 mcg PO QDAY supplement 05/08/24 mcg (2,000 unit) capsule cranberry fruit 400 mg capsule 400 mg PO DAILY 05/08/24 levothyroxine 50 mcg tablet 50 mcg PO DAILY 12/11/24 carvedilol 3.125 mg tablet 3.125 mg PO BID #180 tabs 12/17/24 clopidogrel 75 mg tablet 75 mg PO DAILY #90 tabs 12/17/24 lisinopril 20 mg tablet 20 mg PO DAILY #90 tabs 12/17/24 simvastatin 20 mg tablet 20 mg PO DAILY #90 tabs 12/17/24 Allergies Allergies lactose Adverse Reaction (Verified 12/11/24 18:34) Upset Stomach metoprolol Adverse Reaction (Verified 12/11/24 18:34) dizziness Penicillins Adverse Reaction (Verified 12/11/24 18:34) Hives Sleep Disorder Evaluation Hx of Sleep Apnea: No Do you snore loudly (louder than talking or can be heard through closed doors)?: No Do you often feel tired/ fatigued/ sleepy during daytime?: No Has anyone observed you stop breathing during sleep?: No History of Hypertension (for STOP score): Yes STOP Results: Negative Advanced Directives Advanced Directives Do you have a Healthcare Power of Order Processor?: Yes Living Will: Yes Advance Directives Information Provided: Yes Advance Directives on File: Yes DNR Order?:: No Past Medical History Covid-19 Screening Physicial Symptoms Other Clinical Concerns Exposure Risk Pertinent Comorbidities 65 years or older:: Yes Has a serious heart condition:: Yes Past Medical Illness Past Medical History (Updated 12/22/24 @ 00:01 by Background Daemon) Uncontrolled hypertension I10 Elevated troponin R79.89 Chest pain R07.9 Unstable angina I20.0 Breast cancer C50.919 Osteopenia M85.80 Hiatal hernia K44.9 Osteoarthritis M19.90 IBS (irritable bowel syndrome) K58.9 History of hepatitis A Z86.19 Anemia D64.9 Atherosclerosis of coronary artery of [place] heart without angina pectoris I25.10 CABG x 1 AUGUSTINE-LAD 06/16/99 ABT-JWLNC-CEV 1998; CDD-Hflicnrhj-qrmrnu and mid RCA w/ CARLENE-distal, mid and proximal RCA; FFR LEFT CIRCUMFLEX: Moderate OM disease with FFR = 0.89 02/03/2021 Essential hypertension I10 GERD (gastroesophageal reflux disease) K21.9 Anxiety F41.9 Arthritis M19.90 Hyperlipidemia E78.5 Hypothyroidism E03.9 Past Surgical History Past Surgical History (Updated 12/22/24 @ 00:01 by Background Daemon) History of coronary artery stent placement (12/13/24) Z95.5 [id number] 1998; ABW-Njjiiydqy-swtfph and mid RCA w/ CARLENE-distal, mid and proximal RCA; FFR LEFT CIRCUMFLEX: Moderate OM disease with FFR = 0.89 02/03/2021; 12/13/2024: CARLENE (in stent restenosis) to Ostial and Proximal RCA using Aj Turner 3.0 x12mm . Previously deployed stent to RCA with struts in aorta, engaged [facility] [address] DR guide. H/O coronary artery bypass surgery (06/16/99) Z95.1 CABG x 1 AUGUSTINE-LAD 06/16/99 History of left heart catheterization (01/26/21) Z98.890 05/13/99, 06/29/99, 2009, 01/26/21 History of bilateral breast implants Z98.82 History of shoulder surgery Z98.890 History of hammer toe correction Z98.890, Z87.39 History of bunionectomy Z98.890 History of cholecystectomy Z90.49 History of cataract surgery Z98.49 History of bilateral mastectomy Z90.13 History of right knee surgery Z98.890 History of hysterectomy Z90.710 Surgical History: cholecystectomy, coronary bypass surgery and hysterectomy Family History Summary Family History Sister Breast cancer Grandmother Breast cancer Father CVA (cerebral vascular accident) Myocardial infarction Mother Parkinson's disease Brother Seizures CVA (cerebral vascular accident) Social History Smoking History Smoking Status: Never smoker Alcohol Use Alcohol Usage: No Occupation Occupation (List type of work in comments):: Retired Social Environment Status Marital Status: Current L (more content not included)... Normal [facility] Anion gap in Serum or Plasma Ordered By: Sukumar Saldaña on 12-14-2024 Anion gap [Moles/Vol] 13 mmol/L 5-15 [facility] BUN/creatinine ratioOrdered By: Sukumarmary Saldaña on 12-14-2024 Urea nitrogen/Creatinine [Mass ratio] 16.2 mg/mg 10- [facility] Bilirubin, totalOrdered By: Sukumarmary Saldaña on 12-14-2024 Bilirubin [Mass/Vol] 0.85 mg/dL 0.00-1.30 [facility] CBC-Complete Blood Cnt No Di ffon 12-14-2024 Erythrocyte distribution width (RBC) [Ratio] 12.9 % Normal 11.6-14.6 [facility] Comment on above: Performed By: #### L 100.0500, L500.4050 #### [facility] [address] [place], [address] Hematocrit (Bld) [Volume fraction] 33.4 % Low 37-47 [facility] Comment on above: Performed By: #### L 100.0500, L500.4050 #### [facility] [address] [place], [address] Hemoglobin (Bld) [Mass/Vol] 11.5 g/dL Low 12.0-15.0 [facility] Comment on above: Performed By: #### L 100.0500, L500.4050 #### [facility] [address] [place], [address] MCH (RBC) [Entitic mass] 29.1 pg Normal 27.0-32.0 [facility] Comment on above: Performed By: #### L 100.0500, L500.4050 #### [facility] [address] [place], [address] MCHC (RBC) [Mass/Vol] 34.4 g/dL Normal 32-36 [facility] Comment on above: Performed By: #### L 100.0500, L500.4050 #### [facility] [address] [place], [address] MCV (RBC) [Entitic vol] 84.6 fL Normal 81-99 [facility] Comment on above: Performed By: #### L 100.0500, L500.4050 #### [facility] [address] [place], [address] Platelet mean volume (Bld) [Entitic vol] 9.8 fL Normal 6.2-12.0 [facility] Comment on above: Performed By: #### L 100.0500, L500.4050 #### [facility] [address] [place], [address] Platelets (Bld) [#/Vol] 269 10*3/uL Normal 150-450 [facility] Comment on above: Performed By: #### L 100.0500, L500.4050 #### [facility] [address] [place], [address] RBC (Bld) [#/Vol] 3.95 10*6/uL Low 4.2-5.4 [facility] Comment on above: Performed By: #### L 100.0500, L500.4050 #### [facility] [address] [place], [address] RDW SD 40.0 fl Normal 35.1-43.9 [facility] Comment on above: Performed By: #### L 100.0500, L500.4050 #### [facility] [address] [place], [address] WBC (Bld) [#/Vol] 12.4 10*3/uL High 4.4-11.0 [facility] Comment on above: Performed By: #### L 100.0500, L500.4050 #### [facility] [address] [place], [address] Carbon dioxide, total [Moles /volume] in Central venous bloodOrdered By: Sukumar Saldaña on 12-14-2024 CO2 [Moles/Vol] 18.5 mmol/L Low 21.0-32.0 [facility] Chloride assayOrdered By: Vic Saldaña on 12-14-2024 Chloride [Moles/Vol] 99 mmol/L 98-108 [facility] Comprehensive Metabolic Prof ilon 12-14-2024 Albumin [Mass/Vol] 4.0 g/dL Normal 3.4-4.8 [facility] Comment on above: Performed By: #### L 500.4100, L100.0100, L501.9520, L501.4700, L500.4050 #### [facility] [address] [place], [address] Albumin/Globulin [Mass ratio] 1.5 {ratio} Normal 0.9-2.4 [facility] Comment on above: Performed By: #### L 500.4100, L100.0100, L501.9520, L501.4700, L500.4050 #### [facility] [address] [place], [address] ALK PHOS 54 U/L Normal 35-104 [facility] Comment on above: Performed By: #### L 500.4100, L100.0100, L501.9520, L501.4700, L500.4050 #### [facility] [address] [place], [address] ALT [Catalytic activity/Vol] 12 U/L Normal <=34 [facility] Comment on above: Performed By: #### L 500.4100, L100.0100, L501.9520, L501.4700, L500.4050 #### [facility] [address] [place], [address] AST [Catalytic activity/Vol] 44 U/L High <=31 [facility] Comment on above: Performed By: #### L 500.4100, L100.0100, L501.9520, L501.4700, L500.4050 #### [facility] [address] [place], [address] Bilirubin [Mass/Vol] 0.85 mg/dL Normal 0.00-1.30 [facility] Comment on above: Performed By: #### L 500.4100, L100.0100, L501.9520, L501.4700, L500.4050 #### [facility] [address] [place], [address] BUN/CRE 16.2 RATIO Normal 10-20 [facility] Comment on above: Performed By: #### L 500.4100, L100.0100, L501.9520, L501.4700, L500.4050 #### [facility] [address] [place], [address] Calcium [Mass/Vol] 8.7 mg/dL Normal 7.6-11.0 [facility] Comment on above: Performed By: #### L 500.4100, L100.0100, L501.9520, L501.4700, L500.4050 #### [facility] [address] [place], [address] Chloride [Moles/Vol] 99 mmol/L Normal 98-108 [facility] Comment on above: Performed By: #### L 500.4100, L100.0100, L501.9520, L501.4700, L500.4050 #### [facility] [address] [place], [address] CO2 [Moles/Vol] 18.5 mmol/L Low 21.0-32.0 [facility] Comment on above: Performed By: #### L 500.4100, L100.0100, L501.9520, L501.4700, L500.4050 #### [facility] [address] [place], [address] Creatinine [Mass/Vol] 0.55 mg/dL Low 0.70-1.20 [facility] Comment on above: Performed By: #### L 500.4100, L100.0100, L501.9520, L501.4700, L500.4050 #### [facility] [address] [place], [address] ECRCL 39.14 ml/min Low 50-250 [facility] Comment on above: Performed By: #### L 500.4100, L100.0100, L501.9520, L501.4700, L500.4050 #### [facility] [address] [place], [address] GAP 13 Normal 5-15 [facility] Comment on above: Performed By: #### L 500.4100, L100.0100, L501.9520, L501.4700, L500.4050 #### [facility] [address] [place], [address] GFR/1.73 sq M.predicted among non-blacks MDRD (S/P/Bld) [Vol rate/Area] 95 mL/min/{1.73_m2} Normal >60 [facility] Comment on above: Result Comment: mL/m in/1.73m2 CKD-EPI Creatinine Equation (2020) Performed By: #### L 500.4100, L100.0100, L501.9520, L501.4700, L500.4050 #### [facility] [address] [place], [address] Globulin (S) [Mass/Vol] 2.7 g/dL Normal 2.2-4.2 [facility] Comment on above: Performed By: #### L 500.4100, L100.0100, L501.9520, L501.4700, L500.4050 #### [facility] [address] [place], [address] Glucose [Mass/Vol] 85 mg/dL Normal 70-99 [facility] Comment on above: Performed By: #### L 500.4100, L100.0100, L501.9520, L501.4700, L500.4050 #### [facility] [address] [place], [address] Potassium [Moles/Vol] 3.9 mmol/L Normal 3.3-5.1 [facility] Comment on above: Performed By: #### L 500.4100, L100.0100, L501.9520, L501.4700, L500.4050 #### [facility] [address] [place], [address] Sodium [Moles/Vol] 130 mmol/L Low 133-145 [facility] Comment on above: Performed By: #### L 500.4100, L100.0100, L501.9520, L501.4700, L500.4050 #### [facility] [address] [place], [address] T PROT 6.6 g/dL Normal 5.9-8.4 [facility] Comment on above: Performed By: #### L 500.4100, L100.0100, L501.9520, L501.4700, L500.4050 #### [facility] [address] [place], [address] Urea nitrogen [Mass/Vol] 9 mg/dL Normal 4-19 [facility] Comment on above: Performed By: #### L 500.4100, L100.0100, L501.9520, L501.4700, L500.4050 #### [facility] [address] [place], [address] Discharge Instructionon 12-02 Discharge Instruction [facility] Medical Records Department [address] [place] [address] Instructions for Home/Discharge Instructions 12/14/24 0943 MR#: [id number] Acct: [id number] Name: BEN ARROYO Rep #: [id number] : 1945 79 From: Ramón Qiu DO PCP: Dr. Adela Harley MD Status:ADM MAUREEN Discharge Instructions Diet Discharge Diet: No restrictions DC O2, CPAP, BIPAP needs Home O2 Discharge instructions: No Dressing / Incision Discharge Activity: Return to Normal Activity Weight Bearing Status: Full weight bearing Follow Up Care Test Results: Test results from this visit will be discussed in further detail at your follow-up appointment, if applicable. Discharge Plan Admission Admit Date/Time: 12/12/24 01:34 Primary Reason for Your Visit: Unstable angina Attending Provider: Ramón Qiu Primary Care Provider: Adela Harley Consulting Providers: Khanh Hernandez; Mary Anne Tijerina Discharge Orders/Prescriptions Prescriptions: New lisinopril 20 mg Tablet 20 mg PO DAILY Qty: 30 0RF clopidogrel 75 mg Tablet 75 mg PO DAILY Qty: 30 0RF carvedilol 3.125 mg Tablet 3.125 mg PO BID Qty: 60 0RF simvastatin 20 mg tablet 20 mg PO DAILY Qty: 30 0RF Continued estradiol 0.5 mg tablet 0.5 mg PO QHS Patient Comments: take 1 tablet by mouth once daily flaxseed oil 1,000 mg capsule 1,000 mg PO DAILY Rx Instructions: administer with meals cranberry fruit 400 mg capsule 400 mg PO DAILY Rx Instructions: administer with a meal aspirin 81 MG tablet,chewable 81 mg PO DAILY@0800 estradiol 42.5 GM cream 1 ea VAGINAL WE Patient Comments: INSERT 0.1 APPLICATIONS VAGINALLY ONCE A WEEK cholecalciferol (vitamin D3) 50 mcg (2,000 unit) capsule 50 mcg PO QDAY levothyroxine 50 mcg tablet 50 mcg PO DAILY nitroglycerin 0.4 mg tablet, sublingual 0.4 mg sublingual Q5M PRN (Reason: chest pain) Qty: 25 1RF Discontinued lisinopril 10 mg tablet See Rx Instructions .ROUTE .COMPLEX Qty: 135 3RF Dose Instruction: take 1 AND 1/2 tablets by mouth once daily Rx Instructions: take 1 AND 1/2 tablets by mouth once daily simvastatin 10 mg tablet 10 mg PO DAILY Qty: 90 3RF Referrals / Follow Up: Adela Harley MD [Primary Care Provider] - Khanh Hernandez MD [Med Staff - Active Staff] - Within 1 Month Disposition Disposition (needs filled in before D/C Order can be placed): Home, Self Care 12/14/24 0950 Ramón Lazarus ZIMMERMAN CC: Dr. Adela Harley MD; Dr. Mary Anne Tijerina DO; Dr. Khanh Hernandez MD Signed Normal [facility] Erythrocyte distribution wid th ratioOrdered By: Sukumar Saldaña on 12-14-2024 Erythrocyte distribution width (RBC) [Ratio] 12.9 % 11.6-14.6 [facility] Erythrocyte distribution wid th standard deviationOrdered By: Sukumar Sladaña on 12-14-2024 Erythrocyte distribution width (RBC) [Ratio] 40.0 fl 35.1-43.9 [facility] Glomerular filtration rate ( GFR) estimation/1.73 sq m using serum, plasma, or whole bOrdered By: Sukumar Saldaña on 12-14-2024 GFR/1.73 sq M.predicted among non-blacks MDRD (S/P/Bld) [Vol rate/Area] 95 mL/min/{1.73_m2} >60 [facility] Comment on above: mL/min/1.73m2 CKD-EP I Creatinine Equation (2020) Hematocrit Auto (Bld) [Volum e fraction]Ordered By: Sukumar Saldaña on 12-14-2024 Hematocrit (Bld) [Volume fraction] 33.4 % Low 37-47 [facility] Hemoglobin measurementOrdere d By: Sukumar Saldaña on 12-14-2024 Hemoglobin (Bld) [Mass/Vol] 11.5 g/dL Low 12.0-15.0 [facility] - Chemistry and C hemistry - challengeOrdered By: Sukumar Saldaña on 12-14-2024 AST [Catalytic activity/Vol] 44 U/L High <32 [facility] MCV (mean corpuscular volume ) determinationOrdered By: Sukumar Saldaña on 12-14-2024 MCV (RBC) [Entitic vol] 84.6 fL 81-99 [facility] Mean corpuscular hemoglobin (MCH) determinationOrdered By: Sukumar Saldaña on 12-14-2024 MCH (RBC) [Entitic mass] 29.1 pg 27.0-32.0 [facility] Mean corpuscular hemoglobin concentration (MCHC) determinationOrdered By: Sukumar Saldaña on 12-14-2024 MCHC (RBC) [Mass/Vol] 34.4 g/dL 32-36 [facility] Mean platelet volume determi nationOrdered By: Sukumar Saldaña on 12-14-2024 Platelet mean volume (Bld) [Entitic vol] 9.8 fL 6.2-12.0 [facility] Platelet countOrdered By: Vic Saldaña on 12-14-2024 Platelets (Bld) [#/Vol] 269 10*3/uL 150-450 [facility] Potassium measurement (mass/ volume)Ordered By: Sukumar Saldaña on 12-14-2024 Potassium (Unsp spec) [Mass/Vol] 3.9 mmol/L 3.3-5.1 [facility] RBC Auto (Bld) [#/Vol]Ordere d By: Sukumar Saldaña on 12-14-2024 RBC (Bld) [#/Vol] 3.95 10*6/uL Low 4.2-5.4 [facility] Serum creatinine measurement (mass/volume)Ordered By: Suukmar Saldaña on 12-14-2024 Creatinine [Mass/Vol] 0.55 mg/dL Low 0.70-1.20 [facility] Serum globulin measurementOr dered By: Sukumar Saldaña on 12-14-2024 Globulin (S) [Mass/Vol] 2.7 g/dL 2.2-4.2 [facility] Serum glucose measurement (m ass/volume)Ordered By: Sukumar Saldaña on 12-14-2024 Glucose [Mass/Vol] 85 mg/dL 70-99 [facility] Serum or plasma alanine suero otransferase (ALT) measurementOrdered By: Sukumar Saldaña on 12-14-2024 ALT [Catalytic activity/Vol] 12 U/L <35 [facility] Serum or plasma albumin lorie urement (mass/volume)Ordered By: Sukumar Saldaña on 12-14-2024 Albumin [Mass/Vol] 4.0 g/dL 3.4-4.8 [facility] Serum or plasma albumin/glob ulin mass ratioOrdered By: Sukumar Saldaña on 12-14-2024 Albumin/Globulin [Mass ratio] 1.5 {ratio} 0.9-2.4 [facility] Serum or plasma alkaline rowan sphatase measurementOrdered By: Sukumar Saldaña on 12-14-2024 ALP [Catalytic activity/Vol] 54 U/L 35-104 [facility] Serum or plasma calcium lorie urement (mass/volume)Ordered By: Sukumar Saldaña on 12-14-2024 Calcium [Mass/Vol] 8.7 mg/dL 7.6-11.0 [facility] Serum or plasma urea nitroge n measurement (mass/volume)Ordered By: Sukumar Saldaña on 12-14-2024 Urea nitrogen [Mass/Vol] 9 mg/dL 4-19 [facility] Sodium levelOrdered By: Sabino Saldaña on 12-14-2024 Sodium [Moles/Vol] 130 mmol/L Low 133-145 [facility] Total proteinOrdered By: David Saldaña on 12-14-2024 Protein [Mass/Vol] 6.6 g/dL 5.9-8.4 [facility] White blood cell (WBC) count Ordered By: Sukumar Saldaña on 12-14-2024 WBC (Bld) [#/Vol] 12.4 10*3/uL High 4.4-11.0 [facility] ACT Activated Clotting Timeo n 12-13-2024 ACTk CLOT TIME 291 sec High 74-137 [facility] Comment on above: Performed By: #### L 9100.0100 #### [facility] [address] [place] [address]. [place], [address] ACTk CLOT TIME 285 sec High 74-137 [facility] Comment on above: Performed By: #### L 9100.0100 #### [facility] [address] [place], [address] Absolute lymphocyte countOrd ered By: Khanh Hernandez on 12-13-2024 Lymphocytes Auto (Unsp spec) [#/Vol] 1.62 10*3/uL 0.83-4.51 [facility] Absolute neutrophil countOrd ered By: Khanh Hernandez on 12-13-2024 Neutrophils (Bld) [#/Vol] 8.3 10*3/uL High 2.0-7.7 [facility] Anion gap in Serum or Plasma Ordered By: Khanh Hernandez on 12-13-2024 Anion gap [Moles/Vol] 13 mmol/L 5-15 [facility] Automated lymphocyte count a s percentage of total leukocytesOrdered By: Khanh Hernandez on 12-13-2024 Lymphocytes/100 WBC Auto (Unsp spec) 14.0 % Low 19-41 [facility] BUN/creatinine ratioOrdered By: Khanh Hernandez on 12-13-2024 Urea nitrogen/Creatinine [Mass ratio] 25.1 mg/mg High 10-20 [facility] Basic Metabolic Profile (BMP )on 12-13-2024 BUN/CRE 25.1 RATIO High 10-20 [facility] Comment on above: Performed By: #### L 500.4100, L100.0100, L501.9520, L501.4700, L500.4050 #### [facility] [address] [place], [address] Calcium [Mass/Vol] 8.9 mg/dL Normal 7.6-11.0 [facility] Comment on above: Performed By: #### L 500.4100, L100.0100, L501.9520, L501.4700, L500.4050 #### [facility] [address] [place], [address] Chloride [Moles/Vol] 97 mmol/L Low 98-108 [facility] Comment on above: Performed By: #### L 500.4100, L100.0100, L501.9520, L501.4700, L500.4050 #### [facility] [address] [place], [address] CO2 [Moles/Vol] 19.2 mmol/L Low 21.0-32.0 [facility] Comment on above: Performed By: #### L 500.4100, L100.0100, L501.9520, L501.4700, L500.4050 #### [facility] [address] [place], [address] Creatinine [Mass/Vol] 0.61 mg/dL Low 0.70-1.20 [facility] Comment on above: Performed By: #### L 500.4100, L100.0100, L501.9520, L501.4700, L500.4050 #### [facility] [address] [place], [address] ECRCL 39.14 ml/min Low 50-250 [facility] Comment on above: Performed By: #### L 500.4100, L100.0100, L501.9520, L501.4700, L500.4050 #### [facility] [address] [place], [address] GAP 13 Normal 5-15 [facility] Comment on above: Performed By: #### L 500.4100, L100.0100, L501.9520, L501.4700, L500.4050 #### [facility] [address] [place], [address] GFR/1.73 sq M.predicted among non-blacks MDRD (S/P/Bld) [Vol rate/Area] 92 mL/min/{1.73_m2} Normal >60 [facility] Comment on above: Result Comment: mL/m in/1.73m2 CKD-EPI Creatinine Equation (2020) Performed By: #### L 500.4100, L100.0100, L501.9520, L501.4700, L500.4050 #### [facility] [address] [place], [address] Glucose [Mass/Vol] 83 mg/dL Normal 70-99 [facility] Comment on above: Performed By: #### L 500.4100, L100.0100, L501.9520, L501.4700, L500.4050 #### [facility] [address] [place], [address] Potassium [Moles/Vol] 3.9 mmol/L Normal 3.3-5.1 [facility] Comment on above: Performed By: #### L 500.4100, L100.0100, L501.9520, L501.4700, L500.4050 #### [facility] [address] [place], [address] Sodium [Moles/Vol] 129 mmol/L Low 133-145 [facility] Comment on above: Performed By: #### L 500.4100, L100.0100, L501.9520, L501.4700, L500.4050 #### [facility] [address] [place], [address] Urea nitrogen [Mass/Vol] 15 mg/dL Normal 4-19 [facility] Comment on above: Performed By: #### L 500.4100, L100.0100, L501.9520, L501.4700, L500.4050 #### [facility] [address] [place], [address] Basophil percentageOrdered B y: Khanh Hernandez on 12-13-2024 Basophils/100 WBC (Bld) 0.4 % 0-1 [facility] CBC W/Diff, Automatedon 12-02 Absolute Lymph 1.62 X10 3/uL Normal 0.83-4.51 [facility] Comment on above: Performed By: #### L 500.4100, L100.0100, L501.9520, L501.4700, L500.4050 #### [facility] [address] [place], [address] Absolute Neut 8.3 X10 3/uL High 2.0-7.7 [facility] Comment on above: Performed By: #### L 500.4100, L100.0100, L501.9520, L501.4700, L500.4050 #### [facility] [address] [place], [address] Basophils/100 WBC (Bld) 0.4 % Normal 0-1 [facility] Comment on above: Performed By: #### L 500.4100, L100.0100, L501.9520, L501.4700, L500.4050 #### [facility] [address] [place], [address] Eosinophils/100 WBC (Bld) 0.5 % Normal 0-5 [facility] Comment on above: Performed By: #### L 500.4100, L100.0100, L501.9520, L501.4700, L500.4050 #### [facility] [address] [place], [address] Erythrocyte distribution width (RBC) [Ratio] 13.0 % Normal 11.6-14.6 [facility] Comment on above: Performed By: #### L 500.4100, L100.0100, L501.9520, L501.4700, L500.4050 #### [facility] [address] [place], [address] Hematocrit (Bld) [Volume fraction] 32.8 % Low 37-47 [facility] Comment on above: Performed By: #### L 500.4100, L100.0100, L501.9520, L501.4700, L500.4050 #### [facility] [address] [place], [address] Hemoglobin (Bld) [Mass/Vol] 11.2 g/dL Low 12.0-15.0 [facility] Comment on above: Performed By: #### L 500.4100, L100.0100, L501.9520, L501.4700, L500.4050 #### [facility] [address] [place], [address] IG% 0.300 Normal 0.0-0.9 [facility] Comment on above: Result Comment: IG% - Immature Granulocytes (promyelocytes, myelocytes and metamyelocytes) > 1% indicates that a LEFT SHIFT is Present. Performed By: #### L 500.4100, L100.0100, L501.9520, L501.4700, L500.4050 #### [facility] [address] [place], [address] Lymphocytes/100 WBC (Bld) 14.0 % Low 19-41 [facility] Comment on above: Performed By: #### L 500.4100, L100.0100, L501.9520, L501.4700, L500.4050 #### [facility] [address] [place], [address] MCH (RBC) [Entitic mass] 28.9 pg Normal 27.0-32.0 [facility] Comment on above: Performed By: #### L 500.4100, L100.0100, L501.9520, L501.4700, L500.4050 #### [facility] [address] [place], [address] MCHC (RBC) [Mass/Vol] 34.1 g/dL Normal 32-36 [facility] Comment on above: Performed By: #### L 500.4100, L100.0100, L501.9520, L501.4700, L500.4050 #### [facility] [address] [place], [address] MCV (RBC) [Entitic vol] 84.5 fL Normal 81-99 [facility] Comment on above: Performed By: #### L 500.4100, L100.0100, L501.9520, L501.4700, L500.4050 #### [facility] [address] [place], [address] Monocytes/100 WBC (Bld) 12.6 % High 0-10 [facility] Comment on above: Performed By: #### L 500.4100, L100.0100, L501.9520, L501.4700, L500.4050 #### [facility] [address] [place], [address] Neutrophils/100 WBC (Bld) 72.2 % High 47-70 [facility] Comment on above: Performed By: #### L 500.4100, L100.0100, L501.9520, L501.4700, L500.4050 #### [facility] [address] [place], [address] Nucleated RBC (Bld) [#/Vol] 0 10*3/uL Normal 0-5 [facility] Comment on above: Performed By: #### L 500.4100, L100.0100, L501.9520, L501.4700, L500.4050 #### [facility] [address] [place], [address] Platelet mean volume (Bld) [Entitic vol] 9.9 fL Normal 6.2-12.0 [facility] Comment on above: Performed By: #### L 500.4100, L100.0100, L501.9520, L501.4700, L500.4050 #### [facility] [address] [place], [address] Platelets (Bld) [#/Vol] 269 10*3/uL Normal 150-450 [facility] Comment on above: Performed By: #### L 500.4100, L100.0100, L501.9520, L501.4700, L500.4050 #### [facility] [address] [place], [address] RBC (Bld) [#/Vol] 3.88 10*6/uL Low 4.2-5.4 [facility] Comment on above: Performed By: #### L 500.4100, L100.0100, L501.9520, L501.4700, L500.4050 #### [facility] [address] [place], [address] RDW SD 39.3 fl Normal 35.1-43.9 [facility] Comment on above: Performed By: #### L 500.4100, L100.0100, L501.9520, L501.4700, L500.4050 #### [facility] [address] [place], [address] WBC (Bld) [#/Vol] 11.6 10*3/uL High 4.4-11.0 [facility] Comment on above: Performed By: #### L 500.4100, L100.0100, L501.9520, L501.4700, L500.4050 #### [facility] [address] [place], [address] Carbon dioxide, total [Moles /volume] in Central venous bloodOrdered By: Khanh Hernandez on 12-13-2024 CO2 [Moles/Vol] 19.2 mmol/L Low 21.0-32.0 [facility] Cardiac rehabilitation repor tOrdered By: Aicha Chou on 12-13-2024 Study report [facility] Cardiac Rehab [address] [place] [address] CR: Phase I Assessment MR#: [id number] Acct: [id number] Name: BEN ARROYO Rep #:[id number] : 1945 79 From: Aicha Chou PCP: Dr. Adela Harley MD DOS: 12/12 Patient Communication Patient Information Former Patient:: Phase I and Phase II PHII Cardiac Rehab Discussed with Patient:: Yes Guide to Cardiac Rehab Given to Patient:: Yes Cardiac Rehab Facility Choice List Given to Patient:: Yes Communication to Cardiac Rehab Choice Program [facility] CR PHII:: Communication Given to CR [employer] Officer:: Sukumar Saldaña Phase II Cardiac Rehab:: Yes Sessions:: 36 sessions - 3 days/wk, 12 weeks Cardiac Rehabilitation Info Program Information Cardiac Rehabilitation Program Information: Cardiac Rehab The cardiac rehab team at [facility] consists of highly skilled exercise physiologists, nurses, respiratory therapists and physicians working together with you. Our purpose is to help you have a full recovery and achieve the goals you set for yourself. Over the years many of our patients have returned to activities they assumed they would never do again! We can help restore your confidence and motivation to make lifestyle changes that can have a significant impact on your health and quality of life! We can help answer questions and concerns you may have about exercise, lifestyle, medications, diet, stress and anxiety which are common following a hospitalization. WE monitor ECG and vital signs during exercise and discuss your progress with you and report toyour physician(s). Cardiac Rehab is proven to help reduce readmissions, improve functional capacityand lower recurrence of problems with your heart. Our Cardiac Rehab program is Certified by the [place] [employer]monary [employer] (AACVPR) and Accredited by the [place] [employer] through our [facility]. You can contact us at . We invite you to call us with your questions or to get started in our program. If you have other questions or concerns be sure to ask your physician/provider during your follow-up visit. WE look forward to seeing you! 12/13/24 1331 Date Aicha Chou Outcome assessment reviewed. Exercise plan approved as documented. Treatment plan and goals support patient needs/abilities. Continue with current plan. I certify the patient demonstrates improvement and remains willing and capable of participation. the patient continues to benefit from cardiac rehab services/training. The patient may continue at current intensity, endurance andmodality and progress per protocol. Cosigner Signature: Date CC: ~ Signed [facility] Chloride assayOrdered By: Gale Hernandez on 12-13-2024 Chloride [Moles/Vol] 97 mmol/L Low 98-108 [facility] Electrocardiogram reportOrde red By: Khanh Hernandez on 12-13-2024 EKG study [facility] Cardiovascular Services [address] [place] [address] 12 Lead EKG 12/11/24 1843 MR#: [id number] Acct: [id number] Name: BEN ARROYO Rep #:[id number] : 1945 79 From: hKanh metzger MD Attending Dr: Dr. Ramón Qiu DO Status: ADM MAUREEN Ordering Dr: Sadi De Los Santos DO Date: 0 12/11/24 Location: ICU Sex: F C Admitted: 12/12/24 Test Reason : Blood Pressure : */* mmHG Vent. Rate : 71 BPM Atrial Rate : 71 BPM P-R Int : 142 ms QRS Dur : 66 ms QT Int : 380 ms P-R-T Axes : 55 -25 66 degrees QTcB Int : 412 ms Sinus rhythm with Premature supraventricular complexes Minimal voltage criteria for LVH, may be normal variant ( R in aVL ) Septal infarct , age undetermined Abnormal ECG Confirmed by Khanh Hernandez ([id number]), assignment desk editor REILLY HIGGINS ([id number]) on 56:07:11 AM Referred By: Confirmed By: Khanh Hernandez 12/13/24 06 Date _ Khanh Hernandez MD CC: Dr. Sadi De Los Santos, ; Dr. Adela Harley MD; Dr. Ramón Qiu, DO ~ Signed [facility] Work Phone: Eosinophil percentageOrdered By: Khanh Hernandez on 12-13-2024 Eosinophils/100 WBC (Bld) 0.5 % 0-5 [facility] Erythrocyte distribution wid th ratioOrdered By: Khanh Hernandez on 12-13-2024 Erythrocyte distribution width (RBC) [Ratio] 13.0 % 11.6-14.6 [facility] Erythrocyte distribution wid th standard deviationOrdered By: Khanh Hernandez on 12-13-2024 Erythrocyte distribution width (RBC) [Ratio] 39.3 fl 35.1-43.9 [facility] Glomerular filtration rate ( GFR) estimation/1.73 sq m using serum, plasma, or whole bOrdered By: Khanh Hernandez on 12-13-2024 GFR/1.73 sq M.predicted among non-blacks MDRD (S/P/Bld) [Vol rate/Area] 92 mL/min/{1.73_m2} >60 [facility] Comment on above: mL/min/1.73m2 CKD-EP I Creatinine Equation (2020) Hematocrit Auto (Bld) [Volum e fraction]Ordered By: Khanh Hernandez on 12-13-2024 Hematocrit (Bld) [Volume fraction] 32.8 % Low 37-47 [facility] Hemoglobin measurementOrdere d By: Khanh Hernandez on 12-13-2024 Hemoglobin (Bld) [Mass/Vol] 11.2 g/dL Low 12.0-15.0 [facility] Immature granulocytes/100 WB C Auto (Bld)Ordered By: Khanh Hernandez on 12-13-2024 Immature granulocytes/100 WBC (Bld) 0.300 % 0.0-0.9 [facility] Comment on above: IG% - Immature Granu locytes (promyelocytes, myelocytes and metamyelocytes) > 1% indicates that a LEFT SHIFT is Present. International normalized rat io (INR) calculationOrdered By: Khanh Hernandez on 12-13-2024 INR Coag (Bld) [Relative time] 1.0 {INR} [facility] MCV (mean corpuscular volume ) determinationOrdered By: Khanh Hernandez on 12-13-2024 MCV (RBC) [Entitic vol] 84.5 fL 81-99 [facility] Mean corpuscular hemoglobin (MCH) determinationOrdered By: Khanh Hernandez on 12-13-2024 MCH (RBC) [Entitic mass] 28.9 pg 27.0-32.0 [facility] Mean corpuscular hemoglobin concentration (MCHC) determinationOrdered By: Khanh Hernandez on 12-13-2024 MCHC (RBC) [Mass/Vol] 34.1 g/dL 32-36 [facility] Mean platelet volume determi nationOrdered By: Khanh Hernandez on 12-13-2024 Platelet mean volume (Bld) [Entitic vol] 9.9 fL 6.2-12.0 [facility] Monocyte percentageOrdered B y: Khanh Hernandez on 12-13-2024 Monocytes/100 WBC (Bld) 12.6 % High 0-10 [facility] Neutrophil percentageOrdered By: Khanh Hernandez on 12-13-2024 Neutrophils/100 WBC (Bld) 72.2 % High 47-70 [facility] Nucleated red blood cell per centageOrdered By: Khanh Hernandez on 12-13-2024 Nucleated RBC/100 WBC (Bld) [Ratio] 0 % 0-5 [facility] Platelet countOrdered By: Gale Hernandez on 12-13-2024 Platelets (Bld) [#/Vol] 269 10*3/uL 150-450 [facility] Potassium measurement (mass/ volume)Ordered By: Khanh Hernandez on 12-13-2024 Potassium (Unsp spec) [Mass/Vol] 3.9 mmol/L 3.3-5.1 [facility] Prothrombin Time w/INRon INR Coag (PPP) [Relative time] 1.0 {INR} Normal [facility] Comment on above: Performed By: #### L 500.4100, L100.0100, L501.9520, L501.4700, L500.4050 #### [facility] [address] [place], [place], [id number] PT Coag (PPP) [Time] 13.3 s Normal 11.7-14.9 [facility] Comment on above: Performed By: #### L 500.4100, L100.0100, L501.9520, L501.4700, L500.4050 #### [facility] [address] [place], [address] Prothrombin timeOrdered By: Khanh Hernandez on 12-13-2024 PT Coag (PPP) [Time] 13.3 s 11.7-14.9 [facility] RBC Auto (Bld) [#/Vol]Ordere d By: Khanh Hernandez on 12-13-2024 RBC (Bld) [#/Vol] 3.88 10*6/uL Low 4.2-5.4 [facility] Serum creatinine measurement (mass/volume)Ordered By: Khanh Hernandez on 12-13-2024 Creatinine [Mass/Vol] 0.61 mg/dL Low 0.70-1.20 [facility] Serum glucose measurement (m ass/volume)Ordered By: Khanh Hernandez on 12-13-2024 Glucose [Mass/Vol] 83 mg/dL 70-99 [facility] Serum or plasma calcium lorie urement (mass/volume)Ordered By: Khanh Hernandez on 12-13-2024 Calcium [Mass/Vol] 8.9 mg/dL 7.6-11.0 [facility] Serum or plasma urea nitroge n measurement (mass/volume)Ordered By: Khanh Hernandez on 12-13-2024 Urea nitrogen [Mass/Vol] 15 mg/dL 4-19 [facility] Sodium levelOrdered By: Billy Hernandez on 12-13-2024 Sodium [Moles/Vol] 129 mmol/L Low 133-145 [facility] White blood cell (WBC) count Ordered By: Khanh Hernandez on 12-13-2024 WBC (Bld) [#/Vol] 11.6 10*3/uL High 4.4-11.0 [facility] 12 Lead EKGon 12-12-2024 12 Lead EKG [facility] Cardiovascular Services [address] [place] [address] 12 Lead EKG 12/12/24 0235 MR#: [id number] Acct: [id number] Name: BEN ARROYO Rep #: [id number] : 1945 79 From: Khanh Hernandez MD Attending Dr: Dr. Ramón Qiu DO Status: A DM MAUREEN Ordering Dr: Mary Anne Tijerina DO Date: 12/12/24 Location: ICU Sex: F C Admitted: 12/12/24 Test Reason : TIMED Blood Pressure : */* mmHG Vent. Rate : 60 BPM Atrial Rate : 60 BPM P-R Int : 150 ms QRS Dur : 70 ms QT Int : 414 ms P-R-T Axes : 56 -31 62 degrees QTcB Int : 414 ms Normal sinus rhythm Left axis deviation Minimal voltage criteria for LVH, may be normal variant ( R in aVL ) Septal infarct , age undetermined Abnormal ECG When compared with ECG of 11-Dec-2024 18:43, MANUAL COMPARISON REQUIRED DATA IS UNCONFIRMED Confirmed by Khanh Hernandez ([id number]), assignment desk editor LORRAINE WAYNE ([id number]) on 12/12/2024 10:42:06 AM Referred By: Confirmed By: Khanh Hernandez 12/12/24 1042 Date Khanh Hernandez MD CC: Dr. Adela Harley MD; Dr. Mary Anne Tijerina DO; Dr. Ramón Qiu DO Signed Normal [facility] Activated partial thrombopla stin time (aPTT) in platelet poor plasma by coagulation aOrdered By: Mary Anne Tijerina on 12-12-2024 aPTT Coag (PPP) [Time] 33.7 s 24.1-36.2 [facility] Bilirubin, totalOrdered By: Mary Anne Tijerina on 12-12-2024 Bilirubin [Mass/Vol] 0.83 mg/dL 0.00-1.30 [facility] CBC W/Diff, Automatedon 12-02 Absolute Lymph 1.62 X10 3/uL Normal 0.83-4.51 [facility] Comment on above: Performed By: #### L 500.4100, L100.0100, L501.9520, L501.4700, L500.4050 #### [facility] [address] [place], [address] Absolute Neut 7.1 X10 3/uL Normal 2.0-7.7 [facility] Comment on above: Performed By: #### L 500.4100, L100.0100, L501.9520, L501.4700, L500.4050 #### [facility] [address] [place], [address] Basophils/100 WBC (Bld) 0.6 % Normal 0-1 [facility] Comment on above: Performed By: #### L 500.4100, L100.0100, L501.9520, L501.4700, L500.4050 #### [facility] [address] [place], [address] Eosinophils/100 WBC (Bld) 0.3 % Normal 0-5 [facility] Comment on above: Performed By: #### L 500.4100, L100.0100, L501.9520, L501.4700, L500.4050 #### [facility] [address] [place], [address] Erythrocyte distribution width (RBC) [Ratio] 12.6 % Normal 11.6-14.6 [facility] Comment on above: Performed By: #### L 500.4100, L100.0100, L501.9520, L501.4700, L500.4050 #### [facility] [address] [place], [address] Hematocrit (Bld) [Volume fraction] 38.5 % Normal 37-47 [facility] Comment on above: Performed By: #### L 500.4100, L100.0100, L501.9520, L501.4700, L500.4050 #### [facility] [address] [place], [address] Hemoglobin (Bld) [Mass/Vol] 13.2 g/dL Normal 12.0-15.0 [facility] Comment on above: Performed By: #### L 500.4100, L100.0100, L501.9520, L501.4700, L500.4050 #### [facility] [address] [place], [address] IG% 0.500 Normal 0.0-0.9 [facility] Comment on above: Result Comment: IG% - Immature Granulocytes (promyelocytes, myelocytes and metamyelocytes) > 1% indicates that a LEFT SHIFT is Present. Performed By: #### L 500.4100, L100.0100, L501.9520, L501.4700, L500.4050 #### [facility] [address] [place], [address] Lymphocytes/100 WBC (Bld) 16.4 % Low 19-41 [facility] Comment on above: Performed By: #### L 500.4100, L100.0100, L501.9520, L501.4700, L500.4050 #### [facility] [address] [place], [address] MCH (RBC) [Entitic mass] 28.6 pg Normal 27.0-32.0 [facility] Comment on above: Performed By: #### L 500.4100, L100.0100, L501.9520, L501.4700, L500.4050 #### [facility] [address] [place], [address] MCHC (RBC) [Mass/Vol] 34.3 g/dL Normal 32-36 [facility] Comment on above: Performed By: #### L 500.4100, L100.0100, L501.9520, L501.4700, L500.4050 #### [facility] [address] [place], [address] MCV (RBC) [Entitic vol] 83.3 fL Normal 81-99 [facility] Comment on above: Performed By: #### L 500.4100, L100.0100, L501.9520, L501.4700, L500.4050 #### [facility] [address] [place], [address] Monocytes/100 WBC (Bld) 10.2 % High 0-10 [facility] Comment on above: Performed By: #### L 500.4100, L100.0100, L501.9520, L501.4700, L500.4050 #### [facility] [address] [place], [address] Neutrophils/100 WBC (Bld) 72.0 % High 47-70 [facility] Comment on above: Performed By: #### L 500.4100, L100.0100, L501.9520, L501.4700, L500.4050 #### [facility] [address] [place], [address] Nucleated RBC (Bld) [#/Vol] 0 10*3/uL Normal 0-5 [facility] Comment on above: Performed By: #### L 500.4100, L100.0100, L501.9520, L501.4700, L500.4050 #### [facility] [address] [place], [address] Platelet mean volume (Bld) [Entitic vol] 9.7 fL Normal 6.2-12.0 [facility] Comment on above: Performed By: #### L 500.4100, L100.0100, L501.9520, L501.4700, L500.4050 #### [facility] [address] [place], [address] Platelets (Bld) [#/Vol] 302 10*3/uL Normal 150-450 [facility] Comment on above: Performed By: #### L 500.4100, L100.0100, L501.9520, L501.4700, L500.4050 #### [facility] [address] [place], [address] RBC (Bld) [#/Vol] 4.62 10*6/uL Normal 4.2-5.4 [facility] Comment on above: Performed By: #### L 500.4100, L100.0100, L501.9520, L501.4700, L500.4050 #### [facility] [address] [place], [address] RDW SD 38.2 fl Normal 35.1-43.9 [facility] Comment on above: Performed By: #### L 500.4100, L100.0100, L501.9520, L501.4700, L500.4050 #### [facility] [address] [place], [address] WBC (Bld) [#/Vol] 9.9 10*3/uL Normal 4.4-11.0 [facility] Comment on above: Performed By: #### L 500.4100, L100.0100, L501.9520, L501.4700, L500.4050 #### [facility] [address] [place], [address] Calculated very low density lipoprotein (VLDL) cholesterol measurementOrdered By: Mary Anne Tijerina on 12-12-2024 Calculated very low density lipoprotein (VLDL) cholesterol measurement 16 mg/dL 5-40 [facility] Cardiovascular stress test r eportOrdered By: Sukumar Saldaña on 12-12-2024 Study report [facility] [address] [place] [address] MR#: [id number] Acct: [id number] Name: BEN ARROYO Rep #: [id number] : 1945 79 From: Sukumar Saldaña MD Primary Care: Dr. Adela Harley MD Statu s: ADM MAUREEN Referring Dr: Sex: F C Stress Test Report Date: 12/12/2024 Procedure: Pharmacologic stress nuclear imaging study Indications: Chest pain Consent: Per the patient Procedure: The patient underwent pharmacologic (Regadenoson 0.4mg ) evaluation with a peak heart rate of 112 beats per minute (78%predicted maximal heart rate) and a peak blood pressure of 132/70 mmHg. The baseline ECG demonstrated sinus rhythm. The peak pharmacologic ECG did not show any ischemic changes however 10 minutes into recovery, patient had downsloping inferior ST depressions with chest pain. There were no cardiac dysrhythmias pretest, during pharmacologic infusion, or recovery. Patient had chest discomfort during pharmacologic infusion and in recovery. The patient was injected with 11.0 millicuries of technetium 99m Cardiolite and subsequently rest SPECT Cardiolite nuclear imaging was obtained in the horizontal long, vertical long, and short axis views. The patient underwent pharmacologic (Regadenoson) evaluation. The patient was injected with 34.7 millicuries of technetium 99m Cardiolite and subsequently stress SPECT Cardiolite nuclear imaging was obtained in the horizontal long, vertical long, and short axis views. A gated Cardiolite study at peak stress was obtained. The examination was stopped secondary to completion of protocol. Rest and stress SPECT Cardiolite nuclear imaging status post realignment, normalization, and attenuation correction demonstrate moderate size reversible perfusion defect of the anterior wall suggestive of moderate ischemia. There isend systolic thickening and brightening. The gated Cardiolite study demonstrates myocardial thickening and inward wall motion. The reported LVEF is83%. Impression: 1. Pharmacologic (Regadenoson) evaluation 2. Peak pharmacologic ECG with no ischemic changes however patient had inferiorST depressions with chest pain 10 minutes into recovery, suggestive of ischemia. 3. There were no cardiac dysrhythmias pretest, during pharmacologic infusion, or recovery. 5. Moderate size reversible perfusion defect of the anterior wall suggestive ofmoderate ischemia. 6. The gated Cardiolite study reports an LVEF of 83%. This note was generated with [employer] software. It may contain incorrectwords, spelling, and punctuation that were not noted in checking the note beforesigning. 12/12/24 1232 Date _ Sukumar Piotr MD CC: Dr. Sadi De Los Santos, DO; Dr. Adela Harley MD; Dr. Mary Anne Tijerina DO; Dr. Singer DO; Dr. Khanh Hernandez MD ~ Date Dictated: 12/12/240 Date Transcribed: 12/12/241229 [employer] Principal: VIC L[employer] [facility] Work Phone: Comprehensive Metabolic Prof ilon 12-12-2024 Albumin [Mass/Vol] 4.6 g/dL Normal 3.4-4.8 [facility] Comment on above: Performed By: #### L 500.4100, L100.0100, L501.9520, L501.4700, L500.4050 #### [facility] [address] [place], [address] Albumin/Globulin [Mass ratio] 1.4 {ratio} Normal 0.9-2.4 [facility] Comment on above: Performed By: #### L 500.4100, L100.0100, L501.9520, L501.4700, L500.4050 #### [facility] [address] [place], [address] ALK PHOS 63 U/L Normal 35-104 [facility] Comment on above: Performed By: #### L 500.4100, L100.0100, L501.9520, L501.4700, L500.4050 #### [facility] [address] [place], [address] ALT [Catalytic activity/Vol] 13 U/L Normal <=34 [facility] Comment on above: Performed By: #### L 500.4100, L100.0100, L501.9520, L501.4700, L500.4050 #### [facility] [address] [place], [address] AST [Catalytic activity/Vol] 31 U/L Normal <=31 [facility] Comment on above: Performed By: #### L 500.4100, L100.0100, L501.9520, L501.4700, L500.4050 #### [facility] [address] [place], [address] Bilirubin [Mass/Vol] 0.83 mg/dL Normal 0.00-1.30 [facility] Comment on above: Performed By: #### L 500.4100, L100.0100, L501.9520, L501.4700, L500.4050 #### [facility] [address] [place], [address] BUN/CRE 19.3 RATIO Normal 10-20 [facility] Comment on above: Performed By: #### L 500.4100, L100.0100, L501.9520, L501.4700, L500.4050 #### [facility] [address] [place], [address] Calcium [Mass/Vol] 9.8 mg/dL Normal 7.6-11.0 [facility] Comment on above: Performed By: #### L 500.4100, L100.0100, L501.9520, L501.4700, L500.4050 #### [facility] [address] [place], [address] Chloride [Moles/Vol] 93 mmol/L Low 98-108 [facility] Comment on above: Performed By: #### L 500.4100, L100.0100, L501.9520, L501.4700, L500.4050 #### [facility] [address] [place], [address] CO2 [Moles/Vol] 24.0 mmol/L Normal 21.0-32.0 [facility] Comment on above: Performed By: #### L 500.4100, L100.0100, L501.9520, L501.4700, L500.4050 #### [facility] [address] [place], [address] Creatinine [Mass/Vol] 0.68 mg/dL Low 0.70-1.20 [facility] Comment on above: Performed By: #### L 500.4100, L100.0100, L501.9520, L501.4700, L500.4050 #### [facility] [address] [place], [address] ECRCL 39.14 ml/min Low 50-250 [facility] Comment on above: Performed By: #### L 500.4100, L100.0100, L501.9520, L501.4700, L500.4050 #### [facility] [address] [place], [address] GAP 13 Normal 5-15 [facility] Comment on above: Performed By: #### L 500.4100, L100.0100, L501.9520, L501.4700, L500.4050 #### [facility] [address] [place], [address] GFR/1.73 sq M.predicted among non-blacks MDRD (S/P/Bld) [Vol rate/Area] 90 mL/min/{1.73_m2} Normal >60 [facility] Comment on above: Result Comment: mL/m in/1.73m2 CKD-EPI Creatinine Equation (2020) Performed By: #### L 500.4100, L100.0100, L501.9520, L501.4700, L500.4050 #### [facility] [address] [place], [address] Globulin (S) [Mass/Vol] 3.4 g/dL Normal 2.2-4.2 [facility] Comment on above: Performed By: #### L 500.4100, L100.0100, L501.9520, L501.4700, L500.4050 #### [facility] [address] [place], [address] Glucose [Mass/Vol] 99 mg/dL Normal 70-99 [facility] Comment on above: Performed By: #### L 500.4100, L100.0100, L501.9520, L501.4700, L500.4050 #### [facility] [address] [place], [address] Potassium [Moles/Vol] 4.4 mmol/L Normal 3.3-5.1 [facility] Comment on above: Performed By: #### L 500.4100, L100.0100, L501.9520, L501.4700, L500.4050 #### [facility] [address] [place], [address] Sodium [Moles/Vol] 130 mmol/L Low 133-145 [facility] Comment on above: Performed By: #### L 500.4100, L100.0100, L501.9520, L501.4700, L500.4050 #### [facility] [address] [place], [address] T PROT 8.0 g/dL Normal 5.9-8.4 [facility] Comment on above: Performed By: #### L 500.4100, L100.0100, L501.9520, L501.4700, L500.4050 #### [facility] [address] [place], [address] Urea nitrogen [Mass/Vol] 13 mg/dL Normal 4-19 [facility] Comment on above: Performed By: #### L 500.4100, L100.0100, L501.9520, L501.4700, L500.4050 #### [facility] [address] [place], [address] Consultation - Cardiologyon 12-12-2024 Consultation - Cardiology [facility] Medical Records Department [address] [place] [address] Consultation - Cardiology 12/12/24 0846 MR#: [id number] Acct: [id number] Name: BEN ARROYO Rep #: [id number] : 1945 79 From: Khanh Hernandez MD PCP: Dr. Adela Harley MD Status:ADM MAUREEN Location: ICU [id number] Assessment Plan Assessment/Plan (1) Uncontrolled hypertension: PLAN: Patient's blood pressure is markedly elevated when she admitted to the emergency department at 198/90. It is come under better control with IV nitro she is only on lisinopril 10 mg daily in her home environment. Renal function is normal the patient is intolerant to beta-ajit therapy. She said it made her feel terrible. Would recommend avoiding diuretic therapy given her history of hyponatremia. Following the results of the stress test we will determine the best option for medical therapy for hypertension. (2) Chest pain: QUALIFIERS: Chest pain type: unspecified Qualified Code(s): R07.9 - Chest pain, unspecified PLAN: The chest symptoms sound potentially ischemic in nature. The patient has limited treatment options due to her previous interventions and risk of median sternotomy given her history of breast cancer. Would recommend we proceed with pharmacologic nuclear stress test. If the patient has significant ischemic burden then a left heart catheterization would be indicated. If there is a low level of ischemia I recommend a trial at medical therapy with long-acting nitrates and depending on her echo results potentially low-dose Coreg. If she has completely normal LV function or even LVH would trial amlodipine as an option. Would recommend continuing on lisinopril. (3) Atherosclerosis of coronary artery of [place] heart without angina pectoris: QUALIFIERS: Coronary Disease-Associated Artery/Lesion type: [place] artery Qualified Code(s): I25.10 - Atherosclerotic heart disease of [place] coronary artery without angina pectoris PLAN: Patient is status post 3 interventions in the past she had an initial stent to the LAD and then subsequently underwent AUGUSTINE graft to the LAD by minimally invasive thoracotomy. She subsequently underwent complex stenting of the right coronary artery with shockwave balloon therapy due to heavy calcification in 2020. She also had a moderate lesion in the OM branch of the circumflex which had a negative FFR and has been treated medically. Given her minimal enzyme changes troponin 18, 23, 25, would recommend that we proceed with pharmacologic nuclear stress test to define the amount of ischemic myocardium. Pending the outcome of that stress test further recommendations will be forthcoming. (4) Hyperlipidemia: QUALIFIERS: Hyperlipidemia type: pure hypercholesterolemia Qualified Code(s): E78.00 - Pure hypercholesterolemia, unspecified PLAN: Patient's lipids done on this admission total cholesterol was 169 triglycerides 81 LDL 74 HDL 79. The patient is currently on simvastatin 10 mg daily. Given her HDL of 79 the LDL of 74 appears to be acceptable in this 79-year-old. (5) Breast cancer: QUALIFIERS: Breast location: unspecified site of breast Estrogen receptor status: u nspecified Patient sex: female Laterality: bilateral Qualified Code(s): C50.911 - Malignant neoplasm of unspecified site of right female breast; C50.912 - Malignant neoplasm of unspecified site of left female breast PLAN: Patient status post remote bilateral mastectomies and bilateral breast implants. It is unknown whether she received radiation therapy. PLAN: Plan 1. Recommend pharmacologic nuclear stress test. 2. Discontinue IV heparin and IV nitroglycerin. 3. Will start Imdur 30 mg daily this morning. 4. Further recommendations pending the results of the pharmacologic nuclear stress test. HPI Consult Data Date of Consult: 12/12/24 HPI Narrative Reason for Consultation: Chest pain with known coronary artery disease HPI Narrative: BEN ARROYO, is a 79 F who presents with several days of chest discomfort that have been progressive the symptoms occur with exertion and resolved with activity. She is also noted increasing fatigue and the symptoms appear to be worse than what she has had in the past with her anginal symptoms. 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 Troponins were essentially negative at 18, 23, and 25. The patient does have a long history of coronary artery disease in 1998 she underwent minimally invasive AUGUSTINE to the LAD due to bilateral breast implants status postmastectomy for breast cancer. It is unknown whether the patient had radiation therapy to her mediastinum. The patient subsequently in 2020 had a catheterization done which showed a patent AUGUSTINE to the LAD and significant disease in the he (more content not included)... Normal [facility] Echo Completeon 12-12-2024 Echo Complete [facility] [place] [address] Echo Complete 12/12/24 1059 MR#: [id number] Acct: [id number] Name: BEN ARROYO Rep #: [id number] : 1945 79 From: Sukumar Saldaña MD Attending Dr: Dr. Ramón Qiu, DO Status: A DM MAUREEN Ordering Dr: Mary Anne Tijerina DO Date: 12/12/24 Location: ICU Sex: F C Admitted: 12/12/24 Reason For Study Reason For Study: CHF Procedure This was a 2D Doppler, Color Flow transthoracic echocardiogram. The study was technically difficult. Due to chest/sternum tenderness, bilateral breast implants, difficulty tolerating probe pressure. Exam performed portable in ICU/CCU. Left Ventricle Normal size and thickness. Posterior and inferior hypokinesis. Estimated LVEF 50%. Stage I diastolic dysfunction. Right Ventricle Normal right ventricle. Atria The left and right atria are normal. Aneurysmal atrial septum. Mitral Valve Trivial mitral valve insufficiency. Tricuspid Valve Normal tricuspid valve. Unable to estimate RV systolic pressure due to inadequate jet, pulmonary artery pressure probably normal. Aortic Valve The aortic valve is not well visualized in the short axis view. Moderately calcified aortic valve. Aortic valve sclerosis without stenosis. Mild to moderate aortic valve regurgitation. Pulmonic Valve The pulmonic valve is not well visualized. Great Vessels Normal sized aortic root. Pericardium/Pleural No pericardial effusion. MMode/2D Measurements Calculations LVIDd: 3.4 cm IVSd: 0.84 cm Ao root diam: 2.8 cm LVIDs: 2.4 cm LVPWd: 0.89 cm RVDd: 2.6 cm FS: 28.0 % LAV(MOD-bp): 32.4 ml LVAd ap4: 20.5 cm2 SV(MOD-sp4): 34.9 ml LAV(MOD-bp) Indexed: 24.5 ml/m2 LVLd ap4: 6.1 cm SI(MOD-sp4): 26.3 ml/m2 LAV(MOD-sp2): 28.3 ml EDV(MOD-sp4): 56.0 ml LAV(MOD-sp4): 28.2 ml EDV(sp4-el): 57.9 ml LVAs ap4: 11.9 cm2 LVLs ap4: 5.6 cm ESV(MOD-sp4): 21.0 ml ESV(sp4-el): 21.5 ml EF(MOD-sp4): 62.4 % EF(sp4-el): 63.0 % SV(sp4-el): 36.5 ml LA A4 area: 11.7 cm2 LA dimension(2D): 3.2 cm RA A4 area: 9.9 cm2 TAPSE: 1.3 cm Time Measurements MV dec time: 0.27 sec Doppler Measurements Calculations MV E max roosevelt: 78.3 cm/sec Lat Peak E' Roosevelt: 8.0 cm/sec Med Peak E' Roosevelt: 4.5 cm/sec MV A max roosevelt: 99.6 cm/sec E/E' lat: 9.8 E/E' med: 17.3 MV E/A: 0.79 MV V2 max: 108.7 cm/sec MV P1/2t max roosevelt: 80.8 cm/sec Ao V2 max: 150.6 cm/sec MV max P.7 mmHg MV P1/2t: 68.6 msec Ao max P.1 mmHg MV V2 mean: 52.2 cm/sec Ao V2 mean: 95.1 cm/sec MV mean P.4 mmHg MV dec slope: 345.0 cm/sec2 Ao mean P.2 mmHg MV V2 VTI: 23.7 cm MVA(P1/2t): 3.2 cm2 Ao V2 VTI: 28.9 cm AV (velocity ratio): 0.69 AI max roosevelt: 345.8 cm/sec LV V1 max: 82.6 cm/sec PA V2 max: 100.8 cm/sec AI max P.9 mmHg LV V1 max P.7 mmHg PA V2 mean: 70.1 cm/sec LV V1 mean P.9 mmHg AI dec slope: 196.8 cm/sec2 LV V1 mean: 66.9 cm/sec AI P1/2t: 514.7 msec LV V1 VTI: 19.9 cm ECHO/Echo Complete Interpretation Summary The study was technically difficult with suboptimal images. Posterior and inferior hypokinesis. Estimated LVEF 50%. Stage I diastolic dysfunction. Aneurysmal atrial septum. Moderately calcified aortic valve. Aortic valve sclerosis without stenosis. Mild to moderate aortic valve regurgitation. Ordering Physician: Mary Anne Tijerina Referring Physician: Adela Harley Performed By: Natalya Bonds, EDGARD, RVT 12/12/24 1407 Date Sukumar Saldaña MD CC: Dr. Adela Harley MD; Dr. Mary Anne Tijerina DO; Dr. Ramón Qiu DO Date Dictated: 12/12/24 105 Date Transcribed: 12/12/241406 Preschool Principal: Signed Normal [facility] Echocardiogram study reportO rdered By: Sukumar Saldaña on 12-12-2024 Study report [facility] Cardiovascular Services [address] [place] [address] Echo Complete 12/12/241058 MR#: [id number] Acct: [id number] Name: BEN ARROYO Rep #:[id number] : 1945 79 From: Sukumar Saldaña MD Attending Dr: Dr. Ramón Qiu DO Status: ADM MAUREEN Ordering Dr: Mary Anne Tijerina DO Date: 05/28 Location: ICU Sex: F C Admitted: 12/12/24 Reason For Study Reason For Study: CHF Procedure This was a 2D Doppler, Color Flow transthoracic echocardiogram. The study was technically difficult. Due to chest/sternum tenderness, bilateral breast implants, difficulty tolerating probepressure. Exam performed portable in ICU/CCU. Left Ventricle Normal size and thickness. Posterior and inferior hypokinesis. Estimated LVEF 50%. Stage I diastolic dysfunction. Right Ventricle Normal right ventricle. Atria The left and right atria are normal. Aneurysmal atrial septum. Mitral Valve Trivial mitral valve insufficiency. Tricuspid Valve Normal tricuspid valve. Unable to estimate RV systolic pressure due to inadequate jet, pulmonary artery pressure probably normal. Aortic Valve The aortic valve is not well visualized in the short axis view. Moderately calcified aortic valve. Aortic valve sclerosis without stenosis. Mild to moderate aortic valve regurgitation. Pulmonic Valve The pulmonic valve is not well visualized. Great Vessels Normal sized aortic root. Pericardium/Pleural No pericardial effusion. MMode/2D Measurements & Calculations LVIDd: 3.4 cm IVSd: 0.84 cm Ao root diam: 2.8 cm LVIDs: 2.4 cm LVPWd: 0.89 cm RVDd: 2.6 cm FS: 28.0 % LAV(MOD-bp): 32.4 ml LVAd ap4: 20.5 cm2 SV(MOD-sp4): 34.9 ml LAV(MOD-bp) Indexed: 24.5 ml/m2 LVLd ap4: 6.1 cm SI(MOD-sp4): 26.3 ml/m2 LAV(MOD-sp2): 28.3 ml EDV(MOD-sp4): 56.0 ml LAV(MOD-sp4): 28.2 ml EDV(sp4-el): 57.9 ml LVAs ap4: 11.9 cm2 LVLs ap4: 5.6 cm ESV(MOD-sp4): 21.0 ml ESV(sp4-el): 21.5 ml EF(MOD-sp4): 62.4 % EF(sp4-el): 63.0 % SV(sp4-el): 36.5 ml LA A4 area: 11.7 cm2 LA dimension(2D): 3.2 cm RA A4 area: 9.9 cm2 TAPSE: 1.3 cm Time Measurements MV dec time: 0.27 sec Doppler Measurements & Calculations MV E max roosevelt: 78.3 cm/sec Lat Peak E' Roosevelt: 8.0 cm/sec Med Peak E' Roosevelt: 4.5 cm/sec MV A max roosevelt: 99.6 cm/sec E/E' lat: 9.8 E/E' med: 17.3 MV E/A: 0.79 MV V2 max: 108.7 cm/sec MV P1/2t max roosevelt: 80.8 cm/sec Ao V2 max: 150.6 cm/sec MV max P.7 mmHg MV P1/2t: 68.6 msec Ao max P.1 mmHg MV V2 mean: 52.2 cm/sec Ao V2 mean: 95.1 cm/sec MV mean P.4 mmHg MV dec slope: 345.0 cm/sec2 Ao mean P.2 mmHg MV V2 VTI: 23.7 cm MVA(P1/2t): 3.2 cm2 Ao V2 VTI: 28.9 cm AV (velocity ratio): 0.69 AI max roosevelt: 345.8 cm/sec LV V1 max: 82.6 cm/sec PA V2 max: 100.8 cm/sec AI max P.9 mmHg LV V1 max P.7 mmHg PA V2 mean: 70.1 cm/sec LV V1 mean P.9 mmHg AI dec slope: 196.8 cm/sec2 LV V1 mean: 66.9 cm/sec AI P1/2t: 514.7 msec LV V1 VTI: 19.9 cm ECHO/Echo Complete Interpretation Summary The study was technically difficult with suboptimal images. Posterior and inferior hypokinesis. Estimated LVEF 50%. Stage I diastolic dysfunction. Aneurysmal atrial septum. Moderately calcified aortic valve. Aortic valve sclerosis without stenosis. Mildto moderate aortic valve regurgitation. Ordering Physician: Mary Anne Tijerina Referring Physician: Adela Harley Performed By: Natalya Bonds, GAILCS, RVT 12/12/24 1407 Date _ Sukumar Saldaña MD CC: Dr. Adela Harley MD; Dr. Mary Anne Tijerina DO; Dr. Ramón Qiu DO ~ Date Dictated: 12/12/24 1059 Date Transcribed: 12/12/24 1407 Preschool Principal: Signed [facility] Work Phone: Electrocardiogram reportOrde red By: Khanh Hernandez on 12-12-2024 EKG study [facility] Cardiovascular Services [address] [place] [address] 12 Lead EKG 12/12/24 0235 MR#: [id number] Acct: [id number] Name: BEN ARROYO Rep #:[id number] : 1945 79 From: Khanh metzger MD Attending Dr: Dr. Raómn Qiu, Status: ADM MAUREEN Ordering Dr: Mary Anne Tijerina DO Date: 05/28 Location: ICU Sex: F C Admitted: 12/12/24 Test Reason : TIMED Blood Pressure : */* mmHG Vent. Rate : 60 BPM Atrial Rate : 60 BPM P-R Int : 150 ms QRS Dur : 70 ms QT Int : 414 ms P-R-T Axes : 56 -31 62 degrees QTcB Int : 414 ms Normal sinus rhythm Left axis deviation Minimal voltage criteria for LVH, may be normal variant ( R in aVL ) Septal infarct , age undetermined Abnormal ECG When compared with ECG of 11-Dec-2024 18:43, MANUAL COMPARISON REQUIRED DATA IS UNCONFIRMED Confirmed by Khanh Hernandez ([id number]), assignment desk editor LORRAINE WAYNE ([id number]) on 12/12/2024 10:42:06 AM Referred By: Confirmed By: Khanh Hernandez 12/12/24 1042 Date _ Khanh Hernandez MD CC: Dr. Adela Harley MD; Dr. Mary Anne Tijerina DO; Dr. Ramón Qiu, DO ~ Signed [facility] Work Phone: H AND P Exam - [facility] 12-12-2024 H&P Exam - Hospitalist [facility] Medical Records Department [address] [place] [address] H P Exam - Hospitalist 12/12/24 0129 MR#: [id number] Acct: [id number] Name: BEN ARROYO Rep #: [id number] : 1945 79 From: Mary Anne Tijerina DO PCP: Dr. Adela Harley MD Status:ADM MAUREEN Location: ICU [id number] HPI - General General Date of Admission: 12/12/24 Date of Service: 12/12/24 Chief Complaint: Chest pain HPI Narrative BEN ARROYO, is a 79 F who presented to the emergency department [facility] on 12/11/2024 with chief complaint of chest pain. Patient has a strong history of coronary disease with previous bypass and stents. Current heart score is 7. She states she has been getting intermittent chest pain most notably with exertion. She has had increased fatigue and weakness over the last 4 months or so with gradually progressive anginal type symptoms. She states over the last day she has felt fairly poorly and symptoms are consistent but more severe than her previous experience anginal equivalents. As noted, chest pain is predominantly exertional and does seem to micheal some with rest but does not sound like it is completely resolved. She also has associated shortness of breath, nausea, and diaphoresis. She states the pain is pressure-like and substernal. She did get relief with nitroglycerin at home and in the emergency department. Vital signs on presentation showed a temperature of 98.3, heart rate 70, respiratory rate 18, blood pressure was 198/90 and pulse ox was 100% on room air. CBC was overtly unremarkable. Chemistry panel showed hyponatremia at 128. She does have chronic hyponatremia and this is within the realm of her baseline. Your creatinine within normal limits. Glucose was 154 nonfasting. Initial troponin was 18 with a delta of 23 and a 4-hour troponin of 25. EKG is not suggestive of acute ischemia. Chest x-ray is unremarkable. Patient story is strongly suggestive of unstable angina. At the time of my evaluation she was still having some mild substernal chest discomfort so we will place her on a nitro drip and a heparin drip and consult cardiology for anticipated cardiac catheterization. [facility] Medical History Unstable angina Breast cancer Osteopenia Hiatal hernia Osteoarthritis IBS (irritable bowel syndrome) History of hepatitis A Anemia Atherosclerosis of coronary artery of [place] heart without angina pectoris Essential hypertension GERD (gastroesophageal reflux disease) Anxiety Arthritis Hyperlipidemia Hypothyroidism Home Medications ???Medication ???Instructions ???Recorded ???Last Taken ???Type aspirin 81 mg chewable tablet 81 mg PO DAILY@0800 heart 05/30/20 01/26/21 History estradiol 0.01% (0.1 mg/gram) 1 ea vaginal WE supplement 0 05/28/20 History vaginal cream estradiol 0.5 mg tablet 0.5 mg PO QHS 12/22/20 Unknown His tory nitroglycerin 0.4 mg sublingual 0.4 mg sublingual Q5M PRN chest Unknown Rx tablet pain #25 tabs flaxseed oil 1,000 mg capsule 1,000 mg PO DAILY 11/01/23 Unknown History simvastatin 10 mg tablet 10 mg PO DAILY #90 tabs 02/03/24 U nknown Rx lisinopril 10 mg tablet See Rx Instructions .Route 4 Unknown Rx .COMPLEX #135 tabs cholecalciferol (vitamin D3) 50 50 mcg PO QDAY supplement 05/08/24 Unknown History mcg (2,000 unit) capsule cranberry fruit 400 mg capsule 400 mg PO DAILY 05/08/24 Unknown H istory levothyroxine 50 mcg tablet 50 mcg PO DAILY 12/11/24 Unknown H istory Allergy/AdvReac Type Severity Reaction Status Date / Time lactose AdvReac Upset Verified 12/11/24 18:34 Stomach metoprolol AdvReac dizziness Verified 12/11/24 18:34 Penicillins AdvReac Hives Verified 12/11/24 18:34 Family History Sister Breast cancer Grandmother Breast cancer Father CVA (cerebral vascular accident) Myocardial infarction Mother Parkinson's disease Brother Seizures CVA (cerebral vascular accident) Surgical History History of coronary artery stent placement (02/03/21) H/O coronary artery bypass surgery (06/16/99) History of left heart catheterization (01/26/21) History of bilateral breast implants History of shoulder surgery History of hammer toe correction History of bunionectomy History of cholecystectomy History of cataract surgery History of bilateral mastectomy History of right knee surgery History of hysterectomy Social History Smoking Status: Never smoker alcohol intake: never substance use type: does not use what type of physical activity do you participate in: walking frequency: 5-6 times per week ROS Const (more content not included)... Normal [facility] LDL calc ser/plasOrdered By: Mary Anne Tijerina on 12-12-2024 Cholesterol in LDL [Mass/Vol] 74 mg/dL [facility] Comment on above: Fbaqvmvnwj=707-280 m g/dL & Higher Hwpp=350 mg/dL or greater Laboratory - Chemistry and C hemistry - challengeOrdered By: Mary Anne Tijerina on 12-12-2024 AST [Catalytic activity/Vol] 31 U/L <32 [facility] Lipid Profileon 12-12-2024 CHOL:HDL 2.15 Normal [facility] Comment on above: Performed By: #### L 500.4100, L100.0100, L501.9520, L501.4700, L500.4050 #### [facility] [address] [place], [address] Cholesterol [Mass/Vol] 169 mg/dL Normal <=200 [facility] Comment on above: Result Comment: Chol esterol level, Desirable <200 mg/dL Borderline high cholesterol 200-239 mg/dL High cholesterol >=240 mg/dL Recommendations of the NCEP Adult Treatment Panel for the following risk-cutoff thresholds for the [place] population. Performed By: #### L 500.4100, L100.0100, L501.9520, L501.4700, L500.4050 #### [facility] [address] [place], [address] Cholesterol in HDL [Mass/Vol] 79 mg/dL Normal [facility] Comment on above: Result Comment: Julia onal Cholesterol Education Program (NCEP) guidelines: <40 mg/dL: Low HDL-cholesterol (major risk factor for CHD) >= 60 mg/dL: High HDL-cholesterol (negative risk factor for CHD) HDL-cholesterol is affected by a number of factors, e.g. smoking, exercise, hormones, sex and age. Performed By: #### L 500.4100, L100.0100, L501.9520, L501.4700, L500.4050 #### [facility] [address] [place], [address] Cholesterol in LDL [Mass/Vol] 74 mg/dL Normal [facility] Comment on above: Result Comment: Bord vfeeco=136-097 mg/dL Higher Obdj=386 mg/dL or greater Performed By: #### L 500.4100, L100.0100, L501.9520, L501.4700, L500.4050 #### [facility] [address] [place], [address] Cholesterol in VLDL [Mass/Vol] 16 mg/dL Normal 5-40 [facility] Comment on above: Performed By: #### L 500.4100, L100.0100, L501.9520, L501.4700, L500.4050 #### [facility] [address] [place], [address] Triglyceride [Mass/Vol] 81 mg/dL Normal [facility] Comment on above: Result Comment: The drugs N-Acetylcysteine and Metamizole may falsely depress this assay. Normal range: <150 mg/dL Borderline High: 150-199 mg/dL High: 200-499 mg/dL Very High: >500 mg/dL Performed By: #### L 500.4100, L100.0100, L501.9520, L501.4700, L500.4050 #### [facility] [address] [place], [address] Magnesiumon 12-12-2024 Magnesium [Mass/Vol] 1.9 mg/dL Normal 1.5-2.2 [facility] Comment on above: Performed By: #### L 500.4100, L100.0100, L501.9520, L501.4700, L500.4050 #### [facility] [address] [place], [address] Magnesium measurement (mass/ volume)Ordered By: Mary Anne Tijerina on 12-12-2024 Magnesium (Unsp spec) [Mass/Vol] 1.9 mg/dL 1.5-2.2 [facility] Partial Thromboplast Timeon 12-12-2024 aPTT Coag (Bld) [Time] 33.7 s Normal 24.1-36.2 [facility] Comment on above: Performed By: #### L 500.4100, L100.0100, L501.9520, L501.4700, L500.4050 #### [facility] [address] [place], [address] Phosphoruson 12-12-2024 Phosphate [Mass/Vol] 3.0 mg/dL Normal 2.7-4.5 [facility] Comment on above: Performed By: #### L 500.4100, L100.0100, L501.9520, L501.4700, L500.4050 #### [facility] [address] [place], [address] Prothrombin Time w/INRon INR Coag (PPP) [Relative time] 0.9 {INR} Normal [facility] Comment on above: Performed By: #### L 500.4100, L100.0100, L501.9520, L501.4700, L500.4050 #### [facility] [address] [place], [address] PT Coag (PPP) [Time] 12.7 s Normal 11.7-14.9 [facility] Comment on above: Performed By: #### L 500.4100, L100.0100, L501.9520, L501.4700, L500.4050 #### [facility] [address] [place], [address] Screening total cholesterol/ high density lipoprotein (HDL) cholesterol ratioOrdered By: Mary Anne Tijerina on 12-12-2024 Cholesterol.total/Charlene sterol in HDL [Mass ratio] 2.15 {ratio} [facility] Serum globulin measurementOr dered By: Mary Anne Tijerina on 12-12-2024 Globulin (S) [Mass/Vol] 3.4 g/dL 2.2-4.2 [facility] Serum or plasma alanine suero otransferase (ALT) measurementOrdered By: Mary Anne Tijerina on 12-12-2024 ALT [Catalytic activity/Vol] 13 U/L <35 [facility] Serum or plasma albumin lorie urement (mass/volume)Ordered By: Mary Anne Tijerina on 12-12-2024 Albumin [Mass/Vol] 4.6 g/dL 3.4-4.8 [facility] Serum or plasma albumin/glob ulin mass ratioOrdered By: Mary Anne Tijerina on 12-12-2024 Albumin/Globulin [Mass ratio] 1.4 {ratio} 0.9-2.4 [facility] Serum or plasma alkaline rowan sphatase measurementOrdered By: Mary Anne Tijerina on 12-12-2024 ALP [Catalytic activity/Vol] 63 U/L 35-104 [facility] Serum or plasma cholesterol in HDL measurement (mass/volume)Ordered By: Mary Anne Tijerina on 12-12-2024 Cholesterol in HDL [Mass/Vol] 79 mg/dL >40 [facility] Comment on above: National Cholesterol Education Program (NCEP) guidelines:<40 mg/dL: Low HDL-cholesterol (major risk factor for CHD)>= 60 mg/dL: High HDL-cholesterol (negative risk factor for CHD)HDL-cholesterol is affected by a number of factors, e.g. smoking, exercise, hormones, sex and age. Serum or plasma cholesterol measurement (mass/volume)Ordered By: Mary Anne Tijerina on 12-12-2024 Cholesterol [Mass/Vol] 169 mg/dL <201 [facility] Comment on above: Cholesterol level, D esirable <200 mg/dLBorderline high cholesterol 200-239 mg/dLHigh cholesterol >=240 mg/dLRecommendations of the NCEP Adult Treatment Panel for the following risk-cutoff thresholds for the [place] population. Stress Reporton 12-12-2024 Stress Report [facility] Cardiovascular Services [address] [place] [address] MR#: [id number] Acct: [id number] Name: BEN ARROYO Rep #: [id number] : 1945 79 From: Sukumar Saldaña MD Primary Care: Dr. Adela Harley MD Status: ADM MAUREEN Referring Dr: Sex: F C Stress Test Report Date: 12/12/2024 Procedure: Pharmacologic stress nuclear imaging study Indications: Chest pain Consent: Per the patient Procedure: The patient underwent pharmacologic (Regadenoson 0.4mg ) evaluation with a peak heart rate of 112 beats per minute (78%predicted maximal heart rate) and a peak blood pressure of 132/70 mmHg. The baseline ECG demonstrated sinus rhythm. The peak pharmacologic ECG did not show any ischemic changes however 10 minutes into recovery, patient had downsloping inferior ST depressions with chest pain. There were no cardiac dysrhythmias pretest, during pharmacologic infusion, or recovery. Patient had chest discomfort during pharmacologic infusion and in recovery. The patient was injected with 11.0 millicuries of technetium 99m Cardiolite and subsequently rest SPECT Cardiolite nuclear imaging was obtained in the horizontal long, vertical long, and short axis views. The patient underwent pharmacologic (Regadenoson) evaluation. The patient was injected with 34.7 millicuries of technetium 99m Cardiolite and subsequently stress SPECT Cardiolite nuclear imaging was obtained in the horizontal long, vertical long, and short axis views. A gated Cardiolite study at peak stress was obtained. The examination was stopped secondary to completion of protocol. Rest and stress SPECT Cardiolite nuclear imaging status post realignment, normalization, and attenuation correction demonstrate moderate size reversible perfusion defect of the anterior wall suggestive of moderate ischemia. There is end systolic thickening and brightening. The gated Cardiolite study demonstrates myocardial thickening and inward wall motion. The reported LVEF is 83%. Impression: 1. Pharmacologic (Regadenoson) evaluation 2. Peak pharmacologic ECG with no ischemic changes however patient had inferior ST depressions with chest pain 10 minutes into recovery, suggestive of ischemia. 3. There were no cardiac dysrhythmias pretest, during pharmacologic infusion, or recovery. 5. Moderate size reversible perfusion defect of the anterior wall suggestive of moderate ischemia. 6. The gated Cardiolite study reports an LVEF of 83%. This note was generated with Team [employer] Mobile dictation software. It may contain incorrect words, spelling, and punctuation that were not noted in checking the note before signing. 12/12/242 Date Sukumar Saldaña MD CC: Dr. Sadi De Los Santos DO; Dr. Adela Harley MD; Dr. Mary Anne Tijerina DO; Dr. Ramón Qiu DO; Dr. Khanh Hernandez MD Date Dictated: 12/12/241229 Date Transcribed: 12/12/241229 Preschool Principal: VIC Signed Normal [facility] TSH DL <= 0.005 mIU/L QnOrde red By: Mary Anne Tijerina on 12-12-2024 TSH Qn 3.690 uIU/mL 0.300-4.200 [facility] Thyroid Stim Hormone (TSH)on 12-12-2024 TSH 3.690 uIU/mL Normal 0.300-4.200 [facility] Comment on above: Performed By: #### L 500.4100, L100.0100, L501.9520, L501.4700, L500.4050 #### [facility] [place] [place], [id number] Total proteinOrdered By: Michelle Tijerina on 12-12-2024 Protein [Mass/Vol] 8.0 g/dL 5.9-8.4 [facility] Triglycerides measurementOrd ered By: Mary Anne Tijerina on 12-12-2024 Triglyceride [Mass/Vol] 81 mg/dL <199 [facility] Comment on above: The drugs N-Acetylcy steine and Metamizole may falsely depress this assay. Normal range: <150 mg/dLBorderline High: 150-199 mg/dLHigh: 200-499 mg/dLVery High: >500 mg/dL 12 Lead EKGon 12-11-2024 12 Lead EKG [facility] Cardiovascular Services [address] [place] [address] 12 Lead EKG 12/11/24 1843 MR#: [id number] Acct: [id number] Name: BEN ARROYO Rep #: [id number] : 1945 79 From: Khanh Hernandez MD Attending Dr: Dr. Ramón Qiu DO Status: A DM MAUREEN Ordering Dr: Sadi De Los Santos DO Date: 12/11/24 Location: ICU Sex: F C Admitted: 12/12/24 Test Reason : Blood Pressure : */* mmHG Vent. Rate : 71 BPM Atrial Rate : 71 BPM P-R Int : 142 ms QRS Dur : 66 ms QT Int : 380 ms P-R-T Axes : 55 -25 66 degrees QTcB Int : 412 ms Sinus rhythm with Premature supraventricular complexes Minimal voltage criteria for LVH, may be normal variant ( R in aVL ) Septal infarct , age undetermined Abnormal ECG Confirmed by Khanh Hernandez ([id number]), assignment desk editor REILLY HIGGINS ([id number]) on 12/13/2024 6:07:11 AM Referred By: Confirmed By: Khanh Hernandez 12/13/24606 Date Khanh Hernandez MD CC: Dr. Sadi De Los Santos DO; Dr. Adela Harley MD; Dr. Ramón Qiu DO Signed Normal [facility] Absolute lymphocyte countOrd ered By: Sadi De Los Santos on 12-11-2024 Lymphocytes Auto (Unsp spec) [#/Vol] 1.53 10*3/uL 0.83-4.51 [facility] Absolute neutrophil countOrd ered By: Sadi De Los Santos on 12-11-2024 Neutrophils (Bld) [#/Vol] 7.3 10*3/uL 2.0-7.7 [facility] Anion gap in Serum or Plasma Ordered By: Sadi De Los Santos on 12-11-2024 Anion gap [Moles/Vol] 12 mmol/L 5-15 [facility] Automated blood erythrocyte countOrdered By: Sadi De Los Santos on 12-11-2024 RBC (Bld) [#/Vol] 4.12 10*6/uL Low 4.2-5.4 [facility] Comment on above: Performed By: #### L 500.4100, L100.0100, L501.9520, L501.4700, L500.4050 #### [facility] [address] [place], [address] Automated blood hematocrit ( percentage)Ordered By: Sadi De Los Santos on 12-11-2024 Hematocrit (Bld) [Volume fraction] 35.0 % Low 37-47 [facility] Comment on above: Performed By: #### L 500.4100, L100.0100, L501.9520, L501.4700, L500.4050 #### [facility] [address] [place], [place], [id number] Automated lymphocyte count a s percentage of total leukocytesOrdered By: Sadi De Los Santos on 12-11-2024 Lymphocytes/100 WBC Auto (Unsp spec) 15.3 % Low 19-41 [facility] BUN/creatinine ratioOrdered By: Sadi De Los Santos on 12-11-2024 Urea nitrogen/Creatinine [Mass ratio] 24.0 mg/mg High 10-20 [facility] Basic Metabolic Profile (BMP )on 12-11-2024 BUN/CRE 24.0 RATIO High 10-20 [facility] Comment on above: Performed By: #### L 500.4100, L100.0100, L501.9520, L501.4700, L500.4050 #### [facility] [address] [place], [address] ECRCL 41.28 ml/min Low 50-250 [facility] Comment on above: Performed By: #### L 500.4100, L100.0100, L501.9520, L501.4700, L500.4050 #### [facility] [address] [place], [address] GAP 12 Normal 5-15 [facility] Comment on above: Performed By: #### L 500.4100, L100.0100, L501.9520, L501.4700, L500.4050 #### [facility] [address] [place], [address] Potassium [Moles/Vol] 4.1 mmol/L Normal 3.3-5.1 [facility] Comment on above: Performed By: #### L 500.4100, L100.0100, L501.9520, L501.4700, L500.4050 #### [facility] [address] [place], [address] Basophil percentageOrdered B y: Sadi De Los Santos on 12-11-2024 Basophils/100 WBC (Bld) 0.6 % Normal 0-1 [facility] Comment on above: Performed By: #### L 500.4100, L100.0100, L501.9520, L501.4700, L500.4050 #### [facility] [address] [place], [address] CBC W/Diff, Automatedon 12-02 Absolute Lymph 1.53 X10 3/uL Normal 0.83-4.51 [facility] Comment on above: Performed By: #### L 500.4100, L100.0100, L501.9520, L501.4700, L500.4050 #### [facility] [address] [place], [address] Absolute Neut 7.3 X10 3/uL Normal 2.0-7.7 [facility] Comment on above: Performed By: #### L 500.4100, L100.0100, L501.9520, L501.4700, L500.4050 #### [facility] [address] [place], [address] IG% 0.500 Normal 0.0-0.9 [facility] Comment on above: Result Comment: IG% - Immature Granulocytes (promyelocytes, myelocytes and metamyelocytes) > 1% indicates that a LEFT SHIFT is Present. Performed By: #### L 500.4100, L100.0100, L501.9520, L501.4700, L500.4050 #### [facility] [address] [place], [address] Lymphocytes/100 WBC (Bld) 15.3 % Low 19-41 [facility] Comment on above: Performed By: #### L 500.4100, L100.0100, L501.9520, L501.4700, L500.4050 #### [facility] [address] [place], [address] Nucleated RBC (Bld) [#/Vol] 0 10*3/uL Normal 0-5 [facility] Comment on above: Performed By: #### L 500.4100, L100.0100, L501.9520, L501.4700, L500.4050 #### [facility] [address] [place], [address] RDW SD 39.3 fl Normal 35.1-43.9 [facility] Comment on above: Performed By: #### L 500.4100, L100.0100, L501.9520, L501.4700, L500.4050 #### [facility] [address] [place], [address] Carbon dioxide, total [Moles /volume] in Central venous bloodOrdered By: Sadi De Los Santos on 12-11-2024 CO2 [Moles/Vol] 24.6 mmol/L Normal 21.0-32.0 [facility] Comment on above: Performed By: #### L 500.4100, L100.0100, L501.9520, L501.4700, L500.4050 #### [facility] [address] [place], [address] Chest 1 View (Portable)on Chest 1 View (Portable) [facility] Imaging Services [address] [place], [place] [address] Chest 1 View (Portable) MR#: [id number] Acct: [id number] Name: BEN ARROYO Rep #: [id number] : 1945 F 79 From: Benito Everett MD PCP: Dr. Adela Harley MD Status: PRE ER Study: Chest 1 View (Portable) Date of Exam: 12/11/24 Exam# [id number] Ordering Dr: Sadi De Los Santos DO PROCEDURE: CHEST 1 VIEW (PORTABLE) 12/11/2024 REASON FOR EXAM: CHEST PAIN TECHNIQUE: Frontal view of the chest. COMPARISON: 02/01/2021. FINDINGS: The heart is normal in size. The mediastinum is normal in contour. Surgical clips overlie the heart. The lungs are clear. No acute osseous abnormalities. Right upper quadrant surgical clips. RAD/Chest 1 View (Portable) IMPRESSION: No acute cardiopulmonary abnormalities. Reading Location: [place] [address] CC: Dr. Sadi De Los Santos DO; Dr. Adela Harley MD Preschool Principal: Signed Normal [facility] Chloride assayOrdered By: Renata De Los Santos on 12-11-2024 Chloride [Moles/Vol] 92 mmol/L Low 98-108 [facility] Comment on above: Performed By: #### L 500.4100, L100.0100, L501.9520, L501.4700, L500.4050 #### [facility] [address] [place], [place], [address] Emergency Department Summary on 12-11-2024 Emergency Department Summary [facility] Medical Records Department [address] [place] [address] Emergency Department Summary 12/11/24 MR#: [id number] Acct: [id number] Name: BEN ARROYO Rep #: [id number] : 1945 79 From: Sadi De Los Santos DO PCP: Dr. Adela Harley MD Status:REG ER Location: ED HPI History of Present Illness Chief Complaint: Chest Pain Informant: patient Onset/Context/Timing Onset: Today Activity at onset: gradual Timing: Continuous Quality: Positive for Pressure Location: Substernal Worsened By: Nothing Relieved By: NTG and NSAIDS (Aspirin) Associated Symptoms: Positive for Nausea, Diaphoresis, Fever, Lightheadedness and Palpitations; Negative for Vomiting, Dyspnea, Cough or Acid Reflux Narrative Narrative: Patient presents with chest pain that began today. Patient states it came on gradually. Patient states it has been constant. Patient describes it as a pressure. Patient states it is over the substernal area. Patient states she took aspirin and nitroglycerin which helped somewhat. Patient admits to some nausea but denies any vomiting. Patient admits to some diaphoresis and some shortness of breath. Patient admits to a subjective fever but denies any chills. Patient denies any cough. Patient admits to some lightheadedness and palpitations. Patient states she checked her blood pressure at home and it was over 200/100. Patient denies any vomiting. CVD Risk Factors: Positive for Hypertension, Hypercholesterolemia and Family History 1' Negative for Diabetes or Smoking PE Risk Factors: Positive for Cancer; Negative for Recent Travel/Surgery, Recent Immobilization, Prior DVT or PE or OCP + Smoking + >/=35 PFSH PFSH Medical History Unstable angina Breast cancer Osteopenia Hiatal hernia Osteoarthritis IBS (irritable bowel syndrome) History of hepatitis A Anemia Atherosclerosis of coronary artery of [place] heart without angina pectoris Essential hypertension GERD (gastroesophageal reflux disease) Anxiety Arthritis Hyperlipidemia Hypothyroidism Home Medications ???Medication ???Instructions ???Recorded ???Last Taken ???Type aspirin 81 mg chewable tablet 81 mg PO DAILY@0800 heart 05/30/20 01/26/21 History estradiol 0.01% (0.1 mg/gram) 1 ea vaginal WE supplement 0 05/28/20 History vaginal cream estradiol 0.5 mg tablet 0.5 mg PO QHS 12/22/20 Unknown His tory nitroglycerin 0.4 mg sublingual 0.4 mg sublingual Q5M PRN chest Unknown Rx tablet pain #25 tabs flaxseed oil 1,000 mg capsule 1,000 mg PO DAILY 11/01/23 Unknown History simvastatin 10 mg tablet 10 mg PO DAILY #90 tabs 02/03/24 U nknown Rx lisinopril 10 mg tablet See Rx Instructions .Route 4 Unknown Rx .COMPLEX #135 tabs cholecalciferol (vitamin D3) 50 50 mcg PO QDAY supplement 05/08/24 Unknown History mcg (2,000 unit) capsule cranberry fruit 400 mg capsule 400 mg PO DAILY 05/08/24 Unknown H istory levothyroxine 50 mcg tablet 50 mcg PO DAILY 12/11/24 Unknown H istory Allergy/AdvReac Type Severity Reaction Status Date / Time lactose AdvReac Upset Verified 12/11/24 18:34 Stomach metoprolol AdvReac dizziness Verified 12/11/24 18:34 Penicillins AdvReac Hives Verified 12/11/24 18:34 Family History Sister Breast cancer Grandmother Breast cancer Father CVA (cerebral vascular accident) Myocardial infarction Mother Parkinson's disease Brother Seizures CVA (cerebral vascular accident) Surgical History History of coronary artery stent placement (02/03/21) H/O coronary artery bypass surgery (06/16/99) History of left heart catheterization (01/26/21) History of bilateral breast implants History of shoulder surgery History of hammer toe correction History of bunionectomy History of cholecystectomy History of cataract surgery History of bilateral mastectomy History of right knee surgery History of hysterectomy Social History Smoking Status: Never smoker alcohol intake: never substance use type: does not use what type of physical activity do you participate in: walking frequency: 5-6 times per week ROS ROS ED Constitutional Constitutional ED: Reports fever(s) and subjective; Denies chills Eyes Eyes: Denies blurry vision or change in vision ENT ENT ED: Denies rhinorrhea or sore throat Cardiovascular Cardiovascular: Reports chest pain and palpitations Respiratory/Chest Respiratory/Chest: Reports dyspnea; Denies cough Gastrointestinal Gastrointestinal: Reports nausea; Denies vomiting Genitourinary Genitourinary ED: Denies dysuria or hematuria Musculoskeletal Musculo (more content not included)... Normal [facility] Eosinophil percentageOrdered By: Sadi De Los Santos on 12-11-2024 Eosinophils/100 WBC (Bld) 0.5 % Normal 0-5 [facility] Comment on above: Performed By: #### L 500.4100, L100.0100, L501.9520, L501.4700, L500.4050 #### [facility] [address] [place], [address] Erythrocyte distribution wid th ratioOrdered By: Sadi De Los Santos on 12-11-2024 Erythrocyte distribution width (RBC) [Ratio] 12.7 % Normal 11.6-14.6 [facility] Comment on above: Performed By: #### L 500.4100, L100.0100, L501.9520, L501.4700, L500.4050 #### [facility] [address] [place], [place], [id number] Erythrocyte distribution wid th standard deviationOrdered By: Sadi De Los Santos on 12-11-2024 Erythrocyte distribution width (RBC) [Ratio] 39.3 fl 35.1-43.9 [facility] Glomerular filtration rate ( GFR) estimation/1.73 sq m using serum, plasma, or whole bOrdered By: Sadi De Los Santos on 12-11-2024 GFR/1.73 sq M.predicted among non-blacks MDRD (S/P/Bld) [Vol rate/Area] 84 mL/min/{1.73_m2} Normal >60 [facility] Comment on above: mL/min/1.73m2 CKD-EP I Creatinine Equation (2020) Result Comment: mL/m in/1.73m2 CKD-EPI Creatinine Equation (2020) Performed By: #### L 500.4100, L100.0100, L501.9520, L501.4700, L500.4050 #### [facility] [address] [place], [place], [id number] Hemoglobin measurementOrdere d By: Sadi De Los Santos on 12-11-2024 Hemoglobin (Bld) [Mass/Vol] 11.8 g/dL Low 12.0-15.0 [facility] Comment on above: Performed By: #### L 500.4100, L100.0100, L501.9520, L501.4700, L500.4050 #### [facility] [address] [place], [address] Immature granulocytes/100 WB C Auto (Bld)Ordered By: Sadi De Los Santos on 12-11-2024 Immature granulocytes/100 WBC (Bld) 0.500 % 0.0-0.9 [facility] Comment on above: IG% - Immature Granu locytes (promyelocytes, myelocytes and metamyelocytes) > 1% indicates that a LEFT SHIFT is Present. L499.0042on 12-11-2024 Trop T High Sen 23 ng/L High <=14 [facility] Comment on above: Performed By: #### L 499.0042 #### [facility] [address] [place], [address] L499.0043on 12-11-2024 Trop T High Sen 25 ng/L High <=14 [facility] Comment on above: Performed By: #### L 500.4100, L100.0100, L501.9520, L501.4700, L500.4050 #### [facility] [address] [place], [address] L501.4021on 12-11-2024 Trop T High Sen 18 ng/L High <=14 [facility] Comment on above: Performed By: #### L 500.4100, L100.0100, L501.9520, L501.4700, L500.4050 #### [facility] [address] [place], [address] MCV (mean corpuscular volume ) determinationOrdered By: Sadi De Los Santos on 12-11-2024 MCV (RBC) [Entitic vol] 85.0 fL Normal 81-99 [facility] Comment on above: Performed By: #### L 500.4100, L100.0100, L501.9520, L501.4700, L500.4050 #### [facility] [address] [place], [place], [address] Mean corpuscular hemoglobin (MCH) determinationOrdered By: Sadi De Los Santos on 12-11-2024 MCH (RBC) [Entitic mass] 28.6 pg Normal 27.0-32.0 [facility] Comment on above: Performed By: #### L 500.4100, L100.0100, L501.9520, L501.4700, L500.4050 #### [facility] [address] [facility] [place], [address] Mean corpuscular hemoglobin concentration (MCHC) determinationOrdered By: Sadi De Los Santos on 12-11-2024 MCHC (RBC) [Mass/Vol] 33.7 g/dL Normal 32-36 [facility] Comment on above: Performed By: #### L 500.4100, L100.0100, L501.9520, L501.4700, L500.4050 #### [facility] [address] [facility] [address] [place], [place], [id number] Mean platelet volume determi nationOrdered By: Sadi De Los Santos on 12-11-2024 Platelet mean volume (Bld) [Entitic vol] 10.2 fL Normal 6.2-12.0 [facility] Comment on above: Performed By: #### L 500.4100, L100.0100, L501.9520, L501.4700, L500.4050 #### [facility] [address] [facility] [place], [address] Monocyte percentageOrdered B y: Sadi De Los Santos on 12-11-2024 Monocytes/100 WBC (Bld) 10.2 % High 0-10 [facility] Comment on above: Performed By: #### L 500.4100, L100.0100, L501.9520, L501.4700, L500.4050 #### [facility] [address] [place], [address] Neutrophil percentageOrdered By: Sadi De Los Santos on 12-11-2024 Neutrophils/100 WBC (Bld) 72.9 % High 47-70 [facility] Comment on above: Performed By: #### L 500.4100, L100.0100, L501.9520, L501.4700, L500.4050 #### [facility] [address] [place], [address] Nucleated red blood cell per centageOrdered By: Sadi De Los Santos on 12-11-2024 Nucleated RBC/100 WBC (Bld) [Ratio] 0 % 0-5 [facility] Platelet countOrdered By: Renata De Los Santos on 12-11-2024 Platelets (Bld) [#/Vol] 282 10*3/uL Normal 150-450 [facility] Comment on above: Performed By: #### L 500.4100, L100.0100, L501.9520, L501.4700, L500.4050 #### [facility] [address] [place], [address] Potassium measurement (mass/ volume)Ordered By: Sadi De Los Santos on 12-11-2024 Potassium (Unsp spec) [Mass/Vol] 4.1 mmol/L 3.3-5.1 [facility] Serum creatinine measurement (mass/volume)Ordered By: Sadi De Los Santos on 12-11-2024 Creatinine [Mass/Vol] 0.74 mg/dL Normal 0.70-1.20 [facility] Comment on above: Performed By: #### L 500.4100, L100.0100, L501.9520, L501.4700, L500.4050 #### [facility] [address] [place], [address] Serum glucose measurement (m ass/volume)Ordered By: Sadi De Los Santos on 12-11-2024 Glucose [Mass/Vol] 154 mg/dL High 70-99 [facility] Comment on above: Performed By: #### L 500.4100, L100.0100, L501.9520, L501.4700, L500.4050 #### [facility] [address] [place], [address] Serum or plasma calcium lorie urement (mass/volume)Ordered By: Sadi De Los Santos on 12-11-2024 Calcium [Mass/Vol] 9.5 mg/dL Normal 7.6-11.0 [facility] Comment on above: Performed By: #### L 500.4100, L100.0100, L501.9520, L501.4700, L500.4050 #### [facility] [address] [place], [address] Serum or plasma urea nitroge n measurement (mass/volume)Ordered By: Sadi De Los Santos on 12-11-2024 Urea nitrogen [Mass/Vol] 18 mg/dL Normal 4-19 [facility] Comment on above: Performed By: #### L 500.4100, L100.0100, L501.9520, L501.4700, L500.4050 #### [facility] [address] [place], [address] Sodium levelOrdered By: Sadi De Los Santos on 12-11-2024 Sodium [Moles/Vol] 128 mmol/L Low 133-145 [facility] Comment on above: Performed By: #### L 500.4100, L100.0100, L501.9520, L501.4700, L500.4050 #### [facility] [address] [place], [place], [address] Troponin T.cardiac [Mass/vol ume] in Serum or Plasma by High sensitivity methodOrdered By: Sadi De Los Santos on 12-11-2024 Troponin T.cardiac High sensitivity method [Mass/Vol] 25 ng/L High <14 [facility] Troponin T.cardiac High sensitivity method [Mass/Vol] 23 ng/L High <14 [facility] Troponin T.cardiac High sensitivity method [Mass/Vol] 18 ng/L High <14 [facility] White blood cell (WBC) count Ordered By: Sadi De Los Santos on 12-11-2024 WBC (Bld) [#/Vol] 10.0 10*3/uL Normal 4.4-11.0 [facility] Comment on above: Performed By: #### L 500.4100, L100.0100, L501.9520, L501.4700, L500.4050 #### [facility] [address] [place], [address] Absolute lymphocyte countOrd ered By: Aicha Mims on 08-27-2024 Lymphocytes Auto (Unsp spec) [#/Vol] 1.53 10*3/uL 0.83-4.51 [facility] Absolute neutrophil countOrd ered By: Aicha Mims on 08-27-2024 Neutrophils (Bld) [#/Vol] 6.9 10*3/uL 2.0-7.7 [facility] Albumin to globulin ratioOrd ered By: Aicha Mims on 08-27-2024 Albumin/Globulin [Mass ratio] 0.8 {ratio} Low 0.9-2.4 [facility] Automated lymphocyte count a s percentage of total leukocytesOrdered By: Aicha Mims on 08-27-2024 Lymphocytes/100 WBC Auto (Unsp spec) 15.7 % Low 19-41 [facility] Basophil percentageOrdered B y: Aicha Mims on 08-27-2024 Basophils/100 WBC (Bld) 0.5 % 0-1 [facility] Bilirubin directOrdered By: Aicha Mims on 08-27-2024 Bilirubin.direct [Mass/Vol] 0.19 mg/dL 0.00-0.30 [facility] Bilirubin, Directon 08-27-19 25 Bilirubin.direct [Mass/Vol] 0.19 mg/dL Normal 0.00-0.30 [facility] Comment on above: Order Comment: LIBBY JOVEL ORDERED LIVER, LIPID MIEDEL ORDERED TSH,CMP,CBCD Performed By: #### L 500.4100, L100.0100, L501.9520, L501.4700, L500.4050 #### [facility] [address] [place], [address] Bilirubin, totalOrdered By: Aicha Mims on 08-27-2024 Bilirubin [Mass/Vol] 0.80 mg/dL 0.20-1.00 [facility] Comment on above: For patients on eltr ombopag therapy, use of Dimension [place] TBIL is not recommended. Blood urea nitrogen (BUN)/cr eatinine ratioOrdered By: Aicha Mims on 08-27-2024 Urea nitrogen/Creatinine [Mass ratio] 17.3 mg/mg 10- [facility] CBC W/Diff, Automatedon 08-05 Absolute Lymph 1.53 X10 3/uL Normal 0.83-4.51 [facility] Comment on above: Order Comment: LIBBY JOVEL ORDERED LIVER, LIPID MIEDEL ORDERED TSH,CMP,CBCD Performed By: #### L 500.4100, L100.0100, L501.9520, L501.4700, L500.4050 #### [facility] [address] [place], [address] Absolute Neut 6.9 X10 3/uL Normal 2.0-7.7 [facility] Comment on above: Order Comment: LIBBY OJVEL ORDERED LIVER, LIPID MIEDEL ORDERED TSH,CMP,CBCD Performed By: #### L 500.4100, L100.0100, L501.9520, L501.4700, L500.4050 #### [facility] [address] [place], [address] Basophils/100 WBC (Bld) 0.5 % Normal 0-1 [facility] Comment on above: Order Comment: LIBBY JOVEL ORDERED LIVER, LIPID MIEDEL ORDERED TSH,CMP,CBCD Performed By: #### L 500.4100, L100.0100, L501.9520, L501.4700, L500.4050 #### [facility] [address] [place], [address] Eosinophils/100 WBC (Bld) 0.8 % Normal 0-5 [facility] Comment on above: Order Comment: LIBBY JOVEL ORDERED LIVER, LIPID MIEDEL ORDERED TSH,CMP,CBCD Performed By: #### L 500.4100, L100.0100, L501.9520, L501.4700, L500.4050 #### [facility] [address] [place], [address] Erythrocyte distribution width (RBC) [Ratio] 13.2 % Normal 11.6-14.6 [facility] Comment on above: Order Comment: LIBBY JOVEL ORDERED LIVER, LIPID MIEDEL ORDERED TSH,CMP,CBCD Performed By: #### L 500.4100, L100.0100, L501.9520, L501.4700, L500.4050 #### [facility] [address] [place], [address] Hematocrit (Bld) [Volume fraction] 36.7 % Low 37-47 [facility] Comment on above: Order Comment: LIBBY JOVEL ORDERED LIVER, LIPID MIEDEL ORDERED TSH,CMP,CBCD Performed By: #### L 500.4100, L100.0100, L501.9520, L501.4700, L500.4050 #### [facility] [address] [place], [address] Hemoglobin (Bld) [Mass/Vol] 11.9 g/dL Low 12.0-15.0 [facility] Comment on above: Order Comment: LIBBY JOVEL ORDERED LIVER, LIPID MIEDEL ORDERED TSH,CMP,CBCD Performed By: #### L 500.4100, L100.0100, L501.9520, L501.4700, L500.4050 #### [facility] [address] [place], [address] IG% 0.400 Normal 0.0-0.9 [facility] Comment on above: Order Comment: LIBBY TS ORDERED LIVER, LIPID MIEDEL ORDERED TSH,CMP,CBCD Result Comment: IG% - Immature Granulocytes (promyelocytes, myelocytes and metamyelocytes) > 1% indicates that a LEFT SHIFT is Present. Performed By: #### L 500.4100, L100.0100, L501.9520, L501.4700, L500.4050 #### [facility] [address] [place], [address] Lymphocytes/100 WBC (Bld) 15.7 % Low 19-41 [facility] Comment on above: Order Comment: LIBBY TS ORDERED LIVER, LIPID MIEDEL ORDERED TSH,CMP,CBCD Performed By: #### L 500.4100, L100.0100, L501.9520, L501.4700, L500.4050 #### [facility] [address] [place], [address] MCH (RBC) [Entitic mass] 28.7 pg Normal 27.0-32.0 [facility] Comment on above: Order Comment: LIBBY JOVEL ORDERED LIVER, LIPID MIEDEL ORDERED TSH,CMP,CBCD Performed By: #### L 500.4100, L100.0100, L501.9520, L501.4700, L500.4050 #### [facility] [address] [place], [address] MCHC (RBC) [Mass/Vol] 32.4 g/dL Normal 32-36 [facility] Comment on above: Order Comment: LIBBY TS ORDERED LIVER, LIPID MIEDEL ORDERED TSH,CMP,CBCD Performed By: #### L 500.4100, L100.0100, L501.9520, L501.4700, L500.4050 #### [facility] [address] [place], [address] MCV (RBC) [Entitic vol] 88.4 fL Normal 81-99 [facility] Comment on above: Order Comment: LIBBY TS ORDERED LIVER, LIPID MIEDEL ORDERED TSH,CMP,CBCD Performed By: #### L 500.4100, L100.0100, L501.9520, L501.4700, L500.4050 #### [facility] [address] [place], [address] Monocytes/100 WBC (Bld) 12.3 % High 0-10 [facility] Comment on above: Order Comment: LIBBY JOVEL ORDERED LIVER, LIPID MIEDEL ORDERED TSH,CMP,CBCD Performed By: #### L 500.4100, L100.0100, L501.9520, L501.4700, L500.4050 #### [facility] [address] [place], [address] Neutrophils/100 WBC (Bld) 70.3 % High 47-70 [facility] Comment on above: Order Comment: LIBBY JOVEL ORDERED LIVER, LIPID MIEDEL ORDERED TSH,CMP,CBCD Performed By: #### L 500.4100, L100.0100, L501.9520, L501.4700, L500.4050 #### [facility] [address] [place], [address] Nucleated RBC (Bld) [#/Vol] 0 10*3/uL Normal 0-5 [facility] Comment on above: Order Comment: LIBBY JOVEL ORDERED LIVER, LIPID MIEDEL ORDERED TSH,CMP,CBCD Performed By: #### L 500.4100, L100.0100, L501.9520, L501.4700, L500.4050 #### [facility] [address] [place], [address] Platelet mean volume (Bld) [Entitic vol] 9.5 fL Normal 6.2-12.0 [facility] Comment on above: Order Comment: LIBBY JOVEL ORDERED LIVER, LIPID MIEDEL ORDERED TSH,CMP,CBCD Performed By: #### L 500.4100, L100.0100, L501.9520, L501.4700, L500.4050 #### [facility] [address] [place], [address] Platelets (Bld) [#/Vol] 331 10*3/uL Normal 150-450 [facility] Comment on above: Order Comment: LIBBY JOVEL ORDERED LIVER, LIPID MIEDEL ORDERED TSH,CMP,CBCD Performed By: #### L 500.4100, L100.0100, L501.9520, L501.4700, L500.4050 #### [facility] [address] [place], [address] RBC (Bld) [#/Vol] 4.15 10*6/uL Low 4.2-5.4 [facility] Comment on above: Order Comment: LIBBY JOVEL ORDERED LIVER, LIPID MIEDEL ORDERED TSH,CMP,CBCD Performed By: #### L 500.4100, L100.0100, L501.9520, L501.4700, L500.4050 #### [facility] [address] [place], [address] RDW SD 42.9 fl Normal 35.1-43.9 [facility] Comment on above: Order Comment: LIBBY TS ORDERED LIVER, LIPID MIEDEL ORDERED TSH,CMP,CBCD Performed By: #### L 500.4100, L100.0100, L501.9520, L501.4700, L500.4050 #### [facility] [address] [place], [address] WBC (Bld) [#/Vol] 9.8 10*3/uL Normal 4.4-11.0 [facility] Comment on above: Order Comment: LIBBY TS ORDERED LIVER, LIPID MIEDEL ORDERED TSH,CMP,CBCD Performed By: #### L 500.4100, L100.0100, L501.9520, L501.4700, L500.4050 #### [facility] [address] [place], [address] Carbon dioxide measurementOr dered By: Aicha Mism on 08-27-2024 CO2 [Moles/Vol] 26.0 mmol/L 21.0-32.0 [facility] Chloride measurementOrdered By: Aicha Mims on 08-27-2024 Chloride [Moles/Vol] 99 mmol/L 98-107 [facility] Comprehensive Metabolic Prof ilon 08-27-2024 Albumin [Mass/Vol] 3.6 g/dL Normal 3.2-5.0 [facility] Comment on above: Order Comment: LIBBY JOVEL ORDERED LIVER, LIPID MIEDEL ORDERED TSH,CMP,CBCD Performed By: #### L 500.4100, L100.0100, L501.9520, L501.4700, L500.4050 #### [facility] [address] [place], [address] Albumin/Globulin [Mass ratio] 0.8 {ratio} Low 0.9-2.4 [facility] Comment on above: Order Comment: LIBBY JOVEL ORDERED LIVER, LIPID MIEDEL ORDERED TSH,CMP,CBCD Performed By: #### L 500.4100, L100.0100, L501.9520, L501.4700, L500.4050 #### [facility] [address] [place], [address] ALK P 54 U/L Normal 45-117 [facility] Comment on above: Order Comment: LIBBY JOVEL ORDERED LIVER, LIPID MIEDEL ORDERED TSH,CMP,CBCD Performed By: #### L 500.4100, L100.0100, L501.9520, L501.4700, L500.4050 #### [facility] [address] [place], [address] ALT [Catalytic activity/Vol] 15 U/L Normal 13-56 [facility] Comment on above: Order Comment: LIBBY MED ORDERED LIVER, LIPID MIEDEL ORDERED TSH,CMP,CBCD Performed By: #### L 500.4100, L100.0100, L501.9520, L501.4700, L500.4050 #### [facility] [address] [place], [address] AST [Catalytic activity/Vol] 24 U/L Normal 15-37 [facility] Comment on above: Order Comment: LIBBY JOVEL ORDERED LIVER, LIPID MIEDEL ORDERED TSH,CMP,CBCD Performed By: #### L 500.4100, L100.0100, L501.9520, L501.4700, L500.4050 #### [facility] [address] [place], [address] Bilirubin [Mass/Vol] 0.80 mg/dL Normal 0.20-1.00 [facility] Comment on above: Order Comment: LIBBY JOVEL ORDERED LIVER, LIPID MIEDEL ORDERED TSH,CMP,CBCD Result Comment: For patients on eltrombopag therapy, use of Dimension [place] TBIL is not recommended. Performed By: #### L 500.4100, L100.0100, L501.9520, L501.4700, L500.4050 #### [facility] [address] [place], [address] BUN/CRE 17.3 RATIO Normal 10-20 [facility] Comment on above: Order Comment: LIBBY JOVEL ORDERED LIVER, LIPID MIEDEL ORDERED TSH,CMP,CBCD Performed By: #### L 500.4100, L100.0100, L501.9520, L501.4700, L500.4050 #### [facility] [address] [place], [address] CA,Total 9.2 mg/dL Normal 8.5-10.1 [facility] Comment on above: Order Comment: LIBBY JOVEL ORDERED LIVER, LIPID MIEDEL ORDERED TSH,CMP,CBCD Performed By: #### L 500.4100, L100.0100, L501.9520, L501.4700, L500.4050 #### [facility] [address] [place], [address] Chloride [Moles/Vol] 99 mmol/L Normal 98-107 [facility] Comment on above: Order Comment: LIBBY JOVEL ORDERED LIVER, LIPID MIEDEL ORDERED TSH,CMP,CBCD Performed By: #### L 500.4100, L100.0100, L501.9520, L501.4700, L500.4050 #### [facility] [address] [place], [address] CO2 [Moles/Vol] 26.0 mmol/L Normal 21.0-32.0 [facility] Comment on above: Order Comment: LIBBY JOVEL ORDERED LIVER, LIPID MIEDEL ORDERED TSH,CMP,CBCD Performed By: #### L 500.4100, L100.0100, L501.9520, L501.4700, L500.4050 #### [facility] [address] [place], [address] Creatinine [Mass/Vol] 0.70 mg/dL Normal 0.55-1.02 [facility] Comment on above: Order Comment: LIBBY JOVEL ORDERED LIVER, LIPID MIEDEL ORDERED TSH,CMP,CBCD Result Comment: The validity of the calculated GFR GFRAA in patients over 70 years has not been determined. Clinical correlation is essential. Performed By: #### L 500.4100, L100.0100, L501.9520, L501.4700, L500.4050 #### [facility] [address] [place], [address] EST GFR - AA 105 mL/min Normal >60 [facility] Comment on above: Order Comment: LIBBY JOVEL ORDERED LIVER, LIPID MIEDEL ORDERED TSH,CMP,CBCD Result Comment: Afri can [place] GFR Calc Performed By: #### L 500.4100, L100.0100, L501.9520, L501.4700, L500.4050 #### [facility] [address] [place], [address] GAP 9 Normal 5-15 [facility] Comment on above: Order Comment: LIBBY TS ORDERED LIVER, LIPID MIEDEL ORDERED TSH,CMP,CBCD Performed By: #### L 500.4100, L100.0100, L501.9520, L501.4700, L500.4050 #### [facility] [address] [place], [address] GFR/1.73 sq M.predicted among non-blacks MDRD (S/P/Bld) [Vol rate/Area] 87 mL/min/{1.73_m2} Normal >60 [facility] Comment on above: Order Comment: LIBBY JOVEL ORDERED LIVER, LIPID MIEDEL ORDERED TSH,CMP,CBCD Result Comment: Non- GFR Calc Performed By: #### L 500.4100, L100.0100, L501.9520, L501.4700, L500.4050 #### [facility] [address] [place], [address] Globulin (S) [Mass/Vol] 4.4 g/dL High 2.2-4.2 [facility] Comment on above: Order Comment: LIBBY MED ORDERED LIVER, LIPID MIEDEL ORDERED TSH,CMP,CBCD Performed By: #### L 500.4100, L100.0100, L501.9520, L501.4700, L500.4050 #### [facility] [address] [place], [address] Glucose [Mass/Vol] 89 mg/dL Normal 74-106 [facility] Comment on above: Order Comment: LIBBY MED ORDERED LIVER, LIPID MIEDEL ORDERED TSH,CMP,CBCD Performed By: #### L 500.4100, L100.0100, L501.9520, L501.4700, L500.4050 #### [facility] [address] [place], [address] Potassium [Moles/Vol] 3.9 mmol/L Normal 3.5-5.1 [facility] Comment on above: Order Comment: LIBBY JOVEL ORDERED LIVER, LIPID MIEDEL ORDERED TSH,CMP,CBCD Performed By: #### L 500.4100, L100.0100, L501.9520, L501.4700, L500.4050 #### [facility] [address] [place], [address] Sodium [Moles/Vol] 133 mmol/L Low 136-145 [facility] Comment on above: Order Comment: LIBBY JOVEL ORDERED LIVER, LIPID MIEDEL ORDERED TSH,CMP,CBCD Performed By: #### L 500.4100, L100.0100, L501.9520, L501.4700, L500.4050 #### [facility] [address] [place], [address] T PROT 8.0 g/dL Normal 6.4-8.2 [facility] Comment on above: Order Comment: LIBBY JOVEL ORDERED LIVER, LIPID MIEDEL ORDERED TSH,CMP,CBCD Performed By: #### L 500.4100, L100.0100, L501.9520, L501.4700, L500.4050 #### [facility] [address] [place], [address] Urea nitrogen [Mass/Vol] 12 mg/dL Normal 7-18 [facility] Comment on above: Order Comment: LIBBY JOVEL ORDERED LIVER, LIPID MIEDEL ORDERED TSH,CMP,CBCD Performed By: #### L 500.4100, L100.0100, L501.9520, L501.4700, L500.4050 #### [facility] [address] [place], [address] Eosinophil percentageOrdered By: Aicha Mims on 08-27-2024 Eosinophils/100 WBC (Bld) 0.8 % 0-5 [facility] Erythrocyte distribution wid th ratioOrdered By: Aicha Mims on 08-27-2024 Erythrocyte distribution width (RBC) [Ratio] 13.2 % 11.6-14.6 [facility] Erythrocyte distribution wid th standard deviationOrdered By: Aicha Mims on 08-27-2024 Erythrocyte distribution width (RBC) [Ratio] 42.9 fl 35.1-43.9 [facility] Glomerular filtration rate ( GFR) estimationOrdered By: Aicha Mims on 08-27-2024 GFR/1.73 sq M.predicted among non-blacks MDRD (S/P/Bld) [Vol rate/Area] 87 mL/min/{1.73_m2} >60 [facility] Comment on above: Non- GFR Calc Glucose measurementOrdered B y: Aicha Mims on 08-27-2024 Glucose [Mass/Vol] 89 mg/dL 74-106 [facility] Hematocrit Auto (Bld) [Volum e fraction]Ordered By: Aicha Mims on 08-27-2024 Hematocrit (Bld) [Volume fraction] 36.7 % Low 37-47 [facility] Hemoglobin measurementOrdere d By: Aicha Mims on 08-27-2024 Hemoglobin (Bld) [Mass/Vol] 11.9 g/dL Low 12.0-15.0 [facility] High density lipoprotein (HD L) measurementOrdered By: Aicha Mims on 08-27-2024 Cholesterol in HDL [Mass/Vol] 75 mg/dL >40 [facility] Comment on above: The drugs N-Acetylcy steine and Metamizole may falsely depress this assay. Reference Range HDL <40 mg/dL Low HDL Cholesterol HDL >or= 60 mg/dL High HDL Cholesterol Immature granulocytes/100 WB C Auto (Bld)Ordered By: Aicha Mims on 08-27-2024 Immature granulocytes/100 WBC (Bld) 0.400 % 0.0-0.9 [facility] Comment on above: IG% - Immature Granu locytes (promyelocytes, myelocytes and metamyelocytes) > 1% indicates that a LEFT SHIFT is Present. Laboratory - Chemistry and C hemistry - challengeOrdered By: Aicha Mims on 08-27-2024 AST [Catalytic activity/Vol] 24 U/L 15-37 [facility] Lipid Profileon 08-27-2024 Cholesterol [Mass/Vol] 156 mg/dL Normal 200 [facility] Comment on above: Order Comment: LIBBY JOVEL ORDERED LIVER, LIPID MIEDEL ORDERED TSH,CMP,CBCD Result Comment: <200 mg/dL Desirable 200-240 mg/dL Borderline >240 mg/dL High Risk Performed By: #### L 500.4100, L100.0100, L501.9520, L501.4700, L500.4050 #### [facility] [address] [place], [address] Cholesterol in HDL [Mass/Vol] 75 mg/dL Normal [facility] Comment on above: Order Comment: LIBBY JOVEL ORDERED LIVER, LIPID MIEDEL ORDERED TSH,CMP,CBCD Result Comment: The drugs N-Acetylcysteine and Metamizole may falsely depress this assay. Reference Range HDL <40 mg/dL Low HDL Cholesterol HDL >or= 60 mg/dL High HDL Cholesterol Performed By: #### L 500.4100, L100.0100, L501.9520, L501.4700, L500.4050 #### [facility] [address] [place], [address] Cholesterol in LDL [Mass/Vol] 56 mg/dL Normal 0-130 [facility] Comment on above: Order Comment: LIBBY JOVEL ORDERED LIVER, LIPID MIEDEL ORDERED TSH,CMP,CBCD Performed By: #### L 500.4100, L100.0100, L501.9520, L501.4700, L500.4050 #### [facility] [address] [place], [address] Cholesterol in VLDL [Mass/Vol] 25 mg/dL Normal 5-40 [facility] Comment on above: Order Comment: LIBBY JOVEL ORDERED LIVER, LIPID MIEDEL ORDERED TSH,CMP,CBCD Performed By: #### L 500.4100, L100.0100, L501.9520, L501.4700, L500.4050 #### [facility] [address] [place], [address] Triglyceride [Mass/Vol] 127 mg/dL Normal [facility] Comment on above: Order Comment: LIBBY JOVEL ORDERED LIVER, LIPID MIEDEL ORDERED TSH,CMP,CBCD Result Comment: The drugs N-Acetylcysteine and Metamizole may falsely depress this assay. Serum Triglycerides Reference Interval Normal <150 mg/dL Borderline high 150 - 199 mg/dL High 200 - 499 mg/dL Very High > or = 500 mg/dL Performed By: #### L 500.4100, L100.0100, L501.9520, L501.4700, L500.4050 #### [facility] [place] [place], [address] Low density lipoprotein (LDL ) cholesterol measurementOrdered By: Aicha Mims on 08-27-2024 Cholesterol in LDL [Mass/Vol] 56 mg/dL 0-130 [facility] MCV (mean corpuscular volume ) determinationOrdered By: Aicha Mims on 08-27-2024 MCV (RBC) [Entitic vol] 88.4 fL 81-99 [facility] Mean corpuscular hemoglobin (MCH) determinationOrdered By: Aicha Mims on 08-27-2024 MCH (RBC) [Entitic mass] 28.7 pg 27.0-32.0 [facility] Mean corpuscular hemoglobin concentration (MCHC) determinationOrdered By: Aicha Mims on 08-27-2024 MCHC (RBC) [Mass/Vol] 32.4 g/dL 32-36 [facility] Mean platelet volume determi nationOrdered By: Aicha Mims on 08-27-2024 Platelet mean volume (Bld) [Entitic vol] 9.5 fL 6.2-12.0 [facility] Monocyte percentageOrdered B y: Aicha Mims on 08-27-2024 Monocytes/100 WBC (Bld) 12.3 % High 0-10 [facility] Neutrophil percentageOrdered By: Aicha Mims on 08-27-2024 Neutrophils/100 WBC (Bld) 70.3 % High 47-70 [facility] Nucleated red blood cell per centageOrdered By: Aicha Mims on 08-27-2024 Nucleated RBC/100 WBC (Bld) [Ratio] 0 % 0-5 [facility] Platelet countOrdered By: Asif Mims on 08-27-2024 Platelets (Bld) [#/Vol] 331 10*3/uL 150-450 [facility] Potassium measurementOrdered By: Aicha Mims on 08-27-2024 Potassium [Moles/Vol] 3.9 mmol/L 3.5-5.1 [facility] RBC Auto (Bld) [#/Vol]Ordere d By: Aicha Mims on 08-27-2024 RBC (Bld) [#/Vol] 4.15 10*6/uL Low 4.2-5.4 [facility] Serum anion gap measurementO rdered By: Aicha Mims on 08-27-2024 Anion gap [Moles/Vol] 9 mmol/L 5-15 [facility] Serum globulin measurementOr dered By: Aicha Mims on 08-27-2024 Globulin (S) [Mass/Vol] 4.4 g/dL High 2.2-4.2 [facility] Serum or plasma alanine suero otransferase (ALT) measurementOrdered By: Aicha Mims on 08-27-2024 ALT [Catalytic activity/Vol] 15 U/L 13-56 [facility] Serum or plasma albumin lorie urement (mass/volume)Ordered By: Aicha Mims on 08-27-2024 Albumin [Mass/Vol] 3.6 g/dL 3.2-5.0 [facility] Serum or plasma alkaline rowan sphatase measurementOrdered By: Aicha Mims on 08-27-2024 ALP [Catalytic activity/Vol] 54 U/L 45-117 [facility] Serum or plasma calcium lorie urement (mass/volume)Ordered By: Aicha Mims on 08-27-2024 Calcium [Mass/Vol] 9.2 mg/dL 8.5-10.1 [facility] Serum or plasma cholesterol measurement (mass/volume)Ordered By: Aicha Mims on 08-27-2024 Cholesterol [Mass/Vol] 156 mg/dL <200 [facility] Comment on above: <200 mg/dL Desirable 200-240 mg/dL Borderline >240 mg/dL High Risk Serum or plasma creatinine m easurement (mass/volume)Ordered By: Aicha Mims on 08-27-2024 Creatinine [Mass/Vol] 0.70 mg/dL 0.55-1.02 [facility] Comment on above: The validity of the calculated GFR & GFRAA in patients over 70 years has not been determined. Clinical correlation is essential. Serum or plasma thyroid stim ulating hormone (TSH) measurement (units/volume)Ordered By: Aicha Mims on 08-27-2024 TSH Qn 3.550 uIU/mL 0.358-3.740 [facility] Serum or plasma urea nitroge n measurement (mass/volume)Ordered By: Aicha Mims on 08-27-2024 Urea nitrogen [Mass/Vol] 12 mg/dL 7-18 [facility] Sodium levelOrdered By: Ricarda Mims on 08-27-2024 Sodium [Moles/Vol] 133 mmol/L Low 136-145 [facility] Thyroid Stim Hormone (TSH)on 08-27-2024 TSH 3.550 uIU/mL Normal 0.358-3.740 [facility] Comment on above: Order Comment: LIBBY JOVEL ORDERED LIVER, LIPID MIEDEL ORDERED TSH,CMP,CBCD Performed By: #### L 500.4100, L100.0100, L501.9520, L501.4700, L500.4050 #### [facility] [place], [address] Total proteinOrdered By: Antonio Mims on 08-27-2024 Protein [Mass/Vol] 8.0 g/dL 6.4-8.2 [facility] Triglycerides measurementOrd ered By: Aicha Mims on 08-27-2024 Triglyceride [Mass/Vol] 127 mg/dL <199 [facility] Comment on above: The drugs N-Acetylcy steine and Metamizole may falsely depress this assay.Serum Triglycerides Reference Interval Normal <150 mg/dL Borderline high 150 - 199 mg/dL High 200 - 499 mg/dL Very High > or = 500 mg/dL Very low density lipoprotein (VLDL) cholesterol measurementOrdered By: Aicha Mims on 08-27-2024 Very low density lipoprotein (VLDL) cholesterol measurement 25 mg/dL 5-40 [facility] White blood cell (WBC) count Ordered By: Aicha Mims on 08-27-2024 WBC (Bld) [#/Vol] 9.8 10*3/uL 4.4-11.0 [facility] CNOVon 06-25-2024 CNOV Office Visit (CAWSTR ) BEN ARROYO ([id number]) 1945 F T Date Time Provider Department 06/25/24 2:20 PM YESSICA GREENE During your visit today, we recorded the following information about you: Pulse Blood pressure Weight 62/minute 170/84 43.8 kg Yessica Greene MD 06/25/2024 3:16 PM Signed Yessica Greene MD Interventional Cardiology [address] [place] [phone] Chief Complaint No chief complaint on file. [...] 09/21/2022 43.9 (more content not included)... Normal [facility] Cardiology Visit Reporton Cardiology Visit Report [facility] 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 Normal [facility] Bilirubin, Directon 02-27-20 24 Bilirubin.direct [Mass/Vol] 0.24 mg/dL Normal 0.00-0.30 [facility] Comment on above: Order Comment: LIBBY JOVEL ORDERED LIVER, LIPID MIEDEL ORDERED TSH,CMP,CBCD Performed By: #### L 500.4100, L100.0100, L501.9520, L501.4700, L500.4050 #### [facility] [address], [address] CBC W/Diff, Automatedon - Absolute Lymph 1.35 X10 3/uL Normal 0.83-4.51 [facility] Comment on above: Order Comment: LIBBY JOVEL ORDERED LIVER, LIPID MIEDEL ORDERED TSH,CMP,CBCD Performed By: #### L 500.4100, L100.0100, L501.9520, L501.4700, L500.4050 #### [facility] [address] [place], [address] Absolute Neut 6.6 X10 3/uL Normal 2.0-7.7 [facility] Comment on above: Order Comment: LIBBY JOVEL ORDERED LIVER, LIPID MIEDEL ORDERED TSH,CMP,CBCD Performed By: #### L 500.4100, L100.0100, L501.9520, L501.4700, L500.4050 #### [facility] [address] [place], [address] Basophils/100 WBC (Bld) 0.6 % Normal 0-1 [facility] Comment on above: Order Comment: LIBBY JOVEL ORDERED LIVER, LIPID MIEDEL ORDERED TSH,CMP,CBCD Performed By: #### L 500.4100, L100.0100, L501.9520, L501.4700, L500.4050 #### [facility] [address] [place], [address] Eosinophils/100 WBC (Bld) 1.0 % Normal 0-5 [facility] Comment on above: Order Comment: LIBBY TS ORDERED LIVER, LIPID MIEDEL ORDERED TSH,CMP,CBCD Performed By: #### L 500.4100, L100.0100, L501.9520, L501.4700, L500.4050 #### [facility] [address] [place], [address] Erythrocyte distribution width (RBC) [Ratio] 13.1 % Normal 11.6-14.6 [facility] Comment on above: Order Comment: LIBBY TS ORDERED LIVER, LIPID MIEDEL ORDERED TSH,CMP,CBCD Performed By: #### L 500.4100, L100.0100, L501.9520, L501.4700, L500.4050 #### [facility] [address] [place], [address] Hematocrit (Bld) [Volume fraction] 35.4 % Low 37-47 [facility] Comment on above: Order Comment: LIBBY JOVEL ORDERED LIVER, LIPID MIEDEL ORDERED TSH,CMP,CBCD Performed By: #### L 500.4100, L100.0100, L501.9520, L501.4700, L500.4050 #### [facility] [address] [place], [address] Hemoglobin (Bld) [Mass/Vol] 11.5 g/dL Low 12.0-15.0 [facility] Comment on above: Order Comment: LIBBY JOVEL ORDERED LIVER, LIPID MIEDEL ORDERED TSH,CMP,CBCD Performed By: #### L 500.4100, L100.0100, L501.9520, L501.4700, L500.4050 #### [facility] [address] [place], [address] IG% 0.300 Normal 0.0-0.9 [facility] Comment on above: Order Comment: LIBBY TS ORDERED LIVER, LIPID MIEDEL ORDERED TSH,CMP,CBCD Result Comment: IG% - Immature Granulocytes (promyelocytes, myelocytes and metamyelocytes) > 1% indicates that a LEFT SHIFT is Present. Performed By: #### L 500.4100, L100.0100, L501.9520, L501.4700, L500.4050 #### [facility] [address] [place], [address] Lymphocytes/100 WBC (Bld) 14.5 % Low 19-41 [facility] Comment on above: Order Comment: LIBBY TS ORDERED LIVER, LIPID MIEDEL ORDERED TSH,CMP,CBCD Performed By: #### L 500.4100, L100.0100, L501.9520, L501.4700, L500.4050 #### [facility] [address] [place], [address] MCH (RBC) [Entitic mass] 28.3 pg Normal 27.0-32.0 [facility] Comment on above: Order Comment: LIBBY JOVEL ORDERED LIVER, LIPID MIEDEL ORDERED TSH,CMP,CBCD Performed By: #### L 500.4100, L100.0100, L501.9520, L501.4700, L500.4050 #### [facility] [address] [place], [address] MCHC (RBC) [Mass/Vol] 32.5 g/dL Normal 32-36 [facility] Comment on above: Order Comment: LIBBY JOVEL ORDERED LIVER, LIPID MIEDEL ORDERED TSH,CMP,CBCD Performed By: #### L 500.4100, L100.0100, L501.9520, L501.4700, L500.4050 #### [facility] [address] [place], [address] MCV (RBC) [Entitic vol] 87.0 fL Normal 81-99 [facility] Comment on above: Order Comment: LIBBY JOVEL ORDERED LIVER, LIPID MIEDEL ORDERED TSH,CMP,CBCD Performed By: #### L 500.4100, L100.0100, L501.9520, L501.4700, L500.4050 #### [facility] [address] [place], [address] Monocytes/100 WBC (Bld) 12.5 % High 0-10 [facility] Comment on above: Order Comment: LIBBY MED ORDERED LIVER, LIPID MIEDEL ORDERED TSH,CMP,CBCD Performed By: #### L 500.4100, L100.0100, L501.9520, L501.4700, L500.4050 #### [facility] [address] [place], [address] Neutrophils/100 WBC (Bld) 71.1 % High 47-70 [facility] Comment on above: Order Comment: LIBBY TS ORDERED LIVER, LIPID MIEDEL ORDERED TSH,CMP,CBCD Performed By: #### L 500.4100, L100.0100, L501.9520, L501.4700, L500.4050 #### [facility] [address] [place], [address] Nucleated RBC (Bld) [#/Vol] 0 10*3/uL Normal 0-5 [facility] [facility] Comment on above: Order Comment: LIBBY MED ORDERED LIVER, LIPID MIEDEL ORDERED TSH,CMP,CBCD Performed By: #### L 500.4100, L100.0100, L501.9520, L501.4700, L500.4050 #### [facility] [address] [place], [address] Platelet mean volume (Bld) [Entitic vol] 9.6 fL Normal 6.2-12.0 [facility] Comment on above: Order Comment: LIBBY JOVEL ORDERED LIVER, LIPID MIEDEL ORDERED TSH,CMP,CBCD Performed By: #### L 500.4100, L100.0100, L501.9520, L501.4700, L500.4050 #### [facility] [address] [place], [address] Platelets (Bld) [#/Vol] 306 10*3/uL Normal 150-450 [facility] Comment on above: Order Comment: LIBBY JOVEL ORDERED LIVER, LIPID MIEDEL ORDERED TSH,CMP,CBCD Performed By: #### L 500.4100, L100.0100, L501.9520, L501.4700, L500.4050 #### [facility] [address] [place], [address] RBC (Bld) [#/Vol] 4.07 10*6/uL Low 4.2-5.4 [facility] Comment on above: Order Comment: LIBBY JOVEL ORDERED LIVER, LIPID MIEDEL ORDERED TSH,CMP,CBCD Performed By: #### L 500.4100, L100.0100, L501.9520, L501.4700, L500.4050 #### [facility] [address] [place], [address] RDW SD 41.2 fl Normal 35.1-43.9 [facility] Comment on above: Order Comment: LIBBY JOVEL ORDERED LIVER, LIPID MIEDEL ORDERED TSH,CMP,CBCD Performed By: #### L 500.4100, L100.0100, L501.9520, L501.4700, L500.4050 #### [facility] [address] [place], [address] WBC (Bld) [#/Vol] 9.3 10*3/uL Normal 4.4-11.0 [facility] Comment on above: Order Comment: LIBBY JOVEL ORDERED LIVER, LIPID MIEDEL ORDERED TSH,CMP,CBCD Performed By: #### L 500.4100, L100.0100, L501.9520, L501.4700, L500.4050 #### [facility] [address] [place], [address] Comprehensive Metabolic Prof [facility] 02-27-2024 Albumin [Mass/Vol] 3.6 g/dL Normal 3.2-5.0 [facility] Comment on above: Order Comment: LIBBY JOVEL ORDERED LIVER, LIPID MIEDEL ORDERED TSH,CMP,CBCD Performed By: #### L 500.4100, L100.0100, L501.9520, L501.4700, L500.4050 #### [facility] [address] [place], [address] Albumin/Globulin [Mass ratio] 0.9 {ratio} Normal 0.9-2.4 [facility] Comment on above: Order Comment: LIBBY JOVEL ORDERED LIVER, LIPID MIEDEL ORDERED TSH,CMP,CBCD Performed By: #### L 500.4100, L100.0100, L501.9520, L501.4700, L500.4050 #### [facility] [address] [place], [address] ALK P 56 U/L Normal 45-117 [facility] Comment on above: Order Comment: LIBBY JOVEL ORDERED LIVER, LIPID MIEDEL ORDERED TSH,CMP,CBCD Performed By: #### L 500.4100, L100.0100, L501.9520, L501.4700, L500.4050 #### [facility] [address] [place], [address] ALT [Catalytic activity/Vol] 18 U/L Normal 13-56 [facility] Comment on above: Order Comment: LIBBY JOVEL ORDERED LIVER, LIPID MIEDEL ORDERED TSH,CMP,CBCD Performed By: #### L 500.4100, L100.0100, L501.9520, L501.4700, L500.4050 #### [facility] [address] [place], [address] AST [Catalytic activity/Vol] 23 U/L Normal 15-37 [facility] Comment on above: Order Comment: LIBBY JOVLE ORDERED LIVER, LIPID MIEDEL ORDERED TSH,CMP,CBCD Performed By: #### L 500.4100, L100.0100, L501.9520, L501.4700, L500.4050 #### [facility] [address] [place], [address] Bilirubin [Mass/Vol] 0.90 mg/dL Normal 0.20-1.00 [facility] Comment on above: Order Comment: LIBBY JOVEL ORDERED LIVER, LIPID MIEDEL ORDERED TSH,CMP,CBCD Result Comment: For patients on eltrombopag therapy, use of Dimension [place] TBIL is not recommended. Performed By: #### L 500.4100, L100.0100, L501.9520, L501.4700, L500.4050 #### [facility] [address] [place], [address] BUN/CRE 17.9 RATIO Normal 10-20 [facility] Comment on above: Order Comment: LIBBY JOVEL ORDERED LIVER, LIPID MIEDEL ORDERED TSH,CMP,CBCD Performed By: #### L 500.4100, L100.0100, L501.9520, L501.4700, L500.4050 #### [facility] [address] [place], [address] CA,Total 8.6 mg/dL Normal 8.5-10.1 [facility] Comment on above: Order Comment: LIBBY JOVEL ORDERED LIVER, LIPID MIEDEL ORDERED TSH,CMP,CBCD Performed By: #### L 500.4100, L100.0100, L501.9520, L501.4700, L500.4050 #### [facility] [address] [place], [address] Chloride [Moles/Vol] 99 mmol/L Normal 98-107 [facility] Comment on above: Order Comment: LIBBY JOVEL ORDERED LIVER, LIPID MIEDEL ORDERED TSH,CMP,CBCD Performed By: #### L 500.4100, L100.0100, L501.9520, L501.4700, L500.4050 #### [facility] [address] [place], [address] CO2 [Moles/Vol] 28.0 mmol/L Normal 21.0-32.0 [facility] Comment on above: Order Comment: LIBBY JOVEL ORDERED LIVER, LIPID MIEDEL ORDERED TSH,CMP,CBCD Performed By: #### L 500.4100, L100.0100, L501.9520, L501.4700, L500.4050 #### [facility] [address] [place], [address] Creatinine [Mass/Vol] 0.67 mg/dL Normal 0.55-1.02 [facility] Comment on above: Order Comment: LIBBY JOVEL ORDERED LIVER, LIPID MIEDEL ORDERED TSH,CMP,CBCD Result Comment: The validity of the calculated GFR GFRAA in patients over 70 years has not been determined. Clinical correlation is essential. Performed By: #### L 500.4100, L100.0100, L501.9520, L501.4700, L500.4050 #### [facility] [address] [place], [address] EST GFR - AA 110 mL/min Normal >60 [facility] Comment on above: Order Comment: LIBBY JOVEL ORDERED LIVER, LIPID MIEDEL ORDERED TSH,CMP,CBCD Result Comment: Afri can [place] GFR Calc Performed By: #### L 500.4100, L100.0100, L501.9520, L501.4700, L500.4050 #### [facility] [address] [place], [address] GAP 6 Normal 5-15 [facility] Comment on above: Order Comment: LIBBY JOVEL ORDERED LIVER, LIPID MIEDEL ORDERED TSH,CMP,CBCD Performed By: #### L 500.4100, L100.0100, L501.9520, L501.4700, L500.4050 #### [facility] [address] [place], [address] GFR/1.73 sq M.predicted among non-blacks MDRD (S/P/Bld) [Vol rate/Area] 91 mL/min/{1.73_m2} Normal >60 [facility] Comment on above: Order Comment: LIBBY JOVEL ORDERED LIVER, LIPID MIEDEL ORDERED TSH,CMP,CBCD Result Comment: Non- GFR Calc Performed By: #### L 500.4100, L100.0100, L501.9520, L501.4700, L500.4050 #### [facility] [address] [place], [address] Globulin (S) [Mass/Vol] 3.9 g/dL Normal 2.2-4.2 [facility] Comment on above: Order Comment: LIBBY JOVEL ORDERED LIVER, LIPID MIEDEL ORDERED TSH,CMP,CBCD Performed By: #### L 500.4100, L100.0100, L501.9520, L501.4700, L500.4050 #### [facility] [address] [place], [address] Glucose [Mass/Vol] 91 mg/dL Normal 74-106 [facility] Comment on above: Order Comment: LIBBY JOVEL ORDERED LIVER, LIPID MIEDEL ORDERED TSH,CMP,CBCD Performed By: #### L 500.4100, L100.0100, L501.9520, L501.4700, L500.4050 #### [facility] [address] [place], [address] Potassium [Moles/Vol] 4.0 mmol/L Normal 3.5-5.1 [facility] Comment on above: Order Comment: LIBBY TS ORDERED LIVER, LIPID MIEDEL ORDERED TSH,CMP,CBCD Performed By: #### L 500.4100, L100.0100, L501.9520, L501.4700, L500.4050 #### [facility] [address] [place], [address] Sodium [Moles/Vol] 133 mmol/L Low 136-145 [facility] Comment on above: Order Comment: LIBBY JOVEL ORDERED LIVER, LIPID MIEDEL ORDERED TSH,CMP,CBCD Performed By: #### L 500.4100, L100.0100, L501.9520, L501.4700, L500.4050 #### [facility] [address] [place], [address] T PROT 7.5 g/dL Normal 6.4-8.2 [facility] Comment on above: Order Comment: LIBBY MED ORDERED LIVER, LIPID MIEDEL ORDERED TSH,CMP,CBCD Performed By: #### L 500.4100, L100.0100, L501.9520, L501.4700, L500.4050 #### [facility] [address] [place], [address] Urea nitrogen [Mass/Vol] 12 mg/dL Normal 7-18 [facility] Comment on above: Order Comment: LIBBY JOVEL ORDERED LIVER, LIPID MIEDEL ORDERED TSH,CMP,CBCD Performed By: #### L 500.4100, L100.0100, L501.9520, L501.4700, L500.4050 #### [facility] [address] [place], [address] Lipid Profileon 02-27-2024 Cholesterol [Mass/Vol] 156 mg/dL Normal 200 [facility] Comment on above: Order Comment: LIBBY TS ORDERED LIVER, LIPID MIEDEL ORDERED TSH,CMP,CBCD Result Comment: <200 mg/dL Desirable 200-240 mg/dL Borderline >240 mg/dL High Risk Performed By: #### L 500.4100, L100.0100, L501.9520, L501.4700, L500.4050 #### [facility] [address] [place], [address] Cholesterol in HDL [Mass/Vol] 69 mg/dL Normal [facility] Comment on above: Order Comment: LIBBY TS ORDERED LIVER, LIPID MIEDEL ORDERED TSH,CMP,CBCD Result Comment: The drugs N-Acetylcysteine and Metamizole may falsely depress this assay. Reference Range HDL <40 mg/dL Low HDL Cholesterol HDL >or= 60 mg/dL High HDL Cholesterol Performed By: #### L 500.4100, L100.0100, L501.9520, L501.4700, L500.4050 #### [facility] [address] [place], [address] Cholesterol in LDL [Mass/Vol] 63 mg/dL Normal 0-130 [facility] Comment on above: Order Comment: LIBBY TS ORDERED LIVER, LIPID MIEDEL ORDERED TSH,CMP,CBCD Performed By: #### L 500.4100, L100.0100, L501.9520, L501.4700, L500.4050 #### [facility] [address] [place], [address] Cholesterol in VLDL [Mass/Vol] 24 mg/dL Normal 5-40 [facility] Comment on above: Order Comment: LIBBY JOVEL ORDERED LIVER, LIPID MIEDEL ORDERED TSH,CMP,CBCD Performed By: #### L 500.4100, L100.0100, L501.9520, L501.4700, L500.4050 #### [facility] [address] [place], [address] Triglyceride [Mass/Vol] 120 mg/dL Normal [facility] Comment on above: Order Comment: LIBBY JOVEL ORDERED LIVER, LIPID MIEDEL ORDERED TSH,CMP,CBCD Result Comment: The drugs N-Acetylcysteine and Metamizole may falsely depress this assay. Serum Triglycerides Reference Interval Normal <150 mg/dL Borderline high 150 - 199 mg/dL High 200 - 499 mg/dL Very High > or = 500 mg/dL Performed By: #### L 500.4100, L100.0100, L501.9520, L501.4700, L500.4050 #### [facility] [address] [place], [address] Thyroid Stim Hormone (TSH)on 02-27-2024 TSH 2.210 uIU/mL Normal 0.358-3.740 [facility] Comment on above: Order Comment: LIBBY MED ORDERED LIVER, LIPID MIEDEL ORDERED TSH,CMP,CBCD Performed By: #### L 500.4100, L100.0100, L501.9520, L501.4700, L500.4050 #### [facility] [address] [place], [address] Absolute lymphocyte countOrd ered By: Aicha Mims on 08-22-2023 Lymphocytes Auto (Unsp spec) [#/Vol] 1.44 10*3/uL 0.83-4.51 [facility] Automated lymphocyte count a s percentage of total leukocytesOrdered By: Aicha Mims on 08-22-2023 Lymphocytes/100 WBC Auto (Unsp spec) 14.9 % - [facility] Basophil percentageOrdered B y: Aicha Mims on 08-22-2023 Basophils/100 WBC (Bld) 0.5 % 0-1 [facility] Eosinophils/100 WBC (Bld) 0.5 % 0-5 [facility] Hemoglobin (Bld) [Mass/Vol] 12.5 g/dL 12.0-15.0 [facility] Monocytes/100 WBC (Bld) 10.7 % 0-10 [facility] Neutrophils (Bld) [#/Vol] 7.1 10*3/uL 2.0-7.7 [facility] Neutrophils/100 WBC (Bld) 73.1 % 47-70 [facility] WBC (Bld) [#/Vol] 9.7 10*3/uL 4.4-11.0 [facility] Bilirubin [Mass/Vol] 0.80 mg/dL 0.20-1.00 [facility] Comment on above: For patients on eltr ombopag therapy, use of Dimension [place] TBIL is not recommended. Chloride [Moles/Vol] 101 mmol/L 98-107 [facility] Cholesterol [Mass/Vol] 173 mg/dL <200 [facility] Comment on above: <200 mg/dL Desirable 200-240 mg/dL Borderline >240 mg/dL High Risk Glucose [Mass/Vol] 93 mg/dL 74-106 [facility] Potassium [Moles/Vol] 4.2 mmol/L 3.5-5.1 [facility] Protein [Mass/Vol] 7.9 g/dL 6.4-8.2 [facility] Sodium [Moles/Vol] 133 mmol/L 136-145 [facility] Triglyceride [Mass/Vol] 144 mg/dL <199 [facility] Comment on above: The drugs N-Acetylcy steine and Metamizole may falsely depress this assay.Serum Triglycerides Reference Interval Normal <150 mg/dL Borderline high 150 - 199 mg/dL High 200 - 499 mg/dL Very High > or = 500 mg/dL Determination of erythrocyte mean corpuscular volume (MCV)Ordered By: Aicha Mims on 08-22-2023 MCV (RBC) [Entitic vol] 88.2 fL 81-99 [facility] Direct bilirubinOrdered By: Aicha Mims on 08-22-2023 Bilirubin.direct [Mass/Vol] 0.19 mg/dL 0.00-0.30 [facility] Erythrocyte distribution wid th ratioOrdered By: Aicha Mims on 08-22-2023 Erythrocyte distribution width (RBC) [Ratio] 13.4 % 11.6-14.6 [facility] Erythrocyte distribution wid th standard deviationOrdered By: Aicha Mims on 08-22-2023 Erythrocyte distribution width (RBC) [Entitic vol] 43.8 fL 35.1-43.9 [facility] Hematocrit Auto (Bld) [Volum e fraction]Ordered By: Aicha Mims on 08-22-2023 Hematocrit (Bld) [Volume fraction] 38.1 % 37-47 [facility] Immature granulocytes/100 WB C Auto (Bld)Ordered By: Aicha Mims on 08-22-2023 Immature granulocytes/100 WBC (Bld) 0.300 % 0.0-0.9 [facility] Comment on above: IG% - Immature Granu locytes (promyelocytes, myelocytes and metamyelocytes) > 1% indicates that a LEFT SHIFT is Present. Laboratory - Chemistry and C hemistry - challengeOrdered By: Aicha Mims on 08-22-2023 Albumin/Globulin [Mass ratio] 0.9 {ratio} 0.9-2.4 [facility] ALP [Catalytic activity/Vol] 62 U/L 45-117 [facility] ALT [Catalytic activity/Vol] 16 U/L 13-56 [facility] Cholesterol in HDL [Mass/Vol] 77 mg/dL >40 [facility] Comment on above: The drugs N-Acetylcy steine and Metamizole may falsely depress this assay. Reference Range HDL <40 mg/dL Low HDL Cholesterol HDL >or= 60 mg/dL High HDL Cholesterol Cholesterol in LDL [Mass/Vol] 67 mg/dL 0-130 [facility] CO2 [Moles/Vol] 27.0 mmol/L 21.0-32.0 [facility] Globulin (S) [Mass/Vol] 4.1 g/dL 2.2-4.2 [facility] Urea nitrogen/Creatinine [Mass ratio] 17.4 mg/mg 10-20 [facility] - Hematology and Cell countsOrdered By: Aicha Mims on 08-22-2023 MCH (RBC) [Entitic mass] 28.9 pg 27.0-32.0 [facility] MCHC (RBC) [Mass/Vol] 32.8 g/dL 32-36 [facility] Nucleated RBC/100 WBC (Bld) [Ratio] 0 % 0-5 [facility] Platelet mean volume (Bld) [Entitic vol] 9.7 fL 6.2-12.0 [facility] Platelets (Bld) [#/Vol] 323 10*3/uL 150-450 [facility] No Panel InformationOrdered By: Aicha Mims on 08-22-2023 Vitamin D 25-Hydroxy 58.4 ng/mL [facility] Comment on above: Vitamin D 25(OH) Sta tus Range Deficiency <20 ng/mL (50nmol/L) Insufficiency 20 - 30 ng/mL (50 - 75 nmol/L) Sufficiency 30 - 100 ng/mL (75 - 250 nmol/L) Toxicity >100 ng/mL (>250 nmol/L) Estimated GFR (MDRD) Amer 97 mL/min >60 [facility] Comment on above: GFR Calc Estimated GFR (MDRD) Non-Af Amer 80 mL/min >60 [facility] Comment on above: Non- GFR Calc VLDL Cholesterol 29 mg/dL 5-40 [facility] RBC Auto (Bld) [#/Vol]Ordere d By: Aicha Mims on 08-22-2023 RBC (Bld) [#/Vol] 4.32 10*6/uL 4.2-5.4 [facility] Serum or plasma calcium lorie urement (mass/volume)Ordered By: Aicha Mims on 08-22-2023 Calcium [Mass/Vol] 9.4 mg/dL 8.5-10.1 [facility] Serum or plasma creatinine m easurement (mass/volume)Ordered By: Aicha Mims on 08-22-2023 Creatinine [Mass/Vol] 0.75 mg/dL 0.55-1.02 [facility] Comment on above: The validity of the calculated GFR & GFRAA in patients over 70 years has not been determined. Clinical correlation is essential. Serum or plasma thyroid stim ulating hormone (TSH) measurement (units/volume)Ordered By: Aicha Mims on 08-22-2023 TSH Qn 2.41 uIU/mL 0.358-3.74 [facility] Serum or plasma urea nitroge n measurement (mass/volume)Ordered By: Aicha Mims on 08-22-2023 Urea nitrogen [Mass/Vol] 13 mg/dL 7-18 [facility] Thin prep Papanicolaou smear with manual screeningOrdered By: Aicha Mims on 08-22-2023 Thin prep Papanicolaou smear with manual screening 3.8 g/dL 3.2-5.0 [facility] Thin prep Papanicolaou smear with manual screening 21 U/L 15-37 [facility] Thin prep Papanicolaou smear with manual screening 5 5-15 [facility] Basophil percentageOrdered B y: Adela Harley on 02-21-2023 Chloride [Moles/Vol] 102 mmol/L 98-107 [facility] Glucose [Mass/Vol] 89 mg/dL 74-106 [facility] Potassium [Moles/Vol] 4.0 mmol/L 3.5-5.1 [facility] Sodium [Moles/Vol] 133 mmol/L 136-145 [facility] Laboratory - Chemistry and C hemistry - challengeOrdered By: Adela Harley on 02-21-2023 CO2 [Moles/Vol] 29.0 mmol/L 21.0-32.0 [facility] Urea nitrogen/Creatinine [Mass ratio] 18.0 mg/mg 10-20 [facility] No Panel InformationOrdered By: Adela Harley on 02-21-2023 Estimated GFR (MDRD) Amer 93 mL/min >60 [facility] Comment on above: GFR Calc Estimated GFR (MDRD) Non-Af Amer 77 mL/min >60 [facility] Comment on above: Non- GFR Calc Thyroid Stimulating Hormone (TSH) 2.79 uIU/mL 0.358-3.74 [facility] Vitamin D 25-Hydroxy 60.2 ng/mL [facility] Comment on above: Vitamin D 25(OH) Sta tus Range Deficiency <20 ng/mL (50nmol/L) Insufficiency 20 - 30 ng/mL (50 - 75 nmol/L) Sufficiency 30 - 100 ng/mL (75 - 250 nmol/L) Toxicity >100 ng/mL (>250 nmol/L) Serum or plasma calcium lorie urement (mass/volume)Ordered By: Adela Harley on 02-21-2023 Calcium [Mass/Vol] 9.0 mg/dL 8.5-10.1 [facility] Serum or plasma creatinine m easurement (mass/volume)Ordered By: Adela Harley on 02-21-2023 Creatinine [Mass/Vol] 0.78 mg/dL 0.55-1.02 [facility] Comment on above: The validity of the calculated GFR & GFRAA in patients over 70 years has not been determined. Clinical correlation is essential. Serum or plasma urea nitroge n measurement (mass/volume)Ordered By: Adela Harley on 02-21-2023 Urea nitrogen [Mass/Vol] 14 mg/dL 7-18 [facility] Thin prep Papanicolaou smear with manual screeningOrdered By: Adela Harley on 02-21-2023 Thin prep Papanicolaou smear with manual screening 2 5-15 [facility] Basophil percentageOrdered B y: Adela Harley on 01-25-2023 Chloride [Moles/Vol] 101 mmol/L 98-107 [facility] Glucose [Mass/Vol] 128 mg/dL 74-106 [facility] Comment on above: Fasting Glucose resu lt greater than or equal to 126 mg/dL suggests DIABETES MELLITUS per A.D.A. criteria. Potassium [Moles/Vol] 4.0 mmol/L 3.5-5.1 [facility] Sodium [Moles/Vol] 133 mmol/L 136-145 [facility] Laboratory - Chemistry and C hemistry - challengeOrdered By: Adela Harley on 01-25-2023 CO2 [Moles/Vol] 25.0 mmol/L 21.0-32.0 [facility] Urea nitrogen/Creatinine [Mass ratio] 17.0 mg/mg 10-20 [facility] No Panel InformationOrdered By: Adela Harley on 01-25-2023 Estimated GFR (MDRD) Amer 95 mL/min >60 [facility] Comment on above: GFR Calc Estimated GFR (MDRD) Non-Af Amer 78 mL/min >60 [facility] Comment on above: Non- GFR Calc Serum or plasma calcium lorie urement (mass/volume)Ordered By: Adela Harley on 01-25-2023 Calcium [Mass/Vol] 8.7 mg/dL 8.5-10.1 [facility] Serum or plasma creatinine m easurement (mass/volume)Ordered By: Adela Harley on 01-25-2023 Creatinine [Mass/Vol] 0.76 mg/dL 0.55-1.02 [facility] Comment on above: The validity of the calculated GFR & GFRAA in patients over 70 years has not been determined. Clinical correlation is essential. Serum or plasma urea nitroge n measurement (mass/volume)Ordered By: Adela Harley on 01-25-2023 Urea nitrogen [Mass/Vol] 13 mg/dL 7-18 [facility] Thin prep Papanicolaou smear with manual screeningOrdered By: Adela Hraley on 01-25-2023 Thin prep Papanicolaou smear with manual screening 7 5-15 [facility] Absolute lymphocyte countOrd ered By: Katelin Chin on 01-23-2023 Lymphocytes Auto (Unsp spec) [#/Vol] 1.67 10*3/uL 0.83-4.51 [facility] Basophil percentageOrdered B y: Katelin Chin on 01-23-2023 Basophils/100 WBC (Bld) 0.4 % 0-1 [facility] Chloride [Moles/Vol] 91 mmol/L 98-107 [facility] Eosinophils/100 WBC (Bld) 1.0 % 0-5 [facility] Glucose [Mass/Vol] 107 mg/dL 74-106 [facility] Comment on above: Fasting Glucose resu lt from 100 to 125 mg/dL suggests IMPAIRED HOMEOSTASIS per A.D.A. criteria. Neutrophils (Bld) [#/Vol] 6.0 10*3/uL 2.0-7.7 [facility] Neutrophils/100 WBC (Bld) 65.6 % 47-70 [facility] Potassium [Moles/Vol] 3.9 mmol/L 3.5-5.1 [facility] Sodium [Moles/Vol] 125 mmol/L 136-145 [facility] WBC (Bld) [#/Vol] 9.2 10*3/uL 4.4-11.0 [facility] Blood erythrocytes count (nu mber/volume)Ordered By: Katelin Chin on 01-23-2023 RBC (Bld) [#/Vol] 4.17 10*6/uL 4.2-5.4 [facility] Blood hemoglobin measurement (mass/volume)Ordered By: Katelin Chin on 01-23-2023 Hemoglobin (Bld) [Mass/Vol] 12.2 g/dL 12.0-15.0 [facility] Blood lymphocytes/100 leukoc ytesOrdered By: Katelin Chin on 01-23-2023 Lymphocytes/100 WBC (Bld) 18.1 % 19-41 [facility] Blood monocytes/100 leukocyt esOrdered By: Katelin Chin on 01-23-2023 Monocytes/100 WBC (Bld) 14.5 % 0-10 [facility] Blood platelet mean volumeOr dered By: Katelin Chin on 01-23-2023 Platelet mean volume (Bld) [Entitic vol] 9.2 fL 6.2-12.0 [facility] Determination of erythrocyte mean corpuscular volume (MCV)Ordered By: Katelin Chin on 01-23-2023 MCV (RBC) [Entitic vol] 85.6 fL 81-99 [facility] Hematocrit Auto (Bld) [Volum e fraction]Ordered By: Katelin Chin on 01-23-2023 Hematocrit (Bld) [Volume fraction] 35.7 % 37-47 [facility] - Chemistry and C hemistry - challengeOrdered By: Katelin Chin on 01-23-2023 CO2 [Moles/Vol] 26.0 mmol/L 21.0-32.0 [facility] Urea nitrogen/Creatinine [Mass ratio] 18.8 mg/mg 10-20 [facility] - Hematology and Cell countsOrdered By: Katelin Chin on 01-23-2023 Erythrocyte distribution width (RBC) [Entitic vol] 39.5 fL 35.1-43.9 [facility] Erythrocyte distribution width (RBC) [Ratio] 12.6 % 11.6-14.6 [facility] Immature granulocytes/100 WBC (Bld) 0.400 % 0.0-0.9 [facility] Comment on above: IG% - Immature Granu locytes (promyelocytes, myelocytes and metamyelocytes) > 1% indicates that a LEFT SHIFT is Present. MCH (RBC) [Entitic mass] 29.3 pg 27.0-32.0 [facility] Nucleated RBC/100 WBC (Bld) [Ratio] 0 % 0-5 [facility] MCHC Auto (RBC) [Mass/Vol]Or dered By: Katelin Chin on 01-23-2023 MCHC (RBC) [Mass/Vol] 34.2 g/dL 32-36 [facility] No Panel InformationOrdered By: Katelin Chin on 01-23-2023 Estimated Creatinine Clearance Calc 33.69 ml/min [facility] Estimated GFR (MDRD) Amer 106 mL/min >60 [facility] Comment on above: GFR Calc Estimated GFR (MDRD) Non-Af Amer 88 mL/min >60 [facility] Comment on above: Non- GFR Calc Platelets bldOrdered By: [place] Chin on 01-23-2023 Platelets (Bld) [#/Vol] 285 10*3/uL 150-450 [facility] Serum or plasma calcium lorie urement (mass/volume)Ordered By: Katelin Chin on 01-23-2023 Calcium [Mass/Vol] 9.0 mg/dL 8.5-10.1 [facility] Serum or plasma creatinine m easurement (mass/volume)Ordered By: Katelin Chin on 01-23-2023 Creatinine [Mass/Vol] 0.69 mg/dL 0.55-1.02 [facility] Comment on above: The validity of the calculated GFR & GFRAA in patients over 70 years has not been determined. Clinical correlation is essential. Serum or plasma urea nitroge n measurement (mass/volume)Ordered By: Katelin Chin on 01-23-2023 Urea nitrogen [Mass/Vol] 13 mg/dL 7-18 [facility] Thin prep Papanicolaou smear with manual screeningOrdered By: Katelin Chin on 01-23-2023 Thin prep Papanicolaou smear with manual screening 8 5-15 [facility] Basophil percentageOrdered B y: Aicha Mims on 11-17-2022 Bilirubin [Mass/Vol] 0.70 mg/dL 0.20-1.00 [facility] Comment on above: For patients on eltr ombopag therapy, use of Dimension [place] TBIL is not recommended. Cholesterol [Mass/Vol] 174 mg/dL <200 [facility] Comment on above: <200 mg/dL Desirable 200-240 mg/dL Borderline >240 mg/dL High Risk Protein [Mass/Vol] 8.1 g/dL 6.4-8.2 [facility] Triglyceride [Mass/Vol] 120 mg/dL <199 [facility] Comment on above: The drugs N-Acetylcy steine and Metamizole may falsely depress this assay.Serum Triglycerides Reference Interval Normal <150 mg/dL Borderline high 150 - 199 mg/dL High 200 - 499 mg/dL Very High > or = 500 mg/dL Direct bilirubinOrdered By: Aicha Mims on 11-17-2022 Bilirubin.direct [Mass/Vol] 0.16 mg/dL 0.00-0.30 [facility] Laboratory - Chemistry and C hemistry - challengeOrdered By: Aicah Mims on 11-17-2022 ALP [Catalytic activity/Vol] 62 U/L 45-117 [facility] ALT [Catalytic activity/Vol] 22 U/L 13-56 [facility] Globulin (S) [Mass/Vol] 4.2 g/dL 2.2-4.2 [facility] Serum or plasma albumin lorie urement (mass/volume)Ordered By: Aicha Mims on 11-17-2022 Albumin [Mass/Vol] 3.9 g/dL 3.2-5.0 [facility] Serum or plasma cholesterol in HDL measurement (mass/volume)Ordered By: Aicha Mims on 11-17-2022 Cholesterol in HDL [Mass/Vol] 77 mg/dL >40 [facility] Comment on above: The drugs N-Acetylcy steine and Metamizole may falsely depress this assay. Reference Range HDL <40 mg/dL Low HDL Cholesterol HDL >or= 60 mg/dL High HDL Cholesterol Serum or plasma cholesterol in VLDL measurement (mass/volume)Ordered By: Aicha Mims on 11-17-2022 Cholesterol in VLDL [Mass/Vol] 24 mg/dL 5-40 [facility] Serum or plasma low density lipoprotein (LDL) cholesterol measurement (mass/volume)Ordered By: Aicha Mims on 11-17-2022 Cholesterol in LDL [Mass/Vol] 73 mg/dL 0-130 [facility] Thin prep Papanicolaou smear with manual screeningOrdered By: Aicha Mims on 11-17-2022 Thin prep Papanicolaou smear with manual screening 27 U/L 15-37 [facility] Absolute lymphocyte countOrd ered By: Dr. Harley on 08-02-2022 Lymphocytes Auto (Unsp spec) [#/Vol] 1.22 10*3/uL 0.83-4.51 [facility] Basophil percentageOrdered B y: Dr. Harley on 08-02-2022 Basophils/100 WBC (Bld) 0.6 % 0-1 [facility] Eosinophils/100 WBC (Bld) 0.6 % 0-5 [facility] Neutrophils (Bld) [#/Vol] 5.8 10*3/uL 2.0-7.7 [facility] Neutrophils/100 WBC (Bld) 69.5 % 47-70 [facility] WBC (Bld) [#/Vol] 8.3 10*3/uL 4.4-11.0 [facility] Blood erythrocytes count (nu mber/volume)Ordered By: Dr. Hraley on 08-02-2022 RBC (Bld) [#/Vol] 4.43 10*6/uL 4.2-5.4 [facility] Blood hemoglobin measurement (mass/volume)Ordered By: Dr. Harley on 08-02-2022 Hemoglobin (Bld) [Mass/Vol] 12.5 g/dL 12.0-15.0 [facility] Blood lymphocytes/100 leukoc ytesOrdered By: Dr. Harley on 08-02-2022 Lymphocytes/100 WBC (Bld) 14.7 % 19-41 [facility] Blood monocytes/100 leukocyt esOrdered By: Dr. Harley on 08-02-2022 Monocytes/100 WBC (Bld) 14.1 % 0-10 [facility] Blood platelet mean volumeOr dered By: Dr. Harley on 08-02-2022 Platelet mean volume (Bld) [Entitic vol] 9.7 fL 6.2-12.0 [facility] Determination of erythrocyte mean corpuscular volume (MCV)Ordered By: Dr. Harley on 08-02-2022 MCV (RBC) [Entitic vol] 87.4 fL 81-99 [facility] Hematocrit Auto (Bld) [Volum e fraction]Ordered By: Dr. Harley on 08-02-2022 Hematocrit (Bld) [Volume fraction] 38.7 % 37-47 [facility] Laboratory - Hematology and Cell countsOrdered By: Dr. Harley on 08-02-2022 Erythrocyte distribution width (RBC) [Entitic vol] 40.7 fL 35.1-43.9 [facility] Erythrocyte distribution width (RBC) [Ratio] 12.7 % 11.6-14.6 [facility] Immature granulocytes/100 WBC (Bld) 0.500 % 0.0-0.9 [facility] Comment on above: IG% - Immature Granu locytes (promyelocytes, myelocytes and metamyelocytes) > 1% indicates that a LEFT SHIFT is Present. MCH (RBC) [Entitic mass] 28.2 pg 27.0-32.0 [facility] Nucleated RBC/100 WBC (Bld) [Ratio] 0 % 0-5 [facility] MCHC Auto (RBC) [Mass/Vol]Or dered By: Dr. Harley on 08-02-2022 MCHC (RBC) [Mass/Vol] 32.3 g/dL 32-36 [facility] No Panel InformationOrdered By: Dr. Harley on 08-02-2022 Thyroid Stimulating Hormone (TSH) 2.55 uIU/mL 0.358-3.74 [facility] Platelets bldOrdered By: Dr. Harley on 08-02-2022 Platelets (Bld) [#/Vol] 291 10*3/uL 150-450 [facility] Basophil percentageOrdered B y: Aicha Mims on 05-19-2022 Bilirubin [Mass/Vol] 1.00 mg/dL 0.20-1.00 [facility] Comment on above: For patients on eltr ombopag therapy, use of Dimension [place] TBIL is not recommended. Cholesterol [Mass/Vol] 180 mg/dL <200 [facility] Comment on above: <200 mg/dL Desirable 200-240 mg/dL Borderline >240 mg/dL High Risk Protein [Mass/Vol] 8.1 g/dL 6.4-8.2 [facility] Triglyceride [Mass/Vol] 91 mg/dL <199 [facility] Comment on above: The drugs N-Acetylcy steine and Metamizole may falsely depress this assay.Serum Triglycerides Reference Interval Normal <150 mg/dL Borderline high 150 - 199 mg/dL High 200 - 499 mg/dL Very High > or = 500 mg/dL Direct bilirubinOrdered By: Aicha Mims on 05-19-2022 Bilirubin.direct [Mass/Vol] 0.26 mg/dL 0.00-0.30 [facility] - Chemistry and C hemistry - challengeOrdered By: Aicha Mims on 05-19-2022 ALP [Catalytic activity/Vol] 64 U/L 45-117 [facility] ALT [Catalytic activity/Vol] 19 U/L 13-56 [facility] Free T4 [Mass/Vol] 1.27 ng/dL 0.76-1.46 [facility] Globulin (S) [Mass/Vol] 4.1 g/dL 2.2-4.2 [facility] No Panel InformationOrdered By: Aicha Mims on 05-19-2022 Thyroid Stimulating Hormone (TSH) 3.15 uIU/mL 0.358-3.74 [facility] Serum or plasma albumin lorie urement (mass/volume)Ordered By: Aicha Mims on 05-19-2022 Albumin [Mass/Vol] 4.0 g/dL 3.2-5.0 [facility] Serum or plasma cholesterol in HDL measurement (mass/volume)Ordered By: Aicha Mims on 05-19-2022 Cholesterol in HDL [Mass/Vol] 92 mg/dL >40 [facility] Comment on above: The drugs N-Acetylcy steine and Metamizole may falsely depress this assay. Reference Range HDL <40 mg/dL Low HDL Cholesterol HDL >or= 60 mg/dL High HDL Cholesterol Serum or plasma cholesterol in VLDL measurement (mass/volume)Ordered By: Aicha Mims on 05-19-2022 Cholesterol in VLDL [Mass/Vol] 18 mg/dL 5-40 [facility] Serum or plasma low density lipoprotein (LDL) cholesterol measurement (mass/volume)Ordered By: Aicha Mims on 05-19-2022 Cholesterol in LDL [Mass/Vol] 70 mg/dL 0-130 [facility] Thin prep Papanicolaou smear with manual screeningOrdered By: Aicha Mims on 05-19-2022 Thin prep Papanicolaou smear with manual screening 26 U/L 15-37 [facility] Absolute lymphocyte counton 02-18-2022 Lymphocytes Auto (Unsp spec) [#/Vol] 1.08 10*3/uL 0.83-4.51 [facility] Work Phone: Basophil percentageon 2021 Basophils/100 WBC (Bld) 0.5 % 0-1 [facility] Work Phone: Bilirubin [Mass/Vol] 0.90 mg/dL 0.20-1.00 [facility] Work Phone: Comment on above: For patients on eltr ombopag therapy, use of Dimension [place] TBIL is not recommended. Chloride [Moles/Vol] 95 mmol/L 98-107 [facility] Work Phone: Cholesterol [Mass/Vol] 157 mg/dL <200 [facility] Work Phone: Comment on above: <200 mg/dL Desirable 200-240 mg/dL Borderline >240 mg/dL High Risk Eosinophils/100 WBC (Bld) 0.4 % 0-5 [facility] Work Phone: Glucose [Mass/Vol] 92 mg/dL 74-106 [facility] Work Phone: Neutrophils (Bld) [#/Vol] 6.4 10*3/uL 2.0-7.7 [facility] Work Phone: Neutrophils/100 WBC (Bld) 74.6 % 47-70 [facility] Work Phone: Potassium [Moles/Vol] 4.3 mmol/L 3.5-5.1 [facility] Work Phone: [phone] Protein [Mass/Vol] 7.5 g/dL 6.4-8.2 [facility] Work Phone: [phone] Sodium [Moles/Vol] 129 mmol/L 136-145 [facility] Work Phone: [phone] Triglyceride [Mass/Vol] 76 mg/dL <199 [facility] Work Phone: [phone] Comment on above: The drugs N-Acetylcy steine and Metamizole may falsely depress this assay.Serum Triglycerides Reference Interval Normal <150 mg/dL Borderline high 150 - 199 mg/dL High 200 - 499 mg/dL Very High > or = 500 mg/dL WBC (Bld) [#/Vol] 8.5 10*3/uL 4.4-11.0 [facility] Work Phone: [phone] Blood erythrocytes count (nu mber/volume)on 02-18-2022 RBC (Bld) [#/Vol] 4.14 10*6/uL 4.2-5.4 [facility] Work Phone: [phone] Blood hemoglobin measurement (mass/volume)on 02-18-2022 Hemoglobin (Bld) [Mass/Vol] 12.3 g/dL 12.0-15.0 [facility] Work Phone: [phone] Blood lymphocytes/100 leukoc yteson 02-18-2022 Lymphocytes/100 WBC (Bld) 12.7 % 19-41 [facility] Work Phone: [phone] Blood monocytes/100 leukocyt eson 02-18-2022 Monocytes/100 WBC (Bld) 11.4 % 0-10 [facility] Work Phone: [phone] Blood platelet mean volumeon 02-18-2022 Platelet mean volume (Bld) [Entitic vol] 8.8 fL 6.2-12.0 [facility] Work Phone: [phone] Determination of erythrocyte mean corpuscular volume (MCV)on 02-18-2022 MCV (RBC) [Entitic vol] 87.2 fL 81-99 [facility] Work Phone: [phone] Hematocrit Auto (Bld) [Volum e fraction]on 02-18-2022 Hematocrit (Bld) [Volume fraction] 36.1 % 37-47 [facility] Work Phone: [phone] Laboratory - Chemistry and C hemistry - challengeon 02-18-2022 ALP [Catalytic activity/Vol] 49 U/L 45-117 [facility] Work Phone: [phone] ALT [Catalytic activity/Vol] 25 U/L 13-56 [facility] Work Phone: [phone] CO2 [Moles/Vol] 29.0 mmol/L 21.0-32.0 [facility] Work Phone: [phone] Globulin (S) [Mass/Vol] 3.8 g/dL 2.2-4.2 [facility] Work Phone: [phone] Urea nitrogen/Creatinine [Mass ratio] 16.6 mg/mg 10-20 [facility] Work Phone: [phone] Laboratory - Hematology and Cell countson 02-18-2022 Erythrocyte distribution width (RBC) [Entitic vol] 43.3 fL 35.1-43.9 [facility] Work Phone: [phone] Erythrocyte distribution width (RBC) [Ratio] 13.6 % 11.6-14.6 [facility] Work Phone: [phone] Immature granulocytes/100 WBC (Bld) 0.400 % 0.0-0.9 [facility] Work Phone: [phone] Comment on above: IG% - Immature Granu locytes (promyelocytes, myelocytes and metamyelocytes) > 1% indicates that a LEFT SHIFT is Present. MCH (RBC) [Entitic mass] 29.7 pg 27.0-32.0 [facility] Work Phone: [phone] Nucleated RBC/100 WBC (Bld) [Ratio] 0 % 0-5 [facility] Work Phone: [phone] MCHC Auto (RBC) [Mass/Vol]on 02-18-2022 MCHC (RBC) [Mass/Vol] 34.1 g/dL 32-36 [facility] Work Phone: [phone] No Panel Informationon 02-18 Estimated GFR (MDRD) Amer 101 mL/min >60 [facility] Work Phone: [phone] Comment on above: GFR Calc Estimated GFR (MDRD) Non-Af Amer 83 mL/min >60 [facility] Work Phone: [phone] Comment on above: Non- GFR Calc Thyroid Stimulating Hormone (TSH) 5.48 uIU/mL 0.358-3.74 [facility] Work Phone: [phone] Platelets bldon 02-18-2022 Platelets (Bld) [#/Vol] 257 10*3/uL 150-450 [facility] Work Phone: [phone] Serum or plasma albumin lorie urement (mass/volume)on 02-18-2022 Albumin [Mass/Vol] 3.7 g/dL 3.2-5.0 [facility] Work Phone: [phone] Serum or plasma albumin/glob ulin mass ratioon 02-18-2022 Albumin/Globulin [Mass ratio] 1.0 {ratio} 0.9-2.4 [facility] Work Phone: [phone] Serum or plasma calcium lorie urement (mass/volume)on 02-18-2022 Calcium [Mass/Vol] 9.0 mg/dL 8.5-10.1 [facility] Work Phone: [phone] Serum or plasma cholesterol in HDL measurement (mass/volume)on 02-18-2022 Cholesterol in HDL [Mass/Vol] 80 mg/dL >40 [facility] Work Phone: [phone] Comment on above: The drugs N-Acetylcy steine and Metamizole may falsely depress this assay. Reference Range HDL <40 mg/dL Low HDL Cholesterol HDL >or= 60 mg/dL High HDL Cholesterol Serum or plasma cholesterol in VLDL measurement (mass/volume)on 02-18-2022 Cholesterol in VLDL [Mass/Vol] 15 mg/dL 5-40 [facility] Work Phone: Serum or plasma creatinine m easurement (mass/volume)on 02-18-2022 Creatinine [Mass/Vol] 0.72 mg/dL 0.55-1.02 [facility] Work Phone: Comment on above: The validity of the calculated GFR & GFRAA in patients over 70 years has not been determined. Clinical correlation is essential. Serum or plasma low density lipoprotein (LDL) cholesterol measurement (mass/volume)on 02-18-2022 Cholesterol in LDL [Mass/Vol] 62 mg/dL 0-130 [facility] Work Phone: Serum or plasma urea nitroge n measurement (mass/volume)on 02-18-2022 Urea nitrogen [Mass/Vol] 12 mg/dL 7-18 [facility] Work Phone: Thin prep Papanicolaou smear with manual screeningon 02-18-2022 Thin prep Papanicolaou smear with manual screening 27 U/L 15-37 [facility] Work Phone: Thin prep Papanicolaou smear with manual screening 5 5-15 [facility] Work Phone: CNPNon 04-22-2021 CNPN Telephone (AKCPB) BEN ARROYO ([id number]) 1945 F Date Time Provider Department 04/22/21 [facility] During your visit today, we recorded the following information about you: Allergies As of Date: 04/22/2021 Noted Allergy Reaction LACTOSE 02/01/2021 6 - Diarrhea PENICILLINS 05/30/2020 4 - Hives Date Reviewed: 02/03/2021 Reviewed by: Asia Shipley RN - Fully Assessed Reason for Visit: Cardiac Rehab [3551] Cmt: Referral Letter sent Prescriptions as of [...] Encounter Status:Closed by [facility] on 04/22/21 Normal [facility] Basic metabolic 2000 panelon 02-04-2021 Anion gap [Moles/Vol] 12 mmol/L Normal 9-18 [facility] Comment on above: Order Comment: Speci men Type: BLOOD SPECIMEN Performed By: #### 2 4321-2 #### [facility] CLIA [id number] [address] [place] [address] Calcium [Mass/Vol] 9.2 mg/dL Normal 8.5-10.2 [facility] Comment on above: Order Comment: Speci men Type: BLOOD SPECIMEN Performed By: #### 2 4321-2 #### [facility] CLIA [id number] [address] [place] [address] Chloride [Moles/Vol] 98 mmol/L Normal 97-105 [facility] Comment on above: Order Comment: Speci men Type: BLOOD SPECIMEN Performed By: #### 2 4321-2 #### [facility] CLIA [id number] [address] [place] [address] CO2 [Moles/Vol] 22 mmol/L Normal 22-30 [facility] Comment on above: Order Comment: Speci men Type: BLOOD SPECIMEN Performed By: #### 2 4321-2 #### [facility] CLIA [id number] [address] [place] [address] Creatinine [Mass/Vol] 0.71 mg/dL Normal 0.58-0.96 [facility] Comment on above: Order Comment: Speci men Type: BLOOD SPECIMEN Performed By: #### 2 4321-2 #### [facility] CLIA [id number] [address] [place] [address] GFR/1.73 sq M.predicted MDRD (S/P/Bld) [Vol rate/Area] mL/min/{1.73_m2} Normal [facility] Comment on above: Order Comment: Speci [...] GFR. Performed By: #### 2 4321-2 #### [facility] CLIA [id number] [address] [place] [address] Glucose [Mass/Vol] 86 mg/dL Normal 74-99 [facility] Comment on above: Order Comment: Speci men Type: BLOOD SPECIMEN Result Comment: The [place] [employer] (ADA) provides guidance for cutoff [...] Standards of Medical Care in Diabetes 2016, [place] [employer]. Diabetes Care. 2016.39(Suppl 1). Performed By: #### 2 4321-2 #### [facility] CLIA [id number] [address] [place] [address] Potassium [Moles/Vol] 4.1 mmol/L Normal 3.7-5.1 [facility] Comment on above: Order Comment: Speci men Type: BLOOD SPECIMEN Performed By: #### 2 4321-2 #### [facility] CLIA [id number] [address] [place] [address] Sodium [Moles/Vol] 132 mmol/L Low 136-144 [facility] Comment on above: Order Comment: Speci men Type: BLOOD SPECIMEN Performed By: #### 2 4321-2 #### [facility] CLIA [id number] [address] [place] [address] Urea nitrogen [Mass/Vol] 15 mg/dL Normal 7-21 [facility] Comment on above: Order Comment: Speci men Type: BLOOD SPECIMEN Performed By: #### 2 4321-2 #### [facility] CLIA [id number] [address] [place] [address] CASE MANAGEMon 02-04-2021 CASE MANAGEM HNO ID: [id number] Author: Milena Fowler RN Service: ? Author [...] planning services during this admission, please call [phone]. Milena Fowler RN February 04, 2021 11:38 AM SIGNATURE: Milena Fowler RN PATIENT NAME: Ben Arroyo DATE: February 04, 2021 TIME: 11:38 AM PAGER/CONTACT #: [phone] Normal [facility] CBC panel Auto (Bld)on 02-04 Erythrocyte distribution width (RBC) [Ratio] 13.1 % Normal 11.5-15.0 [facility] Comment on above: Order Comment: Speci men Type: BLOOD SPECIMEN Performed By: #### 5 8410-2 #### [facility] CLIA [id number] [address] [place] [address] Hematocrit (Bld) [Volume fraction] 34.1 % Low 36.0-46.0 [facility] Comment on above: Order Comment: Speci men Type: BLOOD SPECIMEN Performed By: #### 5 8410-2 #### [facility] CLIA [id number] [address] [place] [address] Hemoglobin (Bld) [Mass/Vol] 11.6 g/dL Normal 11.5-15.5 [facility] Comment on above: Order Comment: Speci men Type: BLOOD SPECIMEN Performed By: #### 5 8410-2 #### [facility] CLIA [id number] [address] [place] [address] MCH (RBC) [Entitic mass] 29.3 pg Normal 26.0-34.0 [facility] Comment on above: Order Comment: Speci men Type: BLOOD SPECIMEN Performed By: #### 5 8410-2 #### [facility] CLIA [id number] [address] [place] [address] MCHC (RBC) [Mass/Vol] 34.0 g/dL Normal 30.5-36.0 [facility] Comment on above: Order Comment: Speci men Type: BLOOD SPECIMEN Performed By: #### 5 8410-2 #### [facility] CLIA [id number] [address] [place] [address] MCV (RBC) [Entitic vol] 86.1 fL Normal 80.0-100.0 [facility] Comment on above: Order Comment: Speci men Type: BLOOD SPECIMEN Performed By: #### 5 8410-2 #### [facility] CLIA [id number] [address] [place] [address] Nucleated RBC (Bld) [#/Vol] 10*3/uL Normal <0.01 [facility] Comment on above: Order Comment: Speci men Type: BLOOD SPECIMEN Performed By: #### 5 8410-2 #### [facility] CLIA [id number] [address] [place] [address] Platelet mean volume (Bld) [Entitic vol] 9.4 fL Normal 9.0-12.7 [facility] Comment on above: Order Comment: Speci men Type: BLOOD SPECIMEN Performed By: #### 5 8410-2 #### [facility] CLIA [id number] [address] [place] [address] Platelets (Bld) [#/Vol] 282 10*3/uL Normal 150-400 [facility] Comment on above: Order Comment: Speci men Type: BLOOD SPECIMEN Performed By: #### 5 8410-2 #### [facility] CLIA [id number] [address] [place] [address] RBC (Bld) [#/Vol] 3.96 10*6/uL Normal 3.90-5.20 [facility] Comment on above: Order Comment: Speci men Type: BLOOD SPECIMEN Performed By: #### 5 8410-2 #### [facility] CLIA [id number] [address] [place] [address] WBC (Bld) [#/Vol] 11.58 10*3/uL High 3.70-11.00 [facility] Comment on above: Order Comment: Speci men Type: BLOOD SPECIMEN Performed By: #### 5 8410-2 #### [facility] CLIA [id number] [address] [place] [address] CNDSon 02-04-2021 CNDS HNO ID: [id number] Author: Florin Meyer MD Service: Cardiovascular Medicine [...] Greene MD Date: 02/06/2021 Time: 1:37 PM [facility] DISCHARGE SUMMARY Patient: Ben Arroyo : 1945 Date of Admission: 02/01/2021 Date of Discharge: 02/04/2021 Attending at Discharge: Dr. Greene Discharged from: [facility] Inpatient Service Disposition to: Home Condition at Discharge: Stable Principal Diagnosis: Coronary Artery Disease Secondary Diagnoses: Problem List Noted Noted By Resolved Resolved By Unstable angina (HCC) 02/02/2021 Candido Sauceda MD 02/04/2021 Florin Meyer MD Chest pain 02/01/2021 Marta Phillips DO 02/04/2021 Lorraine Guardado MD Medications: Please see Medication Reconciliation Form from date of discharge. Stopped Medications: Medications Discontinued During This Encounter Medication Reason - amLODIPine (NORVASC) 2.5 mg tablet - cholecalciferol (VITAMIN D3) 400 unit tab - Cranberry 400 mg cap - ibuprofen (MOTRIN) 200 mg tablet - levothyroxine (SYNTHROID) 25 mcg tablet - metoprolol tartrate, short acting, (LOPRESSOR) 25 mg tablet - TD-0-NLK-DHA-Fish Oil-Flax-E [phone] my-dd-qo-unit cap - simvastatin (ZOCOR) 40 mg tablet [...] shortness of breath. You went back to [facility]?where you were given aspirin, morphine and nitroglycerin with resolution of your symptoms. ?You subsequently transferred to [facility] for further evaluation. ? During hospitalization, you [...] Crestor. You are to follow-up with your Military Source Operations Officer, Dr. Greene in 2 weeks. Consults: None [...] 1 to 2 weeks. Follow-up with your vac press operator, Dr. Georgette Greene in 2 weeks. Medications [...] 1,000 mg 1, (more content not included)... Normal [facility] PT EDon 02-04-2021 PT ED HNO ID: [id number] Author: Maggie Mckeon RD Service: Nutrition Therapy [...] February 04, 2021 TIME: 12:26 PM PAGER: [phone] Normal [facility] ALLIED HEALTHon 02-03-2021 ALLIED HEALTH HNO ID: [id number] Author: Marleny Bray Nutritionist Public Health Service: Cardiac Rehab Author Type: Nutritionist Public Health Type: Allied Health Filed: 02/03/2021 12:11 PM [...] Used: Cardiac Rehabilitation Brochure Signature: Marleny Bray Nutritionist Public Health Pager: [phone] Date: February 03, 2021 Time: 12:09 PM Normal [facility] LIPID PANEL BASICon 02-04-20 21 Cholesterol [Mass/Vol] 119 mg/dL Normal <200 [facility] Comment on above: Order Comment: Speci men Type: BLOOD SPECIMEN Result Comment: <200 mg/dL, Desirable 200-239 mg/dL, Borderline high >239 mg/dL, High Performed By: #### L IPB ####[facility] [id number] [place] [address] Cholesterol in HDL [Mass/Vol] 67 mg/dL Normal >39 [facility] Comment on above: Order Comment: Speci men Type: BLOOD SPECIMEN Result Comment: 40-5 9 mg/dL, Acceptable >59 mg/dL, High: Negative risk factor for coronary heart disease <40 mg/dL, Low: Positive risk factor for coronary heart disease Performed By: #### L IPB ####[facility] [id number] [place] [address] Cholesterol in LDL [Mass/Vol] 35 mg/dL Normal <100 [facility] Comment on above: Order Comment: Speci men Type: BLOOD SPECIMEN Result Comment: <100 mg/dL, Optimal 100-129 mg/dL, Near optimal/above optimal 130-159 mg/dL, Borderline high 160-189 mg/dL, High >189 mg/dL, Very high Secondary prevention optimal LDL Cholesterol levels are recommended to be < 70 mg/dL Performed By: #### L IPB ####[facility] [id number] [place] [address] Cholesterol in LDL/Cholesterol in HDL [Mass ratio] 0.52 {ratio} Normal <2.54 [facility] Comment on above: Order Comment: Speci men Type: BLOOD SPECIMEN Result Comment: Refe rence: 1. National Cholesterol Education Program ATP III Guideline At-A-Glance Quick Desk Reference: National Heart, Lung, and Blood [place]. National Institutes of Health. 2001: NIH Publication No. 01-3305. 2. An International Atherosclerosis Society position paper: global recommendations for the management of dyslipidemia: executive summary, Atherosclerosis. 2014: 232(2):410-413. Performed By: #### L IPB ####[facility]ORATORYCLIA [id number] [place] [address] Cholesterol in VLDL [Mass/Vol] 17 mg/dL Normal <30 [facility] Comment on above: Order Comment: Speci men Type: BLOOD SPECIMEN Performed By: #### L IPB ####[facility] LABORATORYCLIA [id number] [place] [address] Cholesterol non HDL [Mass/Vol] 52 mg/dL Normal <130 [facility] Comment on above: Order Comment: Speci men Type: BLOOD SPECIMEN Result Comment: <130 mg/dL, Optimal 130-159 mg/dL, Near optimal/above optimal 160-189 mg/dL, Borderline high 190-219 mg/dL, High >219 mg/dL, Very high Secondary prevention optimal non HDL Cholesterol levels are recommended to be <100 mg/dL Performed By: #### L IPB ####[facility] LABORATORYCLIA [id number] [place] [address] Cholesterol.total/Charlene sterol in HDL [Mass ratio] 1.78 {ratio} Normal <5.10 [facility] Comment on above: Order Comment: Speci men Type: BLOOD SPECIMEN Performed By: #### L IPB ####[facility] LABORATORYCLIA [id number] [place] [id number] FASTING TIME 10 hours Normal [facility] Comment on above: Order Comment: Speci men Type: BLOOD SPECIMEN Performed By: #### L IPB ####[facility] LABORATORYCLIA [id number] [place] [address] Triglyceride [Mass/Vol] 85 mg/dL Normal <150 [facility] Comment on above: Order Comment: Speci men Type: BLOOD SPECIMEN Result Comment: <150 mg/dL, Normal 150-199 mg/dL, Borderline high 200-499 mg/dL, High >499 mg/dL, Very high Performed By: #### L IPB ####[facility] LABORATORYCLIA [id number] [place] [id number] 2019 CORONAVIRUSon 1 SARS-CoV-2 (COVID-19) RNA CANDIS+probe Ql (Unsp spec) COVID 19 SOURCE BORDER GUARD: UPPER RESPIRATORY TRACT SWAB COVID 19 RESULT BORDER GUARD: Negative for COVID19 (SARS CoV2) by RT-PCR or equivalent method. This test was developed and its performance characteristics determined by [facility]'s [facility] Packer [facility] [place]. This test has been authorized by FDA under an Emergency Use Authorization (EUA). This test has been validated in accordance with the FDA's Guidance Document Policy for Diagnostics Testing in Laboratories Certified to Perform High Complexity Testing under CLIA prior to Emergency use Authorization for Coronavirus Disease 2019 during the Public Health Emergency issued on September 01, 2019. Test performed by [facility], [facility] [place], [address], [place] [address]. Normal [facility] Comment on above: Performed By: #### C OVID ####[facility] LABCLIA [id number] [place] [address] Basic metabolic 2000 panelon 02-02-2021 Anion gap [Moles/Vol] 9 mmol/L Normal 9-18 [facility] Comment on above: Order Comment: Speci men Type: BLOOD SPECIMEN Performed By: #### 2 4321-2 #### [facility] CLIA [id number] 1 [place] [address] Calcium [Mass/Vol] 9.2 mg/dL Normal 8.5-10.2 [facility] Comment on above: Order Comment: Speci men Type: BLOOD SPECIMEN Performed By: #### 2 4321-2 #### [facility] CLIA [id number] 1 [place] [address] Chloride [Moles/Vol] 101 mmol/L Normal 97-105 [facility] Comment on above: Order Comment: Speci men Type: BLOOD SPECIMEN Performed By: #### 2 4321-2 #### [facility] CLIA [id number] 1 [place] [address] CO2 [Moles/Vol] 24 mmol/L Normal 22-30 [facility] Comment on above: Order Comment: Speci men Type: BLOOD SPECIMEN Performed By: #### 2 4321-2 #### [facility] CLIA [id number] 1 [place] [address] Creatinine [Mass/Vol] 0.70 mg/dL Normal 0.58-0.96 [facility] Comment on above: Order Comment: Speci men Type: BLOOD SPECIMEN Performed By: #### 2 4321-2 #### [facility] CLIA [id number] 1 [place] [address] GFR/1.73 sq M.predicted MDRD (S/P/Bld) [Vol rate/Area] mL/min/{1.73_m2} Normal [facility] Comment on above: Order Comment: Speci [...] GFR. Performed By: #### 2 4321-2 #### [facility] CLIA [id number] 1 [place] [address] Glucose [Mass/Vol] 94 mg/dL Normal 74-99 [facility] Comment on above: Order Comment: Speci men Type: BLOOD SPECIMEN Result Comment: The [place] Diabetes Association (ADA) provides guidance for cutoff [...] Standards of Medical Care in Diabetes 2016, [place] Diabetes Association. Diabetes Care. 2016.39(Suppl 1). Performed By: #### 2 4321-2 #### [facility] CLIA [id number] 1 [place] [address] Potassium [Moles/Vol] 4.5 mmol/L Normal 3.7-5.1 [facility] Comment on above: Order Comment: Speci [facility] Type: BLOOD SPECIMEN Performed By: #### 2 4321-2 #### [facility] CLIA [id number] 1 [place] [address] Sodium [Moles/Vol] 134 mmol/L Low 136-144 [facility] Comment on above: Order Comment: Speci men Type: BLOOD SPECIMEN Performed By: #### 2 4321-2 #### [facility] CLIA [id number] 1 [place] [address] Urea nitrogen [Mass/Vol] 9 mg/dL Normal 7-21 [facility] Comment on above: Order Comment: Speci men Type: BLOOD SPECIMEN Performed By: #### 2 4321-2 #### [facility] CLIA [id number] 1 [place] [address] CBC panel Auto (Bld)on 02-02 Erythrocyte distribution width (RBC) [Ratio] 13.1 % Normal 11.5-15.0 [facility] Comment on above: Order Comment: Speci men Type: BLOOD SPECIMEN Performed By: #### 5 8410-2 #### [facility] CLIA [id number] 1 [place] [address] Hematocrit (Bld) [Volume fraction] 35.0 % Low 36.0-46.0 [facility] Comment on above: Order Comment: Speci men Type: BLOOD SPECIMEN Performed By: #### 5 8410-2 #### [facility] CLIA [id number] 1 [place] [address] Hemoglobin (Bld) [Mass/Vol] 11.8 g/dL Normal 11.5-15.5 [facility] Comment on above: Order Comment: Speci men Type: BLOOD SPECIMEN Performed By: #### 5 8410-2 #### [facility] CLIA [id number] 1 [place] [address] MCH (RBC) [Entitic mass] 29.4 pg Normal 26.0-34.0 [facility] Comment on above: Order Comment: Speci men Type: BLOOD SPECIMEN Performed By: #### 5 8410-2 #### [facility] CLIA [id number] 1 [place] [address] MCHC (RBC) [Mass/Vol] 33.7 g/dL Normal 30.5-36.0 [facility] Comment on above: Order Comment: Speci men Type: BLOOD SPECIMEN Performed By: #### 5 8410-2 #### [facility] CLIA [id number] 1 [place] [address] MCV (RBC) [Entitic vol] 87.1 fL Normal 80.0-100.0 [facility] Comment on above: Order Comment: Speci men Type: BLOOD SPECIMEN Performed By: #### 5 8410-2 #### [facility] CLIA [id number] 1 [place] [address] Nucleated RBC (Bld) [#/Vol] 10*3/uL Normal <0.01 [facility] Comment on above: Order Comment: Speci men Type: BLOOD SPECIMEN Performed By: #### 5 8410-2 #### [facility] CLIA [id number] 1 [place] [address] Platelet mean volume (Bld) [Entitic vol] 9.5 fL Normal 9.0-12.7 [facility] Comment on above: Order Comment: Speci men Type: BLOOD SPECIMEN Performed By: #### 5 8410-2 #### [facility] CLIA [id number] 1 [place] [address] Platelets (Bld) [#/Vol] 267 10*3/uL Normal 150-400 [facility] Comment on above: Order Comment: Speci men Type: BLOOD SPECIMEN Performed By: #### 5 8410-2 #### [facility] CLIA [id number] 1 [place] [address] RBC (Bld) [#/Vol] 4.02 10*6/uL Normal 3.90-5.20 [facility] Comment on above: Order Comment: Speci men Type: BLOOD SPECIMEN Performed By: #### 5 8410-2 #### [facility] CLIA [id number] 1 [place] [address] WBC (Bld) [#/Vol] 7.79 10*3/uL Normal 3.70-11.00 [facility] Comment on above: Order Comment: Speci men Type: BLOOD SPECIMEN Performed By: #### 5 8410-2 #### [facility] CLIA [id number] 1 [place] [address] CONSULTon 02-02-2021 CONSULT HNO ID: [id number] Author: Jase Somers MD Service: Cardiovascular Medicine Author Type: Physician Type: Consults Filed: 02/02/2021 12:11 PM Note Text: CONSULT: CARDIOLOGY SERVICE SERVICE DATE: 02/02/2021 CONSULTING PHYSICIAN: Jase Somers PCP: Adela Harley MD ATTENDING: Candido Sauceda MD REASON FOR CONSULT: Chest pain Subjective CHIEF COMPLAINT: Chest pain [R07.9] HISTORY OF PRESENT ILLNESS: Ms. Arryoo is a 75 year old female with [...] She moved to a new house in [place] approximately a year ago as she was no longer able to take care of her prior yard due to recurrent episodes of exertional chest pressure. Since moving to [place], patient has recently established care with Dr. [...] evaluation with an FFR and rotablation at [facility] this upcoming . However, patient reports that yesterday while laying on the couch, she developed severe substernal chest pressure starting in her lower chest and radiating upwards into her neck, jaw and back. She did experience associated nausea, diaphoresis and shortness of breath. She went back to [place] where she was given aspirin, morphine and 4 sublingual nitroglycerin with resolution of her symptoms. She was subsequently transferred to [facility] for further evaluation. Patient otherwise denies any [...] tab(s) (TOPR (more content not included)... Normal [facility] HIGH SENSITIVITY TROPONIN To n 02-02-2021 [...] MACE. Performed By: #### H STNT #### [facility] CLIA [id number] 1 [place] [address] HIGH SENSITIVITY KAMALA 9 ng/L Normal <12 [...] MACE. Performed By: #### H STNT #### [facility] CLIA [id number] 1 [place] [address] HIGH SENSITIVITY KAMALA 10 ng/L Normal <12 [...] MACE. Performed By: #### H STNT #### [facility] CLIA [id number] 1 [place] [address] HISTORY PHYSICALon HISTORY PHYSICAL HNO ID: [id number] Author: Marta Phillips DO Service: Hospital Medicine Author Type: Physician Type: HANDP Filed: 02/01/2021 9:20 PM Note Text: DEPARTMENT OF HOSPITAL MEDICINE HISTORY AND PHYSICAL EXAM SERVICE DATE: 02/01/2021 SERVICE TIME: 9:16 PM Primary Care Physician: No primary care provider on file. NIGHT AND WEEKEND COVERAGE: From 7am - 7pm, please call Sound After 7pm, please call cross cover pager #[phone] Subjective CHIEF COMPLAINT: Chest pain HPI: This is a 75 year old female who presents with chest pain. History is limited as she was not sent with any paperwork from [place] from the emergency room visit. She was only sent with vital signs and lab work. She recently had a heart catheterization that apparently showed OM1 at 60% occlusion and RCA at 80%. She was apparently scheduled for an FFR and rotablation at [facility]. She presented at [facility] with complaints of chest pain. She relates that her chest pain was in the midsternal area rating up into her neck and jaw down both of her arms. [place] attempted to transfer her to [facility] but there were no beds available. She [...] oil Yes Yes Si,000 mg twice daily. [id number]-DHA-Fish Oil-Flax-E [phone] mh-iy-gu-unit cap Yes No Si,000 mg. amLODIPine (NORVASC) [...] WBC, RB (more content not included)... Normal [facility] CMP FASTINGon 08-27-2019 A:G RATIO 1.4 RATIO Normal 1.3-2.2 [facility] Comment on above: Performed By: #### L IP2 CMPF #### Testing performed at [address] [address] Albumin [Mass/Vol] 4.1 G/dl Normal 3.5-5.0 [facility] Comment on above: Performed By: #### L IP2 CMPF #### Testing performed at [address] [address] ALP [Catalytic activity/Vol] 46 U/L Normal 38-126 [facility] Comment on above: Performed By: #### L IP2, CMPF #### Testing performed at [address] [address] ALT [Catalytic activity/Vol] 17 U/L Normal 14-54 [facility] Comment on above: Performed By: #### L IP2, CMPF #### Testing performed at [address] [address] AST [Catalytic activity/Vol] 28 U/L Normal 15-41 [facility] Comment on above: Performed By: #### L IP2, CMPF #### Testing performed at [address] [address] Bilirubin [Mass/Vol] 0.5 mg/dL Normal 0.2-1.2 [facility] Comment on above: Performed By: #### L IP2, CMPF #### Testing performed at [address] [address] Creatinine [Mass/Vol] 0.67 mg/dL Normal 0.52-1.04 [facility] Comment on above: Performed By: #### L IP2, CMPF #### Testing performed at [address] [place] [address] EST. GFR, >60 Normal [facility] Comment on above: Performed By: #### L IP2, CMPF #### Testing performed at [address] [address] EST. GFR,Non >60 Normal [facility] Comment on above: Performed By: #### L IP2, CMPF #### Testing performed at [address] [address] GFR/1.73 sq M predicted among non-blacks MDRD (S/P/Bld) [Vol rate/Area] Average GFR for 70+ years old = 75. Normal [facility] Comment on above: Result Comment: [employer] [place] Kidney disease, GFR = <60. Kidney failure, GFR = <15. The GFR estimate is not adjusted for extreme body surface area or acute process, nor has it been validated for women or ethnic groups other than and . Performed By: #### L IP2, CMPF #### Testing performed at [address] [address] Protein [Mass/Vol] 7.1 g/dL Normal 6.3-8.2 [facility] Comment on above: Performed By: #### L IP2 CMPF #### Testing performed at [address] [address] Urea nitrogen [Mass/Vol] 14 mg/dL Normal 7-20 [facility] Comment on above: Performed By: #### L IP2 CMPF #### Testing performed at [address] [address] Calcium [Mass/Vol] 9.1 mg/dL Normal 8.4-10.2 [facility] Comment on above: Performed By: #### L IP2 CMPF #### Testing performed at [address] [address] Chloride [Moles/Vol] 97 mmol/L Low 98-107 [facility] Comment on above: Performed By: #### L IP2 CMPF #### Testing performed at [address] [address] CO2 [Moles/Vol] 27 mmol/L Normal 22-30 [facility] Comment on above: Performed By: #### L IP2 CMPF #### Testing performed at [address] [address] Glucose [Mass/Vol] 86 mg/dL Normal 70-100 [facility] Comment on above: Result Comment: NORMAL <100 mg/dL PREDIABETES 101-126 mg/dL DIABETES 126 mg/dL or higher Performed By: #### L IP2, CMPF #### Testing performed at [address] [address] Potassium [Moles/Vol] 4.3 mmol/L Normal 3.5-5.1 [facility] Comment on above: Performed By: #### L IP2 CMPF #### Testing performed at [address] [address] Sodium [Moles/Vol] 132 mmol/L Low 136-145 [facility] Comment on above: Performed By: #### L IP2, CMPF #### Testing performed at [address] [address] LIPID PROFILEon 08-27-2019 Cholesterol [Mass/Vol] 133 mg/dL Normal 100-199 [facility] Comment on above: Performed By: #### L IP2 CMPF #### Testing performed at [address] [address] Cholesterol in HDL [Mass/Vol] 59 mg/dL Normal 40-60 [facility] Comment on above: Performed By: #### L IP2, CMPF #### Testing performed at [address] [address] Cholesterol in LDL [Mass/Vol] 59 mg/dL Normal 0-100 [facility] Comment on above: Performed By: #### L IP2, CMPF #### Testing performed at [address] [address] Cholesterol in VLDL [Mass/Vol] 15 mg/dL Normal 5.0-25.0 [facility] Comment on above: Performed By: #### L IP2, CMPF #### Testing performed at [address] [address] Cholesterol.total/Charlene sterol in HDL [Mass ratio] 2.25 {ratio} Normal [facility] Comment on above: Result Comment: RISK TOTAL/HDL RATIO MEN WOMEN 1/2 AVERAGE 3.43 3.27 AVERAGE 4.97 4.44 2X AVERAGE 9.55 7.05 3X AVERAGE 23.99 11.04 Performed By: #### L IP2, CMPF #### Testing performed at [address] [address] Triglyceride [Mass/Vol] 74 mg/dL Normal <150 [facility] Comment on above: Performed By: #### L IP2, CMPF #### Testing performed at [address] [address] CBCon 03-06-2019 ABSOLUTE BAS 0.0 10*3/uL Normal 0.0-0.2 [facility] Comment on above: Performed By: #### T SH2, T42, LIP2, ACBC, CMPF #### Testing performed at [address] [address] ABSOLUTE EOS 0.10 10*3/uL Normal 0.0-0.7 [facility] Comment on above: Performed By: #### T SH2, T42, LIP2, ACBC, CMPF #### Testing performed at [address] [address] ABSOLUTE NEUTROPHIL COUNT 6.4 10*3/uL Normal 1.4-6.5 [facility] Comment on above: Performed By: #### T SH2, T42, LIP2, ACBC, CMPF #### Testing performed at [address] [address] Basophils/100 WBC (Bld) 0.5 % Normal 0.0-2.0 [facility] Comment on above: Performed By: #### T SH2, T42, LIP2, ACBC, CMPF #### Testing performed at [address] [place] [address] DTYPE AUTO DIFF Normal [facility] Comment on above: Performed By: #### T SH2, T42, LIP2, ACBC, CMPF #### Testing performed at [address] [address] Eosinophils/100 WBC (Bld) 0.8 % Normal 0.0-11.0 [facility] Comment on above: Performed By: #### T SH2, T42, LIP2, ACBC, CMPF #### Testing performed at [address] [address] Lymphocytes (Bld) [#/Vol] 1.20 10*3/uL Normal 1.2-3.4 [facility] Comment on above: Performed By: #### T SH2, T42, LIP2, ACBC, CMPF #### Testing performed at [address] [address] Lymphocytes/100 WBC (Bld) 14.0 % Low 20.0-55.0 [facility] Comment on above: Performed By: #### T SH2, T42, LIP2, ACBC, CMPF #### Testing performed at [address] [address] Monocytes (Bld) [#/Vol] 1.0 10*3/uL High 0.0-0.7 [facility] Comment on above: Performed By: #### T SH2, T42, LIP2, ACBC, CMPF #### Testing performed at [address] [address] Monocytes/100 WBC (Bld) 11.4 % High 0.0-10.0 [facility] Comment on above: Performed By: #### T SH2, T42, LIP2, ACBC, CMPF #### Testing performed at [address] [address] Neutrophils/100 WBC (Bld) 73.3 % Normal 37.0-75.0 [facility] Comment on above: Performed By: #### T SH2, T42, LIP2, ACBC, CMPF #### Testing performed at [address] [address] Erythrocyte distribution width (RBC) [Ratio] 14.1 % Normal 11.5-14.5 [facility] Comment on above: Performed By: #### T SH2, T42, LIP2, ACBC, CMPF #### Testing performed at [address] [address] Hematocrit (Bld) [Volume fraction] 35.4 % Low 36.0-48.0 [facility] Comment on above: Performed By: #### T SH2, T42, LIP2, ACBC, CMPF #### Testing performed at [address] [address] Hemoglobin (Bld) [Mass/Vol] 11.9 g/dL Low 12.0-16.0 [facility] Comment on above: Performed By: #### T SH2, T42, LIP2, ACBC, CMPF #### Testing performed at [address] [address] MCH (RBC) [Entitic mass] 29.0 pg Normal 26.0-35.0 [facility] Comment on above: Performed By: #### T SH2, T42, LIP2, ACBC, CMPF #### Testing performed at [address] [address] MCHC (RBC) [Mass/Vol] 33.7 g/dL Normal 27.0-37.0 [facility] Comment on above: Performed By: #### T SH2, T42, LIP2, ACBC, CMPF #### Testing performed at [address] [address] MCV (RBC) [Entitic vol] 86.1 fL Normal 80.0-100.0 [facility] Comment on above: Performed By: #### T SH2, T42, LIP2, ACBC, CMPF #### Testing performed at [address] [address] Platelet mean volume (Bld) [Entitic vol] 7.8 fL Normal 7.4-11.0 [facility] Comment on above: Performed By: #### T SH2, T42, LIP2, ACBC, CMPF #### Testing performed at [address] [address] Platelets (Bld) [#/Vol] 291 10*3/uL Normal 130.0-400.0 [facility] Comment on above: Performed By: #### T SH2, T42, LIP2, ACBC, CMPF #### Testing performed at [address] [address] RBC (Bld) [#/Vol] 4.12 10*6/uL Normal 4.0-5.4 [facility] Comment on above: Performed By: #### T SH2, T42, LIP2, ACBC, CMPF #### Testing performed at [address] [address] WBC (Bld) [#/Vol] 8.7 10*3/uL Normal 3.6-11.0 [facility] Comment on above: Performed By: #### T SH2, T42, LIP2, ACBC, CMPF #### Testing performed at [address] [address] CMP FASTINGon 03-06-2019 A:G RATIO 1.2 RATIO Low 1.3-2.2 [facility] Comment on above: Performed By: #### T SH2, T42, LIP2, ACBC, CMPF #### Testing performed at [address] [address] Albumin [Mass/Vol] 4.4 G/dl Normal 3.5-5.0 [facility] Comment on above: Performed By: #### T SH2, T42, LIP2, ACBC, CMPF #### Testing performed at [address] [address] ALP [Catalytic activity/Vol] 57 U/L Normal 38-126 [facility] Comment on above: Performed By: #### T SH2, T42, LIP2, ACBC, CMPF #### Testing performed at [address] [address] ALT [Catalytic activity/Vol] 15 U/L Normal 14-54 [facility] Comment on above: Performed By: #### T SH2, T42, LIP2, ACBC, CMPF #### Testing performed at [address] [address] AST [Catalytic activity/Vol] 23 U/L Normal 15-41 [facility] Comment on above: Performed By: #### T SH2, T42, LIP2, ACBC, CMPF #### Testing performed at [address] [address] Bilirubin [Mass/Vol] 0.6 mg/dL Normal 0.2-1.2 [facility] Comment on above: Performed By: #### T SH2, T42, LIP2, ACBC, CMPF #### Testing performed at [address] [address] Creatinine [Mass/Vol] 0.63 mg/dL Normal 0.52-1.04 [facility] Comment on above: Performed By: #### T SH2, T42, LIP2, ACBC, CMPF #### Testing performed at [address] [place] [address] EST. GFR, >60 Normal [facility] Comment on above: Performed By: #### T SH2, T42, LIP2, ACBC, CMPF #### Testing performed at [address] [address] EST. GFR,Non >60 Normal [facility] Comment on above: Performed By: #### T SH2, T42, LIP2, ACBC, CMPF #### Testing performed at [address] [address] GFR/1.73 sq M predicted among non-blacks MDRD (S/P/Bld) [Vol rate/Area] Average GFR for 70+ years old = 75. Normal [facility] Comment on above: Result Comment: [employer] [place] Kidney disease, GFR = <60. Kidney failure, GFR = <15. The GFR estimate is not adjusted for extreme body surface area or acute process, nor has it been validated for women or ethnic groups other than and . Performed By: #### T SH2, T42, LIP2, ACBC, CMPF #### Testing performed at [address] [address] Protein [Mass/Vol] 8.1 g/dL Normal 6.3-8.2 [facility] Comment on above: Performed By: #### T SH2, T42, LIP2, ACBC, CMPF #### Testing performed at [address] [address] Urea nitrogen [Mass/Vol] 16 mg/dL Normal 7-20 [facility] Comment on above: Performed By: #### T SH2, T42, LIP2, ACBC, CMPF #### Testing performed at [address] [address] Calcium [Mass/Vol] 9.7 mg/dL Normal 8.4-10.2 [facility] Comment on above: Performed By: #### T SH2, T42, LIP2, ACBC, CMPF #### Testing performed [address] [address] [address] Chloride [Moles/Vol] 94 mmol/L Low 98-107 [facility] Comment on above: Performed By: #### T SH2, T42, LIP2, ACBC, CMPF #### Testing performed at [address] [address] CO2 [Moles/Vol] 22 mmol/L Normal 22-30 [facility] Comment on above: Performed By: #### T SH2, T42, LIP2, ACBC, CMPF #### Testing performed at [address] [address] Glucose [Mass/Vol] 85 mg/dL Normal 70-100 [facility] Comment on above: Result Comment: NORMAL <100 mg/dL PREDIABETES 101-126 mg/dL DIABETES 126 mg/dL or higher Performed By: #### T SH2, T42, LIP2, ACBC, CMPF #### Testing performed at [address] [address] Potassium [Moles/Vol] 4.4 mmol/L Normal 3.5-5.1 [facility] Comment on above: Performed By: #### T SH2, T42, LIP2, ACBC, CMPF #### Testing performed at [address] [address] Sodium [Moles/Vol] 129 mmol/L Low 136-145 [facility] Comment on above: Performed By: #### T SH2, T42, LIP2, ACBC, CMPF #### Testing performed at [address] [address] FREE T4on 03-06-2019 Free T4 [Mass/Vol] 0.73 ng/dL Normal 0.61-1.12 [facility] Comment on above: Performed By: #### T SH2, T42, LIP2, ACBC, CMPF #### Testing performed at [address] [address] LIPID PROFILEon 03-06-2019 Cholesterol [Mass/Vol] 163 mg/dL Normal 100-199 [facility] Comment on above: Performed By: #### T SH2, T42, LIP2, ACBC, CMPF #### Testing performed at [address] [address] Cholesterol in HDL [Mass/Vol] 66 mg/dL High 40-60 [facility] Comment on above: Performed By: #### T SH2, T42, LIP2, ACBC, CMPF #### Testing performed at [address] [address] Cholesterol in LDL [Mass/Vol] 82 mg/dL Normal 0-100 [facility] Comment on above: Performed By: #### T SH2, T42, LIP2, ACBC, CMPF #### Testing performed at [address] [address] Cholesterol in VLDL [Mass/Vol] 15 mg/dL Normal 5.0-25.0 [facility] Comment on above: Performed By: #### T SH2, T42, LIP2, ACBC, CMPF #### Testing performed at [address] [address] Cholesterol.total/Charlene sterol in HDL [Mass ratio] 2.47 {ratio} Normal [facility] Comment on above: Result Comment: RISK TOTAL/HDL RATIO MEN WOMEN 1/2 AVERAGE 3.43 3.27 AVERAGE 4.97 4.44 2X AVERAGE 9.55 7.05 3X AVERAGE 23.99 11.04 Performed By: #### T SH2, T42, LIP2, ACBC, CMPF #### Testing performed at [address] [address] Triglyceride [Mass/Vol] 75 mg/dL Normal <150 [facility] Comment on above: Performed By: #### T SH2, T42, LIP2, ACBC, CMPF #### Testing performed at [address] [address] TSHon 03-06-2019 TSH Qn 5.153 uIU/ML Normal 0.45-5.33 [facility] Comment on above: Performed By: #### T SH2, T42, LIP2, ACBC, CMPF #### Testing performed at [address] [address] UPPER ENDOSCOPYon 12-22-2018 [facility] Gastroenterology Patient Name: Ben Arroyo Procedure Date: 12/22/2018 9:23 AM Date of : 1945 Admit Type: Outpatient Age: 73 Room: Procedure Room #1 Gender: Female Note Status: Finalized Attending MD: Dagoberto Gilbert DO Instrument Name: [id number] Procedure: Upper GI endoscopy Indications: Heartburn Providers: [...] lap cholecystectomy Procedure Code(s): --- Professional --- 01776, Esophagogastroduodenosc opy, flexible, transoral; diagnostic, including collection of specimen(s) by brushing or washing, when performed (separate procedure) Diagnosis Code(s): --- Professional --- K29.70, Gastritis, unspecified, without bleeding K44.9, Diaphragmatic hernia without obstruction or gangrene R12, Heartburn CPT copyright 2018 [employer]. All rights reserved. The codes documented in this report are preliminary and upon station cleaning porter review may be revised to meet current compliance requirements. DO Dagoberto Camacho DO 12/22/2018 9:53:44 AM This report has been signed electronically. Number of Addenda: 0 Note Initiated On: 12/22/2018 9:23 AM [facility] BONE DENSITY AXIAL (HIP, PEL VIS, SPINE)on 09-21-2018 IMPRESSION: Findings compatible with severe osteopenia with moderate to high increased fracture risk. [facility] EXAM: BONE DENSITY AXIAL (HIP, PELVIS, SPINE) CLINICAL DATA: postmenopausal COMPARISON: 04/21/2015. FINDINGS: Bone density study was performed. T score values for lumbar spine and both femoral necks were obtained. Value for the lumbar spine is -2.1, that for the left femoral neck is -2.0. Findings are compatible with severe osteopenia with moderate to high increased fracture risk. No evidence of osteoporosis. [facility] User, Interfaces - 09/21/2018 11:17 AM EDT [...] with moderate to high increased fracture risk. [facility] CBC and Differentialon 03-07 Basophils Auto #/vol (Bld) 0.0 10*3/uL Invalid Interpretation Code [facility] Basophils/100 WBC Auto (Bld) 0.5 % Invalid Interpretation Code [facility] Eosinophils Auto #/vol (Bld) 0.1 10*3/uL Invalid Interpretation Code [facility] Eosinophils/100 WBC Auto (Bld) 1.0 % Invalid Interpretation Code [facility] Erythrocyte distribution width Auto Ratio (RBC) 13.1 % Invalid Interpretation Code 10 - 14.4 % [facility] Hematocrit Auto Volume Fraction (Bld) 36.3 % Invalid Interpretation Code 34.4 - 44.8 % [facility] Hemoglobin mass conc (Bld) 12.4 g/dL Invalid Interpretation Code 11.6 - 15.4 g/dL [facility] Interpretation and review of laboratory results Abnormal Invalid Interpretation Code [facility] Lymphocytes Auto #/vol (Bld) 1.6 10*3/uL Invalid Interpretation Code [facility] Lymphocytes/100 WBC Auto (Bld) 16.2 % Invalid Interpretation Code [facility] MCH Auto Entitic mass (RBC) 29.5 pg Invalid Interpretation Code 27.9 - 33.9 pg [facility] MCHC Auto mass conc (RBC) 34.1 g/dL Invalid Interpretation Code 33.1 - 35.1 g/dL [facility] MCV Auto Entitic volume (RBC) 86.6 fL Invalid Interpretation Code [facility] Monocytes Auto #/vol (Bld) 1.3 10*3/uL High [facility] Monocytes/100 WBC Auto (Bld) 13.3 % Invalid Interpretation Code [facility] Neutrophils Auto #/vol (Bld) 6.7 10*3/uL Invalid Interpretation Code [facility] Platelet mean volume Auto Entitic volume (Bld) 8.9 fL Invalid Interpretation Code [facility] Platelets Auto #/vol (Bld) 298 10*3/uL Invalid Interpretation Code [facility] RBC Auto #/vol (Bld) 4.19 10*6/uL Invalid Interpretation Code [facility] Segmented Neut 69.0 % Invalid Interpretation Code [facility] WBC Auto #/vol (Bld) 9.7 10*3/uL Invalid Interpretation Code [facility] CBC with Diffon 03-07-2018 Basophils Auto #/vol (Bld) 0.0 K/mcL Normal 0-0.2 [facility] Comment on above: Performed By: #### C BCDIF, CMET, LIPID ####Unless otherwise noted, all testing performed by [place] [id number]: [id number] Director: Delano Chacon M.D. Basophils/100 WBC Auto (Bld) 0.5 % Normal [facility] Comment on above: Performed By: #### C BCDIF, CMET, LIPID ####Unless otherwise noted, all testing performed by [address] [phone]: [id number] Director: Delano Chacon M.D. Eosinophils Auto #/vol (Bld) 0.1 K/mcL Normal 0-0.5 [facility] Comment on above: Performed By: #### C BCDIF, CMET, LIPID ####Unless otherwise noted, all testing performed by [address] [phone]: [id number] Director: Delano Chacon M.D. Eosinophils/100 WBC Auto (Bld) 1.0 % Normal [facility] Comment on above: Performed By: #### C BCDIF, CMET, LIPID ####Unless otherwise noted, all testing performed by [address] [phone]: [id number] Director: Delano Chacon M.D. Erythrocyte distribution width Auto Ratio (RBC) 13.1 % Normal 10.0-14.4 [facility] Comment on above: Performed By: #### C BCDIF, CMET, LIPID ####Unless otherwise noted, all testing performed by [address] [phone]: [id number] Director: Delano Chacon M.D. Hematocrit Auto Volume Fraction (Bld) 36.3 % Normal 34.4-44.8 [facility] Comment on above: Performed By: #### C BCDIF, CMET, LIPID ####Unless otherwise noted, all testing performed by [address] [phone]: [id number] Director: Delano Chacon M.D. Hemoglobin mass conc (Bld) 12.4 g/dL Normal 11.6-15.4 [facility] Comment on above: Performed By: #### C BCDIF, CMET, LIPID ####Unless otherwise noted, all testing performed by [address] [phone]: [id number] Director: Delano Chacon M.D. Lymphocytes Auto #/vol (Bld) 1.6 K/mcL Normal 1.0-3.7 [facility] Comment on above: Performed By: #### C BCDIF, CMET, LIPID ####Unless otherwise noted, all testing performed by [address] [phone]: [id number] Director: Delano Chacon M.D. Lymphocytes/100 WBC Auto (Bld) 16.2 % Normal [facility] Comment on above: Performed By: #### C BCDIF, CMET, LIPID ####Unless otherwise noted, all testing performed by [address] [phone]: [id number] Director: Delano Chacon M.D. MCH Auto Entitic mass (RBC) 29.5 pg Normal 27.9-33.9 [facility] Comment on above: Performed By: #### C BCDIF, CMET, LIPID ####Unless otherwise noted, all testing performed by [address] [phone]: [id number] Director: Delano Chacon M.D. MCHC Auto mass conc (RBC) 34.1 g/dL Normal 33.1-35.1 [facility] Comment on above: Performed By: #### C BCDIF, CMET, LIPID ####Unless otherwise noted, all testing performed by [address] [phone]: [id number] Director: Delano Chacon M.D. MCV Auto Entitic volume (RBC) 86.6 fL Normal 82.6-98.9 [facility] Comment on above: Performed By: #### C BCDIF, CMET, LIPID ####Unless otherwise noted, all testing performed by [address] [phone]: [id number] Director: Delano Chacon M.D. Monocytes Auto #/vol (Bld) 1.3 K/mcL High 0.1-0.6 [facility] Comment on above: Performed By: #### C BCDIF, CMET, LIPID ####Unless otherwise noted, all testing performed by [address] [phone]: [id number] Director: Delano Chacon M.D. Monocytes/100 WBC Auto (Bld) 13.3 % Normal [facility] Comment on above: Performed By: #### C BCDIF, CMET, LIPID ####Unless otherwise noted, all testing performed by [address] [phone]: [id number] Director: Delano Chacon M.D. Neutrophils Auto #/vol (Bld) 6.7 K/mcL Normal 1.2-6.9 [facility] Comment on above: Performed By: #### C BCDIF, CMET, LIPID ####Unless otherwise noted, all testing performed by [place] [phone]: [id number] Director: Delano Chacon M.D. Platelet mean volume Auto Entitic volume (Bld) 8.9 fL Normal 7.0-10.6 [facility] Comment on above: Performed By: #### C BCDIF, CMET, LIPID ####Unless otherwise noted, all testing performed by [address] [phone]: [id number] Director: Delano Chacon M.D. Platelets Auto #/vol (Bld) 298 K/mcL Normal 162-402 [facility] Comment on above: Performed By: #### C BCDIF, CMET, LIPID ####Unless otherwise noted, all testing performed by [address] [phone]: [id number] Director: Delano Chacon M.D. RBC Auto #/vol (Bld) 4.19 M/mcL Normal 3.7-5.0 [facility] Comment on above: Performed By: #### C BCDIF, CMET, LIPID ####Unless otherwise noted, all testing performed by [address] [phone]: [id number] Director: Delano Chacon M.D. Segmented Neut % 69.0 % Normal [facility] [place] Comment on above: Performed By: #### C BCDIF, CMET, LIPID ####Unless otherwise noted, all testing performed by [address] [phone]: [id number] Director: Delano Chacon M.D. WBC Auto #/vol (Bld) 9.7 K/mcL Normal 3.4-10.6 [facility] Comment on above: Performed By: #### C BCDIF, CMET, LIPID ####Unless otherwise noted, all testing performed by [address] [phone]: [id number] Director: Delano Chacon M.D. Comprehensive Metabolic Pane [facility] 03-07-2018 Albumin mass conc 3.9 g/dL Invalid Interpretation Code 3.2 - 5.2 g/dL [facility] ALP enzyme act/vol 62 U/L Invalid Interpretation Code 40 - 150 U/L [facility] ALT enzyme act/vol 30 U/L Invalid Interpretation Code 14 - 65 U/L [facility] Comment on above: This test result windy ht be falsely depressed or falsely elevated on samples drawn from patients taking Sulfasalazine and Sulfapyridine. Venipuncture should occur prior to taking either of these drugs. AST enzyme act/vol 38 U/L Invalid Interpretation Code 0 - 45 U/L [facility] Comment on above: This test result windy ht be falsely depressed or falsely elevated on samples drawn from patients taking Sulfasalazine and Sulfapyridine. Venipuncture should occur prior to taking either of these drugs. Bilirubin mass conc 0.6 mg/dL Invalid Interpretation Code 0.3 - 1.2 mg/dL [facility] Calcium mass conc 8.9 mg/dL Invalid Interpretation Code 8.4 - 10.2 mg/dL [facility] Chloride molar conc 93 mmol/L Low 98 - 108 mmol/L [facility] CO2 molar conc 21 mmol/L Invalid Interpretation Code 21 - 32 mmol/L [facility] Creatinine mass conc 0.78 mg/dL Invalid Interpretation Code 0.6 - 1.2 mg/dL [facility] GFR/1.73 sq M predicted among blacks MDRD vol rate/area (S/P/Bld) mL/min/{1.73_m2} Invalid Interpretation Code ml/min/1.73 sq.m [facility] Comment on above: GFR Calc GFR/1.73 sq M predicted among non-blacks MDRD vol rate/area (S/P/Bld) mL/min/{1.73_m2} Invalid Interpretation Code ml/min/1.73 sq.m [facility] Comment on above: Non- GFR Calc eGFR [...] Invalid Interpretation Code 70 - 99 mg/dL [facility] Comment on above: This test result windy ht be falsely depressed or falsely elevated on samples drawn from patients taking Sulfasalazine and Sulfapyridine. Venipuncture should occur prior to taking either of these drugs. Potassium molar conc 4.9 mmol/L Invalid Interpretation Code 3.5 - 5.1 mmol/L [facility] Protein mass conc 7.9 g/dL Invalid Interpretation Code 6 - 8 g/dL [facility] Sodium molar conc 126 mmol/L Low 135 - 145 mmol/L [facility] Urea nitrogen mass conc 17 mg/dL Invalid Interpretation Code 8 - 25 mg/dL [facility] Albumin mass conc 3.9 g/dL Normal 3.2-5.2 [facility] Comment on above: Performed By: #### C BCDIF, CMET, LIPID ####Unless otherwise noted, all testing performed by [address] [phone]: [id number] Director: Delano Chacon M.D. ALP enzyme act/vol 62 U/L Normal 40-150 [facility] Comment on above: Performed By: #### C BCDIF, CMET, LIPID ####Unless otherwise noted, all testing performed by [address] [phone]: [id number] Director: Delano Chacon M.D. ALT enzyme act/vol 30 U/L Normal 14-65 [facility] Comment on above: Result Comment: This test result might be falsely depressed or falsely elevated onsamples drawn from patients taking Sulfasalazine and Sulfapyridine.Venipuncture should occur prior to taking either of these drugs. Performed By: #### C BCDIF, CMET, LIPID ####Unless otherwise noted, all testing performed by [address] [phone]: [id number] Director: Delano Chacon M.D. AST enzyme act/vol 38 U/L Normal 0-45 [facility] Comment on above: Result Comment: This test result might be falsely depressed or falsely elevated onsamples drawn from patients taking Sulfasalazine and Sulfapyridine.Venipuncture should occur prior to taking either of these drugs. Performed By: #### C BCDIF, CMET, LIPID ####Unless otherwise noted, all testing performed by [address] [phone]: [id number] Director: Delano Chacon M.D. Bilirubin mass conc 0.6 mg/dL Normal 0.3-1.2 [facility] Comment on above: Performed By: #### C BCDIF, CMET, LIPID ####Unless otherwise noted, all testing performed by [address] [phone]: [id number] Director: Delano Chacon M.D. Calcium mass conc 8.9 mg/dL Normal 8.4-10.2 [facility] Comment on above: Performed By: #### C BCDIF, CMET, LIPID ####Unless otherwise noted, all testing performed by [address] [phone]: [id number] Director: Delano Chacon M.D. Chloride molar conc 93 mmol/L Low 98-108 [facility] Comment on above: Performed By: #### C BCDIF, CMET, LIPID ####Unless otherwise noted, all testing performed by [address] [phone]: [id number] Director: Delano Chacon M.D. CO2 molar conc 21 mmol/L Normal 21-32 [facility] Comment on above: Performed By: #### C BCDIF, CMET, LIPID ####Unless otherwise noted, all testing performed by [address], [place] [phone]: [id number] Director: Delano Chacon M.D. Creatinine mass conc 0.78 mg/dL Normal 0.60-1.20 [facility] Comment on above: Performed By: #### C BCDIF, CMET, LIPID ####Unless otherwise noted, all testing performed by [address] [phone]: [id number] Director: Delano Chacon M.D. GFR/1.73 sq M predicted among blacks MDRD vol rate/area (S/P/Bld) mL/min/{1.73_m2} Normal [facility] Comment on above: Result Comment: Afri can [place] GFR Calc Performed By: #### C BCDIF, CMET, LIPID ####Unless otherwise noted, all testing performed by [address] [phone]: [id number] Director: Delano Chacon M.D. GFR/1.73 sq M predicted among non-blacks MDRD vol rate/area (S/P/Bld) mL/min/{1.73_m2} Normal [facility] Comment on above: Result Comment: [...] ####Unless otherwise noted, all testing performed by [address] [phone]: [id number] Director: Delano Chacon M.D. Glucose mass conc 84 mg/dL Normal 70-99 [facility] Comment on above: Result Comment: This test result might be falsely depressed or falsely elevated onsamples drawn from patients taking Sulfasalazine and Sulfapyridine.Venipuncture should occur prior to taking either of these drugs. Performed By: #### C BCDIF, CMET, LIPID ####Unless otherwise noted, all testing performed by [address] [phone]: [id number] Director: Delano Chacon M.D. Potassium molar conc 4.9 mmol/L Normal 3.5-5.1 [facility] Comment on above: Performed By: #### C BCDIF, CMET, LIPID ####Unless otherwise noted, all testing performed by [address] [phone]: [id number] Director: Delano Chacon M.D. Protein mass conc 7.9 g/dL Normal 6.0-8.0 [facility] Comment on above: Performed By: #### C BCDIF, CMET, LIPID ####Unless otherwise noted, all testing performed by [address] [phone]: [id number] Director: Delano Chacon M.D. Sodium molar conc 126 mmol/L Low 135-145 [facility] Comment on above: Performed By: #### C BCDIF, CMET, LIPID ####Unless otherwise noted, all testing performed by [place] [phone]: [id number] Director: Delano Chacon M.D. Urea nitrogen mass conc 17 mg/dL Normal 8-25 [facility] Comment on above: Performed By: #### C BCDIF, CMET, LIPID ####Unless otherwise noted, all testing performed by [address], [place] [phone]: [id number] Director: Delano Chacon M.D. Lipid Panelon 03-07-2018 Cholesterol in HDL mass conc 73 mg/dL High 40 - 59 mg/dL [facility] Cholesterol in LDL mass conc 65 mg/dL Invalid Interpretation Code 10 - 150 mg/dL [facility] Cholesterol in VLDL mass conc 19 mg/dL Invalid Interpretation Code 5 - 40 mg/dL [facility] Cholesterol mass conc 157 mg/dL Invalid Interpretation Code 100 - 199 mg/dL [facility] Cholesterol.total/Charlene sterol in HDL mass ratio 2.2 {ratio} Low [facility] Comment on above: Female Coronary Hear t Disease Risk Factor (CHDRF): Average risk= 4.4 1/2 Average risk= 3.3 2 times Average risk= 7.1 Triglyceride mass conc 95 mg/dL Invalid Interpretation Code 25 - 120 mg/dL [facility] Cholesterol in HDL mass conc 73 mg/dL High 40-59 [facility] Comment on above: Performed By: #### C BCDIF, CMET, LIPID ####Unless otherwise noted, all testing performed by [address], [place] [phone]: [id number] Director: Delano Chacon M.D. Cholesterol in LDL mass conc 65 mg/dL Normal 10-150 [facility] Comment on above: Performed By: #### C BCDIF, CMET, LIPID ####Unless otherwise noted, all testing performed by [address], [place] [phone]: [id number] Director: Delano Chacon M.D. Cholesterol in VLDL mass conc 19 mg/dL Normal 5-40 [facility] Comment on above: Performed By: #### C BCDIF, CMET, LIPID ####Unless otherwise noted, all testing performed by [address] [phone]: [id number] Director: Delano Chacon M.D. Cholesterol mass conc 157 mg/dL Normal 100-199 [facility] Comment on above: Performed By: #### C BCDIF, CMET, LIPID ####Unless otherwise noted, all testing performed by [address] [phone]: [id number] Director: Delano Chacon M.D. Cholesterol.total/Charlene sterol in HDL mass ratio 2.2 {ratio} Low 3.2-5.0 [facility] Comment on above: Result Comment: Danae crespo Coronary Heart Disease Risk Factor (CHDRF):Average risk= 4.41/2 Average risk= 3.32 times Average risk= 7.1 Performed By: #### C BCDIF, CMET, LIPID ####Unless otherwise noted, all testing performed by [address] [phone]: [id number] Director: Delano Chacon M.D. Triglyceride mass conc 95 mg/dL Normal 25-120 [facility] Comment on above: Performed By: #### C BCDIF, CMET, LIPID ####Unless otherwise noted, all testing performed by [address] [phone]: [id number] Director: Delano Chacon M.D. Otheron 03-07-2018 Interpretation and review of laboratory results Abnormal Invalid Interpretation Code [facility] ALT (SGPT)on 09-13-2017 ALT enzyme act/vol 27 U/L Normal 14-65 [facility] Comment on above: Result Comment: This test result might be falsely depressed or falsely elevated onsamples drawn from patients taking Sulfasalazine and Sulfapyridine.Venipuncture should occur prior to taking either of these drugs. Performed By: #### A LT, AST, FT4, TSH, LIPID ####Unless otherwise noted, all testing performed by [place] [phone]: [id number] Director: Delano Chacon M.D. AST (SGOT)on 09-13-2017 AST enzyme act/vol 28 U/L Normal 0-45 [facility] Comment on above: Result Comment: This test result might be falsely depressed or falsely elevated onsamples drawn from patients taking Sulfasalazine and Sulfapyridine.Venipuncture should occur prior to taking either of these drugs. Performed By: #### A LT, AST, FT4, TSH, LIPID ####Unless otherwise noted, all testing performed by [address] [phone]: [id number] Director: Delano Chacon M.D. Lipid Panelon 09-13-2017 Cholesterol in HDL mass conc 73 mg/dL High 40-59 [facility] Comment on above: Performed By: #### A LT, AST, FT4, TSH, LIPID ####Unless otherwise noted, all testing performed by [address] [phone]: [id number] Director: Delano Chacon M.D. Cholesterol in LDL mass conc 58 mg/dL Normal 10-150 [facility] Comment on above: Performed By: #### A LT, AST, FT4, TSH, LIPID ####Unless otherwise noted, all testing performed by [address] [id number]: [id number] Director: Delano Chacon M.D. Cholesterol in VLDL mass conc 13 mg/dL Normal 5-40 [facility] Comment on above: Performed By: #### A LT, AST, FT4, TSH, LIPID ####Unless otherwise noted, all testing performed by [address] [id number]: [id number] Director: Delano Chacon M.D. Cholesterol mass conc 144 mg/dL Normal 100-199 [facility] Comment on above: Performed By: #### A LT, AST, FT4, TSH, LIPID ####Unless otherwise noted, all testing performed by [address] [phone]: [id number] Director: Delano Chacon M.D. Cholesterol.total/Charlene sterol in HDL mass ratio 2.0 {ratio} Low 3.2-5.0 [facility] Comment on above: Result Comment: Emilianoa le Coronary Heart Disease Risk Factor (CHDRF):Average risk= 4.41/2 Average risk= 3.32 times Average risk= 7.1 Performed By: #### A LT, AST, FT4, TSH, LIPID ####Unless otherwise noted, all testing performed by [address] [id number]: [id number] Director: Delano Chacon M.D. Triglyceride mass conc 64 mg/dL Normal 25-120 [facility] Comment on above: Performed By: #### A LT, AST, FT4, TSH, LIPID ####Unless otherwise noted, all testing performed by [address] [id number]: [id number] Director: Delano Chacon M.D. T4, Freeon 09-13-2017 T4 free mass conc 1.0 ng/dL Normal 0.7-1.7 [facility] Comment on above: Result Comment: Samp les from patients routinely receiving high dose biotin therapy(100-300 mg/day) may show falsely decreased results. Please correlateclinically. Performed By: #### A LT, AST, FT4, TSH, LIPID ####Unless otherwise noted, all testing performed by [address] [phone]: [id number] Director: Delano Chacon M.D. TSHon 09-13-2017 Thyrotropin Qn 5.67 uIU/mL High 0.320-5.000 [facility] [place] Comment on above: Result Comment: Samp les from patients routinely receiving high dose biotin therapy(100-300 mg/day) may show falsely decreased results. Please correlateclinically. Performed By: #### A LT, AST, FT4, TSH, LIPID ####Unless otherwise noted, all testing performed by [address] [id number]: [id number] Director: Delano Chacon M.D. CBC with Diffon 03-21-2017 Basophils Auto #/vol (Bld) 0.0 K/mcL Normal 0-0.2 [facility] Comment on above: Performed By: #### C BCDIF, CMET, LIPID ####Unless otherwise noted, all testing performed by [address] [id number]: [id number] Director: Delano Chacon M.D. Basophils/100 WBC Auto (Bld) 0.6 % Normal [facility] Comment on above: Performed By: #### C BCDIF, CMET, LIPID ####Unless otherwise noted, all testing performed by [address] [phone]: [id number] Director: Delano Chacon M.D. Eosinophils Auto #/vol (Bld) 0.0 K/mcL Normal 0-0.5 [facility] Comment on above: Performed By: #### C BCDIF, CMET, LIPID ####Unless otherwise noted, all testing performed by [address] [phone]: [id number] Director: Delano Chacon M.D. Eosinophils/100 WBC Auto (Bld) 0.6 % Normal [facility] Comment on above: Performed By: #### C BCDIF, CMET, LIPID ####Unless otherwise noted, all testing performed by [address] [phone]: [id number] Director: Delano Chacon M.D. Erythrocyte distribution width Auto Ratio (RBC) 13.6 % Normal 10.0-14.4 [facility] Comment on above: Performed By: #### C BCDIF, CMET, LIPID ####Unless otherwise noted, all testing performed by [address] [phone]: [id number] Director: Delano Chacon M.D. Hematocrit Auto Volume Fraction (Bld) 37.4 % Normal 34.4-44.8 [facility] Comment on above: Performed By: #### C BCDIF, CMET, LIPID ####Unless otherwise noted, all testing performed by [address] [phone]: [id number] Director: Delano Chacon M.D. Hemoglobin mass conc (Bld) 12.5 g/dL Normal 11.6-15.4 [facility] Comment on above: Performed By: #### C BCDIF, CMET, LIPID ####Unless otherwise noted, all testing performed by [address] [phone]: [id number] Director: Delano Chacon M.D. Lymphocytes Auto #/vol (Bld) 1.3 K/mcL Normal 1.0-3.7 [facility] Comment on above: Performed By: #### C BCDIF, CMET, LIPID ####Unless otherwise noted, all testing performed by [address] [phone]: [id number] Director: Delano Chacon M.D. Lymphocytes/100 WBC Auto (Bld) 16.5 % Normal [facility] Comment on above: Performed By: #### C BCDIF, CMET, LIPID ####Unless otherwise noted, all testing performed by [address] [phone]: [id number] Director: Delano Chacon M.D. MCH Auto Entitic mass (RBC) 29.7 pg Normal 27.9-33.9 [facility] Comment on above: Performed By: #### C BCDIF, CMET, LIPID ####Unless otherwise noted, all testing performed by [address] [phone]: [id number] Director: Delano Chacon M.D. MCHC Auto mass conc (RBC) 33.3 g/dL Normal 33.1-35.1 [facility] Comment on above: Performed By: #### C BCDIF, CMET, LIPID ####Unless otherwise noted, all testing performed by [address] [id number]: [id number] Director: Delano Chacon M.D. MCV Auto Entitic volume (RBC) 89.0 fL Normal 82.6-98.9 [facility] Comment on above: Performed By: #### C BCDIF, CMET, LIPID ####Unless otherwise noted, all testing performed by [place] [phone]: [id number] Director: Delano Chacon M.D. Monocytes Auto #/vol (Bld) 0.9 K/mcL High 0.1-0.6 [facility] Comment on above: Performed By: #### C BCDIF, CMET, LIPID ####Unless otherwise noted, all testing performed by [address] [phone]: [id number] Director: Delano Chacon M.D. Monocytes/100 WBC Auto (Bld) 11.7 % Normal [facility] Comment on above: Performed By: #### C BCDIF, CMET, LIPID ####Unless otherwise noted, all testing performed by [address] [phone]: [id number] Director: Delano Chacon M.D. Neutrophils Auto #/vol (Bld) 5.7 K/mcL Normal 1.2-6.9 [facility] Comment on above: Performed By: #### C BCDIF, CMET, LIPID ####Unless otherwise noted, all testing performed by [address] [phone]: [id number] Director: Delano Chacon M.D. Platelet mean volume Auto Entitic volume (Bld) 8.9 fL Normal 7.0-10.6 [facility] Comment on above: Performed By: #### C BCDIF, CMET, LIPID ####Unless otherwise noted, all testing performed by [address] [phone]: [id number] Director: Delano Chacon M.D. Platelets Auto #/vol (Bld) 234 K/mcL Normal 162-402 [facility] Comment on above: Performed By: #### C BCDIF, CMET, LIPID ####Unless otherwise noted, all testing performed by [address] [phone]: [id number] Director: Delano Chacon M.D. RBC Auto #/vol (Bld) 4.20 M/mcL Normal 3.7-5.0 [facility] Comment on above: Performed By: #### C BCDIF, CMET, LIPID ####Unless otherwise noted, all testing performed by [facility] [address] [phone]: [id number] Director: Delano Chacon M.D. Segmented Neut % 70.6 % Normal [facility] [place] Comment on above: Performed By: #### C BCDIF, CMET, LIPID ####Unless otherwise noted, all testing performed by [address] [phone]: [id number] Director: Delano Chacon M.D. WBC Auto #/vol (Bld) 8.1 K/mcL Normal 3.4-10.6 [facility] Comment on above: Performed By: #### C BCDIF, CMET, LIPID ####Unless otherwise noted, all testing performed by [address] [phone]: [id number] Director: Delano Chacon M.D. [facility]-2017 Albumin mass conc 3.6 g/dL Normal 3.2-5.2 [facility] Comment on above: Performed By: #### C BCDIF, CMET, LIPID ####Unless otherwise noted, all testing performed by [address] [id number]: [id number] Director: Delano Chacon M.D. ALP enzyme act/vol 63 U/L Normal 40-150 [facility] Comment on above: Performed By: #### C BCDIF, CMET, LIPID ####Unless otherwise noted, all testing performed by [address] [phone]: [id number] Director: Delano Chacon M.D. ALT enzyme act/vol 30 U/L Normal 14-65 [facility] Comment on above: Result Comment: This test result might be falsely depressed or falsely elevated onsamples drawn from patients taking Sulfasalazine and Sulfapyridine.Venipuncture should occur prior to taking either of these drugs. Performed By: #### C BCDIF, CMET, LIPID ####Unless otherwise noted, all testing performed by [address] [id number]: [id number] Director: Delano Chacon M.D. AST enzyme act/vol 32 U/L Normal 0-45 [facility] Comment on above: Result Comment: This test result might be falsely depressed or falsely elevated onsamples drawn from patients taking Sulfasalazine and Sulfapyridine.Venipuncture should occur prior to taking either of these drugs. Performed By: #### C BCDIF, CMET, LIPID ####Unless otherwise noted, all testing performed by [address] [phone]: [id number] Director: Delano Chacon M.D. Bilirubin mass conc 0.6 mg/dL Normal 0.3-1.2 [facility] Comment on above: Performed By: #### C BCDIF, CMET, LIPID ####Unless otherwise noted, all testing performed by [address] [phone]: [id number] Director: Delano Chacon M.D. Calcium mass conc 8.6 mg/dL Normal 8.4-10.2 [facility] Comment on above: Performed By: #### C BCDIF, CMET, LIPID ####Unless otherwise noted, all testing performed by [address] [phone]: [id number] Director: Delano Chacon M.D. Chloride molar conc 95 mmol/L Low 98-108 [facility] Comment on above: Performed By: #### C BCDIF, CMET, LIPID ####Unless otherwise noted, all testing performed by [address] [id number]: [id number] Director: Delano Chacon M.D. CO2 molar conc 25 mmol/L Normal 21-32 [facility] Comment on above: Performed By: #### C BCDIF, CMET, LIPID ####Unless otherwise noted, all testing performed by [address] [id number]: [id number] Director: Delano Chacon M.D. Creatinine mass conc 0.86 mg/dL Normal 0.60-1.20 [facility] Comment on above: Performed By: #### C BCDIF, CMET, LIPID ####Unless otherwise noted, all testing performed by [address] [phone]: [id number] Director: Delano Chacon M.D. GFR/1.73 sq M predicted among blacks MDRD vol rate/area (S/P/Bld) mL/min/{1.73_m2} Normal [facility] Comment on above: Result Comment: Afri can [place]ib[place] GFR Calc Performed By: #### C BCDIF, CMET, LIPID ####Unless otherwise noted, all testing performed by [address] [phone]: [id number] Director: Delano Chacon M.D. GFR/1.73 sq M predicted among non-blacks MDRD vol rate/area (S/P/Bld) mL/min/{1.73_m2} Normal [facility] Comment on above: Result Comment: [...] ####Unless otherwise noted, all testing performed by [address] [id number]: [id number] Director: Delano Chacon M.D. Glucose mass conc 85 mg/dL Normal 70-99 [facility] Comment on above: Result Comment: This test result might be falsely depressed or falsely elevated onsamples drawn from patients taking Sulfasalazine and Sulfapyridine.Venipuncture should occur prior to taking either of these drugs. Performed By: #### C BCDIF, CMET, LIPID ####Unless otherwise noted, all testing performed by [address], [place] [id number]: [id number] Director: Delano Chacon M.D. Potassium molar conc 4.4 mmol/L Normal 3.5-5.1 [facility] Comment on above: Performed By: #### C BCDIF, CMET, LIPID ####Unless otherwise noted, all testing performed by [address] [phone]: [id number] Director: Delano Chacon M.D. Protein mass conc 7.4 g/dL Normal 6.0-8.0 [facility] Comment on above: Performed By: #### C BCDIF, CMET, LIPID ####Unless otherwise noted, all testing performed by [place] [phone]: [id number] Director: Delano Chacon M.D. Sodium molar conc 130 mmol/L Low 135-145 [facility] Comment on above: Performed By: #### C BCDIF, CMET, LIPID ####Unless otherwise noted, all testing performed by [place] [phone]: [id number] Director: Delano Chacon M.D. Urea nitrogen mass conc 16 mg/dL Normal 8-25 [facility] Comment on above: Performed By: #### C BCDIF, CMET, LIPID ####Unless otherwise noted, all testing performed by [place] [phone]: [id number] Director: Delano Chacon M.D. Lipid Panelon 03-21-2017 Cholesterol in HDL mass conc 72 mg/dL High 40-59 [facility] Comment on above: Performed By: #### C BCDIF, CMET, LIPID ####Unless otherwise noted, all testing performed by [place] [id number]: [id number] Director: Delano Chacon M.D. Cholesterol in LDL mass conc 43 mg/dL Normal 10-150 [facility] Comment on above: Performed By: #### C BCDIF, CMET, LIPID ####Unless otherwise noted, all testing performed by [address] [id number]: [id number] Director: Delano Chacon M.D. Cholesterol in VLDL mass conc 17 mg/dL Normal 5-40 [facility] Comment on above: Performed By: #### C BCDIF, CMET, LIPID ####Unless otherwise noted, all testing performed by [address] [phone]: [id number] Director: Delano Chacon M.D. Cholesterol mass conc 131 mg/dL Normal 100-199 [facility] Comment on above: Performed By: #### C BCDIF, CMET, LIPID ####Unless otherwise noted, all testing performed by [address] [id number]: [id number] Director: Delano Chacon M.D. Cholesterol.total/Charlene sterol in HDL mass ratio 1.8 {ratio} Low 3.2-5.0 [facility] Comment on above: Result Comment: Emilianoa cherie Coronary Heart Disease Risk Factor (CHDRF):Average risk= 4.41/2 Average risk= 3.32 times Average risk= 7.1 Performed By: #### C BCDIF, CMET, LIPID ####Unless otherwise noted, all testing performed by [address] [phone]: [id number] Director: Delano Chacon M.D. Triglyceride mass conc 84 mg/dL Normal 25-120 [facility] Comment on above: Performed By: #### C BCDIF, CMET, LIPID ####Unless otherwise noted, all testing performed by [place] [address] [place], [place] [id number]: [id number] Director: Delano Chacon M.D. Vital Signs Date Time Vital Sign Value Performing Clinician Facility 02-18-2025 13:00-0400 Body height 149.9 cm Yessica Greene MD Work Phone: [facility] 02-18-2025 13:00-0400 Body mass index (BMI) [Ratio] 19.19 kg/m2 Yessica Greene MD Work Phone: [facility] 02-18-2025 13:00-0400 Body weight 43.09 kg Yessica Greene MD Work Phone: [facility] 02-18-2025 13:00-0400 Diastolic blood pressure 60 mm[Hg] Yessica Greene MD Work Phone: [facility] 02-18-2025 13:00-0400 Heart rate 63 /min Yessica Greene MD Work Phone: [facility] 02-18-2025 13:00-0400 Respiratory rate 12 /min Yessica Greene MD Work Phone: [facility] 02-18-2025 13:00-0400 SaO2% (BldA) [Mass fraction] 100 % Yessica Greene MD Work Phone: [facility] 02-18-2025 13:00-0400 Systolic blood pressure 126 mm[Hg] Yessica Greene MD Work Phone: [facility] 01-21-2025 08:17-0400 Body height 151.[address] Adela Harley MD Work Phone: [facility] 01-21-2025 08:17-0400 Body weight 43.[address] Adela Harley MD Work Phone: [facility] 01-09-2025 11:01-0400 Body height 151.[address] Adela Harley MD Work Phone: [facility] 01-09-2025 11:01-0400 Body mass index (BMI) [Ratio] 18.6 kg/m2 Dr. Adela Harley MD Work Phone: [facility] 01-09-2025 11:01-0400 Body weight 42.[address] Adela Harley MD Work Phone: [phone])[phone] [place] [address] 01-09-2025 11:01-0400 Diastolic blood pressure 74 mm[Hg] Dr. Adela Harley MD Work Phone: [phone](069)370-895287 [place] [address] 01-09-2025 11:01-0400 Heart rate 51 /min Dr. Adela Harley MD Work Phone: 7(498)154-357837 [place] [address] 01-09-2025 11:01-0400 Respiratory rate 18 /min Dr. Adela Harley MD Work Phone: [facility] 01-09-2025 11:01-0400 SaO2% (BldA) [Mass fraction] 97 % Dr. Adela Harley MD Work Phone: [facility] 01-09-2025 11:01-0400 Systolic blood pressure 128 mm[Hg] Dr. Adela Harley MD Work Phone: [facility] 12-24-2024 15:15-0400 Body mass index (BMI) [Ratio] 18.8 kg/m2 Dr. Adela Harley MD Work Phone: [facility] 12-24-2024 14:28-0400 Diastolic blood pressure 60 mm[Hg] Dr. Adela Harley MD Work Phone: [facility] 12-24-2024 14:28-0400 Heart rate 58 /min Dr. Adela Harley MD Work Phone: [facility] 12-24-2024 14:28-0400 SaO2% (BldA) [Mass fraction] 99 % Dr. Adela Harley MD Work Phone: [facility] 12-24-2024 14:28-0400 Systolic blood pressure 140 mm[Hg] Dr. Adela Harley MD Work Phone: [facility] 12-24-2024 14:18-0400 Body height 151.[address] Adela Harley MD Work Phone: [facility] 12-24-2024 14:18-0400 Body weight 43.[address] Adela Harley MD Work Phone: [facility] 12-14-2024 08:46-0400 Body temperature 97.6 [degF] Dr. Adela Harley MD Work Phone: [facility] 12-14-2024 08:46-0400 Diastolic blood pressure 66 mm[Hg] Dr. Adela Harley MD Work Phone: [facility] 12-14-2024 08:46-0400 Heart rate 74 /min Dr. Adela Harley MD Work Phone: [facility] 12-14-2024 08:46-0400 Respiratory rate 16 /min Dr. Adela Harley MD Work Phone: [facility] 12-14-2024 08:46-0400 SaO2% (BldA) [Mass fraction] 97 % Dr. Adela Harley MD Work Phone: [facility] 12-14-2024 08:46-0400 Systolic blood pressure 136 mm[Hg] Dr. Adela Harley MD Work Phone: [facility] 12-13-2024 13:00-0400 Body temperature 97.9 [degF] Dr. Adela Harley MD Work Phone: [facility] 12-13-2024 13:00-0400 Diastolic blood pressure 72 mm[Hg] Dr. Adela Harley MD Work Phone: [facility] 12-13-2024 13:00-0400 Heart rate 63 /min Dr. Adela Harley MD Work Phone: [facility] 12-13-2024 13:00-0400 Respiratory rate 15 /min Dr. Adela Harley MD Work Phone: [facility] 12-13-2024 13:00-0400 SaO2% (BldA) [Mass fraction] 99 % Dr. Adela Harley MD Work Phone: [phone] [place] [address] 12-13-2024 13:00-0400 Systolic blood pressure 144 mm[Hg] Dr. Adela Harley MD Work Phone: [facility] 12-12-2024 19:29-0400 Inhaled oxygen flow rate 2 L/min Dr. Adela Harley MD Work Phone: 4([phone])069-647987 [place] [address] 12-12-2024 14:00-0400 Diastolic blood pressure 84 mm[Hg] Dr. Adela Harley MD Work Phone: [facility] 12-12-2024 14:00-0400 Heart rate 58 /min Dr. Adela Harley MD Work Phone: [facility] 12-12-2024 14:00-0400 Respiratory rate 16 /min Dr. Adela Harley MD Work Phone: [facility] 12-12-2024 14:00-0400 SaO2% (BldA) [Mass fraction] 100 % Dr. Adela Harley MD Work Phone: [facility] 12-12-2024 14:00-0400 Systolic blood pressure 174 mm[Hg] Dr. Adela Harley MD Work Phone: [facility] 12-12-2024 03:20-0400 Body height 151.[address] Adela Harley MD Work Phone: [facility] 12-12-2024 03:20-0400 Body mass index (BMI) [Ratio] 18.4 kg/m2 Dr. Adela Harley MD Work Phone: [facility] 12-12-2024 03:20-0400 Body weight 42.[address] Adela Harley MD Work Phone: [facility] 12-12-2024 01:06-0400 Body temperature 98.5 [degF] Dr. Adela Harley MD Work Phone: [facility] 12-11-2024 19:30-0400 Body mass index (BMI) [Ratio] 19.1 kg/m2 Dr. Adela Harley MD Work Phone: [facility] 12-11-2024 19:30-0400 Body weight 44.[address] Adela Harley MD Work Phone: [facility] 12-11-2024 18:34-0400 Body height 152.[address] Adela Harley MD Work Phone: [facility] 06-25-2024 14:15-0500 Body mass index (BMI) [Ratio] 19.51 kg/m2 Yessica Greene MD Work Phone: [facility] 06-25-2024 14:15-0500 Body weight 43.82 kg Yessica Greene MD Work Phone: [facility] 06-25-2024 14:15-0500 Diastolic blood pressure 84 mm[Hg] Yessica Greene MD Work Phone: [facility] 06-25-2024 14:15-0500 Heart rate 62 /min Yessica Greene MD Work Phone: [facility] 06-25-2024 14:15-0500 SaO2% (BldA) [Mass fraction] 99 % Yessica Greene MD Work Phone: [facility] 06-25-2024 14:15-0500 Systolic blood pressure 170 mm[Hg] Yessica Greene MD Work Phone: [facility] 09-07-2023 10:16-0500 Body temperature 97.9 [degF] [facility] 09-07-2023 10:16-0500 Diastolic blood pressure 82 mm[Hg] [facility] 09-07-2023 10:16-0500 Heart rate 72 /min [facility] 09-07-2023 10:16-0500 Respiratory rate 16 /min [facility] 09-07-2023 10:16-0500 SaO2% (BldA) [Mass fraction] 99 % [facility] 09-07-2023 10:16-0500 Systolic blood pressure 188 mm[Hg] [facility] 09-07-2023 08:10-0500 Body height 152.4 cm [facility] 09-07-2023 08:10-0500 Body mass index (BMI) [Ratio] 18.8 kg/m2 [facility] 09-07-2023 08:10-0500 Body weight 43.74 kg [facility] 01-23-2023 19:11-0400 Diastolic blood pressure 70 mm[Hg] Dr. Adela Harley Work Phone: [facility] 01-23-2023 19:11-0400 Heart rate 63 /min Dr. Adela Harley Work Phone: [facility] 01-23-2023 19:11-0400 Respiratory rate 14 /min Dr. Adela Harley Work Phone: [facility] 01-23-2023 19:11-0400 SaO2% (BldA) [Mass fraction] 100 % Dr. Adela Harley Work Phone: [facility] 01-23-2023 19:11-0400 Systolic blood pressure 163 mm[Hg] Dr. Adela Harley Work Phone: [facility] 01-23-2023 18:03-0400 Body height 149.[address] Adela Harley Work Phone: [facility] 01-23-2023 18:03-0400 Body mass index (BMI) [Ratio] 19.5 kg/m2 Dr. Adela Harley Work Phone: [facility] 01-23-2023 18:03-0400 Body temperature 96.8 [degF] Dr. Adela Harley Work Phone: [facility] 01-23-2023 18:03-0400 Body weight 43.[address] Adela Harley Work Phone: [facility] 11-17-2022 11:10-0400 Body weight 44.[address] Adela Harley Work Phone: [facility] 11-17-2022 11:10-0400 Diastolic blood pressure 69 mm[Hg] Dr. Adela Harley Work Phone: [facility] 11-17-2022 11:10-0400 Heart rate 58 /min Dr. Adela Harley Work Phone: [facility] 11-17-2022 11:10-0400 Respiratory rate 16 /min Dr. Adela Harley Work Phone: [facility] 11-17-2022 11:10-0400 SaO2% (BldA) [Mass fraction] 100 % Dr. Adela Harley Work Phone: [facility] [facility]22 11:10-0400 Systolic blood pressure 152 mm[Hg] Dr. Adela Harley Work Phone: [facility] 10-04-2022 09:52-0400 Body mass index (BMI) [Ratio] 18.5 kg/m2 Dr. Adela Harley Work Phone: [facility] 10-04-2022 09:52-0400 Body weight 43.[address] Adela Harley Work Phone: [facility] 10-04-2022 09:52-0400 Diastolic blood pressure 74 mm[Hg] Dr. Adela Harley Work Phone: [facility] 10-04-2022 09:52-0400 Heart rate 59 /min Dr. Adela Harley Work Phone: [facility] 10-04-2022 09:52-0400 Respiratory rate 18 /min Dr. Adela Harley Work Phone: [facility] 10-04-2022 09:52-0400 SaO2% (BldA) [Mass fraction] 99 % Dr. Adela Harley Work Phone: [facility] 10-04-2022 09:52-0400 Systolic blood pressure 125 mm[Hg] Dr. Adela Harley Work Phone: [facility] 09-21-2022 10:40-0400 Body temperature 101.41 [degF] Holly Sony REFRIGERATING TECHNICIAN.PROFESSOR OF VOICE Work Phone: [facility] 09-21-2022 10:40-0400 Body weight 43.91 kg Holly Sony REFRIGERATING TECHNICIAN.PROFESSOR OF VOICE Work Phone: [facility] 09-21-2022 10:40-0400 Diastolic blood pressure 72 mm[Hg] Holly Sony REFRIGERATING TECHNICIAN.PROFESSOR OF VOICE Work Phone: [facility] 09-21-2022 10:40-0400 Heart rate 81 /min Holly Sony REFRIGERATING TECHNICIAN.PROFESSOR OF VOICE Work Phone: [facility] 09-21-2022 10:40-0400 Respiratory rate 18 /min Holly Sony REFRIGERATING TECHNICIAN.PROFESSOR OF VOICE Work Phone: [facility] 09-21-2022 10:40-0400 SaO2% (BldA) [Mass fraction] 98 % Holly Sony REFRIGERATING TECHNICIAN.PROFESSOR OF VOICE Work Phone: [facility] 09-21-2022 10:40-0400 Systolic blood pressure 128 mm[Hg] Holly Cardoza JASONENEDINA Work Phone: [facility] 02-03-2022 11:00-0400 Body height 152.[address] Adela Harley Work Phone: [facility] Work Phone: 02-03-2022 11:00-0400 Body mass index (BMI) [Ratio] 18.3 kg/m2 Dr. Adela Harley Work Phone: [facility] Work Phone: 02-03-2022 11:00-0400 Body weight 42.[address] dAela Harley Work Phone: [facility] Work Phone: 02-03-2022 11:00-0400 Diastolic blood pressure 71 mm[Hg] Dr. Adela Harley Work Phone: [facility] Work Phone: 02-03-2022 11:00-0400 Heart rate 68 /min Dr. Adela Harley Work Phone: [facility] Work Phone: 02-03-2022 11:00-0400 Respiratory rate 16 /min Dr. Adela Harley Work Phone: [facility] Work Phone: 02-03-2022 11:00-0400 SaO2% (BldA) [Mass fraction] 100 % Dr. Adela Harley Work Phone: [facility] Work Phone: 02-03-2022 11:00-0400 Systolic blood pressure 129 mm[Hg] Dr. Adela Harley Work Phone: [facility] Work Phone: 01-06-2022 11:11-0400 Body mass index (BMI) [Ratio] 18.8 kg/m2 Dr. Adela Harley Work Phone: [facility] Work Phone: 01-06-2022 [id number] Body weight 43.[address] Adela Harley Work Phone: [facility] Work Phone: 03-03-2020 [id number] BMI (Body Mass Index) 18.79 kg/m2 [facility] 03-03-2020 [id number] Body weight 43.27 kg [facility] 03-03-2020 09:23-0400 BP Diastolic 74 mm[Hg] [facility] 03-03-2020 [id number]:[id number] BP Systolic 136 mm[Hg] [facility] 03-03-2020 [id number]:[id number] Height 151.8 cm [facility] 03-03-2020 [id number] Pulse (Heart Rate) 59 /min [facility] 03-03-2020 [id number]:[id number] Pulse Oximetry 100 % [facility] 09-03-2019 09:28-0500 BMI (Body Mass Index) 19.06 kg/m2 [facility] 09-03-2019 [id number] Body weight 43.91 kg [facility] 09-03-2019 09:28-0500 BP Diastolic 71 mm[Hg] [facility] 09-03-2019 09:28-0500 BP Systolic 128 mm[Hg] [facility] 09-03-2019 09:28-0500 Height 151.8 cm [facility] 09-03-2019 09:28-0500 Pulse (Heart Rate) 62 /min [facility] 03-13-2019 09:15-0400 BMI (Body Mass Index) 18.5 kg/m2 [facility] 03-13-2019 09:15-0400 Body weight 43.68 kg [facility] 03-13-2019 09:15-0400 BP Diastolic 70 mm[Hg] [facility] 03-13-2019 09:15-0400 BP Systolic 119 mm[Hg] Diana [facility] 03-13-2019 09:15-0400 Pulse (Heart Rate) 54 /min Diana [facility] 03-13-2019 09:15-0400 Respiratory Rate 16 /min Diana [facility] 02-06-2019 11:21-0400 BP Diastolic 63 mm[Hg] Dagoberto [facility] 02-06-2019 11:21-0400 BP Systolic 127 mm[Hg] [facility] 02-06-2019 11:21-0400 Pulse (Heart Rate) 77 /min [facility] 02-06-2019 11:21-0400 Pulse Oximetry 94 % [facility] 02-06-2019 11:21-0400 Respiratory Rate 16 /min [facility] 02-06-2019 10:37-0400 Body Temperature 97.2 [degF] [facility] 02-06-2019 07:33-0400 BMI (Body Mass Index) 17.86 kg/m2 [facility] 02-06-2019 07:33-0400 Body weight 42.19 kg [facility] 02-06-2019 07:33-0400 Height 153.7 cm [facility] 01-30-2019 09:36-0400 BMI (Body Mass Index) 17.66 kg/m2 [facility] 01-30-2019 09:36-0400 Body Temperature 97.81 [degF] Bucky [facility] 01-30-2019 09:36-0400 Body weight 43.09 kg [facility] 01-30-2019 09:36-0400 BP Diastolic 65 mm[Hg] [facility]ucky [facility] 01-30-2019 09:36-0400 BP Systolic 137 mm[Hg] [facility] 01-30-2019 09:36-0400 Height 156.2 cm Bucky Lito [facility] 01-30-2019 09:36-0400 Pulse (Heart Rate) 61 /min [facility] [employer] Comment on above: regular 01-30-2019 09:36-0400 Pulse Oximetry 100 % [facility]ucky [facility] [employer] 01-30-2019 09:36-0400 Respiratory Rate 16 /min Bucky Lito [facility] Testing [facility] [employer] Comment on above: unlabored and clear 01-08-2019 09:26-0400 BMI (Body Mass Index) 18.94 kg/m2 [facility] 01-08-2019 09:26-0400 [facility]-08-2019 09:26-0400 BP Diastolic 68 mm[Hg] [facility] 01-08-2019 09:26-0400 BP Systolic 142 mm[Hg] [facility] 01-08-2019 09:26-0400 Height 153.7 cm [facility] 01-08-2019 09:26-0400 Pulse (Heart Rate) 59 /min [facility] 01-08-2019 09:26-0400 Pulse Oximetry 99 % [facility] 01-08-2019 09:26-0400 Respiratory Rate 16 /min [facility] [employer] 12-22-2018 10:22-0400 BP Diastolic 83 mm[Hg] [facility] [employer] 12-22-2018 10:22-0400 BP Systolic 150 mm[Hg] [facility] [employer] 12-22-2018 10:22-0400 Pulse (Heart Rate) 60 /min [facility] [employer] 12-22-2018 10:22-0400 Pulse Oximetry 99 % [facility] [employer] 12-22-2018 10:22-0400 Respiratory Rate 16 /min [facility] [employer] 12-22-2018 10:12-0400 Body Temperature 98.49 [degF] [facility] [employer] 12-22-2018 08:45-0400 BMI (Body Mass Index) 18.14 kg/m2 [facility] [employer] 12-22-2018 08:45-0400 Height 154.9 cm [facility] [employer] 12-22-2018 08:45-0400 Weight 43.55 kg Dagoberto Gilbert [facility] 11-23-2018 08:07-0400 BMI (Body Mass Index) 18.44 kg/m2 [facility] 11-23-2018 08:07-0400 BP Diastolic 67 mm[Hg] [facility] 11-23-2018 08:07-0400 BP Systolic 120 mm[Hg] [facility] 11-23-2018 08:07-0400 Height 153.7 cm [facility] 11-23-2018 08:07-0400 Pulse (Heart Rate) 64 /min [facility] 11-23-2018 08:07-0400 Weight 43.55 kg [facility] 10-26-2018 09:33-0400 BP Diastolic 74 mm[Hg] [facility] 10-26-2018 09:33-0400 BP Systolic 136 mm[Hg] [facility] 10-26-2018 09:02-0400 BMI (Body Mass Index) 18.6 kg/m2 [facility] 10-26-2018 09:02-0400 Body Temperature 98.1 [degF] [facility] 10-26-2018 09:02-0400 Height 153 cm [facility] 10-26-2018 09:02-0400 Pulse (Heart Rate) 60 /min [facility] 10-26-2018 09:02-0400 Weight 43.55 kg Leah [facility] 09-12-2018 09:43-0400 BMI (Body Mass Index) 19.14 kg/m2 [facility] 09-12-2018 09:43-0400 BP Diastolic 72 mm[Hg] [facility] 09-12-2018 09:43-0400 BP Systolic 135 mm[Hg] [facility] 09-12-2018 09:43-0400 Pulse (Heart Rate) 52 /min [facility] 09-12-2018 09:43-0400 Weight 44.81 kg [facility] Encounters Encounter Date Encounter Type Care Provider Facility Start: 03-01-2025 ambulatory Adela Harley Facility: [facility] Start: 02-22-2025 ambulatory Adela Harley Facility: [facility] Start: 02-18-2025 End: 02-18-2025 Patient encounter procedure Yessica Greene MD Work Phone: Cardiology Comment on above: 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 Adela Harley MD Work Phone: -Cardiac Rehab Start: 01-30-2025 End: 01-31-[address] Sukumar Saldaña MD -Cardiac Rehab Work Phone: Start: 01-09-2025 End: 01-09-[address] Khanh Hernandez MD -[facility] Work Phone: Start: 01-09-2025 End: 01-09-[address] Adela Harley MD Work Phone: -[facility] Start: 01-09-[address] Domingo Saldaña MD -Cardiac Rehab Work Phone: Start: 01-01-2025 Non-patient / Non-visit Dr. Isaac Lowe MD -[facility] Work Phone: Start: 12-31-2024 End: 12-31-[address] Sukumar Saldaña MD -Cardiac Rehab Work Phone: Start: 12-31-2024 End: 12-31-[address] Adela Harley MD Work Phone: -Cardiac Rehab Start: 12-24-2024 End: 12-24-[address] Adela Harley MD Work Phone: [facility] Work Phone: Start: 12-24-2024 End: 12-24-[address] Sukumar Saldaña MD -Cardiac Rehab Work Phone: Start: 12-24-2024 End: 12-24-2024 ambulatory [facility] Facility:[facility] Start: 12-17-2024 Non-patient / Non-visit Grace Jane RN -[facility] Work Phone: Start: 12-17-2024 ambulatory [facility] Facility: [facility] Start: 12-14-2024 Non-patient / Non-visit Dr. Katie Berry MD -[facility] Start: 12-14-2024 Non-patient / Non-visit Dr. Armando Qiu [facility] Work Phone: Start: 12-13-2024 Non-patient / Non-visit Dr. Armando Qiu [facility] Work Phone: Start: 12-13-2024 Non-patient / Non-visit Dr. Vic Saldaña MD -[facility] Start: 12-13-[address] Adela butler MD Work Phone: [facility] Work Phone: Start: 12-12-2024 ambulatory [facility] Facility: [facility] Start: 12-12-2024 Non-patient / Non-visit Dr. Vic Saldaña MD -[facility] Start: 12-12-2024 Non-patient / Non-visit Dr. Gale Hernandez MD -[facility] Start: 12-12-2024 End: 12-14-2024 ambulatory [facility] Facility:[facility] Start: 12-12-2024 End: 12-14-2024 Evaluation and management of inpatient Dr. Mary Anne Tijerina DO -Intensive Care Unit Work Phone: Start: 12-12-2024 End: 12-14-[address] Adela Harley MD Work Phone: [facility] Work Phone: Start: 08-27-2024 End: 08-27-[address] Adela Harley MD -Laboratory Work Phone: Start: 08-27-2024 End: 08-27-2024 ambulatory Adela Harley Facility:[facility] Start: 06-25-2024 End: 06-25-2024 ambulatory YESSICA GREENE Facility:[facility] Start: 06-25-2024 End: 06-25-2024 Patient encounter procedure Yessica Greene MD Work Phone: Cardiology Comment on above: Primary hypertension (Primary Dx); Postsurgical percutaneous transluminal coronary angioplasty (PTCA) status; Hx of CABG Start: 05-08-2024 End: 05-08-2024 ambulatory Adela Harley Facility:[facility] Start: 02-27-2024 End: 02-27-2024 ambulatory Aicha Mims NP Facility:[facility] Start: 09-07-2023 End: 09-07-2023 Emergency department patient visit [facility]-Emergency Department Work Phone: Start: 08-22-2023 End: 08-22-2023 ambulatory [facility] Work Phone: Start: 08-22-2023 End: 08-22-2023 Patient encounter procedure [facility] Work Phone: Start: 02-21-2023 End: 02-21-[address] Adela Harley Work Phone: [facility] Work Phone: Start: 02-21-2023 End: 02-21-[address] Adela Harley Work Phone: [facility]-Laboratory Work Phone: Start: 01-25-2023 End: 01-25-[address] Adela Harley Work Phone: [facility] Work Phone: Start: 01-25-2023 End: 01-25-[address] Adela Harley Work Phone: [facility]-Laboratory, Mirian Prado [facility] Start: 01-23-2023 End: 01-23-2023 Emergency department patient visit Dr. Adlea Harley Work Phone: [facility]-Emergency Department Work Phone: Start: 11-17-2022 End: 11-17-[address] Adela Harley Work Phone: [facility] Work Phone: Start: 11-17-2022 End: 11-17-[address] Adela Harley Work Phone: [facility]-Laboratory Work Phone: Start: 10-20-2022 End: 10-20-[address] Adela Harley Work Phone: [facility] Work Phone: Start: 10-04-2022 End: 10-04-[address] Adela Harley Work Phone: [facility] Work Phone: Start: 09-22-2022 Telephone encounter Blaine kaur REFRIGERATING TECHNICIAN.PROFESSOR OF VOICE Work Phone: [facility] Comment on above: Results Start: 09-21-2022 End: 09-21-2022 Patient encounter procedure Holly Cardoza REFRIGERATING TECHNICIAN.PROFESSOR OF VOICE Work Phone: [facility] Comment on above: URI with cough and c ongestion (Primary Dx) Start: 08-24-2022 End: 08-24-2022 ambulatory [facility] Work Phone: Start: 08-24-2022 End: 08-24-2022 Patient encounter procedure [facility] Bone D[facility] Start: 08-02-2022 End: 08-02-2022 ambulatory [facility] Work Phone: Start: 08-02-2022 End: 08-02-2022 Patient encounter procedure [facility] Start: 05-19-2022 End: 05-19-[address] Adela Harley Work Phone: [facility] Work Phone: Start: 05-19-2022 End: 05-19-[address] [facility] Start: 02-18-2022 End: 02-18-[address] Adela Harley Work Phone: [facility] Work Phone: Start: 02-18-2022 End: 02-18-[address] [facility] Start: 02-03-2022 End: 02-03-[address] Adela Harley Work Phone: [facility] Start: 02-01-2022 End: 02-01-[address] Adela Harley Work Phone: [facility] Start: 01-29-2022 End: 01-29-[address] Adela Harley Work Phone: [facility] Start: 01-20-2022 End: 01-20-[address] Adela Harley Work Phone: [facility] Start: 01-06-2022 End: 01-06-[address] Adela Harley Work Phone: [facility] Start: 01-19-2021 Release of Information Provide r Not In System [facility] Mapping Start: 01-19-2021 ROSA Legacy Provider Not I n System [facility] Historical Mapping Start: 08-21-2020 End: 08-21-2020 Orders Only Judi Norwood Work Phone: [facility] Start: 03-03-2020 End: 03-03-2020 Office outpatient visit 25 minutes Diana Nolasco Katelin Work Phone: [facility] Comment on above: Essential hypertensi on; Atherosclerosis of coronary artery bypass graft of [place] heart without angina pectoris; Postmenopausal atrophic vaginitis; Acquired hypothyroidism; Pure hypercholesterolemia Start: 09-03-2019 End: 09-03-2019 Office outpatient visit 25 minutes Diana Gaurav Thomason Work Phone: [facility] Comment on above: Atherosclerosis of c oronary artery bypass graft of [place] heart without angina pectoris (Primary Dx); Pure hypercholesterolemia; Acquired hypothyroidism; Postmenopausal atrophic vaginitis; Essential hypertension; Hyponatremia Start: 03-15-2019 End: 03-15-2019 Telephone encounter Jolene Bearden [facility] Comment on above: Diarrhea (diarrhea) Start: 03-13-2019 End: 03-13-2019 Office outpatient visit 25 minutes Diana Nolasco Katelin Work Phone: [facility] Comment on above: Essential hypertensi on (Primary Dx); Atherosclerosis of coronary artery bypass graft of [place] heart without angina pectoris; Acquired hypothyroidism; Pure hypercholesterolemia; Hormone replacement therapy (postmenopausal); Hyponatremia; Postmenopausal atrophic vaginitis; Hiatal hernia Start: 03-06-2019 End: 03-06-2019 Telephone encounter Diana Thomason Work Phone: [facility] Comment on above: Error Postmenopausal atrop hic vaginitis Start: 02-06-2019 End: 02-06-2019 Subsequent hospital visit by physician Dagoberto Gilbert Work Phone: [facility] Periop Comment on above: Abdominal pain, righ t upper quadrant Start: 01-30-2019 End: 01-30-2019 Admission to establishment Dagoberto Gilbert Work Phone: [facility] Pre Admission Comment on above: Preop testing (Prima ry Dx); Abdominal pain, right upper quadrant; Essential hypertension Start: 01-12-2019 End: 01-12-2019 Refill Diana Thomason Work Phone: [facility] Comment on above: Essential hypertensi on (Primary Dx) Start: 01-11-2019 End: 01-11-2019 Refill Diana Thomason Work Phone: [facility] Start: 01-08-2019 End: 01-08-2019 Refill Dagoberto Dangelolindayadi Work Phone: [facility] General Surgery Start: 01-08-2019 End: 01-08-2019 Office consultation new/estab patient 30 min Denis Bass Work Phone: [facility] Cardiology Comment on above: Pre-operative cardio vascular examination (Primary Dx); Chronic stable angina; Essential hypertension; Family history of coronary artery disease; S/P CABG x 1; Coronary stent occlusion, sequela Start: 01-05-2019 End: 01-05-2019 Patient encounter procedure Other Other [facility] Start: 12-22-2018 Notes/Results Only Dagoberto Ganga García john Work Phone: NOTES/RESULTS Start: 12-22-2018 End: 12-22-2018 Patient encounter procedure Dagoberto Gilbert Work Phone: [facility] Endoscopy Clinic Comment on above: Gastroesophageal ref lux disease, esophagitis presence not specified Start: 11-23-2018 End: 11-23-2018 Office outpatient visit 25 minutes Diana Thomason Work Phone: [facility] Comment on above: Epigastric pain (Gila zakia Dx); Right upper quadrant pain; Gastroesophageal reflux disease without esophagitis; Essential hypertension; Postmenopausal atrophic vaginitis Start: 10-30-2018 End: 10-30-2018 Patient encounter procedure Historical Provider [facility] Start: 10-27-2018 End: 10-27-2018 Telephone encounter Philippe Valadez [facility] Comment on above: Medication Problem Start: 10-26-2018 End: 10-26-2018 Office outpatient visit 40 minutes Leah Rodgers Work Phone: [facility] Comment on above: Chest pain, unspecif ied type (Primary Dx); Epigastric pain; Essential hypertension Start: 09-21-2018 End: 09-21-2018 Patient encounter procedure Diana Thomason Work Phone: [facility] Comment on above: Arrived Start: 09-12-2018 End: 09-12-2018 Office outpatient visit 25 minutes Diana Thomason Work Phone: [facility] Comment on above: Essential hypertensi on (Primary Dx); Atherosclerosis of coronary artery bypass graft of [place] heart without angina pectoris; Acquired hypothyroidism; Pure hypercholesterolemia; Postmenopausal atrophic vaginitis; Post-menopausal Start: 09-05-2018 End: 09-05-2018 Refill Diana Thomason Work Phone: [facility] Start: 03-07-2018 Patient encounter Diana Medrano ility:[place] Start: 03-07-2018 End: 03-07-2018 Patient encounter Diana Steiner Thomason Work Phone: [facility] Start: 09-13-2017 Patient encounter Diana Medrano ility:[place] Start: 03-21-2017 Patient encounter Diana Medrano ility:[place] Procedures Date Procedure Procedure Detail Performing Clinician Start: 12-14-[address] No Harley MD Work Phone: Start: 12-13-2024 History of placement of stent for coronary artery disease History of coronary artery stent placement Dr. Adela Harley MD Work Phone: Comment on above: [id number] 1998; BEO-Xzlfmgchb-mfszpf and mid RCA w/ CARLENE-distal, mid and proximal RCA; FFR LEFT CIRCUMFLEX: Moderate OM disease with FFR = 0.89 02/03/2021; 12/13/2024: CARLENE (in stent restenosis) to Ostial and Proximal RCA using Aj Turner 3.0 x12mm . Previously deployed stent to RCA with struts in aorta, engaged wt 3 DRC guide. Start: 12-13-2024 Coagulation time, activated Dr. Adela vaughan MD Work Phone: Start: 12-13-[address] No Harley MD Work Phone: Start: 12-12-2024 Cardiovascular stress test using pharmacologic stress agent Dr. Adela Harley MD Work Phone: Start: 12-12-2024 Serum inorganic phosphate measurement Dr. Adela Harley MD Work Phone: Start: 12-11-2024 Plain chest X-ray Dr. Adela Harley MD Work Phone: Start: 12-11-[address] No Harley MD Work Phone: Start: 08-27-2024 Measurement of renal function Dr. Adela Harley MD Work Phone: Comment on above: GFR Calc Start: 06-25-2024 History of coronary artery bypass [...] stent placement Dr. Adela Harley Work Phone: Comment on above: [id number] 1998; JLF-Ztjuuxduz-lchqdk and mid RCA w/ CARLENE-distal, mid and proximal RCA; FFR LEFT CIRCUMFLEX: Moderate OM disease with FFR = 0.89 02/03/2021 Start: 08-27-2019 Lipid 1996 panel - Serum [...] grafting H/O coronary artery bypass surgery Dr. Mary Anne Tijerina DO Comment on above: CABG x 1 AUGUSTINE-LAD 06/16/99 Plan of Treatment Date Care Activity Detail Author Start: 09-06-2033 Urine microalbumin profile DTaP,Tdap,Td Vaccine (2 - Td or Tdap) [facility] Start: 02-03-2026 LIPID SCREEN LIPID SCREEN [facility] Start: 09-16-2025 End: 09-16-2025 Patient encounter procedure 09/16/2025 1:40 PM EDT Office Visit Cardiology [address] [place] [address] Yessica Greene MD [address], [address] [place] [address] 6 month follow up Cardiology Comment on above: 6 month follow up Start: 03-20-2025 Colonoscopy COLONOSCOPY [facility] Start: 03-04-2025 Influenza vaccination Influenza Vaccine (#1) [facility] Start: 01-09-2025 Evaluation of diagnostic study results [facility] Start: 01-07-2025 End: 01-07-2025 Patient encounter procedure 01/07/2025 10:20 AM EDT Office Visit Cardiology [address] FRANCIS[place] [address] Yessica Greene MD [address], [address] [place], [place] [id number] 6 MONTH FOLLOW UP Cardiology Comment on above: 6 MONTH FOLLOW UP Start: 12-16-2024 Electrocardiographic procedure [facility] Start: 12-15-2024 Electrocardiographic procedure [facility] Start: 12-14-2024 [facility] Start: 12-14-2024 Electrocardiographic procedure [facility] Start: 12-14-2024 Patient discharge [facility] Start: 12-14-2024 Complete blood count [facility] Start: 12-13-2024 Patient referral [facility] Work Phone: Start: 12-13-2024 Ambulation without limitation [facility] Start: 12-13-2024 Dietary regime [facility] Start: 12-13-2024 End: 12-13-2024 Notification of physician [facility] Start: 12-13-2024 Patient education [facility] Start: 12-13-2024 End: 12-13-2024 [facility] Start: 12-13-2024 Cardiac monitoring [facility] Start: 12-13-2024 Cardiac rehabilitation - phase 1 [facility] Start: 12-13-2024 Cardiac rehabilitation - phase 2 [facility] Start: 12-13-2024 Oxygen therapy [facility] Start: 12-13-2024 Patient discharge [facility] Start: 12-13-2024 Pulse taking [facility] Start: 12-12-2024 End: 12-12-2024 [facility] Start: 12-12-2024 Verification routine [facility] Start: 12-12-2024 [facility] Start: 12-12-2024 Notification of physician [facility] Start: 12-12-2024 Preoperative care [facility] Start: 12-12-2024 [facility] Start: 12-12-2024 End: 12-12-2024 Following clinical pathway protocol [facility] Start: 12-12-2024 Assessment of risk of venous thromboembolism [facility] Start: 12-12-2024 End: 12-12-2024 Catheterization of vein [facility] Start: 12-12-2024 Incentive spirometry [facility] Start: 12-12-2024 Insertion of catheter into peripheral vein [facility] Start: 12-12-2024 Measuring intake and output [facility] Start: 12-12-2024 Oxygen therapy [facility] Start: 12-12-2024 Providing care according to standard [facility] Start: 12-12-2024 Provision of activity privileges [facility] Start: 12-12-2024 Referral to vac press operator [facility] Start: 12-12-2024 Referral to service [facility] Start: 12-12-2024 Tobacco use cessation education [facility] Start: 12-12-2024 [facility] Start: 12-12-2024 Verification routine [facility] Start: 12-12-2024 Admission procedure [facility] Start: 12-12-2024 Hospital admission, emergency, from emergency room, medical nature [facility] Start: 12-11-2024 End: 12-11-2024 [facility] Start: 08-27-2024 Fasting lipid profile LIPID SCREENING [facility] Start: 07-04-2024 Advance Directive Discussion Advance Directive Discussion [facility] Start: 07-04-2024 Medicare Advantage Annual Wellness Visit Medicare Advantage Annual Wellness Visit [facility] Start: 03-06-2024 Fasting lipid profile LIPID SCREENING [facility] Start: 02-05-2024 DIABETES SCREEN DIABETES SCREEN [facility] Start: 02-05-2024 Diabetes Screening Diabetes Screening [facility] Start: 09-05-2023 Fasting lipid profile LIPID SCREENING [facility] Start: 07-04-2023 Advance Directive Discussion Advance Directive Discussion [facility] Start: 09-21-2022 End: 10-05-2022 SARS-CoV-2 (COVID-19) RNA [Presence] in Respiratory specimen by CANDIS with probe detection [facility] Work Phone: Comment on above: Expected: 09/21/2022, Expires: 3 Start: 07-04-2022 ADVANCE DIRECTIVE DISCUSSION ADVANCE DIRECTIVE DISCUSSION [facility] Start: 07-04-2022 DEPRESSION ASSESSMENT DEPRESSION ASSESSMENT [facility] Start: 03-04-2021 Influenza vaccination Sequential Influenza Vaccine (#1) [facility] Start: 08-26-2020 End: 08-26-2020 Office Visit 08/26/2020 Office Visit Family Medicine Diana Thomason MD [address] [place] [address] [facility] Start: 03-06-2020 TSH Qn TSH [facility] Start: 03-04-2020 Influenza vaccination INFLUENZA VACCINE (#1) [facility] Start: 03-04-2020 Influenza vaccination given Sequential Influenza Vaccine (#1) [facility] Start: 03-03-2020 End: 03-03-2020 Office Visit 03/03/2020 Office Visit Family Medicine Diana Thomason MD [address] [place] [address] [phone] [facility] Start: 02-10-2020 End: 04-10-2020 Comprehensive metabolic 2000 panel COMPREHENSIVE METABOLIC PANEL Lab Routine Atherosclerosis of coronary artery bypass graft of [place] heart without angina pectoris Pure hypercholesterolemia Essential hypertension Hyponatremia Expected: 02/10/2020, Expires: 04/10/2020 [facility] Comment on above: Expected: 02/10/2020, Expires: 0 Start: 01-31-2020 End: 03-31-2020 Complete blood count with white cell differential, automated CBC, EDIF, PLATELET Lab Routine Atherosclerosis of coronary artery bypass graft of [place] heart without angina pectoris Essential hypertension Expected: 01/31/2020 (Approximate), Expires: 03/31/2020 [facility] Comment on above: Expected: 01/31/2020 (Approximate), Expi res: 03/31/2020 Start: 01-31-2020 End: 05-30-2020 LIPID PANEL W CALCULATED LDL LIPID PANEL W CALCULATED LDL Lab Routine Atherosclerosis of coronary artery bypass graft of [place] heart without angina pectoris Pure hypercholesterolemia Essential hypertension Expected: 01/31/2020, Expires: 05/30/2020 [facility] Comment on above: Expected: 01/31/2020, Expires: 0 Start: 01-08-2020 End: 01-08-2020 Office Visit 01/08/2020 Office Visit Cardiovascular Medicine Denis Bass DO [address] [facility] [place] [address] [facility] Start: 09-22-2019 Screening for osteoporosis DEXA SCAN DISCUSSION [facility] Start: 09-05-2019 Thyrotropin Qn TSH [facility] Start: 09-03-2019 End: 09-02-2020 Free T4 [Mass/Vol] T4 FREE Lab Routine Acquired hypothyroidism Expected: 09/03/2019, Expires: 09/02/2020 [facility] Comment on above: Expected: 09/03/2019, Expires: 1 Start: 09-03-2019 End: 09-02-2020 TSH Qn TSH Lab Routine Acquired hypothyroidism Expected: 09/03/2019, Expires: 09/02/2020 [facility] Comment on above: Expected: 09/03/2019, Expires: 1 Start: 09-03-2019 End: 09-03-2019 Office Visit 09/03/2019 Office Visit Family Medicine Diana Thomason MD [address] [place] [address] [facility] Start: 08-20-2019 End: 10-19-2019 Comprehensive metabolic 2000 panel COMPREHENSIVE METABOLIC PANEL Lab Routine Pure hypercholesterolemia Hyponatremia Expected: 08/20/2019, Expires: 10/19/2019 [facility] Comment on above: Expected: 08/20/2019, Expires: 0 Start: 08-10-2019 End: 12-08-2019 LIPID PANEL W CALCULATED LDL LIPID PANEL W CALCULATED LDL Lab Routine Pure hypercholesterolemia Expected: 08/10/2019, Expires: 12/08/2019 [facility] Comment on above: Expected: 08/10/2019, Expires: 0 Start: 03-13-2019 End: 03-13-2019 Office Visit [facility] Start: 03-11-2019 End: 06-09-2019 LIPID PANEL W CALCULATED LDL LIPID PANEL W CALCULATED LDL Lab Routine Pure hypercholesterolemia Atherosclerosis of coronary artery bypass graft of [place] heart without angina pectoris Essential hypertension Expected: 03/11/2019, Expires: 06/09/2019 [facility] Comment on above: Expected: 03/11/2019, Expires: 9 Start: 03-04-2019 Influenza vaccination [facility] Start: 02-24-2019 End: 04-10-2019 CBC, EDIF, PLATELET CBC, EDIF, PLATELET Lab Routine Atherosclerosis of coronary artery bypass graft of [place] heart without angina pectoris Essential hypertension Expected: 02/24/2019 (Approximate), Expires: 04/10/2019 [facility] Comment on above: Expected: 02/24/2019 (Approximate), Expi res: 04/10/2019 Start: 02-24-2019 End: 04-20-2019 Comprehensive metabolic 2000 panel COMPREHENSIVE METABOLIC PANEL Lab Routine Pure hypercholesterolemia Atherosclerosis of coronary artery bypass graft of [place] heart without angina pectoris Essential hypertension Expected: 02/24/2019, Expires: 04/20/2019 [facility] Comment on above: Expected: 02/24/2019, Expires: 9 Start: 02-19-2019 End: 02-19-2019 Office Visit 02/19/2019 Office Visit General Surgery Dagoberto Gilbert, [address] [place], [place] [phone] [facility] General Surgery Start: 02-06-2019 End: 02-06-2019 Procedure Pass [facility] Periop Comment on above: Abdominal pain, right upper quadrant CHOLECYSTECTOMY [facility]A ROSCOPIC[facility]st asst Start: 01-30-2019 End: 02-27-2019 Basic metabolic 2000 panel BASIC METABOLIC PANEL Lab Routine Preop testing Expected: 01/30/2019, Expires: 02/27/2019 [facility] Comment on above: Expected: 01/30/2019, Expires: 9 Start: 01-08-2019 End: 01-08-2019 Office Visit 01/08/2019 Office Visit Cardiovascular Medicine Denis Bass DO [address] [place] [address] [facility] Cardiology Start: 11-23-2018 End: 11-23-2018 Office Visit 11/23/2018 Office Visit Family Medicine Diana Thomason MD [address] [place] [address] [phone] [facility] Start: 10-31-2018 End: 10-31-2018 Office Visit 10/31/2018 Office Visit Family Medicine Diana Thomason MD [address] [place] [address] [phone] [facility] Start: 09-12-2018 End: 09-13-2019 Bone density scan BONE DENSITY AXIAL (HIP, PELVIS, SPINE) Imaging Routine Post-menopausal Expected: 09/12/2018, Expires: 09/13/2019 [facility] Comment on above: Expected: 09/12/2018, Expires: 0 Start: 09-12-2018 End: 09-13-2019 T4 free mass conc T4 FREE Lab Routine Acquired hypothyroidism Expected: 09/12/2018, Expires: 09/13/2019 [facility] Comment on above: Expected: 09/12/2018, Expires: 0 Start: 09-12-2018 End: 09-12-2019 Thyrotropin Qn TSH Lab Routine Acquired hypothyroidism Expected: 09/12/2018, Expires: 09/12/2019 [facility] Comment on above: Expected: 09/12/2018, Expires: 0 Start: 09-12-2018 End: 09-12-2018 Office Visit 09/12/2018 Office Visit Family Medicine Diana Thomason MD [address] [place] [address] [phone] Leah Rodgers APRN-PROFESSOR OF VOICE [address] [place] [address] [phone] [facility] Start: 03-04-2018 Influenza vaccination [facility] Start: 04-21-2016 Screening for osteoporosis DEXA SCAN DISCUSSION [facility] Start: 03-20-2016 Colonoscopy COLON CANCER SCREENING DISCUSSION [facility] Start: 03-20-2016 Protein mass conc COLON CANCER SCREENING DISCUSSION [facility] Start: 05-30-2013 Shingrix Vaccine (2 of 3) Shingrix Vaccine (2 of 3) [facility] Start: 05-30-2013 Zoster vaccine hzv live for subcutaneous use ZOSTER (SHINGLES) VACCINE (2 of 3) [facility] Start: 2012 BONE DENSITY BONE DENSITY [facility] Start: 2012 Fall risk assessment Falls Risk Assessment [facility] Start: 2012 Pneumococcal vaccination PNEUMOCOCCAL VACCINE AGE 65+ (1 of 2 - PCV13) [facility] Start: 2012 PNEUMOCOCCAL: 65+ (1 - PCV) PNEUMOCOCCAL: 65+ (1 - PCV) [facility] Start: 1997 Administration of herpes zoster vaccine Zoster Vaccines (1 of 2) [facility] Start: 1997 Screening for malignant neoplasm of colon [facility] Start: 1997 SHINGRIX VACCINE (1 of 2) SHINGRIX VACCINE (1 of 2) [facility] Start: 1997 ZOSTER VACCINES (1 of 2) ZOSTER VACCINES (1 of 2) [facility] Start: 1992 COLOGUARD (FIT-DNA) COLOGUARD (FIT-DNA) [facility] Start: 1992 Colonoscopy COLONOSCOPY [facility] Start: 1992 COLORECTAL CANCER SCREENING COLORECTAL CANCER SCREENING [facility] Start: [address] COLONOGRAPHY [facility] Start: 1992 FECAL OCCULT BLOOD FECAL OCCULT BLOOD [facility] Start: 1992 SIGMOIDOSCOPY SIGMOIDOSCOPY [facility] Start: 1987 Protein mass conc MAMMOGRAM SCREENING DISCUSSION [facility] Start: 1987 Screening for malignant neoplasm of breast Mammogram [facility] Start: 1968 Screening for malignant neoplasm of cervix PAP SMEAR DISCUSSION [facility] Start: 1966 Third diphtheria, tetanus and acellular pertussis (DTaP) vaccination TDAP (ADULT) [facility] Start: 1966 Urine microalbumin profile DTAP,TDAP,TD (1 - Tdap) [facility] Start: 1965 Annual PCP Team Chronic Disease Visit Annual PCP Team Chronic Disease Visit [facility] Start: 1965 Anxiety Screening Anxiety Screening [facility] Start: 1965 BP Controlled (<130/80) BP Controlled (<130/80) [facility] in Start: 1965 Depression Screening Depression Screening [facility] Start: 1965 Hepatitis C antibody, confirmatory test Hepatitis C Screening [facility] Start: 1965 Hepatitis C screening Hepatitis C Screening [facility] Start: 1965 HEPATITIS C SCREENING HEPATITIS C SCREENING [facility] Start: 1965 Tetanus vaccination TETANUS [facility] Start: 1963 COVID-19 Vaccine (1 of 2) COVID-19 Vaccine (1 of 2) [facility] Start: 1959 Adolescent depression screening assessment Depression Screening (PHQ9) [facility] Start: 1959 COVID-19 Vaccine (1) COVID-19 Vaccine (1) [facility] Start: 1959 Depression screening using PHQ-9 (Patient Health Questionnaire 9) score Depression Screening (PHQ9) [facility] Start: 1953 Pneumococcal Vaccine: Age 65+ (1 of 2 - PPSV23) Pneumococcal Vaccine: Age 65+ (1 of 2 - PPSV23) [facility] Start: 1950 History and physical examination, annual for health maintenance Wellness Visit [facility] Start: 1947 Fall risk assessment Falls Risk Assessment [facility] Start: 1947 Hepatitis C antibody, confirmatory test HEPATITIS C VIRUS SCREENING [facility] Start: 1947 Screening mammography Mammogram [facility] Start: 1947 HEPATITIS C SCREENING HEPATITIS C SCREENING [facility] Start: 1947 Screening colonoscopy COLONOSCOPY [facility] Start: 1947 End: 1947 Screening for osteoporosis DEXA SCAN [facility] Start: 1947 End: 1947 Tetanus vaccination [facility] Alanine aminotransfe rase [Enzymatic activity/volume] in Serum or Plasma [facility] Albumin [Mass/volume ] in Serum or Plasma [facility] Alkaline phosphatase [Enzymatic activity/volume] in Serum or Plasma [facility] Anion gap in Serum o r Plasma [facility] Bilirubin, total measurement [facility] BUN/Creatinine ratio [facility] Calcium [Mass/volume ] in Serum or Plasma [facility] Carbon dioxide, tota l [Moles/volume] in Central venous blood [facility] Creatinine [Mass/vol ume] in Serum or Plasma [facility] Ecg routine ecg w/le ast 12 lds w/i&r [place] ELECTROCARDIOGRAM, COMPLETE [place] - OFFICE PERFORMED Routine Chest pain, unspecified type Ordered: 10/26/2018 [facility] Comment on above: Ordered: 10/26/2018 Erythrocyte mean corpuscular volume determination [facility] Evaluation of diagno stic study results [facility] Evaluation of diagno stic study results [facility] Free T4 [Mass/Vol] T4 FREE Lab R outine Acquired hypothyroidism Ordered: 03/03/2020 [facility] Comment on above: Ordered: 03/03/2020 Glucose [Mass/volume ] in Serum or Plasma [facility] Hematocrit [Volume Fraction] of Blood [facility] Hemoglobin [Mass/vol ume] in Blood [facility] HEPATIC FUNCTION PANEL HEPATIC F UNCTION PANEL Lab Routine Pure hypercholesterolemia Ordered: 03/03/2020 [facility] Comment on above: Ordered: 03/03/2020 Leukocytes [#/volume ] in Blood [facility] LIPID PANEL W CALCUL ATED LDL LIPID PANEL W CALCULATED LDL Lab Routine Pure hypercholesterolemia Ordered: 03/03/2020 [facility] Comment on above: Ordered: 03/03/2020 Mean corpuscular hem oglobin concentration determination [facility] Mean corpuscular hem oglobin determination [facility] Measurement of renal function [facility] Patient Education [facility] Work Phone: Patient referral [facility] Work Phone: Platelets [#/volume] in Blood [facility] Potassium measurement [facility] Red blood cell count [facility] Red cell distributio n width determination [facility] Serum chloride measurement [facility] Sodium measurement [facility] Standard ECG ECG ECG Routine Pre-operative cardiovascular examination Ordered: 01/08/2019 [facility] Comment on above: Ordered: 01/08/2019 SURGICAL PATHOLOGY REQUEST SURGI YAN PATHOLOGY REQUEST Surg Path Routine Abdominal pain, right upper quadrant ONE TIME for 1 Occurrences starting 02/06/2019 [facility] Comment on above: ONE TIME for 1 Occurrences starting 12/2018 Total protein measurement [facility] TSH Qn TSH Lab Routine Acquired hypothyroidism Ordered: 03/03/2020 [facility] Comment on above: Ordered: 03/03/2020 Urea nitrogen [Mass/ volume] in Serum or Plasma [facility] Immunizations Immunization Date Immunization Notes Care Provider Jazmin Blanc-15-2024 influenza virus vacc ine, unspecified formulation Yessica Greene MD Work Phone: [facility] 09-07-2023 tetanus toxoid, redu pete diphtheria toxoid, and acellular pertussis vaccine, adsorbed [facility] 03-30-2017 pneumococcal polysaccharide vaccine, 23 valent [facility] 03-17-2016 pneumococcal conjuga te vaccine, 13 valent [facility] 03-04-2016 pneumococcal conjuga te vaccine, 13 valent [facility] 04-04-2013 zoster vaccine, live [facility] 04-04-2013 zoster vaccine, unspecified formulation [facility] Payers Date Payer Category Payer Self-pay [id number] 2023 Medicare [employer] [place] [id number] 2023-Present [phone] [address] [place] [address] [facility] [place] [place] [id number] 2023 [place] Care[place] [id number] 2023 Medicare [id number] 2022 Unknown ANTHEM BLUE CROS S AND BLUE SHIELD ANTHEM MEDIBLUE O [id number] 2022-Present [phone] [address] [place] [address] HMO [id number] 2017 Medicare MEDICARE ANTHEM HMO OR PPO MEDICARE ANTHEM HMO OR PPO xxxxxxxxxxxx 2017-Present xxxxxxxxxxxx [id number] 2017 Medicare MEDICARE ANTHEM HMO OR PPO MEDICARE ANTHEM HMO OR PPO xxxxxxxxxx 2017-Present xxxxxxxxxx [id number] 2015 Medicare [id number] Blue Cross Blue Shield [id number] Unknown [id number] Unknown [id number]. 462 Unknown [id number] [id number]. 462 Unknown [id number]. 462 Unknown [id number] 08.19.830.1.817203.3.579.2. 462 Unknown [id number] 08.19.830.1.825508.3.579.2. 462 Unknown [id number] 08.19.830.1.418063.3.579.2. 462 Unknown [id number] .[id number]. 462 Unknown [id number] .840.1.170755.3.579.2. 462 Unknown [id number] .[id number]. 462 Unknown [id number] 2.16.840.1.708666.3.579.2. 462 Unknown [id number] 2.16.840.1.615302.3.579.2. 462 Unknown [id number] 2.16.840.1.666665.3.579.2. 462 Unknown [id number] 2.16.840.1.368818.3.579.2. 462 Unknown [id number] 2.16.840.1.894509.3.579.2. 462 Unknown [id number] 2.16.840.1.932685.3.579.2. 462 Unknown [id number] 2.16.840.1.661133.3.579.2. 462 Unknown [id number] 2.16.840.1.494696.3.579.2. 462 Unknown [id number] 2.16.840.1.547138.3.579.2. 462 Social History Date Type Detail Facility Start: 10-26-2016 End: 09-21-2022 Tobacco smoking status NHIS Never smoker [facility] Start: 1945 Sex Assigned At Not on file O [facility] Start: 03-13-2019 End: 06-25-2024 Alcohol intake No [facility] Start: 10-26-2016 End: 09-03-2019 Alcohol intake Current non-drinker of alcohol (finding) [facility] Start: 03-03-2020 End: 09-21-2022 Tobacco use and exposure Never used [facility] Exposure to SARS-CoV -2 (event) Not sure [facility] Start: 02-03-2022 End: 09-07-2023 Tobacco smoking status NEIS Unknown if ever smoked [facility] Start: 05-30-2020 None [facility] Start: 05-30-2020 Non-smoker [facility] Start: 1945 Sex Assigned At Female [facility] Start: 06-25-2024 End: 02-18-2025 History of Social function [facility] Start: 06-04-2012 National Score (1-100), lower number is lower risk [address] [facility] Medical Equipment Procedure Code Equipment Code Equipment Origin al Text Equipment Identifier Dates Drug-eluting coronary artery stent, [id number]-coated [id number] FDA Start: 12-13-2024 Goals Date Patient Goal Desired Activity /State Functional Status Date Assessment Result Facility 12-14-2024 Functional status Ambulates [facility] Work Phone: 12-13-2024 Functional status Bedrest [facility] Work Phone: 02-04-2021 Are you deaf, or do you have serious difficulty hearing No 02/04/2021 11:39 AM EDT Jazmin Blum, MAXI No [facility] 02-04-2021 Are you blind, or do you have serious difficulty seeing, even when wearing glasses No 02/04/2021 11:39 AM Jazmin Malone, MAXI No [facility] 02-04-2021 Do you have serious difficulty walking or climbing stairs No 02/04/2021 11:39 AM TIMMYT Jazmin Blum, MAXI No [facility] 02-04-2021 Do you have difficul ty dressing or bathing No 02/04/2021 11:39 AM TIMMYT Jazmin Blum, MAXI No [facility] 02-04-2021 Because of a physica l, mental, or emotional condition, do you have difficulty doing errands alone such as visiting a physician's office or shopping No 02/04/2021 11:39 AM EDJazmin Rojo, MAXI No [facility] [facility] Mental Status Date Assessment Result Facility 12-14-2024 Cognitive function Voice/Name [facility] Work Phone: 12-13-2024 Cognitive function Voice/Name [facility] Work Phone: 12-11-2024 Cognitive function Voice/Name [facility] Work Phone: 01-23-2023 Cognitive function Level Of Cons ciousness Awake;Alert;Appropriate;Fo llows Commands [facility] Work Phone: 02-04-2021 Because of a physica l, mental, or emotional condition, do you have serious difficulty concentrating, remembering, or making decisions No 02/04/2021 11:39 AM EDT Jazmin Blum RN No [facility] Clinical Notes 06-16-1999 to 02-18-2025 Yessica Greene MD - 02/18/2025 3:54 PM EDTClaMl castro LPN - 02/18/2025 12:55 PM EDT Note Date & Type Note Facility 02-18-2025 Note HNO ID: [id number] Author: YESSICA GREENE MD Service: ? Author Type: Physician Type: Progress Notes Filed: 02/18/2025 15:59 Note Text: Yessica Greene MD Interventional Cardiology [address] [place] [address] [phone] Chief Complaint Patient presents with: Follow Up: 6 month follow up, stent placed at [facility] on 12/13/24 by - second opinion, currently seeing [facility] HISTORY OF PRESENT ILLNESS: Mrs. Arroyo is a 79-year-old female with a history of severe CAD, status post-CABG in 1998, and prior PCI with CARLENE placement in the proximal and mid-RCA in 2020, presenting for follow-up. She reports a recent hospitalization on December 13 due to severe chest pain, described as the worst she has experienced. An abnormal stress test was performed, leading to the diagnosis of in-stent restenosis of the ostial-proximal RCA. She underwent successful PCI with placement of an [place] Turner 3x12 mm stent within the previous stent. The procedure was performed via left radial artery access. Following the procedure, she initially experienced chest pain but reports improvement after starting cardiac rehabilitation and a medication change from amlodipine to metoprolol. She denies current chest pain, dyspnea, or leg swelling. She has a family history of premature CAD, with her daughter diagnosed at age 45 and her own diagnosis at age 54. She denies smoking or alcohol use and exercises regularly, attending cardiac rehabilitation and previously participating in activities at [employer] three times a week. Current medications include aspirin, lisinopril 20 mg daily, metoprolol 12.5 mg daily, simvastatin 20 mg daily, and Plavix 75 mg daily. Recent lipid panel results show total cholesterol of 169 mg/dL, triglycerides of 81 mg/dL, and LDL of 74 mg/dL. Cardiac Risk Factors age (male over 45, [...] HYSTERECTOMY FAMILY HISTORY Family history unknown: Yes SOCIAL HISTORY[1] ALLERGIES Allergen Reactions Lactose Diarrhea Penicillins Hives Medications: Current Outpatient Medications Medication Sig Dispense Refill clopidogrel (PLAVIX) 75 mg tablet Take 75 mg by mouth once daily. Cranberry 400 mg cap Take 800 mg by mouth once daily. simvastatin (ZOCOR) 10 mg tablet Take 1 tablet by mouth every afternoon. (Patient taking differently: Take 20 mg by mouth every afternoon.) lisinopril (ZESTRIL) 10 mg tablet Take 15 mg by mouth once daily. Take 1.5 tablets daily (Patient taking differently: Take 20 mg by mouth once daily. Take 1.5 tablets daily) Estradiol (ESTRACE) 0.5 mg tablet Take 0.5 [...] the tongue every 5 minutes as needed. metoprolol succinate ER (TOPROL XL) 25 mg 24 hr tablet Take 0.5 tablets by mouth once daily. 45 tablet biotin 100 mg/gram powd Take by mouth. (Patient not taking: Reported on 02/18/2025) No current facility-administered medications for this visit. Review of Systems Constitutional: Negative for chills, diaphoresis, fever, malaise/fatigue and weight loss. HENT: Negative for congestion, ear discharge, ear pain, hearing loss, nosebleeds, sinus pain, sore throat and tinnitus. Eyes: Negative for blurred vision, double vision, photophobia, pain, discharge and redness. Respiratory: Negative for cough, hemoptysis, sputum production, shortness of breath, wheezing and stridor. Cardiovascular: Negative for chest [...] speech change, focal weakness, seizures, loss of consci (more content not included)... [facility] 02-18-2025 History of Present illness Narrative Images from the original note were not included. Yessica Greene MD Interventional Cardiology [address] [place] [address] [phone] Chief Complaint Patient presents with: Follow Up: 6 month follow up, stent placed at [facility] on 12/13/24 by - second opinion, currently seeing [facility] HISTORY OF PRESENT ILLNESS: Mrs. Arroyo is a 79-year-old female with a history of severe CAD, status post-CABG in 1998, and prior PCI with CARLENE placement in the proximal and mid-RCA in 2020, presenting for follow-up. She reports a recent hospitalization on December 13 due to severe chest pain, described as the worst she has experienced. An abnormal stress test was performed, leading to the diagnosis of in-stent restenosis of the ostial-proximal RCA. She underwent successful PCI with placement of an [place] Turner 3x12 mm stent within the previous stent. The procedure was performed via left radial artery access. Following the procedure, she initially experienced chest pain but reports improvement after starting cardiac rehabilitation and a medication change from amlodipine to metoprolol. She denies current chest pain, dyspnea, or leg swelling. She has a family history of premature CAD, with her daughter diagnosed at age 45 and her own diagnosis at age 54. She denies smoking or alcohol use and exercises regularly, attending cardiac rehabilitation and previously participating in activities at [employer] three times a week. Current medications include aspirin, lisinopril 20 mg daily, metoprolol 12.5 mg daily, simvastatin 20 mg daily, and Plavix 75 mg daily. Recent lipid panel results show total cholesterol of 169 mg/dL, triglycerides of 81 mg/dL, and LDL of 74 mg/dL. Cardiac Risk Factors age (male over 45, [...] HYSTERECTOMY FAMILY HISTORY Family history unknown: Yes SOCIAL HISTORY[1] ALLERGIES Allergen Reactions Lactose Diarrhea Penicillins Hives Medications: Current Outpatient Medications Medication Sig Dispense Refill clopidogrel (PLAVIX) 75 mg tablet Take 75 mg by mouth once daily. Cranberry 400 mg cap Take 800 mg by mouth once daily. simvastatin (ZOCOR) 10 mg tablet Take 1 tablet by mouth every afternoon. (Patient taking differently: Take 20 mg by mouth every afternoon.) lisinopril (ZESTRIL) 10 mg tablet Take 15 mg by mouth once daily. Take 1.5 tablets daily (Patient taking differently: Take 20 mg by mouth once daily. Take 1.5 tablets daily) Estradiol (ESTRACE) 0.5 mg tablet Take 0.5 [...] the tongue every 5 minutes as needed. metoprolol succinate ER (TOPROL XL) 25 mg 24 hr tablet Take 0.5 tablets by mouth once daily. 45 tablet biotin 100 mg/gram powd Take by mouth. (Patient not taking: Reported on 02/18/2025) No current facility-administered medications for this visit. Review of Systems Constitutional: Negative for chills, diaphoresis, fever, malaise/fatigue and weight loss. HENT: Negative for congestion, ear discharge, ear pain, hearing loss, nosebleeds, sinus pain, sore throat and tinnitus. Eyes: Negative for blurred vision, double vision, photophobia, pain, discharge and redness. Respiratory: Negative for cough, hemoptysis, sputum production, shortness of breath, wheezing and stridor. Cardiovascular: Negative for chest [...] does not have insomnia. Physical Examination: Vitals:BP 126/60 Pulse 63 Resp 12 Ht 4' 11 (1.50m) Wt 95 lb (43.1kg) SpO2 100% BMI 19.18 kg/(m^2). BP w/Orthostatic Vitals Date and Time Orthostatic BP Orthostatic Pulse BP Pulse BP Position BP Site BP Cuff Size 02/18/25 1300 -- -- 126/60 63 -- -- -- Peak Flow Date and Time PF Resp 02/18/25 1300 -- 12 Last 2 Encounter Wt Readings: Date: Wt: 02/18/2025 43.1 kg (95 lb) 06/25/2024 43.8 kg (96 lb 9.6 oz) Physical Exam Constitutional: General: She is [...] risk factor for coronary heart disease LDL Cholesterol, Calculated Date Value Ref Range Status 02/03/2021 35 [...] results found for: TSHREFL Prior Cardiac Testing Coronary angiography Assessment and Plan: 79-year-old female with a history of severe CAD, status post-CABG in 1998, and prior PCI with CARLENE placement in the proximal and mid-RCA ASSESSMENT/PLAN: 1. Atherosclerosis of [place] coronary artery of [place] heart with angina pectoris - ICD9: 414.01, 413.9, ICD10: I25.119 S/p recent CARLENE to In stent restenosis of RCA CARLENE. We discussed your coronary artery disease and recent stent placement: - You recently underwent a successful procedure to address in-stent restenosis in the proximal right coronary artery. A second stent ([place] 3 mm x 12 mm) was placed within the prior stent. This was performed at [facility] on December 13. - In-stent restenosis occurs when scar tissue forms within a stent. This is a known complication, occurring in 4-6% of cases. If this happens again, we can use a drug-coated balloon to treat the scar tissue instead of placing another stent. This technology is available at our facility. - If you experience chest pain or other symptoms in the future, you may request to be transferred to our care for evaluation and treatment, provided the situation is not urgent. We reviewed your current medications: - Continue taking the following medications as prescribed: - Aspirin - Lisinopril 20 mg daily - Metoprolol 12.5 mg (half of a 25 mg tablet) daily - Simvastatin 20 mg daily - Clopidogrel (Plavix) 75 mg daily - These medications are essential for managing your coronary artery disease and preventing further complications. We discussed your cholesterol levels: - Your most recent cholesterol levels are within target range: - Total cholesterol: 169 - Triglycerides: 81 - LDL: 74 - Continue your current cholesterol management plan, including Simvastatin and a heart-healthy diet. We discussed your lifestyle and ongoing care: - Continue participating in cardiac rehabilitation and regular exercise. You are doing an excellent job staying active, which is critical for managing your condition. - Maintain a heart-healthy diet and avoid smoking and alcohol. - Coronary artery disease is not curable but is manageable with the right lifestyle and medication adherence. Follow-up plan: - I will see you again in 6 months for a follow-up visit. Please contact our office sooner if you experience any new or worsening symptoms, such as chest pain, shortness of breath, or swelling in your legs. Please continue taking all medications as prescribed, stay active, and let us know if you have any concerns before your next visit. Yessica Greene MD Follow up plannin months Electronically signed by Yessica Greene MD on February 18, 2025, 3:54 PM The above note was partially created using a dictation recognition software. A reasonable attempt has been made to correct any errors. [1] Social History Tobacco Use Smoking status: Never Smokeless tobacco: Never Cardiac stent palced on 12/13/2024 at [facility] by , Aj Turner 3.0mmx 12 mm, ref# [id number], Lot # [id number] exp 08/23/2027 documented in this encounter [facility] 02-18-2025 Note HNO ID: [id number] Author: ML VIZCAINO LPN Service: ? Author Type: Licensed Nurse Type: Progress Notes Filed: 02/18/2025 15:59 Note Text: Cardiac stent palced on 12/13/2024 at [facility] by , [place] Turner 3.0mmx 12 mm, ref# [id number], Lot # [id number] exp 08/23/2027 [facility] 12-14-2024 Discharge summary Note Date/Time December 14, 2024 9:50am [facility] Medical Records Department [address] [place] [address] Instructions for Home/Discharge Instructions 12/14/24 0943 MR#: [id number] Acct: [id number] Name: BEN ARROYO Rep #:[id number] : 1945 79 From: Ramón Qiu DO PCP: Dr. Adela Harley MD Status:ADM MAUREEN Discharge Instructions Diet Discharge Diet: No restrictions DC O2, CPAP, BIPAP needs Home O2 Discharge instructions: No Dressing / Incision Discharge Activity: Return to Normal Activity Weight Bearing Status: Full weight bearing Follow Up Care Test Results: Test results from this visit will be discussed in further detail at your follow-up appointment, if applicable. Discharge Plan Admission Admit Date/Time: 12/12/24 01:34 Primary Reason for Your Visit: Unstable angina Attending Provider: Ramón Qiu Primary Care Provider: Adela Harley Consulting Providers: Khanh Hernandez; Mary Anne Tijerina Discharge Orders/Prescriptions Prescriptions: New lisinopril 20 mg Tablet 20 mg PO DAILY Qty: 30 0RF clopidogrel 75 mg Tablet 75 mg PO DAILY Qty: 30 0RF carvedilol 3.125 mg Tablet 3.125 mg PO BID Qty: 60 0RF simvastatin 20 mg tablet 20 mg PO DAILY Qty: 30 0RF Continued estradiol 0.5 mg tablet 0.5 mg PO QHS Patient Comments: take 1 tablet by mouth once daily flaxseed oil 1,000 mg capsule 1,000 mg PO DAILY Rx Instructions: administer with meals cranberry fruit 400 mg capsule 400 mg PO DAILY Rx Instructions: administer with a meal aspirin 81 MG tablet,chewable 81 mg PO DAILY@0800 estradiol 42.5 GM cream 1 ea VAGINAL WE Patient Comments: INSERT 0.1 APPLICATIONS VAGINALLY ONCE A WEEK cholecalciferol (vitamin D3) 50 mcg (2,000 unit) capsule 50 mcg PO QDAY levothyroxine 50 mcg tablet 50 mcg PO DAILY nitroglycerin 0.4 mg tablet, sublingual 0.4 mg sublingual Q5M PRN (Reason: chest pain) Qty: 25 1RF Discontinued lisinopril 10 mg tablet See Rx Instructions .ROUTE .COMPLEX Qty: 135 3RF Dose Instruction: take 1 AND 1/2 tablets by mouth once daily Rx Instructions: take 1 AND 1/2 tablets by mouth once daily simvastatin 10 mg tablet 10 mg PO DAILY Qty: 90 3RF Referrals / Follow Up: Adela Harley MD [Primary Care Provider] - Khanh Hernandez MD [Med Staff - Active Staff] - Within 1 Month Disposition Disposition (needs filled in before D/C Order can be placed): Home, Self Care 12/14/24 0950<Electronically signed by Ramón Qiu DO>Ramón Qiu DO CC: Dr. Adela Harley MD; Dr. Mary Anne Tijerina DO; Dr. Khanh Hernandez MD ~ Signed [facility] Work Phone: 1(278) 213-397606-13-2025 Progress note [facility] Medical Records Department [address] [place] [id number] Progress Note - Cardiology 12/14/24 1106 MR#: [id number] Acct: [id number] Name: BEN ARROYO Rep #:[id number] : 1945 79 From: Oni Berry MD PCP: Dr. Adela Harley MD Status:ADM MAUREEN Location: ICU CVICU20 2-1 Subjective Subjective Has has no new complaints today. She wants to go home Objective Data Vital Signs: Vital Signs Temp Pulse Resp BP Pulse Ox O2 Del Method O2 Flow Rate 97.6 F L 74 16 136/66 H 97 Room Air 2 12/14/24 08:46 12/14/24 08:46 12/14/24 08:46 12/14/24 08:46 12/14/24 08:46 12/14/24 10:00 12/12/24 19:29 Oxygen Flow Rate (L/min) 2 Oxygen Delivery Method Room Air Weight: 92 lb 13.034 oz Body Mass Index (BMI) 18.4 Intake & Output: Intake and Output for Last 24 Hours 12/12/24 12/13/24 12/14/24 23:59 23:59 23:59 Intake Total 398.74 / 398.74 1240 / 1240 Output Total 560 / 560 Balance 398.74 / 398.74 680 / 680 Lab / Micro Data 12/14/24 06:07 12/14/24 06:07 Labs: Laboratory Results - last 24 hr 12/13/24 08:57: Activated Clotting Time 285 H 12/13/24 09:59: Activated Clotting Time 291 H 12/14/24 06:07: WBC 12.4 H, RBC 3.95 L, Hgb 11.5 L, Hct 33.4 L, MCV 84.6, MCH 29.1, MCHC 34.4, RDW Std Deviation 40.0, RDW Coeff of [place] 12.9, Plt Count 269, MPV 9.8, Sodium 130 L, Potassium 3.9, Chloride 99, Carbon Dioxide 18.5 L, Anion Gap 13, BUN 9, Creatinine 0.55 L, Estim Creat Clear Calc 39.14L, Est GFR (MDRD)Non-Af 95, BUN/Creatinine Ratio 16.2, Glucose 85, Calcium 8.7, Total Bilirubin 0.85, AST 44 H, ALT 12, Alkaline Phosphatase 54, Total Protein 6.6, Albumin 4.0,Globulin 2.7, Albumin/Globulin Ratio 1.5 Rhythm Strip Rhythm Strip: Sinus Rhythm Rate: 62 Cardiology Labs/Tests 12/14/24 06:07: WBC 12.4 H, RBC 3.95 L, Hgb 11.5 L, Hct 33.4 L, MCV 84.6, MCH 29.1, MCHC 34.4, Plt Count 269, MPV 9.8, Sodium 130 L, Potassium 3.9, Chloride 99, Carbon Dioxide 18.5 L, Anion Gap 13, BUN 9, Creatinine 0.55 L, Est GFR (MDRD) Non-Af 95, BUN/Creatinine Ratio 16.2, Glucose 85, Calcium 8.7, Total Bilirubin 0.85 Rhythm: EKG: ECHO: Stress Test: Cardiac Cath: PCI: CT Surgery: Holter monitor: EPS: PPM: CXR: Chest CT Scan: Physical Exam Narrative General?alert oriented HEENT- normal extraocular movements Neck supple no JVD Cardiovascular- normal S1-S2, no murmurs Pulmonary- clear to auscultation bilaterally Abdomen- soft to palpation, normal sounds Extremities- no edema Musculoskeletal- no tenderness no swelling Neurological -alert oriented Psych -normal affect Assessment & Plan Assessment/Plan (1) CAD (coronary artery disease): PLAN: Plan 1. Acute coronary syndrome-again patient underwent insertion of CARLENE with lithotripsy to the right coronary artery today. No chest pain no complaints. Will plan to discharge home today follow-up in the office. Continue aspirin statin Plavix 2 Essential [id number] 3 hyperlipidemia-patient is on a statin 4 hypothyroidism-patient is on Synthroid Plan follow-up in office. 12/14/24 1116 Cosigner Signature (if applicable): CC: ~ Signed [facility]06-13-2025 Discharge summary [facility] Medical Records Department [address] [place] [address] Instructions for Home/Discharge Instructions 12/14/24 0943 MR#: [id number] Acct: [id number] Name: BEN ARROYO Rep #:[id number] : 1945 79 From: Ramón Qiu DO PCP: Dr. Adela Harley MD Status:ADM MAUREEN Discharge Instructions Diet Discharge Diet: No restrictions DC O2, CPAP, BIPAP needs Home O2 Discharge instructions: No Dressing / Incision Discharge Activity: Return to Normal Activity Weight Bearing Status: Full weight bearing Follow Up Care Test Results: Test results from this visit will be discussed in further detail at your follow- up appointment, if applicable. Discharge Plan Admission Admit Date/Time: 12/12/24 01:34 Primary Reason for Your Visit: Unstable angina Attending Provider: Ramón Qiu Primary Care Provider: Adela Harley Consulting Providers: Khanh Hernandez; Mary Anne Tijerina Discharge Orders/Prescriptions Prescriptions: New lisinopril 20 mg Tablet 20 mg PO DAILY Qty: 30 0RF clopidogrel 75 mg Tablet 75 mg PO DAILY Qty: 30 0RF carvedilol 3.125 mg Tablet 3.125 mg PO BID Qty: 60 0RF simvastatin 20 mg tablet 20 mg PO DAILY Qty: 30 0RF Continued estradiol 0.5 mg tablet 0.5 mg PO QHS Patient Comments: take 1 tablet by mouth once daily flaxseed oil 1,000 mg capsule 1,000 mg PO DAILY Rx Instructions: administer with meals cranberry fruit 400 mg capsule 400 mg PO DAILY Rx Instructions: administer with a meal aspirin 81 MG tablet,chewable 81 mg PO DAILY@0800 estradiol 42.5 GM cream 1 ea VAGINAL WE Patient Comments: INSERT 0.1 APPLICATIONS VAGINALLY ONCE A WEEK cholecalciferol (vitamin D3) 50 mcg (2,000 unit) capsule 50 mcg PO QDAY levothyroxine 50 mcg tablet 50 mcg PO DAILY nitroglycerin 0.4 mg tablet, sublingual 0.4 mg sublingual Q5M PRN (Reason: chest pain) Qty: 25 1RF Discontinued lisinopril 10 mg tablet See Rx Instructions .ROUTE .COMPLEX Qty: 135 3RF Dose Instruction: take 1 AND 1/2 tablets by mouth once daily Rx Instructions: take 1 AND 1/2 tablets by mouth once daily simvastatin 10 mg tablet 10 mg PO DAILY Qty: 90 3RF Referrals / Follow Up: Adela Harley MD [Primary Care Provider] - Khanh Hernandez MD [Med Staff - Active Staff] - Within 1 Month Disposition Disposition (needs filled in before D/C Order can be placed): Home, Self Care 12/14/24 0950Ramón Qiu DO CC: Dr. Adela Harley MD; Dr. Mary Anne Tijerina DO; Dr. Khanh Hernandez MD ~ Signed [facility]06-13-2025 [facility] Medical Records Department [address] [place] [address] Discharge Summary 12/14/24 0950 MR#: [id number] Acct: [id number] Name: BEN ARROYO Rep #: [id number] : 1945 79 From: Ramón Qiu DO PCP: Dr. Adela Harley MD Status:DIS MAUREEN Location: ICU [id number] Providers Date of Admission: 12/12/24 Date of Discharge: 12/14/24 Primary Care Physician: Dr. Adela Harley MD Consultations 12/12/24 02:36 Consult: Cardiology Routine Consulting Provider: Khanh Hernandez Reason for Consult: unstable angina EMERGENT Consult: No MD Notified: Yes Date Notified: 12/12/24 Time Notified: 06:00 Method of Notification: Verbal Reason For Visit: UNSTABLE ANGINA Diagnosis Discharge Diagnosis (1) CAD (coronary artery disease): Status: Acute Code(s): I25.10 - Atherosclerotic heart disease of [place] coronary artery without angina pectoris Plan 1. Acute coronary syndrome/unstable angina-again patient underwent insertion of CARLENE with lithotripsy to the right coronary artery today. She is stable at this time #2 essential hypertension-blood pressure will be monitored and medicines will be adjusted as necessary #3 hyperlipidemia-patient is on a statin #4 hypothyroidism-patient is on Synthroid Total clinical time spent by myself addressing the patient's medical issue, reviewing all of her data, and collaborating with patient's care team: 35 minutes Medications at Discharge Home Medications aspirin 81 mg chewable tablet 81 mg PO DAILY@0800 heart 05/30/20 estradiol 0.01% (0.1 mg/gram) vaginal cream 1 ea vaginal WE supplement 05/30/20 estradiol 0.5 mg tablet 0.5 mg PO QHS 12/22/20 nitroglycerin 0.4 mg sublingual tablet 0.4 mg sublingual Q5M PRN chest pain #25 tabs 08/02/22 flaxseed oil 1,000 mg capsule 1,000 mg PO DAILY 11/01/23 cholecalciferol (vitamin D3) 50 mcg (2,000 unit) capsule 50 mcg PO QDAY supplement 05/08/24 cranberry fruit 400 mg capsule 400 mg PO DAILY 05/08/24 levothyroxine 50 mcg tablet 50 mcg PO DAILY 12/11/24 carvedilol 3.125 mg tablet 3.125 mg PO BID #60 tabs 12/14/24 clopidogrel 75 mg tablet 75 mg PO DAILY #30 tabs 12/14/24 lisinopril 20 mg tablet 20 mg PO DAILY #30 tabs 12/14/24 simvastatin 20 mg tablet 20 mg PO DAILY #30 tabs 12/14/24 Hospital Course Procedures Cardiac catheterization (With CARLENE placement in the right coronary artery) Summary of Care Provided Minutes Spent on Discharge: 32 Hospital Course: This 79-year-old white female was seen in the emergency room at [facility] with a chief complaint of chest pain. Patient stated that she was getting intermittent chest pain was notably with exertion over the past several months. Workup in the emergency room included a CBC which was unremarkable, chemistry profile showed a sodium of 128, glucose was 154. Patient's troponins were 18, 23, and at 4 hours 25. EKG showed normal sinus rhythm without ischemic changes and chest x-ray was unremarkable. Patient was felt to have unstable angina, she was placed into ICU as an observation, she had an echocardiogram performed which showed a normal ejection fraction, there is mild to moderate aortic valve regurg. Patient underwent a cardiac catheterization which revealed no occlusive disease in the right coronary artery inside a stent, lithotripsy was performed and another CARLENE was inserted. Patient had no complications from the intervention. On 12/13/2024, patient was seen and examined: On examination she appeared in good health and spirits, she does not appear to be in any distress. Vital signs as documented. Skin warm and dry and without overt rashes. Neck without JVD, thyroid appears normal, trachea is midline, neck is supple. Lungs clear, normal air movement was noted. Heart exam notable for regular rhythm, normal sounds and absence of murmurs, rubs or gallops. Abdomen unremarkable and without evidence of organomegaly, masses, or abdominal aortic enlargement, bowel sounds are present in all 4 quadrants, no abdominal tenderness was noted. Extremities nonedematous, no cyanosis was noted, no clubbing was noted. Neuro: Cranial nerves II through XII are grossly intact, no focal motor deficits were noted, sensation to light touch and pinprick is intact, motor exam 5/5 throughout. Psych: Patient is alert and oriented x3, she does not appear anxious or depressed, she does not appear agitated. Patient was felt to be stable for discharge home on 12/13/2024 Weight / BMI Weight Weight: 42.1 kg Body Mass Index (BMI) 18.4 ABG / Lab / Microbiology Data 12/14/24 06:07 12/14/24 06:07 Laboratory: Laboratory Results - last 24 hr 12/13/24 08:57: Activated Clotting Time 285 H 12/13/24 09:59: Activated Clotting Time 291 H 12/14/24 06:07: WBC 12.4 H, RBC 3.95 L, Hgb 11.5 L, Hct 33.4 L, MCV 84.6, MCH 29.1, MCHC 34.4, R (more content not included)...[facility] 12-13-2024 Progress note Author Ramón Qiu [facility] Note Date/Time December 13, 2024 6:49 pm [facility] Medical Records Department [address] [place] [address] Progress Note - Hospitalist 12/13/24 1845 MR#: [id number] Acct: [id number] Name: EBN ARROYO Rep #:[id number] : 1945 79 From: Ramón Qiu DO PCP: Dr. Adela Harley MD Status:ADM MAUREEN Location: ICU CVICU 2-1 Reason for Visit Reason for Visit: Diagnoses Malignant neoplasm of unspecified site of right female breast (12/12/24) Malignant neoplasm of unspecified site of left female breast (12/12/24) Pure hypercholesterolemia, unspecified (12/12/24) Essential (primary) hypertension (12/12/24) Atherosclerotic heart disease of [place] coronary artery without angina pectoris (12/12/24) Chest pain, unspecified (12/12/24) Other specified abnormal findings of blood chemistry (12/12/24) Subjective Subjective Patient was seen and examined today, she underwent a coronary angiogram today with insertion of a CARLENE in the right coronary artery and lithotripsy in the right coronary artery. Objective Data Objective Data Vital Signs: Vital Signs Temp Pulse Resp BP Pulse Ox O2 Del Method O2 Flow Rate 98.7 F 83 16 157/67 H 99 Room Air 2 12/13/24 16:42 12/13/24 16:42 12/13/24 16:42 12/13/24 16:42 12/13/24 16:42 12/13/24 16:42 12/12/24 19:29 Oxygen Flow Rate (L/min) 2 Oxygen Delivery Method Room Air Weight: 42.1 kg Body Mass Index (BMI) 18.4 Intake & Output: Intake and Output for Last 24 Hours 12/11/24 12/12/24 12/13/24 23:59 23:59 23:59 Intake Total 398.74 / 398.74 1240 / 1240 Output Total 560 / 560 Balance 398.74 / 398.74 680 / 680 Lab / Micro Data 12/13/24 03:39 12/13/24 03:39 Labs: Laboratory Results - last 24 hr 12/13/24 03:39: WBC 11.6 H, RBC 3.88 L, Hgb 11.2 L, Hct 32.8 L, MCV 84.5, MCH 28.9, MCHC 34.1, RDW Std Deviation 39.3, RDW Coeff of Niya 13.0, Plt Count 269, MPV 9.9, Immature Gran % (Auto) 0.300, Neut % (Auto) 72.2 H, Lymph % (Auto) 14.0L, [place] % (Auto) 12.6 H, Eos % (Auto) 0.5, Baso % (Auto) 0.4, Absolute Neuts (auto) 8.3 H, Absolute Lymphs (auto) 1.62, Nucleated RBC % 0, PT 13.3, INR 1.0, Sodium 129 L, Potassium 3.9, Chloride 97 L, Carbon Dioxide 19.2 L, Anion Gap 13,BUN 15, Creatinine 0.61 L, Estim Creat Clear Calc 39.14 L, Est GFR (MDRD) Non-Af92, BUN/Creatinine Ratio 25.1 H, Glucose 83, Calcium 8.9 12/13/24 08:57: Activated Clotting Time 285 H 12/13/24 09:59: Activated Clotting Time 291 H Rhythm Strip Rhythm Strip: Sinus Rhythm Rate: 62 Physical Exam Const alert, oriented x3 and no apparent distress General Appearance: cooperative, well kempt and well developed Orientation / Consciousness: awake, oriented to person, oriented to place and oriented to time HEENT normocephalic, head/scalp atraumatic and moist oral mucous membranes Eyes PERRL, EOMs intact bilaterally and conjunctivae normal Neck supple, no JVD, thyroid normal and no carotid bruits General: trachea midline Resp normal respiratory effort, no retractions, no use of accessory muscles and clearto auscultation bilaterally Auscultation: Negative for rales, rhonchi or wheezes Cardio regular rate, regular rhythm, S1 normal heart sound, S2 normal heart sound, no murmurs, no rub and no gallops GI normal to inspection, nondistended, normoactive bowel sounds, soft to palpation,non-tender and non-distended Extremity no clubbing, cyanosis or edema Skin no rashes or lesions noted General Skin Exam: no breakdown Neuro oriented x3, CN's II-XII intact bilaterally, no focal motor deficits and no sensory deficits noted Sensorium / Orientation: awake and alert Speech: speech normal Psych affect normal Assessment & Plan Assessment/Plan (1) CAD (coronary artery disease): PLAN: Plan 1. Acute coronary syndrome-again patient underwent insertion of CARLENE with lithotripsy to the right coronary artery today. She is stable at this time #2 essential hypertension-blood pressure will be monitored and medicines will beadjusted as necessary #3 hyperlipidemia-patient is on a statin #4 hypothyroidism-patient is on Synthroid Total clinical time spent by myself addressing the patient's medical issue, reviewing all of her data, and collaborating with patient's care team: 35 minutes Charges/Coding Visit Charges Inpatient E&M: 05523 Subs Hosp L2 12/13/241848 <Electronically signed by Ramón Qiu DO> Cosigner Signature (if applicable): CC: ~ Signed [facility] Work Phone: 1(553) 500-503206-12-2025 Progress note [facility] Medical Records Department [address] [place] [address] Progress Note - Hospitalist 12/13/241844 MR#: [id number] Acct: [id number] Name: BEN ARROYO Rep #:[id number] : 1945 79 From: Ramón Qiu DO PCP: Dr. Adela Harley MD Status:ADM MAUREEN Location: ICU CVICU20 2-1 Reason for Visit Reason for Visit: Diagnoses Malignant neoplasm of unspecified site of right female breast (12/12/24) Malignant neoplasm of unspecified site of left female breast (12/12/24) Pure hypercholesterolemia, unspecified (12/12/24) Essential (primary) hypertension (12/12/24) Atherosclerotic heart disease of [place] coronary artery without angina pectoris (12/12/24) Chest pain, unspecified (12/12/24) Other specified abnormal findings of blood chemistry (12/12/24) Subjective Subjective Patient was seen and examined today, she underwent a coronary angiogram today with insertion of a CARLENE in the right coronary artery and lithotripsy in the right coronary artery. Objective Data Objective Data Vital Signs: Vital Signs Temp Pulse Resp BP Pulse Ox O2 Del Method O2 Flow Rate 98.7 F 83 16 157/67 H 99 Room Air 2 12/13/24 16:42 12/13/24 16:42 12/13/24 16:42 12/13/24 16:42 12/13/24 16:42 12/13/24 16:42 12/12/24 19:29 Oxygen Flow Rate (L/min) 2 Oxygen Delivery Method Room Air Weight: 42.1 kg Body Mass Index (BMI) 18.4 Intake & Output: Intake and Output for Last 24 Hours 12/11/24 12/12/24 12/13/24 23:59 23:59 23:59 Intake Total 398.74 / 398.74 1240 / 1240 Output Total 560 / 560 Balance 398.74 / 398.74 680 / 680 Lab / Micro Data 12/13/24 03:39 12/13/24 03:39 Labs: Laboratory Results - last 24 hr 12/13/24 03:39: WBC 11.6 H, RBC 3.88 L, Hgb 11.2 L, Hct 32.8 L, MCV 84.5, MCH 28.9, MCHC 34.1, RDW Std Deviation 39.3, RDW Coeff of Niya 13.0, Plt Count 269, MPV 9.9, Immature Gran % (Auto) 0.300, Neut % (Auto) 72.2 H, Lymph % (Auto) 14.0L, [place] % (Auto) 12.6 H, Eos % (Auto) 0.5, Baso % (Auto) 0.4, Absolute Neuts (auto) 8.3 H, Absolute Lymphs (auto) 1.62, Nucleated RBC % 0, PT 13.3, INR 1.0, Sodium 129 L, Potassium 3.9, Chloride 97 L, Carbon Dioxide 19.2 L, Anion Gap 13,BUN 15, Creatinine 0.61 L, Estim Creat Clear Calc 39.14 L, Est GFR (MDRD) Non-Af92, BUN/Creatinine Ratio 25.1 H, Glucose 83, Calcium 8.9 12/13/24 08:57: Activated Clotting Time 285 H 12/13/24 09:59: Activated Clotting Time 291 H Rhythm Strip Rhythm Strip: Sinus Rhythm Rate: 62 Physical Exam Const alert, oriented x3 and no apparent distress General Appearance: cooperative, well kempt and well developed Orientation / Consciousness: awake, oriented to person, oriented to place and oriented to time HEENT normocephalic, head/scalp atraumatic and moist oral mucous membranes Eyes PERRL, EOMs intact bilaterally and conjunctivae normal Neck supple, no JVD, thyroid normal and no carotid bruits General: trachea midline Resp normal respiratory effort, no retractions, no use of accessory muscles and clearto auscultation bilaterally Auscultation: Negative for rales, rhonchi or wheezes Cardio regular rate, regular rhythm, S1 normal heart sound, S2 normal heart sound, no murmurs, no rub and no gallops GI normal to inspection, nondistended, normoactive bowel sounds, soft to palpation,non-tender and non-distended Extremity no clubbing, cyanosis or edema Skin no rashes or lesions noted General Skin Exam: no breakdown Neuro oriented x3, CN's II-XII intact bilaterally, no focal motor deficits and no sensory deficits noted Sensorium / Orientation: awake and alert Speech: speech normal Psych affect normal Assessment & Plan Assessment/Plan (1) CAD (coronary artery disease): PLAN: Plan 1. Acute coronary syndrome-again patient underwent insertion of CARLENE with lithotripsy to the right coronary artery today. She is stable at this time #2 essential hypertension-blood pressure will be monitored and medicines will beadjusted as necessary #3 hyperlipidemia-patient is on a statin #4 hypothyroidism-patient is on Synthroid Total clinical time spent by myself addressing the patient's medical issue, reviewing all of her data, and collaborating with patient's care team: 35 minutes Charges/Coding Visit Charges Inpatient E&M: 42170 Subs Hosp L2 12/13/24 6029 Cosigner Signature (if applicable): CC: ~ Signed [facility]06-12-2025 Progress note Author Khanh Hernandez [facility] Note Date/Time December 13, 2024 2:31 pm [facility] Medical Records Department [address] [place] [address] Progress Note - Cardiology [address] MR#: [id number] Acct: [id number] Name: BEN ARROYO Rep #:[id number] : 1945 79 From: Khanh Hernandez MD PCP: Dr. Adela Harley MD Status:ADM MAUREEN Location: ICU CVICU20 2-1 Subjective Subjective Patient's nuclear stress test was consistent with ischemia of the anterior wall. Given her known LAD disease and previous AUGUSTINE the LAD surgical intervention a left heart catheterization was recommended and will be performed this morning. Objective Data Vital Signs: Vital Signs Temp Pulse Resp BP Pulse Ox O2 Del Method O2 Flow Rate 98.3 F 62 14 107/90 H 98 Room Air 2 12/13/24 07:41 12/13/24 07:41 12/13/24 07:41 12/13/24 07:41 12/13/24 07:41 12/13/24 07:41 12/12/24 19:29 Oxygen Flow Rate (L/min) 2 Oxygen Delivery Method Room Air Weight: 92 lb 13.034 oz Body Mass Index (BMI) 18.4 Intake & Output: Intake and Output for Last 24 Hours 12/11/24 12/12/24 12/13/24 23:59 23:59 23:59 Intake Total 398.74 / 398.74 120 / 120 Output Total 560 / 560 Balance 398.74 / 398.74 -440 / -440 Lab / Micro Data 12/13/24 03:39 12/13/24 03:39 Labs: Laboratory Results - last 24 hr 12/13/24 03:39: WBC 11.6 H, RBC 3.88 L, Hgb 11.2 L, Hct 32.8 L, MCV 84.5, MCH 28.9, MCHC 34.1, RDW Std Deviation 39.3, RDW Coeff of Niya 13.0, Plt Count 269, MPV 9.9, Immature Gran % (Auto) 0.300, Neut % (Auto) 72.2 H, Lymph % (Auto) 14.0L, [place] % (Auto) 12.6 H, Eos % (Auto) 0.5, Baso % (Auto) 0.4, Absolute Neuts (auto) 8.3 H, Absolute Lymphs (auto) 1.62, Nucleated RBC % 0, PT 13.3, INR 1.0, Sodium 129 L, Potassium 3.9, Chloride 97 L, Carbon Dioxide 19.2 L, Anion Gap 13,BUN 15, Creatinine 0.61 L, Estim Creat Clear Calc 39.14 L, Est GFR (MDRD) Non-Af92, BUN/Creatinine Ratio 25.1 H, Glucose 83, Calcium 8.9 Rhythm Strip Rhythm Strip: Sinus Rhythm Rate: 62 Cardiology Labs/Tests 12/13/24 03:39: WBC 11.6 H, RBC 3.88 L, Hgb 11.2 L, Hct 32.8 L, MCV 84.5, MCH 28.9, MCHC 34.1, Plt Count 269, MPV 9.9, Immature Gran % (Auto) 0.300, Neut % (Auto) 72.2 H, Lymph % (Auto) 14.0 L, [place] % (Auto) 12.6 H, Eos % (Auto) 0.5, Baso % (Auto) 0.4, Absolute Neuts (auto) 8.3 H, Nucleated RBC % 0, PT 13.3, INR 1.0, Sodium 129 L, Potassium 3.9, Chloride 97 L, Carbon Dioxide 19.2 L, Anion Gap 13, BUN 15, Creatinine 0.61 L, Est GFR (MDRD) Non-Af 92, BUN/Creatinine Ratio 25.1 H, Glucose 83, Calcium 8.9 Rhythm: EKG: ECHO: Stress Test: Cardiac Cath: PCI: CT Surgery: Holter monitor: EPS: PPM: CXR: Chest CT Scan: Radiography Diagnostic Testing: Radiology Impression Echocardiogram 12/12/24 05:49 Interpretation Summary The study was technically difficult with suboptimal images. Posterior and inferior hypokinesis. Estimated LVEF 50%. Stage I diastolic dysfunction. Aneurysmal atrial septum. Moderately calcified aortic valve. Aortic valve sclerosis without stenosis. Mildto moderate aortic valve regurgitation. Ordering Physician: Mary Anne Tijerina Referring Physician: Adela Harley Performed By: Natalya Bonds, RDCS, RVT Physical Exam Narrative Tiny white female. Const alert and oriented x3 HEENT normocephalic Eyes EOMs intact bilaterally Neck no JVD Resp normal respiratory effort and clear to auscultation bilaterally Cardio Rate: regular rate Rhythm: regular rhythm Heart Sounds: S1 normal and S2 normal; Negative for click, gallop or murmur Peripheral Pulses: radial pulses present right 1+ and left 2+ and femoral pulsespresent right (Bruit auscultated) 1+ and left 2+ Extremity no pedal edema Neuro Neuro Narrative: Alert and oriented x 3 Psych mental status grossly normal Assessment & Plan Assessment/Plan (1) Uncontrolled hypertension: PLAN: Patient's blood pressures come under excellent control since hospitalization on her current medical therapy. (2) Chest pain: QUALIFIERS: Chest pain type: unspecified Qualified Code(s): R07.9- Chest pain, unspecified PLAN: Patient is chest discomfort has been somewhat atypical her enzymes were fairly positive but her Cardiolite stress test showed anterior ischemia on the nuclear pharmacologic test. The patient does have prominent breast implants butgiven the patient's chest symptoms, her enzymes, and her past medical history left heart catheterization was recommended and will be performed today. Further recommendations pending the outcome of the catheterization. Addendum patient's catheterization revealed a widely patent AUGUSTINE graft to the LAD. The circumflex lesion appeared identical to the old cath spam and at that time her FFR was negative. She did have a new restenotic disease in the ostium of the right coronary which was treated with shockwave balloon and subsequent in-stent restenosis stenting. The patient tolerated procedure well she should be able to be discharged to homein the next 24 hours. (3) Atherosclerosis of coronary artery of [place] heart without angina pectoris: QUALIFIERS: Coronary Disease-Associated Artery/Lesion type: nativeartery Qualified Code(s): I25.10 - Atherosclerotic heart disease of [place] coronary artery without angina pectoris PLAN: Patient is status post 3 interventions in the past she had an initial stent to the LAD and then subsequently underwent AUGUSTINE graft to the LAD by minimally invasive thoracotomy. She subsequently underwent complex stenting of the right coronary artery with shockwave balloon therapy due to heavy calcification in 2020. She also had a moderate lesion in the OM branch of the circumflex which had a negative FFR and has been treated medically. Pharmacologic stress test revealed anterior ischemia changes and a left heart catheterization is pending at this time. PLAN: Plan 1. Patient will be continued on dual antiplatelet therapy uninterrupted for 1 year. She now has multiple stents in this right coronary artery that are overlapping. 2. Patient should be able to be discharged to home in the next 24 hours. 3. Patient should follow-up with her primary vac press operator in 7 to 10 days. 4. Given the patient's HDL of 79 which is higher than her LDL of 74 I feel she should be continued on her home dose of simvastatin. Charges/Coding Visit Charges Inpatient E&M: 85937 Subs Hosp L3 12/13/24 1431 <Electronically signed by Khanh Hernandez MD> Cosigner Signature (if applicable): CC: ~ Signed [facility] Work Phone: 1(806) 311-530706-12-2025 Progress note [facility] Medical Records Department [address] [place] [address] Progress Note - Cardiology 12/13/24 0908 MR#: [id number] Acct: [id number] Name: BEN ARROYO Rep #:[id number] : 1945 79 From: Khanh Hernandez MD PCP: Dr. Adela Harley MD Status:ADM MAUREEN Location: ICU CVICU 2-1 Subjective Subjective Patient's nuclear stress test was consistent with ischemia of the anterior wall. Given her known LAD disease and previous AUGUSTINE the LAD surgical intervention a left heart catheterization was recommended and will be performed this morning. Objective Data Vital Signs: Vital Signs Temp Pulse Resp BP Pulse Ox O2 Del Method O2 Flow Rate 98.3 F 62 14 107/90 H 98 Room Air 2 12/13/24 07:41 12/13/24 07:41 12/13/24 07:41 12/13/24 07:41 12/13/24 07:41 12/13/24 07:41 12/12/24 19:29 Oxygen Flow Rate (L/min) 2 Oxygen Delivery Method Room Air Weight: 92 lb 13.034 oz Body Mass Index (BMI) 18.4 Intake & Output: Intake and Output for Last 24 Hours 12/11/24 12/12/24 12/13/24 23:59 23:59 23:59 Intake Total 398.74 / 398.74 120 / 120 Output Total 560 / 560 Balance 398.74 / 398.74 -440 / -440 Lab / Micro Data 12/13/24 03:39 12/13/24 03:39 Labs: Laboratory Results - last 24 hr 12/13/24 03:39: WBC 11.6 H, RBC 3.88 L, Hgb 11.2 L, Hct 32.8 L, MCV 84.5, MCH 28.9, MCHC 34.1, RDW Std Deviation 39.3, RDW Coeff of Niya 13.0, Plt Count 269, MPV 9.9, Immature Gran % (Auto) 0.300, Neut % (Auto) 72.2 H, Lymph % (Auto) 14.0L, [place] % (Auto) 12.6 H, Eos % (Auto) 0.5, Baso % (Auto) 0.4, Absolute Neuts (auto) 8.3 H, Absolute Lymphs (auto) 1.62, Nucleated RBC % 0, PT 13.3, INR 1.0, Sodium 129 L, Potassium 3.9, Chloride 97 L, Carbon Dioxide 19.2 L, Anion Gap 13,BUN 15, Creatinine 0.61 L, Estim Creat Clear Calc 39.14 L, Est GFR (MDRD) Non-Af92, BUN/Creatinine Ratio 25.1 H, Glucose 83, Calcium 8.9 Rhythm Strip Rhythm Strip: Sinus Rhythm Rate: 62 Cardiology Labs/Tests 12/13/24 03:39: WBC 11.6 H, RBC 3.88 L, Hgb 11.2 L, Hct 32.8 L, MCV 84.5, MCH 28.9, MCHC 34.1, Plt Count 269, MPV 9.9, Immature Gran % (Auto) 0.300, Neut % (Auto) 72.2 H, Lymph % (Auto) 14.0 L, [place] % (Auto) 12.6 H, Eos % (Auto) 0.5, Baso % (Auto) 0.4, Absolute Neuts (auto) 8.3 H, Nucleated RBC % 0, PT 13.3, INR 1.0, Sodium 129 L, Potassium 3.9, Chloride 97 L, Carbon Dioxide 19.2 L, Anion Gap 13,BUN 15, Creatinine 0.61 L, Est GFR (MDRD) Non-Af 92, BUN/Creatinine Ratio 25.1 H, Glucose 83, Calcium 8.9 Rhythm: EKG: ECHO: Stress Test: Cardiac Cath: PCI: CT Surgery: Holter monitor: EPS: PPM: CXR: Chest CT Scan: Radiography Diagnostic Testing: Radiology Impression Echocardiogram 12/12/24 05:49 Interpretation Summary The study was technically difficult with suboptimal images. Posterior and inferior hypokinesis. Estimated LVEF 50%. Stage I diastolic dysfunction. Aneurysmal atrial septum. Moderately calcified aortic valve. Aortic valve sclerosis without stenosis. Mildto moderate aortic valve regurgitation. Ordering Physician: Mary Anne Tijerina Referring Physician: Adela Harley Performed By: Natalya Bonds, EDGARD, RVT Physical Exam Narrative Tiny white female. Const alert and oriented x3 HEENT normocephalic Eyes EOMs intact bilaterally Neck no JVD Resp normal respiratory effort and clear to auscultation bilaterally Cardio Rate: regular rate Rhythm: regular rhythm Heart Sounds: S1 normal and S2 normal; Negative for click, gallop or murmur Peripheral Pulses: radial pulses present right 1+ and left 2+ and femoral pulsespresent right (Bruit auscultated) 1+ and left 2+ Extremity no pedal edema Neuro Neuro Narrative: Alert and oriented x 3 Psych mental status grossly normal Assessment & Plan Assessment/Plan (1) Uncontrolled hypertension: PLAN: Patient's blood pressures come under excellent control since hospitalization on her current medical therapy. (2) Chest pain: QUALIFIERS: Chest pain type: unspecified Qualified Code(s): R07.9- Chest pain, unspecified PLAN: Patient is chest discomfort has been somewhat atypical her enzymes were fairly positive but her Cardiolite stress test showed anterior ischemia on the nuclear pharmacologic test. The patient does have prominent breast implants butgiven the patient's chest symptoms, her enzymes, and her past medical history left heart catheterization was recommended and will be performed today. Further recommendations pending the outcome of the catheterization. Addendum patient's catheterization revealed a widely patent AUGUSTINE graft to the LAD. The circumflex lesion appeared identical to the old cath spam and at that time her FFR was negative. She did have a new restenotic disease in the ostium of the right coronary which was treated with shockwave balloon and subsequent in-stent restenosis stenting. The patient tolerated procedure well she should be able to be discharged to homein the next 24 hours. (3) Atherosclerosis of coronary artery of [place] heart without angina pectoris: QUALIFIERS: Coronary Disease-Associated Artery/Lesion type: nativeartery Qualified Code(s): I25.10 - Atherosclerotic heart disease of [place] coronary artery without angina pectoris PLAN: Patient is status post 3 interventions in the past she had an initial stent to the LAD and then subsequently underwent AUGUSTINE graft to the LAD by minimally invasive thoracotomy. She subsequently underwent complex stenting of the right coronary artery with shockwave balloon therapy due to heavy c alcification in 2020. She also had a moderate lesion in the OM branch of the circumflex which had anegative FFR and has been treated medically. Pharmacologic stress test revealed anterior ischemia changes and a left heart catheterization is pending at this time. PLAN: Plan 1. Patient will be continued on dual antiplatelet therapy uninterrupted for 1 year. She now has multiple stents in this right coronary artery that are overlapping. 2. Patient should be able to be discharged to home in the next 24 hours. 3. Patient should follow-up with her primary vac press operator in 7 to 10 days. 4. Given the patient's HDL of 79 which is higher than her LDL of 74 I feel she should be continued on her home dose of simvastatin. Charges/Coding Visit Charges Inpatient E&M: 09848 Subs Hosp L3 12/13/24 1431 Cosigner Signature (if applicable): CC: ~ Signed [facility]06-12-2025 Study report [facility] Cardiac Rehab [address] [place] [address] CR: Phase I Education Summary MR#: [id number] Acct: [id number] Name: BEN ARROYO Rep #:[id number] : 1945 79 From: Aicha Chou PCP: Dr. Adela Harley MD DOS: 12/12 General Education Discussed with Patient CAD and cardiac anatomy and function:: Patient communicates acknowledgment Explanation of diagnoses and procedures:: Patient communicates acknowledgment Sign/Symptoms of NV:: Patient communicates acknowledgment Antiplatelet therapy: Patient communicates acknowledgment Proper use of NTG-SL: Patient communicates acknowledgment Emergency procedures and activation of EMS: Patient communicates acknowledgment Compliance of all prescribed medications: Patient communicates acknowledgment Smoking Risk Factors Patient Nicotine/Smoking Risk Factors Are:: Never smoked Dyslipidemia Risk Factors Patient Dyslipidemia Risk Factors Are:: Total Cholesterol, Triglycerides, HDL and LDL Recommendations Recommendations Include:: Lipid profile not available, Reviewed NCEP/ATP guidelines and TherapeuticLifestyle Change dietary guidelines Response Code Dyslipidemia Response Code:: Patient communicates acknowledgment Overweight/Obesity Risk Factors Patient Overweight/Obesity Risk Factors Are:: BMI Normal [24-29 & > 65 years old] Recommendations Recommendations Include:: Weight loss of 5-10%, Reduced calorie diet and Exercise 5-7 times/week Response Code Overweight/Obesity:: Patient communicates acknowledgment Hypertension Recommendations Recommendations Include:: Maintain BP <130/85, DASH dietary guidelines, Decrease/maintain normalbody weight and Moderation of ETOH Response Code Hypertension:: Patient communicates acknowledgment Diabetes Risk Factors Patient Diabetes Risk Factors Are:: No documented hx of diabetes Metabolic Syndrome Recommendations Recommendations Include:: Does not meet criteria Sedentary Risk Factors Patient Sedentary Risk Factors Are:: Lack of regular exercise Recommendations Recommendations Include:: Aerobic exercise 5-7 times/week for 20-30 minutes continuously, Benefits of regular exercise, Discussed home walking program and Monitored Outpatient Cardiac Rehab Response Code Sedentary Response Code:: Patient communicates acknowledgment Stress Recommendations Recommendations Include:: Identification of stressors, and assessment of coping skills and Stress management techniques Response Code Stress Response Code:: Patient communicates acknowledgment 12/13/24 1333 Date Aicha Chou Outcome assessment reviewed. Exercise plan approved as documented. Treatment plan and goals support patient needs/abilities. Continue with current plan. I certify the patient demonstrates improvement and remains willing and capable of participation. the patient continues to benefit from cardiac rehab services/training. The patient may continue at current intensity, endurance andmodality and progress per protocol. Cosigner Signature: Date CC: ~ Signed [facility]06-11-2025 Progress note Author Ramón [facility] Note Date/Time December 12, 2024 6:22 pm [facility] Medical Records Department [address] [place] [address] Progress Note - Hospitalist 12/12/241819 MR#: [id number] Acct: [id number] Name: BEN ARROYO Rep #:[id number] : 1945 79 From: Ramón Qiu DO PCP: Dr. Adela Harley MD Status:ADM MAUREEN Location: ICU CVICU20 2-1 Hospitalist Note Patient was seen and examined briefly today, she underwent a resting nuclear stress test today which was positive for reversible ischemia. She will undergo a cardiac catheterization tomorrow. I talked with cardiology today about her care. Patient had a vasovagal episode after she was given some nitroglycerin when she had chest pain shortly after her stress test today, patient was given ahalf a milligram of atropine IV and IV fluid and recovered from the event. 12/12/241821 <Electronically signed by Ramón Qui DO> Cosigner Signature (if applicable): CC: ~ Signed [facility] Work Phone: 1(999) 562-326006-11-2025 Progress note [facility] Medical Records Department [address] [place] [address] Progress Note - Hospitalist 12/12/241819 MR#: [id number] Acct: [id number] Name: BEN ARROYO Rep #:[id number] : 1945 79 From: Ramón Qiu DO PCP: Dr. Adela Harley MD Status:ADM MAUREEN Location: ICU CVICU20 2-1 Hospitalist Note Patient was seen and examined briefly today, she underwent a resting nuclear stress test today which was positive for reversible ischemia. She will undergo a cardiac catheterization tomorrow. I talked with cardiology today about her care. Patient had a vasovagal episode after she was given some nitroglycerin when she had chest pain shortly after her stress test today, patient was given ahalf a milligram of atropine IV and IV fluid and recovered from the event. 12/12/241821 Cosigner Signature (if applicable): CC: ~ Signed [facility]06-11-2025 Consult note Author Khanh Hernandez [facility] Note Date/Time December 12, 2024 1:00 pm [facility] Medical Records Department [address] [place] [address] Consultation - Cardiology 12/12/2446 MR#: [id number] Acct: [id number] Name: BEN ARROYO Rep #:[id number] : 1945 79 From: Khanh Hernandez MD PCP: Dr. Adela Harley MD Status:ADM MAUREEN Location: ICU CVICU 2-1 Assessment & Plan Assessment/Plan (1) Uncontrolled hypertension: PLAN: Patient's blood pressure is markedly elevated when she admitted to the emergency department at 198/90. It is come under better control with IV nitro she is only on lisinopril 10 mg daily in her home environment. Renal function is normal the patient is intolerant to beta-ajit therapy. Shesaid it made her feel terrible. Would recommend avoiding diuretic therapy givenher history of hyponatremia. Following the results of the stress test we will determine the best option for medical therapy for hypertension. (2) Chest pain: QUALIFIERS: Chest pain type: unspecified Qualified Code(s): R07.9- Chest pain, unspecified PLAN: The chest symptoms sound potentially ischemic in nature. The patient has limited treatment options due to her previous interventions and risk of median sternotomy given her history of breast cancer. Would recommend we proceed with pharmacologic nuclear stress test. If the patient has significant ischemic burden then a left heart catheterization would be indicated. If there is a low level of ischemia I recommend a trial at medical therapy with long-acting nitrates and depending on her echo results potentially low-dose Coreg. If she has completely normal LV function or even LVH would trial amlodipine as an option. Would recommend continuing on lisinopril. (3) Atherosclerosis of coronary artery of [place] heart without angina pectoris: QUALIFIERS: Coronary Disease-Associated Artery/Lesion type: nativeartery Qualified Code(s): I25.10 - Atherosclerotic heart disease of [place] coronary artery without angina pectoris PLAN: Patient is status post 3 interventions in the past she had an initial stent to the LAD and then subsequently underwent AUGUSTINE graft to the LAD by minimally invasive thoracotomy. She subsequently underwent complex stenting of the right coronary artery with shockwave balloon therapy due to heavy calcification in 2020. She also had a moderate lesion in the OM branch of the circumflex which had a negative FFR and has been treated medically. Given her minimal enzyme changes troponin 18, 23, 25, would recommend that we proceed with pharmacologic nuclear stress test to define the amount of ischemic myocardium. Pending the outcome of that stress test further recommendations will be forthcoming. (4) Hyperlipidemia: QUALIFIERS: Hyperlipidemia type: pure hypercholesterolemia Qualified Code(s): E78.00 - Pure hypercholesterolemia, unspecified PLAN: Patient's lipids done on this admission total cholesterol was 169 triglycerides 81 LDL 74 HDL 79. The patient is currently on simvastatin 10 mg daily. Given her HDL of 79 the LDL of 74 appears to be acceptable in this 79-year-old. (5) Breast cancer: QUALIFIERS: Breast location: unspecified site of breast Estrogen receptor status: unspecified Patient sex: female Laterality: bilateral Qualified Code(s): C50.911 - Malignant neoplasm of unspecified site of right female breast; C50.912 - Malignant neoplasm of unspecified site of left female breast PLAN: Patient status post remote bilateral mastectomies and bilateral breast implants. It is unknown whether she received radiation therapy. PLAN: Plan 1. Recommend pharmacologic nuclear stress test. 2. Discontinue IV heparin and IV nitroglycerin. 3. Will start Imdur 30 mg daily this morning. 4. Further recommendations pending the results of the pharmacologic nuclear stress test. HPI Consult Data Date of Consult: 12/12/24 HPI Narrative Reason for Consultation: Chest pain with known coronary artery disease HPI Narrative: BEN ARROYO, is a 79 F who presents with several days of chest discomfort that have been progressive the symptoms occur with exertion and resolved with activity. She is also noted increasing fatigue and the symptoms appear to be worse than what she has had in the past with her anginal symptoms. The patient's ECG in the emergency department showed normal sinus rhythm at 71 bpm with PACs she had left axis deviation and a possible old septal NV with no acuteischemic changes. Troponins were essentially negative at 18, 23, and 25. The patient does have a long history of coronary artery disease in 1998 she underwent minimally invasive AUGUSTINE to the LAD due to bilateral breast implants status postmastectomy for breast cancer. It is unknown whether the patient had radiation therapy to her mediastinum. The patient subsequently in 2020 had a catheterization done which showed a patent AUGUSTINE to the LAD and significant disease in the heavily calcified dominant right coronary artery. There was moderate disease in the circumflex. Patient was transferred to [facility] where she went shockwave balloon therapy and overlapping stents to the dominant right coronary artery. An IFR of the circumflex was negative and it was treated medically. Echocardiogram prior to that intervention January 2021 showed an EF of 55% 1+ TR pulmonary artery systolic pressure was 28. Patient also carries a history of hypertension and her blood pressure was severely elevated in the emergency department at 198/90. She also has a historyof chronic hyponatremia and sodium runs in the 128 range. She also has a history of hyperlipidemia. The patient was admitted placed on IV nitro and heparin. She has had no recurrence of her chest symptoms. Patient's blood pressures come under better control at 135/69. The patient is not allergic to contrast and her renal function is normal. [facility] Medical History Unstable angina Breast cancer Osteopenia Hiatal hernia Osteoarthritis IBS (irritable bowel syndrome) History of hepatitis A Anemia Atherosclerosis of coronary artery of [place] heart without angina pectoris Essential hypertension GERD (gastroesophageal reflux disease) Anxiety Arthritis Hyperlipidemia Hypothyroidism Home Medications ?Medication ?Instructions ?Recorded ?Last Taken ?Type aspirin 81 mg chewable tablet 81 mg PO DAILY@0800 hear t 05/30/20 01/26/21 History estradiol 0.01% (0.1 mg/gram) 1 ea vaginal WE suppleme nt 05/30/20 05/28/20 History vaginal cream estradiol 0.5 mg tablet 0.5 mg PO QHS 12/22/20 Unkno wn History nitroglycerin 0.4 mg sublingual 0.4 mg sublingual Q5M PRN chest 08/02/22 Unknown Rx tablet pain #25 tabs flaxseed oil 1,000 mg capsule 1,000 mg PO DAILY Unknown History simvastatin 10 mg tablet 10 mg PO DAILY #90 tabs 08/27 Unknown Rx lisinopril 10 mg tablet See Rx Instructions .Route 0 03/12/24 Unknown Rx .COMPLEX #135 tabs cholecalciferol (vitamin D3) 50 50 mcg PO QDAY supplem ent 05/08/24 Unknown History mcg (2,000 unit) capsule cranberry fruit 400 mg capsule 400 mg PO DAILY 4 Unknown History levothyroxine 50 mcg tablet 50 mcg PO DAILY 12/11/24 U nknown History Allergy/AdvReac Type Severity Reaction Status Date / Time lactose AdvReac Upset Verified 12/11/24 18:34 Stomach metoprolol AdvReac dizziness Verified 12/11/24 18:34 Penicillins AdvReac Hives Verified 12/11/24 18:34 Family History Sister Breast cancer Grandmother Breast cancer Father CVA (cerebral vascular accident) Myocardial infarction Mother Parkinson's disease Brother Seizures CVA (cerebral vascular accident) Surgical History History of coronary artery stent placement (02/03/21) H/O coronary artery bypass surgery (06/16/99) History of left heart catheterization (01/26/21) History of bilateral breast implants History of shoulder surgery History of hammer toe correction History of bunionectomy History of cholecystectomy History of cataract surgery History of bilateral mastectomy History of right knee surgery History of hysterectomy Social History Smoking Status: Never smoker alcohol intake: never substance use type: does not use what type of physical activity do you participate in: walking frequency: 5-6 times per week ROS ROS Narrative Patient has a very flat affect. She is resting comfortably in recumbent position in bed in no apparent distress Constitutional Constitutional: Reports as per HPI Eyes Eyes: Reports systems reviewed and no addt'l complaints, except as documented ENT HEENT: Reports systems reviewed and no addt'l complaints, except as documented Cardiovascular Cardiovascular: Reports as per HPI Respiratory/Chest Respiratory/Chest: Reports as per HPI Gastrointestinal Gastrointestinal: Reports systems reviewed and no addt'l complaints, except as documented Genitourinary Genitourinary: Reports systems reviewed and no addt'l complaints, except as documented Musculoskeletal Musculoskeletal: Reports systems reviewed and no addt'l complaints, except as documented Integumentary Integumentary: Reports systems reviewed and no addt'l complaints, except as documented Neurologic Neurologic: Reports systems reviewed and no addt'l complaints, except as documented Psychiatric Psychiatric: Reports systems reviewed and no addt'l complaints, except as documented Endocrine Endocrinology: Reports systems reviewed and no addt'l complaints, except as documented Hematologic/Lymphatic Hematologic/Lymphatic: Reports systems reviewed and no addt'l complaints, exceptas documented Allergic/Immunologic Allergic/Immunologic: Reports as per HPI Physical Exam Const alert and oriented x3 HEENT normocephalic Eyes EOMs intact bilaterally Neck no JVD and no carotid bruits Chest Chest Narrative: Bilateral breast implants. Resp normal respiratory effort and clear to auscultation bilaterally Cardio Rate: regular rate Rhythm: regular rhythm Heart Sounds: S1 normal and S2 normal; Negative for click, gallop or murmur Peripheral Pulses: radial pulses present bilateral 2+ and posterior tibial pulses present bilateral 2+ GI normal to inspection, nondistended, normoactive bowel sounds Extremity no pedal edema Neuro Neuro Narrative: Alert and oriented x 3 Psych mental status grossly normal Risk Stratification Risk Stratification Applicable: Yes Age >/= 65: Yes >/= 3 CAD Risk Factors (HTN, HLD, DM, family hx of CAD, or current smoker): Yes Aspirin Use in the Past 7 Days: Yes Severe Angina (>/= episodes in 24 hours): No EKG ST Changes >/= 0.5mm: No Positive Cardiac Marker: Yes ALEX Risk Stratification Score: 4 ALEX % Risk: 20% Risk Charges/Coding Visit Charges Inpatient E&M: 05779 Init Hosp L3 Objective Data Vital Signs: Vital Signs Temp Pulse Resp BP Pulse Ox O2 Del Method 97.4 F L 64 14 135/69 H 99 Room Air 12/12/24 02:40 12/12/24 07:35 12/12/24 07:00 12/12/24 07:00 12/12/24 08:16 12/12/24 08:16 Oxygen Delivery Method Room Air Weight: 92 lb 13.034 oz Body Mass Index (BMI) 18.4 Intake & Output: Intake and Output for Last 24 Hours 12/10/24 12/11/24 12/12/24 23:59 23:59 23:59 Intake Total 38.74 / 38.74 Balance 38.74 / 38.74 Lab / Micro Data Attestation: I reviewed the patient's lab results. 12/12/24 02:55 12/12/24 02:55 Labs: Laboratory Results - last 24 hr 12/11/24 19:00: WBC 10.0, RBC 4.12 L, Hgb 11.8 L, Hct 35.0 L, MCV 85.0, MCH 28.6, MCHC 33.7, RDW Std Deviation 39.3, RDW Coeff of Niya 12.7, Plt Count 282, MPV 10.2, Immature Gran % (Auto) 0.500, Neut % (Auto) 72.9 H, Lymph % (Auto) 15.3 L, [place] % (Auto) 10.2 H, Eos % (Auto) 0.5, Baso % (Auto) 0.6, Absolute Neuts (auto) 7.3, Absolute Lymphs (auto) 1.53, Nucleated RBC % 0, Sodium 128 L, Potassium 4.1, Chloride 92 L, Carbon Dioxide 24.6, Anion Gap 12, BUN 18, Creatinine 0.74, Estim Creat Clear Calc 41.28 L, Est GFR (MDRD) Non-Af 84, BUN/Creatinine Ratio 24.0 H, Glucose 154 H, Calcium 9.5, Troponin T High Sens 18 H 12/11/24 20:58: Troponin T Hi Sens 2 Hr 23 H 12/11/24 22:46: Troponin T Hi Sens 4Hr 25 H 12/12/24 02:55: WBC 9.9, RBC 4.62, Hgb 13.2, Hct 38.5, MCV 83.3, MCH 28.6, MCHC 34.3, RDW Std Deviation 38.2, RDW Coeff of Niya 12.6, Plt Count 302, MPV 9.7, Immature Gran % (Auto) 0.500, Neut % (Auto) 72.0 H, Lymph % (Auto) 16.4 L, [place] % (Auto) 10.2 H, Eos % (Auto) 0.3, Baso % (Auto) 0.6, Absolute Neuts (auto) 7.1,Absolute Lymphs (auto) 1.62, Nucleated RBC % 0, PT 12.7, INR 0.9, APTT 33.7, Sodium 130 L, Potassium 4.4, Chloride 93 L, Carbon Dioxide 24.0, Anion Gap 13, BUN 13, Creatinine 0.68 L, Estim Creat Clear Calc 39.14 L, Est GFR (MDRD) Non-Af90, BUN/Creatinine Ratio 19.3, Glucose 99, Calcium 9.8, Phosphorus 3.0, Magnesium 1.9, Total Bilirubin 0.83, AST 31, ALT 13, Alkaline Phosphatase 63, Total Protein 8.0, Albumin 4.6, Globulin 3.4, Albumin/Globulin Ratio 1.4, Triglycerides 81, Cholesterol 169, LDL Cholesterol, Calc 74, VLDL Cholesterol 16, HDL Cholesterol 79, Cholesterol/HDL Ratio 2.15, TSH 3.690 Rhythm Strip Rhythm Strip: Sinus Rhythm Rate: 68 Cardiology Labs/Tests 12/11/24 19:00: WBC 10.0, RBC 4.12 L, Hgb 11.8 L, Hct 35.0 L, MCV 85.0, MCH 28.6, MCHC 33.7, Plt Count 282, MPV 10.2, Immature Gran % (Auto) 0.500, Neut % (Auto) 72.9 H, Lymph % (Auto) 15.3 L, [place] % (Auto) 10.2 H, Eos % (Auto) 0.5, Baso % (Auto) 0.6, Absolute Neuts (auto) 7.3, Nucleated RBC % 0, Sodium 128 L, Potassium 4.1, Chloride 92 L, Carbon Dioxide 24.6, Anion Gap 12, BUN 18, Creatinine 0.74, Est GFR (MDRD) Non-Af 84, BUN/Creatinine Ratio 24.0 H, Glucose 154 H, Calcium 9.5 12/12/24 02:55: WBC 9.9, RBC 4.62, Hgb 13.2, Hct 38.5, MCV 83.3, MCH 28.6, MCHC 34.3, Plt Count 302, MPV 9.7, Immature Gran % (Auto) 0.500, Neut % (Auto) 72.0 H, Lymph % (Auto) 16.4 L, [place] % (Auto) 10.2 H, Eos % (Auto) 0.3, Baso % (Auto) 0.6, Absolute Neuts (auto) 7.1, Nucleated RBC % 0, PT 12.7, INR 0.9, APTT 33.7, Sodium 130 L, Potassium 4.4, Chloride 93 L, Carbon Dioxide 24.0, Anion Gap 13, BUN 13, Creatinine 0.68 L, Est GFR (MDRD) Non-Af 90, BUN/Creatinine Ratio 19.3, Glucose 99, Calcium 9.8, Phosphorus 3.0, Magnesium 1.9, Total Bilirubin 0.83, Triglycerides 81, Cholesterol 169, VLDL Cholesterol 16, HDL Cholesterol 79, Cholesterol/HDL Ratio 2.15 Rhythm: EKG: ECHO: Stress Test: Cardiac Cath: PCI: CT Surgery: Holter monitor: EPS: PPM: CXR: Chest CT Scan: Radiography Diagnostic Testing: Radiology Impression Chest X-Ray 12/11/24 19:15 IMPRESSION: No acute cardiopulmonary abnormalities. Reading Location: [place] [address] 12/12/24 0904 <Electronically signed by Khanh Hernandez MD> Cosigner Signature (if applicable): CC: Dr. Adela Harley MD~ Signed ADDENDUM by Dr. Khanh Hernandez MD on 12/12/24 at 1300 Addendum The patient's pharmacologic nuclear stress test was positive for anterior wall ischemia at a moderate amount of ischemia. The patient carries a history of a AUGUSTINE to the LAD after an occlusion of the proximal stent to the LAD back in 1998. This was done through a minithoracotomy. Patient also carries a history of extensive stenting of a heavily calcified right coronary artery which shot balloon therapy at [facility] in 2020. And she had a moderate lesion in OM1 branch of the circumflex which had a negative FFR. Patient's left radial pulse is 2?3+, her right radial pulse is 1+, right femoralpulse is 1+ with a right femoral bruit. The left femoral pulses 2+. Patient will undergo a left heart catheterization tomorrow morning. The procedure risk/benefit and alternatives were explained to the patient in detail. Her DNR order will be rescinded for 48 hours. I discussed this in detail with the patient. 12/12/24 1300<Electronically signed by Khanh Hernandez MD> Cosigner Signature (if applicable): cc: Dr. Adela Harley MD ~* Signed [facility] Work Phone: 1(512) 626-927506-11-2025 Consult note [facility] Medical Records Department [address] [place] [address] Consultation - Cardiology 12/12/24 0846 MR#: [id number] Acct: [id number] Name: BEN ARROYO Rep #:[id number] : 1945 79 From: Khanh Hernandez MD PCP: Dr. Adela Harley MD Status:ADM MAUREEN Location: ICU CVICU20 2-1 Assessment & Plan Assessment/Plan (1) Uncontrolled hypertension: PLAN: Patient's blood pressure is markedly elevated when she admitted to the emergency department at 198/90. It is come under better control with IV nitro she [place] Renal function is normal the patient is intolerant to beta-ajit therapy. Shesaid it made her feel terrible. Would recommend avoiding diuretic therapy givenher history of hyponatremia. Following the results of the stress test we will determine the best option for medical therapy for hypertension. (2) Chest pain: QUALIFIERS: Chest pain type: unspecified Qualified Code(s): R07.9- Chest pain, unspecified PLAN: The chest symptoms sound potentially ischemic in nature. The patient has limited treatment options due to her previous interventions and risk of median sternotomy given her history of breast cancer. Would recommend we proceed with pharmacologic nuclear stress test. If the patient has significant ischemic burden then a left heart catheterization would be indicated. If there is a low level of ischemia I recommend a trial at medical therapy with long-acting nitrates and depending on her echo results potentially low-dose Coreg. If she has completely normal LV function or even LVH would trial amlodipine as an option. Would recommend continuing on lisinopril. (3) Atherosclerosis of coronary artery of [place] heart without angina pectoris: QUALIFIERS: Coronary Disease-Associated Artery/Lesion type: nativeartery Qualified Code(s): I25.10 - Atherosclerotic heart disease of [place] coronary artery without angina pectoris PLAN: Patient is status post 3 interventions in the past she had an initial stent to the LAD and then subsequently underwent AUGUSTINE graft to the LAD by minimally invasive thoracotomy. She subsequently underwent complex stenting of the right coronary artery with shockwave balloon therapy due to heavy c alcification in 2020. She also had a moderate lesion in the OM branch of the circumflex which had anegative FFR and has been treated medically. Given her minimal enzyme changes troponin 18, 23, 25, would recommend that we proceed with pharmacologic nuclear stress test to define the amount of ischemic myocardium. Pending the outcome of that stress test further recommendations will be forthcoming. (4) Hyperlipidemia: QUALIFIERS: Hyperlipidemia type: pure hypercholesterolemia Qualified Code(s): E78.00 - Pure hypercholesterolemia, unspecified PLAN: Patient's lipids done on this admission total cholesterol was 169 triglycerides 81 LDL 74 HDL79. The patient is currently on simvastatin 10 mg daily. Given her HDL of 79 the LDL of 74 appears to be acceptable in this 79-year-old. (5) Breast cancer: QUALIFIERS: Breast location: unspecified site of breast Estrogen receptor status: unspecified Patient sex: female Laterality: bilateral Qualified Code(s): C50.911 - Malignant neoplasm of unspecified site of right female breast; C50.912 - Malignant neoplasm of unspecified site of left female breast PLAN: Patient status post remote bilateral mastectomies and bilateral breast implants. It is unknown whether she received radiation therapy. PLAN: Plan 1. Recommend pharmacologic nuclear stress test. 2. Discontinue IV heparin and IV nitroglycerin. 3. Will start Imdur 30 mg daily this morning. 4. Further recommendations pending the results of the pharmacologic nuclear stress test. HPI Consult Data Date of Consult: 12/12/24 HPI Narrative Reason for Consultation: Chest pain with known coronary artery disease HPI Narrative: BEN ARROYO, is a 79 F who presents with several days of chest discomfort that have been progressive the symptoms occur with exertion and resolved with activity. She is also noted increasing fatigue and the symptoms appear to be worse than what she has had in the past with her anginal symptoms.The patient's ECG in the emergency department showed normal sinus rhythm at 71 bpm with PACs she had left axis deviation and a possible old septal NV with no acuteischemic changes. Troponins were essentially negative at 18, 23, and 25. The patient does have a long history of coronary artery disease in 1998 she underwent minimally invasive AUGUSTINE to the LAD due to bilateral breast implants status postmastectomy for breast cancer. It is unknown whether the patient had radiation therapy to her mediastinum. The patient subsequently in 2020 had a catheterization done which showed a patent AUGUSTINE to the LAD and significant disease in theheavily calcified dominant right coronary artery. There was moderate disease in the circumflex. Patient was transferred to [facility] where she went shockwave balloon therapy and overlapping stents to the dominant right coronary artery. An IFR of the circumflex was negative and itwas treated medically. Echocardiogram prior to that intervention January 2021 showed an EF of 55% 1+ TR pulmonary artery systolic pressure was 28. Patient also carries a history of hypertension and her blood pressure was severely elevated in the emergency department at 198/90. She also has a historyof chronic hyponatremia and sodium runs in [id number] range. She also has a history of hyperlipidemia. The patient was admitted placed on IV nitro and heparin. She has had no recurrence of her chest symptoms. Patient's blood pressures come under better control at 135/69. The patient is not allergic tocontrast and her renal function is normal. [facility] Medical History Unstable angina Breast cancer Osteopenia Hiatal hernia Osteoarthritis IBS (irritable bowel syndrome) History of hepatitis A Anemia Atherosclerosis of coronary artery of [place] heart without angina pectoris Essential hypertension GERD (gastroesophageal reflux disease) Anxiety Arthritis Hyperlipidemia Hypothyroidism Home Medications ?Medication ?Instructions ?Recorded ?Last Taken ?Type aspirin 81 mg chewable tablet 81 mg PO DAILY@0800 hear t 05/30/20 01/26/21 History estradiol 0.01% (0.1 mg/gram) 1 ea vaginal WE suppleme nt 05/30/20 05/28/20 History vaginal cream estradiol 0.5 mg tablet 0.5 mg PO QHS 12/22/20 Unkno wn History nitroglycerin 0.4 mg sublingual 0.4 mg sublingual Q5M PRN chest 08/02/22 Unknown Rx tablet pain #25 tabs flaxseed oil 1,000 mg capsule 1,000 mg PO DAILY Unknown History simvastatin 10 mg tablet 10 mg PO DAILY #90 tabs 08/27 Unknown Rx lisinopril 10 mg tablet See Rx Instructions .Route 0 03/12/24 Unknown Rx .COMPLEX #135 tabs cholecalciferol (vitamin D3) 50 50 mcg PO QDAY supplem ent 05/08/24 Unknown History mcg (2,000 unit) capsule cranberry fruit 400 mg capsule 400 mg PO DAILY 4 Unknown History levothyroxine 50 mcg tablet 50 mcg PO DAILY 12/11/24 U nknown History Allergy/AdvReac Type Severity Reaction Status Date / Time lactose AdvReac Upset Verified 12/11/24 18:34 Stomach metoprolol AdvReac dizziness Verified 12/11/24 18:34 Penicillins AdvReac Hives Verified 12/11/24 18:34 Family History Sister Breast cancer Grandmother Breast cancer Father CVA (cerebral vascular accident) Myocardial infarction Mother Parkinson's disease Brother Seizures CVA (cerebral vascular accident) Surgical History History of coronary artery stent placement (02/03/21) H/O coronary artery bypass surgery (06/16/99) History of left heart catheterization (01/26/21) History of bilateral breast implants History of shoulder surgery History of hammer toe correction History of bunionectomy History of cholecystectomy History of cataract surgery History of bilateral mastectomy History of right knee surgery History of hysterectomy Social History Smoking Status: Never smoker alcohol intake: never substance use type: does not use what type of physical activity do you participate in: walking frequency: 5-6 times per week ROS ROS Narrative Patient has a very flat affect. She is resting comfortably in recumbent position in bed in no apparent distress Constitutional Constitutional: Reports as per HPI Eyes Eyes: Reports systems reviewed and no addt'l complaints, except as documented ENT HEENT: Reports systems reviewed and no addt'l complaints, except as documented Cardiovascular Cardiovascular: Reports as per HPI Respiratory/Chest Respiratory/Chest: Reports as per HPI Gastrointestinal Gastrointestinal: Reports systems reviewed and no addt'l complaints, except as documented Genitourinary Genitourinary: Reports systems reviewed and no addt'l complaints, except as documented Musculoskeletal Musculoskeletal: Reports systems reviewed and no addt'l complaints, except as documented Integumentary Integumentary: Reports systems reviewed and no addt'l complaints, except as documented Neurologic Neurologic: Reports systems reviewed and no addt'l complaints, except as documented Psychiatric Psychiatric: Reports systems reviewed and no addt'l complaints, except as documented Endocrine Endocrinology: Reports systems reviewed and no addt'l complaints, except as documented Hematologic/Lymphatic Hematologic/Lymphatic: Reports systems reviewed and no addt'l complaints, exceptas documented Allergic/Immunologic Allergic/Immunologic: Reports as per HPI Physical Exam Const alert and oriented x3 HEENT normocephalic Eyes EOMs intact bilaterally Neck no JVD and no carotid bruits Chest Chest Narrative: Bilateral breast implants. Resp normal respiratory effort and clear to auscultation bilaterally Cardio Rate: regular rate Rhythm: regular rhythm Heart Sounds: S1 normal and S2 normal; Negative for click, gallop or murmur Peripheral Pulses: radial pulses present bilateral 2+ and posterior tibial pulses present bilateral2+ GI normal to inspection, nondistended, normoactive bowel sounds Extremity no pedal edema Neuro Neuro Narrative: Alert and oriented x 3 Psych mental status grossly normal Risk Stratification Risk Stratification Applicable: Yes Age >/= 65: Yes >/= 3 CAD Risk Factors (HTN, HLD, DM, family hx of CAD, or current smoker): Yes Aspirin Use in the Past 7 Days: Yes Severe Angina (>/= episodes in 24 hours): No EKG ST Changes >/= 0.5mm: No Positive Cardiac Marker: Yes ALEX Risk Stratification Score: 4 ALEX % Risk: 20% Risk Charges/Coding Visit Charges Inpatient E&M: 77174 Init Hosp L3 Objective Data Vital Signs: Vital Signs Temp Pulse Resp BP Pulse Ox O2 Del Method 97.4 F L 64 14 135/69 H 99 Room Air 12/12/24 02:40 12/12/24 07:35 12/12/24 07:00 12/12/24 07:00 12/12/24 08:16 12/12/24 08:16 Oxygen Delivery Method Room Air Weight: 92 lb 13.034 oz Body Mass Index (BMI) 18.4 Intake & Output: Intake and Output for Last 24 Hours 12/10/24 12/11/24 12/12/24 23:59 23:59 23:59 Intake Total 38.74 / 38.74 Balance 38.74 / 38.74 Lab / Micro Data Attestation: I reviewed the patient's lab results. 12/12/24 02:55 12/12/24 02:55 Labs: Laboratory Results - last 24 hr 12/11/24 19:00: WBC 10.0, RBC 4.12 L, Hgb 11.8 L, Hct 35.0 L, MCV 85.0, MCH 28.6, MCHC 33.7, RDW Std Deviation 39.3, RDW Coeff of Niya 12.7, Plt Count 282, MPV 10.2, Immature Gran % (Auto) 0.500, Neut% (Auto) 72.9 H, Lymph % (Auto) 15.3 L, [place] % (Auto) 10.2 H, Eos % (Auto) 0.5, Baso % (Auto) 0.6, Absolute Neuts (auto) 7.3, Absolute Lymphs (auto) 1.53, Nucleated RBC % 0, Sodium 128 L, Potassium 4.1, Chloride 92 L, Carbon Dioxide 24.6, Anion Gap 12, BUN 18, Creatinine 0.74, Estim Creat Clear Calc 41.28 L, Est GFR (MDRD) Non-Af 84, BUN/Creatinine Ratio 24.0 H, Glucose 154 H, Calcium 9.5, Troponin T High Sens 18 H 12/11/24 20:58: Troponin T Hi Sens 2 Hr 23 H 12/11/24 22:46: Troponin T Hi Sens 4Hr 25 H 12/12/24 02:55: WBC 9.9, RBC 4.62, Hgb 13.2, Hct 38.5, MCV 83.3, MCH 28.6, MCHC 34.3, RDW Std Deviation 38.2, RDW Coeff of Niya 12.6, Plt Count 302, MPV 9.7, Immature Gran % (Auto) 0.500, Neut % (Auto) 72.0 H, Lymph % (Auto) 16.4 L, [place] % (Auto) 10.2 H, Eos % (Auto) 0.3, Baso % (Auto) 0.6, AbsoluteNeuts (auto) 7.1,Absolute Lymphs (auto) 1.62, Nucleated RBC % 0, PT 12.7, INR 0.9, APTT 33.7, Sodium 130 L, Potassium 4.4, Chloride 93 L, Carbon Dioxide 24.0, Anion Gap 13, BUN 13, Creatinine 0.68 L,Estim Creat Clear Calc 39.14 L, Est GFR (MDRD) Non- Af90, BUN/Creatinine Ratio 19.3, Glucose 99, Calcium 9.8, Phosphorus 3.0, Magnesium 1.9, Total Bilirubin 0.83, AST 31, ALT 13, Alkaline Phosphatase 63, Total Protein 8.0, Albumin 4.6, Globulin 3.4, Albumin/Globulin Ratio 1.4, Triglycerides 81, Cholesterol 169, LDL Cholesterol, Calc 74, VLDL Cholesterol 16, HDL Cholesterol 79, Cholesterol/HDL Ratio 2.15, TSH 3.690 Rhythm Strip Rhythm Strip: Sinus Rhythm Rate: 68 Cardiology Labs/Tests 12/11/24 19:00: WBC 10.0, RBC 4.12 L, Hgb 11.8 L, Hct 35.0 L, MCV 85.0, MCH 28.6, MCHC 33.7, Plt Count 282, MPV 10.2, Immature Gran % (Auto) 0.500, Neut % (Auto) 72.9 H, Lymph % (Auto) 15.3 L, [place] %(Auto) 10.2 H, Eos % (Auto) 0.5, Baso % (Auto) 0.6, Absolute Neuts (auto) 7.3, Nucleated RBC % 0, Sodium 128 L, Potassium 4.1, Chloride 92 L, Carbon Dioxide 24.6, Anion Gap 12, BUN 18, Creatinine 0.74, Est GFR (MDRD) Non-Af 84, BUN/Creatinine Ratio 24.0 H, Glucose 154 H, Calcium 9.5 12/12/24 02:55: WBC 9.9, RBC 4.62, Hgb 13.2, Hct 38.5, MCV 83.3, MCH 28.6, MCHC 34.3, Plt Count 302, MPV 9.7, Immature Gran % (Auto) 0.500, Neut % (Auto) 72.0 H, Lymph % (Auto) 16.4 L, [place] % (Auto) 10.2 H, Eos % (Auto) 0.3, Baso % (Auto) 0.6, Absolute Neuts (auto) 7.1, Nucleated RBC % 0, PT 12.7, INR 0.9, APTT 33.7, Sodium 130 L, Potassium 4.4, Chloride 93 L, Carbon Dioxide 24.0, Anion Gap 13, BUN 13, Creatinine 0.68 L, Est GFR (MDRD) Non-Af 90, BUN/Creatinine Ratio 19.3, Glucose 99, Calcium 9.8, Phosphorus 3.0, Magnesium 1.9, Total Bilirubin 0.83, Triglycerides 81, Cholesterol 169, VLDL Cholesterol 16, HDL Cholesterol 79, Cholesterol/HDL Ratio 2.15 Rhythm: EKG: ECHO: Stress Test: Cardiac Cath: PCI: CT Surgery: Holter monitor: EPS: PPM: CXR: Chest CT Scan: Radiography Diagnostic Testing: Radiology Impression Chest X-Ray 12/11/24 19:15 IMPRESSION: No acute cardiopulmonary abnormalities. Reading Location: [place] [address] 12/12/24 0904 Cosigner Signature (if applicable): CC: Dr. Adela Harley MD~ Signed ADDENDUM by Dr. Khanh Hernandez MD on 12/12/24 at 1300 Addendum The patient's pharmacologic nuclear stress test was positive for anterior wall ischemia at a moderate amount of ischemia. The patient carries a history of a AUGUSTINE to the LAD after an occlusion of the proximal stent to the LAD back in 1998. This was done through a minithoracotomy. Patient also carries a history of extensive stenting of a heavily calcified right coronary artery which shot balloon therapy at [facility] in 2020. And she had a moderate lesion in OM1 branch of the circumflex which had a negative FFR. Patient's left radial pulse is 2?3+, her right radial pulse is 1+, right femoralpulse is 1+ with a right femoral bruit. The left femoral pulses 2+. Patient will undergo a left heart catheterization tomorrow morning. The procedure risk/benefit and alternatives were explained to the patient in detail. Her DNR order will be rescinded for 48 hours. I discussed this in detail with the patient. 12/12/24 1300 Cosigner Signature (if applicable): cc: Dr. Adela Harley MD ~* Signed [facility]06-11-2025 History and physical note Author Mary Anne Tijerina [facility] Note Date/Time December 12, 2024 3:36 am [facility] Medical Records Department [address] [place] [id number] H&P Exam - Hospitalist 12/12/24 0129 MR#: [id number] Acct: [id number] Name: BEN ARROYO Rep #:[id number] : 1945 79 From: Mary Anne Tijerina DO PCP: Dr. Adela Harley MD Status:ADM MAUREEN Location: ICU CVICU20 2-1 HPI - General General Date of Admission: 12/12/24 Date of Service: 12/12/24 Chief Complaint: Chest pain HPI Narrative BEN ARROYO, is a 79 F who presented to the emergency department [facility] on 12/11/2024 with chief complaint of chest pain. Patient hasa strong history of coronary disease with previous bypass and stents. Current heart score is 7. She states she has been getting intermittent chest pain most notably with exertion. She has had increased fatigue and weakness over the last4 months or so with gradually progressive anginal type symptoms. She states over the last day she has felt fairly poorly and symptoms are consistent but more severe than her previous experience anginal equivalents. As noted, chest pain is predominantly exertional and does seem to micheal some with rest but does not sound like it is completely resolved. She also has associated shortness of breath, nausea, and diaphoresis. She states the pain is pressure-like and substernal. She did get relief with nitroglycerin at home and in the emergency department. Vital signs on presentation showed a temperature of 98.3, heart rate 70, respiratory rate 18, blood pressure was 198/90 and pulse ox was 100% on room air. CBC was overtly unremarkable. Chemistry panel showed hyponatremia at 128. She does have chronic hyponatremia and this is within the realm of her baseline. Your creatinine within normal limits. Glucose was 154 nonfasting. Initial troponin was 18 with a delta of 23 and a 4-hour troponin of 25. EKG is not suggestive of acute ischemia. Chest x- ray is unremarkable. Patient story is strongly suggestive of unstable angina. At the time of my evaluation she was still having some mild substernal chest discomfort so we willplace her on a nitro drip and a heparin drip and consult cardiology for anticipated cardiac catheterization. [facility] Medical History Unstable angina Breast cancer Osteopenia Hiatal hernia Osteoarthritis IBS (irritable bowel syndrome) History of hepatitis A Anemia Atherosclerosis of coronary artery of [place] heart without angina pectoris Essential hypertension GERD (gastroesophageal reflux disease) Anxiety Arthritis Hyperlipidemia Hypothyroidism Home Medications ?Medication ?Instructions ?Recorded ?Last Taken ?Type aspirin 81 mg chewable tablet 81 mg PO DAILY@0800 hear t 05/30/20 01/26/21 History estradiol 0.01% (0.1 mg/gram) 1 ea vaginal WE suppleme nt 05/30/20 05/28/20 History vaginal cream estradiol 0.5 mg tablet 0.5 mg PO QHS 12/22/20 Unkno wn History nitroglycerin 0.4 mg sublingual 0.4 mg sublingual Q5M PRN chest 08/02/22 Unknown Rx tablet pain #25 tabs flaxseed oil 1,000 mg capsule 1,000 mg PO DAILY Unknown History simvastatin 10 mg tablet 10 mg PO DAILY #90 tabs 08/27 Unknown Rx lisinopril 10 mg tablet See Rx Instructions .Route 0 03/12/24 Unknown Rx .COMPLEX #135 tabs cholecalciferol (vitamin D3) 50 50 mcg PO QDAY supplem ent 05/08/24 Unknown History mcg (2,000 unit) capsule cranberry fruit 400 mg capsule 400 mg PO DAILY 4 Unknown History levothyroxine 50 mcg tablet 50 mcg PO DAILY 12/11/24 U nknown History Allergy/AdvReac Type Severity Reaction Status Date / Time lactose AdvReac Upset Verified 12/11/24 18:34 Stomach metoprolol AdvReac dizziness Verified 12/11/24 18:34 Penicillins AdvReac Hives Verified 12/11/24 18:34 Family History Sister Breast cancer Grandmother Breast cancer Father CVA (cerebral vascular accident) Myocardial infarction Mother Parkinson's disease Brother Seizures CVA (cerebral vascular accident) Surgical History History of coronary artery stent placement (02/03/21) H/O coronary artery bypass surgery (06/16/99) History of left heart catheterization (01/26/21) History of bilateral breast implants History of shoulder surgery History of hammer toe correction History of bunionectomy History of cholecystectomy History of cataract surgery History of bilateral mastectomy History of right knee surgery History of hysterectomy Social History Smoking Status: Never smoker alcohol intake: never substance use type: does not use what type of physical activity do you participate in: walking frequency: 5-6 times per week ROS Constitutional Constitutional: Reports fatigue, malaise and weakness; Denies anorexia, change in weight, chills, fever(s), night sweats or other Eyes Eyes: Denies blurry vision, change in eye color, change in vision, discharge from eye(s), double vision, erythema, eye pain, loss of vision or other ENT HEENT: Denies abnormal hearing, dysphagia, ear pain, epistaxis, headache(s), hearing loss, nasal congestion, nasal discharge, post nasal drip, sinus pressure, sore throat or other Cardiovascular Cardiovascular: Reports chest pain and other Details: Presyncope and diaphoresis; Denies claudication, dyspnea on exertion, edema, lightheadedness, orthopnea, palpitations, paroxysmal nocturnal dyspnea, rapid heart rate or syncope Respiratory/Chest Respiratory/Chest: Reports dyspnea; Denies cough, excessive phlegm production, hemoptysis, productive cough, shortness of breath at rest, shortness of breath with exertion, wheezing or other Gastrointestinal Gastrointestinal: Reports nausea; Denies abdominal pain, coffee ground emesis, constipation, diarrhea, dyspepsia, hematemesis, hematochezia, loose stools, melena, vomiting or other Genitourinary Genitourinary: Denies burning urination, difficulty urinating, dysuria, hematuria, nocturia, urinary frequency, urinary hesitancy, urinary incontinence,urinary urgency or other Musculoskeletal Musculoskeletal: Denies arthralgias, back pain, joint pain, joint stiffness, joint swelling, myalgias, neck pain or other Neurologic Neurologic: Denies abnormal gait, abnormal speech, confusion, disequilibrium, dizziness, focal weakness, headache(s), numbness, paresthesias, seizure-like activity, seizures, syncope, tingling, tremor(s) or other Psychiatric Psychiatric: Denies anxiety, depression, homicidal ideation, suicidal ideation or other Endocrine Endocrinology: Denies change in body appearance, cold intolerance, excessive sweating, heat intolerance, polydipsia, polyuria or other Hematologic/Lymphatic Hematologic/Lymphatic: Denies anemia, easy bleeding, easy bruising, lymphadenopathy or other Allergic/Immunologic Allergic/Immunologic: Denies rhinitis, hives, eczemia, asthma or other Vital Signs Vital Signs Vital Signs: 12/11/24 18:34 12/11/24 19:28 12/11/24 19:29 Temperature 98.3 F Temperature Source Oral Pulse Rate 70 Respiratory Rate 18 Respiratory Effort Normal Non-Labored Blood Pressure 198/90 H Blood Pressure Mean 126 Pulse Ox 100 Oxygen Delivery Method Room Air Room Air 12/11/24 19:31 12/11/24 20:00 12/11/24 20:53 Temperature Temperature Source Pulse Rate 65 72 67 Respiratory Rate 12 11 L Respiratory Effort Blood Pressure 168/76 H 174/82 H 181/74 H Blood Pressure Mean 106 112 109 Pulse Ox 100 100 100 Oxygen Delivery Method Room Air Room Air 12/11/24 21:08 12/11/24 21:50 12/11/24 22:05 Temperature Temperature Source Pulse Rate 60 78 61 Respiratory Rate 16 18 Respiratory Effort Blood Pressure 187/74 H 140/97 H 144/73 H Blood Pressure Mean 111 96 Pulse Ox 99 98 Oxygen Delivery Method Room Air Room Air 12/12/24 00:00 12/12/24 01:00 12/12/24 01:06 Temperature 98.5 F Temperature Source Pulse Rate 61 60 59 L Respiratory Rate 15 15 15 Respiratory Effort Blood Pressure 160/75 H 156/73 H 156/73 H Blood Pressure Mean 103 100 100 Pulse Ox 99 99 99 Oxygen Delivery Method Room Air Room Air Weight Weight: 44.4 kg Body Mass Index (BMI) 19.1 Physical Exam Const alert, oriented x3, no apparent distress and well nourished; Negative for average body habitus or healthy appearing Constitutional Narrative: Thin, elderly, white female, sitting up in bed, currently appears comfortable, does not look toxic, seems mildly anxious General Appearance: cooperative HEENT normocephalic, head/scalp atraumatic, hearing grossly normal bilaterally and moist oral mucous membranes HEENT Narrative: Mallampati 2, no thrush Eyes conjunctivae normal Neck supple and no carotid bruits Neck Narrative: Trachea midline Resp normal respiratory effort, no retractions, no use of accessory muscles and clearto auscultation bilaterally Auscultation: Negative for rales, rhonchi or wheezes Cardio regular rate, regular rhythm, S1 normal heart sound, S2 normal heart sound, no murmurs, no rub and no clicks; Negative for no gallops Cardio Narrative: Patient with an S3 gallop GI normal to inspection, nondistended, normoactive bowel sounds, soft to palpation and non-tender GI Narrative: Scaphoid abdomen Extremity no clubbing, cyanosis or edema Extremity Narrative: Right pedal pulse at dorsalis pedis is 2+, left 1+, radial bilaterally 2+ Neuro oriented x3 and moves all extremities Speech: speech normal Psych affect normal Mood & Affect: anxious Results Lab / Micro Data 12/12/24 02:55 12/11/24 19:00 Labs: Laboratory Results - last 24 hr 12/11/24 19:00: WBC 10.0, RBC 4.12 L, Hgb 11.8 L, Hct 35.0 L, MCV 85.0, MCH 28.6, MCHC 33.7, RDW Std Deviation 39.3, RDW Coeff of Niya 12.7, Plt Count 282, MPV 10.2, Immature Gran % (Auto) 0.500, Neut % (Auto) 72.9 H, Lymph % (Auto) 15.3 L, [place] % (Auto) 10.2 H, Eos % (Auto) 0.5, Baso % (Auto) 0.6, Absolute Neuts (auto) 7.3, Absolute Lymphs (auto) 1.53, Nucleated RBC % 0, Sodium 128 L, Potassium 4.1, Chloride 92 L, Carbon Dioxide 24.6, Anion Gap 12, BUN 18, Creatinine 0.74, Estim Creat Clear Calc 41.28 L, Est GFR (MDRD) Non-Af 84, BUN/Creatinine Ratio 24.0 H, Glucose 154 H, Calcium 9.5, Troponin T High Sens 18 H 12/11/24 20:58: Troponin T Hi Sens 2 Hr 23 H 12/11/24 22:46: Troponin T Hi Sens 4Hr 25 H Imaging Radiology Impression Chest X-Ray 12/11/24 19:15 IMPRESSION: No acute cardiopulmonary abnormalities. Reading Location: [place] [address] Assessment & Plan Assessment/Plan (1) Chest pain: (2) Elevated troponin: (3) Uncontrolled hypertension: PLAN: Plan Unstable angina - Patient with escalating anginal equivalent type symptoms including substernal chest pain with nausea, diaphoresis, and exertional dyspnea - Heart score 7 with patient having previous bypass in 1998 and stent placement with the last being 4 years ago -CABG x 1 AUGUSTINE-LAD 06/16/99 -[id number] 1998; [id number] and mid RCA w/ CARLENE-distal, mid and proximal RCA; FFR LEFT CIRCUMFLEX: Moderate OM disease with FFR = 0.89 02/03/2021 -Preserved ejection fraction of 55% on her most recent echocardiogram from January 2021 - Cycle cardiac enzymes - Nitro drip as patient was still having symptoms at rest the emergency department - Heparin drip -Monitor on telemetry - Continue aspirin - Continue home lisinopril - Continue home statin - Check lipid panel - Consult cardiology--> will call Dr. Hernandez in a.m. to discuss as patient likely needs to go to the [facility] after midnight for anticipated cardiac catheterization Elevated troponin - Suspect related to the above - Cardiology consult pending Uncontrolled hypertension - Blood pressure was markedly elevated on presentation however I suspect this may be related to stiff myocardium related to anginal symptoms - Nitro drip and home medications - As needed hydralazine for systolic pressure greater than 160 Hyperlipidemia - continue on statin - Check lipid panel History of breast cancer - Remote Hypothyroidism - Continue home levothyroxine Suspected malnutrition - Dietitian consult Anxiety - Patient takes no medication at baseline however she does appear anxious on admission DVT prophylaxis - Patient on heparin drip CODE STATUS -DNR CCA okay for short-term intubation after discussion with regards to CODE STATUS and what CPR entails in conjunction with survival rate and functional outcomes Charges/Coding Visit Charges Inpatient E&M: 71243 Init Hosp L2 12/12/24 0336 <Electronically signed by Mary Anne Tijerina DO> Cosigner Signature (if applicable): CC: Dr. Adela Harley MD; Dr. Mary Anne Tijerina DO~ Signed [facility] Work Phone: [phone] 993-938606-11-2025 Discharge summary Author Sadi De Los Santos [facility] Note Date/Time December 12, 2024 1:39 am [facility] Medical Records Department [address] [place] [address] Emergency Department Summary 12/11/24 MR#: [id number] Acct: [id number] Name: BEN ARROYO Rep #:[id number] : 1945 79 From: Sadi Crocker PCP: Dr. Adela Harley MD Status:REG ER Location: ED HPI History of Present Illness Chief Complaint: Chest Pain Informant: patient Onset/Context/Timing Onset: Today Activity at onset: gradual Timing: Continuous Quality: Positive for Pressure Location: Substernal Worsened By: Nothing Relieved By: NTG and NSAIDS (Aspirin) Associated Symptoms: Positive for Nausea, Diaphoresis, Fever, Lightheadedness and Palpitations; Negative for Vomiting, Dyspnea, Cough or Acid Reflux Narrative Narrative: Patient presents with chest pain that began today. Patient states it came on gradually. Patient states it has been constant. Patient describes it as a pressure. Patient states it is over the substernal area. Patient states she took aspirin and nitroglycerin which helped somewhat. Patient admits to some nausea but denies any vomiting. Patient admits to some diaphoresis and some shortness of breath. Patient admits to a subjective fever but denies any chills. Patient denies any cough. Patient admits to some lightheadedness and palpitations. Patient states she checked her blood pressure at home and it was over 200/100. Patient denies any vomiting. CVD Risk Factors: Positive for Hypertension, Hypercholesterolemia and Family History 1' </=55; Negative for Diabetes or Smoking PE Risk Factors: Positive for Cancer; Negative for Recent Travel/Surgery, RecentImmobilization, Prior DVT or PE or OCP + Smoking + >/=35 PFSH PFSH Medical History Unstable angina Breast cancer Osteopenia Hiatal hernia Osteoarthritis IBS (irritable bowel syndrome) History of hepatitis A Anemia Atherosclerosis of coronary artery of [place] heart without angina pectoris Essential hypertension GERD (gastroesophageal reflux disease) Anxiety Arthritis Hyperlipidemia Hypothyroidism Home Medications ?Medication ?Instructions ?Recorded ?Last Taken ?Type aspirin 81 mg chewable tablet 81 mg PO DAILY@0800 hear t 05/30/20 01/26/21 History estradiol 0.01% (0.1 mg/gram) 1 ea vaginal WE suppleme nt 05/30/20 05/28/20 History vaginal cream estradiol 0.5 mg tablet 0.5 mg PO QHS 12/22/20 Unkno wn History nitroglycerin 0.4 mg sublingual 0.4 mg sublingual Q5M PRN chest 08/02/22 Unknown Rx tablet pain #25 tabs flaxseed oil 1,000 mg capsule 1,000 mg PO DAILY Unknown History simvastatin 10 mg tablet 10 mg PO DAILY #90 tabs 08/27 Unknown Rx lisinopril 10 mg tablet See Rx Instructions .Route 0 03/12/24 Unknown Rx .COMPLEX #135 tabs cholecalciferol (vitamin D3) 50 50 mcg PO QDAY supplem ent 05/08/24 Unknown History mcg (2,000 unit) capsule cranberry fruit 400 mg capsule 400 mg PO DAILY 4 Unknown History levothyroxine 50 mcg tablet 50 mcg PO DAILY 12/11/24 U nknown History Allergy/AdvReac Type Severity Reaction Status Date / Time lactose AdvReac Upset Verified 12/11/24 18:34 Stomach metoprolol AdvReac dizziness Verified 12/11/24 18:34 Penicillins AdvReac Hives Verified 12/11/24 18:34 Family History Sister Breast cancer Grandmother Breast cancer Father CVA (cerebral vascular accident) Myocardial infarction Mother Parkinson's disease Brother Seizures CVA (cerebral vascular accident) Surgical History History of coronary artery stent placement (02/03/21) H/O coronary artery bypass surgery (06/16/99) History of left heart catheterization (01/26/21) History of bilateral breast implants History of shoulder surgery History of hammer toe correction History of bunionectomy History of cholecystectomy History of cataract surgery History of bilateral mastectomy History of right knee surgery History of hysterectomy Social History Smoking Status: Never smoker alcohol intake: never substance use type: does not use what type of physical activity do you participate in: walking frequency: 5-6 times per week ROS ROS ED Constitutional Constitutional ED: Reports fever(s) and subjective; Denies chills Eyes Eyes: Denies blurry vision or change in vision ENT ENT ED: Denies rhinorrhea or sore throat Cardiovascular Cardiovascular: Reports chest pain and palpitations Respiratory/Chest Respiratory/Chest: Reports dyspnea; Denies cough Gastrointestinal Gastrointestinal: Reports nausea; Denies vomiting Genitourinary Genitourinary ED: Denies dysuria or hematuria Musculoskeletal Musculoskeletal: Reports back pain; Denies neck pain Integumentary Denies abscess or rash Neurologic Neurologic: Denies headache(s) or weakness Allergic/Immunologic Allergic/Immunologic ED: Denies mouth swelling or urticaria EXAM Physical Exam Const Vital Signs: 12/11/24 18:34 12/11/24 19:28 12/11/24 19:29 Temperature 98.3 F Temperature Source Oral Pulse Rate 70 Respiratory Rate 18 Respiratory Effort Normal Non-Labored Blood Pressure 198/90 H Blood Pressure Mean 126 Pulse Ox 100 Oxygen Delivery Method Room Air Room Air 12/11/24 19:31 12/11/24 20:00 12/11/24 20:53 Temperature Temperature Source Pulse Rate 65 72 67 Respiratory Rate 12 11 L Respiratory Effort Blood Pressure 168/76 H 174/82 H 181/74 H Blood Pressure Mean 106 112 109 Pulse Ox 100 100 100 Oxygen Delivery Method Room Air Room Air 12/11/24 21:08 12/11/24 21:50 12/11/24 22:05 Temperature Temperature Source Pulse Rate 60 78 61 Respiratory Rate 16 18 Respiratory Effort Blood Pressure 187/74 H 140/97 H 144/73 H Blood Pressure Mean 111 96 Pulse Ox 99 98 Oxygen Delivery Method Room Air Room Air 12/12/24 00:00 12/12/24 01:00 12/12/24 01:06 Temperature 98.5 F Temperature Source Pulse Rate 61 60 59 L Respiratory Rate 15 15 15 Respiratory Effort Blood Pressure 160/75 H 156/73 H 156/73 H Blood Pressure Mean 103 100 100 Pulse Ox 99 99 99 Oxygen Delivery Method Room Air Room Air Positive well nourished and well developed General Appearance ED: well developed and NAD HEENT Reports moist mucous membranes normocephalic and atraumatic Neck supple and no JVD Resp normal respiratory effort and clear to auscultation bilaterally Cardio regular rate and regular rhythm GI soft to palpation, non-tender and non-distended Extremity normal to inspection General Extremety ED: Negative for edema or tenderness General Extremity: Negative for edema Neuro oriented x3, CN's II-XII intact bilaterally, no sensory deficits noted and gait normal Sensorium / Orientation: awake and alert Motor Exam: strength 5/5 throughout Psych mental status grossly normal Heart Score History: Slightly/Non-Suspicious ECG: Normal Age: >/= 65 years Risk Factors: >/= 3 Risk Factors or History of CAD Troponin: >1 - <3 Normal Limit Score: 5 MDM MDM MDM Narrative Medical decision making narrative: Differential diagnosis includes cardiac dysrhythmia, cardiac ischemia, pneumonia, bronchitis, electrolyte abnormality, hypertensive urgency, gastroesophageal reflux disease, musculoskeletal pain, and anxiety. EKG will beobtained to assess for cardiac dysrhythmia and cardiac ischemia. Chest x-ray will be obtained to assess for pneumonia and bronchitis. CBC will be obtained to assess for leukocytosis and anemia. Basic metabolic profile will be obtainedto assess for electrolyte abnormality and renal function. High-sensitivity troponin will be obtained to assess for cardiac ischemia. 2-hour repeat high-sensitivity troponin will be obtained to assess for ongoing cardiac ischemia. History & Record Review Additional record(s) reviewed:: Prior labs Lab Data Attestation: I reviewed the patient's lab results. Lab results narrative: CBC was reviewed. There is a mild anemia with a hemoglobin of 11.8 and hematocrit 35.0. This is consistent with previous results. Basic metabolic profile was reviewed. Sodium is slightly low at 128 and chloride was slightly low at 92. These are unchanged from previous results. Initial high-sensitivitytroponin was reviewed and was slightly elevated at 18. 2-hour repeat high-sensitivity troponin was reviewed and was 23. 4-hour repeat high-sensitivity troponin was slightly increased at 25. Labs: Laboratory Results - last 24 hr 12/11/24 12/11/24 12/11/24 19:00 20:58 22:46 WBC 10.0 RBC 4.12 L Hgb 11.8 L Hct 35.0 L MCV 85.0 MCH 28.6 MCHC 33.7 RDW Std Deviation 39.3 RDW Coeff of Niya 12.7 Plt Count 282 MPV 10.2 Immature Gran % (Auto) 0.500 Neut % (Auto) 72.9 H Lymph % (Auto) 15.3 L [place] % (Auto) 10.2 H Eos % (Auto) 0.5 Baso % (Auto) 0.6 Absolute Neuts (auto) 7.3 Absolute Lymphs (auto) 1.53 Nucleated RBC % 0 Sodium 128 L Potassium 4.1 Chloride 92 L Carbon Dioxide 24.6 Anion Gap 12 BUN 18 Creatinine 0.74 Estim Creat Clear Calc 41.28 L Est GFR (MDRD) Non-Af 84 BUN/Creatinine Ratio 24.0 H Glucose 154 H Calcium 9.5 Troponin T High Sens 18 H Troponin T Hi Sens 2 Hr 23 H Troponin T Hi Sens 4Hr 25 H Radiography Chest X-Ray - ED: 1 View, Read by ED Physician, Read by Radiologist and No AcuteDisease Diagnostic Testing: Clinical Impression(s) from Imaging Studies Chest X-Ray 12/11/24 19:15 IMPRESSION: No acute cardiopulmonary abnormalities. Reading Location: [place] [address] Portable 1 view chest x-ray was obtained. On my independent interpretation, lung sun are clear. There is normal cardiac silhouette. Bony thorax is normal. There is no acute process noted. Radiologist also interpreted the x-ray and agrees. EKG Initial EKG: Attestation: I personally reviewed and interpreted this EKG as follows: Interpretation: Sinus Rhythm (71) and No Acute Injury Pattern Comments: EKG was obtained. On my independent interpretation, it showed anormal sinus rhythm with a rate of 71. [place] interval, QRS interval, and QTc intervals were all normal. There is left axis deviation at -25. There is left ventricular hypertrophy noted. There are no acute ST or T wave changes. Prior EKG tracings: available for review Prior: Unchanged (01/23/2023) Management Discussion w/another healthcare provider: Hospitalist Treatment and Re-Evaluation :: Patient was given aspirin and sublingual nitroglycerin. Patient's blood pressure improved to 140/97. Patient has a HEART score of 5. Because of the increasing troponins, I recommended admission to the hospital. Patient has not had cardiac catheterization or stress test done for several years. Patient is agreeable with this. Case was discussed with the hospitalist. She will admit the patient to her service. Patient understood and was agreeable with the plan. All questions were answered. Discharge Plan Dx/Rx/DC Orders Clinical Impression: Chest pain, Essential hypertension, H/O coronary artery bypass surgery Disposition Disposition: Acute Care Hospital [facility] What to do if you have Problems For any increased pain, shortness of breath, bleeding, nausea or vomiting, chestpain, or any unexpected problems, contact your Primary Care Provider. Call [facility] ([phone]) or report to the closest Emergency Room. Call 911 if necessary. 12/12/24 013 <Electronically signed by Sadi De Los Santos DO> Cosigner Signature (if applicable): CC: Dr. Adela Harley MD ~ Signed [facility] Work Phone: [phone]) 187-130806-11-2025 History and physical note [facility] Medical Records Department [address] [place] [address] H&P Exam - Hospitalist 12/12/24 0129 MR#: [id number] Acct: [id number] Name: BEN ARROYO Rep #:[id number] : 1945 79 From: Mary Anne Tijerina DO PCP: Dr. Adela Harley MD Status:ADM MAUREEN Location: ICU CVICU20 2-1 HPI - General General Date of Admission: 12/12/24 Date of Service: 12/12/24 Chief Complaint: Chest pain HPI Narrative BEN ARROYO, is a 79 F who presented to the emergency department [facility] on 12/11/2024 with chief complaint of chest pain. Patient hasa strong history of coronary disease with previous bypass and stents. Current heart score is 7. She states she has been getting intermittent chest pain most notably with exertion. She has had increased fatigue and weakness over the last4 months or so with gradually progressive anginal type symptoms. She states over the last day she has felt fairly poorly and symptoms are consistent but more severe than her previous experience anginal equivalents. As noted, chest pain is predominantly exertional and does seem to micheal some with rest but does not sound like it is completely resolved. She also has associated shortness of breath, nausea, and diaphoresis. She states the pain is pressure-like and substernal. She did get relief with nitroglycerin at home and in the emergency department. Vital signs on presentation showed a temperature of 98.3, heart rate 70, respiratory rate 18, bloodpressure was 198/90 and pulse ox was 100% on room air. CBC was overtly unremarkable. Chemistry panel showed hyponatremia at 128. She does have chronic hyponatremia and this is within the realm of herbaseline. Your creatinine within normal limits. Glucose was 154 nonfasting. Initial troponin was 18with a delta of 23 and a 4-hour troponin of 25. EKG is not suggestive of acute ischemia. Chest x-ray is unremarkable. Patient story is strongly suggestive of unstable angina. At the time of my evaluation she was stillhaving some mild substernal chest discomfort so we willplace her on a nitro drip and a heparin dripand consult cardiology for anticipated cardiac catheterization. [facility] Medical History Unstable angina Breast cancer Osteopenia Hiatal hernia Osteoarthritis IBS (irritable bowel syndrome) History of hepatitis A Anemia Atherosclerosis of coronary artery of [place] heart without angina pectoris Essential hypertension GERD (gastroesophageal reflux disease) Anxiety Arthritis Hyperlipidemia Hypothyroidism Home Medications ?Medication ?Instructions ?Recorded ?Last Taken ?Type aspirin 81 mg chewable tablet 81 mg PO DAILY@0800 hear t 05/30/20 01/26/21 History estradiol 0.01% (0.1 mg/gram) 1 ea vaginal WE suppleme nt 05/30/20 05/28/20 History vaginal cream estradiol 0.5 mg tablet 0.5 mg PO QHS 12/22/20 Unkno wn History nitroglycerin 0.4 mg sublingual 0.4 mg sublingual Q5M PRN chest 08/02/22 Unknown Rx tablet pain #25 tabs flaxseed oil 1,000 mg capsule 1,000 mg PO DAILY Unknown History simvastatin 10 mg tablet 10 mg PO DAILY #90 tabs 08/27 Unknown Rx lisinopril 10 mg tablet See Rx Instructions .Route 0 03/12/24 Unknown Rx .COMPLEX #135 tabs cholecalciferol (vitamin D3) 50 50 mcg PO QDAY supplem ent 05/08/24 Unknown History mcg (2,000 unit) capsule cranberry fruit 400 mg capsule 400 mg PO DAILY 4 Unknown History levothyroxine 50 mcg tablet 50 mcg PO DAILY 12/11/24 U nknown History Allergy/AdvReac Type Severity Reaction Status Date / Time lactose AdvReac Upset Verified 12/11/24 18:34 Stomach metoprolol AdvReac dizziness Verified 12/11/24 18:34 Penicillins AdvReac Hives Verified 12/11/24 18:34 Family History Sister Breast cancer Grandmother Breast cancer Father CVA (cerebral vascular accident) Myocardial infarction Mother Parkinson's disease Brother Seizures CVA (cerebral vascular accident) Surgical History History of coronary artery stent placement (02/03/21) H/O coronary artery bypass surgery (06/16/99) History of left heart catheterization (01/26/21) History of bilateral breast implants History of shoulder surgery History of hammer toe correction History of bunionectomy History of cholecystectomy History of cataract surgery History of bilateral mastectomy History of right knee surgery History of hysterectomy Social History Smoking Status: Never smoker alcohol intake: never substance use type: does not use what type of physical activity do you participate in: walking frequency: 5-6 times per week ROS Constitutional Constitutional: Reports fatigue, malaise and weakness; Denies anorexia, change in weight, chills, fever(s), night sweats or other Eyes Eyes: Denies blurry vision, change in eye color, change in vision, discharge from eye(s), double vision, erythema, eye pain, loss of vision or other ENT HEENT: Denies abnormal hearing, dysphagia, ear pain, epistaxis, headache(s), hearing loss, nasal congestion, nasal discharge, post nasal drip, sinus pressure, sore throat or other Cardiovascular Cardiovascular: Reports chest pain and other Details: Presyncope and diaphoresis; Denies claudication, dyspnea on exertion, edema, lightheadedness, orthopnea, palpitations, paroxysmal nocturnal dyspnea, rapid heart rate or syncope Respiratory/Chest Respiratory/Chest: Reports dyspnea; Denies cough, excessive phlegm production, hemoptysis, productive cough, shortness of breath at rest, shortness of breath with exertion, wheezing or other Gastrointestinal Gastrointestinal: Reports nausea; Denies abdominal pain, coffee ground emesis, constipation, diarrhea, dyspepsia, hematemesis, hematochezia, loose stools, melena, vomiting or other Genitourinary Genitourinary: Denies burning urination, difficulty urinating, dysuria, hematuria, nocturia, urinary frequency, urinary hesitancy, urinary incontinence,urinary urgency or other Musculoskeletal Musculoskeletal: Denies arthralgias, back pain, joint pain, joint stiffness, joint swelling, myalgias, neck pain or other Neurologic Neurologic: Denies abnormal gait, abnormal speech, confusion, disequilibrium, dizziness, focal weakness, headache(s), numbness, paresthesias, seizure-like activity, seizures, syncope, tingling, tremor(s) or other Psychiatric Psychiatric: Denies anxiety, depression, homicidal ideation, suicidal ideation or other Endocrine Endocrinology: Denies change in body appearance, cold intolerance, excessive sweating, heat intolerance, polydipsia, polyuria or other Hematologic/Lymphatic Hematologic/Lymphatic: Denies anemia, easy bleeding, easy bruising, lymphadenopathy or other Allergic/Immunologic Allergic/Immunologic: Denies rhinitis, hives, eczemia, asthma or other Vital Signs Vital Signs Vital Signs: 12/11/24 18:34 12/11/24 19:28 12/11/24 19:29 Temperature 98.3 F Temperature Source Oral Pulse Rate 70 Respiratory Rate 18 Respiratory Effort Normal Non-Labored Blood Pressure 198/90 H Blood Pressure Mean 126 Pulse Ox 100 Oxygen Delivery Method Room Air Room Air 12/11/24 19:31 12/11/24 20:00 12/11/24 20:53 Temperature Temperature Source Pulse Rate 65 72 67 Respiratory Rate 12 11 L Respiratory Effort Blood Pressure 168/76 H 174/82 H 181/74 H Blood Pressure Mean 106 112 109 Pulse Ox 100 100 100 Oxygen Delivery Method Room Air Room Air 12/11/24 21:08 12/11/24 21:50 12/11/24 22:05 Temperature Temperature Source Pulse Rate 60 78 61 Respiratory Rate 16 18 Respiratory Effort Blood Pressure 187/74 H 140/97 H 144/73 H Blood Pressure Mean 111 96 Pulse Ox 99 98 Oxygen Delivery Method Room Air Room Air 12/12/24 00:00 12/12/24 01:00 12/12/24 01:06 Temperature 98.5 F Temperature Source Pulse Rate 61 60 59 L Respiratory Rate 15 15 15 Respiratory Effort Blood Pressure 160/75 H 156/73 H 156/73 H Blood Pressure Mean 103 100 100 Pulse Ox 99 99 99 Oxygen Delivery Method Room Air Room Air Weight Weight: 44.4 kg Body Mass Index (BMI) 19.1 Physical Exam Const alert, oriented x3, no apparent distress and well nourished; Negative for average body habitus or healthy appearing Constitutional Narrative: Thin, elderly, white female, sitting up in bed, currently appears comfortable, does not look toxic,seems mildly anxious General Appearance: cooperative HEENT normocephalic, head/scalp atraumatic, hearing grossly normal bilaterally and moist oral mucous membranes HEENT Narrative: Mallampati 2, no thrush Eyes conjunctivae normal Neck supple and no carotid bruits Neck Narrative: Trachea midline Resp normal respiratory effort, no retractions, no use of accessory muscles and clearto auscultation bilaterally Auscultation: Negative for rales, rhonchi or wheezes Cardio regular rate, regular rhythm, S1 normal heart sound, S2 normal heart sound, no murmurs, no rub and no clicks; Negative for no gallops Cardio Narrative: Patient with an S3 gallop GI normal to inspection, nondistended, normoactive bowel sounds, soft to palpation and non-tender GI Narrative: Scaphoid abdomen Extremity no clubbing, cyanosis or edema Extremity Narrative: Right pedal pulse at dorsalis pedis is 2+, left 1+, radial bilaterally 2+ Neuro oriented x3 and moves all extremities Speech: speech normal Psych affect normal Mood & Affect: anxious Results Lab / Micro Data 12/12/24 02:55 12/11/24 19:00 Labs: Laboratory Results - last 24 hr 12/11/24 19:00: WBC 10.0, RBC 4.12 L, Hgb 11.8 L, Hct 35.0 L, MCV 85.0, MCH 28.6, MCHC 33.7, RDW Std Deviation 39.3, RDW Coeff of Niya 12.7, Plt Count 282, MPV 10.2, Immature Gran % (Auto) 0.500, Neut% (Auto) 72.9 H, Lymph % (Auto) 15.3 L, [place] % (Auto) 10.2 H, Eos % (Auto) 0.5, Baso % (Auto) 0.6, Absolute Neuts (auto) 7.3, Absolute Lymphs (auto) 1.53, Nucleated RBC % 0, Sodium 128 L, Potassium 4.1, Chloride 92 L, Carbon Dioxide 24.6, Anion Gap 12, BUN 18, Creatinine 0.74, Estim Creat Clear Calc 41.28 L, Est GFR (MDRD) Non-Af 84, BUN/Creatinine Ratio 24.0 H, Glucose 154 H, Calcium 9.5, Troponin T High Sens 18 H 12/11/24 20:58: Troponin T Hi Sens 2 Hr 23 H 12/11/24 22:46: Troponin T Hi Sens 4Hr 25 H Imaging Radiology Impression Chest X-Ray 12/11/24 19:15 IMPRESSION: No acute cardiopulmonary abnormalities. Reading Location: [place] [address] Assessment & Plan Assessment/Plan (1) Chest pain: (2) Elevated troponin: (3) Uncontrolled hypertension: PLAN: Plan Unstable angina - Patient with escalating anginal equivalent type symptoms including substernal chest pain with nausea, diaphoresis, and exertional dyspnea - Heart score 7 with patient having previous bypass in 1998 and stent placement with the last being4 years ago -CABG x 1 AUGUSTINE-LAD 06/16/99 -EEC-YIMHX-YAY 1998; SRY-[id number]-fgmror and mid RCA w/ CARLENE-distal, mid and proximal RCA; FFR LEFTCIRCUMFLEX: Moderate OM disease with FFR = 0.89 02/03/2021 -Preserved ejection fraction of 55% on her most recent echocardiogram from January 2021 - Cycle cardiac enzymes - Nitro drip as patient was still having symptoms at rest the emergency department - Heparin drip -Monitor on telemetry - Continue aspirin - Continue home lisinopril - Continue home statin - Check lipid panel - Consult cardiology--> will call Dr. Hernandez in a.m. to discuss as patient likely needs to go [facility] Sample Cutter - N.p.o. after midnight for anticipated cardiac catheterization Elevated troponin - Suspect related to the above - Cardiology consult pending Uncontrolled hypertension - Blood pressure was markedly elevated on presentation however I suspect this may be related to stiff myocardium related to anginal symptoms - Nitro drip and home medications - As needed hydralazine for systolic pressure greater than 160 Hyperlipidemia - continue on statin - Check lipid panel History of breast cancer - Remote Hypothyroidism - Continue home levothyroxine Suspected malnutrition - Dietitian consult Anxiety - Patient takes no medication at baseline however she does appear anxious on admission DVT prophylaxis - Patient on heparin drip CODE STATUS -DNR CCA okay for short-term intubation after discussion with regards to CODE STATUS and what CPR entails in conjunction with survival rate and functional outcomes Charges/Coding Visit Charges Inpatient E&M: 84530 Init Hosp L2 12/12/24 0336 Cosigner Signature (if applicable): CC: Dr. Adela Harley MD; Dr. Mary Anne Tijerina DO~ Signed [facility]06-11-2025 Evaluation note* Diagnosis Onset Date Resolution Status Admit Date Chest pain acute December 12 1:34am Elevated troponin acute December 122024 1:34am H/O coronary artery bypass surgery June 16, 1999 acute December 12, 2 025 1:34am Hyperlipidemia acute December 12, 2024 1:34am Uncontrolled hypertension acute December 12, 2024 1:34am Atherosclerosis of coronary artery of [place] heart without angina pectoris chronic December 1:34am Essential hypertension chronic 2024 1:34am Breast cancer resolved December 12, 2024 1:34am [place] [employer] Work Phone: 1([phone]) 410-585206-11-2025 Evaluation note* Diagnosis Onset Date Resolution Status Admit Date CAD (coronary artery disease) acute December 12, 2024 1:34am Chest pain acute December 12 1:34am Elevated troponin acute December 122024 1:34am H/O coronary artery bypass surgery June 16, 1999 acute December 12, 025 1:34am Hyperlipidemia acute December 12, 2024 1:34am Uncontrolled hypertension acute December 12, 2024 1:34am Atherosclerosis of coronary artery of [place] heart without angina pectoris chronic December 1:34am Essential hypertension chronic 2024 1:34am Breast cancer resolved December 12, 2024 1:34am [facility] Work Phone: [phone]) 160-343706-11-2025 Evaluation note* Diagnosis Onset Date Resolution Status Admit Date CAD (coronary artery disease) acute December 12, 2024 1:34am Hyperlipidemia acute December 12, 2024 1:34am Essential hypertension chronic Ju 2024 1:34am Breast cancer resolved December 12, 2024 1:34am Atherosclerosis of coronary artery of [place] heart without angina pectoris inactive December 1:34am Chest pain inactive December 12 1:34am Elevated troponin inactive December 122024 1:34am H/O coronary artery bypass surgery June 16, 1999 inactive December 12, 2 025 1:34am Uncontrolled hypertension inactive December 12, 2024 1:34am [facility] Work Phone: 1(351) 125-853306-11-2025 Evaluation note* Diagnosis Onset Date Resolution Status Admit Date CAD (coronary artery disease) acute December 12, 2024 1:34am Hyperlipidemia acute December 12, 2024 1:34am Essential hypertension chronic Ju ne 2024 1:34am Breast cancer resolved December 12, 2024 1:34am Atherosclerosis of coronary artery of [place] heart without angina pectoris inactive December 1:34am Chest pain inactive December 12 1:34am Elevated troponin inactive December 122024 1:34am H/O coronary artery bypass surgery June 16, 1999 inactive December 12, 025 1:34am Uncontrolled hypertension inactive December 12, 2024 1:34am CAD (coronary artery disease) acute January 09, 2025 10:58am Hyperlipidemia acute January 09, 2025 10:58am Essential hypertension chronic Ju ly 2024 10:58am [facility] Work Phone: [phone]) 622-740306-11-2025 Discharge summary [facility] Medical Records Department [address] [place] [address] Emergency Department Summary 12/11/24 MR#: [id number] Acct: [id number] Name: BEN ARROYO Rep #:[id number] : 1945 79 From: Sadi Crocker PCP: Dr. Adela Harley MD Status:REG ER Location: ED HPI History of Present Illness Chief Complaint: Chest Pain Informant: patient Onset/Context/Timing Onset: Today Activity at onset: gradual Timing: Continuous Quality: Positive for Pressure Location: Substernal Worsened By: Nothing Relieved By: NTG and NSAIDS (Aspirin) Associated Symptoms: Positive for Nausea, Diaphoresis, Fever, Lightheadedness and Palpitations; Negative for Vomiting, Dyspnea, Cough or Acid Reflux Narrative Narrative: Patient presents with chest pain that began today. Patient states it came on gradually. Patient states it has been constant. Patient describes it as a pressure. Patient states it is over the substernal area. Patient states she took aspirin and nitroglycerin which helped somewhat. Patient admits to some nausea but denies any vomiting. Patient admits to some diaphoresis and some shortness of breath. Patient admits to a subjective fever but denies any chills. Patient denies any cough. Patient admits to some lightheadedness and palpitations. Patient states she checked her blood pressure at home and it was over 200/100. Patient denies any vomiting. CVD Risk Factors: Positive for Hypertension, Hypercholesterolemia and Family History 1' PE Risk Factors: Positive for Cancer; Negative for Recent Travel/Surgery, RecentImmobilization, Prior DVT or PEor OCP + Smoking + >/=35 PFSH PFSH Medical History Unstable angina Breast cancer Osteopenia Hiatal hernia Osteoarthritis IBS (irritable bowel syndrome) History of hepatitis A Anemia Atherosclerosis of coronary artery of [place] heart without angina pectoris Essential hypertension GERD (gastroesophageal reflux disease) Anxiety Arthritis Hyperlipidemia Hypothyroidism Home Medications ?Medication ?Instructions ?Recorded ?Last Taken ?Type aspirin 81 mg chewable tablet 81 mg PO DAILY@0800 hear t 05/30/20 01/26/21 History estradiol 0.01% (0.1 mg/gram) 1 ea vaginal WE suppleme nt 05/30/20 05/28/20 History vaginal cream estradiol 0.5 mg tablet 0.5 mg PO QHS 12/22/20 Unkno wn History nitroglycerin 0.4 mg sublingual 0.4 mg sublingual Q5M PRN chest 08/02/22 Unknown Rx tablet pain #25 tabs flaxseed oil 1,000 mg capsule 1,000 mg PO DAILY Unknown History simvastatin 10 mg tablet 10 mg PO DAILY #90 tabs 08/27 Unknown Rx lisinopril 10 mg tablet See Rx Instructions .Route 0 03/12/24 Unknown Rx .COMPLEX #135 tabs cholecalciferol (vitamin D3) 50 50 mcg PO QDAY supplem ent 05/08/24 Unknown History mcg (2,000 unit) capsule cranberry fruit 400 mg capsule 400 mg PO DAILY 4 Unknown History levothyroxine 50 mcg tablet 50 mcg PO DAILY 12/11/24 U nknown History Allergy/AdvReac Type Severity Reaction Status Date / Time lactose AdvReac Upset Verified 12/11/24 18:34 Stomach metoprolol AdvReac dizziness Verified 12/11/24 18:34 Penicillins AdvReac Hives Verified 12/11/24 18:34 Family History Sister Breast cancer Grandmother Breast cancer Father CVA (cerebral vascular accident) Myocardial infarction Mother Parkinson's disease Brother Seizures CVA (cerebral vascular accident) Surgical History History of coronary artery stent placement (02/03/21) H/O coronary artery bypass surgery (06/16/99) History of left heart catheterization (01/26/21) History of bilateral breast implants History of shoulder surgery History of hammer toe correction History of bunionectomy History of cholecystectomy History of cataract surgery History of bilateral mastectomy History of right knee surgery History of hysterectomy Social History Smoking Status: Never smoker alcohol intake: never substance use type: does not use what type of physical activity do you participate in: walking frequency: 5-6 times per week ROS ROS ED Constitutional Constitutional ED: Reports fever(s) and subjective; Denies chills Eyes Eyes: Denies blurry vision or change in vision ENT ENT ED: Denies rhinorrhea or sore throat Cardiovascular Cardiovascular: Reports chest pain and palpitations Respiratory/Chest Respiratory/Chest: Reports dyspnea; Denies cough Gastrointestinal Gastrointestinal: Reports nausea; Denies vomiting Genitourinary Genitourinary ED: Denies dysuria or hematuria Musculoskeletal Musculoskeletal: Reports back pain; Denies neck pain Integumentary Denies abscess or rash Neurologic Neurologic: Denies headache(s) or weakness Allergic/Immunologic Allergic/Immunologic ED: Denies mouth swelling or urticaria EXAM Physical Exam Const Vital Signs: 12/11/24 18:34 12/11/24 19:28 12/11/24 19:29 Temperature 98.3 F Temperature Source Oral Pulse Rate 70 Respiratory Rate 18 Respiratory Effort Normal Non-Labored Blood Pressure 198/90 H Blood Pressure Mean 126 Pulse Ox 100 Oxygen Delivery Method Room Air Room Air 12/11/24 19:31 12/11/24 20:00 12/11/24 20:53 Temperature Temperature Source Pulse Rate 65 72 67 Respiratory Rate 12 11 L Respiratory Effort Blood Pressure 168/76 H 174/82 H 181/74 H Blood Pressure Mean 106 112 109 Pulse Ox 100 100 100 Oxygen Delivery Method Room Air Room Air 12/11/24 21:08 12/11/24 21:50 12/11/24 22:05 Temperature Temperature Source Pulse Rate 60 78 61 Respiratory Rate 16 18 Respiratory Effort Blood Pressure 187/74 H 140/97 H 144/73 H Blood Pressure Mean 111 96 Pulse Ox 99 98 Oxygen Delivery Method Room Air Room Air 12/12/24 00:00 12/12/24 01:00 12/12/24 01:06 Temperature 98.5 F Temperature Source Pulse Rate 61 60 59 L Respiratory Rate 15 15 15 Respiratory Effort Blood Pressure 160/75 H 156/73 H 156/73 H Blood Pressure Mean 103 100 100 Pulse Ox 99 99 99 Oxygen Delivery Method Room Air Room Air Positive well nourished and well developed General Appearance ED: well developed and NAD HEENT Reports moist mucous membranes normocephalic and atraumatic Neck supple and no JVD Resp normal respiratory effort and clear to auscultation bilaterally Cardio regular rate and regular rhythm GI soft to palpation, non-tender and non-distended Extremity normal to inspection General Extremety ED: Negative for edema or tenderness General Extremity: Negative for edema Neuro oriented x3, CN's II-XII intact bilaterally, no sensory deficits noted and gait normal Sensorium / Orientation: awake and alert Motor Exam: strength 5/5 throughout Psych mental status grossly normal Heart Score History: Slightly/Non-Suspicious ECG: Normal Age: >/= 65 years Risk Factors: >/= 3 Risk Factors or History of CAD Troponin: >1 - <3 Normal Limit Score: 5 MDM MDM MDM Narrative Medical decision making narrative: Differential diagnosis includes cardiac dysrhythmia, cardiac ischemia, pneumonia, bronchitis, electrolyte abnormality, hypertensive urgency, gastroesophageal reflux disease, musculoskeletal pain, andanxiety. EKG will beobtained to assess for cardiac dysrhythmia and cardiac ischemia. Chest x-ray will be obtained to assess for pneumonia and bronchitis. CBC will be obtained to assess for leukocytosis and anemia. Basic metabolic profile will be obtainedto assess for electrolyte abnormality and renal function. High-sensitivity troponin will be obtained to assess for cardiac ischemia. 2-hour repeat high-sensitivity troponin will be obtained to assess for ongoing cardiac ischemia. History & Record Review Additional record(s) reviewed:: Prior labs Lab Data Attestation: I reviewed the patient's lab results. Lab results narrative: CBC was reviewed. There is a mild anemia with a hemoglobin of 11.8 and hematocrit 35.0. This is consistent with previous results. Basic metabolic profile was reviewed. Sodium is slightly low at 128 and chloride was slightly low at 92. These are unchanged from previous results. Initial high-sensitivi tytroponin was reviewed and was slightly elevated at 18. 2-hour repeat high- sensitivity troponin was reviewed and was 23. 4-hour repeat high-sensitivity troponin was slightly increased at 25. Labs: Laboratory Results - last 24 hr 12/11/24 12/11/24 12/11/24 19:00 20:58 22:46 WBC 10.0 RBC 4.12 L Hgb 11.8 L Hct 35.0 L MCV 85.0 MCH 28.6 MCHC 33.7 RDW Std Deviation 39.3 RDW Coeff of Niya 12.7 Plt Count 282 MPV 10.2 Immature Gran % (Auto) 0.500 Neut % (Auto) 72.9 H Lymph % (Auto) 15.3 L [place] % (Auto) 10.2 H Eos % (Auto) 0.5 Baso % (Auto) 0.6 Absolute Neuts (auto) 7.3 Absolute Lymphs (auto) 1.53 Nucleated RBC % 0 Sodium 128 L Potassium 4.1 Chloride 92 L Carbon Dioxide 24.6 Anion Gap 12 BUN 18 Creatinine 0.74 Estim Creat Clear Calc 41.28 L Est GFR (MDRD) Non-Af 84 BUN/Creatinine Ratio 24.0 H Glucose 154 H Calcium 9.5 Troponin T High Sens 18 H Troponin T Hi Sens 2 Hr 23 H Troponin T Hi Sens 4Hr 25 H Radiography Chest X-Ray - ED: 1 View, Read by ED Physician, Read by Radiologist and No AcuteDisease Diagnostic Testing: Clinical Impression(s) from Imaging Studies Chest X-Ray 12/11/24 19:15 IMPRESSION: No acute cardiopulmonary abnormalities. Reading Location: [place] [address] Portable 1 view chest x-ray was obtained. On my independent interpretation, lung sun are clear. There is normal cardiac silhouette. Bony thorax is normal. There is no acute process noted. Radiologist also interpreted the x-ray and agrees. EKG Initial EKG: Attestation: I personally reviewed and interpreted this EKG as follows: Interpretation: Sinus Rhythm (71) and No Acute Injury Pattern Comments: EKG was obtained. On my independent interpretation, it showed anormal sinus rhythm with arate of 71. [place] interval, QRS interval, and QTc intervals were all normal. There is left axis deviation at -25. There is left ventricular hypertrophy noted. There are no acute ST or T wave changes. Prior EKG tracings: available for review Prior: Unchanged (01/23/2023) Management Discussion w/another healthcare provider: Hospitalist Treatment and Re-Evaluation :: Patient was given aspirin and sublingual nitroglycerin. Patient's blood pressure improved to 140/97. Patient has a HEART score of 5. Because of the increasing troponins, I recommended admission to the hospital. Patient has not had cardiac catheterization or stress test done for several years. Patient is agreeable with this. Case was discussed with the hospitalist. She will admit the patient to her service. Patient understood and was agreeable with the plan. All questions were answered. Discharge Plan Dx/Rx/DC Orders Clinical Impression: Chest pain, Essential hypertension, H/O coronary artery bypass surgery Disposition Disposition: Acute Care Hospital [facility] What to do if you have Problems For any increased pain, shortness of breath, bleeding, nausea or vomiting, chestpain, or any unexpected problems, contact your Primary Care Provider. Call [facility] ([phone]) or report tothe closest Emergency Room. Call 911 if necessary. 12/12/24 0139 Cosigner Signature (if applicable): CC: Dr. Adela Harley MD ~ Signed [facility]06-10-2025 Radiology Diagnostic study note [facility] Imaging Services [address] [place], [place] [id number] Chest 1 View (Portable) MR#: [id number] Acct: [id number] Name: BEN ARROYO Rep #: [id number] : 1945 F 79 From: Barney Everett MD PCP: Dr. Adela Harley MD Status: PRE ER Study:Chest 1 View (Portable) Date of Exam: 12/11/24 Exam# [id number] Ordering Dr: Sadi De Los Santos DO PROCEDURE: CHEST 1 VIEW (PORTABLE) 12/11/2024 REASON FOR EXAM: CHEST PAIN TECHNIQUE: Frontal view of the chest. COMPARISON: 02/01/2021. FINDINGS: The heart is normal in size. The mediastinum is normal in contour. Surgical clips overlie the heart. The lungs are clear. No acute osseous abnormalities. Right upper quadrant surgical clips. RAD/Chest 1 View (Portable) IMPRESSION: No acute cardiopulmonary abnormalities. Reading Location: [id number] CC: Dr. Sadi De Los Santos DO; Dr. Adela Harley MD ~ [employer] Principal: Signed [facility]06-10-2025 Discharge summary Author Sadi De Los Santos [facility] Note Date/Time December 12, 2024 1:39 am [facility] Medical Records Department [address] [place] [id number] Emergency Department Summary 12/11/24 MR#: [id number] Acct: [id number] Name: BEN ARROYO Rep #:[id number] : 1945 79 From: Sadi Crocker PCP: Dr. Adela Harley MD Status:REG ER Location: ED HPI History of Present Illness Chief Complaint: Chest Pain Informant: patient Onset/Context/Timing Onset: Today Activity at onset: gradual Timing: Continuous Quality: Positive for Pressure Location: Substernal Worsened By: Nothing Relieved By: NTG and NSAIDS (Aspirin) Associated Symptoms: Positive for Nausea, Diaphoresis, Fever, Lightheadedness and Palpitations; Negative for Vomiting, Dyspnea, Cough or Acid Reflux Narrative Narrative: Patient presents with chest pain that began today. Patient states it came on gradually. Patient states it has been constant. Patient describes it as a pressure. Patient states it is over the substernal area. Patient states she took aspirin and nitroglycerin which helped somewhat. Patient admits to some nausea but denies any vomiting. Patient admits to some diaphoresis and some shortness of breath. Patient admits to a subjective fever but denies any chills. Patient denies any cough. Patient admits to some lightheadedness and palpitations. Patient states she checked her blood pressure at home and it was over 200/100. Patient denies any vomiting. CVD Risk Factors: Positive for Hypertension, Hypercholesterolemia and Family History 1' </=55; Negative for Diabetes or Smoking PE Risk Factors: Positive for Cancer; Negative for Recent Travel/Surgery, RecentImmobilization, Prior DVT or PE or OCP + Smoking + >/=35 PFSH PFSH Medical History Unstable angina Breast cancer Osteopenia Hiatal hernia Osteoarthritis IBS (irritable bowel syndrome) History of hepatitis A Anemia Atherosclerosis of coronary artery of [place] heart without angina pectoris Essential hypertension GERD (gastroesophageal reflux disease) Anxiety Arthritis Hyperlipidemia Hypothyroidism Home Medications ?Medication ?Instructions ?Recorded ?Last Taken ?Type aspirin 81 mg chewable tablet 81 mg PO DAILY@0800 hear t 05/30/20 01/26/21 History estradiol 0.01% (0.1 mg/gram) 1 ea vaginal WE suppleme nt 05/30/20 05/28/20 History vaginal cream estradiol 0.5 mg tablet 0.5 mg PO QHS 12/22/20 Unkno wn History nitroglycerin 0.4 mg sublingual 0.4 mg sublingual Q5M PRN chest 08/02/22 Unknown Rx tablet pain #25 tabs flaxseed oil 1,000 mg capsule 1,000 mg PO DAILY Unknown History simvastatin 10 mg tablet 10 mg PO DAILY #90 tabs 08/27 Unknown Rx lisinopril 10 mg tablet See Rx Instructions .Route 0 03/12/24 Unknown Rx .COMPLEX #135 tabs cholecalciferol (vitamin D3) 50 50 mcg PO QDAY supplem ent 05/08/24 Unknown History mcg (2,000 unit) capsule cranberry fruit 400 mg capsule 400 mg PO DAILY 4 Unknown History levothyroxine 50 mcg tablet 50 mcg PO DAILY 12/11/24 U nknown History Allergy/AdvReac Type Severity Reaction Status Date / Time lactose AdvReac Upset Verified 12/11/24 18:34 Stomach metoprolol AdvReac dizziness Verified 12/11/24 18:34 Penicillins AdvReac Hives Verified 12/11/24 18:34 Family History Sister Breast cancer Grandmother Breast cancer Father CVA (cerebral vascular accident) Myocardial infarction Mother Parkinson's disease Brother Seizures CVA (cerebral vascular accident) Surgical History History of coronary artery stent placement (02/03/21) H/O coronary artery bypass surgery (06/16/99) History of left heart catheterization (01/26/21) History of bilateral breast implants History of shoulder surgery History of hammer toe correction History of bunionectomy History of cholecystectomy History of cataract surgery History of bilateral mastectomy History of right knee surgery History of hysterectomy Social History Smoking Status: Never smoker alcohol intake: never substance use type: does not use what type of physical activity do you participate in: walking frequency: 5-6 times per week ROS ROS ED Constitutional Constitutional ED: Reports fever(s) and subjective; Denies chills Eyes Eyes: Denies blurry vision or change in vision ENT ENT ED: Denies rhinorrhea or sore throat Cardiovascular Cardiovascular: Reports chest pain and palpitations Respiratory/Chest Respiratory/Chest: Reports dyspnea; Denies cough Gastrointestinal Gastrointestinal: Reports nausea; Denies vomiting Genitourinary Genitourinary ED: Denies dysuria or hematuria Musculoskeletal Musculoskeletal: Reports back pain; Denies neck pain Integumentary Denies abscess or rash Neurologic Neurologic: Denies headache(s) or weakness Allergic/Immunologic Allergic/Immunologic ED: Denies mouth swelling or urticaria EXAM Physical Exam Const Vital Signs: 12/11/24 18:34 12/11/24 19:28 12/11/24 19:29 Temperature 98.3 F Temperature Source Oral Pulse Rate 70 Respiratory Rate 18 Respiratory Effort Normal Non-Labored Blood Pressure 198/90 H Blood Pressure Mean 126 Pulse Ox 100 Oxygen Delivery Method Room Air Room Air 12/11/24 19:31 12/11/24 20:00 12/11/24 20:53 Temperature Temperature Source Pulse Rate 65 72 67 Respiratory Rate 12 11 L Respiratory Effort Blood Pressure 168/76 H 174/82 H 181/74 H Blood Pressure Mean 106 112 109 Pulse Ox 100 100 100 Oxygen Delivery Method Room Air Room Air 12/11/24 21:08 12/11/24 21:50 12/11/24 22:05 Temperature Temperature Source Pulse Rate 60 78 61 Respiratory Rate 16 18 Respiratory Effort Blood Pressure 187/74 H 140/97 H 144/73 H Blood Pressure Mean 111 96 Pulse Ox 99 98 Oxygen Delivery Method Room Air Room Air 12/12/24 00:00 12/12/24 01:00 12/12/24 01:06 Temperature 98.5 F Temperature Source Pulse Rate 61 60 59 L Respiratory Rate 15 15 15 Respiratory Effort Blood Pressure 160/75 H 156/73 H 156/73 H Blood Pressure Mean 103 100 100 Pulse Ox 99 99 99 Oxygen Delivery Method Room Air Room Air Positive well nourished and well developed General Appearance ED: well developed and NAD HEENT Reports moist mucous membranes normocephalic and atraumatic Neck supple and no JVD Resp normal respiratory effort and clear to auscultation bilaterally Cardio regular rate and regular rhythm GI soft to palpation, non-tender and non-distended Extremity normal to inspection General Extremety ED: Negative for edema or tenderness General Extremity: Negative for edema Neuro oriented x3, CN's II-XII intact bilaterally, no sensory deficits noted and gait normal Sensorium / Orientation: awake and alert Motor Exam: strength 5/5 throughout Psych mental status grossly normal Heart Score History: Slightly/Non-Suspicious ECG: Normal Age: >/= 65 years Risk Factors: >/= 3 Risk Factors or History of CAD Troponin: >1 - <3 Normal Limit Score: 5 MDM MDM MDM Narrative Medical decision making narrative: Differential diagnosis includes cardiac dysrhythmia, cardiac ischemia, pneumonia, bronchitis, electrolyte abnormality, hypertensive urgency, gastroesophageal reflux disease, musculoskeletal pain, and anxiety. EKG will beobtained to assess for cardiac dysrhythmia and cardiac ischemia. Chest x-ray will be obtained to assess for pneumonia and bronchitis. CBC will be obtained to assess for leukocytosis and anemia. Basic metabolic profile will be obtainedto assess for electrolyte abnormality and renal function. High-sensitivity troponin will be obtained to assess for cardiac ischemia. 2-hour repeat high-sensitivity troponin will be obtained to assess for ongoing cardiac ischemia. History & Record Review Additional record(s) reviewed:: Prior labs Lab Data Attestation: I reviewed the patient's lab results. Lab results narrative: CBC was reviewed. There is a mild anemia with a hemoglobin of 11.8 and hematocrit 35.0. This is consistent with previous results. Basic metabolic profile was reviewed. Sodium is slightly low at 128 and chloride was slightly low at 92. These are unchanged from previous results. Initial high-sensitivitytroponin was reviewed and was slightly elevated at 18. 2-hour repeat high-sensitivity troponin was reviewed and was 23. 4-hour repeat high-sensitivity troponin was slightly increased at 25. Labs: Laboratory Results - last 24 hr 12/11/24 12/11/24 12/11/24 19:00 20:58 22:46 WBC 10.0 RBC 4.12 L Hgb 11.8 L Hct 35.0 L MCV 85.0 MCH 28.6 MCHC 33.7 RDW Std Deviation 39.3 RDW Coeff of Niya 12.7 Plt Count 282 MPV 10.2 Immature Gran % (Auto) 0.500 Neut % (Auto) 72.9 H Lymph % (Auto) 15.3 L [place] % (Auto) 10.2 H Eos % (Auto) 0.5 Baso % (Auto) 0.6 Absolute Neuts (auto) 7.3 Absolute Lymphs (auto) 1.53 Nucleated RBC % 0 Sodium 128 L Potassium 4.1 Chloride 92 L Carbon Dioxide 24.6 Anion Gap 12 BUN 18 Creatinine 0.74 Estim Creat Clear Calc 41.28 L Est GFR (MDRD) Non-Af 84 BUN/Creatinine Ratio 24.0 H Glucose 154 H Calcium 9.5 Troponin T High Sens 18 H Troponin T Hi Sens 2 Hr 23 H Troponin T Hi Sens 4Hr 25 H Radiography Chest X-Ray - ED: 1 View, Read by ED Physician, Read by Radiologist and No AcuteDisease Diagnostic Testing: Clinical Impression(s) from Imaging Studies Chest X-Ray 12/11/24 19:15 IMPRESSION: No acute cardiopulmonary abnormalities. Reading Location: [place] [address] Portable 1 view chest x-ray was obtained. On my independent interpretation, lung sun are clear. There is normal cardiac silhouette. Bony thorax is normal. There is no acute process noted. Radiologist also interpreted the x-ray and agrees. EKG Initial EKG: Attestation: I personally reviewed and interpreted this EKG as follows: Interpretation: Sinus Rhythm (71) and No Acute Injury Pattern Comments: EKG was obtained. On my independent interpretation, it showed anormal sinus rhythm with a rate of 71. [place] interval, QRS interval, and QTc intervals were all normal. There is left axis deviation at -25. There is left ventricular hypertrophy noted. There are no acute ST or T wave changes. Prior EKG tracings: available for review Prior: Unchanged (01/23/2023) Management Discussion w/another healthcare provider: Hospitalist Treatment and Re-Evaluation :: Patient was given aspirin and sublingual nitroglycerin. Patient's blood pressure improved to 140/97. Patient has a HEART score of 5. Because of the increasing troponins, I recommended admission to the hospital. Patient has not had cardiac catheterization or stress test done for several years. Patient is agreeable with this. Case was discussed with the hospitalist. She will admit the patient to her service. Patient understood and was agreeable with the plan. All questions were answered. Discharge Plan Dx/Rx/DC Orders Clinical Impression: Chest pain, Essential hypertension, H/O coronary artery bypass surgery Disposition Disposition: Acute Care Hospital [facility] What to do if you have Problems For any increased pain, shortness of breath, bleeding, nausea or vomiting, chestpain, or any unexpected problems, contact your Primary Care Provider. Call [facility] ([phone]) or report to the closest Emergency Room. Call 911 if necessary. 12/12/24 0139 <Electronically signed by Sadi De Los Santos DO> Cosigner Signature (if applicable): CC: Dr. Adela Harley MD ~ Signed [facility] Work Phone: [phone]) 324-416612-23-2024 NoteHNO ID: [id number] Author: YESSICA GREENE MD Service: ? Author Type: Physician Type: Progress Notes Filed: 06/25/2024 15:16 Note Text: Yessica Greene MD Interventional Cardiology [address] [place] [address] [phone] Chief Complaint No chief complaint on file. [...] Nose: Nose normal. Chen (more content not included)...[facility]12-23-2024 History of Present illness Narrative* Yessica Greene MD - 06/25/2024 2:30 PM EST Images from the original note were not included. Yessica Greene MD Interventional Cardiology [address] [place] [address] [phone] Chief Complaint No chief complaint on file. [...] view denies any chest pain she is shortof breath with extremely strenuous activities but she [...] BULK,) 100,000 unit/gram powd Take 50 mcg bymouth. aspirin, enteric coated (ASPIRIN, ENTERIC COATED) 81 [...] coronary angioplasty (PTCA) status - ICD9: V45.82, ICD10:Z98.61 Stable with no angina continue medical therapy [...] to correct any errors. documented in [facility] Miscellaneous Notes* Telephone Encounter - Antoinette Leiva LPN - 09/22/2022 8:16 AM EDT Patient returned call and went over results, notes from express care provider with understanding. Patient plans to call PCP to notify that she is COVID positive. * Telephone Encounter - Diana Villanueva - 09/22/2022 8:00 AM EDT Left message for patient to return call. Diana Villanueva * Telephone Encounter - Blaine Leon APRN.CNP - 09/22/2022 7:30 AM EDT You tested positive for COVID-19. Follow the [...] care provider or schedule a visit with [facility]. A test is not recommended to return to work/school when meeting the above criteria. Blaine Leon APRN.CNP documented in this encounter[facility] Instructions* Patient Instructions* Holly Cardoza APRN.CNP - 09/21/2022 10:57 AM EDT covid and influenza test ordered You will be notified in -24 hours, [facility] until results are back Rest, [...] breath, inability to swallow. documented in this encounterMer[facility]23 History of Present illness Narrative* Holly Cardoza APRN.CNP - 09/21/2022 10:52 AM EDT Subjective The history is provided by the patient. No cigar making supervisor was used. HPI Ben Arroyo is a 77 year old female who presents today for CC of cough, congestion and sore that, headache and body aches. She is feeling tired. This is day 5. She has not done a rapid - home test She has used tylenol cold and flu with out relief. She denies any known exposure to covid orother viral illnesses. BP 128/72 Pulse 81 Temp [...] have confirmed and edited as necessary, the [facility] Review of Systems Constitutional: Positive for [...] for higher level of care were discussed indetail warranting prompt ER evaluation. Holly Cardoza APRN.CNP documented in this encounterMercy Health St. [facility]08-04-2021 NoteHNO ID: [id number] Author: Florin Meyer MD Service: Cardiovascular Medicine [...] Greene MD Date: 02/06/2021 Time: 1:37 PM [facility] CVICU PROGRESS NOTE Service Date: 02/04/2021 Service [...] She moved to a new house in [place] approximately a year ago as she was no longer able to take care of her prior yard due to recurrent episodes of exertional chest pressure. Since moving to [place], patient has recently established care with Dr. [...] evaluation with an FFR and rotablation at [facility] this upcoming . ? However, patient reports that yesterday while laying on the couch, she developed severe substernal chest pressure starting in her lower chest and radiating upwards into her neck, jaw and back. She did experience associated nausea, diaphoresis and shortness of breath. She went back to [place] where she was given aspirin, morphine and 4 sublingual nitroglycerin with resolution of her symptoms. She was subsequently transferred to [facility] for further evaluation. ? Patient otherwise denies [...] (!) 59 (!) 55 (!) 54 Resp: 05 23 11 12 Temp: 36.8 ?C (98.2 ?F) TempSrc: (more content not included)...[facility]08-03-2021 NoteHNO ID: [id number] Author: Yessica Greene MD Service: Interventional Cardiology [...] the wrist with 1% lidocaine. 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 3. Statin use 4. Secondary cardiac prevention measures. SIGNATURE: Yessica Greene MD PATIENT NAME: Ben Arroyo DATE: February 03, 2021 TIME: 10:35 [facility]08-02-2021 NoteHNO ID: [id number] Author: Candido Sauceda MD Service: Hospital Medicine Author Type: Physician Type: Progress Notes Filed: 02/02/2021 2:39 PM Note Text: DEPARTMENT OF HOSPITAL MEDICINE PROGRESS NOTE SERVICE DATE: 02/02/2021 SERVICE TIME: 2:36 PM Hospital Medicine/Primary Attending: Candido sauceda MD NIGHT AND WEEKEND COVERAGE: [place] COVERAGE: After 7pm, please call cross cover pager #[phone] Subjective INTERVAL HPI: Pt was admitted with chest pain last night. Currently she is chest pain free. Cardiology has evaluated patient and plan is for [facility] today. MEDICATIONS: Reviewed Objective PHYSICAL EXAM: [...] been consulted, appreciate recs. Plan is for [facility] today. She has not tolerated BB [...] 90602/01/212125 -- 02/01/212129 activity - mobilize patient (ma,ms) VTE Prophylaxis: VTE prophylaxis appropriate Disposition: Home Plan of care discussed with: Patient SIGNATURE: Candido sauceda MD PATIENT NAME: Ben Arroyo DATE: February 02, 2021 TIME: 2:36 PM etx [id number] History of Past illness Narrative* Problem Noted Date Resolved Date Unstable angina 02/02/2021 02/04/2021 Chest pain 02/01/2021 02/04/2021 documented as of this encounter (statuses as of 09/21/2022) [facility] History of Past illness Narrative* Problem Noted Date Resolved Date Unstable angina 02/02/2021 02/04/2021 Chest pain 02/01/2021 02/04/2021 documented as of this encounter (statuses as of 09/22/2022) [facility]08-02-[facility]21 NoteHNO ID: [id number] Author: Marnie Basurto RN Service: Care Management [...] planning services during this admission, please call [phone]. Marnie Basurto RN February 02, 2021 9:27 AM SIGNATURE: Marnie Basurto RN PATIENT NAME: Ben Arroyo DATE: February 02, 2021 TIME: 9:26 AM PAGER/CONTACT #: [phone] Evaluation note* Diagnosis Onset Date Resolution Status H/O coronary artery bypass surgery June 16, 1999 acute History of coronary artery stent placement February 03, 2021 acute Hyperlipidemia acute Essential hypertension chron ic [facility] Work Phone: 1(483) 974-118412-14-1999 Evaluation note* Diagnosis Onset Date Resolution Status H/O coronary artery bypass surgery June 16, 1999 acute History of coronary artery stent placement February 03, 2021 acute Hyperlipidemia acute Essential hypertension chron ic Left ankle pain acute Left ankle sprain acute Varicose veins of left leg with edema acute [facility] Work Phone: 1(561) 254-162512-14-1999 Evaluation note* Diagnosis Onset Date Resolution Status Admit Date Chest pain acute December 12 1:34am Elevated troponin acute December 122024 1:34am H/O coronary artery bypass surgery June 16, 1999 acute December 12, 2 025 1:34am Uncontrolled hypertension acute December 12, 2024 1:34am Essential hypertension chronic Ju ne 2024 1:34am [facility] Work Phone: Evaluation note* Diagnosis Onset Date Resolution Status Left knee pain noneactive Osteoarthritis of left knee noneactive Osteoarthritis of left knee noneactive Internal derangement of left knee noneactive Left knee pain noneactive H/O coronary artery bypass surgery June 16, 1999 acute History of coronary artery stent placement February 03, 2021 acute Hyperlipidemia acute Essential hypertension chron ic [facility] Work Phone: Evaluation noteNo assessment information available [facility] Work Phone: Evaluation note* Diagnosis URI with cough and congestion- Primary documented in this encounter [facility] [place] [facility]* Diagnosis Onset Date Resolution Status Varicose veins of left leg with edema acute [facility] Work Phone: Evaluation note* Diagnosis Primary hypertension- Primary Unspecified essential hypertension Postsurgical percutaneous transluminal coronary angioplasty (PTCA) status Postsurgical percutaneous transluminal coronary angioplasty status Hx of CABG Postsurgical aortocoronary bypass status documented in this encounter [facility] [place] [facility]* Diagnosis Atherosclerosis of [place] coronary artery of [place] heart with angina pectoris [facility] Additional Instructions Please follow-up with your PCP for repeat blood work. Return for any worsening of your symptoms.[facility] Work Phone: Hospital Discharge instructionsAmbulatory Orders* Phase II, Outpatient Cardiac Rehab Location: [facility] Work Phone: Progress note Author Oni Berry [facility] Note Date/Time December 14, 2024 11:1 6am [facility] Medical Records Department [address] [place] [address] Progress Note - Cardiology 12/14/24 1106 MR#: [id number] Acct: [id number] Name: BEN ARROYO Rep #:[id number] : 1945 79 From: Oni Berry MD PCP: Dr. Adela Harley MD Status:ADM MAUREEN Location: ICU CVICU20 2-1 Subjective Subjective Has has no new complaints today. She wants to go home Objective Data Vital Signs: Vital Signs Temp Pulse Resp BP Pulse Ox O2 Del Method O2 Flow Rate 97.6 F L 74 16 136/66 H 97 Room Air 2 12/14/24 08:46 12/14/24 08:46 12/14/24 08:46 12/14/24 08:46 12/14/24 08:46 12/14/24 10:00 12/12/24 19:29 Oxygen Flow Rate (L/min) 2 Oxygen Delivery Method Room Air Weight: 92 lb 13.034 oz Body Mass Index (BMI) 18.4 Intake & Output: Intake and Output for Last 24 Hours 12/12/24 12/13/24 12/14/24 23:59 23:59 23:59 Intake Total 398.74 / 398.74 1240 / 1240 Output Total 560 / 560 Balance 398.74 / 398.74 680 / 680 Lab / Micro Data 12/14/24 06:07 12/14/24 06:07 Labs: Laboratory Results - last 24 hr 12/13/24 08:57: Activated Clotting Time 285 H 12/13/24 09:59: Activated Clotting Time 291 H 12/14/24 06:07: WBC 12.4 H, RBC 3.95 L, Hgb 11.5 L, Hct 33.4 L, MCV 84.6, MCH 29.1, MCHC 34.4, RDW Std Deviation 40.0, RDW Coeff of Niya 12.9, Plt Count 269, MPV 9.8, Sodium 130 L, Potassium 3.9, Chloride 99, Carbon Dioxide 18.5 L, Anion Gap 13, BUN 9, Creatinine 0.55 L, Estim Creat Clear Calc 39.14 L, Est GFR (MDRD)Non-Af 95, BUN/Creatinine Ratio 16.2, Glucose 85, Calcium 8.7, Total Bilirubin 0.85, AST 44 H, ALT 12, Alkaline Phosphatase 54, Total Protein 6.6, Albumin 4.0,Globulin 2.7, Albumin/Globulin Ratio 1.5 Rhythm Strip Rhythm Strip: Sinus Rhythm Rate: 62 Cardiology Labs/Tests 12/14/24 06:07: WBC 12.4 H, RBC 3.95 L, Hgb 11.5 L, Hct 33.4 L, MCV 84.6, MCH 29.1, MCHC 34.4, Plt Count 269, MPV 9.8, Sodium 130 L, Potassium 3.9, Chloride 99, Carbon Dioxide 18.5 L, Anion Gap 13, BUN 9, Creatinine 0.55 L, Est GFR (MDRD) Non-Af 95, BUN/Creatinine Ratio 16.2, Glucose 85, Calcium 8.7, Total Bilirubin 0.85 Rhythm: EKG: ECHO: Stress Test: Cardiac Cath: PCI: CT Surgery: Holter monitor: EPS: PPM: CXR: Chest CT Scan: Physical Exam Narrative General?alert oriented HEENT- normal extraocular movements Neck supple no JVD Cardiovascular- normal S1-S2, no murmurs Pulmonary- clear to auscultation bilaterally Abdomen- soft to palpation, normal sounds Extremities- no edema Musculoskeletal- no tenderness no swelling Neurological -alert oriented Psych -normal affect Assessment & Plan Assessment/Plan (1) CAD (coronary artery disease): PLAN: Plan 1. Acute coronary syndrome-again patient underwent insertion of CARLENE with lithotripsy to the right coronary artery today. No chest pain no complaints. Will plan to discharge home today follow-up in the office. Continue aspirin statin Plavix 2 Essential vyvjgpxqmcwy-qxfz-xbogiecxjb 3 hyperlipidemia-patient is on a statin 4 hypothyroidism-patient is on Synthroid Plan follow-up in office. 12/14/24 1116 <Electronically signed by Oni Berry MD> Cosigner Signature (if applicable): CC: ~ Signed [facility] Work Phone: Reason for referral (narrative)No reason for referral information availableWAccess Hospital [facility] Work Phone: Summary Purpose Family History No Family History Records Found Relationship Condition Age at Onset Recorded Date/T phillip sister Malignant neoplasm of breast Unknown grandmother Malignant neoplasm of breast Unknown father Cerebrovascular accident (CVA) Unknown Myocardial infarction Unknown mother Parkinson's disease Unknown brother Seizure Unknown Cerebrovascular accident (CVA) Unknown Advance Directives No Advanced Directives Records FoundDocuments on File Type Date Recorded Patient Certified Professional Midwife Expl anation Advance Directives/Living Will 01/30/2019 10:24 AM Documents on File Type Date Recorded Patient Certified Professional Midwife Expl anation Advance Directives/Living Will 01/30/2019 10:24 AM Advance Directive Response Recorded Date/ Time Advance Directives Yes January 26 9:11am Living Will Yes September 11, 2021 7:37am Power of Order Processor Yes September 11 7:37am Advance Directive Response Recorded Date/ Time Advance Directives Yes January 26 8:11am Living Will Yes September 11, 2021 6:37am Power of Order Processor Yes September 11 6:37am Advance Directive Response Recorded Date/ Time Name of Medical Power of Order Processor DAUGHTERS January 23, 2023 6:14pm Advance Directives Yes January 26 9:11am Living Will Yes January 23, 2023 6:14pm Power of Order Processor Yes January 23 6:14pm Advance Directive Response Recorded Date/ Time Advance Directives Yes January 26 8:11am Living Will Yes January 23, 2023 5:14pm Power of Order Processor Yes January 23 5:14pm Advance Directive Response Recorded Date/ Time Do you have a Healthcare Power of Order Processor? Yes December 11, 2024 7:27pm Advance Directives Yes January 26 9:11am Advance Directive Response Recorded Date/ Time Do you have a Healthcare Power of Order Processor? Yes December 12, 2024 2:36am Advance Directives Yes January 26 9:11am Advance Directive Response Recorded Date/ Time Do you have a Healthcare Power of Order Processor? Yes December 12, 2024 2:36am Advance Directives on File Yes December 24, 2024 2:23pm Living Will Yes December 24, 2024 2:23pm Do you have a Healthcare Power of Order Processor? Yes December 24, 2024 2:23pm Advance Directives Yes January 26 9:11am Reason for Referral Status Reason Specialty Diagnoses / Procedures Referred By Contact Referred To Contact New Request Diagnoses Post-menopausal Procedures BONE DENSITY AXIAL (HIP, PELVIS, SPINE) Diana Thomason MD [address] [place] [id number] Status Reason Specialty Diagnoses / Procedures Referre d By Contact Referred To Contact Closed Diagnoses Post-menopausal Procedures BONE DENSITY AXIAL (HIP, PELVIS, SPINE) Diana Thomason MD [address] [place] [address] Status Reason Specialty Diagnoses / Procedures Referred By Contact Referred To Contact Open General Surgery Diagnoses Epigastric pain Gastroesophageal reflux disease without esophagitis Diana Thomason MD [address] [facility] [place] [address] Mario Calabrese, DO [address] [facility] [facility] [place] [address] [place] [address] Status Reason Specialty Diagnoses / Procedures Re ferred By Contact Referred To Contact New Request Diagnoses Pre-operative cardiovascular examination Procedures ECG JeffreymontserratDenis bailon, DO [address] [facility] [place] [address] History of Present Illness * Diana Thomason [...] Atherosclerosis of coronary artery bypass graft of [place] heart without angina pectoris Chronic stable, continue [...] Physical Exam documented in this encounter* Leah Rodgers, JASON-PROFESSOR OF VOICE - 10/26/2018 9:00 AM EDT Chief Complaint [...] Chest pain, unspecified type EKG shows previous NV, no acute episode. - [place] ELECTROCARDIOGRAM, COMPLETE 2. Epigastric pain Suspect gastritis, [...] is a 73 y.[facility]. [facility] for preop cardiovascular exam. In [...] imaging protocol was followed using Tc-99m tetrofosmin (Biz In [employer] Box JV) injected intravenously. For the rest portion of [...] Laterality: N/A; Surgeon: Dagoberto Gilbert DO; Location: [facility] ENDOSCOPY BUNIONECTOMY 08/2008 Jammer toe [...] file Gets together: Not on file Attends tenriism service: Not on file Active member of [...] Atherosclerosis of coronary artery bypass graft of [place] heart without angina pectoris Change med to [...] Atherosclerosis of coronary artery bypass graft of [place] heart without angina pectoris Chronic stable, continue [...] Atherosclerosis of coronary artery bypass graft of [place] heart without angina pectoris Chronic stable, continue [...] Atherosclerosis of coronary artery bypass graft of [place] heart without angina pectoris Acquired hypothyroidism Unspecified [...] Atherosclerosis of coronary artery bypass graft of [place] heart without angina pectoris Acquired hypothyroidism Unspecified hypothyroidism Pure hypercholesterolemia Hormone replacement therapy (postmenopausal) Need for prophylactic hormone replacement therapy (postmenopausal) Hyponatremia Hyposmolality and/or hyponatremia Postmenopausal atrophic vaginitis Hiatal hernia Diaphragmatic hernia without mention of obstruction or gangrene Diagnosis Atherosclerosis of coronary artery bypass graft of [place] heart without angina pectoris Pure hypercholesterolemia Acquired hypothyroidism Unspecified hypothyroidism Postmenopausal atrophic vaginitis Essential hypertension Unspecified essential hypertension Hyponatremia Hyposmolality and/or hyponatremia Diagnosis Essential hypertension Unspecified essential hypertension 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 [place], [place] [id number]. All rights reserved. This information is not intended as a substitute for professional medical care. Always follow yourhealthcare professional's instructions. documented in this encounter* Patient Instructions* Rina Leon RN - 01/30/2019 9:30 AM EDT Thank you for choosing [facility]. Your surgery date is TuesdayFebruary 06 Please call [phone] For your convenience, please call (between 9AM [...] notified if your arrival time changes. At [facility]'s Surgery Department, we strive to make [...] Tuesday, 8:00 am to 4:30 pm at [phone]. For surgical questions during evenings or weekends, please call [phone] and ask the cnc mill operator to page the Nursing Nutrition Intern. Discontinue any blood thinners such as Aspirin, [...] skin creams or lotions. Any make-up, nail maldivian and lipstick will need to be removed [...] their cases with you for proper storage. [facility] will not be responsible for lost [...] fetus. 12. No alcohol 48-hours or illicit [id number] prior to your surgery. 13. Do not [...] in the front main lot facing [address]. Enter through the front entrance and sign in at the [facility]. Thank you for allowing us the privilege [...] chances for infection. Controlled body temperature. A ujndv-exch-dhhvlq temperature during or after surgery prevents oxygen [...] and water or with an alcohol-based hand basting cleaner before and after caring for you. [...] tired feeling that doesn t go away [id number] [employer]. [address] [place] [address]. All rights reserved. This information is not intended as a substitute for professional medical care. Always follow yourhealthcare professional's instructions. Please record date and time of your medications on this sheet and bring this with you on the day ofsurgery. Yellow - take the day of surgery [place] - hold according to the doctor's instructions [...] 9:30 AM EDT Thank you for choosing [facility]. Your surgery date is TuesdayFebruary 06 Please call [phone] For your convenience, please call (between 9AM [...] notified if your arrival time changes. At [facility]'s Surgery Department, we strive to make [...] Tuesday, 8:00 am to 4:30 pm at [phone]. For surgical questions during evenings or weekends, please call [phone] and ask the cnc mill operator to page the Nursing Nutrition Intern. Discontinue any blood thinners such as Aspirin, [...] skin creams or lotions. Any make-up, nail maldivian and lipstick will need to be removed [...] their cases with you for proper storage. [facility] will not be responsible for lost [...] fetus. 12. No alcohol 48-hours or illicit [id number] prior to your surgery. 13. Do not [...] questions or concerns. DIRECTIONS: Park in the [facility] facing [address]. Enter through the front entrance and sign in at the Registration Desk at the [facility]. Thank you for allowing us the privilege [...] chances for infection. Controlled body temperature. A kpsha-kuno-oxutke temperature during or after surgery prevents oxygen [...] and water or with an alcohol-based hand basting cleaner before and after caring for you. [...] tired feeling that doesn t go away [phone] [employer]. [address] [place] [address]. All rights reserved. This information is not intended as a substitute for professional medical care. Always follow yourhealthcare professional's instructions. Please record date and time of your medications on this sheet and bring this with you on the day ofsurgery. Yellow - take the day of surgery [place] - hold according to the doctor's instructions [...] or shortness of breath Date Last Reviewed: 01/02/201619997855-4286 [employer]. [address] [place] [address]. All rights reserved. This information is not [...] ft leg with edema Chief Complaint FALL Chief Complaint Admit Date INT LABS August 27, 2024 6:23am UNSTABLE ANGINA December 12, 2024 1:34 am Reason for Visit Admit Date Chest pain December 12, 2024 1:34 am Elevated troponin December 12, 2024 1:34 am H/O coronary artery bypass surgery December 12, 2024 1:34am Uncontrolled hypertension December 12 1:34am Essential hypertension December 12, 2024 1 :34am Chief Complaint Admit Date INT LABS August 27, 2024 6:23am UNSTABLE ANGINA December 12, 2024 1:34 am UNSTABLE ANGINA December 12, 2024 8:46 am Referral Order December 13, 2024 2:16 pm Reason for Visit Admit Date Chest pain December 12, 2024 1:34 am Elevated troponin December 12, 2024 1:34 am H/O coronary artery bypass surgery December 12, 2024 1:34am Hyperlipidemia December 12, 2024 1:34 am Uncontrolled hypertension December 12 1:34am Atherosclerosis of coronary artery of [place] heart without angina pectoris December 12, 2024 1:34am Essential hypertension December 12, 2024 1 :34am Breast cancer December 12, 2024 1:34 am Chief Complaint Admit Date INT LABS August 27, 2024 6:23am UNSTABLE ANGINA December 12, 2024 1:34 am UNSTABLE ANGINA December 12, 2024 8:46 am Referral Order December 13, 2024 2:16 pm UNSTABLE ANGINA December 13, 2024 6:45 pm UNSTABLE ANGINA December 14, 2024 11:0 6am Reason for Visit Admit Date CAD (coronary artery disease) December 12, 2024 1:34am Chest pain December 12, 2024 1:34 am Elevated troponin December 12, 2024 1:34 am H/O coronary artery bypass surgery December 12, 2024 1:34am Hyperlipidemia December 12, 2024 1:34 am Uncontrolled hypertension December 12 1:34am Atherosclerosis of coronary artery of [place] heart without angina pectoris December 12, 2024 1:34am Essential hypertension December 12, 2024 1 :34am Breast cancer December 12, 2024 1:34 am Chief Complaint Admit Date UNSTABLE ANGINA December 12, 2024 1:34 am UNSTABLE ANGINA December 12, 2024 8:46 am Referral Order December 13, 2024 2:16 pm UNSTABLE ANGINA December 13, 2024 6:45 pm UNSTABLE ANGINA December 14, 2024 9:50 am UNSTABLE ANGINA December 14, 2024 11:0 6am Amb Documentation December 17, 2024 9:56 am PCI w/stenting December 24, 2024 2:00 pm Reason for Visit Admit Date CAD (coronary artery disease) December 12, 2024 1:34am Hyperlipidemia December 12, 2024 1:34 am Essential hypertension December 12, 2024 1 :34am Breast cancer December 12, 2024 1:34 am Atherosclerosis of coronary artery of [place] heart without angina pectoris December 12, 2024 1:34am Chest pain December 12, 2024 1:34 am Elevated troponin December 12, 2024 1:34 am H/O coronary artery bypass surgery December 12, 2024 1:34am Uncontrolled hypertension December 12 1:34am Chief Complaint Admit Date UNSTABLE ANGINA December 12, 2024 1:34 am UNSTABLE ANGINA December 12, 2024 8:46 am Referral Order December 13, 2024 2:16 pm UNSTABLE ANGINA December 13, 2024 6:45 pm UNSTABLE ANGINA December 14, 2024 9:50 am UNSTABLE ANGINA December 14, 2024 11:0 6am Amb Documentation December 17, 2024 9:56 am PCI w/stenting December 24, 2024 2:00 pm PCI with stenting December 31, 2024 1:54 pm Chief Complaint Admit Date UNSTABLE ANGINA December 12, 2024 1:34 am UNSTABLE ANGINA December 12, 2024 8:46 am Referral Order December 13, 2024 2:16 pm UNSTABLE ANGINA December 13, 2024 6:45 pm UNSTABLE ANGINA December 14, 2024 9:50 am UNSTABLE ANGINA December 14, 2024 11:0 6am Amb Documentation December 17, 2024 9:56 am PCI w/stenting December 24, 2024 2:00 pm PCI with stenting December 31, 2024 1:54 pm PCI with stenting January 09, 2025 9:30a m 1 Y FU/ S/P WC Unstable Angina January 10:58am Chief Complaint Admit Date UNSTABLE ANGINA December 12, 2024 1:34 am UNSTABLE ANGINA December 12, 2024 8:46 am Referral Order December 13, 2024 2:16 pm UNSTABLE ANGINA December 13, 2024 6:45 pm UNSTABLE ANGINA December 14, 2024 9:50 am UNSTABLE ANGINA December 14, 2024 11:0 6am Amb Documentation December 17, 2024 9:56 am PCI w/stenting December 24, 2024 2:00 pm PCI with stenting December 31, 2024 1:54 pm 1 Y FU/ S/P WC Unstable Angina January 10:58am PCI with stenting January 30, 2025 9:30 am Reason for Visit Admit Date CAD (coronary artery disease) December 12, 2024 1:34am Hyperlipidemia December 12, 2024 1:34 am Essential hypertension December 12, 2024 1 :34am Breast cancer December 12, 2024 1:34 am Atherosclerosis of coronary artery of [place] heart without angina pectoris December 12, 2024 1:34am Chest pain December 12, 2024 1:34 am Elevated troponin December 12, 2024 1:34 am H/O coronary artery bypass surgery December 12, 2024 1:34am Uncontrolled hypertension December 12 1:34am CAD (coronary artery disease) January 09, 2025 10:58am Hyperlipidemia January 09, 2025 10:58 am Essential hypertension January 09, 2025 10 :58am Health Concerns Infection Onset Date Last Indicated Resolved Time COVID-19 Rule-Out 09/21/2022 09/21/2022 Infection Onset Date Last Indicated Resolved Time COVID-19 Rule-Out 09/21/2022 09/21/2022 09/22/2022 12:09 AM EDT COVID-19 Confirmed 09/21/2022 09/21/2022 Additional Source Comments INFORMATION SOURCE (unrecogn ized section and content) DATE CREATED AUTHOR 2018 [facility] DATE CREATED AUTHOR AUTHOR'S ORGANIZ ATION 03/03/2020 [facility] DATE CREATED AUTHOR AUTHOR'S ORGANIZ ATION 04/23/2021 [facility] DATE CREATED AUTHOR AUTHOR'S ORGANIZ ATION 02/19/2025 [facility] DATE CREATED AUTHOR AUTHOR'S ORGANIZ ATION 02/24/2025 [facility] [place] Reason for Visit (unrecogniz ed section and content) Reason Comments Medication Refill Reason Comments Results Menopause Thyroid Problem Hypercholesterol Atherosclerosis Status Reason Specialty Diagnoses / Procedures Referre d By Contact Referred To Contact Closed Diagnoses Post-menopausal Procedures BONE DENSITY AXIAL (HIP, PELVIS, SPINE) Diana Thomason MD [address] [place] [address] Reason Comments Abdominal Pain Started last tuesday feels like she has flu Reason Comments Medication Problem Reason Comments GI Problem gastritis Status Reason Specialty Diagnoses / Procedures Re ferred By Contact Referred To Contact Diagnoses Gastroesophageal reflux disease, esophagitis presence not specified Right upper quadrant pain Gastroesophageal reflux disease, esophagitis presence not specified [K21.9] Right upper quadrant pain [R10.11] Procedures [place] ESOPHAGOGASTRODUODENOSCOPY TRANSORAL DIAGNOSTIC EGD DIAGNOSTIC Reason Comments New Patient Pre-op Exam Status Reason Specialty Diagnoses / Procedures Referred By Contact Referred To Contact Closed Cardiovascular Medicine Diagnoses Preop cardiovascular exam AnayadiDagoberto Ganga, DO [address] [place] [address] Denis Bass DO [address] [place] [address] Reason Comments Preoperative Assessment 02/06/19 Reason Comments Lab Review Hypertension Hypothyroidism Hyperlipidemia Abdominal Pain Reason Comments Diarrhea diarrhea Reason Comments Results Hypertension Thyroid Problem Hyperlipidemia Menopause Reason Comments Results Hypertension Hyperlipidemia Coronary Atherosclerosis Thyroid Problem Status Reason Specialty Diagnoses / Procedures Referre d By Contact Referred To Contact Diagnoses Abdominal pain, right upper quadrant [R10.11] AnayadiDagoberto, DO [address] [place] [address] Reason Comments Error Reason Comments Sore Throat ST, bodyaches, FERNANDO, d amanda, cough and weakness x 5 days Reason Comments Results Reason Comments Follow Up 6 month follow up, s tent placed at [facility] on 12/13/24 by - second opinion, currently seeing [facility] Care Teams (unrecognized sec tion and content) Oil Deliverer Relationship Specialty Start Date End Date Diana Thomason MD [address] [place] [address] PCP - General Family Medicine 05/12/16 Team Status: Active Member Role Status Dates Dr. Adela Harley MD Primary Care Provider Active Team Status: Inactive Member Role Status Dates Dr. Adela Harley MD Primary Care Provider Active Aicha Mims BORDER GUARD, BORDER GUARD-C Attending Provider, Referring P sadaf Active Team Status: Inactive Member Role Status Dates Dr. Adela Harley MD Primary Care Prov ider, Attending Provider, Referring Provider Active Oil Deliverer Relationship Specialty Start Date End Date Adela Harley MD [address] [address] PCP - General Family Medicine 02/02/21 Oil Deliverer Relationship Specialty Start Date End Date Adela Harley MD [address] [place] [address] PCP - General Family Medicine 02/02/21 Team Status: Inactive Member Role Status Dates Dr. Adela Harley MD Primary Care Provider, Referrin g Provider Active Aicha Mims BORDER GUARD, BORDER GUARD-C Attending Provider Active Team Status: Inactive Member [...] Harley MD Primary Care Provider Active Aicha Mims BORDER GUARD, BORDER GUARD-C Attending Provider Active Team Status: Inactive Member [...] Dr. Nick Swenson DO Emergency Provider Active Oil Deliverer Relationship Specialty Start Date End Date Adela Harley MD [address] [place] [address] PCP - General Family Medicine 02/02/21 Team Status: Inactive Member Role Status Dates Dr. Adela Harley MD Primary Care Provider Active Start: August 27, 2024 End: August 27, 2024 Dr. Adela Harley MD Attending Provider Active Start: August 27, 2024 End: August 27, 2024 Dr. Adela Harley MD Referring Provider Active Start: August 27, 2024 End: August 27, 2024 Aicha Mims BORDER GUARD, BORDER GUARD-C Other Provider Active Sta rt: August 27, 2024 End: August 27, 2024 Team Status: Active Member Role Status Dates Dr. Adela Harley MD Primary Care Provider Active Start: December 12, 2024 Dr. Sadi De Los Santos DO Emergency Provider Active Start: December 12, 2024 Dr. Mary Anne Tijerina DO Admit Provider Active Start : December 12, 2024 Dr. Mary Anne Tijerina DO Attending Provider Active S tart: December 12, 2024 Team Status: Active Member Role Status Dates Dr. Adela Harley MD Primary Care Provider Active Start: December 12, 2024 Dr. Sadi De Los Santos DO Emergency Provider Active Start: December 12, 2024 Dr. Mary Anne Tijerina DO Admit Provider Active Start : December 12, 2024 Dr. Mary nAne Tijerina DO Other Provider Active Start : December 12, 2024 Dr. Khanh Hernandez MD Other Provider Active St art: December 12, 2024 Dr. Ramón Qiu DO Attending Provider Active Start: December 12, 2024 Team Status: Active Member Role Status Dates Dr. Adela Harley MD Primary Care Provider Active Start: December 12, 2024 Dr. Sadi De Los Santos DO Emergency Provider Active Start: December 12, 2024 Dr. Mary Anne Tijerina DO Admit Provider Active Start : December 12, 2024 Dr. Mary Anne Tijerina DO Other Provider Active Start : December 12, 2024 Dr. Khanh Hernandez MD Attending Provider Active Start: December 12, 2024 Dr. Khanh Hernandez MD Other Provider Active St art: December 12, 2024 Dr. Ramón Qiu DO Other Provider Active S tart: December 12, 2024 Team Status: Active Member Role Status Dates Dr. Adela Harley MD Primary Care Provider Active Start: December 12, 2024 Dr. Sukumar Saldaña MD Attending Provider Active Start: December 12, 2024 Team Status: Active Member Role Status Dates Dr. Adela Harley MD Primary Care Provider Active Start: December 13, 2024 Dr. Sukumar Saldaña MD Attending Provider Active Start: December 13, 2024 Team Status: Inactive Member Role Status Dates Dr. Adela Harley MD Primary Care Provider Active Start: December 12, 2024 End: December 14, 2024 Dr. Sadi De Los Santos DO Emergency Provider Active Start: December 12, 2024 End: December 14, 2024 Dr. Mary Anne Tijerina DO Admit Provider Active Start : December 12, 2024 End: December 14, 2024 Dr. Mary Anne Tijerina DO Other Provider Active Start : December 12, 2024 End: December 14, 2024 Dr. Khanh Hernandez MD Other Provider Active St art: December 12, 2024 End: December 14, 2024 Dr. Ramón Qiu DO Attending Provider Active Start: December 12, 2024 End: December 14, 2024 Team Status: Active Member Role Status Dates Dr. Adela Harley MD Primary Care Provider Active Start: December 13, 2024 Dr. Sadi De Los Santos DO Emergency Provider Active Start: December 13, 2024 Dr. Mary Anne Tijerina DO Admit Provider Active Start : December 13, 2024 Dr. Mary Anne Tijerina DO Other Provider Active Start : December 13, 2024 Dr. Khanh Hernandez MD Other Provider Active St art: December 13, 2024 Dr. Ramón Qiu DO Attending Provider Active Start: December 13, 2024 Dr. Ramón Qiu DO Other Provider Active S tart: December 13, 2024 Team Status: Active Member Role Status Dates Dr. Adela Harley MD Primary Care Provider Active Start: December 14, 2024 Dr. Sadi De Los Santos DO Emergency Provider Active Start: December 14, 2024 Dr. Mary Anne Tijerina DO Admit Provider Active Start : December 14, 2024 Dr. Mary Anne Tijerina DO Other Provider Active Start : December 14, 2024 Dr. Khanh Hernandez MD Other Provider Active St art: December 14, 2024 Dr. Ramón Qiu DO Other Provider Active S tart: December 14, 2024 Dr. Oni Berry MD Attending Provider Active Start: December 14, 2024 Team Status: Active Member Role Status Dates Dr. Adela Harley MD Primary Care Provider Active Start: December 14, 2024 Dr. Sadi De Los Santos DO Emergency Provider Active Start: December 14, 2024 Dr. Mary Anne Tijerina DO Admit Provider Active Start : December 14, 2024 Dr. Mary Anne Tijerina DO Other Provider Active Start : December 14, 2024 Dr. Khanh Hernandez MD Other Provider Active St art: December 14, 2024 Dr. Ramón Qiu DO Attending Provider Active Start: December 14, 2024 Dr. Ramón Qiu DO Other Provider Active S tart: December 14, 2024 Team Status: Active Member Role Status Dates Dr. Adela Harley MD Primary Care Provider Active Start: December 17, 2024 Kay Jane RN Attending Provider Active Start: December 17, 2024 Team Status: Inactive Member Role Status Dates Dr. Adela Harley MD Primary Care Provider Active Start: December 24, 2024 End: December 24, 2024 Dr. Sukumar Saldaña MD Attending Provider Active Start: December 24, 2024 End: December 24, 2024 Dr. Sukumar Saldaña MD Referring Provider Active Start: December 24, 2024 End: December 24, 2024 Team Status: Active Member Role/Relationship Status Dates Dr. Adela Harley MD Primary Care Provider Active Team Status: Inactive Member Role/Relationship Status Dates Dr. Adela Harley MD Primary Care Provider Active Start: December 12, 2024 End: December 14, 2024 Dr. Sadi De Los Santos DO Emergency Provider Active Start: December 12, 2024 End: December 14, 2024 Dr. Mary Anne Tijerina DO Admit Provider Active Start : December 12, 2024 End: December 14, 2024 Dr. Mary Anne Tijerina DO Other Provider Active Start : December 12, 2024 End: December 14, 2024 Dr. Khanh Hernandez MD Other Provider Active St art: December 12, 2024 End: December 14, 2024 Dr. Ramón Qiu DO Attending Provider Active Start: December 12, 2024 End: December 14, 2024 Team Status: Active Member Role/Relationship Status Dates Dr. Adela Harley MD Primary Care Provider Active Start: December 12, 2024 Dr. Sadi De Los Santos DO Emergency Provider Active Start: December 12, 2024 Dr. Mary Anne Tijerina DO Admit Provider Active Start : December 12, 2024 Dr. Mary Anne Tijerina DO Other Provider Active Start : December 12, 2024 Dr. Khanh Hernandez MD Attending Provider Active Start: December 12, 2024 Dr. Khanh Hernandez MD Other Provider Active St art: December 12, 2024 Dr. Ramón Qiu DO Other Provider Active S tart: December 12, 2024 Team Status: Active Member Role/Relationship Status Dates Dr. Adela Harley MD Primary Care Provider Active Start: December 12, 2024 Dr. Sukumar Saldaña MD Attending Provider Active Start: December 12, 2024 Team Status: Active Member Role/Relationship Status Dates Dr. Adela Harley MD Primary Care Provider Active Start: December 13, 2024 Dr. Sukumar Saldaña MD Attending Provider Active Start: December 13, 2024 Team Status: Active Member Role/Relationship Status Dates Dr. Adela Harley MD Primary Care Provider Active Start: December 13, 2024 Dr. Sadi De Los Santos DO Emergency Provider Active Start: December 13, 2024 Dr. Mary Anne Tijerina DO Admit Provider Active Start : December 13, 2024 Dr. Mary Anne Tijerina DO Other Provider Active Start : December 13, 2024 Dr. Khanh Hernandez MD Other Provider Active St art: December 13, 2024 Dr. Ramón Qiu DO Attending Provider Active Start: December 13, 2024 Dr. Ramón Qiu DO Other Provider Active S tart: December 13, 2024 Team Status: Active Member Role/Relationship Status Dates Dr. Adela Harley MD Primary Care Provider Active Start: December 14, 2024 Dr. Sadi De Los Santos DO Emergency Provider Active Start: December 14, 2024 Dr. Mary Anne Tijerina DO Admit Provider Active Start : December 14, 2024 Dr. Mary Anne Tijerina DO Other Provider Active Start : December 14, 2024 Dr. Khanh Hernandez MD Other Provider Active St art: December 14, 2024 Dr. Ramón Qiu DO Attending Provider Active Start: December 14, 2024 Dr. Ramón Qiu DO Other Provider Active S tart: December 14, 2024 Team Status: Active Member Role/Relationship Status Dates Dr. Adela Harley MD Primary Care Provider Active Start: December 14, 2024 Dr. Sadi De Los Santos DO Emergency Provider Active Start: December 14, 2024 Dr. Mary Anne Tijerina DO Admit Provider Active Start : December 14, 2024 Dr. Mary Anne Tijerina DO Other Provider Active Start : December 14, 2024 Dr. Khanh Hernandez MD Other Provider Active St art: December 14, 2024 Dr. Ramón Qiu DO Other Provider Active S tart: December 14, 2024 Dr. Oni Berry MD Attending Provider Active Start: December 14, 2024 Team Status: Active Member Role/Relationship Status Dates Dr. Adela Harley MD Primary Care Provider Active Start: December 17, 2024 Kay Jane RN Attending Provider Active Start: December 17, 2024 Team Status: Inactive Member Role/Relationship Status Dates Dr. Adela Harley MD Primary Care Provider Active Start: December 24, 2024 End: December 24, 2024 Dr. Sukumar Saldaña MD Attending Provider Active Start: December 24, 2024 End: December 24, 2024 Dr. Sukumar Saldaña MD Referring Provider Active Start: December 24, 2024 End: December 24, 2024 Team Status: Inactive Member Role/Relationship Status Dates Dr. Adela Harley MD Primary Care Provider Active Start: December 31, 2024 End: December 31, 2024 Dr. Sukumar Saldaña MD Attending Provider Active Start: December 31, 2024 End: December 31, 2024 Dr. Sukumar Saldaña MD Referring Provider Active Start: December 31, 2024 End: December 31, 2024 Team Status: Active Member Role/Relationship Status Dates Dr. Adela Harley MD Primary Care Provider Active Start: January 09, 2025 Dr. Sukumar Saldaña MD Attending Provider Active Start: January 09, 2025 Dr. Sukumar Saldaña MD Referring Provider Active Start: January 09, 2025 Team Status: Inactive Member Role/Relationship Status Dates Dr. Adela Harley MD Primary Care Provider Active Start: January 09, 2025 End: January 09, 2025 Dr. Adela Harley MD Referring Provider Active Start: January 09, 2025 End: January 09, 2025 Dr. Khanh Hernandez MD Attending Provider Active Start: January 09, 2025 End: January 09, 2025 Team Status: Inactive Member Role/Relationship Status Dates Dr. Adela Harley MD Primary Care Provider Active Start: January 01, 2025 Dr. Isabell Lowe MD Attending Provider Active Start: January 01, 2025 Team Status: Inactive Member Role/Relationship Status Dates Dr. Adela Harley MD Primary Care Provider Active Start: January 30, 2025 End: January 31, 2025 Dr. Sukumar Saldaña MD Attending Provider Active Start: January 30, 2025 End: January 31, 2025 Dr. Sukumar Saldaña MD Referring Provider Active Start: January 30, 2025 End: January 31, 2025 Oil Deliverer Relationship Specialty Start Date End Date Adela Harley MD [address] [facility] [place] [address] PCP - General Family Medicine 02/02/21 Goals [...] or prosecute any alcohol or drug abuse patient.[facility] the event this information is protected by the Federal Confidentiality of Alcohol and Drug Abuse Patient Records regulations: The Federal rules restrict any use of the information to criminally investigate or prosecute any alcohol or drug abuse patient.[facility] the event this information is protected by the Federal Confidentiality of Alcohol and Drug Abuse Patient Records regulations: The Federal rules restrict any use of the information to criminally investigate or prosecute any alcohol or drug abuse patient.[facility] the event this information is protected by the Federal Confidentiality of Alcohol and Drug Abuse Patient Records regulations: The Federal rules restrict any use of the information to criminally investigate or prosecute any alcohol or drug abuse patient.[facility] FOR RECORDS PERTAINING TO PATIENTS WHO [...] BE BASED ON THE PRIMARY CLINICAL RECORDS. [facility] [employer] [facility]. provides no warranty or guarantee of the accuracy or completeness of information in this document.
[2025-02-25 08:09] LABS: AST(SGOT) 27 U/L (<=31); Alanine Aminotransfer ALT/SGPT 12 U/L (<=34); Albumin, Serum 4.5 g/dL (3.4-4.8); Alkaline Phosphatase 52 U/L (35-104); Bilirubin, Direct 0.32 mg/dL (0.00-0.30); Cholesterol 141 mg/dL (<=200); Globulin 3.2 g/dL (2.2-4.2); Low Density Lipoprotein Calc. 51 mg/dL; Triglycerides 87 mg/dL; Very Low Density Lipoprotein 17 mg/dL (5-40); cholesterol:hdl ratio screen 1.94
[2025-02-25 09:34] LABS: Hematocrit 38.6 % (37-47); Hemoglobin 12.9 g/dL (12.0-15.0); Immature Granulocytes Count 0.030 X10^3/uL (0.0-0.0); Mean Corp Hgb Conc 33.4 g/dL (32-36); Mean Corpuscular Volume 84.6 fL (81-99); Mean Platelet Vol. 9.7 fl (6.2-12.0); NRBC Flagged by Analyzer 0 % (0-5); Platelet Count 298 K/mm3 (150-450); RBC Distribution Width CV 12.4 % (11.6-14.6); RBC Distribution Width SD 37.8 fl (35.1-43.9); Red Blood Count 4.56 M/mm3 (4.2-5.4); White Blood Count 8.2 K/mm3 (4.4-11.0)
[2025-02-25 10:13] LABS: Anion Gap 14 (5-15); BUN 13 mg/dL (4-19); BUN/Creat Ratio 17.4 RATIO (10-20); Calcium,Total 9.6 mg/dL (7.6-11.0); Carbon Dioxide 21.9 mmol/L (21.0-32.0); Chloride 92 mmol/L (98-108); Ferritin 131 ng/mL (22-378); Glucose 86 mg/dL (70-99); Potassium 4.4 mmol/L (3.3-5.1); Vitamin D,25 Hydroxy 76.7 ng/mL (30-100)
== END | disposition home or self-care (01) ==
LOC: LAB 06:28
PROVIDERS: PCP Family Medicine; Referring Provider Nurse Practitioner Family; Visit Provider Nurse Practitioner Family
DX: I25.10 Atherosclerotic heart disease of native coronary artery without angina pectoris (principal); Z79.899 Other long term (current) drug therapy; E03.9 Hypothyroidism, unspecified; E87.1 Hypo-osmolality and hyponatremia; M81.0 Age-related osteoporosis without current pathological fracture; D64.9 Anemia, unspecified
CPT/HCPCS: 36415; 80048; 80061; 80076; 82306; 82728; 84443; 85025

== ENCOUNTER 2025-03-01 09:30 | Outpatient (RCR) | payer MEDICARE, SELFPAY ==
[2025-01-21 08:17] VITALS: BMI 18.9
--- NOTE | 2025-02-19 08:51 | PCM.CR.ITP ---
Exercise - Initial Assessment Physician Prescribed Exercise Modalities: Treadmill, SciFit Stepper and SciFit Pro-II Ergometer Nutrition - Initial Assessment Weight Mgt (Other Care) Height: 4 ft 11 in Weight:: 95 lb BMI: 19.1 BMI (Report if calculated above): 19 Core - Initial Assessment Hypertension Resting Blood Pressure:: 142/70 [place] [employer] Hypertension Guidelines Psychosocial - Initial Assess Target Goals Target Goals Referral to Behavioral Health PS - Interventions: Yes: Attend Stress Management Classes Patient Health Questionnaire PHQ-9 Screening 60-Day Re-eval Assessment: 1. Little interest or pleasure in doing things: Not at all 2. Feeling down, depressed, or hopeless: Not at all 3. Trouble falling or staying asleep, or sleeping too much: Not at all 4. Feeling tired or having little energy: Several days 5. Poor appetite or overeating: Several days 6. Feeling bad about yourself -- or that you are a failure or have let yourself or your family down: Not at all 7. Trouble concentrating on things, such as reading the newspaper or watching television: Not at all 8. Moving or speaking so slowly that other people could have noticed. Or the opposite - being so fidgety or restless that you have been moving around a lot more than usual: Several days 9. Thoughts that you would be better off , or of hurting yourself in some way: Not at all How difficult have these problems made it for you to do your work, take care of things at home, or get along with other people?: Not difficult at all Total Score: 3 Self-Efficacy 6-Item Scale 60-Day Re-eval Assessment: We would like to know how confident you are in doing certain activities. Please select your confidence level for: Fatigue Select Number: 5 Physical Discomfort or Pain Select Number: 6 Emotional Distress Select Number: 5 Other Symptoms or Health Problems Select Number: 4 Different Tasks and Activities Select Number: 6 Medication Select Number: 5 Total Score:: 5 Nutrition Survey Nutrition Survey Instructions Scoring Instructions Nutrition Survey Initial: Have you lost >10 lbs over the past 2 months without trying?: No Are you following a special diet at home for diabetes, low fat, or low salt?: No Are you interested in meeting with a dietitian for help understanding your diet?: Yes Do you eat less than 3 meals a day?: No Do you eat fatty meats (daigle, sausage, ribs, etc), fried foods, desserts, large amounts of salad dressings, margarine, butter, or cheese most days?: No Do you have food allergies? [Enter types in comment field]: Yes (lactose) Do you eat in restaurants more than 3 times a week?: No Do you season food with salt, seasoning salt, or garlic salt?: Yes Do you used canned, boxed, frozen meals, or soups, seasoning packets?: Yes Total Score:: 4 Exercise - 30-day Assessment Physician Prescribed Exercise Modalities: Treadmill, SciFit Stepper and SciFit Pro-II Ergometer Exercise - 60-day Assessment Visit Date of Eval: 02/19/25 Session #:: 21 Physician Prescribed Exercise Modalities: Treadmill, SciFit Stepper and SciFit Pro-II Ergometer Frequency: 3x/week for 12 weeks [36 sessions] Intensity: 60-80% of age predicted maximum heart rate reserve Duration: 30 - 45 minutes METs - Progression 0.5-1.0 weekly:: 0.5-1.0 Current METSs:: 3.8 Target Heart Rate:: 86-107 Target RPE 11-14 Current RPE:: 11-14 Current RPE:: 13 Maximum Excercise HR:: 87 Resting Blood Pressure: 140/50 Maximum Exercise Blood Pressure: 140/82 EKG Type: SB to NSR with rare pac/pvc Current Physical Activity or Exercising minutes: 30-45 Outcomes & Goals Goals:: Verbalizes understanding of THR, RPE & goal METS by session 6, Documents in home exercise log/reports 30 min aerobic 5 day/wk by DC and Demonstrates accurate pulse taking by DC Intervention & Plan Exercise Program Goals: Instruct on personal THR & RPE, Instruct on MET level & personal MET goal, Show patient to take own pulse /validate performance until accurate and Instruct on home exercise 30-day Reassessments 30 day Reassessments:: Progressing Reassessment Notes & Comments:: Pt utilizes RPE scale appropriately. Pt able to demonstrate accurate pulse taking with some guidance. Physical Activity Home Exercise Physical Activity - Home Exercise: Safe Exercise, Warm-up, Self-monitoring, Cool-Down, Home Exercise > 30 min Daily and Sitting Time <3 hours/daily Outcomes & Goals Outcomes/Goals: Demonstrates correct Warm-up/exercise Cool-Down (S3) if = 2.5 METs, Verbalizes symptoms of exercise intolerance by Session 3 (S3) and Demonstrate safe equipment use (S3) & follows exercise prescrition (6) Intervention & Plan Plan/Intervention: Instruct warm-up & cool-down if exercising at > 2 METs, Instruct on symptoms of exercise intolerance & actions to take, Instruct & monitor on saf and Assess intial functional capacity & safety risk 30-day Reassessments 30 day Reassessments:: Met Reassessment Notes & Comments:: Pt able to recognize symptoms of exercise intolerance and verbalizes actions to take if they occur. Exercise - 90-day Assessment Physician Prescribed Exercise Modalities: Treadmill, SciFit Stepper and SciFit Pro-II Ergometer Exercise - Final/Discharge Physician Prescribed Exercise Modalities: Treadmill, SciFit Stepper and SciFit Pro-II Ergometer Nutrition - 30-Day Assessment Program Goals Nutrition Program Goals Patient has diagnosis of Hyperlipidemia (ICD E78)?: Yes Visit Date of Eval: 02/19/25 Session #:: 21 Cholesterol/Lipids (Other Core Measures) Triglycerides (mg/dL): 81 Total Cholesterol (mg/dL): 169 LDL Cholesterol (mg/dL): 56 HDL Cholesterol (mg/dL): 79 Lipid Medication: rosuvastatin 40mg QHS Determine presence & major risk factors that modify LDL goal: Cigarette smoking, Hypertension or hypertensive medication, Low HDL cholesterol <40 mg/dL* and Age men > 45 years; women >/= 55 years Outcomes/Goals: Pt IDs own risk factors & lifestyle modifications by Session 10, Verbalizes symptoms of angina & response by session 3. and Pt independently manages Intervention/Plan: Advocate for lipid panel cholesterol medication if applicable, Instruct on personal lipid levels & lipid goals/NCEP guidelines and Instruct on cholesterol 30-day Reassessments:: Met Reassessment Notes & Comments:: Pt taking lipid medication as prescribed. Pt with recent lipid panel. Diabetes (Other Core Measures) Diabetes Type: Not Applicable Weight Mgt (Other Care) Not Applicable: No Height: 4 ft 11 in Weight:: 95 lb BMI: 19.1 BMI (Report if calculated above): 19 Diagnosis Overweight/Obesity BMI> 30% ICD-10 E66: No Diagnosis High BMI/Morbid Obesity BMI> 35% ICD-10 Z68: No Outcomes/Goals: Pt sets, maintains & shows weight loss goal & trend during rehab Intervention/Plan: Instruct on ideal BMI & set weight loss goal w/patient, Assist pt to ID & incorporate diet changes for weight loss by S9, Refer to Structured Weight Loss program as appropriate and Encourage goal of using 250-300dcal per session for weight loss 30 day Reassessments:: Met Healthy Eating Habits Will attend diet classes:: Yes Outcomes/Goals:: Consume diet rich in vegs,fruits,whole grain/high fiber,fish,lean meat and Limit sat/trans fats,cholesterol & added salts & sugars Intervention/Plan:: Assess current eating habits 30-day Reassessments:: Met Reassessment Notes & Comments:: Pt has attended healthy eating habits classes. Education Gave educational materials for:: Signs & symptoms of hypoglycemia, Signs & symptoms of hyperglycemia, Relate diabetes to coronary artery disease and Healthy eating Nutrition - 60-Day Assessment Weight Mgt (Other Care) Height: 4 ft 11 in Weight:: 95 lb BMI: 19.1 BMI (Report if calculated above): 19 Core - Final Assessment Hypertension Resting Blood Pressure:: 142/70 [place] [employer] Hypertension Guidelines Core - 60-Day Assessment Visit Date of Eval: 02/19/25 Session #:: 21 Medication Compliance Preventative Medication(s):: Aspirin, Clopidogrel/P2Y12 inhibit, Statin/lipid and Beta ajit H/O mental health issues: depression, anxiety, or addiction?: No Doesn?t believe in the benefits of treatment?: No Believes medications are unnecessary or harmful?: No Has a concern about medication side effects?: No Expresses concern over the cost of medications?: No Outcomes/Goals: Verbalizes medications,desired effect & common side effects @ DC, Pt self-reports following medication regimen and Keeps card in wallet w/medications listed by DC Interventions/plans: Instruct on medication effects & side effects, Review medication list w/patient every two weeks and Instruct importance of taking meds as ordered & assist problem solving 30-day Reassessments:: Met Reassessment Notes & Comments:: Pt denies any psychosocial needs at this time. Tobacco Use Tobacco Use: Non-smoker Hypertension Hypertension Diagnosis:: Hypertension ICD-10 I10 Resting Blood Pressure:: 140/50 Resting Blood Pressure:: 142/70 [place] [employer] Hypertension Guidelines Peak Exercise Blood Pressure:: 140/82 Outcomes/Goals: Able to verbalize/achieve optimal blood pressure <130/80 and Incorporates diet changes & exercise for blood pressure control by DC Interventions/plan: Instruct on optimal blood pressure, hypertension & medications and Instruct on effects of sodium, alcohol, stress, exercise &hypertension 30 day Reassessments:: Progressing Reassessment Notes & Comments:: Pt taking hypertensive medications as prescribed, pt encouraged to follow heart healthy low sodium diet. Psychosocial - 30-Day Assess Target Goals Target Goals Referral to Behavioral Health PS - Interventions: Yes: Attend Stress Management Classes Outcomes/Goals: See list Psychosocial Outcomes/Goals:: ID's personal stressors & 2 strategies to manage stress by discharge Psychosocial - 60-Day Assess VIsit Date of Eval: 02/19/25 Session #:: 21 History of previous Mental disease:: No History of Emotional Disorders: None Target Goals Target Goals Psychosocial Test Tool Used:: PHQ-9 Questionnaire phq-9 Severity See PHQ-9 Score: 3 Total Score:: 3 Referral to Behavioral Health PS - Interventions: Yes: Attend Stress Management Classes Outcomes/Goals: See list Psychosocial Outcomes/Goals:: ID's personal stressors & 2 strategies to manage stress by discharge Intervention/Plan: See List Interventions/Plan:: Assess stressors,coping strategies & signs of derpression on admission, Instruct/assist pt to develop coping & personal stress Mgt strategies, Refer to Behavioral Health if appropriate, Refer to Physician if appropriate and Instruct patient to recognize signs & symptoms of depression 30-day Reassessments: 30 day Reassessments:: Progressing Reassessment Notes & Comments:: Pt instructed on developing coping and stress management strategies to help when stressors may arise. Psychosocial - 90-Day Assess Target Goals Target Goals Referral to Behavioral Health PS - Interventions: Yes: Attend Stress Management Classes Psychosocial - Final Assessmen Target Goals Target Goals Referral to Behavioral Health PS - Interventions: Yes: Attend Stress Management Classes Nutrition - 90-Day Assessment Weight Mgt (Other Care) Height: 4 ft 11 in Weight:: 95 lb BMI: 19.1 BMI (Report if calculated above): 19 Nutrition - Final Assessment Weight Mgt (Other Care) Height: 4 ft 11 in Weight:: 95 lb BMI: 19.1 BMI (Report if calculated above): 19
[2025-02-19 09:06] VITALS: BP 140/50; BP 142/70; BMI 19.0; BMI 19.1
== END 2025-03-03 23:59 ==
LOC: CR 09:30
PROVIDERS: PCP Family Medicine; Referring Provider Internal Medicine Cardiovascular Disease; Visit Provider Internal Medicine Cardiovascular Disease
DX: I25.10 Atherosclerotic heart disease of native coronary artery without angina pectoris (principal); Z95.5 Presence of coronary angioplasty implant and graft; R79.89 Other specified abnormal findings of blood chemistry; Z95.1 Presence of aortocoronary bypass graft; I10 Essential (primary) hypertension; E78.00 Pure hypercholesterolemia, unspecified; C50.911 Malignant neoplasm of unspecified site of right female breast; C50.912 Malignant neoplasm of unspecified site of left female breast
CPT/HCPCS: 93798

== ENCOUNTER 2025-03-06 07:31 | Outpatient (RCR) | payer MEDICARE, SELFPAY ==
[2025-02-19 09:06] VITALS: BMI 19.1
== END 2025-04-02 23:59 ==
LOC: CR 07:31
PROVIDERS: PCP Family Medicine; Referring Provider Internal Medicine Cardiovascular Disease; Visit Provider Internal Medicine Cardiovascular Disease
DX: Z95.5 Presence of coronary angioplasty implant and graft (principal); I25.10 Atherosclerotic heart disease of native coronary artery without angina pectoris; R79.89 Other specified abnormal findings of blood chemistry; Z95.1 Presence of aortocoronary bypass graft; I10 Essential (primary) hypertension; E78.00 Pure hypercholesterolemia, unspecified; C50.911 Malignant neoplasm of unspecified site of right female breast; C50.912 Malignant neoplasm of unspecified site of left female breast
CPT/HCPCS: 93798